=== PATIENT | male | born 1950 | race Caucasian/White ===

== ENCOUNTER → 2017-09-27 | Outpatient (REF) | payer MEDICARE, OTHER ==
[2017-09-27 21:23] LABS: BASO # 0.1 10^3/uL (0.0-0.2); BASO % 0.6 % (0.0-1.0); EOS # 0.2 10^3/uL (0.0-0.50); EOS % 2.8 % (0.0-3.0); HEMATOCRIT 45.6 % (42.0-52.0); IMMATURE GRANULOCYTE % 0.2 % (0-0); LYMPH % 24.4 % (24.0-44.0); MEAN CORPUSCULAR HEMOGLOBIN 29.4 pg (27.0-33.0); MEAN CORPUSCULAR HGB CONC 32.9 g/dl (32.0-36.5); MEAN CORPUSCULAR VOLUME 89.2 fl (80.0-96.0); MONO # 0.7 10^3/uL (0.0-0.8); MONO % 8.8 % (0.0-5.0); NEUTROPHILS # 5.2 10^3/uL (1.8-7.7); NEUTROPHILS % 63.2 % (36.0-66.0); PLATELET COUNT, AUTOMATED 299 10^3/uL (150-450); RED BLOOD COUNT 5.11 10^6/uL (4.30-6.10); RED CELL DISTRIBUTION WIDTH 12.4 % (11.5-14.5); WHITE BLOOD COUNT 8.2 10^3/uL (4.0-10.0)
[2017-09-27 21:36] LABS: ALT/SGPT 26 U/L (12-78); AST/SGOT 19 U/L (7-37); C REACTIVE PROTEIN QUANTITATIV < 0.30 MG/DL (0.00-0.30); CREATININE FOR GFR 1.46 MG/DL (0.70-1.30)
[2017-09-27 21:55] LABS: ERYTHROCYTE SEDIMENTATION RATE 2 mm/hr (0-20)
== END ==
LOC: M LABDRWAD 10:39
DX: Z79.899 Other long term (current) 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 (principal); M45.0 Ankylosing spondylitis of multiple sites in spine
CPT/HCPCS: 84460

== ENCOUNTER → 2017-11-17 | Outpatient (CLI) | payer MEDICARE, BC, OTHER | LOC: M RAD 10:06 | DX: M51.37 Other intervertebral disc degeneration, lumbosacral region (principal) | CPT/HCPCS: 78306 ==

== ENCOUNTER → 2017-12-07 | Outpatient (CLI) | payer MEDICARE, BC, OTHER | LOC: M PAIN 09:45 | DX: M46.96 Unspecified inflammatory spondylopathy, lumbar region (principal); M45.9 Ankylosing spondylitis of unspecified sites in spine; M51.26 Other intervertebral disc displacement, lumbar region; E78.5 Hyperlipidemia, unspecified; I10 Essential (primary) hypertension; E11.9 Type 2 diabetes mellitus without complications; K21.9 Gastro-esophageal reflux disease without esophagitis; Z79.82 Long term (current) use of aspirin; Z79.4 Long term (current) use of insulin; Z79.899 Other long term (current) 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; Z88.8 Allergy status to other drugs, medicaments and biological substances | CPT/HCPCS: G0463 ==

== ENCOUNTER → 2018-01-04 | Outpatient (CLI) | payer MEDICARE, BC, OTHER ==
[~2018-01-04] MED LIST: BUPIVACAINE HCL 0.25% 30 ML VIAL As Ordered; ISOVUE-M 300 61% 15ML VIAL (Q9967) As Ordered; LIDOCAINE 1% SDV INJ 30 ML VIAL As Ordered; TRIAMCINOLONE ACETONIDE SUSP 40 MG/ML VIAL (J3301) As Ordered; diazePAM 5 MG TAB As Ordered; oxyCODONE 5MG TAB As Ordered
== END ==
LOC: M PAIN 08:30
DX: G89.29 Other chronic pain (principal); M47.816 Spondylosis without myelopathy or radiculopathy, lumbar region; M47.817 Spondylosis without myelopathy or radiculopathy, lumbosacral region; E78.5 Hyperlipidemia, unspecified; I10 Essential (primary) hypertension; E11.9 Type 2 diabetes mellitus without complications; K21.9 Gastro-esophageal reflux disease without esophagitis; Z79.82 Long term (current) use of aspirin; Z79.4 Long term (current) use of insulin; Z79.899 Other long term (current) 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
CPT/HCPCS: J3301

== ENCOUNTER → 2018-01-18 | Outpatient (CLI) | payer MEDICARE, BC, OTHER | LOC: M PAIN 10:00 | DX: M47.816 Spondylosis without myelopathy or radiculopathy, lumbar region (principal); M47.817 Spondylosis without myelopathy or radiculopathy, lumbosacral region; M79.1 Myalgia; E78.5 Hyperlipidemia, unspecified; I10 Essential (primary) hypertension; E11.9 Type 2 diabetes mellitus without complications; K21.9 Gastro-esophageal reflux disease without esophagitis; M19.90 Unspecified osteoarthritis, unspecified site; Z79.82 Long term (current) use of aspirin; Z79.4 Long term (current) use of insulin; Z79.899 Other long term (current) 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; Z88.8 Allergy status to other drugs, medicaments and biological substances | CPT/HCPCS: G0463 ==

== ENCOUNTER → 2018-02-03 | Outpatient (CLI) | payer MEDICARE, BC, OTHER ==
[~2018-02-03] MED LIST changes: +BUPIVACAINE HCL 0.25% 10 ML VIAL As Ordered; -ISOVUE-M 300 61% 15ML VIAL (Q9967) As Ordered; -LIDOCAINE 1% SDV INJ 30 ML VIAL As Ordered; -diazePAM 5 MG TAB As Ordered; -oxyCODONE 5MG TAB As Ordered
== END ==
LOC: M PAIN 10:00
DX: G89.29 Other chronic pain (principal); M79.1 Myalgia; E78.5 Hyperlipidemia, unspecified; I10 Essential (primary) hypertension; E11.9 Type 2 diabetes mellitus without complications; K21.9 Gastro-esophageal reflux disease without esophagitis; M45.9 Ankylosing spondylitis of unspecified sites in spine; Z79.82 Long term (current) use of aspirin; Z79.4 Long term (current) use of insulin; Z79.899 Other long term (current) 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; Z88.8 Allergy status to other drugs, medicaments and biological substances
CPT/HCPCS: J3301

== ENCOUNTER → 2018-02-22 | Outpatient (CLI) | payer MEDICARE, BC, OTHER | LOC: M PAIN 09:45 | DX: M47.816 Spondylosis without myelopathy or radiculopathy, lumbar region (principal); M47.817 Spondylosis without myelopathy or radiculopathy, lumbosacral region; M79.1 Myalgia; E78.5 Hyperlipidemia, unspecified; I10 Essential (primary) hypertension; E11.9 Type 2 diabetes mellitus without complications; K21.9 Gastro-esophageal reflux disease without esophagitis; Z79.4 Long term (current) use of insulin; Z79.82 Long term (current) use of aspirin; Z79.899 Other long term (current) 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; Z88.8 Allergy status to other drugs, medicaments and biological substances | CPT/HCPCS: G0463 ==

== ENCOUNTER → 2018-02-23 | Outpatient (CLI) | payer MEDICARE, BC, OTHER ==
[~2018-02-23] MED LIST changes: -BUPIVACAINE HCL 0.25% 10 ML VIAL As Ordered; +ISOVUE-M 300 61% 15ML VIAL (Q9967) As Ordered; +LIDOCAINE 1% SDV INJ 30 ML VIAL As Ordered
[2018-02-23 09:59] LABS: BEDSIDE GLUCOSE 187 MG/DL (80-115)
== END ==
LOC: M PAIN 09:30
DX: G89.29 Other chronic pain (principal); M46.1 Sacroiliitis, not elsewhere classified; E78.5 Hyperlipidemia, unspecified; I10 Essential (primary) hypertension; E11.9 Type 2 diabetes mellitus without complications; K21.9 Gastro-esophageal reflux disease without esophagitis; Z79.4 Long term (current) use of insulin; Z79.82 Long term (current) use of aspirin; Z79.899 Other long term (current) 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
CPT/HCPCS: J3301

== ENCOUNTER → 2018-06-01 | Outpatient (CLI) | payer MEDICARE, BC, OTHER ==
[~2018-06-01] MED LIST changes: +diazePAM 5 MG TAB As Ordered; +oxyCODONE 5MG TAB As Ordered
[2018-06-01 09:26] LABS: BEDSIDE GLUCOSE 188 MG/DL (83-110)
== END ==
LOC: M PAIN 08:30
DX: M47.816 Spondylosis without myelopathy or radiculopathy, lumbar region (principal); M47.817 Spondylosis without myelopathy or radiculopathy, lumbosacral region; E78.5 Hyperlipidemia, unspecified; I10 Essential (primary) hypertension; E11.9 Type 2 diabetes mellitus without complications; K21.9 Gastro-esophageal reflux disease without esophagitis; M45.9 Ankylosing spondylitis of unspecified sites in spine; Z79.82 Long term (current) use of aspirin; Z79.4 Long term (current) use of insulin; Z79.899 Other long term (current) 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; Z88.8 Allergy status to other drugs, medicaments and biological substances
CPT/HCPCS: J3301

== ENCOUNTER → 2018-06-23 | Outpatient (CLI) | payer MEDICARE, BC, OTHER | LOC: M PAIN 10:15 | DX: M47.816 Spondylosis without myelopathy or radiculopathy, lumbar region (principal); M47.817 Spondylosis without myelopathy or radiculopathy, lumbosacral region; E11.9 Type 2 diabetes mellitus without complications; E78.5 Hyperlipidemia, unspecified; I10 Essential (primary) hypertension; K21.9 Gastro-esophageal reflux disease without esophagitis; M19.90 Unspecified osteoarthritis, unspecified site; Z79.82 Long term (current) use of aspirin; Z79.4 Long term (current) use of insulin; Z79.899 Other long term (current) 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; Z88.8 Allergy status to other drugs, medicaments and biological substances | CPT/HCPCS: G0463 ==

== ENCOUNTER → 2018-08-11 | Outpatient (CLI) | payer MEDICARE, BC, OTHER | LOC: M PAIN 09:15 | DX: M47.27 Other spondylosis with radiculopathy, lumbosacral region (principal); G89.29 Other chronic pain; E11.9 Type 2 diabetes mellitus without complications; I10 Essential (primary) hypertension; E78.5 Hyperlipidemia, unspecified; K21.9 Gastro-esophageal reflux disease without esophagitis; M19.90 Unspecified osteoarthritis, unspecified site; Z79.82 Long term (current) use of aspirin; Z79.4 Long term (current) use of insulin; Z79.899 Other long term (current) 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; Z88.8 Allergy status to other drugs, medicaments and biological substances | CPT/HCPCS: G0463 ==

== ENCOUNTER → 2018-09-15 | Outpatient (CLI) | payer MEDICARE, BC, OTHER ==
[~2018-09-15] MED LIST changes: +ASPI81TA85 PO; +ATEN100T PO; -BUPIVACAINE HCL 0.25% 30 ML VIAL As Ordered; +BUPIVACAINE HCL 0.25% 30 ML VIAL As Ordered ONE; +CITA20TA4 PO; +FLON0.054; +HYDR25TAB PO; +INSUH10VL SC; +INSULADS SC; -ISOVUE-M 300 61% 15ML VIAL (Q9967) As Ordered; +ISOVUE-M 300 61% 15ML VIAL (Q9967) As Ordered ONE; -LIDOCAINE 1% SDV INJ 30 ML VIAL As Ordered; +LIDOCAINE 1% SDV INJ 30 ML VIAL As Ordered ONE; +LISI40TAB PO; +PANT40TA3 PO; +SIMV80TA13 PO; -TRIAMCINOLONE ACETONIDE SUSP 40 MG/ML VIAL (J3301) As Ordered; +TRIAMCINOLONE ACETONIDE SUSP 40 MG/ML VIAL (J3301) As Ordered ONE; -diazePAM 5 MG TAB As Ordered; +diazePAM 5 MG TAB As Ordered ONE; -oxyCODONE 5MG TAB As Ordered; +oxyCODONE 5MG TAB As Ordered ONE
--- NOTE | 2018-09-15 10:57 | REP ---
Partial lumbar spine series: Two views . History: Injection procedure for pain. 27 seconds of fluoroscopy time is reported. Findings: A sequence of two fluoroscopically obtained last image hold procedural spot radiographs of the lumbar spine document needle position and contrast injection associated with injection procedure. Electronically Signed by Sánchez Hathaway MD 09/15/2018 10:48 A
--- NOTE | 2018-10-04 02:02 | ECWPNPC ---
PATIENT NAME: TYE CLAUDIO : 1950 GENDER: MALE VISIT DATE: 09/15/2018 DISCHARGE DATE: 09/15/18 1041 VISIT LOCKED DATE TIME: PHYSICIAN: GARRETT MEDLEY MD RESOURCE: GARRETT MEDLEY MD REASON FOR APPOINTMENT 1. BILAT. L4/5-L5/S1 THERAPEUTIC FACET BLOCK HISTORY OF PRESENT ILLNESS HISTORY OF PRESENT ILLNESS: PAIN THE PATIENT DESCRIBES THE PAIN... FALL RISK SCREENING: SCREENING :NO FALLS IN THE PAST YEAR CURRENT MEDICATIONS TAKING ASPIRIN 81 81 MG TABLET CHEWABLE 1 TABLET ORALLY ONCE A DAY, NOTES: 09/14 2099 TAKING ATENOLOL 100 MG TABLET 1 TABLET ORALLY ONCE A DAY, NOTES: 09/14 2099 TAKING CITALOPRAM HYDROBROMIDE 20 MG TABLET 1 TABLET ORALLY ONCE A DAY, NOTES: 09/14 2099 TAKING FLONASE 50 MCG/DOSE INHALER 1 SPRAY IN EACH NOSTRIL NASALLY ONCE A DAY, NOTES: NONE RECENT TAKING HYDROCHLOROTHIAZIDE 25 MG TABLET 1 TABLET IN THE MORNING ORALLY ONCE A DAY, NOTES: 09/14 08 TAKING NOVOLOG FLEXPEN 100 UNIT/ML SOLUTION PEN-INJECTOR SLIDING SCALE SUBCUTANEOUS , NOTES: 18 UNITS 09/14 1799 TAKING LANTUS SOLOSTAR 100 UNIT/ML SOLUTION 60 UNITS SUBCUTANEOUS DAILY, NOTES: 09/14 2099 TAKING LISINOPRIL 40 MG TABLET 1 TABLET ORALLY ONCE A DAY, NOTES: 09/14 2099 TAKING PANTOPRAZOLE SODIUM 40 MG TABLET DELAYED RELEASE 1 TABLET ORALLY ONCE A DAY, NOTES: 09/14 2099 TAKING CRESTOR 20 MG TABLET 1 TABLET ORALLY ONCE A DAY, NOTES: 09/14 2099 TAKING METFORMIN HCL 500 MG TABLET 2 TABLET WITH MEALS ORALLY TWICE A DAY, NOTES: 09/14 2099 TAKING REMICADE 100 MG SOLUTION RECONSTITUTED 900 MG INTRAVENOUS EVERY 4 WEEKS, NOTES: 08/10 TAKING IBUPROFEN 600 MG TABLET 1 TABLET WITH FOOD OR MILK NEEDED ORALLY THREE TIMES A DAY, NOTES: 09/14 2099 TAKING ACETAMINOPHEN 325 MG CAPSULE 1 CAPSULE NEEDED ORALLY EVERY 4 HRS, NOTES: NONE RECENT TAKING GABAPENTIN 300 MG CAPSULE 1-2 DIRECTED ORALLY 2 IN AM,2 IN AFTENOON,1 AT BEDTIME, NOTES: 09/15 0700 NOT-TAKING TIZANIDINE HCL 2 MG TABLET 1 TABLET NEEDED ORALLY THREE TIMES A DAY MEDICATION LIST REVIEWED AND RECONCILED WITH THE PATIENT PAST MEDICAL HISTORY HYPERLIPIDEMIA HYPERTENSION DIABETES MELLITUS TYPE 2 ACID REFLUX ARTHRITIS ANKYLOSIS SPONDYLITIS/ ARTHRITIS HEALTH SPEC - [place] LOW BACK PAIN ALLERGIES LIPITOR: MUSCLE PAIN: SIDE EFFECTS SURGICAL HISTORY LEFT KNEE SURGERY RIGHT FOOT BUNIONECTOMY FAMILY HISTORY FATHER: , DIAGNOSED WITH DIABETES MOTHER: ALIVE, DIAGNOSED WITH STROKE, OTHER 4 SON(S) , 1 DAUGHTER(S) - HEALTHY. MOTHER HAS HISTORY OF ARTHRITIS AND STROKE. SOCIAL HISTORY GENERAL: TOBACCO USE ARE YOU A:NONSMOKER ALCOHOL SCREENING DID YOU HAVE A DRINK CONTAINING ALCOHOL IN THE PAST YEAR?YES HOW OFTEN DID YOU HAVE SIX OR MORE DRINKS ON ONE OCCASION IN THE PAST YEAR?NEVER (0 POINTS) HOW MANY DRINKS DID YOU HAVE ON A TYPICAL DAY WHEN YOU WERE DRINKING IN THE PAST YEAR?1 OR 2 (0 POINTS) HOW OFTEN DID YOU HAVE A DRINK CONTAINING ALCOHOL IN THE PAST YEAR?TWO TO FOUR TIMES A MONTH (2 POINTS) POINTS2 INTERPRETATIONNEGATIVE RECREATIONAL DRUG USE DRUG USE?NO CAFFEINE CAFFEINE USE?YES COFFEE DAILY SYNAGOGUE [id number] SHINTO LANGUAGE LANGUAGES SPOKEN:PARAGUAYAN LEARNING BARRIERS / SPECIAL NEEDS BARRIERS TO LEARNING?NO HEARING IMPAIRED?NO VISION IMPAIRED?YES :CORRECTIVE LENSES COGNITIVELY IMPAIRED?NO READINESS TO LEARN?YES LEARNING PREFERENCES?YES :DEMONSTRATION/VERBAL INSTRUCTION LEARNING CAPABILITIES PRESENT?YES EMOTIONAL BARRIERS?NO SPECIAL DEVICES?NO SR SOLUTIONS CONSULTANT NEEDED?NO DOMESTIC VIOLENCE DO YOU FEEL SAFE IN YOUR ENVIRONMENT?YES NEW PATIENT PAIN DIARY FROM 0-10, WHAT LEVEL IS YOUR PAIN TODAY?7 PAIN CLINIC PFS, CLERGY, PUBLIC HEALTH REFERRALS PFS REFERRAL NEEDED?NO CLERGY REFERRAL NEEDED?NO PUBLIC HEALTH REFERRAL NEEDED?NO HAS THE PATIENT BEEN EDUCATED REGARDING HIS/HER PLAN OF CARE?YES HAS THE PATIENT BEEN EDUCATED REGARDING PAIN, THE RISK FOR PAIN, THE IMPORTANCE OF EFFECTIVE PAIN MANAGEMENT, AND THE PAIN ASSESSMENT PROCESS?YES ADVANCE DIRECTIVE ADVANCE DIRECTIVE DISCUSSED WITH PATIENT:YES REVIEWED 02/23/18 0945 LAS06/01/18 0905 REVIEWED WITH PT. PARMJITWED WITH PT 06/23/18 1032 BV09/15/18 REVIEWED WITH PT. AD. HOSPITALIZATION/MAJOR DIAGNOSTIC PROCEDURE KNEE SURG REVIEW OF SYSTEMS REVIEWED BY: PROVIDER: . CONSTITUTIONAL: ANY CHANGE IN YOUR MEDICAL CONDITION? NO . CHILLS NO . FEVER NO . INFECTION: DO YOU HAVE NEW INFECTIONS? NO . DO YOU HAVE HISTORY OF MRSA? NO . MUSCULOSKELETAL: ANY NEW PATTERNS OF PAIN OR NUMBNESS? NO . GASTROENTEROLOGY: ANY NEW CHANGE IN BOWEL CONTROL? NO . GENITOURINARY: ANY NEW CHANGE IN BLADDER CONTROL? NO . IS THERE A CHANCE YOU COULD BE ? NO . HEMATOLOGY/LYMPH: DO YOU TAKE ANY BLOOD THINNERS? (FOR EXAMPLE- COUMADIN, PLAVIX, AGGRENOX, PLATEL, PRADAXA, OR XARELTO) NO . WHEN WAS YOUR LAST DOSE? DATE: TIME: . NEUROLOGY: HAVE YOU FALLEN IN THE PAST 6 MONTHS? NO . ANY NEW EXTREMITY NUMBNESS OR WEAKNESS? NO . CARDIOLOGY: DO YOU HAVE A PACEMAKER OR DEFIBRILLATOR? NO . RESPIRATORY: HAVE YOU BEEN SICK IN THE PAST WEEK? NO . FEVER NO . FLU LIKE SYMPTOMS? NO . COUGH NO . INTEGUMENTARY: DO YOU HAVE ANY RASHES OR OPEN SORES? NO . ALLERGIC/IMMUNO: ARE YOU ALLERGIC TO SHELLFISH OR IV DYE? NO . ANY NEW ALLERGIES? NO . PSYCHIATRIC: DO YOU HAVE THOUGHTS OF HURTING YOURSELF OR SOMEONE ELSE? NO . ARE YOU ABUSED, NEGLECTED, OR IN AN UNSAFE ENVIRONMENT? NO . ENDOCRINOLOGY: ARE YOU DIABETIC? YES, FSBS 119 @ 0730 THIS MORNING, DR. MEDLEY AWARE . OTHER: DO YOU NEED ANY PRESCRIPTIONS? NO . IF YES, PLEASE LIST: ____ . ANY NEW PROBLEMS WITH YOUR MEDICATIONS? NO . WHEN DID YOU LAST EAT? 09/14 2100 . WHEN DID YOU LAST DRINK? 09/15 0700 . WHAT DID YOU LAST DRINK? ____ . NAME OF PERSON DRIVING YOU HOME? KELECHI CLAUDIO . DO YOU HAVE ANY OTHER QUESTIONS OR CONCERNS NO PT HAS NOT HAD ANY VACCINES IN THE PAST 30 DAYS. HE DID RECEIVE [id number](GETS EVERY 4 W[address]) DR[address] MEDLEY EXPLAINED THE RISKS OF GETTING THE PROCEDURE TODAY AND PT CHOSE TO PROCEED WITH THE PROCEDURE. . VITAL SIGNS WT 258 LBS, HT 70 IN, BMI 37.02 INDEX, BP 134/75 MM HG, HR 77 /MIN, RR 18 /MIN, TEMP 97.8 F, OXYGEN SAT % 96%, SAFE IN ENV? (Y/N) Y, NA INITIALS AK 09:06, REVIEWED BY: AD. ASSESSMENTS SPONDYLOSIS OF LUMBAR REGION WITHOUT MYELOPATHY OR RADICULOPATHY - M47.816 (PRIMARY) SPONDYLOSIS OF LUMBOSACRAL REGION WITHOUT MYELOPATHY OR RADICULOPATHY - M47.817 PROCEDURES PN LUMBAR FACET BLOCK THERAPEUTIC PRE PROCEDURE DIAGNOSIS LUMBAR SPONDYLOSIS, LUMBOSACRAL SPONDYLOSIS POST PROCEDURE DIAGNOSIS LUMBAR SPONDYLOSIS, LUMBOSACRAL SPONDYLOSIS PROCEDURE BILATERAL L4-L5 AND BILATERAL L5-S1 LUMBAR FACET THERAPEUTIC BLOCK SURGEON DR. GARRETT MEDLEY CLASSIFICATION COUNSELOR NONE ANESTHESIA LOCAL PRE PROCEDURE NOTE THE PATIENT HAS A HISTORY OF CHRONIC LOW BACK PAIN. I EVALUATE THE PATIENT AND REVIEWED THE CHART. I WENT OVER THE RISKS, ALTERNATIVES, AND BENEFITS ASSOCIATED WITH THIS PROCEDURE. THE PATIENT WOULD LIKE TO PROCEED AND GIVE CONSENT TO PERFORMED THE PROCEDURE. THE PATIENT DENIES UNEXPLAINABLE WEIGHT LOSS, FEVER, CHILLS, OR NEW CHANGES IN URINARY OR BOWEL CONTROL DESCRIPTION OF PROCEDURE THE PATIENT WAS BROUGHT TO THE PROCEDURE ROOM AND PLACED IN THE PRONE POSITION. THE LUMBOSACRAL AREA WAS CLEANED WITH CHLORAPREP SOLUTION AND DRAPED ASEPTICALLY. THE PROCEDURE WAS DONE UNDER STERILE CONDITIONS. I CHECKED LATERALITY AND THE LEVEL WHERE THE PROCEDURE WAS GOING TO BE PERFORMED WITH THE PATIENT AND THE SUPPORTING STAFF AT THE MOMENT OF THE TIME OUT IN THE PROCEDURE ROOM. UNDER FLUOROSCOPIC GUIDANCE, THE TARGET POINT WAS SELECTED AT THE RIGHT AND LEFT L4-L5 AND RIGHT AND LEFT L5-S1 FACET JOINT. TARGET POINT WAS SELECTED AFTER LATERAL ROTATION AND TILT OF THE MAGNIFIER OF THE C-ARM. LIDOCAINE 0.5% WAS USED TO NUMB THE SKIN AND THE SUBCUTANEOUS TISSUE BELOW IT. SPINAL NEEDLES, 22-GAUGE, WERE ADVANCED UNDER FLUOROSCOPIC GUIDANCE AND FOLLOWING PATIENT FEEDBACK UNTIL THE TARGETS WERE TOUCHED. THE POSITION OF THE NEEDLES WAS VERIFIED WITH AP AND LATERAL VIEWS. AFTER PROPER POSITION OF THE NEEDLES WAS ACHIEVED, ISOVUE-M DYE 30% 0.1 ML WAS INJECTED SHOWING ADEQUATE SPREAD OF THE DYE. THEN A SOLUTION OF 1.9 ML OF BUPIVACAINE 0.125% OF KENALOG 10 MG WAS INJECTED AT EACH SITE. THERE WAS NO EVIDENCE OF BLOOD, PARESTHESIA OR CEREBROSPINAL FLUID DURING THE PROCEDURE. THE PATIENT WAS SENT TO THE RECOVERY ROOM. THE PATIENT WAS MOVING THE EXTREMITIES AND DOING WELL. THERE WAS NO COMPLICATION DURING THE PROCEDURE. FLUOROSCOPY TIME WAS 27 SECONDS POST PROCEDURE NOTE THE PATIENT WILL BE SEEN IN A FOLLOW UP IN THE NEXT FEW WEEKS. INSTRUCTIONS WERE GIVEN, QUESTIONS WERE ANSWERED, AND THE PATIENT EXPRESSED UNDERSTANDING AND AGREES WITH THE PLAN. I, BUCK LANCASTER, DOCUMENTED THE ABOVE INFORMATION ACTING A SCRIBE FOR DR. MEDLEY. I HAVE REVIEWED THE ABOVE DOCUMENT, WRITTEN BY BUCK NARANJO AND I VERIFY THAT IT IS ACCURATE. DIAGNOSTIC IMAGING [facility] FACET BLOCK (PAIN)[id number] PROCEDURE CODES 6045F RADXPS IN END [id number] PXD [id number] INJ PARAVERT F JNT L/S 1 LEV, MODIFIERS: 50 [id number] INJ PARAVERT F JNT L/S 2 LEV, MODIFIERS: 50 DISPOSITION & COMMUNICATION FOLLOW UP 3 WEEKS ELECTRONICALLY SIGNED BY GARRETT MEDLEY MD, MD ON 10/03/2018 AT 11:08 AM EST DISCLAIMER : THIS IS A VISIT SUMMARY EXTRACTED FROM THE [employer] CHART. IT IS NOT A COPY OF THE [employer] PROGRESS NOTE. MTDD
== END ==
LOC: M PAIN 08:30
PROVIDERS: ATTEND Anesthesiology
DX: G89.29 Other chronic pain (principal); M47.816 Spondylosis without myelopathy or radiculopathy, lumbar region; M47.817 Spondylosis without myelopathy or radiculopathy, lumbosacral region; E11.9 Type 2 diabetes mellitus without complications; I10 Essential (primary) hypertension; E78.5 Hyperlipidemia, unspecified; K21.9 Gastro-esophageal reflux disease without esophagitis; M19.90 Unspecified osteoarthritis, unspecified site; M45.9 Ankylosing spondylitis of unspecified sites in spine; E66.01 Morbid (severe) obesity due to excess calories; Z68.37 Body mass index [BMI] 37.0-37.9, adult; Z79.82 Long term (current) use of aspirin; Z79.4 Long term (current) use of insulin; Z79.899 Other long term (current) 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; Z88.8 Allergy status to other drugs, medicaments and biological substances
CPT/HCPCS: 64493; 64494; J3301; Q9967

== ENCOUNTER → 2018-10-11 | Outpatient (CLI) | payer MEDICARE, BC, OTHER ==
[~2018-10-11] MED LIST changes: -BUPIVACAINE HCL 0.25% 30 ML VIAL As Ordered ONE; -ISOVUE-M 300 61% 15ML VIAL (Q9967) As Ordered ONE; -LIDOCAINE 1% SDV INJ 30 ML VIAL As Ordered ONE; -TRIAMCINOLONE ACETONIDE SUSP 40 MG/ML VIAL (J3301) As Ordered ONE; -diazePAM 5 MG TAB As Ordered ONE; -oxyCODONE 5MG TAB As Ordered ONE
--- NOTE | 2018-10-27 00:20 | ECWPNPC ---
PATIENT NAME: TYE CLAUDIO : 1950 GENDER: MALE VISIT DATE: 10/11/2018 DISCHARGE DATE: 10/11/18 1148 VISIT LOCKED DATE TIME: PHYSICIAN: NUHA DE JESUS RESOURCE: NUHA DE JESUS REASON FOR APPOINTMENT 1. POST PROC HISTORY OF PRESENT ILLNESS HISTORY OF PRESENT ILLNESS: HERE FOR POST PROCEDURE F/U.HAD BILAT. L4/5-L5/S1 FACET BLOCK THERAPEUTIC ON 09/15/18.REPORTING >50% IMPROVEMENT THAT CONTINUES TODAY ACROSS LOW BACK.CHIEF AREA OF PAIN IS LOW THORACIC.RATING LOW THORACIC PAIN 5/10.PAIN IS AGGREVATED WITH POSITION CHANGE. PAIN THE PATIENT DESCRIBES THE PAIN... FALL RISK SCREENING: SCREENING :NO FALLS IN THE PAST YEAR CURRENT MEDICATIONS TAKING ASPIRIN 81 81 MG TABLET CHEWABLE 1 TABLET ORALLY ONCE A DAY, NOTES: 09/14 2099 TAKING ATENOLOL 100 MG TABLET 1 TABLET ORALLY ONCE A DAY, NOTES: 09/14 2099 TAKING CITALOPRAM HYDROBROMIDE 20 MG TABLET 1 TABLET ORALLY ONCE A DAY, NOTES: 09/14 2099 TAKING FLONASE 50 MCG/DOSE INHALER 1 SPRAY IN EACH NOSTRIL NASALLY ONCE A DAY, NOTES: NONE RECENT TAKING HYDROCHLOROTHIAZIDE 25 MG TABLET 1 TABLET IN THE MORNING ORALLY ONCE A DAY, NOTES: 09/14 0800 TAKING NOVOLOG FLEXPEN 100 UNIT/ML SOLUTION PEN-INJECTOR SLIDING SCALE SUBCUTANEOUS , NOTES: 18 UNITS 09/14 1799 TAKING LANTUS SOLOSTAR 100 UNIT/ML SOLUTION 60 UNITS SUBCUTANEOUS DAILY, NOTES: 09/14 2099 TAKING LISINOPRIL 40 MG TABLET 1 TABLET ORALLY ONCE A DAY, NOTES: 09/14 2099 TAKING PANTOPRAZOLE SODIUM 40 MG TABLET DELAYED RELEASE 1 TABLET ORALLY ONCE A DAY, NOTES: 09/14 2099 TAKING CRESTOR 20 MG TABLET 1 TABLET ORALLY ONCE A DAY, NOTES: 09/14 2099 TAKING METFORMIN HCL 500 MG TABLET 2 TABLET WITH MEALS ORALLY TWICE A DAY, NOTES: 09/14 2099 TAKING REMICADE 100 MG SOLUTION RECONSTITUTED 900 MG INTRAVENOUS EVERY 4 WEEKS, NOTES: 08/10 TAKING IBUPROFEN 600 MG TABLET 1 TABLET WITH FOOD OR MILK NEEDED ORALLY THREE TIMES A DAY, NOTES: 09/14 2099 TAKING ACETAMINOPHEN 325 MG CAPSULE 1 CAPSULE NEEDED ORALLY EVERY 4 HRS, NOTES: NONE RECENT TAKING GABAPENTIN 300 MG CAPSULE 1-2 DIRECTED ORALLY 2 IN AM,2 IN AFTENOON,1 AT BEDTIME, NOTES: 09/15 0700 NOT-TAKING TIZANIDINE HCL 2 MG TABLET 1 TABLET NEEDED ORALLY THREE TIMES A DAY MEDICATION LIST REVIEWED AND RECONCILED WITH THE PATIENT PAST MEDICAL HISTORY HYPERLIPIDEMIA HYPERTENSION DIABETES MELLITUS TYPE 2 ACID REFLUX ARTHRITIS ANKYLOSIS SPONDYLITIS/ ARTHRITIS HEALTH SPEC - [place] LOW BACK PAIN ALLERGIES LIPITOR: MUSCLE PAIN: SIDE EFFECTS SURGICAL HISTORY LEFT KNEE SURGERY RIGHT FOOT BUNIONECTOMY FAMILY HISTORY FATHER: , DIAGNOSED WITH DIABETES MOTHER: ALIVE, DIAGNOSED WITH STROKE, OTHER 4 SON(S) , 1 DAUGHTER(S) - HEALTHY. MOTHER HAS HISTORY OF ARTHRITIS AND STROKE. SOCIAL HISTORY GENERAL: TOBACCO USE ARE YOU A:NONSMOKER ALCOHOL SCREENING DID YOU HAVE A DRINK CONTAINING ALCOHOL IN THE PAST YEAR?YES HOW OFTEN DID YOU HAVE SIX OR MORE DRINKS ON ONE OCCASION IN THE PAST YEAR?NEVER (0 POINTS) HOW MANY DRINKS DID YOU HAVE ON A TYPICAL DAY WHEN YOU WERE DRINKING IN THE PAST YEAR?1 OR 2 (0 POINTS) HOW OFTEN DID YOU HAVE A DRINK CONTAINING ALCOHOL IN THE PAST YEAR?TWO TO FOUR TIMES A MONTH (2 POINTS) POINTS2 INTERPRETATIONNEGATIVE RECREATIONAL DRUG USE DRUG USE?NO CAFFEINE CAFFEINE USE?YES COFFEE DAILY RESTORATION [id number] AMISH LANGUAGE LANGUAGES SPOKEN:[place] LEARNING BARRIERS / SPECIAL NEEDS BARRIERS TO LEARNING?NO HEARING IMPAIRED?NO VISION IMPAIRED?YES :CORRECTIVE LENSES COGNITIVELY IMPAIRED?NO READINESS TO LEARN?YES LEARNING PREFERENCES?YES :DEMONSTRATION/VERBAL INSTRUCTION LEARNING CAPABILITIES PRESENT?YES EMOTIONAL BARRIERS?NO SPECIAL DEVICES?NO DRAWING HAND NEEDED?NO DOMESTIC VIOLENCE DO YOU FEEL SAFE IN YOUR ENVIRONMENT?YES NEW PATIENT PAIN DIARY FROM 0-10, WHAT LEVEL IS YOUR PAIN TODAY?7 PAIN CLINIC PFS, CLERGY, PUBLIC HEALTH REFERRALS PFS REFERRAL NEEDED?NO CLERGY REFERRAL NEEDED?NO PUBLIC HEALTH REFERRAL NEEDED?NO HAS THE PATIENT BEEN EDUCATED REGARDING HIS/HER PLAN OF CARE?YES HAS THE PATIENT BEEN EDUCATED REGARDING PAIN, THE RISK FOR PAIN, THE IMPORTANCE OF EFFECTIVE PAIN MANAGEMENT, AND THE PAIN ASSESSMENT PROCESS?YES ADVANCE DIRECTIVE ADVANCE DIRECTIVE DISCUSSED WITH PATIENT:YES PT HAS NO ADVANCED DIRECTIVES, INFORMATION GIVEN, DECLINES ASSISTANCE REVIEWED 02/23/18 0945 LAS06/01/18 0905 REVIEWED WITH PT. ADREDUINIEWED WITH PT 06/23/18 1032 BV09/15/18 REVIEWED WITH PT. NAYELID WITH PT 10/11/18 1130 LAS. HOSPITALIZATION/MAJOR DIAGNOSTIC PROCEDURE KNEE SURG REVIEW OF SYSTEMS REVIEWED BY: PROVIDER: NUHA CALVIN . CONSTITUTIONAL: ANY CHANGE IN YOUR MEDICAL CONDITION? NO . CHILLS NO . FEVER NO . INFECTION: DO YOU HAVE NEW INFECTIONS? NO . DO YOU HAVE HISTORY OF MRSA? NO . MUSCULOSKELETAL: ANY NEW PATTERNS OF PAIN OR NUMBNESS? NO . GASTROENTEROLOGY: ANY NEW CHANGE IN BOWEL CONTROL? NO . GENITOURINARY: ANY NEW CHANGE IN BLADDER CONTROL? NO . IS THERE A CHANCE YOU COULD BE ? NO . HEMATOLOGY/LYMPH: DO YOU TAKE ANY BLOOD THINNERS? (FOR EXAMPLE- COUMADIN, PLAVIX, AGGRENOX, PLATEL, PRADAXA, OR XARELTO) NO . WHEN WAS YOUR LAST DOSE? DATE: TIME: . NEUROLOGY: HAVE YOU FALLEN IN THE PAST 12 MONTHS? NO . ANY NEW EXTREMITY NUMBNESS OR WEAKNESS? NO . CARDIOLOGY: DO YOU HAVE A PACEMAKER OR DEFIBRILLATOR? NO . RESPIRATORY: HAVE YOU BEEN SICK IN THE PAST WEEK? NO . FEVER NO . FLU LIKE SYMPTOMS? NO . COUGH NO . INTEGUMENTARY: DO YOU HAVE ANY RASHES OR OPEN SORES? NO . ALLERGIC/IMMUNO: ARE YOU ALLERGIC TO IV DYE? NO . ANY NEW ALLERGIES? NO . PSYCHIATRIC: DO YOU HAVE THOUGHTS OF HURTING YOURSELF OR SOMEONE ELSE? NO . ARE YOU ABUSED, NEGLECTED, OR IN AN UNSAFE ENVIRONMENT? NO . ENDOCRINOLOGY: ARE YOU DIABETIC? YES . OTHER: DO YOU NEED ANY PRESCRIPTIONS? NO . IF YES, PLEASE LIST: ____ . ANY NEW PROBLEMS WITH YOUR MEDICATIONS? NO . WHEN DID YOU LAST EAT? ____ . WHEN DID YOU LAST DRINK? ____ . WHAT DID YOU LAST DRINK? ____ . NAME OF PERSON DRIVING YOU HOME? ____ . DO YOU HAVE ANY OTHER QUESTIONS OR CONCERNS NO . VITAL SIGNS WT 251 LBS, HT 70 IN, BMI 36.01 INDEX, BP 115/72 MM HG, HR 79 /MIN, RR 18 /MIN, TEMP 97.5 F, OXYGEN SAT % 94%, SAFE IN ENV? (Y/N) YES, NA INITIALS SC 11:18, REVIEWED BY: MARCIO. EXAMINATION GENERAL EXAMINATION: GENERAL APPEARANCE:AWAKE,ALERT ,PLEAASANT . PSYCHAFFECT NORMAL . LUNGS:LUNG ANDERSON ARE CLEAR TO AUSCULTATION BILATERALLY. GOOD MOVEMENT OF AIR . HEART:S1, S2 IN A REGULAR RATE AND RHYTHM. NO SIGNIFICANT MURMURS, RUBS OR GALLOPS NOTED . THORACIC SPINETENDER WITH ROJM OF SPINE LOW TO MID THORACIC. ASSESSMENTS THORACIC SPINE PAIN - M54.6 (PRIMARY) TREATMENT THORACIC SPINE PAIN [facility] MRI SPINE,THORACIC WITHOUT [id number] [place] 10/11/2018 11:47:21 AM > MEDICARE NO AUTH NEEDED PROCEDURE CODES FA211 ESTABILISHED PATIENT [facility] FACILITY CHARGE DISPOSITION & COMMUNICATION FOLLOW UP 4 WEEKS (REASON: REVIEW MRI) ELECTRONICALLY SIGNED BY MARIXA FONTANA ON 10/26/2018 AT 02:01 PM EST DISCLAIMER : THIS IS A VISIT SUMMARY EXTRACTED FROM THE [employer] CHART. IT IS NOT A COPY OF THE [employer] PROGRESS NOTE. MYNOR
== END ==
LOC: M PAIN 10:00
PROVIDERS: ATTEND Nurse Practitioner Family
DX: M54.6 Pain in thoracic spine (principal); E78.5 Hyperlipidemia, unspecified; I10 Essential (primary) hypertension; E11.9 Type 2 diabetes mellitus without complications; K21.9 Gastro-esophageal reflux disease without esophagitis; M45.9 Ankylosing spondylitis of unspecified sites in spine; Z79.82 Long term (current) use of aspirin; Z79.4 Long term (current) use of insulin; Z79.899 Other long term (current) 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; Z88.8 Allergy status to other drugs, medicaments and biological substances

== ENCOUNTER → 2018-10-31 | Outpatient (CLI) | payer MEDICARE, BC, OTHER ==
--- NOTE | 2018-10-31 14:07 | REP ---
MR THORACIC SPINE WITHOUT CONTRAST: HISTORY: Thoracic pain. A disc bulge is present at the T8-9 level. There is minimal effacement of the thecal sac without spinal cord compression. The T8 neural foramina are patent. A disc bulge is present at the T12-L1 level. There is minimal effacement of the thecal sac without spinal cord compression. The T12 neural foramina are patent. There is no other disc bulge or herniation. The remaining neural foramen are patent. The spinal cord is normal in signal intensity. There is loss of height of several mid and lower thoracic intervertebral discs. Increased signal intensity on T2-weighted images is present in the endplates of several mid and lower thoracic vertebral bodies. This represents degenerative change. IMPRESSION: Disc bulges at the T8-9 and T12-L1 levels without spinal cord compression. Electronically Signed by Rosalio Atkinson MD 10/31/2018 02:10 P
== END ==
LOC: M RAD 10:35
PROVIDERS: ATTEND Nurse Practitioner Family
DX: M51.24 Other intervertebral disc displacement, thoracic region (principal); M51.25 Other intervertebral disc displacement, thoracolumbar region

== ENCOUNTER → 2018-11-17 | Outpatient (CLI) | payer MEDICARE, BC, OTHER ==
--- NOTE | 2018-12-03 02:29 | ECWPNPC ---
PATIENT NAME: TYE CLAUDIO : 1950 GENDER: MALE VISIT DATE: 11/17/2018 DISCHARGE DATE: 11/17/18 1609 VISIT LOCKED DATE TIME: PHYSICIAN: NUHA DE JESUS RESOURCE: NUHA DE JESUS DISCLAIMER : THIS IS A VISIT SUMMARY [facility]ED FROM [facility]. IT IS NOT A COPY OF THE [facility] PROGRESS NOTE. MYNOR
== END ==
LOC: M PAIN 14:45
PROVIDERS: ATTEND Nurse Practitioner Family
DX: M47.814 Spondylosis without myelopathy or radiculopathy, thoracic region (principal); G89.29 Other chronic pain; E11.9 Type 2 diabetes mellitus without complications; I10 Essential (primary) hypertension; K21.9 Gastro-esophageal reflux disease without esophagitis; M19.90 Unspecified osteoarthritis, unspecified site; E78.5 Hyperlipidemia, unspecified; Z79.82 Long term (current) use of aspirin; Z79.4 Long term (current) use of insulin; Z79.899 Other long term (current) 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; Z88.8 Allergy status to other drugs, medicaments and biological substances

== ENCOUNTER → 2018-12-28 | Outpatient (CLI) | payer MEDICARE, BC, OTHER ==
[~2018-12-28] MED LIST changes: +BUPIVACAINE HCL 0.25% 30 ML VIAL As Ordered ONE; -CITA20TA4 PO; +CITA20TA6 PO; +HYDR-2541 PO; -HYDR25TAB PO; +ISOVUE-M 300 61% 15ML VIAL (Q9967) As Ordered ONE; +LIDOCAINE 1% SDV INJ 30 ML VIAL As Ordered ONE; +LISI40TA52 PO; -LISI40TAB PO; +TRIAMCINOLONE ACETONIDE SUSP 40 MG/ML VIAL (J3301) As Ordered ONE; +diazePAM 5 MG TAB As Ordered ONE; +oxyCODONE 5MG TAB As Ordered ONE
--- NOTE | 2018-12-28 11:25 | REP ---
Partial lumbar spine series: Two views . History: Injection procedure for pain. 25 seconds of fluoroscopy time is reported. Findings: A sequence of two fluoroscopically obtained last image hold procedural spot radiographs of the lumbar spine document needle position and contrast injection associated with injection procedure. Electronically Signed by Sánchez Hathaway MD 12/28/2018 11:15 A
--- NOTE | 2018-12-28 13:31 | REP ---
Chest x-ray: Three views. History: Rule out pneumothorax. Comparison study: July 03, 2010. Findings: Inspiration and expiration AP views are obtained along the lateral film. There is no evidence of pneumothorax or hydrothorax. Lung ham are clear. Pleural angles are sharp. Heart size is normal. There are degenerative changes in the thoracic spine. Impression: No active disease. No pneumothorax seen. Electronically Signed by Sánchez Hathaway MD 12/28/2018 04:01 P
--- NOTE | 2019-01-16 | ECWPNPC ---
PATIENT NAME: TYE CLAUDIO : 1950 GENDER: MALE VISIT DATE: 12/28/2018 DISCHARGE DATE: 12/28/18 1201 VISIT LOCKED DATE TIME: PHYSICIAN: GARRETT MEDLEY MD RESOURCE: GARRETT MEDLEY MD REASON FOR APPOINTMENT 1. BILAT THORACIC FACET BLOCK THERAPEUTIC HISTORY OF PRESENT ILLNESS HISTORY OF PRESENT ILLNESS: PAIN THE PATIENT DESCRIBES THE PAIN... FALL RISK SCREENING: SCREENING :NO FALLS REPORTED IN THE LAST YEAR CURRENT MEDICATIONS TAKING ASPIRIN 81 81 MG TABLET CHEWABLE 1 TABLET ORALLY ONCE A DAY, NOTES: 12/27/182099 TAKING ATENOLOL 100 MG TABLET 1 TABLET ORALLY ONCE A DAY, NOTES: 12/27/182099 TAKING CITALOPRAM HYDROBROMIDE 20 MG TABLET 1 TABLET ORALLY ONCE A DAY, NOTES: 12/27/182099 TAKING FLONASE 50 MCG/DOSE INHALER 1 SPRAY IN EACH NOSTRIL NASALLY ONCE A DAY, NOTES: 12/27/182099 TAKING HYDROCHLOROTHIAZIDE 25 MG TABLET 1 TABLET IN THE MORNING ORALLY ONCE A DAY, NOTES: 12/27/18 09 TAKING NOVOLOG FLEXPEN 100 UNIT/ML SOLUTION PEN-INJECTOR SLIDING SCALE SUBCUTANEOUS , NOTES: 12/27/181799 TAKING LANTUS SOLOSTAR 100 UNIT/ML SOLUTION 70 UNITS SUBCUTANEOUS DAILY, NOTES: 12/27/182099 TAKING LISINOPRIL 40 MG TABLET 1 TABLET ORALLY ONCE A DAY, NOTES: 12/27/182099 TAKING PANTOPRAZOLE SODIUM 40 MG TABLET DELAYED RELEASE 1 TABLET ORALLY ONCE A DAY, NOTES: 12/27/182099 TAKING CRESTOR 20 MG TABLET 1 TABLET ORALLY ONCE A DAY, NOTES: 12/27/182099 TAKING METFORMIN HCL 500 MG TABLET 1 TABLET WITH MEALS ORALLY TWICE A DAY, NOTES: 12/27/182099 TAKING REMICADE 100 MG SOLUTION RECONSTITUTED 900 MG INTRAVENOUS EVERY 4 WEEKS, NOTES: 5 WEEKS AGO TAKING IBUPROFEN 600 MG TABLET 1 TABLET WITH FOOD OR MILK NEEDED ORALLY THREE TIMES A DAY, NOTES: 12/27/182099 TAKING ACETAMINOPHEN 325 MG CAPSULE 1 CAPSULE NEEDED ORALLY EVERY 4 HRS, NOTES: 12/27/182099 TAKING GABAPENTIN 300 MG CAPSULE 1-2 DIRECTED ORALLY 2 IN AM,2 IN AFTENOON,1 AT BEDTIME, NOTES: 12/27/182099 MEDICATION LIST REVIEWED AND RECONCILED WITH THE PATIENT PAST MEDICAL HISTORY HYPERLIPIDEMIA HYPERTENSION DIABETES MELLITUS TYPE 2 ACID REFLUX ARTHRITIS ANKYLOSIS SPONDYLITIS/ ARTHRITIS HEALTH SPEC - S[place]AC[place] BACK PAIN ALLERGIES LIPITOR: MUSCLE PAIN - SIDE EFFECTS SURGICAL HISTORY LEFT KNEE SURGERY RIGHT FOOT BUNIONECTOMY FAMILY HISTORY FATHER: , DIAGNOSED WITH DIABETES MOTHER: ALIVE, STROKE, OTHER 4 SON(S) , 1 DAUGHTER(S) - HEALTHY. MOTHER HAS HISTORY OF ARTHRITIS AND STROKE. SOCIAL HISTORY GENERAL: TOBACCO USE ARE YOU A:NONSMOKER PAIN CLINIC PFS, CLERGY, PUBLIC HEALTH REFERRALS PFS REFERRAL NEEDED?NO CLERGY REFERRAL NEEDED?NO PUBLIC HEALTH REFERRAL NEEDED?NO HAS THE PATIENT BEEN EDUCATED REGARDING HIS/HER PLAN OF CARE?YES HAS THE PATIENT BEEN EDUCATED REGARDING PAIN, THE RISK FOR PAIN, THE IMPORTANCE OF EFFECTIVE PAIN MANAGEMENT, AND THE PAIN ASSESSMENT PROCESS?YES LATEX QUESTIONNAIRE LATEX ALLERGY : HAVE YOU EVER DEVELOPED ANY TYPE OF REACTION AFTER HANDLING LATEX PRODUCTS SUCH RUBBER GLOVES, CONDOMS, DIAPHRAGMS, BALLOONS, SOCKS, OR UNDERWEAR?NO LATEX ALLERGY : HAVE YOU EVER DEVELOPED ANY TYPE OF REACTION DURING OR AFTER DENTAL APPOINTMENT, VAGINAL/RECTAL EXAMINATION, SURGICAL PROCEDURE, OR ANY OTHER EXPOSURE?NO LATEX RISK : HAVE YOU EVER HAD ANY DIFFICULTY BREATHING OR HIVES AFTER EATING OR HANDLING ANY FRUITS, OR VEGETABLES; SUCH KIWI, BANANAS, STONE FRUITS, OR CHESTNUTSNO LATEX RISK : DO YOU HAVE A PREVIOUS PERSONAL HISTORY OF MORE THAN NINE SURGERIES, SPINA BIFIDA, OR REPEATED CATHERTIZATIONS? NO LATEX RISK : ARE YOU FREQUENTLY EXPOSED TO LATEX PRODUCTS IN YOUR OCCUPATION?NO DATE ASKED : 12/28/2018 CAFFEINE CAFFEINE USE?YES COFFEE DAILY ADVANCE DIRECTIVE ADVANCE DIRECTIVE DISCUSSED WITH PATIENT:YES PATIENT DECLINED HCP INFORMATION, STATES THAT HE HAS THE INFORMATION AT HOME. [id number] MUSLIM LANGUAGE LANGUAGES SPOKEN:VIETNAMESE DOMESTIC VIOLENCE DO YOU FEEL SAFE IN YOUR ENVIRONMENT?YES ALCOHOL SCREENING DID YOU HAVE A DRINK CONTAINING ALCOHOL IN THE PAST YEAR?YES HOW OFTEN DID YOU HAVE A DRINK CONTAINING ALCOHOL IN THE PAST YEAR?TWO TO FOUR TIMES A MONTH (2 POINTS) HOW MANY DRINKS DID YOU HAVE ON A TYPICAL DAY WHEN YOU WERE DRINKING IN THE PAST YEAR?1 OR 2 (0 POINTS) HOW OFTEN DID YOU HAVE SIX OR MORE DRINKS ON ONE OCCASION IN THE PAST YEAR?NEVER (0 POINTS) POINTS2 INTERPRETATIONNEGATIVE RECREATIONAL DRUG USE DRUG USE?NO LEARNING BARRIERS / SPECIAL NEEDS BARRIERS TO LEARNING?NO HEARING IMPAIRED?NO VISION IMPAIRED?YES :CORRECTIVE LENSES COGNITIVELY IMPAIRED?NO READINESS TO LEARN?YES LEARNING PREFERENCES?YES :DEMONSTRATION/VERBAL INSTRUCTION LEARNING CAPABILITIES PRESENT?YES EMOTIONAL BARRIERS?NO SPECIAL DEVICES?NO BLOGS MANAGER NEEDED?NO REVIEWED 02/23/18 0945 LAS06/01/18 0905 REVIEWED WITH PT. FLORINDA WITH PT 06/23/18 1032 BV09/15/18 REVIEWED WITH PT. FLORINDA WITH PT 10/11/18 1130 LASREVIEWED WITH PATIENT 12/28/18 0924 JS11/17/18 REVIEWED WITH PT. HOSPITALIZATION/MAJOR DIAGNOSTIC PROCEDURE KNEE SURG REVIEW OF SYSTEMS REVIEWED BY: PROVIDER: . CONSTITUTIONAL: ANY CHANGE IN YOUR MEDICAL CONDITION? NO . CHILLS NO . FEVER NO . INFECTION: DO YOU HAVE NEW INFECTIONS? NO . DO YOU HAVE HISTORY OF MRSA? NO . MUSCULOSKELETAL: ANY NEW PATTERNS OF PAIN OR NUMBNESS? NO . GASTROENTEROLOGY: ANY NEW CHANGE IN BOWEL CONTROL? NO . GENITOURINARY: ANY NEW CHANGE IN BLADDER CONTROL? NO . IS THERE A CHANCE YOU COULD BE ? NO . HEMATOLOGY/LYMPH: DO YOU TAKE ANY BLOOD THINNERS? (FOR EXAMPLE- COUMADIN, PLAVIX, AGGRENOX, PLATEL, PRADAXA, OR XARELTO) NO . WHEN WAS YOUR LAST DOSE? DATE: TIME: . NEUROLOGY: HAVE YOU FALLEN IN THE PAST 12 MONTHS? NO . ANY NEW EXTREMITY NUMBNESS OR WEAKNESS? NO . CARDIOLOGY: DO YOU HAVE A PACEMAKER OR DEFIBRILLATOR? NO . RESPIRATORY: HAVE YOU BEEN SICK IN THE PAST WEEK? NO . FEVER NO . FLU LIKE SYMPTOMS? NO . COUGH NO . INTEGUMENTARY: DO YOU HAVE ANY RASHES OR OPEN SORES? NO . ALLERGIC/IMMUNO: ARE YOU ALLERGIC TO IV DYE? NO . ANY NEW ALLERGIES? NO . PSYCHIATRIC: DO YOU HAVE THOUGHTS OF HURTING YOURSELF OR SOMEONE ELSE? NO . ARE YOU ABUSED, NEGLECTED, OR IN AN UNSAFE ENVIRONMENT? NO . ENDOCRINOLOGY: ARE YOU DIABETIC? YES, FSBS 140 AT 0700 AM . OTHER: DO YOU NEED ANY PRESCRIPTIONS? NO . IF YES, PLEASE LIST: ____ . ANY NEW PROBLEMS WITH YOUR MEDICATIONS? NO . WHEN DID YOU LAST EAT? 12/27/181999 . WHEN DID YOU LAST DRINK? 12/27/180 . WHAT DID YOU LAST DRINK? WATER . NAME OF PERSON DRIVING YOU HOME? KELECHI . DO YOU HAVE ANY OTHER QUESTIONS OR CONCERNS NO . VITAL SIGNS WT 254.6 LBS, HT 70 IN, BMI 36.53 INDEX, BP 143/81 MM HG, HR 67 /MIN, RR 18 /MIN, TEMP 96.7 F, OXYGEN SAT % 98%, BLOOD GLUCOSE LEVEL 140 THIS AM PER PATIENT, SAFE IN ENV? (Y/N) YES, NA INITIALS RI 09:10, REVIEWED BY: JS. 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 I EVALUATED THE PATIENT AND REVIEWED THE CHART. I WENT OVER THE RISKS, ALTERNATIVES, AND BENEFITS ASSOCIATED WITH THIS PROCEDURE. THE PATIENT WOULD LIKE TO PROCEED AND GIVE CONSENT TO PERFORMED THE PROCEDURE. THE PATIENT DENIES UNEXPLAINABLE WEIGHT LOSS, FEVER, CHILLS, OR NEW CHANGES IN URINARY OR BOWEL CONTROL DESCRIPTION OF PROCEDURE THE PATIENT WAS BROUGHT TO THE PROCEDURE ROOM AND PLACED IN THE PRONE POSITION. THE LUMBOSACRAL AREA WAS CLEANED WITH CHLORAPREP SOLUTION AND DRAPED ASEPTICALLY. THE PROCEDURE WAS DONE UNDER STERILE CONDITIONS. I CHECKED LATERALITY AND THE LEVEL WHERE THE PROCEDURE WAS GOING TO BE PERFORMED WITH THE PATIENT AND THE SUPPORTING STAFF AT THE MOMENT OF THE TIME OUT IN THE PROCEDURE ROOM. UNDER FLUOROSCOPIC GUIDANCE, THE TARGET POINT WAS SELECTED AT THE RIGHT AND LEFT T11-T12, RIGHT AND LEFT T12-L1, AND RIGHT AND LEFT L1-L2 FACET JOINT. TARGET POINT WAS SELECTED AFTER LATERAL ROTATION AND TILT OF THE MAGNIFIER OF THE C-ARM. LIDOCAINE 0.5% WAS USED TO NUMB THE SKIN AND THE SUBCUTANEOUS TISSUE BELOW IT. SPINAL NEEDLES, 22-GAUGE, WERE ADVANCED UNDER FLUOROSCOPIC GUIDANCE AND FOLLOWING PATIENT FEEDBACK UNTIL THE TARGETS WERE TOUCHED. THE POSITION OF THE NEEDLES WAS VERIFIED WITH AP AND LATERAL VIEWS. AFTER PROPER POSITION OF THE NEEDLES WAS ACHIEVED, ISOVUE-M DYE 30% 0.1 ML WAS INJECTED SHOWING ADEQUATE SPREAD OF THE DYE. THEN A SOLUTION OF 1.9 ML OF BUPIVACAINE 0.125% OF KENALOG 10 MG WAS INJECTED AT EACH SITE. THERE WAS NO EVIDENCE OF BLOOD, PARESTHESIA OR CEREBROSPINAL FLUID DURING THE PROCEDURE. THE PATIENT WAS SENT TO THE RECOVERY ROOM. THE PATIENT WAS MOVING THE EXTREMITIES AND DOING WELL. THERE WAS NO COMPLICATION DURING THE PROCEDURE. FLUOROSCOPY TIME WAS 25 SECONDS POST PROCEDURE NOTE THE PATIENT WILL BE SEEN IN A FOLLOW UP IN THE NEXT FEW WEEKS. INSTRUCTIONS WERE GIVEN, QUESTIONS WERE ANSWERED, AND THE PATIENT EXPRESSED UNDERSTANDING AND AGREES WITH THE PLAN. I, GABINO BRAVO, DOCUMENTED THE ABOVE INFORMATION ACTING A SCRIBE FOR DR. MEDLEY. I HAVE REVIEWED THE ABOVE DOCUMENT, WRITTEN BY GABINO BRAVO SCRIBKimani AND I VERIFY THAT IT IS ACCURATE. DIAGNOSTIC IMAGING [facility] FACET BLOCK (PAIN)[id number] PROCEDURE CODES 74633 INJ PARAVERT F JNT C/T 1 LEV, MODIFIERS: 50 [id number] INJ PARAVERT F JNT C/T 2 LEV, MODIFIERS: 50 [id number] INJ PARAVERT F JNT L/S 1 LEV, MODIFIERS: 50 [id number] RADXPS IN END [id number] PXD DISPOSITION & COMMUNICATION FOLLOW UP 3 WEEKS ELECTRONICALLY SIGNED BY GARRETT MEDLEY MD, MD ON 01/15/2019 AT 03:19 PM EDT DISCLAIMER : THIS IS A VISIT SUMMARY EXTRACTED FROM THE [employer] CHART. IT IS NOT A COPY OF THE [employer] PROGRESS NOTE. MTDD
== END ==
LOC: M PAIN 08:30
PROVIDERS: ATTEND Anesthesiology
DX: M47.814 Spondylosis without myelopathy or radiculopathy, thoracic region (principal); M47.816 Spondylosis without myelopathy or radiculopathy, lumbar region; M47.815 Spondylosis without myelopathy or radiculopathy, thoracolumbar region
CPT/HCPCS: 64490; 64491; 64493; 71046; J3301; Q9967

== ENCOUNTER → 2019-01-13 | Outpatient (CLI) | payer MEDICARE, BC, OTHER ==
[~2019-01-13] MED LIST changes: -BUPIVACAINE HCL 0.25% 30 ML VIAL As Ordered ONE; -ISOVUE-M 300 61% 15ML VIAL (Q9967) As Ordered ONE; -LIDOCAINE 1% SDV INJ 30 ML VIAL As Ordered ONE; -TRIAMCINOLONE ACETONIDE SUSP 40 MG/ML VIAL (J3301) As Ordered ONE; -diazePAM 5 MG TAB As Ordered ONE; -oxyCODONE 5MG TAB As Ordered ONE
--- NOTE | 2019-02-04 01:46 | ECWPNPC ---
PATIENT NAME: TYE CLAUDIO : 1950 GENDER: MALE VISIT DATE: 01/13/2019 DISCHARGE DATE: 01/13/19 0954 VISIT LOCKED DATE TIME: PHYSICIAN: NUHA DE JESUS RESOURCE: NUHA DE JESUS REASON FOR APPOINTMENT 1. POST FB HISTORY OF PRESENT ILLNESS HISTORY OF PRESENT ILLNESS: HERE FOR POST PROCEDURE F/U.HAD BILAT T11/12,L1/2 THORACIC THERAPEUTIC FACET BLOCK ON 12/28/18.REPORTING >80% REDUCTION IN PAIN THAT CONTINUES TODAY.CHIEF AREA OF PAIN IS NECK AND LOW BACK.REVIEWED MRI'S AND DISCUSSED TREATMENT OPTIONS. PAIN THE PATIENT DESCRIBES THE PAIN... FALL RISK SCREENING: SCREENING :NO FALLS REPORTED IN THE LAST YEAR CURRENT MEDICATIONS TAKING ASPIRIN 81 81 MG TABLET CHEWABLE 1 TABLET ORALLY ONCE A DAY TAKING ATENOLOL 100 MG TABLET 1 TABLET ORALLY ONCE A DAY TAKING CITALOPRAM HYDROBROMIDE 20 MG TABLET 1 TABLET ORALLY ONCE A DAY TAKING FLONASE 50 MCG/DOSE INHALER 1 SPRAY IN EACH NOSTRIL NASALLY ONCE A DAY TAKING HYDROCHLOROTHIAZIDE 25 MG TABLET 1 TABLET IN THE MORNING ORALLY ONCE A DAY TAKING NOVOLOG FLEXPEN 100 UNIT/ML SOLUTION PEN-INJECTOR SLIDING SCALE SUBCUTANEOUS TAKING LANTUS SOLOSTAR 100 UNIT/ML SOLUTION 70 UNITS SUBCUTANEOUS DAILY TAKING LISINOPRIL 40 MG TABLET 1 TABLET ORALLY ONCE A DAY TAKING PANTOPRAZOLE SODIUM 40 MG TABLET DELAYED RELEASE 1 TABLET ORALLY ONCE A DAY TAKING CRESTOR 20 MG TABLET 1 TABLET ORALLY ONCE A DAY TAKING METFORMIN HCL 500 MG TABLET 1 TABLET WITH MEALS ORALLY TWICE A DAY TAKING REMICADE 100 MG SOLUTION RECONSTITUTED 900 MG INTRAVENOUS EVERY 4 WEEKS TAKING IBUPROFEN 600 MG TABLET 1 TABLET WITH FOOD OR MILK NEEDED ORALLY THREE TIMES A DAY TAKING ACETAMINOPHEN 325 MG CAPSULE 1 CAPSULE NEEDED ORALLY EVERY 4 HRS TAKING GABAPENTIN 300 MG CAPSULE 1-2 DIRECTED ORALLY 2 IN AM,2 IN AFTENOON,1 AT BEDTIME MEDICATION LIST REVIEWED AND RECONCILED WITH THE PATIENT PAST MEDICAL HISTORY HYPERLIPIDEMIA HYPERTENSION DIABETES MELLITUS TYPE 2 ACID REFLUX ARTHRITIS ANKYLOSIS SPONDYLITIS/ ARTHRITIS HEALTH SPEC - [place] BACK PAIN ALLERGIES LIPITOR: MUSCLE PAIN - SIDE EFFECTS SURGICAL HISTORY LEFT KNEE SURGERY RIGHT FOOT BUNIONECTOMY FAMILY HISTORY FATHER: , DIAGNOSED WITH DIABETES MOTHER: ALIVE, STROKE, OTHER 4 SON(S) , 1 DAUGHTER(S) - HEALTHY. MOTHER HAS HISTORY OF ARTHRITIS AND STROKE. SOCIAL HISTORY GENERAL: TOBACCO USE ARE YOU A:NONSMOKER PAIN CLINIC PFS, CLERGY, PUBLIC HEALTH REFERRALS PFS REFERRAL NEEDED?NO CLERGY REFERRAL NEEDED?NO PUBLIC HEALTH REFERRAL NEEDED?NO HAS THE PATIENT BEEN EDUCATED REGARDING HIS/HER PLAN OF CARE?YES HAS THE PATIENT BEEN EDUCATED REGARDING PAIN, THE RISK FOR PAIN, THE IMPORTANCE OF EFFECTIVE PAIN MANAGEMENT, AND THE PAIN ASSESSMENT PROCESS?YES LATEX QUESTIONNAIRE LATEX ALLERGY : HAVE YOU EVER DEVELOPED ANY TYPE OF REACTION AFTER HANDLING LATEX PRODUCTS SUCH RUBBER GLOVES, CONDOMS, DIAPHRAGMS, BALLOONS, SOCKS, OR UNDERWEAR?NO LATEX ALLERGY : HAVE YOU EVER DEVELOPED ANY TYPE OF REACTION DURING OR AFTER DENTAL APPOINTMENT, VAGINAL/RECTAL EXAMINATION, SURGICAL PROCEDURE, OR ANY OTHER EXPOSURE?NO LATEX RISK : HAVE YOU EVER HAD ANY DIFFICULTY BREATHING OR HIVES AFTER EATING OR HANDLING ANY FRUITS, OR VEGETABLES; SUCH KIWI, BANANAS, STONE FRUITS, OR CHESTNUTSNO LATEX RISK : DO YOU HAVE A PREVIOUS PERSONAL HISTORY OF MORE THAN NINE SURGERIES, SPINA BIFIDA, OR REPEATED CATHERTIZATIONS? NO LATEX RISK : ARE YOU FREQUENTLY EXPOSED TO LATEX PRODUCTS IN YOUR OCCUPATION?NO DATE ASKED : 12/28/2018 CAFFEINE CAFFEINE USE?YES COFFEE DAILY ADVANCE DIRECTIVE ADVANCE DIRECTIVE DISCUSSED WITH PATIENT:YES PATIENT DECLINED HCP INFORMATION, STATES THAT HE HAS THE INFORMATION AT HOME. [id number] PENTECOSTAL LANGUAGE LANGUAGES SPOKEN:SYRIAC DOMESTIC VIOLENCE DO YOU FEEL SAFE IN YOUR ENVIRONMENT?YES ALCOHOL SCREENING DID YOU HAVE A DRINK CONTAINING ALCOHOL IN THE PAST YEAR?YES HOW OFTEN DID YOU HAVE A DRINK CONTAINING ALCOHOL IN THE PAST YEAR?TWO TO FOUR TIMES A MONTH (2 POINTS) HOW MANY DRINKS DID YOU HAVE ON A TYPICAL DAY WHEN YOU WERE DRINKING IN THE PAST YEAR?1 OR 2 (0 POINTS) HOW OFTEN DID YOU HAVE SIX OR MORE DRINKS ON ONE OCCASION IN THE PAST YEAR?NEVER (0 POINTS) POINTS2 INTERPRETATIONNEGATIVE RECREATIONAL DRUG USE DRUG USE?NO LEARNING BARRIERS / SPECIAL NEEDS BARRIERS TO LEARNING?NO HEARING IMPAIRED?NO VISION IMPAIRED?YES :CORRECTIVE LENSES COGNITIVELY IMPAIRED?NO READINESS TO LEARN?YES LEARNING PREFERENCES?YES :DEMONSTRATION/VERBAL INSTRUCTION LEARNING CAPABILITIES PRESENT?YES EMOTIONAL BARRIERS?NO SPECIAL DEVICES?NO BLAST FURNACE CHECKER NEEDED?NO REVIEWED 02/23/18 0945 LAS06/01/18 0905 REVIEWED WITH PT. NAYELID WITH PT 06/23/18 1032 BV09/15/18 REVIEWED WITH PT. ADREVIEWED WITH PT 10/11/18 1130 LASREVIEWED WITH PATIENT 12/28/18 0924 11/17/18 REVIEWED WITH PT. HOSPITALIZATION/MAJOR DIAGNOSTIC PROCEDURE KNEE SURG REVIEW OF SYSTEMS REVIEWED BY: PROVIDER: NUHA CALVIN . CONSTITUTIONAL: ANY CHANGE IN YOUR MEDICAL CONDITION? NO . CHILLS NO . FEVER NO . INFECTION: DO YOU HAVE NEW INFECTIONS? NO . DO YOU HAVE HISTORY OF MRSA? NO . MUSCULOSKELETAL: ANY NEW PATTERNS OF PAIN OR NUMBNESS? YES, PT FELL OFF BRIDGE 4 FOOT HIGH INTO BLACKFEET INJURING NECK, PT DID NOT SEEK [place] . GASTROENTEROLOGY: ANY NEW CHANGE IN BOWEL CONTROL? NO . GENITOURINARY: ANY NEW CHANGE IN BLADDER CONTROL? NO . IS THERE A CHANCE YOU COULD BE ? NO . HEMATOLOGY/LYMPH: DO YOU TAKE ANY BLOOD THINNERS? (FOR EXAMPLE- COUMADIN, PLAVIX, AGGRENOX, PLATEL, PRADAXA, OR XARELTO) NO . WHEN WAS YOUR LAST DOSE? DATE: TIME: . NEUROLOGY: HAVE YOU FALLEN IN THE PAST 12 MONTHS? YES, FELL OFF BRIGDE 4 FOOT HIGH INJURING NECK, SLIPPED ON ICE . ANY NEW EXTREMITY NUMBNESS OR WEAKNESS? NO . CARDIOLOGY: DO YOU HAVE A PACEMAKER OR DEFIBRILLATOR? NO . RESPIRATORY: HAVE YOU BEEN SICK IN THE PAST WEEK? NO . FEVER NO . FLU LIKE SYMPTOMS? NO . COUGH NO . INTEGUMENTARY: DO YOU HAVE ANY RASHES OR OPEN SORES? NO . ALLERGIC/IMMUNO: ARE YOU ALLERGIC TO IV DYE? NO . ANY NEW ALLERGIES? NO . PSYCHIATRIC: DO YOU HAVE THOUGHTS OF HURTING YOURSELF OR SOMEONE ELSE? NO . ARE YOU ABUSED, NEGLECTED, OR IN AN UNSAFE ENVIRONMENT? NO . ENDOCRINOLOGY: ARE YOU DIABETIC? YES . OTHER: DO YOU NEED ANY PRESCRIPTIONS? NO . IF YES, PLEASE LIST: ____ . ANY NEW PROBLEMS WITH YOUR MEDICATIONS? NO . WHEN DID YOU LAST EAT? ____ . WHEN DID YOU LAST DRINK? ____ . WHAT DID YOU LAST DRINK? ____ . NAME OF PERSON DRIVING YOU HOME? ____ . DO YOU HAVE ANY OTHER QUESTIONS OR CONCERNS NO . VITAL SIGNS WT 250.6 LBS, HT 70 IN, BMI 35.95 INDEX, BP 121/63 MM HG, HR 81 /MIN, RR 18 /MIN, TEMP 97.1 F, OXYGEN SAT % 96%, NA INITIALS SC 09:14, REVIEWED BY: EM. EXAMINATION GENERAL EXAMINATION: GENERAL APPEARANCE:AWAKE,ALERT ,PLEAASANT . PSYCHAFFECT NORMAL . LUNGS:LUNG ANDERSON ARE CLEAR TO AUSCULTATION BILATERALLY. GOOD MOVEMENT OF AIR . HEART:S1, S2 IN A REGULAR RATE AND RHYTHM. NO SIGNIFICANT MURMURS, RUBS OR GALLOPS NOTED . MUSCULOSKELETAL:MUSCLE STRENGTH TESTING 5/5 BILATERAL UPPER/LOWER EXTREMITIES. LUMBAR SACRAL SPINEMILD TENDERNESS OVER BILAT. LUMBAR FACET REGION. NEUROLOGIC EXAM:NORMAL SENSATION TO LIGHT TOUCH LOWER EXTREMITIES. ASSESSMENTS SPONDYLOSIS OF LUMBAR REGION WITHOUT MYELOPATHY OR RADICULOPATHY - M47.816 (PRIMARY) CERVICALGIA - M54.2 TREATMENT SPONDYLOSIS OF LUMBAR REGION WITHOUT MYELOPATHY OR RADICULOPATHY MRI: C [id number] NOTES: BILAT. L4/5-L5/S1 THERAPEUTIC BLOCKHOLD REMICADE 5 WEEKS PRE PROCEDURE. PREVENTIVE MEDICINE PAIN CLINIC TEACHING: PROCEDURE TEACHING REVIEWED INFORMATION ON FACET BLOCK PROCEDURE WITH PATIENT. ALSO REVIEWED PRE-PROCEDURE INSTRUCTIONS. PATIENT VERBALIZED AN UNDERSTANDING. ANA TAPIA 01/13/2019 12:46:19 PM > . PROCEDURE CODES FA211 ESTABILISHED PATIENT [facility] FACILITY CHARGE DISPOSITION & COMMUNICATION FOLLOW UP POST (REASON: BILAT. L4/5-L5/S1 THERAPEUTIC BLOCK) ELECTRONICALLY SIGNED BY MARIXA FONTANA ON 02/01/2019 AT 04:48 PM EDT DISCLAIMER : THIS IS A VISIT SUMMARY EXTRACTED FROM THE [employer] CHART. IT IS NOT A COPY OF THE [employer] PROGRESS NOTE. MYNOR
== END ==
LOC: M PAIN 09:00
PROVIDERS: ATTEND Nurse Practitioner Family
DX: M47.816 Spondylosis without myelopathy or radiculopathy, lumbar region (principal); M54.2 Cervicalgia; E78.5 Hyperlipidemia, unspecified; I10 Essential (primary) hypertension; E11.9 Type 2 diabetes mellitus without complications; K21.9 Gastro-esophageal reflux disease without esophagitis; M19.90 Unspecified osteoarthritis, unspecified site; Z88.8 Allergy status to other drugs, medicaments and biological substances; Z79.82 Long term (current) use of aspirin; Z79.4 Long term (current) use of insulin; Z79.899 Other long term (current) 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

== ENCOUNTER → 2019-01-25 | Outpatient (CLI) | payer MEDICARE, BC, OTHER ==
--- NOTE | 2019-01-25 13:12 | REP ---
MR CERVICAL SPINE WITHOUT CONTRAST: HISTORY: Spondylosis. COMPARISON: 03/05/2014. A disc bulge and small right paracentral disc protrusion with associated osteophyte formation are present at the C3-4 level. There is moderate effacement of the thecal sac without spinal cord compression. Bilateral uncinate process and facet hypertrophy are present. These findings produce moderate narrowing of the C3 neural foramina. A disc bulge is present at the C4-5 level. There is moderate effacement of the thecal sac without spinal cord compression. Bilateral uncinate process hypertrophy is present. This produces moderate narrowing of the C4 neural foramina. A disc bugle with associated osteophyte formation is present at the C5-6 level. There is moderate effacement of the thecal sac without spinal cord compression. Bilateral uncinate process hypertrophy is present. This produces moderate narrowing of the C5 neural foramina. A disc bulge with associated osteophyte formation is present at the C6-7 level. There is minimal effacement of the thecal sac without spinal cord compression. Bilateral uncinate process hypertrophy is present. This produces moderate narrowing of the C6 neural foramina. There is no other disc bulge or herniation. The remaining neural foramina are patent. The spinal cord is normal signal intensity. The C4-5 through C5-6 intervertebral discs are decreased in height consistent with disc degeneration. Normal signal intensity is present in the cervical vertebral bodies. A 2.6 cm isointense mass is present in the right thyroid lobe. IMPRESSION: 1. There is cervical spondylosis at the C3-4 through C6-7 levels without spinal cord compression. The disc protrusion at the C3-4 level is a new finding. There has been progression of the foraminal narrowing at the C3-4 level and foraminal narrowing on the right at the C4-5 level. Electronically Signed by Rosalio Atkinson MD 01/25/2019 01:20 P
== END ==
LOC: M RAD 08:15
PROVIDERS: ATTEND Nurse Practitioner Family
DX: M50.221 Other cervical disc displacement at C4-C5 level (principal); M50.21 Other cervical disc displacement, high cervical region; M50.222 Other cervical disc displacement at C5-C6 level; M50.223 Other cervical disc displacement at C6-C7 level; M25.78 Osteophyte, vertebrae; M50.321 Other cervical disc degeneration at C4-C5 level; M50.322 Other cervical disc degeneration at C5-C6 level

== ENCOUNTER → 2019-02-21 | Outpatient (CLI) | payer MEDICARE, BC, OTHER ==
[~2019-02-21] MED LIST changes: +BUPIVACAINE HCL 0.25% 30 ML VIAL As Ordered ONE; +ISOVUE-M 300 61% 15ML VIAL (Q9967) As Ordered ONE; +LIDOCAINE 1% SDV INJ 30 ML VIAL As Ordered ONE; +TRIAMCINOLONE ACETONIDE SUSP 40 MG/ML VIAL (J3301) As Ordered ONE
--- NOTE | 2019-02-21 12:42 | REP ---
Partial lumbar spine series: Four views . History: Injection procedure for pain. 27 seconds of fluoroscopy time is reported. Findings: A sequence of four fluoroscopically obtained last image hold procedural spot radiographs of the lumbar spine document needle position and contrast injection associated with injection procedure. Electronically Signed by Sánchez Hathaway MD 02/21/2019 12:33 P
--- NOTE | 2019-03-06 00:46 | ECWPNPC ---
PATIENT NAME: TYE CLAUDIO : 1950 GENDER: MALE VISIT DATE: 02/21/2019 DISCHARGE DATE: 02/21/19 1146 VISIT LOCKED DATE TIME: PHYSICIAN: GARRETT MEDLEY MD RESOURCE: GARRETT MEDLEY MD REASON FOR APPOINTMENT 1. BILAT. L4/5-L5/S1 THERAPEUTIC BLOCK HISTORY OF PRESENT ILLNESS HISTORY OF PRESENT ILLNESS: PAIN THE PATIENT DESCRIBES THE PAIN... FALL RISK SCREENING: SCREENING :NO FALLS REPORTED IN THE LAST YEAR CURRENT MEDICATIONS TAKING ASPIRIN 81 81 MG TABLET CHEWABLE 1 TABLET ORALLY ONCE A DAY, NOTES: 02/20 10PM TAKING ATENOLOL 100 MG TABLET 1 TABLET ORALLY ONCE A DAY, NOTES: 02/20 10PM TAKING CITALOPRAM HYDROBROMIDE 20 MG TABLET 1 TABLET ORALLY ONCE A DAY, NOTES: 02/20 10PM TAKING FLONASE 50 MCG/DOSE INHALER 1 SPRAY IN EACH NOSTRIL NASALLY ONCE A DAY, NOTES: 02/20 10PM TAKING HYDROCHLOROTHIAZIDE 25 MG TABLET 1 TABLET IN THE MORNING ORALLY ONCE A DAY, NOTES: 02/20 8AM 1/2 TAB TAKING NOVOLOG FLEXPEN 100 UNIT/ML SOLUTION PEN-INJECTOR SLIDING SCALE SUBCUTANEOUS , NOTES: 02/20 6PM TAKING LANTUS SOLOSTAR 100 UNIT/ML SOLUTION 70 UNITS SUBCUTANEOUS DAILY, NOTES: 02/20 10PM TAKING LISINOPRIL 40 MG TABLET 1 TABLET ORALLY ONCE A DAY, NOTES: 02/20 10PM TAKING PANTOPRAZOLE SODIUM 40 MG TABLET DELAYED RELEASE 1 TABLET ORALLY ONCE A DAY, NOTES: 02/20 10PM TAKING CRESTOR 20 MG TABLET 1 TABLET ORALLY ONCE A DAY, NOTES: 02/20 10PM TAKING METFORMIN HCL 500 MG TABLET 1 TABLET WITH MEALS ORALLY TWICE A DAY, NOTES: 02/20 10PM TAKING REMICADE 100 MG SOLUTION RECONSTITUTED 900 MG INTRAVENOUS EVERY 4 WEEKS, NOTES: 5 WEEKS AGO TAKING IBUPROFEN 600 MG TABLET 1 TABLET WITH FOOD OR MILK NEEDED ORALLY THREE TIMES A DAY, NOTES: 1 WEEK TAKING ACETAMINOPHEN 325 MG CAPSULE 1 CAPSULE NEEDED ORALLY EVERY 4 HRS, NOTES: 02/20 10PM TAKING GABAPENTIN 300 MG CAPSULE 1-2 DIRECTED ORALLY 2 IN AM,2 IN AFTENOON,1 AT BEDTIME, NOTES: 02/21 7AM TAKING EMPAGLIFLOZIN 25 MG TABLET 1 TABLET ORALLY ONCE A DAY, NOTES: 02/20 8AM MEDICATION LIST REVIEWED AND RECONCILED WITH THE PATIENT PAST MEDICAL HISTORY HYPERLIPIDEMIA HYPERTENSION DIABETES MELLITUS TYPE 2 ACID REFLUX ARTHRITIS ANKYLOSIS SPONDYLITIS/ ARTHRITIS HEALTH SPEC - [place]AC[place] BACK PAIN ALLERGIES LIPITOR: MUSCLE PAIN - SIDE EFFECTS SURGICAL HISTORY LEFT KNEE SURGERY RIGHT FOOT BUNIONECTOMY FAMILY HISTORY FATHER: , DIAGNOSED WITH DIABETES MOTHER: ALIVE, STROKE, OTHER 4 SON(S) , 1 DAUGHTER(S) - HEALTHY. MOTHER HAS HISTORY OF ARTHRITIS AND STROKE. SOCIAL HISTORY GENERAL: TOBACCO USE ARE YOU A:NONSMOKER PAIN CLINIC PFS, CLERGY, PUBLIC HEALTH REFERRALS PFS REFERRAL NEEDED?NO CLERGY REFERRAL NEEDED?NO PUBLIC HEALTH REFERRAL NEEDED?NO WAS THE PROVIDER NOTIFIED OF ANY PERTINENT INFO?YES HAS THE PATIENT BEEN EDUCATED REGARDING HIS/HER PLAN OF CARE?YES HAS THE PATIENT BEEN EDUCATED REGARDING PAIN, THE RISK FOR PAIN, THE IMPORTANCE OF EFFECTIVE PAIN MANAGEMENT, AND THE PAIN ASSESSMENT PROCESS?YES LATEX QUESTIONNAIRE LATEX ALLERGY : HAVE YOU EVER DEVELOPED ANY TYPE OF REACTION AFTER HANDLING LATEX PRODUCTS SUCH RUBBER GLOVES, CONDOMS, DIAPHRAGMS, BALLOONS, SOCKS, OR UNDERWEAR?NO LATEX ALLERGY : HAVE YOU EVER DEVELOPED ANY TYPE OF REACTION DURING OR AFTER DENTAL APPOINTMENT, VAGINAL/RECTAL EXAMINATION, SURGICAL PROCEDURE, OR ANY OTHER EXPOSURE?NO LATEX RISK : HAVE YOU EVER HAD ANY DIFFICULTY BREATHING OR HIVES AFTER EATING OR HANDLING ANY FRUITS, OR VEGETABLES; SUCH KIWI, BANANAS, STONE FRUITS, OR CHESTNUTSNO LATEX RISK : DO YOU HAVE A PREVIOUS PERSONAL HISTORY OF MORE THAN NINE SURGERIES, SPINA BIFIDA, OR REPEATED CATHERTIZATIONS? NO LATEX RISK : ARE YOU FREQUENTLY EXPOSED TO LATEX PRODUCTS IN YOUR OCCUPATION?NO DATE ASKED : 02/21/2019 CAFFEINE CAFFEINE USE?YES COFFEE DAILY ADVANCE DIRECTIVE ADVANCE DIRECTIVE DISCUSSED WITH PATIENT:YES PATIENT DECLINED HCP INFORMATION, STATES THAT HE HAS THE INFORMATION AT HOME. ROMAN CATHOLIC [id number] RESTORATIONIST LANGUAGE LANGUAGES SPOKEN:KAZAKH DOMESTIC VIOLENCE DO YOU FEEL SAFE IN YOUR ENVIRONMENT?YES ALCOHOL SCREENING DID YOU HAVE A DRINK CONTAINING ALCOHOL IN THE PAST YEAR?YES HOW OFTEN DID YOU HAVE A DRINK CONTAINING ALCOHOL IN THE PAST YEAR?TWO TO FOUR TIMES A MONTH (2 POINTS) HOW MANY DRINKS DID YOU HAVE ON A TYPICAL DAY WHEN YOU WERE DRINKING IN THE PAST YEAR?1 OR 2 (0 POINTS) HOW OFTEN DID YOU HAVE SIX OR MORE DRINKS ON ONE OCCASION IN THE PAST YEAR?NEVER (0 POINTS) POINTS2 INTERPRETATIONNEGATIVE RECREATIONAL DRUG USE DRUG USE?NO LEARNING BARRIERS / SPECIAL NEEDS BARRIERS TO LEARNING?NO HEARING IMPAIRED?NO VISION IMPAIRED?YES :CORRECTIVE LENSES COGNITIVELY IMPAIRED?NO READINESS TO LEARN?YES LEARNING PREFERENCES?YES :DEMONSTRATION/VERBAL INSTRUCTION LEARNING CAPABILITIES PRESENT?YES EMOTIONAL BARRIERS?NO SPECIAL DEVICES?NO PRESSFITTER NEEDED?NO REVIEWED 02/23/18 0945 LAS06/01/18 0905 REVIEWED WITH PT. TIMIEWED WITH PT 06/23/18 1032 BV09/15/18 REVIEWED WITH PT. FLORINDA WITH PT 10/11/18 1130 LASREVIEWED WITH PATIENT 12/28/18 0924 JS11/17/18 REVIEWED WITH PT. HOSPITALIZATION/MAJOR DIAGNOSTIC PROCEDURE KNEE SURG REVIEW OF SYSTEMS REVIEWED BY: PROVIDER: . CONSTITUTIONAL: ANY CHANGE IN YOUR MEDICAL CONDITION? NO . CHILLS NO . FEVER NO . INFECTION: DO YOU HAVE NEW INFECTIONS? NO . DO YOU HAVE HISTORY OF MRSA? NO . MUSCULOSKELETAL: ANY NEW PATTERNS OF PAIN OR NUMBNESS? NO . GASTROENTEROLOGY: ANY NEW CHANGE IN BOWEL CONTROL? NO . GENITOURINARY: ANY NEW CHANGE IN BLADDER CONTROL? NO . IS THERE A CHANCE YOU COULD BE ? NO . HEMATOLOGY/LYMPH: DO YOU TAKE ANY BLOOD THINNERS? (FOR EXAMPLE- COUMADIN, PLAVIX, AGGRENOX, PLATEL, PRADAXA, OR XARELTO) NO . WHEN WAS YOUR LAST DOSE? DATE: TIME: . NEUROLOGY: HAVE YOU FALLEN IN THE PAST 12 MONTHS? YES, PT STATES THAT HE FELL WHILE AT HOME IN NOVEMBER, BACK IN [place] AND SLIPPED ON ICE, NO INJURY, NO REPORT TO ED. . ANY NEW EXTREMITY NUMBNESS OR WEAKNESS? NO . CARDIOLOGY: DO YOU HAVE A PACEMAKER OR DEFIBRILLATOR? NO . RESPIRATORY: HAVE YOU BEEN SICK IN THE PAST WEEK? NO . FEVER NO . FLU LIKE SYMPTOMS? NO . COUGH NO . INTEGUMENTARY: DO YOU HAVE ANY RASHES OR OPEN SORES? NO . ALLERGIC/IMMUNO: ARE YOU ALLERGIC TO IV DYE? NO . ANY NEW ALLERGIES? NO . PSYCHIATRIC: DO YOU HAVE THOUGHTS OF HURTING YOURSELF OR SOMEONE ELSE? NO . ARE YOU ABUSED, NEGLECTED, OR IN AN UNSAFE ENVIRONMENT? NO . ENDOCRINOLOGY: ARE YOU DIABETIC? YES, FSBS 169 . OTHER: DO YOU NEED ANY PRESCRIPTIONS? NO . IF YES, PLEASE LIST: ____ . ANY NEW PROBLEMS WITH YOUR MEDICATIONS? NO . WHEN DID YOU LAST EAT? ____01-20-19 10 PM . WHEN DID YOU LAST DRINK? ____01-20-19 10 PM . WHAT DID YOU LAST DRINK? ____WATER . NAME OF PERSON DRIVING YOU HOME? ____BEVERLY . DO YOU HAVE ANY OTHER QUESTIONS OR CONCERNS NO . VITAL SIGNS WT 254.8 LBS, HT 70 IN, BMI 36.56 INDEX, BP 95/63 MM HG, HR 70 /MIN, RR 18 /MIN, TEMP 97.7 F, OXYGEN SAT % 96%, SAFE IN ENV? (Y/N) YES, NA INITIALS ME 09:01, REVIEWED BY: KG. ASSESSMENTS SPONDYLOSIS OF LUMBAR REGION WITHOUT MYELOPATHY OR RADICULOPATHY - M47.816 (PRIMARY) SPONDYLOSIS OF LUMBOSACRAL REGION WITHOUT MYELOPATHY OR RADICULOPATHY - M47.817 TREATMENT SPONDYLOSIS OF LUMBAR REGION WITHOUT MYELOPATHY OR RADICULOPATHY SMC FACET BLOCK (PAIN)[id number] PROCEDURES PN LUMBAR FACET BLOCK THERAPEUTIC PRE PROCEDURE DIAGNOSIS LUMBAR SPONDYLOSIS, LUMBOSACRAL SPONDYLOSIS POST PROCEDURE DIAGNOSIS LUMBAR SPONDYLOSIS, LUMBOSACRAL SPONDYLOSIS PROCEDURE BILATERAL L4 - L5 AND BILATERAL L5 - S1 LUMBAR FACET THERAPEUTIC BLOCK SURGEON DR. GARRETT MEDLEY HOSEMAN NONE ANESTHESIA LOCAL PRE PROCEDURE NOTE THE PATIENT HAS A HISTORY OF CHRONIC LOW BACK PAIN. I EVALUATED THE PATIENT AND REVIEWED THE CHART. I WENT OVER THE RISKS, ALTERNATIVES, AND BENEFITS ASSOCIATED WITH THIS PROCEDURE. THE PATIENT WOULD LIKE TO PROCEED AND GIVE CONSENT TO PERFORMED THE PROCEDURE. THE PATIENT DENIES UNEXPLAINABLE WEIGHT LOSS, FEVER, CHILLS, OR NEW CHANGES IN URINARY OR BOWEL CONTROL. DESCRIPTION OF PROCEDURE THE PATIENT WAS BROUGHT TO THE PROCEDURE ROOM AND PLACED IN THE PRONE POSITION. THE LUMBOSACRAL AREA WAS CLEANED WITH CHLORAPREP SOLUTION AND DRAPED ASEPTICALLY. THE PROCEDURE WAS DONE UNDER STERILE CONDITIONS. I CHECKED LATERALITY AND THE LEVEL WHERE THE PROCEDURE WAS GOING TO BE PERFORMED WITH THE PATIENT AND THE SUPPORTING STAFF AT THE MOMENT OF THE TIME OUT IN THE PROCEDURE ROOM. UNDER FLUOROSCOPIC GUIDANCE, THE TARGET POINT WAS SELECTED AT THE RIGHT AND LEFT L4-L5 AND RIGHT AND LEFT L5-S1 FACET JOINTS. TARGET POINT WAS SELECTED AFTER LATERAL ROTATION AND TILT OF THE MAGNIFIER OF THE C-ARM. LIDOCAINE 0.5% WAS USED TO NUMB THE SKIN AND THE SUBCUTANEOUS TISSUE BELOW IT. SPINAL NEEDLES, 22-GAUGE, WERE ADVANCED UNDER FLUOROSCOPIC GUIDANCE AND FOLLOWING PATIENT FEEDBACK UNTIL THE TARGETS WERE TOUCHED. THE POSITION OF THE NEEDLES WAS VERIFIED WITH AP AND LATERAL VIEWS. AFTER PROPER POSITION OF THE NEEDLES WAS ACHIEVED, ISOVUE-M DYE 30% 0.1 ML WAS INJECTED SHOWING ADEQUATE SPREAD OF THE DYE. THEN A SOLUTION OF 1.9 ML OF BUPIVACAINE 0.125% OF KENALOG 10 MG WAS INJECTED AT EACH SITE. THERE WAS NO EVIDENCE OF BLOOD, PARESTHESIA OR CEREBROSPINAL FLUID DURING THE PROCEDURE. THE PATIENT WAS SENT TO THE RECOVERY ROOM. THE PATIENT WAS MOVING THE EXTREMITIES AND DOING WELL. THERE WAS NO COMPLICATION DURING THE PROCEDURE. FLUOROSCOPY TIME WAS 27 SECONDS POST PROCEDURE NOTE THE PATIENT WILL BE SEEN IN A FOLLOW UP IN THE NEXT FEW WEEKS. INSTRUCTIONS WERE GIVEN, QUESTIONS WERE ANSWERED, AND THE PATIENT EXPRESSED UNDERSTANDING AND AGREES WITH THE PLAN. I, GABINO BRAVO, DOCUMENTED THE ABOVE INFORMATION ACTING A SCRIBE FOR DR. MEDLEY. I HAVE REVIEWED THE ABOVE DOCUMENT, WRITTEN BY GABINO BRAVO SCRIBKimani AND I VERIFY THAT IT IS ACCURATE. PROCEDURE CODES 70075 INJ PARAVERT F JNT L/S 1 LEV, MODIFIERS: 50 12018 INJ PARAVERT F JNT L/S 2 LEV, MODIFIERS: 50 6045F RADXPS IN END [id number] PXD DISPOSITION & COMMUNICATION FOLLOW UP 3 WEEKS ELECTRONICALLY SIGNED BY GARRETT MEDLEY MD, MD ON 03/05/2019 AT 07:18 PM EDT DISCLAIMER : THIS IS A VISIT SUMMARY EXTRACTED FROM THE [email or web address] CHART. IT IS NOT A COPY OF THE [employer] PROGRESS NOTE. MTDD
== END ==
LOC: M PAIN 08:45
PROVIDERS: ATTEND Anesthesiology
DX: M47.816 Spondylosis without myelopathy or radiculopathy, lumbar region (principal); M47.817 Spondylosis without myelopathy or radiculopathy, lumbosacral region; E78.5 Hyperlipidemia, unspecified; I10 Essential (primary) hypertension; E11.9 Type 2 diabetes mellitus without complications; K21.9 Gastro-esophageal reflux disease without esophagitis; M45.9 Ankylosing spondylitis of unspecified sites in spine; Z79.82 Long term (current) use of aspirin; Z79.4 Long term (current) use of insulin; Z79.899 Other long term (current) 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; Z88.8 Allergy status to other drugs, medicaments and biological substances
CPT/HCPCS: 64493; 64494; J3301; Q9967

== ENCOUNTER → 2019-05-03 | Outpatient (CLI) | payer MEDICARE, BC, OTHER ==
[~2019-05-03] MED LIST changes: -BUPIVACAINE HCL 0.25% 30 ML VIAL As Ordered ONE; -ISOVUE-M 300 61% 15ML VIAL (Q9967) As Ordered ONE; -LIDOCAINE 1% SDV INJ 30 ML VIAL As Ordered ONE; -TRIAMCINOLONE ACETONIDE SUSP 40 MG/ML VIAL (J3301) As Ordered ONE
--- NOTE | 2019-05-19 00:41 | ECWPNPC ---
PATIENT NAME: TYE CLAUDIO : 1950 GENDER: MALE VISIT DATE: 05/03/2019 DISCHARGE DATE: 05/03/19 1126 VISIT LOCKED DATE TIME: PHYSICIAN: NUHA DE JESUS RESOURCE: NUHA DE JESUS REASON FOR APPOINTMENT 1. POST PROC HISTORY OF PRESENT ILLNESS HISTORY OF PRESENT ILLNESS: HERE FOR POST PROCEDURE F/U.HAD BILAT. L4/5-L5/S1 THERAPEUTIC BLOCK ON 02/21/19.REPORTING SIGNIFICANT REDUCTION IN PAIN UNTIL APPROXIMATLEY 1 WEEK AGO.DISCUSSED RADIFREQUENCY AND DIAGNOSTIC TESTING. PAIN THE PATIENT DESCRIBES THE PAIN... FALL RISK SCREENING: SCREENING :NO FALLS REPORTED IN THE LAST YEAR CURRENT MEDICATIONS TAKING ASPIRIN 81 81 MG TABLET CHEWABLE 1 TABLET ORALLY ONCE A DAY, NOTES: 02/20 10PM TAKING ATENOLOL 100 MG TABLET 1 TABLET ORALLY ONCE A DAY, NOTES: 02/20 10PM TAKING CITALOPRAM HYDROBROMIDE 20 MG TABLET 1 TABLET ORALLY ONCE A DAY, NOTES: 02/20 10PM TAKING FLONASE 50 MCG/DOSE INHALER 1 SPRAY IN EACH NOSTRIL NASALLY ONCE A DAY, NOTES: 02/20 10PM TAKING HYDROCHLOROTHIAZIDE 25 MG TABLET 1 TABLET IN THE MORNING ORALLY ONCE A DAY, NOTES: 02/20 8AM 1/2 TAB TAKING NOVOLOG FLEXPEN 100 UNIT/ML SOLUTION PEN-INJECTOR SLIDING SCALE SUBCUTANEOUS , NOTES: 02/20 6PM TAKING LANTUS SOLOSTAR 100 UNIT/ML SOLUTION 70 UNITS SUBCUTANEOUS DAILY TAKING LISINOPRIL 40 MG TABLET 1 TABLET ORALLY ONCE A DAY TAKING PANTOPRAZOLE SODIUM 40 MG TABLET DELAYED RELEASE 1 TABLET ORALLY ONCE A DAY TAKING CRESTOR 20 MG TABLET 1 TABLET ORALLY ONCE A DAY TAKING METFORMIN HCL 500 MG TABLET 1 TABLET WITH MEALS ORALLY TWICE A DAY TAKING REMICADE 100 MG SOLUTION RECONSTITUTED 900 MG INTRAVENOUS EVERY 4 WEEKS TAKING IBUPROFEN 600 MG TABLET 1 TABLET WITH FOOD OR MILK NEEDED ORALLY THREE TIMES A DAY TAKING ACETAMINOPHEN 325 MG CAPSULE 1 CAPSULE NEEDED ORALLY EVERY 4 HRS TAKING GABAPENTIN 300 MG CAPSULE 1-2 DIRECTED ORALLY 2 IN AM,2 IN AFTENOON,1 AT BEDTIME TAKING EMPAGLIFLOZIN 25 MG TABLET 1 TABLET ORALLY ONCE A DAY MEDICATION LIST REVIEWED AND RECONCILED WITH THE PATIENT PAST MEDICAL HISTORY HYPERLIPIDEMIA HYPERTENSION DIABETES MELLITUS TYPE 2 ACID REFLUX ARTHRITIS ANKYLOSIS SPONDYLITIS/ ARTHRITIS HEALTH SPEC - [place] BACK PAIN ALLERGIES LIPITOR: MUSCLE PAIN - SIDE EFFECTS SURGICAL HISTORY LEFT KNEE SURGERY RIGHT FOOT BUNIONECTOMY FAMILY HISTORY FATHER: , DIAGNOSED WITH DIABETES MOTHER: ALIVE, UNSPECIFIED CEREBRAL ARTERY OCCLUSION WITH CEREBRAL INFARCTION, OTHER SPECIFIED CONDITIONS INFLUENCING HEALTH STATUS 4 SON(S) , 1 DAUGHTER(S) - HEALTHY. MOTHER HAS HISTORY OF ARTHRITIS AND STROKE. SOCIAL HISTORY GENERAL: TOBACCO USE ARE YOU A:NONSMOKER PAIN CLINIC PFS, CLERGY, PUBLIC HEALTH REFERRALS PFS REFERRAL NEEDED?NO CLERGY REFERRAL NEEDED?NO PUBLIC HEALTH REFERRAL NEEDED?NO WAS THE PROVIDER NOTIFIED OF ANY PERTINENT INFO?YES HAS THE PATIENT BEEN EDUCATED REGARDING HIS/HER PLAN OF CARE?YES HAS THE PATIENT BEEN EDUCATED REGARDING PAIN, THE RISK FOR PAIN, THE IMPORTANCE OF EFFECTIVE PAIN MANAGEMENT, AND THE PAIN ASSESSMENT PROCESS?YES LATEX QUESTIONNAIRE LATEX ALLERGY : HAVE YOU EVER DEVELOPED ANY TYPE OF REACTION AFTER HANDLING LATEX PRODUCTS SUCH RUBBER GLOVES, CONDOMS, DIAPHRAGMS, BALLOONS, SOCKS, OR UNDERWEAR?NO LATEX ALLERGY : HAVE YOU EVER DEVELOPED ANY TYPE OF REACTION DURING OR AFTER DENTAL APPOINTMENT, VAGINAL/RECTAL EXAMINATION, SURGICAL PROCEDURE, OR ANY OTHER EXPOSURE?NO DATE ASKED : 02/21/2019 LATEX RISK : HAVE YOU EVER HAD ANY DIFFICULTY BREATHING OR HIVES AFTER EATING OR HANDLING ANY FRUITS, OR VEGETABLES; SUCH KIWI, BANANAS, STONE FRUITS, OR CHESTNUTSNO LATEX RISK : DO YOU HAVE A PREVIOUS PERSONAL HISTORY OF MORE THAN NINE SURGERIES, SPINA BIFIDA, OR REPEATED CATHERIZATIONS? NO LATEX RISK : ARE YOU FREQUENTLY EXPOSED TO LATEX PRODUCTS IN YOUR OCCUPATION?NO CAFFEINE CAFFEINE USE?YES COFFEE DAILY ADVANCE DIRECTIVE ADVANCE DIRECTIVE DISCUSSED WITH PATIENT:YES PATIENT DECLINED HCP INFORMATION, STATES THAT HE HAS THE INFORMATION AT HOME. CAODAISM [id number] GNOSTICIST LANGUAGE LANGUAGES SPOKEN:YI DOMESTIC VIOLENCE DO YOU FEEL SAFE IN YOUR ENVIRONMENT?YES ALCOHOL SCREENING DID YOU HAVE A DRINK CONTAINING ALCOHOL IN THE PAST YEAR?YES HOW OFTEN DID YOU HAVE SIX OR MORE DRINKS ON ONE OCCASION IN THE PAST YEAR?NEVER (0 POINTS) HOW MANY DRINKS DID YOU HAVE ON A TYPICAL DAY WHEN YOU WERE DRINKING IN THE PAST YEAR?1 OR 2 (0 POINTS) HOW OFTEN DID YOU HAVE A DRINK CONTAINING ALCOHOL IN THE PAST YEAR?TWO TO FOUR TIMES A MONTH (2 POINTS) POINTS2 INTERPRETATIONNEGATIVE RECREATIONAL DRUG USE DRUG USE?NO LEARNING BARRIERS / SPECIAL NEEDS BARRIERS TO LEARNING?NO HEARING IMPAIRED?NO VISION IMPAIRED?YES COGNITIVELY IMPAIRED?NO :CORRECTIVE LENSES READINESS TO LEARN?YES LEARNING PREFERENCES?YES :DEMONSTRATION/VERBAL INSTRUCTION LEARNING CAPABILITIES PRESENT?YES EMOTIONAL BARRIERS?NO SPECIAL DEVICES?NO DETECTIVE AND INTELLIGENCE ANALYST NEEDED?NO REVIEWED 02/23/18 0945 LAS06/01/18 0905 REVIEWED WITH PT. FLORINDA WITH PT 06/23/18 1032 BV09/15/18 REVIEWED WITH PT. FLORINDA WITH PT 10/11/18 1130 LASREVIEWED WITH PATIENT 12/28/18 0924 JS11/17/18 REVIEWED WITH PT. HOSPITALIZATION/MAJOR DIAGNOSTIC PROCEDURE KNEE SURG REVIEW OF SYSTEMS REVIEWED BY: PROVIDER: NUHA CALVIN . CONSTITUTIONAL: ANY CHANGE IN YOUR MEDICAL CONDITION? NO . CHILLS NO . FEVER NO . INFECTION: DO YOU HAVE NEW INFECTIONS? NO . DO YOU HAVE HISTORY OF MRSA? NO . MUSCULOSKELETAL: ANY NEW PATTERNS OF PAIN OR NUMBNESS? YES INCREASEDMIDDLE BACK . GASTROENTEROLOGY: ANY NEW CHANGE IN BOWEL CONTROL? NO . GENITOURINARY: ANY NEW CHANGE IN BLADDER CONTROL? NO . IS THERE A CHANCE YOU COULD BE ? NO . HEMATOLOGY/LYMPH: DO YOU TAKE ANY BLOOD THINNERS? (FOR EXAMPLE- COUMADIN, PLAVIX, AGGRENOX, PLATEL, PRADAXA, OR XARELTO) NO . WHEN WAS YOUR LAST DOSE? DATE: TIME: . NEUROLOGY: HAVE YOU FALLEN IN THE PAST 12 MONTHS? NO . ANY NEW EXTREMITY NUMBNESS OR WEAKNESS? NO . CARDIOLOGY: DO YOU HAVE A PACEMAKER OR DEFIBRILLATOR? NO . RESPIRATORY: HAVE YOU BEEN SICK IN THE PAST WEEK? NO . FEVER NO . FLU LIKE SYMPTOMS? NO . COUGH NO . INTEGUMENTARY: DO YOU HAVE ANY RASHES OR OPEN SORES? NO . ALLERGIC/IMMUNO: ARE YOU ALLERGIC TO IV DYE? NO . ANY NEW ALLERGIES? NO . PSYCHIATRIC: DO YOU HAVE THOUGHTS OF HURTING YOURSELF OR SOMEONE ELSE? NO . ARE YOU ABUSED, NEGLECTED, OR IN AN UNSAFE ENVIRONMENT? NO . ENDOCRINOLOGY: ARE YOU DIABETIC? NO . OTHER: DO YOU NEED ANY PRESCRIPTIONS? NO . IF YES, PLEASE LIST: ____ . ANY NEW PROBLEMS WITH YOUR MEDICATIONS? NO . WHEN DID YOU LAST EAT? ____ . WHEN DID YOU LAST DRINK? ____ . WHAT DID YOU LAST DRINK? ____ . NAME OF PERSON DRIVING YOU HOME? ____ . DO YOU HAVE ANY OTHER QUESTIONS OR CONCERNS NO . VITAL SIGNS WT 256.6 LBS, HT 70 IN, BMI 36.81 INDEX, BP 123/67 MM HG, HR 76 /MIN, RR 18 /MIN, TEMP 96.0 F, OXYGEN SAT % 95%, SAFE IN ENV? (Y/N) YES, NA INITIALS AW 1043, REVIEWED BY: KG. EXAMINATION GENERAL EXAMINATION: GENERAL AWAKE,ALERT ,PLEAASANT . PSYCH AFFECT NORMAL . LUNGS: LUNG ANDERSON ARE CLEAR TO AUSCULTATION BILATERALLY. GOOD MOVEMENT OF AIR . HEART: S1, S2 IN A REGULAR RATE AND RHYTHM. NO SIGNIFICANT MURMURS, RUBS OR GALLOPS NOTED . LUMBAR SACRAL SPINE TENDER OVER BILAT.L4/5-L5/S1 FACETS W FACET LOADING. DIAGNOSTIC TESTS REVIEWED MRI L/S SPINE 10/31/18-REVIEWED. ASSESSMENTS SPONDYLOSIS OF LUMBOSACRAL REGION WITHOUT MYELOPATHY OR RADICULOPATHY - M47.817 (PRIMARY) TREATMENT SPONDYLOSIS OF LUMBOSACRAL REGION WITHOUT MYELOPATHY OR RADICULOPATHY INCREASE GABAPENTIN TABLET, 600 MG, 1 TABLET, ORALLY, Q8H TID, 30 DAY(S), 90, REFILLS 2 START TRAMADOL HCL TABLET, 50 MG, 1 TABLET NEEDED, ORALLY, Q8H PRN SEVERE PAIN MDD3, 30 DAYS, 45, REFILLS 1 NOTES: BILAT L4/5-L5/S1 LUMBAR DIAGNOSTIC FACET BLOCK, ISTOP REGISTRY REVIEWED AND DEMONSTRATES COMPLLIANCE. , RISKS AND BENEFITS OF NARCOTIC/OPIOD MEDICATIONS WERE REVIEWED WITH PATIENT - THIS INCLUDES BUT IS NOT LIMITED TO RISK OF DEPENDANCE/DEVELOPMENT OF ADDICTION, MOOD DISTURBANCE AND DEPRESSION, OSTEOPOROSIS, HORMONAL AND LABIDAL CHANGES, RESPIRATORY DEPRESSION AND . PATIENT IS ADVISED NOT TO DRIVE OR DRINK ALCOHOL WHILE ON THESE MEDICATIONS. PROCEDURE CODES FA211 ESTABILISHED PATIENT [facility] CHARGE DISPOSITION & COMMUNICATION FOLLOW UP POST (REASON: BILAT L4/5-L5/S1 LUMBAR DIAGNOSTIC FACET BLOCK) ELECTRONICALLY SIGNED BY MARIXA FONTANA ON 05/18/2019 AT 08:39 AM EDT DISCLAIMER : THIS IS A VISIT SUMMARY EXTRACTED FROM THE [employer] CHART. IT IS NOT A COPY OF THE [employer] PROGRESS NOTE. MYLAD
== END ==
LOC: M PAIN 10:30
PROVIDERS: ATTEND Nurse Practitioner Family
DX: M47.817 Spondylosis without myelopathy or radiculopathy, lumbosacral region (principal); E78.5 Hyperlipidemia, unspecified; I10 Essential (primary) hypertension; E11.9 Type 2 diabetes mellitus without complications; K21.9 Gastro-esophageal reflux disease without esophagitis; M19.90 Unspecified osteoarthritis, unspecified site; Z88.8 Allergy status to other drugs, medicaments and biological substances; Z79.82 Long term (current) use of aspirin; Z79.4 Long term (current) use of insulin; Z79.899 Other long term (current) 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

== ENCOUNTER → 2019-05-23 | Outpatient (CLI) | payer MEDICARE, BC, OTHER ==
[~2019-05-23] MED LIST changes: +BUPIVACAINE HCL 0.25% 30 ML VIAL As Ordered ONE; +ISOVUE-M 300 61% 15ML VIAL (Q9967) As Ordered ONE; +LIDOCAINE 1% SDV INJ 30 ML VIAL As Ordered ONE
--- NOTE | 2019-05-23 18:48 | REP ---
C-ARM VIEWS LUMBAR SPINE: CLINICAL HISTORY: Pain. Two C-ARM views of the lumbar spine were performed during lumbar facet injection by Dr. Medeiros. [place] are seen along the lower lumbar facets bilaterally. 39 seconds of fluoroscopy time was utilized. Electronically Signed by Ashu Nava MD 05/25/2019 04:33 P
--- NOTE | 2019-06-03 01:18 | ECWPNPC ---
PATIENT NAME: TYE CLAUDIO : 1950 GENDER: MALE VISIT DATE: 05/23/2019 DISCHARGE DATE: 05/23/19 1009 VISIT LOCKED DATE TIME: PHYSICIAN: GARRETT MEDLEY MD RESOURCE: GARRETT MEDLEY MD REASON FOR APPOINTMENT 1. BILAT L4/5-L5/S1 LUMBAR DIAGNOSTIC FACET BLOCK #1 HISTORY OF PRESENT ILLNESS HISTORY OF PRESENT ILLNESS: PAIN THE PATIENT DESCRIBES THE PAIN... FALL RISK SCREENING: SCREENING :NO FALLS REPORTED IN THE LAST YEAR CURRENT MEDICATIONS TAKING ASPIRIN 81 81 MG TABLET CHEWABLE 1 TABLET ORALLY ONCE A DAY TAKING ATENOLOL 100 MG TABLET 1 TABLET ORALLY ONCE A DAY TAKING CITALOPRAM HYDROBROMIDE 20 MG TABLET 1 TABLET ORALLY ONCE A DAY TAKING FLONASE 50 MCG/DOSE INHALER 1 SPRAY IN EACH NOSTRIL NASALLY ONCE A DAILY-TAKES NEEDED TAKING HYDROCHLOROTHIAZIDE 25 MG TABLET 1 TABLET IN THE MORNING ORALLY ONCE A DAY TAKING NOVOLOG FLEXPEN 100 UNIT/ML SOLUTION PEN-INJECTOR SLIDING SCALE SUBCUTANEOUS , NOTES: 05/22 1800 20 UNITS TAKING LANTUS SOLOSTAR 100 UNIT/ML SOLUTION 60 UNITS SUBCUTANEOUS DAILY, NOTES: 05/22 2200 TAKING LISINOPRIL 40 MG TABLET 1 TABLET ORALLY ONCE A DAY TAKING PANTOPRAZOLE SODIUM 40 MG TABLET DELAYED RELEASE 1 TABLET ORALLY ONCE A DAY TAKING CRESTOR 20 MG TABLET 1 TABLET ORALLY ONCE A DAY TAKING METFORMIN HCL 500 MG TABLET 1 TABLET WITH MEALS ORALLY TWICE A DAY, NOTES: 05/22 2200 TAKING REMICADE 100 MG SOLUTION RECONSTITUTED 900 MG INTRAVENOUS EVERY 4 WEEKS, NOTES: 04/22 TAKING IBUPROFEN 600 MG TABLET 1 TABLET WITH FOOD OR MILK NEEDED ORALLY THREE TIMES A DAY, NOTES: NONE TAKING ACETAMINOPHEN 325 MG CAPSULE 1 CAPSULE NEEDED ORALLY EVERY 4 HRS, NOTES: 05/22 2200 TAKING EMPAGLIFLOZIN 25 MG TABLET 1 TABLET ORALLY ONCE A DAY, NOTES: 05/22 2200 TAKING GABAPENTIN 600 MG TABLET 1 TABLET ORALLY Q8H TID, NOTES: 05/22 2200 TAKING TRAMADOL HCL 50 MG TABLET 1 TABLET NEEDED ORALLY Q8H PRN SEVERE PAIN MDD3, NOTES: NONE RECENT MEDICATION LIST REVIEWED AND RECONCILED WITH THE PATIENT PAST MEDICAL HISTORY HYPERLIPIDEMIA HYPERTENSION DIABETES MELLITUS TYPE 2 ACID REFLUX ARTHRITIS ANKYLOSIS SPONDYLITIS/ ARTHRITIS HEALTH SPEC - SYRACUSE BACK PAIN ALLERGIES LIPITOR: MUSCLE PAIN - SIDE EFFECTS SURGICAL HISTORY LEFT KNEE SURGERY RIGHT FOOT BUNIONECTOMY FAMILY HISTORY FATHER: , DIAGNOSED WITH DIABETES MOTHER: ALIVE, UNSPECIFIED CEREBRAL ARTERY OCCLUSION WITH CEREBRAL INFARCTION, OTHER SPECIFIED CONDITIONS INFLUENCING HEALTH STATUS 4 SON(S) , 1 DAUGHTER(S) - HEALTHY. MOTHER HAS HISTORY OF ARTHRITIS AND STROKE. SOCIAL HISTORY GENERAL: TOBACCO USE ARE YOU A:NONSMOKER PAIN CLINIC PFS, CLERGY, PUBLIC HEALTH REFERRALS PFS REFERRAL NEEDED?NO CLERGY REFERRAL NEEDED?NO PUBLIC HEALTH REFERRAL NEEDED?NO WAS THE PROVIDER NOTIFIED OF ANY PERTINENT INFO? N/A HAS THE PATIENT BEEN EDUCATED REGARDING HIS/HER PLAN OF CARE?YES HAS THE PATIENT BEEN EDUCATED REGARDING PAIN, THE RISK FOR PAIN, THE IMPORTANCE OF EFFECTIVE PAIN MANAGEMENT, AND THE PAIN ASSESSMENT PROCESS?YES LATEX QUESTIONNAIRE LATEX ALLERGY : HAVE YOU EVER DEVELOPED ANY TYPE OF REACTION AFTER HANDLING LATEX PRODUCTS SUCH RUBBER GLOVES, CONDOMS, DIAPHRAGMS, BALLOONS, SOCKS, OR UNDERWEAR?NO LATEX ALLERGY : HAVE YOU EVER DEVELOPED ANY TYPE OF REACTION DURING OR AFTER DENTAL APPOINTMENT, VAGINAL/RECTAL EXAMINATION, SURGICAL PROCEDURE, OR ANY OTHER EXPOSURE?NO LATEX RISK : HAVE YOU EVER HAD ANY DIFFICULTY BREATHING OR HIVES AFTER EATING OR HANDLING ANY FRUITS, OR VEGETABLES; SUCH KIWI, BANANAS, STONE FRUITS, OR CHESTNUTSNO LATEX RISK : DO YOU HAVE A PREVIOUS PERSONAL HISTORY OF MORE THAN NINE SURGERIES, SPINA BIFIDA, OR REPEATED CATHERIZATIONS? NO LATEX RISK : ARE YOU FREQUENTLY EXPOSED TO LATEX PRODUCTS IN YOUR OCCUPATION?NO DATE ASKED : 05/23/2019 CAFFEINE CAFFEINE USE?YES COFFEE DAILY ADVANCE DIRECTIVE ADVANCE DIRECTIVE DISCUSSED WITH PATIENT:YES 05/23/19 PT DOES NOT HAVE ANY ADVANCED DIRECTIVES AND HE DECLINES INFORMATION ON HCP AT THIS TIME, STATES THAT HE HAS THE INFORMATION AT HOME. ASSISTANCE OFFERED IN COMPLETING HCP IF NEEDED. AD LATTER-DAY [id number] LANGUAGE LANGUAGES SPOKEN:KINYARWANDA DOMESTIC VIOLENCE DO YOU FEEL SAFE IN YOUR ENVIRONMENT?YES ALCOHOL SCREENING DID YOU HAVE A DRINK CONTAINING ALCOHOL IN THE PAST YEAR?YES HOW OFTEN DID YOU HAVE SIX OR MORE DRINKS ON ONE OCCASION IN THE PAST YEAR?NEVER (0 POINTS) HOW MANY DRINKS DID YOU HAVE ON A TYPICAL DAY WHEN YOU WERE DRINKING IN THE PAST YEAR?1 OR 2 (0 POINTS) HOW OFTEN DID YOU HAVE A DRINK CONTAINING ALCOHOL IN THE PAST YEAR?TWO TO FOUR TIMES A MONTH (2 POINTS) POINTS2 INTERPRETATIONNEGATIVE RECREATIONAL DRUG USE DRUG USE?NO LEARNING BARRIERS / SPECIAL NEEDS BARRIERS TO LEARNING?NO HEARING IMPAIRED?NO VISION IMPAIRED?YES :CORRECTIVE LENSES COGNITIVELY IMPAIRED?NO READINESS TO LEARN?YES LEARNING PREFERENCES?YES :DEMONSTRATION/VERBAL INSTRUCTION LEARNING CAPABILITIES PRESENT?YES EMOTIONAL BARRIERS?NO SPECIAL DEVICES?NO INSIGHT LEADER NEEDED?NO REVIEWED 02/23/18 0945 LAS06/01/18 0905 REVIEWED WITH PT. TIMIEWED WITH PT 06/23/18 1032 BV09/15/18 REVIEWED WITH PT. NAYELID WITH PT 10/11/18 1130 LASREVIEWED WITH PATIENT 12/28/18 0924 JS11/17/18 REVIEWED WITH PT. HOSPITALIZATION/MAJOR DIAGNOSTIC PROCEDURE KNEE SURG REVIEW OF SYSTEMS REVIEWED BY: PROVIDER: . CONSTITUTIONAL: ANY CHANGE IN YOUR MEDICAL CONDITION? NO . CHILLS NO . FEVER NO . INFECTION: DO YOU HAVE NEW INFECTIONS? NO . DO YOU HAVE HISTORY OF MRSA? NO . MUSCULOSKELETAL: ANY NEW PATTERNS OF PAIN OR NUMBNESS? NO . GASTROENTEROLOGY: ANY NEW CHANGE IN BOWEL CONTROL? NO . GENITOURINARY: ANY NEW CHANGE IN BLADDER CONTROL? NO . IS THERE A CHANCE YOU COULD BE ? NO . HEMATOLOGY/LYMPH: DO YOU TAKE ANY BLOOD THINNERS? (FOR EXAMPLE- COUMADIN, PLAVIX, AGGRENOX, PLATEL, PRADAXA, OR XARELTO) NO . WHEN WAS YOUR LAST DOSE? DATE: TIME: . NEUROLOGY: HAVE YOU FALLEN IN THE PAST 12 MONTHS? NO . ANY NEW EXTREMITY NUMBNESS OR WEAKNESS? NO . CARDIOLOGY: DO YOU HAVE A PACEMAKER OR DEFIBRILLATOR? NO . RESPIRATORY: HAVE YOU BEEN SICK IN THE PAST WEEK? NO . FEVER NO . FLU LIKE SYMPTOMS? NO . COUGH NO . INTEGUMENTARY: DO YOU HAVE ANY RASHES OR OPEN SORES? NO . ALLERGIC/IMMUNO: ARE YOU ALLERGIC TO IV DYE? NO . ANY NEW ALLERGIES? NO . PSYCHIATRIC: DO YOU HAVE THOUGHTS OF HURTING YOURSELF OR SOMEONE ELSE? NO . ARE YOU ABUSED, NEGLECTED, OR IN AN UNSAFE ENVIRONMENT? NO . ENDOCRINOLOGY: ARE YOU DIABETIC? YES FSBS AT 0700 WAS 124 . OTHER: DO YOU NEED ANY PRESCRIPTIONS? NO . IF YES, PLEASE LIST: ____ . ANY NEW PROBLEMS WITH YOUR MEDICATIONS? NO . WHEN DID YOU LAST EAT? 05/22 2100 . WHEN DID YOU LAST DRINK? 05/22 2300 . WHAT DID YOU LAST DRINK? WATER . NAME OF PERSON DRIVING YOU HOME? KELECHI . DO YOU HAVE ANY OTHER QUESTIONS OR CONCERNS NO . VITAL SIGNS WT 255.4 LBS, HT 70 IN, BMI 36.64 INDEX, BP 125/78 MM HG, HR 68 /MIN, RR 18 /MIN, TEMP 97.1 F, OXYGEN SAT % 96%, SAFE IN ENV? (Y/N) Y, NA INITIALS TN 09:04, REVIEWED BY: AD. ASSESSMENTS SPONDYLOSIS OF LUMBAR REGION WITHOUT MYELOPATHY OR RADICULOPATHY - M47.816 (PRIMARY) SPONDYLOSIS OF LUMBOSACRAL REGION WITHOUT MYELOPATHY OR RADICULOPATHY - M47.817 TREATMENT SPONDYLOSIS OF LUMBOSACRAL REGION WITHOUT MYELOPATHY OR RADICULOPATHY SMC FACET BLOCK (PAIN)[id number] PROCEDURES PN LUMBAR FACET BLOCK DIAGNOSTIC PRE PROCEDURE DIAGNOSIS LUMBAR SPONDYLOSIS, LUMBOSACRAL SPONDYLOSIS POST PROCEDURE DIAGNOSIS LUMBAR SPONDYLOSIS, LUMBOSACRAL SPONDYLOSIS PROCEDURE BILATERAL L4-L5 AND L5-S1 FACET BLOCK DIAGNOSTIC NUMBER [address] GARRETT MEDLEY DREDGE PUMPER NONE ANESTHESIA LOCAL PRE PROCEDURE NOTE THE PATIENT WITH HISTORY OF CHRONIC LOW BACK PAIN. I EVALUATED THE PATIENT AND REVIEWED THE CHART. I WENT OVER THE RISKS, ALTERNATIVES, AND BENEFITS ASSOCIATED WITH THIS PROCEDURE. THE PATIENT WOULD LIKE TO PROCEED AND GAVE CONSENT TO PERFORM THE PROCEDURE. AGREED WITH THE PATIENT WE ARE DOING THIS PROCEDURE TO DETERMINE IF THE PATIENT IS A CANDIDATE FOR A RADIOFREQUENCY ABLATION OF THE FACETS JOINTS. THE PATIENT DENIES UNEXPLAINABLE WEIGHT LOSS, FEVER, CHILLS, OR NEW CHANGES IN URINARY OR BOWEL CONTROL DESCRIPTION OF PROCEDURE THE PATIENT WAS BROUGHT TO THE PROCEDURE ROOM AND PLACED IN THE PRONE POSITION. THE LUMBOSACRAL AREA WAS CLEANED WITH CHLORAPREP SOLUTION AND DRAPED ASEPTICALLY. THE PROCEDURE WAS DONE UNDER STERILE CONDITIONS. I CHECKED LATERALITY AND THE LEVEL WHERE THE PROCEDURE WAS GOING TO BE PERFORMED WITH THE PATIENT AND THE SUPPORTING STAFF AT THE MOMENT OF THE TIME OUT IN THE PROCEDURE ROOM. UNDER FLUOROSCOPIC GUIDANCE, TARGETS WERE SELECTED AT THE INTERSECTION OF THE RIGHT AND LEFT TRANSVERSE PROCESS OF L4, L5 AND ALA OF S1 WITH ITS RESPECTIVE SUPERIOR ARTICULAR PROCESS. LIDOCAINE WAS USED TO NUMB THE SKIN AND THE SUBCUTANEOUS TISSUE BELOW IT. SPINAL NEEDLE, 22-GAUGE WAS ADVANCED UNDER FLUOROSCOPIC GUIDANCE AND FOLLOWING PATIENT FEEDBACK UNTIL THE TARGETS WERE REACHED. POSITION OF THE NEEDLES WAS VERIFIED WITH AP AND LATERAL VIEWS. AFTER PROPER POSITION OF THE NEEDLES WAS ACHIEVED, ISOVUE-M DYE 30% 0.1 ML WAS INJECTED AT EACH SITE SHOWING ADEQUATE SPREAD OF THE DYE. THEN A SOLUTION OF 0.4 ML OF BUPIVACAINE 0.25% WAS INJECTED AT EACH SITE. THERE WAS NO EVIDENCE OF BLOOD, PARESTHESIA OR CEREBROSPINAL FLUID DURING THE PROCEDURE. THE PATIENT WAS SENT TO THE RECOVERY ROOM. THE PATIENT WAS MOVING THE EXTREMITIES AND DOING WELL. THERE WAS NO COMPLICATION DURING THE PROCEDURE. FLUOROSCOPY TIME WAS 39 SECONDS POST PROCEDURE NOTE THE PATIENT WILL DOCUMENT HIS PAIN LEVEL AND RESPONSE TO THIS PROCEDURE EVERY 30 MINUTES. THE PATIENT WILL BE SEEN IN A FOLLOW UP IN THE NEXT FEW WEEKS. FURTHER DETERMINATION FOR HIS CASE WILL BE DONE AT THE NEXT VISIT. INSTRUCTIONS WERE GIVEN, QUESTIONS WERE ANSWERED, AND THE PATIENT EXPRESSED UNDERSTANDING AND AGREED WITH THE PLAN. I, TOMAS GILL, DOCUMENTED THE ABOVE INFORMATION ACTING A SCRIBE FOR DR. MEDLEY. I HAVE REVIEWED THE ABOVE DOCUMENT, WRITTEN BY TOMAS HYATTIBKimani AND I VERIFY THAT IT IS ACCURATE. PROCEDURE CODES 03874 INJ PARAVERT F JNT L/S 1 LEV, MODIFIERS: 50 [id number] INJ PARAVERT F JNT L/S 2 LEV, MODIFIERS: 50 [id number] RADXPS IN END [id number] PXD DISPOSITION & COMMUNICATION FOLLOW UP 3 WEEKS ELECTRONICALLY SIGNED BY GARRETT MEDLEY MD, MD ON 06/02/2019 AT 11:25 AM EDT DISCLAIMER : THIS IS A VISIT SUMMARY EXTRACTED FROM THE [employer]now [employer] CHART. IT IS NOT A COPY OF THE [employer] PROGRESS NOTE. MTDD
== END ==
LOC: M PAIN 08:30
PROVIDERS: ATTEND Anesthesiology
DX: M47.816 Spondylosis without myelopathy or radiculopathy, lumbar region (principal); M47.817 Spondylosis without myelopathy or radiculopathy, lumbosacral region; E78.5 Hyperlipidemia, unspecified; I10 Essential (primary) hypertension; E11.9 Type 2 diabetes mellitus without complications; K21.9 Gastro-esophageal reflux disease without esophagitis; M19.90 Unspecified osteoarthritis, unspecified site; M45.9 Ankylosing spondylitis of unspecified sites in spine; Z79.82 Long term (current) use of aspirin; Z79.4 Long term (current) use of insulin; Z79.891 Long term (current) use of opiate analgesic; Z79.899 Other long term (current) 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; Z88.8 Allergy status to other drugs, medicaments and biological substances
CPT/HCPCS: 64493; 64494; Q9967

== ENCOUNTER → 2019-06-06 | Outpatient (CLI) | payer MEDICARE, BC, OTHER ==
[~2019-06-06] MED LIST changes: -BUPIVACAINE HCL 0.25% 30 ML VIAL As Ordered ONE; -ISOVUE-M 300 61% 15ML VIAL (Q9967) As Ordered ONE; -LIDOCAINE 1% SDV INJ 30 ML VIAL As Ordered ONE
--- NOTE | 2019-06-08 00:13 | ECWPNPC ---
PATIENT NAME: TYE CLAUDIO : 1950 GENDER: MALE VISIT DATE: 06/06/2019 DISCHARGE DATE: 06/06/19 1108 VISIT LOCKED DATE TIME: PHYSICIAN: LULY JOHNSON RESOURCE: LULY JOHNSON REASON FOR APPOINTMENT 1. POST PROCEDURE HISTORY OF PRESENT ILLNESS HISTORY OF PRESENT ILLNESS: PAIN THE PATIENT DESCRIBES THE PAIN... 69-YEAR-OLD MALE IN FOR POST DIAGNOSTIC FACET BLOCK #1 FOLLOW-UP. HE FEELS THE PROCEDURE WORKED WELL AND GAVE HIM RELIEF FOR ABOUT 5 HOURS AND THEN HIS PAIN STARTED TO RETURN GRADUALLY AT 1-2 OUT OF 10 AND THEN RETURNING TO ABOUT 4-6 OUT OF 10 AT DAY 2. HE DOES ADMIT THE PAIN IS LOCATED MOSTLY ON HIS RIGHT SIDE. HE RATES HIS PAIN TODAY AT A 4/10 AND DESCRIBES IT ACHING, AND SHARP. FALL RISK SCREENING: SCREENING :NO FALLS REPORTED IN THE LAST YEAR CURRENT MEDICATIONS TAKING ASPIRIN 81 81 MG TABLET CHEWABLE 1 TABLET ORALLY ONCE A DAY TAKING ATENOLOL 100 MG TABLET 1 TABLET ORALLY ONCE A DAY TAKING CITALOPRAM HYDROBROMIDE 20 MG TABLET 1 TABLET ORALLY ONCE A DAY TAKING FLONASE 50 MCG/DOSE INHALER 1 SPRAY IN EACH NOSTRIL NASALLY ONCE A DAILY-TAKES NEEDED TAKING HYDROCHLOROTHIAZIDE 25 MG TABLET 1 TABLET IN THE MORNING ORALLY ONCE A DAY TAKING NOVOLOG FLEXPEN 100 UNIT/ML SOLUTION PEN-INJECTOR SLIDING SCALE SUBCUTANEOUS , NOTES: 05/22 1800 20 UNITS TAKING LANTUS SOLOSTAR 100 UNIT/ML SOLUTION 60 UNITS SUBCUTANEOUS DAILY, NOTES: 05/22 2200 TAKING LISINOPRIL 40 MG TABLET 1 TABLET ORALLY ONCE A DAY TAKING PANTOPRAZOLE SODIUM 40 MG TABLET DELAYED RELEASE 1 TABLET ORALLY ONCE A DAY TAKING CRESTOR 20 MG TABLET 1 TABLET ORALLY ONCE A DAY TAKING METFORMIN HCL 500 MG TABLET 1 TABLET WITH MEALS ORALLY TWICE A DAY, NOTES: 05/22 2200 TAKING REMICADE 100 MG SOLUTION RECONSTITUTED 900 MG INTRAVENOUS EVERY 4 WEEKS, NOTES: 04/22 TAKING IBUPROFEN 600 MG TABLET 1 TABLET WITH FOOD OR MILK NEEDED ORALLY THREE TIMES A DAY, NOTES: NONE TAKING ACETAMINOPHEN 325 MG CAPSULE 1 CAPSULE NEEDED ORALLY EVERY 4 HRS, NOTES: 05/22 2200 TAKING EMPAGLIFLOZIN 25 MG TABLET 1 TABLET ORALLY ONCE A DAY, NOTES: 05/22 2200 TAKING GABAPENTIN 600 MG TABLET 1 TABLET ORALLY Q8H TID, NOTES: 9/16 2200 TAKING TRAMADOL HCL 50 MG TABLET 1 TABLET NEEDED ORALLY Q8H PRN SEVERE PAIN MDD3, NOTES: NONE RECENT MEDICATION LIST REVIEWED AND RECONCILED WITH THE PATIENT PAST MEDICAL HISTORY HYPERLIPIDEMIA HYPERTENSION DIABETES MELLITUS TYPE 2 ACID REFLUX ARTHRITIS ANKYLOSIS SPONDYLITIS/ ARTHRITIS HEALTH SPEC - [place] BACK PAIN ALLERGIES LIPITOR: MUSCLE PAIN - SIDE EFFECTS SURGICAL HISTORY LEFT KNEE SURGERY RIGHT FOOT BUNIONECTOMY FAMILY HISTORY FATHER: , DIAGNOSED WITH DIABETES MOTHER: ALIVE, UNSPECIFIED CEREBRAL ARTERY OCCLUSION WITH CEREBRAL INFARCTION, OTHER SPECIFIED CONDITIONS INFLUENCING HEALTH STATUS 4 SON(S) , 1 DAUGHTER(S) - HEALTHY. MOTHER HAS HISTORY OF ARTHRITIS AND STROKE. SOCIAL HISTORY GENERAL: TOBACCO USE ARE YOU A:NONSMOKER PAIN CLINIC PFS, CLERGY, PUBLIC HEALTH REFERRALS PFS REFERRAL NEEDED?NO CLERGY REFERRAL NEEDED?NO PUBLIC HEALTH REFERRAL NEEDED?NO WAS THE PROVIDER NOTIFIED OF ANY PERTINENT INFO? N/A HAS THE PATIENT BEEN EDUCATED REGARDING HIS/HER PLAN OF CARE?YES HAS THE PATIENT BEEN EDUCATED REGARDING PAIN, THE RISK FOR PAIN, THE IMPORTANCE OF EFFECTIVE PAIN MANAGEMENT, AND THE PAIN ASSESSMENT PROCESS?YES LATEX QUESTIONNAIRE LATEX ALLERGY : HAVE YOU EVER DEVELOPED ANY TYPE OF REACTION AFTER HANDLING LATEX PRODUCTS SUCH RUBBER GLOVES, CONDOMS, DIAPHRAGMS, BALLOONS, SOCKS, OR UNDERWEAR?NO LATEX ALLERGY : HAVE YOU EVER DEVELOPED ANY TYPE OF REACTION DURING OR AFTER DENTAL APPOINTMENT, VAGINAL/RECTAL EXAMINATION, SURGICAL PROCEDURE, OR ANY OTHER EXPOSURE?NO DATE ASKED : 05/23/2019 LATEX RISK : HAVE YOU EVER HAD ANY DIFFICULTY BREATHING OR HIVES AFTER EATING OR HANDLING ANY FRUITS, OR VEGETABLES; SUCH KIWI, BANANAS, STONE FRUITS, OR CHESTNUTSNO LATEX RISK : DO YOU HAVE A PREVIOUS PERSONAL HISTORY OF MORE THAN NINE SURGERIES, SPINA BIFIDA, OR REPEATED CATHERIZATIONS? NO LATEX RISK : ARE YOU FREQUENTLY EXPOSED TO LATEX PRODUCTS IN YOUR OCCUPATION?NO CAFFEINE CAFFEINE USE?YES COFFEE DAILY ADVANCE DIRECTIVE ADVANCE DIRECTIVE DISCUSSED WITH PATIENT:YES PT DOES NOT HAVE ANY ADVANCED DIRECTIVES AND HE DECLINES INFORMATION ON HCP AT THIS TIME, STATES THAT HE HAS THE INFORMATION AT HOME. ASSISTANCE OFFERED IN COMPLETING HCP IF NEEDED. [employer]-ISM [id number] [employer] LANGUAGE LANGUAGES SPOKEN:[place] DOMESTIC VIOLENCE DO YOU FEEL SAFE IN YOUR ENVIRONMENT?YES ALCOHOL SCREENING DID YOU HAVE A DRINK CONTAINING ALCOHOL IN THE PAST YEAR?YES HOW OFTEN DID YOU HAVE SIX OR MORE DRINKS ON ONE OCCASION IN THE PAST YEAR?NEVER (0 POINTS) HOW MANY DRINKS DID YOU HAVE ON A TYPICAL DAY WHEN YOU WERE DRINKING IN THE PAST YEAR?1 OR 2 (0 POINTS) HOW OFTEN DID YOU HAVE A DRINK CONTAINING ALCOHOL IN THE PAST YEAR?TWO TO FOUR TIMES A MONTH (2 POINTS) POINTS2 INTERPRETATIONNEGATIVE RECREATIONAL DRUG USE DRUG USE?NO LEARNING BARRIERS / SPECIAL NEEDS BARRIERS TO LEARNING?NO HEARING IMPAIRED?NO VISION IMPAIRED?YES COGNITIVELY IMPAIRED?NO :CORRECTIVE LENSES READINESS TO LEARN?YES LEARNING PREFERENCES?YES :DEMONSTRATION/VERBAL INSTRUCTION LEARNING CAPABILITIES PRESENT?YES EMOTIONAL BARRIERS?NO SPECIAL DEVICES?NO RISK MGR NEEDED?NO REVIEWED 02/23/18 0945 LAS06/01/18 0905 REVIEWED WITH PT. ADREVIEWED WITH PT 06/23/18 1032 BV09/15/18 REVIEWED WITH PT. PARMJITWED WITH PT 10/11/18 1130 LASREVIEWED WITH PATIENT 06/06/2019 LASREVIEWED WITH PATIENT 12/28/18 0924 JS11/17/18 REVIEWED WITH PT. HOSPITALIZATION/MAJOR DIAGNOSTIC PROCEDURE KNEE SURG REVIEW OF SYSTEMS REVIEWED BY: PROVIDER: CARLI FUENTES . CONSTITUTIONAL: ANY CHANGE IN YOUR MEDICAL CONDITION? NO . CHILLS NO . FEVER NO . INFECTION: DO YOU HAVE NEW INFECTIONS? NO . DO YOU HAVE HISTORY OF MRSA? NO . MUSCULOSKELETAL: ANY NEW PATTERNS OF PAIN OR NUMBNESS? NO . GASTROENTEROLOGY: ANY NEW CHANGE IN BOWEL CONTROL? NO . GENITOURINARY: ANY NEW CHANGE IN BLADDER CONTROL? NO . IS THERE A CHANCE YOU COULD BE ? NO . HEMATOLOGY/LYMPH: DO YOU TAKE ANY BLOOD THINNERS? (FOR EXAMPLE- COUMADIN, PLAVIX, AGGRENOX, PLATEL, PRADAXA, OR XARELTO) NO . WHEN WAS YOUR LAST DOSE? DATE: TIME: . NEUROLOGY: HAVE YOU FALLEN IN THE PAST 12 MONTHS? NO . ANY NEW EXTREMITY NUMBNESS OR WEAKNESS? NO . CARDIOLOGY: DO YOU HAVE A PACEMAKER OR DEFIBRILLATOR? NO . RESPIRATORY: HAVE YOU BEEN SICK IN THE PAST WEEK? NO . FEVER NO . FLU LIKE SYMPTOMS? NO . COUGH NO . INTEGUMENTARY: DO YOU HAVE ANY RASHES OR OPEN SORES? NO . ALLERGIC/IMMUNO: ARE YOU ALLERGIC TO IV DYE? NO . ANY NEW ALLERGIES? NO . PSYCHIATRIC: DO YOU HAVE THOUGHTS OF HURTING YOURSELF OR SOMEONE ELSE? NO . ARE YOU ABUSED, NEGLECTED, OR IN AN UNSAFE ENVIRONMENT? NO . ENDOCRINOLOGY: ARE YOU DIABETIC? YES . OTHER: DO YOU NEED ANY PRESCRIPTIONS? NO . IF YES, PLEASE LIST: ____ . ANY NEW PROBLEMS WITH YOUR MEDICATIONS? NO . WHEN DID YOU LAST EAT? ____ . WHEN DID YOU LAST DRINK? ____ . WHAT DID YOU LAST DRINK? ____ . NAME OF PERSON DRIVING YOU HOME? ____ . DO YOU HAVE ANY OTHER QUESTIONS OR CONCERNS NO . VITAL SIGNS WT 256 LBS, HT 70 IN, BMI 36.73 INDEX, BP 109/67 MM HG, HR 95 /MIN, RR 18 /MIN, TEMP 95.9 F, OXYGEN SAT % 97%, SAFE IN ENV? (Y/N) YES, NA INITIALS IL 10:29, REVIEWED BY: MARCIO. EXAMINATION GENERAL EXAMINATION: GENERALNO ACUTE DISTRESS, WELL NOURISHED AND HYDRATED. PSYCHAPPROPRIATE MOOD AND AFFECT . LUNGS:CLEAR TO AUSCULTATION BILATERALLY, NO WHEEZES, RHONCHI, RALES. HEART:NO MURMURS, REGULAR RATE AND RHYTHM. BACK:POINT TENDER IN LUMBAR SPINE. SURROUNDING SKIN SHOWS NO ERYTHEMA, ECCHYMOSIS, INCREASED WARMTH, AND/OR SKIN ERUPTIONS NOTED. HE DOES ENDORSE INCREASED PAIN WITH RIGHT SIDED FACET LOADING. . ASSESSMENTS SPONDYLOSIS OF LUMBOSACRAL REGION WITHOUT MYELOPATHY OR RADICULOPATHY - M47.817 (PRIMARY) TREATMENT SPONDYLOSIS OF LUMBOSACRAL REGION WITHOUT MYELOPATHY OR RADICULOPATHY NOTES: RIGHT-SIDED DIAGNOSTIC FACET #2 L4-L5 L5-S1. CLINICAL NOTES: 69-YEAR-OLD MALE IN FOR POST DIAGNOSTIC FACET BLOCK 1 FOLLOW-UP. GIVEN PRESENTING SYMPTOMS AND RESULTS OF PHYSICAL EXAMINATION RECOMMENDED RIGHT-SIDED DIAGNOSTIC FACET BLOCK #2 WITH POSTPROCEDURAL FOLLOW-UP. PATIENT HAS EXPRESSED UNDERSTANDING OF AND WAS IN AGREEMENT WITH TREATMENT PLAN. GIVEN TIME TO ASK QUESTIONS AND EXPRESSED CONCERNS., ISTOP REGISTRY REVIEWED AND DEMONSTRATES COMPLLIANCE. (REF # [id number] ) BRINGS IN MEDICATIONS WHICH IS APPROPRIATE FOR WHAT WAS DISPENSED. RECENT URINE TOXICOLOGY REVIEWED. NO UNAUTHORIZED MEDICATIONS. NO ILLICIT SUBSTANCES AND PRESCRIBED MEDICATIONS WERE PRESENT. PREVENTIVE MEDICINE PAIN CLINIC TEACHING: PROCEDURE TEACHING PROCEDURE REVIEWED, PRE PROCEDURE INSTRUCTIONS REVIEWED. 06/06/2019 PROCEDURE CODES FA211 ESTABILISHED PATIENT [facility] CHARGE DISPOSITION & COMMUNICATION FOLLOW UP POST PROCEDURE (REASON: RIGHT-SIDED DIAGNOSTIC FACET #2 L4-L5 L5-S1) ELECTRONICALLY SIGNED BY MARIXA SANDRA ON 06/07/2019 AT 10:46 AM EDT DISCLAIMER : THIS IS A VISIT SUMMARY EXTRACTED FROM THE [employer] CHART. IT IS NOT A COPY OF THE [employer] PROGRESS NOTE. MYNOR
== END ==
LOC: M PAIN 10:30
PROVIDERS: ATTEND Family Medicine
DX: M47.817 Spondylosis without myelopathy or radiculopathy, lumbosacral region (principal); E78.5 Hyperlipidemia, unspecified; I10 Essential (primary) hypertension; E11.9 Type 2 diabetes mellitus without complications; K21.9 Gastro-esophageal reflux disease without esophagitis; M19.90 Unspecified osteoarthritis, unspecified site; Z88.8 Allergy status to other drugs, medicaments and biological substances; Z79.82 Long term (current) use of aspirin; Z79.4 Long term (current) use of insulin; Z79.899 Other long term (current) 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

== ENCOUNTER → 2019-07-13 | Outpatient (CLI) | payer MEDICARE, BC, OTHER ==
[~2019-07-13] MED LIST changes: +BUPIVACAINE HCL 0.25% 30 ML VIAL As Ordered ONE; +ISOVUE-M 300 61% 15ML VIAL (Q9967) As Ordered ONE; +LIDOCAINE 1% SDV INJ 30 ML VIAL As Ordered ONE
--- NOTE | 2019-07-13 12:30 | REP ---
Partial lumbar spine series: To views . History: Injection procedure for pain. 27 seconds of fluoroscopy time is reported. Findings: A sequence of two fluoroscopically obtained last image hold procedural spot radiographs of the lumbar spine document needle position and contrast injection associated with injection procedure. Electronically Signed by Sánchez Hathaway MD 07/13/2019 12:21 P
--- NOTE | 2019-07-26 02:39 | ECWPNPC ---
PATIENT NAME: TYE CLAUDIO : 1950 GENDER: MALE VISIT DATE: 07/13/2019 DISCHARGE DATE: 07/13/19 1058 VISIT LOCKED DATE TIME: PHYSICIAN: GARRETT MEDLEY MD RESOURCE: GARRETT MEDLEY MD REASON FOR APPOINTMENT 1. RIGHT-SIDED DIAGNOSTIC FACET #2 L4-L5 L5-S1 HISTORY OF PRESENT ILLNESS HISTORY OF PRESENT ILLNESS: PAIN THE PATIENT DESCRIBES THE PAIN... FALL RISK SCREENING: SCREENING :NO FALLS REPORTED IN THE LAST YEAR CURRENT MEDICATIONS TAKING ASPIRIN 81 81 MG TABLET CHEWABLE 1 TABLET ORALLY ONCE A DAY, NOTES: 07/12/192199 TAKING ATENOLOL 100 MG TABLET 1 TABLET ORALLY ONCE A DAY, NOTES: 07/12/192199 TAKING CITALOPRAM HYDROBROMIDE 20 MG TABLET 1 TABLET ORALLY ONCE A DAY, NOTES: 07/12/192199 TAKING FLONASE 50 MCG/DOSE INHALER 1 SPRAY IN EACH NOSTRIL NASALLY ONCE A DAILY-TAKES NEEDED, NOTES: 07/11/19 TAKING HYDROCHLOROTHIAZIDE 25 MG TABLET 1 TABLET IN THE MORNING ORALLY ONCE A DAY, NOTES: 07/12/19 AM TAKING NOVOLOG FLEXPEN 100 UNIT/ML SOLUTION PEN-INJECTOR SLIDING SCALE SUBCUTANEOUS , NOTES: 07/12/19 20 UNITS TAKING LANTUS SOLOSTAR 100 UNIT/ML SOLUTION 60 UNITS SUBCUTANEOUS DAILY, NOTES: 05/22 2200 TAKING LISINOPRIL 40 MG TABLET 1 TABLET ORALLY ONCE A DAY, NOTES: 07/12/192199 TAKING PANTOPRAZOLE SODIUM 40 MG TABLET DELAYED RELEASE 1 TABLET ORALLY ONCE A DAY, NOTES: 07/12/19 200 TAKING CRESTOR 20 MG TABLET 1 TABLET ORALLY ONCE A DAY, NOTES: 07/12/192199 TAKING METFORMIN HCL 500 MG TABLET 1 TABLET WITH MEALS ORALLY TWICE A DAY, NOTES: 07/12/192199 TAKING REMICADE 100 MG SOLUTION RECONSTITUTED 900 MG INTRAVENOUS EVERY 4 WEEKS, NOTES: ABOUT ONE MONTH AGO TAKING IBUPROFEN 600 MG TABLET 1 TABLET WITH FOOD OR MILK NEEDED ORALLY THREE TIMES A DAY, NOTES: 07/12/192199 TAKING ACETAMINOPHEN 325 MG CAPSULE 1 CAPSULE NEEDED ORALLY EVERY 4 HRS, NOTES: 07/12/192199 TAKING EMPAGLIFLOZIN 25 MG TABLET 1 TABLET ORALLY ONCE A DAY, NOTES: 07/12/19 AM TAKING GABAPENTIN 600 MG TABLET 1 TABLET ORALLY Q8H TID, NOTES: 07/12/192199 TAKING TRAMADOL HCL 50 MG TABLET 1 TABLET NEEDED ORALLY Q8H PRN SEVERE PAIN MDD3, NOTES: 07/12/192199 TAKING PREDNISONE (BARBIE) 10 MG TABLET DIRECTED ORALLY , NOTES: 4 TABS FOR 3 DAYS, 3 FOR 3 DAYS, 2 FOR 3 DAYS, 1 FOR 3 DAYS TAKING TIZANIDINE HCL 4 MG TABLET 1 TABLET NEEDED ORALLY THREE TIMES A DAY, NOTES: 07/12/192199 MEDICATION LIST REVIEWED AND RECONCILED WITH THE PATIENT PAST MEDICAL HISTORY HYPERLIPIDEMIA HYPERTENSION DIABETES MELLITUS TYPE 2 ACID REFLUX ARTHRITIS ANKYLOSIS SPONDYLITIS/ ARTHRITIS HEALTH SPEC - SYRACUSE BACK PAIN ALLERGIES LIPITOR: MUSCLE PAIN - SIDE EFFECTS SURGICAL HISTORY LEFT KNEE SURGERY RIGHT FOOT BUNIONECTOMY FAMILY HISTORY FATHER: , DIAGNOSED WITH DIABETES MOTHER: ALIVE, OTHER SPECIFIED CONDITIONS INFLUENCING HEALTH STATUS, UNSPECIFIED CEREBRAL ARTERY OCCLUSION WITH CEREBRAL INFARCTION 4 SON(S) , 1 DAUGHTER(S) - HEALTHY. MOTHER HAS HISTORY OF ARTHRITIS AND STROKE. SOCIAL HISTORY GENERAL: TOBACCO USE ARE YOU A:NONSMOKER PAIN CLINIC PFS, CLERGY, PUBLIC HEALTH REFERRALS PFS REFERRAL NEEDED?NO CLERGY REFERRAL NEEDED?NO PUBLIC HEALTH REFERRAL NEEDED?NO WAS THE PROVIDER NOTIFIED OF ANY PERTINENT INFO? N/A HAS THE PATIENT BEEN EDUCATED REGARDING HIS/HER PLAN OF CARE?YES HAS THE PATIENT BEEN EDUCATED REGARDING PAIN, THE RISK FOR PAIN, THE IMPORTANCE OF EFFECTIVE PAIN MANAGEMENT, AND THE PAIN ASSESSMENT PROCESS?YES LATEX QUESTIONNAIRE LATEX ALLERGY : HAVE YOU EVER DEVELOPED ANY TYPE OF REACTION AFTER HANDLING LATEX PRODUCTS SUCH RUBBER GLOVES, CONDOMS, DIAPHRAGMS, BALLOONS, SOCKS, OR UNDERWEAR?NO LATEX ALLERGY : HAVE YOU EVER DEVELOPED ANY TYPE OF REACTION DURING OR AFTER DENTAL APPOINTMENT, VAGINAL/RECTAL EXAMINATION, SURGICAL PROCEDURE, OR ANY OTHER EXPOSURE?NO DATE ASKED : 05/23/2019 LATEX RISK : HAVE YOU EVER HAD ANY DIFFICULTY BREATHING OR HIVES AFTER EATING OR HANDLING ANY FRUITS, OR VEGETABLES; SUCH KIWI, BANANAS, STONE FRUITS, OR CHESTNUTSNO LATEX RISK : DO YOU HAVE A PREVIOUS PERSONAL HISTORY OF MORE THAN NINE SURGERIES, SPINA BIFIDA, OR REPEATED CATHERIZATIONS? NO LATEX RISK : ARE YOU FREQUENTLY EXPOSED TO LATEX PRODUCTS IN YOUR OCCUPATION?NO CAFFEINE CAFFEINE USE?YES COFFEE DAILY ADVANCE DIRECTIVE ADVANCE DIRECTIVE DISCUSSED WITH PATIENT:YES PT DOES NOT HAVE ANY ADVANCED DIRECTIVES AND HE DECLINES INFORMATION ON HCP AT THIS TIME, STATES THAT HE HAS THE INFORMATION AT HOME. ASSISTANCE OFFERED IN COMPLETING HCP IF NEEDED. [employer] [id number] JAIN LANGUAGE LANGUAGES SPOKEN:QATARI DOMESTIC VIOLENCE DO YOU FEEL SAFE IN YOUR ENVIRONMENT?YES ALCOHOL SCREENING DID YOU HAVE A DRINK CONTAINING ALCOHOL IN THE PAST YEAR?YES HOW OFTEN DID YOU HAVE SIX OR MORE DRINKS ON ONE OCCASION IN THE PAST YEAR?NEVER (0 POINTS) HOW MANY DRINKS DID YOU HAVE ON A TYPICAL DAY WHEN YOU WERE DRINKING IN THE PAST YEAR?1 OR 2 (0 POINTS) HOW OFTEN DID YOU HAVE A DRINK CONTAINING ALCOHOL IN THE PAST YEAR?TWO TO FOUR TIMES A MONTH (2 POINTS) POINTS2 INTERPRETATIONNEGATIVE RECREATIONAL DRUG USE DRUG USE?NO LEARNING BARRIERS / SPECIAL NEEDS BARRIERS TO LEARNING?NO HEARING IMPAIRED?NO VISION IMPAIRED?YES COGNITIVELY IMPAIRED?NO :CORRECTIVE LENSES READINESS TO LEARN?YES LEARNING PREFERENCES?YES :DEMONSTRATION/VERBAL INSTRUCTION LEARNING CAPABILITIES PRESENT?YES EMOTIONAL BARRIERS?NO SPECIAL DEVICES?NO GAS METER READER NEEDED?NO REVIEWED 02/23/18 0945 LAS06/01/18 0905 REVIEWED WITH PT. PARMJITWED WITH PT 06/23/18 1032 BV09/15/18 REVIEWED WITH PT. NAYELID WITH PT 10/11/18 1130REVIEWED WITH PATIENT 06/06/2019 LASREVIEWED WITH PATIENT 12/28/18 0924 JS11/17/18 REVIEWED WITH PT.REVIEWED WITH PATIENT 07/13/19 0916 NLJ. HOSPITALIZATION/MAJOR DIAGNOSTIC PROCEDURE KNEE SURG REVIEW OF SYSTEMS REVIEWED BY: PROVIDER: . CONSTITUTIONAL: ANY CHANGE IN YOUR MEDICAL CONDITION? NO . CHILLS NO . FEVER NO . INFECTION: DO YOU HAVE NEW INFECTIONS? NO . DO YOU HAVE HISTORY OF MRSA? NO . MUSCULOSKELETAL: ANY NEW PATTERNS OF PAIN OR NUMBNESS? NO . GASTROENTEROLOGY: ANY NEW CHANGE IN BOWEL CONTROL? NO . GENITOURINARY: ANY NEW CHANGE IN BLADDER CONTROL? NO . IS THERE A CHANCE YOU COULD BE ? NO . HEMATOLOGY/LYMPH: DO YOU TAKE ANY BLOOD THINNERS? (FOR EXAMPLE- COUMADIN, PLAVIX, AGGRENOX, PLATEL, PRADAXA, OR XARELTO) NO . WHEN WAS YOUR LAST DOSE? DATE: TIME: . NEUROLOGY: HAVE YOU FALLEN IN THE PAST 12 MONTHS? NO . ANY NEW EXTREMITY NUMBNESS OR WEAKNESS? NO . CARDIOLOGY: DO YOU HAVE A PACEMAKER OR DEFIBRILLATOR? NO . RESPIRATORY: HAVE YOU BEEN SICK IN THE PAST WEEK? NO . FEVER NO . FLU LIKE SYMPTOMS? NO . COUGH NO . INTEGUMENTARY: DO YOU HAVE ANY RASHES OR OPEN SORES? NO . ALLERGIC/IMMUNO: ARE YOU ALLERGIC TO IV DYE? NO . ANY NEW ALLERGIES? NO . PSYCHIATRIC: DO YOU HAVE THOUGHTS OF HURTING YOURSELF OR SOMEONE ELSE? NO . ARE YOU ABUSED, NEGLECTED, OR IN AN UNSAFE ENVIRONMENT? NO . ENDOCRINOLOGY: ARE YOU DIABETIC? YES- [id number] . OTHER: DO YOU NEED ANY PRESCRIPTIONS? NO . IF YES, PLEASE LIST: ____ . ANY NEW PROBLEMS WITH YOUR MEDICATIONS? NO . WHEN DID YOU LAST EAT? 07/12/192099 . WHEN DID YOU LAST DRINK? 07/12/192199 . WHAT DID YOU LAST DRINK? WATER . NAME OF PERSON DRIVING YOU HOME? ____BEVERLY- . DO YOU HAVE ANY OTHER QUESTIONS OR CONCERNS NO . VITAL SIGNS WT 257 LBS, HT 70 IN, BMI 36.87 INDEX, BP 154/87 MM HG, HR 70 /MIN, RR 18 /MIN, TEMP 97.6 F, OXYGEN SAT % 96%, NA INITIALS AW 0912. ASSESSMENTS SPONDYLOSIS WITHOUT MYELOPATHY OR RADICULOPATHY, LUMBAR REGION - M47.816 (PRIMARY) SPONDYLOSIS OF LUMBOSACRAL REGION WITHOUT MYELOPATHY OR RADICULOPATHY - M47.817 TREATMENT SPONDYLOSIS OF LUMBOSACRAL REGION WITHOUT MYELOPATHY OR RADICULOPATHY SMC FACET BLOCK (PAIN)[id number] PROCEDURES PN LUMBAR FACET BLOCK DIAGNOSTIC PRE PROCEDURE DIAGNOSIS LUMBAR SPONDYLOSIS, LUMBOSACRAL SPONDYLOSIS POST PROCEDURE DIAGNOSIS LUMBAR SPONDYLOSIS, LUMBOSACRAL SPONDYLOSIS PROCEDURE RIGHT L4-L5 AND RIGHT L5-S1 FACET BLOCK DIAGNOSTIC NUMBER [address] GARRETT MEDLEY MD PSYCHIATRY NONE ANESTHESIA LOCAL PRE PROCEDURE NOTE THE PATIENT WITH HISTORY OF CHRONIC LOW BACK PAIN. I EVALUATED THE PATIENT AND REVIEWED THE CHART. I WENT OVER THE RISKS, ALTERNATIVES, AND BENEFITS ASSOCIATED WITH THIS PROCEDURE. THE PATIENT WOULD LIKE TO PROCEED AND GAVE CONSENT TO PERFORM THE PROCEDURE. AGREED WITH THE PATIENT WE ARE DOING THIS PROCEDURE TO DETERMINE IF THE PATIENT IS A CANDIDATE FOR A RADIOFREQUENCY ABLATION OF THE FACETS JOINTS. THE PATIENT DENIES UNEXPLAINABLE WEIGHT LOSS, FEVER, CHILLS, OR NEW CHANGES IN URINARY OR BOWEL CONTROL DESCRIPTION OF PROCEDURE THE PATIENT WAS BROUGHT TO THE PROCEDURE ROOM AND PLACED IN THE PRONE POSITION. THE LUMBOSACRAL AREA WAS CLEANED WITH CHLORAPREP SOLUTION AND DRAPED ASEPTICALLY. THE PROCEDURE WAS DONE UNDER STERILE CONDITIONS. I CHECKED LATERALITY AND THE LEVEL WHERE THE PROCEDURE WAS GOING TO BE PERFORMED WITH THE PATIENT AND THE SUPPORTING STAFF AT THE MOMENT OF THE TIME OUT IN THE PROCEDURE ROOM. UNDER FLUOROSCOPIC GUIDANCE, TARGETS WERE SELECTED AT THE INTERSECTION OF THE RIGHT TRANSVERSE PROCESS OF L4, L5 AND ALA OF S1 WITH ITS RESPECTIVE SUPERIOR ARTICULAR PROCESS. LIDOCAINE WAS USED TO NUMB THE SKIN AND THE SUBCUTANEOUS TISSUE BELOW IT. SPINAL NEEDLE, 22-GAUGE WAS ADVANCED UNDER FLUOROSCOPIC GUIDANCE AND FOLLOWING PATIENT FEEDBACK UNTIL THE TARGETS WERE REACHED. POSITION OF THE NEEDLES WAS VERIFIED WITH AP AND LATERAL VIEWS. AFTER PROPER POSITION OF THE NEEDLES WAS ACHIEVED, ISOVUE-M DYE 30% 0.1 ML WAS INJECTED AT EACH SITE SHOWING ADEQUATE SPREAD OF THE DYE. THEN A SOLUTION OF 0.4 ML OF BUPIVACAINE 0.25% WAS INJECTED AT EACH SITE. THERE WAS NO EVIDENCE OF BLOOD, PARESTHESIA OR CEREBROSPINAL FLUID DURING THE PROCEDURE. THE PATIENT WAS SENT TO THE RECOVERY ROOM. THE PATIENT WAS MOVING THE EXTREMITIES AND DOING WELL. THERE WAS NO COMPLICATION DURING THE PROCEDURE. FLUOROSCOPY TIME WAS 27 SECONDS POST PROCEDURE NOTE THE PATIENT WILL DOCUMENT HIS PAIN LEVEL AND RESPONSE TO THIS PROCEDURE EVERY 30 MINUTES. THE PATIENT WILL BE SEEN IN A FOLLOW UP IN THE NEXT FEW WEEKS. FURTHER DETERMINATION FOR HIS CASE WILL BE DONE AT THE NEXT VISIT. INSTRUCTIONS WERE GIVEN, QUESTIONS WERE ANSWERED, AND THE PATIENT EXPRESSED UNDERSTANDING AND AGREED WITH THE PLAN. I, GABINO BRAVO, DOCUMENTED THE ABOVE INFORMATION ACTING A SCRIBE FOR DR. MEDLEY. I HAVE REVIEWED THE ABOVE DOCUMENT, WRITTEN BY GABINO BRAVO SCRIBKimani AND I VERIFY THAT IT IS ACCURATE. PROCEDURE CODES 35153 INJ PARAVERT F JNT L/S 1 LEV, MODIFIERS: [place] [id number] INJ PARAVERT F JNT L/S 2 LEV, MODIFIERS: RT 6045F RADXPS IN END [id number] PXD DISPOSITION & COMMUNICATION FOLLOW UP 3 WEEKS ELECTRONICALLY SIGNED BY GARRETT MEDLEY MD, MD ON 07/25/2019 AT 01:29 PM EST DISCLAIMER : THIS IS A VISIT SUMMARY EXTRACTED FROM THE [employer] CHART. IT IS NOT A COPY OF THE [employer] PROGRESS NOTE. MTDD
== END ==
LOC: M PAIN 09:00
PROVIDERS: ATTEND Anesthesiology
DX: M47.816 Spondylosis without myelopathy or radiculopathy, lumbar region (principal); M47.817 Spondylosis without myelopathy or radiculopathy, lumbosacral region; E78.5 Hyperlipidemia, unspecified; I10 Essential (primary) hypertension; E11.9 Type 2 diabetes mellitus without complications; K21.9 Gastro-esophageal reflux disease without esophagitis; Z79.4 Long term (current) use of insulin; Z79.891 Long term (current) use of opiate analgesic; Z79.899 Other long term (current) 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; Z79.82 Long term (current) use of aspirin; Z88.8 Allergy status to other drugs, medicaments and biological substances
CPT/HCPCS: 64493; 64494; Q9967

== ENCOUNTER → 2019-07-19 | Outpatient (CLI) | payer MEDICARE, BC, OTHER ==
[~2019-07-19] MED LIST changes: -BUPIVACAINE HCL 0.25% 30 ML VIAL As Ordered ONE; -ISOVUE-M 300 61% 15ML VIAL (Q9967) As Ordered ONE; -LIDOCAINE 1% SDV INJ 30 ML VIAL As Ordered ONE
--- NOTE | 2019-07-21 00:03 | ECWPNPC ---
PATIENT NAME: TYE CLAUDIO : 1950 GENDER: MALE VISIT DATE: 07/19/2019 DISCHARGE DATE: 07/19/19 1104 VISIT LOCKED DATE TIME: PHYSICIAN: LULY JOHNSON RESOURCE: LULY JOHNSON REASON FOR APPOINTMENT 1. POST DX FACET PER DR Hugo ONE WEEK HISTORY OF PRESENT ILLNESS HISTORY OF PRESENT ILLNESS: PAIN THE PATIENT DESCRIBES THE PAIN... 69-YEAR-OLD MALE IN FOR POST DIAGNOSTIC FACET BLOCK #2. HE STATES THAT HE HAD GREATER THAN 80% PAIN RELIEF FOR 4 HOURS STATUS POST PROCEDURE. HE RATES HIS PAIN CURRENTLY AT A 4-9 OUT OF 10 AND DESCRIBES IT ACHING AND STABBING. FALL RISK SCREENING: SCREENING :NO FALLS REPORTED IN THE LAST YEAR CURRENT MEDICATIONS TAKING ASPIRIN 81 81 MG TABLET CHEWABLE 1 TABLET ORALLY ONCE A DAY TAKING ATENOLOL 100 MG TABLET 1 TABLET ORALLY ONCE A DAY TAKING CITALOPRAM HYDROBROMIDE 20 MG TABLET 1 TABLET ORALLY ONCE A DAY TAKING FLONASE 50 MCG/DOSE INHALER 1 SPRAY IN EACH NOSTRIL NASALLY ONCE A DAILY-TAKES NEEDED TAKING HYDROCHLOROTHIAZIDE 25 MG TABLET 1 TABLET IN THE MORNING ORALLY ONCE A DAY TAKING NOVOLOG FLEXPEN 100 UNIT/ML SOLUTION PEN-INJECTOR SLIDING SCALE SUBCUTANEOUS TAKING LANTUS SOLOSTAR 100 UNIT/ML SOLUTION 60 UNITS SUBCUTANEOUS DAILY TAKING LISINOPRIL 40 MG TABLET 1 TABLET ORALLY ONCE A DAY TAKING PANTOPRAZOLE SODIUM 40 MG TABLET DELAYED RELEASE 1 TABLET ORALLY ONCE A DAY TAKING CRESTOR 20 MG TABLET 1 TABLET ORALLY ONCE A DAY TAKING METFORMIN HCL 500 MG TABLET 1 TABLET WITH MEALS ORALLY TWICE A DAY TAKING REMICADE 100 MG SOLUTION RECONSTITUTED 900 MG INTRAVENOUS EVERY 4 WEEKS TAKING IBUPROFEN 600 MG TABLET 1 TABLET WITH FOOD OR MILK NEEDED ORALLY THREE TIMES A DAY TAKING ACETAMINOPHEN 325 MG CAPSULE 1 CAPSULE NEEDED ORALLY EVERY 4 HRS TAKING EMPAGLIFLOZIN 25 MG TABLET 1 TABLET ORALLY ONCE A DAY TAKING GABAPENTIN 600 MG TABLET 1 TABLET ORALLY Q8H TID TAKING TRAMADOL HCL 50 MG TABLET 1 TABLET NEEDED ORALLY Q8H PRN SEVERE PAIN MDD3 TAKING PREDNISONE (BARBIE) 10 MG TABLET DIRECTED ORALLY , NOTES: 4 TABS FOR 3 DAYS, 3 FOR 3 DAYS, 2 FOR 3 DAYS, 1 FOR 3 DAYS TAKING TIZANIDINE HCL 4 MG TABLET 1 TABLET NEEDED ORALLY THREE TIMES A DAY MEDICATION LIST REVIEWED AND RECONCILED WITH THE PATIENT PAST MEDICAL HISTORY HYPERLIPIDEMIA HYPERTENSION DIABETES MELLITUS TYPE 2 ACID REFLUX ARTHRITIS ANKYLOSIS SPONDYLITIS/ ARTHRITIS HEALTH SPEC - SYRAC[place] BACK PAIN ALLERGIES LIPITOR: MUSCLE PAIN - SIDE EFFECTS SURGICAL HISTORY LEFT KNEE SURGERY RIGHT FOOT BUNIONECTOMY FAMILY HISTORY FATHER: , DIAGNOSED WITH DIABETES MOTHER: ALIVE, UNSPECIFIED CEREBRAL ARTERY OCCLUSION WITH CEREBRAL INFARCTION, OTHER SPECIFIED CONDITIONS INFLUENCING HEALTH STATUS 4 SON(S) , 1 DAUGHTER(S) - HEALTHY. MOTHER HAS HISTORY OF ARTHRITIS AND STROKE. SOCIAL HISTORY GENERAL: TOBACCO USE ARE YOU A:NONSMOKER PAIN CLINIC PFS, CLERGY, PUBLIC HEALTH REFERRALS PFS REFERRAL NEEDED?NO CLERGY REFERRAL NEEDED?NO PUBLIC HEALTH REFERRAL NEEDED?NO WAS THE PROVIDER NOTIFIED OF ANY PERTINENT INFO? N/A HAS THE PATIENT BEEN EDUCATED REGARDING HIS/HER PLAN OF CARE?YES HAS THE PATIENT BEEN EDUCATED REGARDING PAIN, THE RISK FOR PAIN, THE IMPORTANCE OF EFFECTIVE PAIN MANAGEMENT, AND THE PAIN ASSESSMENT PROCESS?YES LATEX QUESTIONNAIRE LATEX ALLERGY : HAVE YOU EVER DEVELOPED ANY TYPE OF REACTION AFTER HANDLING LATEX PRODUCTS SUCH RUBBER GLOVES, CONDOMS, DIAPHRAGMS, BALLOONS, SOCKS, OR UNDERWEAR?NO LATEX ALLERGY : HAVE YOU EVER DEVELOPED ANY TYPE OF REACTION DURING OR AFTER DENTAL APPOINTMENT, VAGINAL/RECTAL EXAMINATION, SURGICAL PROCEDURE, OR ANY OTHER EXPOSURE?NO LATEX RISK : HAVE YOU EVER HAD ANY DIFFICULTY BREATHING OR HIVES AFTER EATING OR HANDLING ANY FRUITS, OR VEGETABLES; SUCH KIWI, BANANAS, STONE FRUITS, OR CHESTNUTSNO LATEX RISK : DO YOU HAVE A PREVIOUS PERSONAL HISTORY OF MORE THAN NINE SURGERIES, SPINA BIFIDA, OR REPEATED CATHERIZATIONS? NO LATEX RISK : ARE YOU FREQUENTLY EXPOSED TO LATEX PRODUCTS IN YOUR OCCUPATION?NO DATE ASKED : 05/23/2019 CAFFEINE CAFFEINE USE?YES COFFEE DAILY ADVANCE DIRECTIVE ADVANCE DIRECTIVE DISCUSSED WITH PATIENT:YES PT DOES NOT HAVE ANY ADVANCED DIRECTIVES AND HE DECLINES INFORMATION ON HCP AT THIS TIME, STATES THAT HE HAS THE INFORMATION AT HOME. ASSISTANCE OFFERED IN COMPLETING HCP IF NEEDED. MORMONISM [id number] CONGREGATION LANGUAGE LANGUAGES SPOKEN:SRI LANKAN DOMESTIC VIOLENCE DO YOU FEEL SAFE IN YOUR ENVIRONMENT?YES ALCOHOL SCREENING DID YOU HAVE A DRINK CONTAINING ALCOHOL IN THE PAST YEAR?YES HOW OFTEN DID YOU HAVE SIX OR MORE DRINKS ON ONE OCCASION IN THE PAST YEAR?NEVER (0 POINTS) HOW MANY DRINKS DID YOU HAVE ON A TYPICAL DAY WHEN YOU WERE DRINKING IN THE PAST YEAR?1 OR 2 (0 POINTS) HOW OFTEN DID YOU HAVE A DRINK CONTAINING ALCOHOL IN THE PAST YEAR?TWO TO FOUR TIMES A MONTH (2 POINTS) POINTS2 INTERPRETATIONNEGATIVE RECREATIONAL DRUG USE DRUG USE?NO LEARNING BARRIERS / SPECIAL NEEDS BARRIERS TO LEARNING?NO HEARING IMPAIRED?NO VISION IMPAIRED?YES COGNITIVELY IMPAIRED?NO :CORRECTIVE LENSES READINESS TO LEARN?YES LEARNING PREFERENCES?YES :DEMONSTRATION/VERBAL INSTRUCTION LEARNING CAPABILITIES PRESENT?YES EMOTIONAL BARRIERS?NO SPECIAL DEVICES?NO CDA TEACHER NEEDED?NO REVIEWED 02/23/18 0945 LAS06/01/18 0905 REVIEWED WITH PT. ADREVIEWED WITH PT 06/23/18 1032 BV09/15/18 REVIEWED WITH PT. ADREVIEWED WITH PT 10/11/18 1130REVIEWED WITH PATIENT 06/06/2019 LASREVIEWED WITH PATIENT 12/28/18 0924 JS11/17/18 REVIEWED WITH PT.REVIEWED WITH PATIENT 07/13/19 0916 NLJREVIEWED WITH PATIENT 07/19/19 1018 JS. HOSPITALIZATION/MAJOR DIAGNOSTIC PROCEDURE KNEE SURG REVIEW OF SYSTEMS REVIEWED BY: PROVIDER: CARLI CALVIN-C . CONSTITUTIONAL: ANY CHANGE IN YOUR MEDICAL CONDITION? NO . CHILLS NO . FEVER NO . INFECTION: DO YOU HAVE NEW INFECTIONS? NO . DO YOU HAVE HISTORY OF MRSA? NO . MUSCULOSKELETAL: ANY NEW PATTERNS OF PAIN OR NUMBNESS? NO . GASTROENTEROLOGY: ANY NEW CHANGE IN BOWEL CONTROL? NO . GENITOURINARY: ANY NEW CHANGE IN BLADDER CONTROL? NO . IS THERE A CHANCE YOU COULD BE ? NO . HEMATOLOGY/LYMPH: DO YOU TAKE ANY BLOOD THINNERS? (FOR EXAMPLE- COUMADIN, PLAVIX, AGGRENOX, PLATEL, PRADAXA, OR XARELTO) NO . WHEN WAS YOUR LAST DOSE? DATE: TIME: . NEUROLOGY: HAVE YOU FALLEN IN THE PAST 12 MONTHS? NO . ANY NEW EXTREMITY NUMBNESS OR WEAKNESS? NO . CARDIOLOGY: DO YOU HAVE A PACEMAKER OR DEFIBRILLATOR? NO . RESPIRATORY: HAVE YOU BEEN SICK IN THE PAST WEEK? NO . FEVER NO . FLU LIKE SYMPTOMS? NO . COUGH NO . INTEGUMENTARY: DO YOU HAVE ANY RASHES OR OPEN SORES? NO . ALLERGIC/IMMUNO: ARE YOU ALLERGIC TO IV DYE? NO . ANY NEW ALLERGIES? NO . PSYCHIATRIC: DO YOU HAVE THOUGHTS OF HURTING YOURSELF OR SOMEONE ELSE? NO . ARE YOU ABUSED, NEGLECTED, OR IN AN UNSAFE ENVIRONMENT? NO . ENDOCRINOLOGY: ARE YOU DIABETIC? YES . OTHER: DO YOU NEED ANY PRESCRIPTIONS? NO . IF YES, PLEASE LIST: ____ . ANY NEW PROBLEMS WITH YOUR MEDICATIONS? NO . WHEN DID YOU LAST EAT? ____ . WHEN DID YOU LAST DRINK? ____ . WHAT DID YOU LAST DRINK? ____ . NAME OF PERSON DRIVING YOU HOME? ____ . DO YOU HAVE ANY OTHER QUESTIONS OR CONCERNS NO . VITAL SIGNS WT 250.0 LBS, HT 70 IN, BMI 35.87 INDEX, BP 133/75 MM HG, HR 79 /MIN, RR 18 /MIN, TEMP 97.5 F, OXYGEN SAT % 97%, SAFE IN ENV? (Y/N) YES, NA INITIALS AW 1024, REVIEWED BY: HUMERA. EXAMINATION GENERAL EXAMINATION: GENERALNO ACUTE DISTRESS, WELL NOURISHED AND HYDRATED. PSYCHAPPROPRIATE MOOD AND AFFECT . LUNGS:CLEAR TO AUSCULTATION BILATERALLY, NO WHEEZES, RHONCHI, RALES. HEART:NO MURMURS, REGULAR RATE AND RHYTHM. ASSESSMENTS SPONDYLOSIS OF LUMBOSACRAL REGION WITHOUT MYELOPATHY OR RADICULOPATHY - M47.817 (PRIMARY) TREATMENT SPONDYLOSIS OF LUMBOSACRAL REGION WITHOUT MYELOPATHY OR RADICULOPATHY NOTES: RF PROCEDURE RIGHT SIDE L4-L5 L5-S1. CLINICAL NOTES: 69-YEAR-OLD MALE IN FOR DIAGNOSTIC FACET BLOCK FOLLOW-UP. GIVEN PRESENTING SYMPTOMS AND RESULTS OF PHYSICAL EXAMINATION RECOMMENDED GOING AHEAD WITH RF PROCEDURE. PATIENT HAS EXPRESSED UNDERSTANDING OF AND WAS IN AGREEMENT WITH TREATMENT PLAN. GIVEN TIME TO ASK QUESTIONS AND EXPRESS CONCERNS. OTHERS NOTES: RADIOFREQUENCY ABLATION MATERIAL WAS PRINTED. PREVENTIVE MEDICINE PAIN CLINIC TEACHING: PROCEDURE TEACHING PRINTED AND REVIEWED INFORMATION ON RADIOFREQUENCY PROCEDURE WITH PATIENT. ALSO REVIEWED PRE-PROCEDURE INSTRUCTIONS. PATIENT VERBALIZED AN UNDERSTANDING. ANA TAPIA 07/19/2019 11:04:27 AM > . PROCEDURE CODES FA211 ESTABILISHED PATIENT [facility] FACILITY CHARGE DISPOSITION & COMMUNICATION FOLLOW UP POSTPROCEDURE (REASON: RF PROCEDURE RIGHT SIDE L4-L5 L5-S1) ELECTRONICALLY SIGNED BY MARIXA SANDRA ON 07/20/2019 AT 09:08 AM EST DISCLAIMER : THIS IS A VISIT SUMMARY EXTRACTED FROM THE [employer] CHART. IT IS NOT A COPY OF THE [employer] PROGRESS NOTE. MYNOR
== END ==
LOC: M PAIN 10:15
PROVIDERS: ATTEND Family Medicine
DX: M47.817 Spondylosis without myelopathy or radiculopathy, lumbosacral region (principal); E78.5 Hyperlipidemia, unspecified; I10 Essential (primary) hypertension; E11.9 Type 2 diabetes mellitus without complications; K21.9 Gastro-esophageal reflux disease without esophagitis; Z88.8 Allergy status to other drugs, medicaments and biological substances; Z79.82 Long term (current) use of aspirin; Z79.4 Long term (current) use of insulin; Z79.899 Other long term (current) 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

== ENCOUNTER → 2019-08-21 | Outpatient (CLI) | payer MEDICARE, BC, OTHER ==
[~2019-08-21] MED LIST changes: +BUPIVACAINE HCL 0.25% 30 ML VIAL As Ordered ONE; +ISOVUE-M 300 61% 15ML VIAL (Q9967) As Ordered ONE; +LIDOCAINE 1% SDV INJ 30 ML VIAL As Ordered ONE; +TRIAMCINOLONE ACETONIDE SUSP 40 MG/ML VIAL (J3301) As Ordered ONE
--- NOTE | 2019-08-21 13:05 | REP ---
Three fluoroscopic images: 08/21/2019. Indication: Intraoperative guidance. Findings: Three fluoroscopic images were provided for intraoperative guidance of the lower lumbar spine. Please see operative report for details. Impression: 24 seconds of fluoroscopy provided for intraoperative guidance. Electronically Signed by Raffy Mckeon DO 08/21/2019 12:56 P
--- NOTE | 2019-08-23 02:38 | ECWPNPC ---
PATIENT NAME: TYE CLAUDIO : 1950 GENDER: MALE VISIT DATE: 08/21/2019 DISCHARGE DATE: 08/21/19 1238 VISIT LOCKED DATE TIME: PHYSICIAN: GARRETT MEDLEY MD RESOURCE: GARRETT MEDLEY MD REASON FOR APPOINTMENT 1. RF RIGHT SIDE L4-L5 L5-S1 HISTORY OF PRESENT ILLNESS HISTORY OF PRESENT ILLNESS: PAIN THE PATIENT DESCRIBES THE PAIN... FALL RISK SCREENING: SCREENING :NO FALLS REPORTED IN THE LAST YEAR CURRENT MEDICATIONS TAKING ASPIRIN 81 81 MG TABLET CHEWABLE 1 TABLET ORALLY ONCE A DAY, NOTES: 2099 TAKING ATENOLOL 100 MG TABLET 1 TABLET ORALLY ONCE A DAY, NOTES: 08-20-192099 TAKING CITALOPRAM HYDROBROMIDE 20 MG TABLET 1 TABLET ORALLY ONCE A DAY, NOTES: 08-20-19899 TAKING FLONASE 50 MCG/DOSE INHALER 1 SPRAY IN EACH NOSTRIL NASALLY ONCE A DAILY-TAKES NEEDED, NOTES: NOT LATELY TAKING HYDROCHLOROTHIAZIDE 25 MG TABLET 1 TABLET IN THE MORNING ORALLY ONCE A DAY, NOTES: 08-20-19799 TAKING NOVOLOG FLEXPEN 100 UNIT/ML SOLUTION PEN-INJECTOR SLIDING SCALE SUBCUTANEOUS , NOTES: 08-20-19 TAKING LANTUS SOLOSTAR 100 UNIT/ML SOLUTION 60 UNITS SUBCUTANEOUS DAILY, NOTES: 08-20-192099 TAKING LISINOPRIL 40 MG TABLET 1 TABLET ORALLY ONCE A DAY, NOTES: 699 TAKING PANTOPRAZOLE SODIUM 40 MG TABLET DELAYED RELEASE 1 TABLET ORALLY ONCE A DAY, NOTES: 08-20-19699 TAKING CRESTOR 20 MG TABLET 1 TABLET ORALLY ONCE A DAY, NOTES: 08-20-19699 TAKING METFORMIN HCL 500 MG TABLET 1 TABLET WITH MEALS ORALLY TWICE A DAY, NOTES: 799 TAKING REMICADE 100 MG SOLUTION RECONSTITUTED 900 MG INTRAVENOUS EVERY 4 WEEKS, NOTES: 07-21-19899 TAKING IBUPROFEN 600 MG TABLET 1 TABLET WITH FOOD OR MILK NEEDED ORALLY THREE TIMES A DAY, NOTES: 08-20-19799 TAKING ACETAMINOPHEN 325 MG CAPSULE 1 CAPSULE NEEDED ORALLY EVERY 4 HRS, NOTES: 08-20-19899 TAKING EMPAGLIFLOZIN 25 MG TABLET 1 TABLET ORALLY ONCE A DAY, NOTES: 08-20-19 TAKING GABAPENTIN 600 MG TABLET 1 TABLET ORALLY Q8H TID, NOTES: 12-15-19 21`00 TAKING TRAMADOL HCL 50 MG TABLET 1 TABLET NEEDED ORALLY Q8H PRN SEVERE PAIN MDD3, NOTES: 08-20-192099 TAKING TIZANIDINE HCL 2 MG TABLET 1 TABLET NEEDED ORALLY THREE TIMES A DAY PRN, NOTES: 08-20-192099 MEDICATION LIST REVIEWED AND RECONCILED WITH THE PATIENT PAST MEDICAL HISTORY HYPERLIPIDEMIA HYPERTENSION DIABETES MELLITUS TYPE 2 ACID REFLUX ARTHRITIS ANKYLOSIS SPONDYLITIS/ ARTHRITIS HEALTH SPEC - SYRACUSE BACK PAIN ALLERGIES LIPITOR: MUSCLE PAIN - SIDE EFFECTS SURGICAL HISTORY LEFT KNEE SURGERY RIGHT FOOT BUNIONECTOMY FAMILY HISTORY FATHER: , DIAGNOSED WITH DIABETES MOTHER: ALIVE, UNSPECIFIED CEREBRAL ARTERY OCCLUSION WITH CEREBRAL INFARCTION, OTHER SPECIFIED CONDITIONS INFLUENCING HEALTH STATUS 4 SON(S) , 1 DAUGHTER(S) - HEALTHY. MOTHER HAS HISTORY OF ARTHRITIS AND STROKE. SOCIAL HISTORY GENERAL: TOBACCO USE ARE YOU A:NONSMOKER PAIN CLINIC PFS, CLERGY, PUBLIC HEALTH REFERRALS PFS REFERRAL NEEDED?NO CLERGY REFERRAL NEEDED?NO PUBLIC HEALTH REFERRAL NEEDED?NO WAS THE PROVIDER NOTIFIED OF ANY PERTINENT INFO? N/A HAS THE PATIENT BEEN EDUCATED REGARDING HIS/HER PLAN OF CARE?YES HAS THE PATIENT BEEN EDUCATED REGARDING PAIN, THE RISK FOR PAIN, THE IMPORTANCE OF EFFECTIVE PAIN MANAGEMENT, AND THE PAIN ASSESSMENT PROCESS?YES LATEX QUESTIONNAIRE LATEX ALLERGY : HAVE YOU EVER DEVELOPED ANY TYPE OF REACTION AFTER HANDLING LATEX PRODUCTS SUCH RUBBER GLOVES, CONDOMS, DIAPHRAGMS, BALLOONS, SOCKS, OR UNDERWEAR?NO LATEX ALLERGY : HAVE YOU EVER DEVELOPED ANY TYPE OF REACTION DURING OR AFTER DENTAL APPOINTMENT, VAGINAL/RECTAL EXAMINATION, SURGICAL PROCEDURE, OR ANY OTHER EXPOSURE?NO LATEX RISK : HAVE YOU EVER HAD ANY DIFFICULTY BREATHING OR HIVES AFTER EATING OR HANDLING ANY FRUITS, OR VEGETABLES; SUCH KIWI, BANANAS, STONE FRUITS, OR CHESTNUTSNO LATEX RISK : DO YOU HAVE A PREVIOUS PERSONAL HISTORY OF MORE THAN NINE SURGERIES, SPINA BIFIDA, OR REPEATED CATHERIZATIONS? NO LATEX RISK : ARE YOU FREQUENTLY EXPOSED TO LATEX PRODUCTS IN YOUR OCCUPATION?NO DATE ASKED : 08/11/2019 CAFFEINE CAFFEINE USE?YES COFFEE DAILY ADVANCE DIRECTIVE ADVANCE DIRECTIVE DISCUSSED WITH PATIENT:YES PT DOES NOT HAVE ANY ADVANCED DIRECTIVES AND HE DECLINES INFORMATION ON HCP AT THIS TIME, STATES THAT HE HAS THE INFORMATION AT HOME. ASSISTANCE OFFERED IN COMPLETING HCP IF NEEDED. HINDUISM [id number] YAZIDISM LANGUAGE LANGUAGES SPOKEN:UKRAINIAN DOMESTIC VIOLENCE DO YOU FEEL SAFE IN YOUR ENVIRONMENT?YES ALCOHOL SCREENING DID YOU HAVE A DRINK CONTAINING ALCOHOL IN THE PAST YEAR?YES HOW OFTEN DID YOU HAVE SIX OR MORE DRINKS ON ONE OCCASION IN THE PAST YEAR?NEVER (0 POINTS) HOW MANY DRINKS DID YOU HAVE ON A TYPICAL DAY WHEN YOU WERE DRINKING IN THE PAST YEAR?1 OR 2 (0 POINTS) HOW OFTEN DID YOU HAVE A DRINK CONTAINING ALCOHOL IN THE PAST YEAR?TWO TO FOUR TIMES A MONTH (2 POINTS) POINTS2 INTERPRETATIONNEGATIVE RECREATIONAL DRUG USE DRUG USE?NO LEARNING BARRIERS / SPECIAL NEEDS BARRIERS TO LEARNING?NO HEARING IMPAIRED?NO VISION IMPAIRED?YES :CORRECTIVE LENSES COGNITIVELY IMPAIRED?NO READINESS TO LEARN?YES LEARNING PREFERENCES?YES :DEMONSTRATION/VERBAL INSTRUCTION LEARNING CAPABILITIES PRESENT?YES EMOTIONAL BARRIERS?NO SPECIAL DEVICES?NO ASSISTANT PROFESSOR OF CHEMISTRY NEEDED?NO REVIEWED 02/23/18 0945 LAS06/01/18 0905 REVIEWED WITH PT. ADREVIEWED WITH PT 06/23/18 1032 BV09/15/18 REVIEWED WITH PT. ADREDUINIEWED WITH PT 10/11/18 1130PRE PROCEDURE SCREENING DONE 08/11/19 EMREVIEWED WITH PATIENT 06/06/2019 LASREVIEWED WITH PATIENT 12/28/18 0924 JS11/17/18 REVIEWED WITH PT.REVIEWED WITH PATIENT 07/13/19 0916 NLJREVIEWED WITH PATIENT 07/19/19 1018 JS. HOSPITALIZATION/MAJOR DIAGNOSTIC PROCEDURE KNEE SURG REVIEW OF SYSTEMS REVIEWED BY: PROVIDER: . CONSTITUTIONAL: ANY CHANGE IN YOUR MEDICAL CONDITION? NO . CHILLS NO . FEVER NO . INFECTION: DO YOU HAVE NEW INFECTIONS? NO . DO YOU HAVE HISTORY OF MRSA? NO . MUSCULOSKELETAL: ANY NEW PATTERNS OF PAIN OR NUMBNESS? NO . GASTROENTEROLOGY: ANY NEW CHANGE IN BOWEL CONTROL? NO . GENITOURINARY: ANY NEW CHANGE IN BLADDER CONTROL? NO . IS THERE A CHANCE YOU COULD BE ? NO . HEMATOLOGY/LYMPH: DO YOU TAKE ANY BLOOD THINNERS? (FOR EXAMPLE- COUMADIN, PLAVIX, AGGRENOX, PLATEL, PRADAXA, OR XARELTO) NO . WHEN WAS YOUR LAST DOSE? DATE: TIME: . NEUROLOGY: HAVE YOU FALLEN IN THE PAST 12 MONTHS? NO . ANY NEW EXTREMITY NUMBNESS OR WEAKNESS? NO . CARDIOLOGY: DO YOU HAVE A PACEMAKER OR DEFIBRILLATOR? NO . RESPIRATORY: HAVE YOU BEEN SICK IN THE PAST WEEK? NO . FEVER NO . FLU LIKE SYMPTOMS? NO . COUGH NO . INTEGUMENTARY: DO YOU HAVE ANY RASHES OR OPEN SORES? NO . ALLERGIC/IMMUNO: ARE YOU ALLERGIC TO IV DYE? NO . ANY NEW ALLERGIES? NO . PSYCHIATRIC: DO YOU HAVE THOUGHTS OF HURTING YOURSELF OR SOMEONE ELSE? NO . ARE YOU ABUSED, NEGLECTED, OR IN AN UNSAFE ENVIRONMENT? NO . ENDOCRINOLOGY: ARE YOU DIABETIC? YES 117 THIS AM . OTHER: DO YOU NEED ANY PRESCRIPTIONS? NO . IF YES, PLEASE LIST: ____ . ANY NEW PROBLEMS WITH YOUR MEDICATIONS? NO . WHEN DID YOU LAST EAT? ____[phone] . WHEN DID YOU LAST DRINK? ____[phone] 8 PM . WHAT DID YOU LAST DRINK? ____WATER . NAME OF PERSON DRIVING YOU HOME? ____ . DO YOU HAVE ANY OTHER QUESTIONS OR CONCERNS NO . VITAL SIGNS WT 248.6 LBS, HT 70 IN, BMI 35.67 INDEX, BP 119/67 MM HG, HR 82 /MIN, RR 18 /MIN, TEMP 96.9 F, OXYGEN SAT % 96%, SAFE IN ENV? (Y/N) YES, NA INITIALS SC 10:09, REVIEWED BY: KG. ASSESSMENTS SPONDYLOSIS WITHOUT MYELOPATHY OR RADICULOPATHY, LUMBAR REGION - M47.816 (PRIMARY) SPONDYLOSIS OF LUMBOSACRAL REGION WITHOUT MYELOPATHY OR RADICULOPATHY - M47.817 TREATMENT SPONDYLOSIS OF LUMBOSACRAL REGION WITHOUT MYELOPATHY OR RADICULOPATHY SMC FACET BLOCK (PAIN)[id number] PROCEDURES PN RADIOFREQUENCY PRE PROCEDURE DIAGNOSES 1. LUMBAR SPONDYLOSIS. 2. LUMBOSACRAL SPONDYLOSIS POST PROCEDURE DIAGNOSES 1. LUMBAR SPONDYLOSIS. 2. LUMBOSACRAL SPONDYLOSIS PROCEDURE RIGHT L4-L5 AND RIGHT L5-S1 LUMBAR FACET RADIOFREQUENCY SURGEON DR. GARRETT MEDLEY STRIP MINE SUPERVISOR NONE ANESTHESIA LOCAL PRE PROCEDURE REPORT THE PATIENT HAS HISTORY OF CHRONIC LOW BACK PAIN. I EVALUATED THE PATIENT AND REVIEWED THE CHART. I WENT OVER THE RISKS, ALTERNATIVES, AND BENEFITS ASSOCIATED WITH THIS PROCEDURE. THE PATIENT WOULD LIKE TO PROCEED AND GIVES CONSENT TO PERFORM THE PROCEDURE. THE PATIENT DENIES UNEXPLAINABLE WEIGHT LOSS, FEVER, CHILLS, OR NEW CHANGES IN URINARY OR BOWEL CONTROL DESCRIPTION OF PROCEDURE THE PATIENT WAS BROUGHT TO THE PROCEDURE ROOM AND PLACED IN THE PRONE POSITION. THE LUMBOSACRAL AREA WAS CLEANED WITH CHLORAPREP SOLUTION AND DRAPED ASEPTICALLY. THE PROCEDURE WAS DONE UNDER STERILE CONDITIONS. I CHECKED LATERALITY AND THE LEVEL WHERE THE PROCEDURE WAS GOING TO BE PERFORMED WITH THE PATIENT AND THE SUPPORTING STAFF AT THE MOMENT OF THE TIME OUT IN THE PROCEDURE ROOM. UNDER FLUOROSCOPIC GUIDANCE, TARGETS WERE SELECTED AT THE INTERSECTION OF THE RIGHT TRANSVERSE PROCESS OF L4, L5 AND ALA OF S1 WITH ITS RESPECTIVE SUPERIOR ARTICULAR PROCESS. LIDOCAINE WAS USED TO NUMB THE SKIN AND THE SUBCUTANEOUS TISSUE BELOW IT. RADIOFREQUENCY NEEDLES 22-GAUGE 15 CM LONG WITH 10 MM ACTIVE CURVE TIP WERE ADVANCED UNDER FLUOROSCOPIC GUIDANCE AND FOLLOWING PATIENT FEEDBACK UNTIL THE TARGET AREA WAS REACHED. POSITION OF THE NEEDLES WAS VERIFIED WITH AP AND LATERAL VIEWS. AFTER PROPER POSITION OF THE NEEDLE WAS ACHIEVED, WE WORKED WITH THE RIGHT SELECTED MEDIAN BRANCHES OF L3, L4 AND THE DORSAL RAMI OF L5. WE MEASURED THE CORRESPONDING IMPEDANCES, SENSORY STIMULATION AND MOTOR RESPONSES INDICATED IN THE RADIOFREQUENCY WORKSHEET. POSITION OF THE NEEDLES WAS VERIFIED AGAIN WITH AP AND LATERAL VIEWS. LIDOCAINE 1%, 2 ML, WAS INJECTED AT EACH LEVEL. RADIOFREQUENCY WAS DONE AT EACH LEVEL AT 80 DEGREES FOR 90 SECONDS. AFTER RADIOFREQUENCY WAS DONE, THE PATIENT RECEIVED BUPIVACAINE 0.125% 1 CC WITH KENALOG 5 MG AT EACH SITE. THERE WAS NO EVIDENCE OF BLOOD, PARESTHESIA OR CEREBROSPINAL FLUID DURING THE PROCEDURE. THE PATIENT WAS SENT TO THE RECOVERY ROOM. THE PATIENT WAS MOVING THE EXTREMITIES AND DOING WELL. THERE WAS NO COMPLICATION DURING THE PROCEDURE. FLUOROSCOPY TIME WAS 24 SECONDS POST PROCEDURE NOTE I AM LOOKING FOR LONG LASTING PAIN RELIEF WITH THIS INTERVENTION. THE PATIENT WILL BE SEEN IN A FOLLOW UP IN THE NEXT FEW WEEKS. INSTRUCTIONS WERE GIVEN, QUESTIONS WERE ANSWERED, AND THE PATIENT EXPRESSED UNDERSTANDING AND AGREES WITH THE PLAN. I, GABINO BRAVO, DOCUMENTED THE ABOVE INFORMATION ACTING A SCRIBE FOR DR. MEDLEY. I HAVE REVIEWED THE ABOVE DOCUMENT, WRITTEN BY GABINO BRAVO SCRIBE AND I VERIFY THAT IT IS ACCURATE. PROCEDURE CODES 90543 DESTROY LUMB/SAC FACET JNT, MODIFIERS: RT [address]12 DESTROY L/S FACET JNT ADDL, MODIFIERS: RT 6045F RADXPS IN END [id number] PXD DISPOSITION & COMMUNICATION FOLLOW UP 3 WEEKS ELECTRONICALLY SIGNED BY GARRETT MEDLEY MD, MD ON 08/22/2019 AT 05:20 PM EST DISCLAIMER : THIS IS A VISIT SUMMARY EXTRACTED FROM THE [employer] CHART. IT IS NOT A COPY OF THE [employer] PROGRESS NOTE. MTDD
== END ==
LOC: M PAIN 10:00
PROVIDERS: ATTEND Anesthesiology
DX: M47.816 Spondylosis without myelopathy or radiculopathy, lumbar region (principal); M47.817 Spondylosis without myelopathy or radiculopathy, lumbosacral region; E78.5 Hyperlipidemia, unspecified; I10 Essential (primary) hypertension; E11.9 Type 2 diabetes mellitus without complications; K21.9 Gastro-esophageal reflux disease without esophagitis; Z88.8 Allergy status to other drugs, medicaments and biological substances; Z79.82 Long term (current) use of aspirin; Z79.4 Long term (current) use of insulin; Z79.899 Other long term (current) 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
CPT/HCPCS: 64635; 64636; J3301; Q9967

== ENCOUNTER → 2019-09-07 | Outpatient (CLI) | payer MEDICARE, BC, OTHER ==
[~2019-09-07] MED LIST changes: -BUPIVACAINE HCL 0.25% 30 ML VIAL As Ordered ONE; -ISOVUE-M 300 61% 15ML VIAL (Q9967) As Ordered ONE; -LIDOCAINE 1% SDV INJ 30 ML VIAL As Ordered ONE; -TRIAMCINOLONE ACETONIDE SUSP 40 MG/ML VIAL (J3301) As Ordered ONE
--- NOTE | 2019-09-09 01:43 | ECWPNPC ---
PATIENT NAME: TYE CLAUDIO : 1950 GENDER: MALE VISIT DATE: 09/07/2019 DISCHARGE DATE: 09/07/19 1120 VISIT LOCKED DATE TIME: PHYSICIAN: LULY JOHNSON RESOURCE: LULY JOHNSON REASON FOR APPOINTMENT 1. POST RF HISTORY OF PRESENT ILLNESS HISTORY OF PRESENT ILLNESS: PAIN THE PATIENT DESCRIBES THE PAIN... 69-YEAR-OLD MALE IN FOR POST RF PROCEDURE. HE RATES HIS PAIN PREPROCEDURE AT AN 8-9 OUT OF 10 AND POSTPROCEDURE AT A 1-2 OUT OF 10. HE FEELS THE PROCEDURE WORKED WELL OVERALL AND CONTINUES TO DO SO TODAY. HE RATES PAIN CURRENTLY AT A 2 OUT OF 10 AND DESCRIBES IT SORE. FALL RISK SCREENING: SCREENING :NO FALLS REPORTED IN THE LAST YEAR CURRENT MEDICATIONS TAKING ASPIRIN 81 81 MG TABLET CHEWABLE 1 TABLET ORALLY ONCE A DAY TAKING ATENOLOL 100 MG TABLET 1 TABLET ORALLY ONCE A DAY TAKING CITALOPRAM HYDROBROMIDE 20 MG TABLET 1 TABLET ORALLY ONCE A DAY TAKING FLONASE 50 MCG/DOSE INHALER 1 SPRAY IN EACH NOSTRIL NASALLY ONCE A DAILY-TAKES NEEDED TAKING HYDROCHLOROTHIAZIDE 25 MG TABLET 1 TABLET IN THE MORNING ORALLY ONCE A DAY TAKING NOVOLOG FLEXPEN 100 UNIT/ML SOLUTION PEN-INJECTOR SLIDING SCALE SUBCUTANEOUS TAKING LANTUS SOLOSTAR 100 UNIT/ML SOLUTION 60 UNITS SUBCUTANEOUS DAILY TAKING LISINOPRIL 40 MG TABLET 1 TABLET ORALLY ONCE A DAY TAKING PANTOPRAZOLE SODIUM 40 MG TABLET DELAYED RELEASE 1 TABLET ORALLY ONCE A DAY TAKING CRESTOR 20 MG TABLET 1 TABLET ORALLY ONCE A DAY TAKING METFORMIN HCL 500 MG TABLET 1 TABLET WITH MEALS ORALLY TWICE A DAY TAKING REMICADE 100 MG SOLUTION RECONSTITUTED 900 MG INTRAVENOUS EVERY 4 WEEKS TAKING IBUPROFEN 600 MG TABLET 1 TABLET WITH FOOD OR MILK NEEDED ORALLY THREE TIMES A DAY TAKING ACETAMINOPHEN 325 MG CAPSULE 1 CAPSULE NEEDED ORALLY EVERY 4 HRS TAKING EMPAGLIFLOZIN 25 MG TABLET 1 TABLET ORALLY ONCE A DAY TAKING GABAPENTIN 600 MG TABLET 1 TABLET ORALLY Q8H TID NOT-TAKING TRAMADOL HCL 50 MG TABLET 1 TABLET NEEDED ORALLY Q8H PRN SEVERE PAIN MDD3 NOT-TAKING TIZANIDINE HCL 2 MG TABLET 1 TABLET NEEDED ORALLY THREE TIMES A DAY PRN MEDICATION LIST REVIEWED AND RECONCILED WITH THE PATIENT PAST MEDICAL HISTORY HYPERLIPIDEMIA HYPERTENSION DIABETES MELLITUS TYPE 2 ACID REFLUX ARTHRITIS ANKYLOSIS SPONDYLITIS/ ARTHRITIS HEALTH SPEC - S[place]AC[place] BACK PAIN ALLERGIES LIPITOR: MUSCLE PAIN - SIDE EFFECTS SURGICAL HISTORY LEFT KNEE SURGERY RIGHT FOOT BUNIONECTOMY FAMILY HISTORY FATHER: , DIAGNOSED WITH DIABETES MOTHER: ALIVE, OTHER SPECIFIED CONDITIONS INFLUENCING HEALTH STATUS, UNSPECIFIED CEREBRAL ARTERY OCCLUSION WITH CEREBRAL INFARCTION 4 SON(S) , 1 DAUGHTER(S) - HEALTHY. MOTHER HAS HISTORY OF ARTHRITIS AND STROKE. SOCIAL HISTORY GENERAL: TOBACCO USE ARE YOU A:NONSMOKER PAIN CLINIC PFS, CLERGY, PUBLIC HEALTH REFERRALS PFS REFERRAL NEEDED?NO CLERGY REFERRAL NEEDED?NO PUBLIC HEALTH REFERRAL NEEDED?NO WAS THE PROVIDER NOTIFIED OF ANY PERTINENT INFO? N/A HAS THE PATIENT BEEN EDUCATED REGARDING HIS/HER PLAN OF CARE?YES HAS THE PATIENT BEEN EDUCATED REGARDING PAIN, THE RISK FOR PAIN, THE IMPORTANCE OF EFFECTIVE PAIN MANAGEMENT, AND THE PAIN ASSESSMENT PROCESS?YES LATEX QUESTIONNAIRE LATEX ALLERGY : HAVE YOU EVER DEVELOPED ANY TYPE OF REACTION AFTER HANDLING LATEX PRODUCTS SUCH RUBBER GLOVES, CONDOMS, DIAPHRAGMS, BALLOONS, SOCKS, OR UNDERWEAR?NO LATEX ALLERGY : HAVE YOU EVER DEVELOPED ANY TYPE OF REACTION DURING OR AFTER DENTAL APPOINTMENT, VAGINAL/RECTAL EXAMINATION, SURGICAL PROCEDURE, OR ANY OTHER EXPOSURE?NO DATE ASKED : 08/11/2019 LATEX RISK : HAVE YOU EVER HAD ANY DIFFICULTY BREATHING OR HIVES AFTER EATING OR HANDLING ANY FRUITS, OR VEGETABLES; SUCH KIWI, BANANAS, STONE FRUITS, OR CHESTNUTSNO LATEX RISK : DO YOU HAVE A PREVIOUS PERSONAL HISTORY OF MORE THAN NINE SURGERIES, SPINA BIFIDA, OR REPEATED CATHERIZATIONS? NO LATEX RISK : ARE YOU FREQUENTLY EXPOSED TO LATEX PRODUCTS IN YOUR OCCUPATION?NO CAFFEINE CAFFEINE USE?YES COFFEE DAILY ADVANCE DIRECTIVE ADVANCE DIRECTIVE DISCUSSED WITH PATIENT:YES PT DOES NOT HAVE ANY ADVANCED DIRECTIVES AND HE DECLINES INFORMATION ON HCP AT THIS TIME, STATES THAT HE HAS THE INFORMATION AT HOME. ASSISTANCE OFFERED IN COMPLETING HCP IF NEEDED. YAZDANISM [id number] CHURCH LANGUAGE LANGUAGES SPOKEN:TURKS AND [place] ISLANDER DOMESTIC VIOLENCE DO YOU FEEL SAFE IN YOUR ENVIRONMENT?YES ALCOHOL SCREENING DID YOU HAVE A DRINK CONTAINING ALCOHOL IN THE PAST YEAR?YES HOW OFTEN DID YOU HAVE SIX OR MORE DRINKS ON ONE OCCASION IN THE PAST YEAR?NEVER (0 POINTS) HOW MANY DRINKS DID YOU HAVE ON A TYPICAL DAY WHEN YOU WERE DRINKING IN THE PAST YEAR?1 OR 2 (0 POINTS) HOW OFTEN DID YOU HAVE A DRINK CONTAINING ALCOHOL IN THE PAST YEAR?TWO TO FOUR TIMES A MONTH (2 POINTS) POINTS2 INTERPRETATIONNEGATIVE RECREATIONAL DRUG USE DRUG USE?NO LEARNING BARRIERS / SPECIAL NEEDS BARRIERS TO LEARNING?NO HEARING IMPAIRED?NO VISION IMPAIRED?YES COGNITIVELY IMPAIRED?NO :CORRECTIVE LENSES READINESS TO LEARN?YES LEARNING PREFERENCES?YES :DEMONSTRATION/VERBAL INSTRUCTION LEARNING CAPABILITIES PRESENT?YES EMOTIONAL BARRIERS?NO SPECIAL DEVICES?NO CUSTOMER SUCCESS REPRESENTATIVE NEEDED?NO REVIEWED 02/23/18 0945 LAS06/01/18 0905 REVIEWED WITH PT. ADREVIEWED WITH PT 06/23/18 1032 BV09/15/18 REVIEWED WITH PT. ADREDUINIEWED WITH PT 10/11/18 1130PRE PROCEDURE SCREENING DONE 08/11/19 EMREVIEWED WITH PATIENT 06/06/2019 LASREVIEWED WITH PATIENT 12/28/18 0924 JS11/17/18 REVIEWED WITH PT.REVIEWED WITH PATIENT 07/13/19 0916 NLJREVIEWED WITH PATIENT 07/19/19 1018 JS. HOSPITALIZATION/MAJOR DIAGNOSTIC PROCEDURE KNEE SURG REVIEW OF SYSTEMS REVIEWED BY: PROVIDER: CARLI FUENTES . CONSTITUTIONAL: ANY CHANGE IN YOUR MEDICAL CONDITION? NO . CHILLS NO . FEVER NO . INFECTION: DO YOU HAVE NEW INFECTIONS? NO . DO YOU HAVE HISTORY OF MRSA? NO . MUSCULOSKELETAL: ANY NEW PATTERNS OF PAIN OR NUMBNESS? NO . GASTROENTEROLOGY: ANY NEW CHANGE IN BOWEL CONTROL? NO . GENITOURINARY: ANY NEW CHANGE IN BLADDER CONTROL? NO . IS THERE A CHANCE YOU COULD BE ? NO . HEMATOLOGY/LYMPH: DO YOU TAKE ANY BLOOD THINNERS? (FOR EXAMPLE- COUMADIN, PLAVIX, AGGRENOX, PLATEL, PRADAXA, OR XARELTO) NO . WHEN WAS YOUR LAST DOSE? DATE: TIME: . NEUROLOGY: HAVE YOU FALLEN IN THE PAST 12 MONTHS? NO . ANY NEW EXTREMITY NUMBNESS OR WEAKNESS? NO . CARDIOLOGY: DO YOU HAVE A PACEMAKER OR DEFIBRILLATOR? NO . RESPIRATORY: HAVE YOU BEEN SICK IN THE PAST WEEK? NO . FEVER NO . FLU LIKE SYMPTOMS? NO . COUGH NO . INTEGUMENTARY: DO YOU HAVE ANY RASHES OR OPEN SORES? NO . ALLERGIC/IMMUNO: ARE YOU ALLERGIC TO IV DYE? NO . ANY NEW ALLERGIES? NO . PSYCHIATRIC: DO YOU HAVE THOUGHTS OF HURTING YOURSELF OR SOMEONE ELSE? NO . ARE YOU ABUSED, NEGLECTED, OR IN AN UNSAFE ENVIRONMENT? NO . ENDOCRINOLOGY: ARE YOU DIABETIC? YES . OTHER: DO YOU NEED ANY PRESCRIPTIONS? NO . IF YES, PLEASE LIST: ____ . ANY NEW PROBLEMS WITH YOUR MEDICATIONS? NO . WHEN DID YOU LAST EAT? ____ . WHEN DID YOU LAST DRINK? ____ . WHAT DID YOU LAST DRINK? ____ . NAME OF PERSON DRIVING YOU HOME? ____ . DO YOU HAVE ANY OTHER QUESTIONS OR CONCERNS NO . VITAL SIGNS WT 242.4 LBS, HT 70 IN, BMI 34.78 INDEX, BP 114/67 MM HG, HR 86 /MIN, RR 18 /MIN, TEMP 96.9 F, OXYGEN SAT % 96%, NA INITIALS SC 10:57, REVIEWED BY: EM. EXAMINATION GENERAL EXAMINATION: GENERALNO ACUTE DISTRESS, WELL NOURISHED AND HYDRATED. PSYCHAPPROPRIATE MOOD AND AFFECT . LUNGS:CLEAR TO AUSCULTATION BILATERALLY, NO WHEEZES, RHONCHI, RALES. HEART:NO MURMURS, REGULAR RATE AND RHYTHM. ASSESSMENTS SPONDYLOSIS OF LUMBAR REGION WITHOUT MYELOPATHY OR RADICULOPATHY - M47.816 (PRIMARY) TREATMENT SPONDYLOSIS OF LUMBAR REGION WITHOUT MYELOPATHY OR RADICULOPATHY CLINICAL NOTES: 69-YEAR-OLD MALE IN FOR POST RF PROCEDURE FOLLOW-UP. GIVEN PRESENTING SYMPTOMS AND RESULTS OF PHYSICAL EXAMINATION RECOMMENDED FOLLOW-UP IN 3 MONTHS. HE WAS ENCOURAGED TO CALL THE OFFICE SHOULD HE EXPERIENCE AN INCREASE IN PAIN. PATIENT HAS EXPRESSED UNDERSTANDING OF AND WAS IN AGREEMENT WITH TREATMENT PLAN. GIVEN TIME TO ASK QUESTIONS AND EXPRESS CONCERNS., [employer] REGISTRY REVIEWED AND DEMONSTRATES COMPLLIANCE. (REF # [id number] ) BRINGS IN MEDICATIONS WHICH IS APPROPRIATE FOR WHAT WAS DISPENSED. RECENT URINE TOXICOLOGY REVIEWED. NO UNAUTHORIZED MEDICATIONS. NO ILLICIT SUBSTANCES AND PRESCRIBED MEDICATIONS WERE PRESENT. PROCEDURE CODES FA211 ESTABILISHED PATIENT [facility] CHARGE DISPOSITION & COMMUNICATION FOLLOW UP 3 MONTHS (REASON: BACK PAIN) ELECTRONICALLY SIGNED BY MARIXA SANDRA ON 09/08/2019 AT 03:02 PM EST DISCLAIMER : THIS IS A VISIT SUMMARY EXTRACTED FROM THE [employer] CHART. IT IS NOT A COPY OF THE [employer] PROGRESS NOTE. MYNOR
== END ==
LOC: M PAIN 10:45
PROVIDERS: ATTEND Family Medicine
DX: M47.816 Spondylosis without myelopathy or radiculopathy, lumbar region (principal)

== ENCOUNTER → 2019-10-26 | Outpatient (REF) | payer MEDICARE, BC | LOC: M LAB REF 11:46 | PROVIDERS: ATTEND Dermatology | DX: D23.5 Other benign neoplasm of skin of trunk (principal) ==

== ENCOUNTER → 2020-01-15 | Outpatient (CLI) | payer MEDICARE, BC, OTHER ==
--- NOTE | 2020-01-17 03:57 | ECWPNPC ---
PATIENT NAME: TYE CLAUDIO : 1950 GENDER: MALE VISIT DATE: 01/15/2020 DISCHARGE DATE: 01/15/20 1157 VISIT LOCKED DATE TIME: PHYSICIAN: LULY JOHNSON RESOURCE: LULY JOHNSON REASON FOR APPOINTMENT 1. BACK PAIN HISTORY OF PRESENT ILLNESS HISTORY OF PRESENT ILLNESS: PAIN THE PATIENT DESCRIBES THE PAINDURING THE LAST MONTH SEVERITY - PAIN SCORE OF5/10, 6/10 LOCATIONSLOWER BACK, WITH RADIATION TO LEFT LEG AND GROIN AREA QUALITYACHING , SHOOTING DURATIONMAINLY DURING THE DAY, ONLY WITH SPECIFIC ACTIVITIES, INTERMITTENT WALKING, WHEN ACTIVE PAIN IS INCREASED BY:ACTIVITIES, PROLONGED STANDING PAIN IS DECREASED BY:SITTING 69-YEAR-OLD MALE IN FOR POST RF PROCEDURE FOLLOW-UP. PATIENT FEELS THE PROCEDURE WORKED WELL OVERALL RATING HIS PAIN PREPROCEDURE AT A 7-9 OUT OF 10 AND POST PROCEDURE AT A 0-1 OUT OF 10. HE FURTHER STATES THE PROCEDURE CONTINUES TO HELP HIM TODAY. HE DOES ADMIT TO A NEW ONSET OF LEFT SIDED PAIN AND WOULD LIKE TO DISCUSS AN RF PROCEDURE FOR THAT SIDE. HE RATES HIS PAIN CURRENTLY AT A 5-6 OUT OF 10 AND DESCRIBES IT ACHING AND SHOOTING. FALL RISK SCREENING: SCREENING :NO FALLS REPORTED IN THE LAST YEAR CURRENT MEDICATIONS TAKING ASPIRIN 81 81 MG TABLET CHEWABLE 1 TABLET ORALLY ONCE A DAY TAKING ATENOLOL 100 MG TABLET 1 TABLET ORALLY ONCE A DAY TAKING CITALOPRAM HYDROBROMIDE 20 MG TABLET 1 TABLET ORALLY ONCE A DAY TAKING FLONASE 50 MCG/DOSE INHALER 1 SPRAY IN EACH NOSTRIL NASALLY ONCE A DAILY-TAKES NEEDED TAKING HYDROCHLOROTHIAZIDE 25 MG TABLET 1 TABLET IN THE MORNING ORALLY ONCE A DAY TAKING NOVOLOG FLEXPEN 100 UNIT/ML SOLUTION PEN-INJECTOR SLIDING SCALE SUBCUTANEOUS TAKING LANTUS SOLOSTAR 100 UNIT/ML SOLUTION 60 UNITS SUBCUTANEOUS DAILY TAKING LISINOPRIL 40 MG TABLET 1 TABLET ORALLY ONCE A DAY TAKING PANTOPRAZOLE SODIUM 40 MG TABLET DELAYED RELEASE 1 TABLET ORALLY ONCE A DAY TAKING CRESTOR 20 MG TABLET 1 TABLET ORALLY ONCE A DAY TAKING METFORMIN HCL 500 MG TABLET 1 TABLET WITH MEALS ORALLY TWICE A DAY TAKING REMICADE 100 MG SOLUTION RECONSTITUTED 900 MG INTRAVENOUS EVERY 4 WEEKS TAKING IBUPROFEN 600 MG TABLET 1 TABLET WITH FOOD OR MILK NEEDED ORALLY THREE TIMES A DAY TAKING ACETAMINOPHEN 325 MG CAPSULE 1 CAPSULE NEEDED ORALLY EVERY 4 HRS TAKING EMPAGLIFLOZIN 25 MG TABLET 1 TABLET ORALLY ONCE A DAY TAKING GABAPENTIN 600 MG TABLET 1 TABLET ORALLY Q8H TID TAKING CICLOPIROX 0.77 % GEL 1 APPLICATION EXTERNALLY TWICE A DAY TO FEET AND BACK RASH NOT-TAKING TRAMADOL HCL 50 MG TABLET 1 TABLET NEEDED ORALLY Q8H PRN SEVERE PAIN MDD3 NOT-TAKING TIZANIDINE HCL 2 MG TABLET 1 TABLET NEEDED ORALLY THREE TIMES A DAY PRN MEDICATION LIST REVIEWED AND RECONCILED WITH THE PATIENT PAST MEDICAL HISTORY HYPERLIPIDEMIA HYPERTENSION DIABETES MELLITUS TYPE 2 ACID REFLUX ARTHRITIS ANKYLOSIS SPONDYLITIS/ ARTHRITIS HEALTH SPEC - [place] BACK PAIN ALLERGIES LIPITOR: MUSCLE PAIN - SIDE EFFECTS SURGICAL HISTORY LEFT KNEE SURGERY RIGHT FOOT BUNIONECTOMY FAMILY HISTORY FATHER: , DIAGNOSED WITH DIABETES MOTHER: ALIVE, UNSPECIFIED CEREBRAL ARTERY OCCLUSION WITH CEREBRAL INFARCTION, OTHER SPECIFIED CONDITIONS INFLUENCING HEALTH STATUS 4 SON(S) , 1 DAUGHTER(S) - HEALTHY. MOTHER HAS HISTORY OF ARTHRITIS AND STROKE. DENIES FAMILY HX OF MELANONA AND PANCREATIC CANCER. SOCIAL HISTORY GENERAL: TOBACCO USE ARE YOU A:NONSMOKER LATEX QUESTIONNAIRE LATEX ALLERGY : HAVE YOU EVER DEVELOPED ANY TYPE OF REACTION AFTER HANDLING LATEX PRODUCTS SUCH RUBBER GLOVES, CONDOMS, DIAPHRAGMS, BALLOONS, SOCKS, OR UNDERWEAR?NO LATEX ALLERGY : HAVE YOU EVER DEVELOPED ANY TYPE OF REACTION DURING OR AFTER DENTAL APPOINTMENT, VAGINAL/RECTAL EXAMINATION, SURGICAL PROCEDURE, OR ANY OTHER EXPOSURE?NO DATE ASKED : 10/26/2019 LATEX RISK : HAVE YOU EVER HAD ANY DIFFICULTY BREATHING OR HIVES AFTER EATING OR HANDLING ANY FRUITS, OR VEGETABLES; SUCH KIWI, BANANAS, STONE FRUITS, OR CHESTNUTSNO LATEX RISK : DO YOU HAVE A PREVIOUS PERSONAL HISTORY OF MORE THAN NINE SURGERIES, SPINA BIFIDA, OR REPEATED CATHERIZATIONS? NO LATEX RISK : ARE YOU FREQUENTLY EXPOSED TO LATEX PRODUCTS IN YOUR OCCUPATION?NO ALCOHOL SCREENING DID YOU HAVE A DRINK CONTAINING ALCOHOL IN THE PAST YEAR?YES HOW OFTEN DID YOU HAVE SIX OR MORE DRINKS ON ONE OCCASION IN THE PAST YEAR?NEVER (0 POINTS) HOW MANY DRINKS DID YOU HAVE ON A TYPICAL DAY WHEN YOU WERE DRINKING IN THE PAST YEAR?1 OR 2 (0 POINTS) HOW OFTEN DID YOU HAVE A DRINK CONTAINING ALCOHOL IN THE PAST YEAR?TWO TO FOUR TIMES A MONTH (2 POINTS) POINTS2 INTERPRETATIONNEGATIVE RECREATIONAL DRUG USE DRUG USE?NO CAFFEINE CAFFEINE USE?YES COFFEE DAILY SHINTO [id number] MUSLIM LANGUAGE LANGUAGES SPOKEN:TUR[place] AND [place] ISLANDER LEARNING BARRIERS / SPECIAL NEEDS CHANGE FROM LAST VISIT? 10/26/19 BARRIERS TO LEARNING?NO HEARING IMPAIRED?NO VISION IMPAIRED?YES COGNITIVELY IMPAIRED?NO :CORRECTIVE LENSES READINESS TO LEARN?YES LEARNING PREFERENCES?YES :DEMONSTRATION/VERBAL INSTRUCTION LEARNING CAPABILITIES PRESENT?YES EMOTIONAL BARRIERS?NO SPECIAL DEVICES?NO HYDROCHLORIC AREA SUPERVISOR NEEDED?NO DOMESTIC VIOLENCE DO YOU FEEL SAFE IN YOUR ENVIRONMENT?YES PAIN CLINIC PFS, CLERGY, PUBLIC HEALTH REFERRALS PFS REFERRAL NEEDED?NO CLERGY REFERRAL NEEDED?NO PUBLIC HEALTH REFERRAL NEEDED?NO WAS THE PROVIDER NOTIFIED OF ANY PERTINENT INFO? N/A HAS THE PATIENT BEEN EDUCATED REGARDING HIS/HER PLAN OF CARE?YES HAS THE PATIENT BEEN EDUCATED REGARDING PAIN, THE RISK FOR PAIN, THE IMPORTANCE OF EFFECTIVE PAIN MANAGEMENT, AND THE PAIN ASSESSMENT PROCESS?YES ADVANCE DIRECTIVE ADVANCE DIRECTIVE DISCUSSED WITH PATIENT:YES PT DOES NOT HAVE ANY ADVANCED DIRECTIVES AND HE DECLINES INFORMATION ON HCP AT THIS TIME, STATES THAT HE HAS THE INFORMATION AT HOME. ASSISTANCE OFFERED IN COMPLETING HCP IF NEEDED. REVIEWED 02/23/18 0945 LAS06/01/18 0905 REVIEWED WITH PT. ADREVIEWED WITH PT 06/23/18 1032 BV09/15/18 REVIEWED WITH PT. ADREVIEWED WITH PT 10/11/18 1130PRE PROCEDURE SCREENING DONE 08/11/19 EMREVIEWED WITH PATIENT 06/06/2019 LASREVIEWED WITH PATIENT 12/28/18 0924 JS11/17/18 REVIEWED WITH PT.REVIEWED WITH PATIENT 07/13/19 0916 NLJREVIEWED WITH PATIENT 07/19/19 1018 JS. HOSPITALIZATION/MAJOR DIAGNOSTIC PROCEDURE KNEE SURG DEHYDRATION AT [facility] 09/2019 REVIEW OF SYSTEMS REVIEWED BY: PROVIDER: CARLI JOHNSON WORK COUNSELOR-C . CONSTITUTIONAL: ANY CHANGE IN YOUR MEDICAL CONDITION? NO . CHILLS NO . FEVER NO . INFECTION: DO YOU HAVE NEW INFECTIONS? NO . DO YOU HAVE HISTORY OF MRSA? NO . MUSCULOSKELETAL: ANY NEW PATTERNS OF PAIN OR NUMBNESS? YES, PAIN STARTED IN LEFT LEG LAST MONTH . GASTROENTEROLOGY: ANY NEW CHANGE IN BOWEL CONTROL? NO . GENITOURINARY: ANY NEW CHANGE IN BLADDER CONTROL? NO . IS THERE A CHANCE YOU COULD BE ? NO . HEMATOLOGY/LYMPH: DO YOU TAKE ANY BLOOD THINNERS? (FOR EXAMPLE- COUMADIN, PLAVIX, AGGRENOX, PLATEL, PRADAXA, OR XARELTO) NO . WHEN WAS YOUR LAST DOSE? DATE: TIME: . NEUROLOGY: HAVE YOU FALLEN IN THE PAST 12 MONTHS? NO . ANY NEW EXTREMITY NUMBNESS OR WEAKNESS? NO . CARDIOLOGY: DO YOU HAVE A PACEMAKER OR DEFIBRILLATOR? NO . RESPIRATORY: HAVE YOU BEEN SICK IN THE PAST WEEK? NO . FEVER NO . FLU LIKE SYMPTOMS? NO . COUGH NO . INTEGUMENTARY: DO YOU HAVE ANY RASHES OR OPEN SORES? NO . ALLERGIC/IMMUNO: ARE YOU ALLERGIC TO IV DYE? NO . ANY NEW ALLERGIES? NO . PSYCHIATRIC: DO YOU HAVE THOUGHTS OF HURTING YOURSELF OR SOMEONE ELSE? NO . ARE YOU ABUSED, NEGLECTED, OR IN AN UNSAFE ENVIRONMENT? NO . ENDOCRINOLOGY: ARE YOU DIABETIC? YES . OTHER: DO YOU NEED ANY PRESCRIPTIONS? NO . IF YES, PLEASE LIST: ____ . ANY NEW PROBLEMS WITH YOUR MEDICATIONS? NO . WHEN DID YOU LAST EAT? ____ . WHEN DID YOU LAST DRINK? ____ . WHAT DID YOU LAST DRINK? ____ . NAME OF PERSON DRIVING YOU HOME? ____ . DO YOU HAVE ANY OTHER QUESTIONS OR CONCERNS NO . VITAL SIGNS WT 246.0 LBS, HT 70 IN, BMI 35.29 INDEX, BP 131/68 MM HG, HR 71 /MIN, RR 18 /MIN, TEMP 96.0 F, OXYGEN SAT % 97%, NA INITIALS AW 1108. EXAMINATION GENERAL EXAMINATION: GENERALNO ACUTE DISTRESS, WELL NOURISHED AND HYDRATED. PSYCHAPPROPRIATE MOOD AND AFFECT . LUNGS:CLEAR TO AUSCULTATION BILATERALLY, NO WHEEZES, RHONCHI, RALES. HEART:NO MURMURS, REGULAR RATE AND RHYTHM. BACK:DENIES POINT TENDERNESS OVER LUMBAR SPINE, SURROUNDING SKIN SHOWS NO ERYTHEMA, ECCHYMOSIS, INCREASED WARMTH, AND/OR SKIN ERUPTIONS NOTED. . MUSCULOSKELETAL:EQUAL STRENGTH OF THE LOWER EXTREMITIES BILATERALLY. . ASSESSMENTS SPONDYLOSIS OF LUMBOSACRAL REGION WITHOUT MYELOPATHY OR RADICULOPATHY - M47.817 (PRIMARY) TREATMENT SPONDYLOSIS OF LUMBOSACRAL REGION WITHOUT MYELOPATHY OR RADICULOPATHY NOTES: DIAGNOSTIC FACET BLOCK #2 LEFT SIDE L4-L5 L5-S1. CLINICAL NOTES: 69-YEAR-OLD MALE IN FOR POST RF PROCEDURE FOLLOW-UP. GIVEN PRESENTING SYMPTOMS AND RESULTS OF PHYSICAL EXAMINATION RECOMMENDED DIAGNOSTIC FACET BLOCK #2 LEFT SIDE WITH POST PROCEDURAL FOLLOW-UP. PATIENT HAS EXPRESSED UNDERSTANDING OF AND WAS IN AGREEMENT WITH TREATMENT PLAN. GIVEN TIME TO ASK QUESTIONS AND EXPRESS CONCERNS. EDUCATION PROVIDED REGARDING PROCEDURE. OTHERS NOTES: FACET JOINT INJECTION MATERIAL WAS PRINTED. PROCEDURE CODES FA211 ESTABILISHED PATIENT [facility] CHARGE DISPOSITION & COMMUNICATION FOLLOW UP POSTPROCEDURE (REASON: DIAGNOSTIC FACET BLOCK #2 L4-L5 L5-S1 LEFT SIDE) ELECTRONICALLY SIGNED BY MARIXA SANDRA ON 01/16/2020 AT 08:37 AM EDT DISCLAIMER : THIS IS A VISIT SUMMARY EXTRACTED FROM THE [facility] CHART. IT IS NOT A COPY OF THE [facility] PROGRESS NOTE. MYLAD
== END ==
LOC: M PAIN 11:15
PROVIDERS: ATTEND Family Medicine
DX: M47.817 Spondylosis without myelopathy or radiculopathy, lumbosacral region (principal); I10 Essential (primary) hypertension; E11.9 Type 2 diabetes mellitus without complications; K21.9 Gastro-esophageal reflux disease without esophagitis; Z88.8 Allergy status to other drugs, medicaments and biological substances; Z79.82 Long term (current) use of aspirin; Z79.4 Long term (current) use of insulin; Z79.899 Other long term (current) 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

== ENCOUNTER → 2020-01-23 | Outpatient (REF) | payer MEDICARE, OTHER | LOC: M LAB REF 17:18 | PROVIDERS: ATTEND Dermatology | DX: L90.5 Scar conditions and fibrosis of skin (principal) ==

== ENCOUNTER → 2020-01-27 | Outpatient (CLI) | payer MEDICARE, BC, OTHER | LOC: M LABSMTC 09:00 | PROVIDERS: ATTEND Anesthesiology | DX: Z03.818 Encounter for observation for suspected exposure to other biological agents ruled out (principal); Z11.59 Encounter for screening for other viral diseases ==

== ENCOUNTER → 2020-01-30 | Outpatient (CLI) | payer MEDICARE, BC, OTHER ==
[~2020-01-30] MED LIST changes: +BUPIVACAINE HCL 0.25% 30ML VIAL As Ordered ONE; +ISOVUE-M 300 61% 15ML VIAL As Ordered ONE; +LIDOCAINE 1% SDV 30ML VIAL As Ordered ONE
--- NOTE | 2020-01-30 09:54 | REP ---
Partial lumbar spine series: Three views . History: Injection procedure for pain. 19 seconds of fluoroscopy time is reported. Findings: A sequence of three fluoroscopically obtained last image hold procedural spot radiographs of the lumbar spine document needle position and contrast injection associated with injection procedure. Electronically Signed by Sánchez Hathaway MD 01/30/2020 09:45 A
--- NOTE | 2020-01-31 01:51 | ECWPNPC ---
PATIENT NAME: TYE CLAUDIO : 1950 GENDER: MALE VISIT DATE: 01/30/2020 DISCHARGE DATE: 01/30/20958 VISIT LOCKED DATE TIME: PHYSICIAN: GARRETT MEDLEY MD RESOURCE: GARRETT MEDLEY MD REASON FOR APPOINTMENT 1. DIAGNOSTIC FACET BLOCK #2 L4-L5 L5-S1 LEFT SIDE HISTORY OF PRESENT ILLNESS HISTORY OF PRESENT ILLNESS: PAIN THE PATIENT DESCRIBES THE PAIN... FALL RISK SCREENING: SCREENING :NO FALLS REPORTED IN THE LAST YEAR CURRENT MEDICATIONS TAKING ASPIRIN 81 81 MG TABLET CHEWABLE 1 TABLET ORALLY ONCE A DAY, NOTES: 01/29/202199 TAKING ATENOLOL 100 MG TABLET 1 TABLET ORALLY ONCE A DAY, NOTES: 01/29/202199 TAKING CITALOPRAM HYDROBROMIDE 20 MG TABLET 1 TABLET ORALLY ONCE A DAY, NOTES: 01/29/20 TAKING FLONASE 50 MCG/DOSE INHALER 1 SPRAY IN EACH NOSTRIL NASALLY ONCE A DAILY-TAKES NEEDED, NOTES: 01/29/202199 TAKING HYDROCHLOROTHIAZIDE 25 MG TABLET 1 TABLET IN THE MORNING ORALLY ONCE A DAY, NOTES: 01/29/20899 TAKING NOVOLOG FLEXPEN 100 UNIT/ML SOLUTION PEN-INJECTOR SLIDING SCALE SUBCUTANEOUS , NOTES: 01/29/20 1800 TAKING LANTUS SOLOSTAR 100 UNIT/ML SOLUTION 60 UNITS SUBCUTANEOUS DAILY, NOTES: 01/29/202199 TAKING LISINOPRIL 40 MG TABLET 1 TABLET ORALLY ONCE A DAY, NOTES: 01/29/202199 TAKING PANTOPRAZOLE SODIUM 40 MG TABLET DELAYED RELEASE 1 TABLET ORALLY ONCE A DAY, NOTES: 01/29/202199 TAKING CRESTOR 20 MG TABLET 1 TABLET ORALLY ONCE A DAY, NOTES: 01/29/202199 TAKING METFORMIN HCL 500 MG TABLET 1 TABLET WITH MEALS ORALLY TWICE A DAY, NOTES: 01/29/202199 TAKING REMICADE 100 MG SOLUTION RECONSTITUTED 900 MG INTRAVENOUS EVERY 4 WEEKS, NOTES: 5 WEEKS TAKING IBUPROFEN 600 MG TABLET 1 TABLET WITH FOOD OR MILK NEEDED ORALLY THREE TIMES A DAY, NOTES: 01/29/202199 TAKING ACETAMINOPHEN 325 MG CAPSULE 1 CAPSULE NEEDED ORALLY EVERY 4 HRS, NOTES: 01/29/202199 TAKING EMPAGLIFLOZIN 25 MG TABLET 1 TABLET ORALLY ONCE A DAY, NOTES: 01/29/20 08 TAKING GABAPENTIN 600 MG TABLET 1 TABLET ORALLY Q8H TID, NOTES: 01/29/202199 TAKING CICLOPIROX 0.77 % GEL 1 APPLICATION EXTERNALLY TWICE A DAY TO FEET AND BACK RASH, NOTES: 01/29/20 0800 TAKING VIT D-VIT E-SAFFLOWER OIL , NOTES: 01/29/202199 TAKING MULTI FOR HIM 50+ , NOTES: 01/29/202199 TAKING MIRALAX - PACKET 1 PACKET MIXED WITH 8 OUNCES OF FLUID ORALLY ONCE A DAY, NOTES: 01/29/202199 MEDICATION LIST REVIEWED AND RECONCILED WITH THE PATIENT PAST MEDICAL HISTORY HYPERLIPIDEMIA HYPERTENSION DIABETES MELLITUS TYPE 2 ACID REFLUX ARTHRITIS ANKYLOSIS SPONDYLITIS/ ARTHRITIS HEALTH SPEC - [place] BACK PAIN ALLERGIES LIPITOR: MUSCLE PAIN - SIDE EFFECTS SURGICAL HISTORY LEFT KNEE SURGERY RIGHT FOOT BUNIONECTOMY FAMILY HISTORY FATHER: , DIAGNOSED WITH DIABETES MOTHER: ALIVE, OTHER SPECIFIED CONDITIONS INFLUENCING HEALTH STATUS, UNSPECIFIED CEREBRAL ARTERY OCCLUSION WITH CEREBRAL INFARCTION 4 SON(S) , 1 DAUGHTER(S) - HEALTHY. MOTHER HAS HISTORY OF ARTHRITIS AND STROKE. DENIES FAMILY HX OF MELANONA AND PANCREATIC CANCER. SOCIAL HISTORY GENERAL: TOBACCO USE ARE YOU A:NONSMOKER LATEX QUESTIONNAIRE LATEX ALLERGY : HAVE YOU EVER DEVELOPED ANY TYPE OF REACTION AFTER HANDLING LATEX PRODUCTS SUCH RUBBER GLOVES, CONDOMS, DIAPHRAGMS, BALLOONS, SOCKS, OR UNDERWEAR?NO LATEX ALLERGY : HAVE YOU EVER DEVELOPED ANY TYPE OF REACTION DURING OR AFTER DENTAL APPOINTMENT, VAGINAL/RECTAL EXAMINATION, SURGICAL PROCEDURE, OR ANY OTHER EXPOSURE?NO LATEX RISK : HAVE YOU EVER HAD ANY DIFFICULTY BREATHING OR HIVES AFTER EATING OR HANDLING ANY FRUITS, OR VEGETABLES; SUCH KIWI, BANANAS, STONE FRUITS, OR CHESTNUTSNO LATEX RISK : DO YOU HAVE A PREVIOUS PERSONAL HISTORY OF MORE THAN NINE SURGERIES, SPINA BIFIDA, OR REPEATED CATHERIZATIONS? NO LATEX RISK : ARE YOU FREQUENTLY EXPOSED TO LATEX PRODUCTS IN YOUR OCCUPATION?NO DATE ASKED : 01/26/2020 ALCOHOL SCREENING DID YOU HAVE A DRINK CONTAINING ALCOHOL IN THE PAST YEAR?YES HOW OFTEN DID YOU HAVE SIX OR MORE DRINKS ON ONE OCCASION IN THE PAST YEAR?NEVER (0 POINTS) HOW MANY DRINKS DID YOU HAVE ON A TYPICAL DAY WHEN YOU WERE DRINKING IN THE PAST YEAR?1 OR 2 (0 POINTS) HOW OFTEN DID YOU HAVE A DRINK CONTAINING ALCOHOL IN THE PAST YEAR?TWO TO FOUR TIMES A MONTH (2 POINTS) POINTS2 INTERPRETATIONNEGATIVE RECREATIONAL DRUG USE DRUG USE?NO CAFFEINE CAFFEINE USE?YES COFFEE DAILY PROTESTANT [id number] PROTESTANT LANGUAGE LANGUAGES SPOKEN:IRANIAN LEARNING BARRIERS / SPECIAL NEEDS CHANGE FROM LAST VISIT? 10/26/19 BARRIERS TO LEARNING?NO HEARING IMPAIRED?NO VISION IMPAIRED?YES COGNITIVELY IMPAIRED?NO :CORRECTIVE LENSES READINESS TO LEARN?YES LEARNING PREFERENCES?YES :DEMONSTRATION/VERBAL INSTRUCTION LEARNING CAPABILITIES PRESENT?YES EMOTIONAL BARRIERS?NO SPECIAL DEVICES?NO UNDERGROUND FOREMAN NEEDED?NO DOMESTIC VIOLENCE DO YOU FEEL SAFE IN YOUR ENVIRONMENT?YES NEW PATIENT PAIN DIARY TODAY'S VISIT 01/30/20 PATIENT DESCRIBES PAIN :ACHING, IT COMES AND GOES, SHARP, THROBBING, SHOOTING FROM 0-10, WHAT LEVEL IS YOUR PAIN TODAY?7 PRECIPITATING FACTORS ACTIVITY, WALKING ALLEVIATING FACTORS REST, MEDICATIONS PAIN CLINIC PFS, CLERGY, PUBLIC HEALTH REFERRALS PFS REFERRAL NEEDED?NO CLERGY REFERRAL NEEDED?NO PUBLIC HEALTH REFERRAL NEEDED?NO WAS THE PROVIDER NOTIFIED OF ANY PERTINENT INFO? N/A HAS THE PATIENT BEEN EDUCATED REGARDING HIS/HER PLAN OF CARE?YES HAS THE PATIENT BEEN EDUCATED REGARDING PAIN, THE RISK FOR PAIN, THE IMPORTANCE OF EFFECTIVE PAIN MANAGEMENT, AND THE PAIN ASSESSMENT PROCESS?YES ADVANCE DIRECTIVE ADVANCE DIRECTIVE DISCUSSED WITH PATIENT:YES PT DOES NOT HAVE ANY ADVANCED DIRECTIVES AND HE DECLINES INFORMATION ON HCP AT THIS TIME, STATES THAT HE HAS THE INFORMATION AT HOME. ASSISTANCE OFFERED IN COMPLETING HCP IF NEEDED. REVIEWED 02/23/18 0945 LAS06/01/18 0905 REVIEWED WITH PT. ADREVIEWED WITH PT 06/23/18 1032 BV09/15/18 REVIEWED WITH PT. ADREVIEWED WITH PT 10/11/18 1130PRE PROCEDURE SCREENING DONE 08/11/19 EMREVIEWED WITH PATIENT 06/06/2019 LASREVIEWED WITH PATIENT 12/28/18 0924 JS11/17/18 REVIEWED WITH PT.REVIEWED WITH PATIENT 07/13/19 0916 NLJREVIEWED WITH PATIENT 07/19/19 1018 JS. HOSPITALIZATION/MAJOR DIAGNOSTIC PROCEDURE KNEE SURG DEHYDRATION AT [facility] 09/2019 REVIEW OF SYSTEMS REVIEWED BY: PROVIDER: GARRETT MEDLEY MD . CONSTITUTIONAL: ANY CHANGE IN YOUR MEDICAL CONDITION? NO . CHILLS NO . FEVER NO . INFECTION: DO YOU HAVE NEW INFECTIONS? NO . DO YOU HAVE HISTORY OF MRSA? NO . MUSCULOSKELETAL: ANY NEW PATTERNS OF PAIN OR NUMBNESS? NO . GASTROENTEROLOGY: ANY NEW CHANGE IN BOWEL CONTROL? NO . GENITOURINARY: ANY NEW CHANGE IN BLADDER CONTROL? NO . IS THERE A CHANCE YOU COULD BE ? NO . HEMATOLOGY/LYMPH: DO YOU TAKE ANY BLOOD THINNERS? (FOR EXAMPLE- COUMADIN, PLAVIX, AGGRENOX, PLATEL, PRADAXA, OR XARELTO) NO . WHEN WAS YOUR LAST DOSE? DATE: TIME: . NEUROLOGY: HAVE YOU FALLEN IN THE PAST 12 MONTHS? NO . ANY NEW EXTREMITY NUMBNESS OR WEAKNESS? NO . CARDIOLOGY: DO YOU HAVE A PACEMAKER OR DEFIBRILLATOR? NO . RESPIRATORY: HAVE YOU BEEN SICK IN THE PAST WEEK? NO . FEVER NO . FLU LIKE SYMPTOMS? NO . COUGH NO . INTEGUMENTARY: DO YOU HAVE ANY RASHES OR OPEN SORES? NO . ALLERGIC/IMMUNO: ARE YOU ALLERGIC TO IV DYE? NO . ANY NEW ALLERGIES? NO . PSYCHIATRIC: DO YOU HAVE THOUGHTS OF HURTING YOURSELF OR SOMEONE ELSE? NO . ARE YOU ABUSED, NEGLECTED, OR IN AN UNSAFE ENVIRONMENT? NO . ENDOCRINOLOGY: ARE YOU DIABETIC? YES . OTHER: DO YOU NEED ANY PRESCRIPTIONS? NO . IF YES, PLEASE LIST: ____ . ANY NEW PROBLEMS WITH YOUR MEDICATIONS? NO . WHEN DID YOU LAST EAT? 01/29/20 . WHEN DID YOU LAST DRINK? 01/29/20 . WHAT DID YOU LAST DRINK? ____ . NAME OF PERSON DRIVING YOU HOME? KELECHI . DO YOU HAVE ANY OTHER QUESTIONS OR CONCERNS NO . VITAL SIGNS WT 248.0 LBS, HT 70 IN, BMI 35.58 INDEX, BP 124/69 MM HG, HR 63 /MIN, RR 18 /MIN, TEMP 96.4 F, OXYGEN SAT % 97%, NA INITIALS MS 0858, REVIEWED BY: LS. EXAMINATION GENERAL EXAMINATION: THE PATIENT IS ALERT, ORIENTED TIMES THREE AND COOPERATIVE. HEART SHOWS REGULAR RHYTHM, NO MURMURS AND NO GALLOPS. LUNGS ARE CLEAR TO AUSCULTATION. ASSESSMENTS SPONDYLOSIS OF LUMBAR REGION WITHOUT MYELOPATHY OR RADICULOPATHY - M47.816 (PRIMARY) SPONDYLOSIS OF LUMBOSACRAL REGION WITHOUT MYELOPATHY OR RADICULOPATHY - M47.817 TREATMENT SPONDYLOSIS OF LUMBOSACRAL REGION WITHOUT MYELOPATHY OR RADICULOPATHY SMC FACET BLOCK (PAIN)[id number] PROCEDURES PN LUMBAR FACET BLOCK DIAGNOSTIC PRE PROCEDURE DIAGNOSIS LUMBAR SPONDYLOSIS, LUMBOSACRAL SPONDYLOSIS POST PROCEDURE DIAGNOSIS LUMBAR SPONDYLOSIS, LUMBOSACRAL SPONDYLOSIS PROCEDURE LEFT L4-L5 AND LEFT L5-S1 FACET BLOCK DIAGNOSTIC NUMBER [address] GARRETT MEDLEY PHARMACY TEACHER NONE ANESTHESIA LOCAL PRE PROCEDURE NOTE THE PATIENT WITH HISTORY OF CHRONIC LOW BACK PAIN. I EVALUATED THE PATIENT AND REVIEWED THE CHART. I WENT OVER THE RISKS, ALTERNATIVES, AND BENEFITS ASSOCIATED WITH THIS PROCEDURE. THE PATIENT WOULD LIKE TO PROCEED AND GAVE CONSENT TO PERFORM THE PROCEDURE. AGREED WITH THE PATIENT WE ARE DOING THIS PROCEDURE TO DETERMINE IF THE PATIENT IS A CANDIDATE FOR A RADIOFREQUENCY ABLATION OF THE FACETS JOINTS. THE PATIENT DENIES UNEXPLAINABLE WEIGHT LOSS, FEVER, CHILLS, OR NEW CHANGES IN URINARY OR BOWEL CONTROL. THE PATIENT IS COVID-19 NEGATIVE DESCRIPTION OF PROCEDURE THE PATIENT WAS BROUGHT TO THE PROCEDURE ROOM AND PLACED IN THE PRONE POSITION. THE LUMBOSACRAL AREA WAS CLEANED WITH CHLORAPREP SOLUTION AND DRAPED ASEPTICALLY. THE PROCEDURE WAS DONE UNDER STERILE CONDITIONS. I CHECKED LATERALITY AND THE LEVEL WHERE THE PROCEDURE WAS GOING TO BE PERFORMED WITH THE PATIENT AND THE SUPPORTING STAFF AT THE MOMENT OF THE TIME OUT IN THE PROCEDURE ROOM. UNDER FLUOROSCOPIC GUIDANCE, TARGETS WERE SELECTED AT THE INTERSECTION OF THE LEFT TRANSVERSE PROCESS OF L4, L5 AND ALA OF S1 WITH ITS RESPECTIVE SUPERIOR ARTICULAR PROCESS. LIDOCAINE WAS USED TO NUMB THE SKIN AND THE SUBCUTANEOUS TISSUE BELOW IT. SPINAL NEEDLE, 22-GAUGE, WAS ADVANCED UNDER FLUOROSCOPIC GUIDANCE AND FOLLOWING PATIENT FEEDBACK UNTIL THE TARGETS WERE REACHED. POSITION OF THE NEEDLES WAS VERIFIED WITH AP AND LATERAL VIEWS. AFTER PROPER POSITION OF THE NEEDLES WAS ACHIEVED, ISOVUE-M DYE 30%, 0.1 ML, WAS INJECTED AT EACH SITE SHOWING ADEQUATE SPREAD OF THE DYE. THEN A SOLUTION OF 0.4 ML OF BUPIVACAINE 0.25% WAS INJECTED AT EACH SITE. THERE WAS NO EVIDENCE OF BLOOD, PARESTHESIA OR CEREBROSPINAL FLUID DURING THE PROCEDURE. THE PATIENT WAS SENT TO THE RECOVERY ROOM. THE PATIENT WAS MOVING THE EXTREMITIES AND DOING WELL. THERE WAS NO COMPLICATION DURING THE PROCEDURE. FLUOROSCOPY TIME WAS 19 SECONDS POST PROCEDURE NOTE THE PATIENT WILL DOCUMENT HIS PAIN LEVEL AND RESPONSE TO THIS PROCEDURE EVERY 30 MINUTES. THE PATIENT WILL BE SEEN IN A FOLLOW UP IN THE NEXT FEW WEEKS. FURTHER DETERMINATION FOR HIS CASE WILL BE DONE AT THE NEXT VISIT. INSTRUCTIONS WERE GIVEN, QUESTIONS WERE ANSWERED, AND THE PATIENT EXPRESSED UNDERSTANDING AND AGREED WITH THE PLAN. I, MELQUIADES GONCALVES, DOCUMENTED THE ABOVE INFORMATION ACTING A SCRIBE FOR DR. MEDLEY. I HAVE REVIEWED THE ABOVE DOCUMENT, WRITTEN BY MELQUIADES GONCALVES, INDUCTION COORDINATION POWER ENGINEER, AND I VERIFY THAT IT IS ACCURATE PROCEDURE CODES 41898 INJ PARAVERT F JNT L/S 1 LEV, [place]IFI[place]: [place] [id number] INJ PARAVERT F JNT L/S 2 LEV, MODIFIERS: LT DISPOSITION & COMMUNICATION FOLLOW UP F/UP WITH SENIOR BUSINESS MANAGER (REASON: POST LFBD #2-LT L4-L5, L5-S1) ELECTRONICALLY SIGNED BY GARRETT MEDLEY MD, MD ON 01/30/2020 AT 05:01 PM EDT DISCLAIMER : THIS IS A VISIT SUMMARY EXTRACTED FROM THE [facility] CHART. IT IS NOT A COPY OF THE [facility] PROGRESS NOTE. MYLAD
== END ==
LOC: M PAIN 08:30
PROVIDERS: ATTEND Anesthesiology
DX: M47.816 Spondylosis without myelopathy or radiculopathy, lumbar region (principal); M47.817 Spondylosis without myelopathy or radiculopathy, lumbosacral region
CPT/HCPCS: 64493; 64494; Q9967

== ENCOUNTER → 2020-02-12 | Outpatient (CLI) | payer MEDICARE, BC, OTHER ==
[~2020-02-12] MED LIST changes: -BUPIVACAINE HCL 0.25% 30ML VIAL As Ordered ONE; -ISOVUE-M 300 61% 15ML VIAL As Ordered ONE; -LIDOCAINE 1% SDV 30ML VIAL As Ordered ONE
--- NOTE | 2020-02-14 02:41 | ECWPNPC ---
PATIENT NAME: TYE CLAUDIO : 1950 GENDER: MALE VISIT DATE: 02/12/2020 DISCHARGE DATE: 02/12/20 1040 VISIT LOCKED DATE TIME: PHYSICIAN: LULY JOHNSON RESOURCE: LULY JOHNSON REASON FOR APPOINTMENT 1. POST DIAGNOSTIC FACET BLOCK #2 L4-L5 L5-S1 LEFT SIDE HISTORY OF PRESENT ILLNESS GENERAL: - 69-YEAR-OLD MALE IN FOR POST DIAGNOSTIC FACET BLOCK #2 FOLLOW-UP. PATIENT RATES HIS PAIN PREPROCEDURE AT A 7 OUT OF 10 AND POSTPROCEDURE AT A 0-3 OUT OF 10X4 HOURS. HE RATES HIS PAIN CURRENTLY AT A 6 OUT OF 10 AND DESCRIBES IT ACHING AND STABBING. PAIN SCREENING: PATIENT HAS A COMPLAINT OF ACUTE OR CHRONIC PAIN :YES PRE-PROCEDURE PAIN-7/10, POST-PROCEDURE PAIN-0-3/10, NOW-6-7/10 LOCATION OF PAIN:LOW BACK, LEG(S) GOES DOWN LEFT LEG INTENSITY OF PAIN (SCALE OF 1 TO 10):6 WHAT DOES YOUR PAIN FEEL LIKE:ACHING, STABBING DURATION:CONTINOUS, CONSTANT, ALL DAY PAIN IS INCREASED BY:ACTIVITIES, PROLONGED STANDING PAIN IS DECREASED BY:USE OF PAIN MEDICATIONS, SITTING IBUPROFEN, TYLENOL TREATMENT/MEDICATIONS USED TO MANAGE PAIN:OTC PAIN RELIEVERS LEVEL OF RELIEF FROM PAIN TREATMENTS IN THE PAST:50% PAIN HAS INTERFERED WITH THE FOLLOWING:MOOD, WALKING ABILITY, HOUSEWORK, RELATIONSHIP WITH OTHERS, ENJOYMENT OF LIFE PLAN/GOALS/TREATMENT/INTERVENTION/FOLLOW UP:SEE PLAN FALL RISK SCREENING: SCREENING :NO FALLS REPORTED IN THE LAST YEAR NURSING NOTE: -. DEPRESSION SCREENING: PHQ-2 (2015 EDITION) LITTLE INTEREST OR PLEASURE IN DOING THINGS?NOT AT ALL FEELING DOWN, DEPRESSED, OR HOPELESS?NOT AT ALL TOTAL SCORE0 PAIN CENTER INTAKE QUESTIONS: DO YOU HAVE A HISTORY OF MRSA? :NO DO YOU TAKE A BLOOD THINNERS? :NO DO YOU HAVE ANY BLEEDING DISORDERS? :NO ANY NEW NUMBNESS OR WEAKNESS IN YOUR LEGS OR ARMS? :NO ANY PACEMAKER,DEFIBRILLATOR, OR DORSAL COLUMN STIMULATOR? :NO DO YOU HAVE ANY RASHES OR OPEN SORES? :NO ARE YOU ALLERGIC TO IV DYE? :NO ARE YOU DIABETIC? :YES ANY NEW PROBLEMS WITH YOUR MEDICATIONS? :NO HAVE YOU RECEIVED A VACCINE IN THE PAST 30 DAYS? :NO DO YOU PLAN TO RECEIVE A VACCINE IN THE NEXT 21 DAYS? :NO DO YOU NEED ANY PRESCRIPTION? :NO DO YOU TAKE ANY IMMUNOSUPPRESSIVE MEDICATIONS? :NO CURRENT MEDICATIONS TAKING ASPIRIN 81 81 MG TABLET CHEWABLE 1 TABLET ORALLY ONCE A DAY, NOTES: 01/29/202199 TAKING ATENOLOL 100 MG TABLET 1 TABLET ORALLY ONCE A DAY, NOTES: 01/29/202199 TAKING CITALOPRAM HYDROBROMIDE 20 MG TABLET 1 TABLET ORALLY ONCE A DAY, NOTES: 01/29/20 TAKING FLONASE 50 MCG/DOSE INHALER 1 SPRAY IN EACH NOSTRIL NASALLY ONCE A DAILY-TAKES NEEDED, NOTES: 01/29/202199 TAKING HYDROCHLOROTHIAZIDE 25 MG TABLET 1 TABLET IN THE MORNING ORALLY ONCE A DAY, NOTES: 01/29/20 09 TAKING NOVOLOG FLEXPEN 100 UNIT/ML SOLUTION PEN-INJECTOR SLIDING SCALE SUBCUTANEOUS , NOTES: 01/29/20 1800 TAKING LANTUS SOLOSTAR 100 UNIT/ML SOLUTION 60 UNITS SUBCUTANEOUS DAILY, NOTES: 01/29/202199 TAKING LISINOPRIL 40 MG TABLET 1 TABLET ORALLY ONCE A DAY, NOTES: 01/29/202199 TAKING PANTOPRAZOLE SODIUM 40 MG TABLET DELAYED RELEASE 1 TABLET ORALLY ONCE A DAY, NOTES: 01/29/202199 TAKING CRESTOR 20 MG TABLET 1 TABLET ORALLY ONCE A DAY, NOTES: 01/29/202199 TAKING METFORMIN HCL 500 MG TABLET 1 TABLET WITH MEALS ORALLY TWICE A DAY, NOTES: 01/29/202199 TAKING REMICADE 100 MG SOLUTION RECONSTITUTED 900 MG INTRAVENOUS EVERY 4 WEEKS, NOTES: 5 WEEKS TAKING IBUPROFEN 600 MG TABLET 1 TABLET WITH FOOD OR MILK NEEDED ORALLY THREE TIMES A DAY, NOTES: 01/29/202199 TAKING ACETAMINOPHEN 325 MG CAPSULE 1 CAPSULE NEEDED ORALLY EVERY 4 HRS, NOTES: 01/29/202199 TAKING EMPAGLIFLOZIN 25 MG TABLET 1 TABLET ORALLY ONCE A DAY, NOTES: 01/29/20799 TAKING GABAPENTIN 600 MG TABLET 1 TABLET ORALLY Q8H TID, NOTES: 01/29/202199 TAKING CICLOPIROX 0.77 % GEL 1 APPLICATION EXTERNALLY TWICE A DAY TO FEET AND BACK RASH, NOTES: 01/29/20799 TAKING VIT D-VIT E-SAFFLOWER OIL , NOTES: 01/29/202199 TAKING MULTI FOR HIM 50+ , NOTES: 5/25/20 2200 TAKING MIRALAX - PACKET 1 PACKET MIXED WITH 8 OUNCES OF FLUID ORALLY ONCE A DAY, NOTES: 01/29/20 2200 MEDICATION LIST REVIEWED AND RECONCILED WITH THE PATIENT PAST MEDICAL HISTORY HYPERLIPIDEMIA HYPERTENSION DIABETES MELLITUS TYPE 2 ACID REFLUX ARTHRITIS ANKYLOSIS SPONDYLITIS/ ARTHRITIS HEALTH SPEC - SYRACUSE BACK PAIN ALLERGIES LIPITOR: MUSCLE PAIN - SIDE EFFECTS SURGICAL HISTORY LEFT KNEE SURGERY RIGHT FOOT BUNIONECTOMY FAMILY HISTORY FATHER: , DIAGNOSED WITH DIABETES MOTHER: ALIVE, UNSPECIFIED CEREBRAL ARTERY OCCLUSION WITH CEREBRAL INFARCTION, OTHER SPECIFIED CONDITIONS INFLUENCING HEALTH STATUS 4 SON(S) , 1 DAUGHTER(S) - HEALTHY. MOTHER HAS HISTORY OF ARTHRITIS AND STROKE. DENIES FAMILY HX OF MELANONA AND PANCREATIC CANCER. SOCIAL HISTORY GENERAL: TOBACCO USE ARE YOU A:NONSMOKER LATEX QUESTIONNAIRE LATEX ALLERGY : HAVE YOU EVER DEVELOPED ANY TYPE OF REACTION AFTER HANDLING LATEX PRODUCTS SUCH RUBBER GLOVES, CONDOMS, DIAPHRAGMS, BALLOONS, SOCKS, OR UNDERWEAR?NO LATEX ALLERGY : HAVE YOU EVER DEVELOPED ANY TYPE OF REACTION DURING OR AFTER DENTAL APPOINTMENT, VAGINAL/RECTAL EXAMINATION, SURGICAL PROCEDURE, OR ANY OTHER EXPOSURE?NO LATEX RISK : HAVE YOU EVER HAD ANY DIFFICULTY BREATHING OR HIVES AFTER EATING OR HANDLING ANY FRUITS, OR VEGETABLES; SUCH KIWI, BANANAS, STONE FRUITS, OR CHESTNUTSNO LATEX RISK : DO YOU HAVE A PREVIOUS PERSONAL HISTORY OF MORE THAN NINE SURGERIES, SPINA BIFIDA, OR REPEATED CATHERIZATIONS? NO LATEX RISK : ARE YOU FREQUENTLY EXPOSED TO LATEX PRODUCTS IN YOUR OCCUPATION?NO DATE ASKED : 02/12/2020 ALCOHOL SCREENING DID YOU HAVE A DRINK CONTAINING ALCOHOL IN THE PAST YEAR?YES HOW OFTEN DID YOU HAVE SIX OR MORE DRINKS ON ONE OCCASION IN THE PAST YEAR?NEVER (0 POINTS) HOW MANY DRINKS DID YOU HAVE ON A TYPICAL DAY WHEN YOU WERE DRINKING IN THE PAST YEAR?1 OR 2 (0 POINTS) HOW OFTEN DID YOU HAVE A DRINK CONTAINING ALCOHOL IN THE PAST YEAR?TWO TO FOUR TIMES A MONTH (2 POINTS) POINTS2 INTERPRETATIONNEGATIVE RECREATIONAL DRUG USE DRUG USE?NO CAFFEINE CAFFEINE USE?YES COFFEE DAILY [employer] [id number] L[employer]UAGES SPOKEN:GUYANESE LEARNING BARRIERS / SPECIAL NEEDS BARRIERS TO LEARNING?NO HEARING IMPAIRED?NO VISION IMPAIRED?YES :CORRECTIVE LENSES COGNITIVELY IMPAIRED?NO READINESS TO LEARN?YES LEARNING PREFERENCES?YES :DEMONSTRATION/VERBAL INSTRUCTION LEARNING CAPABILITIES PRESENT?YES EMOTIONAL BARRIERS?NO SPECIAL DEVICES?NO LEGAL DIRECTOR NEEDED?NO DOMESTIC VIOLENCE DO YOU FEEL SAFE IN YOUR ENVIRONMENT?YES NEW PATIENT PAIN DIARY PATIENT DESCRIBES PAIN :ACHING, IT COMES AND GOES, SHARP, THROBBING, SHOOTING FROM 0-10, WHAT LEVEL IS YOUR PAIN TODAY?7 PRECIPITATING FACTORS ACTIVITY, WALKING ALLEVIATING FACTORS REST, MEDICATIONS PAIN CLINIC PFS, CLERGY, PUBLIC HEALTH REFERRALS PFS REFERRAL NEEDED?NO CLERGY REFERRAL NEEDED?NO PUBLIC HEALTH REFERRAL NEEDED?NO WAS THE PROVIDER NOTIFIED OF ANY PERTINENT INFO? N/A HAS THE PATIENT BEEN EDUCATED REGARDING HIS/HER PLAN OF CARE?YES HAS THE PATIENT BEEN EDUCATED REGARDING PAIN, THE RISK FOR PAIN, THE IMPORTANCE OF EFFECTIVE PAIN MANAGEMENT, AND THE PAIN ASSESSMENT PROCESS?YES ADVANCE DIRECTIVE ADVANCE DIRECTIVE DISCUSSED WITH PATIENT:YES PT DOES NOT HAVE ANY ADVANCED DIRECTIVES AND HE DECLINES INFORMATION ON HCP AT THIS TIME, STATES THAT HE HAS THE INFORMATION AT HOME. ASSISTANCE OFFERED IN COMPLETING HCP IF NEEDED. HOSPITALIZATION/MAJOR DIAGNOSTIC PROCEDURE [place] 09[place]2019 REVIEW OF SYSTEMS CONSTITUTIONAL: ANY RECENT FEVER OR ILLNESS NO . CHILLS NO . GASTROENTEROLOGY: BOWEL INCONTINENCE NO . ANY NEW CHANGE IN BOWEL CONTROL? NO . ABDOMINAL PAIN NO . CONSTIPATION NO . GENITOURINARY: ANY NEW CHANGE IN BLADDER CONTROL? NO . URINARY INCONTINENCE NO . CARDIOLOGY: CHEST PRESSURE NO . CHEST PAIN NO . RESPIRATORY: COUGH NO . SHORTNESS OF BREATH NO . VITAL SIGNS WT 250.6 LBS, HT 70 IN, BMI 35.95 INDEX, BP 152/79 MM HG, HR 61 /MIN, RR 18 /MIN, TEMP 96.5 F, OXYGEN SAT % 96%, SAFE IN ENV? 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 EXAMINATION GENERAL EXAMINATION: GENERALNO ACUTE DISTRESS, WELL NOURISHED AND HYDRATED. PSYCHAPPROPRIATE MOOD AND AFFECT . LUNGS:CLEAR TO AUSCULTATION BILATERALLY, NO WHEEZES, RHONCHI, RALES. HEART:NO MURMURS, REGULAR RATE AND RHYTHM. BACK:DENIES POINT TENDERNESS ALONG LUMBAR SPINE, SURROUNDING SKIN SHOWS NO ERYTHEMA, ECCHYMOSIS, INCREASED WARMTH, AND/OR SKIN ERUPTIONS NOTED. PATIENT ENDORSES INCREASED PAIN WITH FACET LOADING. . ASSESSMENTS SPONDYLOSIS OF LUMBOSACRAL REGION WITHOUT MYELOPATHY OR RADICULOPATHY - M47.817 (PRIMARY) TREATMENT SPONDYLOSIS OF LUMBOSACRAL REGION WITHOUT MYELOPATHY OR RADICULOPATHY NOTES: RF PROCEDURE L4-L5 L5-S1 LEFT SIDE. CLINICAL NOTES: 69-YEAR-OLD MALE IN FOR DIAGNOSTIC FACET BLOCK #2 FOLLOW-UP. GIVEN PRESENTING SYMPTOMS RECOMMEND RF PROCEDURE LEFT SIDE L4-L5 L5-S1 WITH POST PROCEDURAL FOLLOW-UP. PATIENT HAS EXPRESSED UNDERSTANDING OF AND WAS IN AGREEMENT WITH TREATMENT PLAN. GIVEN TIME TO ASK QUESTIONS AND EXPRESS CONCERNS. OTHERS NOTES: RADIOFREQUENCY ABLATION MATERIAL WAS PRINTED. PROCEDURE CODES FA211 ESTABILISHED PATIENT [facility] CHAR[facility] DISPOSITION & COMMUNICATION FOLLOW UP POSTPROCEDURE (REASON: RF PROCEDURE LEFT SIDE L4-L5 L5-S1) ELECTRONICALLY SIGNED BY MARIXA SANDRA ON 02/13/2020 AT 08:03 AM EDT DISCLAIMER : THIS IS A VISIT SUMMARY EXTRACTED FROM THE [employer] CHART. IT IS NOT A COPY OF THE [employer] PROGRESS NOTE. MYNOR
== END ==
LOC: M PAIN 09:45
PROVIDERS: ATTEND Family Medicine
DX: M47.817 Spondylosis without myelopathy or radiculopathy, lumbosacral region (principal)

== ENCOUNTER → 2020-03-11 | Outpatient (CLI) | payer MEDICARE, BC, OTHER ==
[~2020-03-11] MED LIST changes: -ASPI81TA85 PO; +ASPI81TA86 PO; +PANT40TA29 PO; -PANT40TA3 PO
== END ==
LOC: M LABSMTC 09:43
PROVIDERS: ATTEND Anesthesiology
DX: Z01.818 Encounter for other preprocedural examination (principal); Z11.59 Encounter for screening for other viral diseases
CPT/HCPCS: C9803; U0003

== ENCOUNTER → 2020-03-14 | Outpatient (CLI) | payer MEDICARE, BC, OTHER ==
[~2020-03-14] MED LIST changes: +BUPIVACAINE HCL 0.25% 30ML VIAL As Ordered ONE; +ISOVUE-M 300 61% 15ML VIAL As Ordered ONE; +LIDOCAINE 1% SDV 30ML VIAL As Ordered ONE; +dexameTHASONE 10MG/1ML VIAL PRES.FREE (J1100 PER 1MG) As Ordered ONE; +diazePAM 5 MG TAB As Ordered ONE; +oxyCODONE 5MG TAB As Ordered ONE
--- NOTE | 2020-03-14 15:13 | REP ---
C-ARM VIEWS OF THE LOWER LUMBAR SPINE: CLINICAL HISTORY: Pain. Multiple C-arm views of the lower lumbar spine performed during injection by Dr. Medeiros. [place] are seen along the margins of the lower lumbar spine. 71 seconds of fluoroscopy time utilized. Electronically Signed by Ashu Nava MD 03/17/2020 10:24 P
--- NOTE | 2020-03-16 03:27 | ECWPNPC ---
PATIENT NAME: TYE CLAUDIO : 1950 GENDER: MALE VISIT DATE: 03/14/2020 DISCHARGE DATE: 03/14/20 1230 VISIT LOCKED DATE TIME: PHYSICIAN: GARRETT MEDLEY MD RESOURCE: GARRETT MEDLEY MD REASON FOR APPOINTMENT 1. RF PROCEDURE LEFT SIDE L4-L5 L5-S1 HISTORY OF PRESENT ILLNESS GENERAL: -. FALL RISK SCREENING: SCREENING :NO FALLS REPORTED IN THE LAST YEAR PAIN SCREENING: PATIENT HAS A COMPLAINT OF ACUTE OR CHRONIC PAIN :YES LOCATION OF PAIN:LOW BACK, LEG(S) INTENSITY OF PAIN (SCALE OF 1 TO 10):8 AVERAGE 6-8 WHAT DOES YOUR PAIN FEEL LIKE:ACHING, INTERMITTENT, SHARP, STABBING, SORE, SHOOTING DURATION:INTERMITTENT MOSTLY WHEN HE IS ACTIVE PAIN IS INCREASED BY:ACTIVITIES, PROLONGED STANDING BENDING PAIN IS DECREASED BY:SITTING REST NURSING NOTE: -. PAIN CENTER INTAKE QUESTIONS: DO YOU HAVE A HISTORY OF MRSA? :NO DO YOU TAKE A BLOOD THINNERS? :NO DO YOU HAVE ANY BLEEDING DISORDERS? :NO ANY NEW NUMBNESS OR WEAKNESS IN YOUR LEGS OR ARMS? :NO ANY PACEMAKER,DEFIBRILLATOR, OR DORSAL COLUMN STIMULATOR? :NO DO YOU HAVE ANY RASHES OR OPEN SORES? :NO ARE YOU ALLERGIC TO IV DYE? :NO ARE YOU DIABETIC? :YES FSBS 117 AT 0700 PER PT ANY NEW PROBLEMS WITH YOUR MEDICATIONS? :NO HAVE YOU RECEIVED A VACCINE IN THE PAST 30 DAYS? :NO DO YOU PLAN TO RECEIVE A VACCINE IN THE NEXT 21 DAYS? :NO DO YOU TAKE ANY IMMUNOSUPPRESSIVE MEDICATIONS? :YES REMICADE ANY HISTORY OF SEIZURES? :NO ANY HISTORY OF CARDIAC ISSUES OR EVENTS? :NO DO YOU HAVE SLEEP APNEA? :YES DO YOU WEAR A CPAP?YES ANY RECENT HEAD INJURY? :NO DO YOU HAVE ANY NEW INFECTIONS? :NO IS THERE A CHANCE YOU COULD BE ? :NO ARE YOU BREAST FEEDING? :NO WHEN DID YOU LAST EAT? : -03/13/201999 WHEN DID YOU LAST DRINK? : -03/13/201999 WHAT DID YOU LAST DRINK? : - NAME OF PERSON DRIVING YOU HOME? : KELECHI DO YOU HAVE ANY OTHER QUESTIONS OR CONCERNS? : NO CURRENT MEDICATIONS TAKING ASPIRIN 81 81 MG TABLET CHEWABLE 1 TABLET ORALLY ONCE A DAY, NOTES: 03/13/202199 TAKING ATENOLOL 100 MG TABLET 1 TABLET ORALLY ONCE A DAY, NOTES: 03/13/202199 TAKING CITALOPRAM HYDROBROMIDE 20 MG TABLET 1 TABLET ORALLY ONCE A DAY, NOTES: 03/13/202199 TAKING FLONASE 50 MCG/DOSE INHALER 1 SPRAY IN EACH NOSTRIL NASALLY ONCE A DAILY-TAKES NEEDED, NOTES: 03/13/202199 TAKING HYDROCHLOROTHIAZIDE 25 MG TABLET 1 TABLET IN THE MORNING ORALLY ONCE A DAY, NOTES: 03/13/20 0800 TAKING NOVOLOG FLEXPEN 100 UNIT/ML SOLUTION PEN-INJECTOR SLIDING SCALE SUBCUTANEOUS , NOTES: 03/13/20 1800 TAKING LANTUS SOLOSTAR 100 UNIT/ML SOLUTION 60 UNITS SUBCUTANEOUS DAILY, NOTES: 03/13/202199 TAKING LISINOPRIL 40 MG TABLET 1 TABLET ORALLY ONCE A DAY, NOTES: 03/13/202199 TAKING PANTOPRAZOLE SODIUM 40 MG TABLET DELAYED RELEASE 1 TABLET ORALLY ONCE A DAY, NOTES: 03/13/202199 TAKING CRESTOR 20 MG TABLET 1 TABLET ORALLY ONCE A DAY, NOTES: 03/13/202199 TAKING METFORMIN HCL 500 MG TABLET 1 TABLET WITH MEALS ORALLY TWICE A DAY, NOTES: 03/13/202199 TAKING REMICADE 100 MG SOLUTION RECONSTITUTED 900 MG INTRAVENOUS EVERY 4 WEEKS, NOTES: 6 WEEKS TAKING IBUPROFEN 600 MG TABLET 1 TABLET WITH FOOD OR MILK NEEDED ORALLY THREE TIMES A DAY, NOTES: 03/13/202199 TAKING ACETAMINOPHEN 325 MG CAPSULE 1 CAPSULE NEEDED ORALLY EVERY 4 HRS, NOTES: 03/13/202199 TAKING EMPAGLIFLOZIN 25 MG TABLET 1 TABLET ORALLY ONCE A DAY, NOTES: 03/13/20 0800 TAKING GABAPENTIN 600 MG TABLET 1 TABLET ORALLY Q8H TID, NOTES: 03/13/202199 TAKING CICLOPIROX 0.77 % GEL 1 APPLICATION EXTERNALLY TWICE A DAY TO FEET AND BACK RASH, NOTES: 03/13/202199 TAKING VIT D-VIT E-SAFFLOWER OIL 1 CAP DAILY, NOTES: 03/13/202199 TAKING MULTI FOR HIM 50+ 1 CAP DAILY, NOTES: NONE RECENTLY TAKING MIRALAX - PACKET 1 PACKET MIXED WITH 8 OUNCES OF FLUID ORALLY ONCE A DAY, NOTES: 03/13/202199 MEDICATION LIST REVIEWED AND RECONCILED WITH THE PATIENT PAST MEDICAL HISTORY HYPERLIPIDEMIA HYPERTENSION DIABETES MELLITUS TYPE 2 ACID REFLUX ARTHRITIS ANKYLOSIS SPONDYLITIS/ ARTHRITIS HEALTH SPEC - SYRACUSE BACK PAIN ALLERGIES LIPITOR: MUSCLE PAIN - SIDE EFFECTS SURGICAL HISTORY LEFT KNEE SURGERY RIGHT FOOT BUNIONECTOMY FAMILY HISTORY FATHER: , DIAGNOSED WITH DIABETES MOTHER: ALIVE, UNSPECIFIED CEREBRAL ARTERY OCCLUSION WITH CEREBRAL INFARCTION, OTHER SPECIFIED CONDITIONS INFLUENCING HEALTH STATUS 4 SON(S) , 1 DAUGHTER(S) - HEALTHY. MOTHER HAS HISTORY OF ARTHRITIS AND STROKE. DENIES FAMILY HX OF MELANONA AND PANCREATIC CANCER. SOCIAL HISTORY GENERAL: TOBACCO USE ARE YOU A:NONSMOKER LATEX QUESTIONNAIRE LATEX ALLERGY : HAVE YOU EVER DEVELOPED ANY TYPE OF REACTION AFTER HANDLING LATEX PRODUCTS SUCH RUBBER GLOVES, CONDOMS, DIAPHRAGMS, BALLOONS, SOCKS, OR UNDERWEAR?NO LATEX ALLERGY : HAVE YOU EVER DEVELOPED ANY TYPE OF REACTION DURING OR AFTER DENTAL APPOINTMENT, VAGINAL/RECTAL EXAMINATION, SURGICAL PROCEDURE, OR ANY OTHER EXPOSURE?NO LATEX RISK : HAVE YOU EVER HAD ANY DIFFICULTY BREATHING OR HIVES AFTER EATING OR HANDLING ANY FRUITS, OR VEGETABLES; SUCH KIWI, BANANAS, STONE FRUITS, OR CHESTNUTSNO LATEX RISK : DO YOU HAVE A PREVIOUS PERSONAL HISTORY OF MORE THAN NINE SURGERIES, SPINA BIFIDA, OR REPEATED CATHERIZATIONS? NO LATEX RISK : ARE YOU FREQUENTLY EXPOSED TO LATEX PRODUCTS IN YOUR OCCUPATION?NO DATE ASKED : 03/13/2020 ALCOHOL SCREENING DID YOU HAVE A DRINK CONTAINING ALCOHOL IN THE PAST YEAR?YES HOW OFTEN DID YOU HAVE SIX OR MORE DRINKS ON ONE OCCASION IN THE PAST YEAR?NEVER (0 POINTS) HOW MANY DRINKS DID YOU HAVE ON A TYPICAL DAY WHEN YOU WERE DRINKING IN THE PAST YEAR?1 OR 2 (0 POINTS) HOW OFTEN DID YOU HAVE A DRINK CONTAINING ALCOHOL IN THE PAST YEAR?TWO TO FOUR TIMES A MONTH (2 POINTS) POINTS2 INTERPRETATIONNEGATIVE RECREATIONAL DRUG USE DRUG USE?NO CAFFEINE CAFFEINE USE?YES COFFEE DAILY RASTAFARI [id number] DRUZE LANGUAGE LANGUAGES SPOKEN:YAKUT LEARNING BARRIERS / SPECIAL NEEDS BARRIERS TO LEARNING?NO HEARING IMPAIRED?NO VISION IMPAIRED?YES :CORRECTIVE LENSES COGNITIVELY IMPAIRED?NO READINESS TO LEARN?YES LEARNING PREFERENCES?YES :DEMONSTRATION/VERBAL INSTRUCTION LEARNING CAPABILITIES PRESENT?YES EMOTIONAL BARRIERS?NO SPECIAL DEVICES?NO REAL ESTATE ANALYST NEEDED?NO DOMESTIC VIOLENCE DO YOU FEEL SAFE IN YOUR ENVIRONMENT?YES NEW PATIENT PAIN DIARY PATIENT DESCRIBES PAIN : ACHING, IT COMES AND GOES, SHARP, THROBBING, SHOOTING, FROM 0-10, WHAT LEVEL IS YOUR PAIN TODAY? 7, PRECIPITATING FACTORS ACTIVITY, WALKING, ALLEVIATING FACTORS REST, MEDICATIONS. PAIN CLINIC PFS, CLERGY, PUBLIC HEALTH REFERRALS PFS REFERRAL NEEDED?NO CLERGY REFERRAL NEEDED?NO PUBLIC HEALTH REFERRAL NEEDED?NO WAS THE PROVIDER NOTIFIED OF ANY PERTINENT INFO? N/A HAS THE PATIENT BEEN EDUCATED REGARDING HIS/HER PLAN OF CARE?YES HAS THE PATIENT BEEN EDUCATED REGARDING PAIN, THE RISK FOR PAIN, THE IMPORTANCE OF EFFECTIVE PAIN MANAGEMENT, AND THE PAIN ASSESSMENT PROCESS?YES ADVANCE DIRECTIVE ADVANCE DIRECTIVE DISCUSSED WITH PATIENT:YES 03/13/20 PT DOES NOT HAVE ANY ADVANCED DIRECTIVES AND HE DECLINES INFORMATION ON HCP AT THIS TIME, STATES THAT HE HAS THE INFORMATION AT HOME. ASSISTANCE OFFERED IN COMPLETING HCP IF NEEDED. HOSPITALIZATION/MAJOR DIAGNOSTIC PROCEDURE KNEE SURG DEHYDRATION AT [facility] 09/2019 VITAL SIGNS WT 245.8 LBS, HT 70 IN, BMI 35.26 INDEX, BP 119/73 MM HG, HR 68 /MIN, RR 18 /MIN, TEMP 96.4 F, OXYGEN SAT % 95%, SAFE IN ENV? (Y/N) YES, NA INITIALS SC 09:28. EXAMINATION GENERAL EXAMINATION: THE PATIENT IS ALERT, ORIENTED TIMES THREE AND COOPERATIVE. HEART SHOWS REGULAR RHYTHM, NO MURMURS AND NO GALLOPS. LUNGS ARE CLEAR TO AUSCULTATION. ASSESSMENTS SPONDYLOSIS WITHOUT MYELOPATHY OR RADICULOPATHY, LUMBAR REGION - M47.816 (PRIMARY) SPONDYLOSIS OF LUMBOSACRAL REGION WITHOUT MYELOPATHY OR RADICULOPATHY - M47.817 TREATMENT SPONDYLOSIS WITHOUT MYELOPATHY OR RADICULOPATHY, LUMBAR REGION MEDICATION: VALIUM TAB 5MG ORALLY (DIAZEPAM)MARILYN SOSA 03/14/2020 10:14:27 AM > VERIFIED CALI VIDES RN 03/14/2020 10:18:02 AM > LOT [id number]. EXPIRES 10/27. CALI VIDES RN 03/14/2020 10:29:15 AM > GIVEN AT 1022. MEDICATION: OXYCODONE HCL TAB 5MG ORALLY MARILYN SOSA 03/14/2020 10:14:01 AM > VERIFIED CALI VIDES RN 03/14/2020 10:19:36 AM > LOT [id number]. EXPIRES 10/2021. CALI VIDES RN 03/14/2020 10:30:36 AM > GIVEN AT 1022. SPONDYLOSIS OF LUMBOSACRAL REGION WITHOUT MYELOPATHY OR RADICULOPATHY SMC FACET BLOCK (PAIN)[id number] PROCEDURES PAIN NURSING RECORD PRE-PROCEDURE IV SITE N/A , PRE-PROCEDURE ORAL MEDICATIONS INSTRUCTED REGARDING POTENTIAL DIZZINESS AND DROWSINESS AFTER RECEIVING ORAL SEDATION MEDICATIONS. PROCEDURE IN ROOM 1050, PHYSICIAN IN ROOM 1116, START 1122, FINISH 1201, PHYSICIAN OUT OF ROOM 1205, OUT OF ROOM 1212, STEROID DEXAMETHASONE, O2 RA, ECG NORMAL SINUS, PATIENT SHIELDED YES, SAFETY STRAP NO, PREP CHLOROPREP Wili VIDES RN, IV INFUSED N/A, DRESSING TEGADERM DR. MEDLEY LOC: 1025, 1. ALERT, ORIENTED 1040, 1. ALERT, ORIENTED 1055, 1. ALERT, ORIENTED 1110, 1. ALERT, ORIENTED 1125 1. ALERT, ORIENTED, 1140 1. ALERT, ORIENTED, 1155 1. ALERT, ORIENTED, 1210 1. ALERT, ORIENTED, 1225, 1. ALERT, ORIENTED RESP: 1025 1. REGULAR, NO DYSPNEA, 1040 1. REGULAR, NO DYSPNEA, 1055 1. REGULAR, NO DYSPNEA, 1110 1. REGULAR, NO DYSPNEA, 1125 1. REGULAR, NO DYSPNEA, 1140 1. REGULAR, NO DYSPNEA, 1155 1. REGULAR, NO DYSPNEA, 1210 1. REGULAR, NO DYSPNEA, 1225, 1. REGULAR, NO DYSPNEA COLOR: 1025 1. PINK, 1040 1. PINK, 1055 1. PINK, 1110 1. PINK, 1125 1. PINK, 1140 1. PINK, 1155, 1. PINK 1210 1. PINK, 1225, 1. PINK SKIN: 1025 1. WARM, DRY, 1040 1. WARM, DRY, 1055 1. WARM, DRY, 1110 1. WARM, DRY, 1125 1. WARM, DRY, 1140 1. WARM, DRY, 1155 1. WARM, DRY, 1210 1. WARM, DRY, 1225, 1. WARM, DRY POSITION: 1025 2. SUPINE, 1040 2. SUPINE, 1055 1. PRONE, 1110 1. PRONE, 1125 1. PRONE, 1140 1. PRONE, 1155 1. PRONE, 1210 1. PRONE, 1225, 4. OTHER VITALS: 1025 135/71 64-16 95% 1040 132/78 93% 1055 131/67 64-18 95% 1110 130/77 61-16 95% 1125 140/83 65-16 95% 1140 148/88 66-16 96%. PULSE OXIMETER FELL OFF. DIRECTED BY DR. MEDLEY DUE TO TIMING DURING PROCEDURE TO LEAVE OFF TEMPORARILY. RESPIRATIONS REMAIN UNLABORED. COLOR REMAINS PINK. 1145 REPORTS NAUSEA. PULSE OXIMETER REAPPLIED. NO CHANGE IN VS NOTED. CM REMAINS NSR. 156/90 67-18 96% 1150 STATES NAUSEA RESOLVED. HR 64 PULSE OX 94%. 1200 136/75 64-16 94% 1210 137/82 68-16 94% 1225 139/80 67-16 95% DISCHARGE: POST PAIN 10/16, DRESSING SITE DRY AND INTACT, IV N/A, GAIT STEADY, TEACHING COMPLETED, PATIENT ACKNOWLEDGES UNDERSTANDING YES, PATIENT DISCHARGED AT 1229 PN RADIOFREQUENCY DATE OF PROCEDURE 03/14/2020 . THERMO LESION RADIOFREQUENCY > 80 DEGREES : [employer] SYSTEM SET AT 60* WITH TISSUE TARGET TEMP > 80* OR MORE. STRAIGHT NEEDLE . SIDE: : LEFT . LEVELS: : L4-L5, L5-S1. NEEDLE/CATHETER/GAUGE: : 17 . CANULA LENGTH: : 150 MM . ACTIVE TIP: : 4 MM . GROUNDING PAD PLACED ON AFFECTED SIDE (MUSCULAR AREA): : LUMBAR (POSTERIOR UPPER THIGH) LEFT. 1 ST LEVEL: : L3,INITAL POSTIVE SENSORY RESPONE (50 HZ) 0.4,MOTOR RESPONSE (2 HZ-UP TO 3 VOLTS) 3.0 ,PRE-LOCAL IMPEDENCE READING OHMS 360 ,POST-LOCAL IMPEDENCE READING OHMS 300 ,DURING RF IMPEDENCE READING OHMS 269 , 2 ND LEVEL: : L4,INITIAL POSITIVE SENSORY RESPONSE (50 HZ) 0.8,MOTOR RESPONSE (2 HZ- UP TO 3 VOLTS) 3.0 ,PRE-LOCAL IMPEDENCE READING OHMS 480 ,POST-LOCAL IMEPEDENCE READING OHMS 366 ,DURING RF IMPEDENCE READING OHMS 290 , 3 RD LEVEL: : L5,INITIAL POSITIVE SENSORY RESPONSE (50 HZ) 0.9,MOTOR RESPONSE (2HZ- UP TO 3 VOLTS) 3.0 ,PRE- LOCAL IMPEDENCE READING OHMS 333 ,POST-LOCAL IMPEDENCE READING OHMS 261 ,DURING RF IMPEDENCE READING OHMS 260 , PRE PROCEDURE DIAGNOSES 1. LUMBAR SPONDYLOSIS. 2. LUMBOSACRAL SPONDYLOSIS POST PROCEDURE DIAGNOSES 1. LUMBAR SPONDYLOSIS. 2. LUMBOSACRAL SPONDYLOSIS PROCEDURE LEFT L4-L5 AND LEFT L5-S1 LUMBAR FACET RADIOFREQUENCY SURGEON DR. GARRETT MEDLEY DISTRIBUTION ACCOUNTING CLERK NONE ANESTHESIA LOCAL PRE PROCEDURE REPORT THE PATIENT HAS HISTORY OF CHRONIC LOW BACK PAIN. I EVALUATED THE PATIENT AND REVIEWED THE CHART. I WENT OVER THE RISKS, ALTERNATIVES, AND BENEFITS ASSOCIATED WITH THIS PROCEDURE. I DISCUSSED THAT THE USE OF STEROIDS MAY CONTRIBUTE TO IMMUNOSUPPRESSION OF THE PATIENT'S BODY AGAINST INFECTIONS SUCH COVID-19. THE PATIENT IS AWARE OF THE POTENTIAL COMPLICATIONS ASSOCIATED WITH THIS VIRUS, INCLUDING, BUT NOT LIMITED TO, . THE PATIENT WOULD LIKE TO PROCEED AND GAVE CONSENT TO PERFORM THE PROCEDURE. THE PATIENT DENIES UNEXPLAINABLE WEIGHT LOSS, FEVER, CHILLS OR NEW CHANGES IN URINARY OR BOWEL CONTROL. THE PATIENT IS COVID-19 NEGATIVE DESCRIPTION OF PROCEDURE THE PATIENT WAS BROUGHT TO THE PROCEDURE ROOM AND PLACED IN THE PRONE POSITION. A TIMEOUT WAS PERFORMED WHERE LATERALITY AND THE SITE OF THE PROCEDURE WERE CHECKED AND CONFIRMED WITH EVERYONE IN THE ROOM. THE LUMBOSACRAL AREA WAS CLEANED WITH CHLORAPREP SOLUTION AND DRAPED ASEPTICALLY. THE PROCEDURE WAS DONE UNDER STERILE CONDITIONS. UNDER FLUOROSCOPIC GUIDANCE, TARGETS WERE SELECTED AT THE INTERSECTION OF THE LEFT TRANSVERSE PROCESS OF L4, L5 AND ALA OF S1 WITH ITS RESPECTIVE SUPERIOR ARTICULAR PROCESS. LIDOCAINE WAS USED TO NUMB THE SKIN AND THE SUBCUTANEOUS TISSUE BELOW IT. RADIOFREQUENCY CANNULAS, 17-GAUGE, 150 MM LONG WITH 4 MM ACTIVE TIP, WERE ADVANCED UNDER FLUOROSCOPIC GUIDANCE AND FOLLOWING PATIENT FEEDBACK UNTIL THE TARGET AREA WAS REACHED. POSITION OF THE CANNULA WAS VERIFIED WITH AP AND LATERAL VIEWS. AFTER PROPER POSITION OF THE CANNULA WAS ACHIEVED, WE WORKED WITH THE LEFT SELECTED MEDIAN BRANCHES OF L3, L4 AND THE DORSAL RAMI OF L5 WE MEASURED THE CORRESPONDING IMPEDANCES AND MOTOR RESPONSES INDICATED IN THE RADIOFREQUENCY WORK SHEET. POSITION OF THE CANNULA WAS VERIFIED AGAIN WITH AP AND LATERAL VIEWS. LIDOCAINE 1%, 2 ML, WAS INJECTED AT EACH LEVEL. RADIOFREQUENCY WAS DONE AT EACH LEVEL USING THE [employer] SYSTEM-- COOLED RF-- WITH A SETTING AT THE MACHINE OF 60 DEGREES WITH A TARGET TISSUE TEMPERATURE OF 80 TO 90 DEGREES FOR A MINIMUM OF 150 SECONDS. AFTER RADIOFREQUENCY WAS DONE, THE DEXAMETHASONE 2 MG WAS INJECTED AT EACH SITE. BUPIVACAINE 0.125%, 7 ML, WAS THEN USED TO FLUSH EACH SITE. THERE WAS NO EVIDENCE OF BLOOD, PARESTHESIA OR CEREBROSPINAL FLUID DURING THE PROCEDURE. THE PATIENT WAS SENT TO THE RECOVERY ROOM. THE PATIENT WAS MOVING THE EXTREMITIES AND DOING WELL. EBL LESS THAN 5 ML. THERE WERE NO COMPLICATIONS DURING THE PROCEDURE. FLUOROSCOPY TIME WAS 1 MINUTE 10 SECONDS POST PROCEDURE NOTE THE PATIENT WILL BE SEEN IN A FOLLOW UP IN THE NEXT FEW WEEKS. INSTRUCTIONS WERE GIVEN, QUESTIONS WERE ANSWERED, AND THE PATIENT EXPRESSED UNDERSTANDING AND AGREES WITH THE PLAN. THE PATIENT IS AWARE TO STAY HOME FOR THE NEXT WEEK, IF POSSIBLE, DUE TO COVID-19. I, MELQUIADES GONCALVES, DOCUMENTED THE ABOVE INFORMATION ACTING A SCRIBE FOR DR. MEDLEY. I HAVE REVIEWED THE ABOVE DOCUMENT, WRITTEN BY MELQUIADES GONCALVES, EDMARIBE, AND I VERIFY THAT IT IS ACCURATE PROCEDURE CODES 98452 DESTROY LUMB/SAC FACET JNT, [place]IF[place]: [place] [address] DESTROY L/S FACET JNT ADDL, MODIFIERS: LT DISPOSITION & COMMUNICATION FOLLOW UP F/UP WITH HIGH [employer] SCIENCE TEACHER (REASON: POST LT L4-L5, L5-S1 COOL RF) ELECTRONICALLY SIGNED BY GARRETT MEDLEY MD, MD ON 03/15/2020 AT 10:49 AM EDT DISCLAIMER : THIS IS A VISIT SUMMARY EXTRACTED FROM THE [employer] CHART. IT IS NOT A COPY OF THE [employer] PROGRESS NOTE. MTDD
== END ==
LOC: M PAIN 09:30
PROVIDERS: ATTEND Anesthesiology
DX: M47.816 Spondylosis without myelopathy or radiculopathy, lumbar region (principal); M47.817 Spondylosis without myelopathy or radiculopathy, lumbosacral region
CPT/HCPCS: 64635; 64636; J1100; Q9967

== ENCOUNTER → 2020-04-15 | Outpatient (CLI) | payer MEDICARE, BC, OTHER ==
[~2020-04-15] MED LIST changes: -BUPIVACAINE HCL 0.25% 30ML VIAL As Ordered ONE; -ISOVUE-M 300 61% 15ML VIAL As Ordered ONE; -LIDOCAINE 1% SDV 30ML VIAL As Ordered ONE; -dexameTHASONE 10MG/1ML VIAL PRES.FREE (J1100 PER 1MG) As Ordered ONE; -diazePAM 5 MG TAB As Ordered ONE; -oxyCODONE 5MG TAB As Ordered ONE
== END ==
LOC: M PAIN 08:45
PROVIDERS: ATTEND Family Medicine
DX: M47.816 Spondylosis without myelopathy or radiculopathy, lumbar region (principal); M47.817 Spondylosis without myelopathy or radiculopathy, lumbosacral region

== ENCOUNTER → 2020-06-14 | Outpatient (CLI) | payer MEDICARE, BC, OTHER ==
--- NOTE | 2020-06-17 10:05 | ECWPNPC ---
PATIENT NAME: TYE CLAUDIO : 1950 GENDER: MALE VISIT DATE: 06/14/2020 DISCHARGE DATE: 06/14/20 1052 VISIT LOCKED DATE TIME: PHYSICIAN: LULY JOHNSON RESOURCE: LULY JOHNSON REASON FOR APPOINTMENT 1. BACK HISTORY OF PRESENT ILLNESS DEPRESSION SCREENING: PHQ-2 (2015 EDITION) LITTLE INTEREST OR PLEASURE IN DOING THINGS?NOT AT ALL FEELING DOWN, DEPRESSED, OR HOPELESS?NOT AT ALL TOTAL SCORE0 70-YEAR-OLD MALE IN FOR CHRONIC PAIN FOLLOW-UP. HE RATES HIS PAIN CURRENTLY AT A 6 OUT OF 10 AND DESCRIBES IT ACHING AND STABBING. HE FEELS THE MEDICATIONS ARE HELPFUL AND DENIES MED SIDE EFFECTS AT THIS TIME. HE DOES ADMIT TO NEW-ONSET OF NECK PAIN. GENERAL: -. FALL RISK SCREENING: SCREENING :NO FALLS REPORTED IN THE LAST YEAR PAIN SCREENING: PATIENT HAS A COMPLAINT OF ACUTE OR CHRONIC PAIN :YES LOCATION OF PAIN:LOW BACK INTENSITY OF PAIN (SCALE OF 1 TO 10):6 WHAT DOES YOUR PAIN FEEL LIKE:ACHING, STABBING DURATION:MAINLY DURING THE DAY, INTERMITTENT PAIN IS INCREASED BY:ACTIVITIES PAIN IS DECREASED BY:USE OF PAIN MEDICATIONS NURSING NOTE: -. PAIN CENTER INTAKE QUESTIONS: DO YOU HAVE A HISTORY OF MRSA? :NO DO YOU TAKE A BLOOD THINNERS? :NO DO YOU HAVE ANY BLEEDING DISORDERS? :NO ANY NEW NUMBNESS OR WEAKNESS IN YOUR LEGS OR ARMS? :NO ANY PACEMAKER,DEFIBRILLATOR, OR DORSAL COLUMN STIMULATOR? :NO DO YOU HAVE ANY RASHES OR OPEN SORES? :NO ARE YOU ALLERGIC TO IV DYE? :NO ARE YOU DIABETIC? :YES ANY NEW PROBLEMS WITH YOUR MEDICATIONS? :NO HAVE YOU RECEIVED A VACCINE IN THE PAST 30 DAYS? :NO DO YOU PLAN TO RECEIVE A VACCINE IN THE NEXT 21 DAYS? :YES PATIENT INTENDS TO GET HIS FLU SHOT SOON DO YOU NEED ANY PRESCRIPTION? :NO DO YOU TAKE ANY IMMUNOSUPPRESSIVE MEDICATIONS? :YES REMICADE IS THERE A CHANCE YOU COULD BE ? :NO ARE YOU BREAST FEEDING? :NO CURRENT MEDICATIONS TAKING ASPIRIN 81 81 MG TABLET CHEWABLE 1 TABLET ORALLY ONCE A DAY, NOTES: 03/13/202199 TAKING ATENOLOL 100 MG TABLET 1 TABLET ORALLY ONCE A DAY, NOTES: 03/13/202199 TAKING CITALOPRAM HYDROBROMIDE 20 MG TABLET 1 TABLET ORALLY ONCE A DAY, NOTES: 03/13/202199 TAKING FLONASE 50 MCG/DOSE INHALER 1 SPRAY IN EACH NOSTRIL NASALLY ONCE A DAILY-TAKES NEEDED, NOTES: 03/13/202199 TAKING HYDROCHLOROTHIAZIDE 25 MG TABLET 1 TABLET IN THE MORNING ORALLY ONCE A DAY, NOTES: 03/13/20 08 TAKING NOVOLOG FLEXPEN 100 UNIT/ML SOLUTION PEN-INJECTOR SLIDING SCALE SUBCUTANEOUS , NOTES: 03/13/201799 TAKING LANTUS SOLOSTAR 100 UNIT/ML SOLUTION 60 UNITS SUBCUTANEOUS DAILY, NOTES: 03/13/202199 TAKING LISINOPRIL 40 MG TABLET 1 TABLET ORALLY ONCE A DAY, NOTES: 03/13/202199 TAKING PANTOPRAZOLE SODIUM 40 MG TABLET DELAYED RELEASE 1 TABLET ORALLY ONCE A DAY, NOTES: 03/13/202199 TAKING CRESTOR 20 MG TABLET 1 TABLET ORALLY ONCE A DAY, NOTES: 03/13/202199 TAKING METFORMIN HCL 500 MG TABLET 1 TABLET WITH MEALS ORALLY TWICE A DAY, NOTES: 03/13/202199 TAKING REMICADE 100 MG SOLUTION RECONSTITUTED 900 MG INTRAVENOUS EVERY 4 WEEKS, NOTES: 6 WEEKS TAKING IBUPROFEN 600 MG TABLET 1 TABLET WITH FOOD OR MILK NEEDED ORALLY THREE TIMES A DAY, NOTES: 03/13/202199 TAKING ACETAMINOPHEN 325 MG CAPSULE 1 CAPSULE NEEDED ORALLY EVERY 4 HRS, NOTES: 03/13/202199 TAKING EMPAGLIFLOZIN 25 MG TABLET 1 TABLET ORALLY ONCE A DAY, NOTES: 03/13/20 0800 TAKING GABAPENTIN 600 MG TABLET 1 TABLET ORALLY Q8H TID, NOTES: 03/13/202199 TAKING CICLOPIROX 0.77 % GEL 1 APPLICATION EXTERNALLY TWICE A DAY TO FEET AND BACK RASH, NOTES: 03/13/202199 TAKING VIT D-VIT E-SAFFLOWER OIL 1 CAP DAILY, NOTES: 03/13/202199 TAKING MULTI FOR HIM 50+ 1 CAP DAILY, NOTES: NONE RECENTLY TAKING MIRALAX - PACKET 1 PACKET MIXED WITH 8 OUNCES OF FLUID ORALLY ONCE A DAY, NOTES: 03/13/202199 MEDICATION LIST REVIEWED AND RECONCILED WITH THE PATIENT PAST MEDICAL HISTORY HYPERLIPIDEMIA HYPERTENSION DIABETES MELLITUS TYPE 2 ACID REFLUX ARTHRITIS ANKYLOSIS SPONDYLITIS/ ARTHRITIS HEALTH SPEC - [place] BACK PAIN ALLERGIES LIPITOR: MUSCLE PAIN - SIDE EFFECTS SURGICAL HISTORY LEFT KNEE SURGERY RIGHT FOOT BUNIONECTOMY FAMILY HISTORY FATHER: , DIAGNOSED WITH DIABETES MOTHER: ALIVE, UNSPECIFIED CEREBRAL ARTERY OCCLUSION WITH CEREBRAL INFARCTION, OTHER SPECIFIED CONDITIONS INFLUENCING HEALTH STATUS 4 SON(S) , 1 DAUGHTER(S) - HEALTHY. MOTHER HAS HISTORY OF ARTHRITIS AND STROKE. DENIES FAMILY HX OF MELANONA AND PANCREATIC CANCER. SOCIAL HISTORY GENERAL: TOBACCO USE ARE YOU A:NONSMOKER LATEX QUESTIONNAIRE LATEX ALLERGY : HAVE YOU EVER DEVELOPED ANY TYPE OF REACTION AFTER HANDLING LATEX PRODUCTS SUCH RUBBER GLOVES, CONDOMS, DIAPHRAGMS, BALLOONS, SOCKS, OR UNDERWEAR?NO LATEX ALLERGY : HAVE YOU EVER DEVELOPED ANY TYPE OF REACTION DURING OR AFTER DENTAL APPOINTMENT, VAGINAL/RECTAL EXAMINATION, SURGICAL PROCEDURE, OR ANY OTHER EXPOSURE?NO LATEX RISK : HAVE YOU EVER HAD ANY DIFFICULTY BREATHING OR HIVES AFTER EATING OR HANDLING ANY FRUITS, OR VEGETABLES; SUCH KIWI, BANANAS, STONE FRUITS, OR CHESTNUTSNO LATEX RISK : DO YOU HAVE A PREVIOUS PERSONAL HISTORY OF MORE THAN NINE SURGERIES, SPINA BIFIDA, OR REPEATED CATHERIZATIONS? NO LATEX RISK : ARE YOU FREQUENTLY EXPOSED TO LATEX PRODUCTS IN YOUR OCCUPATION?NO DATE ASKED : 06/14/2020 ALCOHOL SCREENING DID YOU HAVE A DRINK CONTAINING ALCOHOL IN THE PAST YEAR?YES HOW OFTEN DID YOU HAVE SIX OR MORE DRINKS ON ONE OCCASION IN THE PAST YEAR?NEVER (0 POINTS) HOW MANY DRINKS DID YOU HAVE ON A TYPICAL DAY WHEN YOU WERE DRINKING IN THE PAST YEAR?1 OR 2 (0 POINTS) HOW OFTEN DID YOU HAVE A DRINK CONTAINING ALCOHOL IN THE PAST YEAR?TWO TO FOUR TIMES A MONTH (2 POINTS) POINTS2 INTERPRETATIONNEGATIVE RECREATIONAL DRUG USE DRUG USE?NO CAFFEINE CAFFEINE USE?YES COFFEE DAILY BUDDHIST [id number] CONFUCIANISM LANGUAGE LANGUAGES SPOKEN:FAROESE LEARNING BARRIERS / SPECIAL NEEDS BARRIERS TO LEARNING?NO HEARING IMPAIRED?NO VISION IMPAIRED?YES COGNITIVELY IMPAIRED?NO :CORRECTIVE LENSES READINESS TO LEARN?YES LEARNING PREFERENCES?YES :DEMONSTRATION/VERBAL INSTRUCTION LEARNING CAPABILITIES PRESENT?YES EMOTIONAL BARRIERS?NO SPECIAL DEVICES?NO BULK FILLER NEEDED?NO DOMESTIC VIOLENCE DO YOU FEEL SAFE IN YOUR ENVIRONMENT?YES NEW PATIENT PAIN DIARY PATIENT DESCRIBES PAIN : ACHING, IT COMES AND GOES, SHARP, THROBBING, SHOOTING, FROM 0-10, WHAT LEVEL IS YOUR PAIN TODAY? 7, PRECIPITATING FACTORS ACTIVITY, WALKING, ALLEVIATING FACTORS REST, MEDICATIONS. PAIN CLINIC PFS, CLERGY, PUBLIC HEALTH REFERRALS PFS REFERRAL NEEDED?NO CLERGY REFERRAL NEEDED?NO PUBLIC HEALTH REFERRAL NEEDED?NO WAS THE PROVIDER NOTIFIED OF ANY PERTINENT INFO? N/A HAS THE PATIENT BEEN EDUCATED REGARDING HIS/HER PLAN OF CARE?YES HAS THE PATIENT BEEN EDUCATED REGARDING PAIN, THE RISK FOR PAIN, THE IMPORTANCE OF EFFECTIVE PAIN MANAGEMENT, AND THE PAIN ASSESSMENT PROCESS?YES ADVANCE DIRECTIVE ADVANCE DIRECTIVE DISCUSSED WITH PATIENT:YES PT DOES NOT HAVE ANY ADVANCED DIRECTIVES AND HE DECLINES INFORMATION ON HCP AT THIS TIME, STATES THAT HE HAS THE INFORMATION AT HOME. ASSISTANCE OFFERED IN COMPLETING HCP IF NEEDED. HOSPITALIZATION/MAJOR DIAGNOSTIC PROCEDURE KNEE SURG DEHYDRATION AT [facility] 09/2019 REVIEW OF SYSTEMS CONSTITUTIONAL: ANY RECENT FEVER NO . CHILLS NO . WEIGHT CHANGE OF UNKNOWN REASONS NO . GASTROENTEROLOGY: NEW UNEXPLAINABLE CHANGES IN BOWEL CONTROL NO . CONSTIPATION NO . GENITOURINARY: ANY NEW CHANGE IN BLADDER CONTROL? NO . NEUROLOGY: NEW ONSET DIZZINESS OR NEUROLOGICAL CHANGES NOT MENTIONED NO . NEW NUMBNESS OR PAIN PATTERNS NOT MENTIONED AND PERTINENT TO TODAY'S VISIT NO . CARDIOLOGY: NEW CHEST PRESSURE NO . NEW CHEST PAIN NO . RESPIRATORY: UNEXPLAINABLE COUGH NO . NEW SHORTNESS OF BREATH NO . VITAL SIGNS WT 247.2 LBS, HT 70 IN, BMI 35.47 INDEX, BP 106/59 MM HG, HR 69 /MIN, RR 18 /MIN, TEMP 96.2 F, OXYGEN SAT % 97%, NA INITIALS AW 1025, REVIEWED BY: [employer]. EXAMINATION GENERAL EXAMINATION: GENERALNO ACUTE DISTRESS, WELL NOURISHED AND HYDRATED. PSYCHAPPROPRIATE MOOD AND AFFECT . LUNGS:CLEAR TO AUSCULTATION BILATERALLY, NO WHEEZES, RHONCHI, RALES. HEART:NO MURMURS, REGULAR RATE AND RHYTHM. ASSESSMENTS SPONDYLOSIS OF LUMBOSACRAL REGION WITHOUT MYELOPATHY OR RADICULOPATHY - M47.817 (PRIMARY) TREATMENT SPONDYLOSIS OF LUMBOSACRAL REGION WITHOUT MYELOPATHY OR RADICULOPATHY CLINICAL NOTES: 70-YEAR-OLD MALE IN FOR CHRONIC PAIN FOLLOW-UP. GIVEN PRESENTING SYMPTOMS RECOMMEND CONTINUATION OF CURRENT MEDICATION REGIMEN WITH FOLLOW-UP IN 2 MONTHS. DISCUSSED NECK PAIN WITH PATIENT AND AT THIS TIME HE DOES NOT WANT TO SEEK TREATMENT BUT HE STATES THAT SHOULD HIS PAIN PERSIST OR GET WORSE HE WILL CALL THIS ENGINEERING DESIGN MANAGER AND SCHEDULE AN APPOINTMENT. PATIENT HAS EXPRESSED UNDERSTANDING OF AND WAS IN AGREEMENT WITH TREATMENT PLAN. GIVEN TIME TO ASK QUESTIONS AND EXPRESS CONCERNS. . PREVENTIVE MEDICINE PAIN CLINIC TEACHING: THE PATIENT HAS BEEN EDUCATED REGARDING PAIN, THE RISK FOR PAIN, THE IMPORTANCE OF EFFECTIVE PAIN MANAGEMENT, AND THE PAIN ASSESSMENT PROCESS. : DISCUSSED CARE PLAN WITH PATIENT, PATIENT VERBALIZES UNDERSTANDING PROCEDURE CODES FA211 ESTABILISHED PATIENT [facility] FAC[facility] CHARGE DISPOSITION & COMMUNICATION FOLLOW UP 2 MONTHS (REASON: BACK PAIN) ELECTRONICALLY SIGNED BY MARIXA SANDRA ON 06/17/2020 AT 09:24 AM EDT DISCLAIMER : THIS IS A VISIT SUMMARY EXTRACTED FROM THE [employer] CHART. IT IS NOT A COPY OF THE [employer] PROGRESS NOTE. MYNOR
== END ==
LOC: M PAIN 10:15
PROVIDERS: ATTEND Family Medicine
DX: M47.817 Spondylosis without myelopathy or radiculopathy, lumbosacral region (principal); G89.29 Other chronic pain; E78.5 Hyperlipidemia, unspecified; I10 Essential (primary) hypertension; E11.9 Type 2 diabetes mellitus without complications; K21.9 Gastro-esophageal reflux disease without esophagitis; Z88.8 Allergy status to other drugs, medicaments and biological substances; Z79.1 Long term (current) use of non-steroidal anti-inflammatories (NSAID); Z79.82 Long term (current) use of aspirin; Z79.899 Other long term (current) 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

== ENCOUNTER → 2020-08-10 | Outpatient (CLI) | payer MEDICARE, BC, OTHER ==
[~2020-08-10] MED LIST changes: +ECOT81TA5 PO; +FLUTISP; +HYDR25TAB PO; +INSULANT SC; +JARD1TAB PO; +LISI40TA PO; +METF750T36 PO; +ZOCO80TA PO
== END ==
LOC: M LABSMTC 13:11
PROVIDERS: ATTEND Nurse Practitioner Family
DX: Z01.812 Encounter for preprocedural laboratory examination (principal); Z20.828 Contact with and (suspected) exposure to other viral communicable diseases

== ENCOUNTER → 2020-08-14 | Outpatient (CLI) | payer MEDICARE, BC, OTHER ==
--- NOTE | 2020-08-16 06:42 | ECWPNPC ---
PATIENT NAME: TEY CLAUDIO : 1950 GENDER: MALE VISIT DATE: 08/14/2020 DISCHARGE DATE: 08/14/20 1047 VISIT LOCKED DATE TIME: PHYSICIAN: LULY JOHNSON RESOURCE: LULY JOHNSON REASON FOR APPOINTMENT 1. BACK HISTORY OF PRESENT ILLNESS GENERAL: -70-YEAR-OLD MALE IN FOR CHRONIC PAIN FOLLOW-UP. HE RATES HIS PAIN CURRENTLY AT A 7-8 OUT OF 10 AND DESCRIBES IT AN ACHING AND STABBING PAIN. PATIENT HAS HAD RADIOFREQUENCIES PERFORMED IN THE PAST WITH GOOD RESULTS AND WE WILL DISCUSS REPEAT PROCEDURES TODAY. FALL RISK SCREENING: SCREENING :NO FALLS REPORTED IN THE LAST YEAR PAIN SCREENING: PATIENT HAS A COMPLAINT OF ACUTE OR CHRONIC PAIN :YES LOCATION OF PAIN:LOW BACK INTENSITY OF PAIN (SCALE OF 1 TO 10):7 WHAT DOES YOUR PAIN FEEL LIKE:ACHING, BURNING, SHARP, STABBING DURATION:CONTINOUS PAIN IS INCREASED BY:ACTIVITIES PAIN IS DECREASED BY:USE OF PAIN MEDICATIONS TREATMENT/MEDICATIONS USED TO MANAGE PAIN:OPIOIDS LEVEL OF RELIEF FROM PAIN TREATMENTS IN THE PAST:50% PAIN HAS INTERFERED WITH THE FOLLOWING:BATHING/DRESSING, WALKING ABILITY, HOUSEWORK, SLEEP, TRANSPORTATION, TOILETING NURSING NOTE: -. PAIN CENTER INTAKE QUESTIONS: DO YOU HAVE A HISTORY OF MRSA? :NO DO YOU TAKE A BLOOD THINNERS? :NO DO YOU HAVE ANY BLEEDING DISORDERS? :NO ANY NEW NUMBNESS OR WEAKNESS IN YOUR LEGS OR ARMS? :NO ANY PACEMAKER,DEFIBRILLATOR, OR DORSAL COLUMN STIMULATOR? :NO DO YOU HAVE ANY RASHES OR OPEN SORES? :NO ARE YOU ALLERGIC TO IV DYE? :NO ARE YOU DIABETIC? :YES ANY NEW PROBLEMS WITH YOUR MEDICATIONS? :NO HAVE YOU RECEIVED A VACCINE IN THE PAST 30 DAYS? :NO DO YOU PLAN TO RECEIVE A VACCINE IN THE NEXT 21 DAYS? :NO DO YOU NEED ANY PRESCRIPTION? :NO DO YOU TAKE ANY IMMUNOSUPPRESSIVE MEDICATIONS? :NO IS THERE A CHANCE YOU COULD BE ? :NO ARE YOU BREAST FEEDING? :NO CURRENT MEDICATIONS TAKING ASPIRIN 81 81 MG TABLET CHEWABLE 1 TABLET ORALLY ONCE A DAY TAKING ATENOLOL 100 MG TABLET 1 TABLET ORALLY ONCE A DAY TAKING CITALOPRAM HYDROBROMIDE 20 MG TABLET 1 TABLET ORALLY ONCE A DAY TAKING FLONASE 50 MCG/DOSE INHALER 1 SPRAY IN EACH NOSTRIL NASALLY ONCE A DAILY-TAKES NEEDED TAKING HYDROCHLOROTHIAZIDE 25 MG TABLET 1 TABLET IN THE MORNING ORALLY ONCE A DAY TAKING NOVOLOG FLEXPEN 100 UNIT/ML SOLUTION PEN-INJECTOR SLIDING SCALE SUBCUTANEOUS TAKING LANTUS SOLOSTAR 100 UNIT/ML SOLUTION 60 UNITS SUBCUTANEOUS DAILY TAKING LISINOPRIL 40 MG TABLET 1 TABLET ORALLY ONCE A DAY TAKING PANTOPRAZOLE SODIUM 40 MG TABLET DELAYED RELEASE 1 TABLET ORALLY ONCE A DAY TAKING CRESTOR 20 MG TABLET 1 TABLET ORALLY ONCE A DAY TAKING METFORMIN HCL 500 MG TABLET 1 TABLET WITH MEALS ORALLY TWICE A DAY TAKING REMICADE 100 MG SOLUTION RECONSTITUTED 900 MG INTRAVENOUS EVERY 4 WEEKS TAKING IBUPROFEN 600 MG TABLET 1 TABLET WITH FOOD OR MILK NEEDED ORALLY THREE TIMES A DAY TAKING ACETAMINOPHEN 325 MG CAPSULE 1 CAPSULE NEEDED ORALLY EVERY 4 HRS TAKING EMPAGLIFLOZIN 25 MG TABLET 1 TABLET ORALLY ONCE A DAY TAKING GABAPENTIN 600 MG TABLET 1 TABLET ORALLY Q8H TID TAKING CICLOPIROX 0.77 % GEL 1 APPLICATION EXTERNALLY TWICE A DAY TO FEET AND BACK RASH TAKING VIT D-VIT E-SAFFLOWER OIL 1 CAP DAILY TAKING MULTI FOR HIM 50+ 1 CAP DAILY TAKING MIRALAX - PACKET 1 PACKET MIXED WITH 8 OUNCES OF FLUID ORALLY ONCE A DAY MEDICATION LIST REVIEWED AND RECONCILED WITH THE PATIENT PAST MEDICAL HISTORY HYPERLIPIDEMIA HYPERTENSION DIABETES MELLITUS TYPE 2 ACID REFLUX ARTHRITIS ANKYLOSIS SPONDYLITIS/ ARTHRITIS HEALTH SPEC - [place] BACK PAIN ALLERGIES LIPITOR: MUSCLE PAIN - SIDE EFFECTS SURGICAL HISTORY LEFT KNEE SURGERY RIGHT FOOT BUNIONECTOMY FAMILY HISTORY FATHER: , DIAGNOSED WITH DIABETES MOTHER: ALIVE, UNSPECIFIED CEREBRAL ARTERY OCCLUSION WITH CEREBRAL INFARCTION, OTHER SPECIFIED CONDITIONS INFLUENCING HEALTH STATUS 4 SON(S) , 1 DAUGHTER(S) - HEALTHY. MOTHER HAS HISTORY OF ARTHRITIS AND STROKE. DENIES FAMILY HX OF MELANONA AND PANCREATIC CANCER. SOCIAL HISTORY GENERAL: TOBACCO USE ARE YOU A:NONSMOKER LATEX QUESTIONNAIRE LATEX ALLERGY : HAVE YOU EVER DEVELOPED ANY TYPE OF REACTION AFTER HANDLING LATEX PRODUCTS SUCH RUBBER GLOVES, CONDOMS, DIAPHRAGMS, BALLOONS, SOCKS, OR UNDERWEAR?NO LATEX ALLERGY : HAVE YOU EVER DEVELOPED ANY TYPE OF REACTION DURING OR AFTER DENTAL APPOINTMENT, VAGINAL/RECTAL EXAMINATION, SURGICAL PROCEDURE, OR ANY OTHER EXPOSURE?NO DATE ASKED : 06/14/2020 LATEX RISK : HAVE YOU EVER HAD ANY DIFFICULTY BREATHING OR HIVES AFTER EATING OR HANDLING ANY FRUITS, OR VEGETABLES; SUCH KIWI, BANANAS, STONE FRUITS, OR CHESTNUTSNO LATEX RISK : DO YOU HAVE A PREVIOUS PERSONAL HISTORY OF MORE THAN NINE SURGERIES, SPINA BIFIDA, OR REPEATED CATHERIZATIONS? NO LATEX RISK : ARE YOU FREQUENTLY EXPOSED TO LATEX PRODUCTS IN YOUR OCCUPATION?NO ALCOHOL SCREENING DID YOU HAVE A DRINK CONTAINING ALCOHOL IN THE PAST YEAR?YES HOW OFTEN DID YOU HAVE SIX OR MORE DRINKS ON ONE OCCASION IN THE PAST YEAR?NEVER (0 POINTS) HOW MANY DRINKS DID YOU HAVE ON A TYPICAL DAY WHEN YOU WERE DRINKING IN THE PAST YEAR?1 OR 2 (0 POINTS) HOW OFTEN DID YOU HAVE A DRINK CONTAINING ALCOHOL IN THE PAST YEAR?TWO TO FOUR TIMES A MONTH (2 POINTS) POINTS2 INTERPRETATIONNEGATIVE RECREATIONAL DRUG USE DRUG USE?NO CAFFEINE CAFFEINE USE?YES COFFEE DAILY CONGREGATIONAL [id number] [employer]IST LANGUAGE LANGUAGES SPOKEN:HAITIAN LEARNING BARRIERS / SPECIAL NEEDS BARRIERS TO LEARNING?NO HEARING IMPAIRED?NO VISION IMPAIRED?YES COGNITIVELY IMPAIRED?NO :CORRECTIVE LENSES READINESS TO LEARN?YES LEARNING PREFERENCES?YES :DEMONSTRATION/VERBAL INSTRUCTION LEARNING CAPABILITIES PRESENT?YES EMOTIONAL BARRIERS?NO SPECIAL DEVICES?NO CHEMISTS NEEDED?NO DOMESTIC VIOLENCE DO YOU FEEL SAFE IN YOUR ENVIRONMENT?YES PATIENT DESCRIBES PAIN : ACHING, IT COMES AND GOES, SHARP, THROBBING, SHOOTING, FROM 0-10, WHAT LEVEL IS YOUR PAIN TODAY? 7, PRECIPITATING FACTORS ACTIVITY, WALKING, ALLEVIATING FACTORS REST, MEDICATIONS. PAIN CLINIC PFS, CLERGY, PUBLIC HEALTH REFERRALS PFS REFERRAL NEEDED?NO CLERGY REFERRAL NEEDED?NO PUBLIC HEALTH REFERRAL NEEDED?NO WAS THE PROVIDER NOTIFIED OF ANY PERTINENT INFO? N/A HAS THE PATIENT BEEN EDUCATED REGARDING HIS/HER PLAN OF CARE?YES HAS THE PATIENT BEEN EDUCATED REGARDING PAIN, THE RISK FOR PAIN, THE IMPORTANCE OF EFFECTIVE PAIN MANAGEMENT, AND THE PAIN ASSESSMENT PROCESS?YES ADVANCE DIRECTIVE ADVANCE DIRECTIVE DISCUSSED WITH PATIENT:YES PT DOES NOT HAVE ANY ADVANCED DIRECTIVES AND HE DECLINES INFORMATION ON HCP AT THIS TIME, STATES THAT HE HAS THE INFORMATION AT HOME. ASSISTANCE OFFERED IN COMPLETING HCP IF NEEDED. HOSPITALIZATION/MAJOR DIAGNOSTIC PROCEDURE KNEE SURG DEHYDRATION AT [facility] 09/2019 REVIEW OF SYSTEMS CONSTITUTIONAL: ANY RECENT FEVER NO . CHILLS NO . WEIGHT CHANGE OF UNKNOWN REASONS NO . GASTROENTEROLOGY: NEW UNEXPLAINABLE CHANGES IN BOWEL CONTROL NO . CONSTIPATION NO . GENITOURINARY: ANY NEW CHANGE IN BLADDER CONTROL? NO . NEUROLOGY: NEW ONSET DIZZINESS OR NEUROLOGICAL CHANGES NOT MENTIONED NO . NEW NUMBNESS OR PAIN PATTERNS NOT MENTIONED AND PERTINENT TO TODAY'S VISIT NO . CARDIOLOGY: NEW CHEST PRESSURE NO . NEW CHEST PAIN NO . RESPIRATORY: UNEXPLAINABLE COUGH NO . NEW SHORTNESS OF BREATH NO . VITAL SIGNS WT 251 LBS, HT 70 IN, BMI 36.01 INDEX, BP 115/62 MM HG, HR 56 /MIN, RR 18 /MIN, TEMP 97.1 F, OXYGEN SAT % 96%, NA INITIALS SC 10:27. EXAMINATION GENERAL EXAMINATION: GENERALNO ACUTE DISTRESS, WELL NOURISHED AND HYDRATED. PSYCHAPPROPRIATE MOOD AND AFFECT . LUNGS:CLEAR TO AUSCULTATION BILATERALLY, NO WHEEZES, RHONCHI, RALES. HEART:NO MURMURS, REGULAR RATE AND RHYTHM. ASSESSMENTS SPONDYLOSIS OF LUMBOSACRAL REGION WITHOUT MYELOPATHY OR RADICULOPATHY - M47.817 (PRIMARY) TREATMENT SPONDYLOSIS OF LUMBOSACRAL REGION WITHOUT MYELOPATHY OR RADICULOPATHY [facility] MRI LUMBAR W/O CONTRAST (CPT 08405)[id number] NOTES: 70-YEAR-OLD MALE IN FOR CHRONIC PAIN FOLLOW-UP. GIVEN PRESENTING SYMPTOMS RECOMMEND DIAGNOSTIC FACET BLOCK #2 LEFT SIDE WITH POST PROCEDURAL FOLLOW-UP. PATIENT WILL HAVE TO HAVE MRI PRIOR TO PROCEDURE HIS LAST LUMBAR MRI WAS PERFORMED IN 2017. PATIENT HAS EXPRESSED UNDERSTANDING OF AND WAS IN AGREEMENT WITH TREATMENT PLAN. GIVEN TIME TO ASK QUESTIONS AND EXPRESS CONCERNS. PROCEDURE CODES FA211 ESTABILISHED PATIENT [facility] FACILITY CHARGE DISPOSITION & COMMUNICATION FOLLOW UP POSTPROCEDURE (REASON: MRI LUMBAR SPINE, DIAGNOSTIC LUMBAR FACET BLOCK #2 LEFT SIDE NEED HOLD OLDER FOR REMICADE 7 DAYS PRIOR TO PROCEDURE ) ELECTRONICALLY SIGNED BY MARIXA SANDRA ON 08/15/2020 AT 09:01 AM EST DISCLAIMER : THIS IS A VISIT SUMMARY EXTRACTED FROM THE [employer] CHART. IT IS NOT A COPY OF THE [employer] PROGRESS NOTE. MYNOR
== END ==
LOC: M PAIN 10:30
PROVIDERS: ATTEND Family Medicine
DX: M47.817 Spondylosis without myelopathy or radiculopathy, lumbosacral region (principal); G89.29 Other chronic pain; E11.9 Type 2 diabetes mellitus without complications; K21.9 Gastro-esophageal reflux disease without esophagitis; Z88.8 Allergy status to other drugs, medicaments and biological substances; Z79.4 Long term (current) use of insulin; Z79.82 Long term (current) use of aspirin; Z79.899 Other long term (current) 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

== ENCOUNTER 2020-08-15 06:26 | Day surgery (SDC) | payer MEDICARE, BC, OTHER ==
[~2020-08-15] VITALS: Ht 177.8 cm; Wt 112.9 kg
[2020-08-15] MEDS ORDERED: LIDOCAINE W/EPINEPHRINE 1% 20ML VIAL As Ordered ONE (07:07)
[2020-08-15] MEDS ORDERED: dexameTHASONE 4 MG/ML 1ML VIAL (J1100 PER 1MG) IV ONE (07:15)
[2020-08-15] MEDS ORDERED: LR 1,000 ML IV ONE (07:15)
[2020-08-15] MEDS ORDERED: LIDOCAINE 2% 100MG/5ML SDV (FOR ANES.) As Ordered ONE (07:26)
[2020-08-15] MEDS ORDERED: propofoL 200 MG/20 ML VIAL As Ordered ONE (07:26)
[2020-08-15] MEDS ORDERED: ONDANSETRON 4MG/2ML VIAL As Ordered ONE (07:26)
[2020-08-15] MEDS ORDERED: ROCURONIUM BROMIDE 50 MG/5 ML VIAL As Ordered ONE (07:26)
[2020-08-15] MEDS ORDERED: SUGAMMADEX SODIUM 500 MG/5 ML VIAL (BRIDION) As Ordered ONE (07:26)
[2020-08-15] MEDS ORDERED: fentaNYL 100 MCG/2 ML INJECTION (J3010) As Ordered ONE (07:27)
[2020-08-15] MEDS ORDERED: MIDAZOLAM INJ 2MG/2ML VIAL (J2250 PER 1MG) As Ordered ONE (07:28)
[2020-08-15] MEDS ORDERED: GLYCOPYRROLATE INJ 0.2 MG/ML 2 ML VIAL As Ordered ONE (08:03)
[2020-08-15] MEDS ORDERED: OXYMETAZOLINE 0.05% NASAL SPRAY (AFRIN) As Ordered ONE (08:22)
[2020-08-15] MEDS ORDERED: METHYLENE BLUE 0.5% (5MG/ML) 10 ML AMP (PROVAYBLUE) As Ordered ONE ×2 (08:25→08:26)
[2020-08-15] MEDS ORDERED: EPINEPHrine 1MG/ML INJ 30ML MD-VIAL As Ordered ONE (08:26)
[2020-08-15] MEDS ORDERED: SILVER NITRATE APPLICATOR As Ordered ONE ×2 (08:33→08:34)
[2020-08-15] MEDS ORDERED: fentaNYL 100 MCG/2 ML INJECTION (J3010) IV PRN (09:45)
[2020-08-15] MEDS ORDERED: LR 1,000 ML IV SCH ×2 (09:45)
[2020-08-15] MEDS ORDERED: oxyCODONE 5MG TAB PO PRN (09:45)
[2020-08-15] MEDS ORDERED: ONDANSETRON 4MG/2ML VIAL IV PRN (09:45)
[2020-08-15] MEDS ORDERED: AUGMENTIN 875 MG TAB PO ONE (10:00)
[2020-08-15 10:30] VITALS: BP 138/64
--- NOTE | 2020-08-15 22:47 | ECGEPIP ---
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 No prior ECG available for comparison at the time of interpretation. Electronically Signed on 08-15-2020 22:46:47 EST by Aubrey Vines
--- NOTE | 2020-08-22 10:16 | RO ---
OPERATIVE NOTE DATE OF OPERATION: 08/15/2020 PREOPERATIVE DIAGNOSIS: Leukoplakia left lateral oral tongue. POSTOPERATIVE DIAGNOSIS: Leukoplakia left lateral oral tongue. PROCEDURES PERFORMED: 1. Biopsy of left lateral oral tongue, superior, inferior aspect using 5 mm punch biopsy. 2. Examination under anesthesia of the nasal cavity, nasopharynx and oropharynx. ANESTHESIA: General. SURGEON: Nba Fields MD CLINICAL PREAMBLE: This 70-year-old man presented to the office with a lesion on the left lateral oral tongue. The lesion appeared to be somewhat leukoplakic as well as progressing in size. Management options including biopsy of the left oral tongue lesion have been discussed, the patient understood and consented to the procedure. OR NARRATION: The patient was identified in preop holding and brought to the operating room in stable condition. He was positioned on the operating table. The patient received general anesthesia followed by initial attempt of nasotracheal intubation with difficulty. Per anesthesia the endotracheal tube may have inadvertently entered into submucosal plane at the level of the uvula. As such, the decision was made to convert to orotracheal intubation which was performed without issues. At this time the patient was prepped and draped in the usual fashion for the procedure. The oral cavity was retracted open. The tongue was retracted laterally to the right side to expose the left tongue. Leukoplakia over the left lateral oral tongue was visualized. Leukoplakia was noted over the left lateral oral tongue. Biopsies were obtained from the superior margin and inferior margin of the leukoplakia. Needle punch biopsy was used to obtain the tissue. Hemostasis was achieved and the wound was then closed using 3-0 Vicryl. At this time the anesthesia team requested my assistance in evaluating possible mucosal laceration that may have occurred at the initial nasotracheal intubation attempt. Both sides of the nasal cavity were inspected using 30-degree rigid nasal endoscope, no gross mucosal laceration or injury of the soft tissue was noted in the nasal cavity and in the nasopharynx. In addition, inspection was carried down to the level of the uvula where the submucosal laceration may have occurred. No gross mucosal breach was noted on the superior aspect of the soft palate, the posterior pharyngeal wall or the lateral pharyngeal wall. At this time procedure was concluded. At end of procedure sponge and instrument counts were correct. Estimated blood loss less than 5 mL. General anesthesia was reversed and the patient was extubated and brought to the recovery room in stable condition.
== END 2020-08-15 11:00 | disposition home or self-care (01) ==
LOC: M SDC 06:26
PROVIDERS: ATTEND Otolaryngology
DX: C02.9 Malignant neoplasm of tongue, unspecified (principal); 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, including tongue; I10 Essential (primary) hypertension; G47.30 Sleep apnea, unspecified; E11.9 Type 2 diabetes mellitus without complications; K21.9 Gastro-esophageal reflux disease without esophagitis; Z79.82 Long term (current) use of aspirin; Z79.84 Long term (current) use of oral hypoglycemic drugs; Z79.4 Long term (current) use of insulin; Z79.899 Other long term (current) 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; Z88.8 Allergy status to other drugs, medicaments and biological substances; F32.9 Major depressive disorder, single episode, unspecified
CPT/HCPCS: 41100; 88305; 93005; J1100; J2250; J2405; J3010; Q9968

== ENCOUNTER → 2020-08-27 | Outpatient (CLI) | payer MEDICARE, BC, OTHER ==
[2020-08-27 15:52] LABS: CREATININE FOR GFR 1.57 MG/DL (0.70-1.30); GLOMERULAR FILTRATION RATE 46.5 (>42)
== END ==
LOC: M LAB 14:52
PROVIDERS: ATTEND Physician Assistant Medical
DX: C02.9 Malignant neoplasm of tongue, unspecified (principal)

== ENCOUNTER → 2020-09-02 | Outpatient (CLI) | payer MEDICARE, BC, OTHER ==
[~2020-09-02] MED LIST changes: +ISOVUE-370 76% 100ML VIAL As Ordered ONE
--- NOTE | 2020-09-02 16:35 | REPVR ---
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 Radiation optimization: All CT scans at this facility use at least one of these dose optimization techniques: automated exposure control; mA and/or kV adjustment per patient size (includes targeted exams where dose is matched to clinical indication); or iterative reconstruction. Contrast material: ISOVUE 370; Contrast volume: 75 ml; Contrast route: INTRAVENOUS (IV); COMPARISON: MRI-Spine,Cervical without con 01/25/2019 8:50 AM FINDINGS: Paranasal sinuses: There is an air-fluid level noted in the right sphenoid sinus. Nasopharynx: Unremarkable. Oropharynx: There is an area of increased soft tissue density and hypoenhancement in the left posterior tongue as seen on series 201 images 35 and 36. Superior extent cannot be assessed as this area is completely obscured by metal artifact on the it immediately superior images. Approximate dimensions are 16 x 18 mm. Hypopharynx: Unremarkable. Larynx: Unremarkable. Normal epiglottis. Retropharyngeal space: Unremarkable. Submandibular/Parotid glands: Normal. Glands are normal in size. Thyroid: There is a 3 cm right lobe thyroid nodule. Lymph nodes: There are a few small cervical lymph nodes. No abnormally enlarged lymph nodes. No abnormally enhancing lymph nodes. Trachea: Visualized trachea is unremarkable. Lungs: Unremarkable as visualized. Bones/joints: There is multilevel cervical spondylosis and disc space narrowing. No fracture or focal osseous lesion. Soft tissues: Unremarkable. No significant soft tissue swelling. IMPRESSION: 1. Increased soft tissue density with heterogeneous enhancement . It is partially obscured by metal artifact. Correlate with known tongue carcinoma. 2. No evidence of adenopathy. 3. 3 cm right lobe thyroid nodule. Recommend thyroid ultrasound. COMMENTS: Consistent with the [employer]'s Incidental Findings Committee white paper (J Am Arjun Radiol 2015): In patients aged 35 years and older with an incidental thyroid nodule equal to or greater than 1.[address], MRI or extrathyroidal US, further evaluation with dedicated thyroid US is recommended for patients with normal life expectancy and without comorbidities. For smaller nodules without suspicious features, no further evaluation or follow up is recommended. Electronically signed by: Arnaud Ford On 09/02/2020 16:35:18 PM
== END ==
LOC: M RAD 15:40
PROVIDERS: ATTEND Physician Assistant Medical
DX: C02.9 Malignant neoplasm of tongue, unspecified (principal); E04.1 Nontoxic single thyroid nodule
CPT/HCPCS: 70491; Q9967

== ENCOUNTER → 2020-09-11 | Outpatient (CLI) | payer MEDICARE, BC, OTHER ==
[~2020-09-11] MED LIST changes: -ISOVUE-370 76% 100ML VIAL As Ordered ONE
--- NOTE | 2020-09-11 12:37 | REP ---
INDICATION: SPONDYLOSIS. Spondylolysis of the lumbosacral region without myelopathy or radiculopathy. COMPARISON: None. TECHNIQUE: Sagittal and axial T1 and T2-weighted scans are acquired in the usual fashion with and without fat saturation. Sequences include spin echo, turbo spin-echo, and STIR imaging sequences. FINDINGS: Lumbar vertebral body heights are preserved. Alignment is normal. There is no evidence of spondylolysis or spondylolisthesis. Normal caliber aorta is seen. No extra-spinal abnormality is observed. There is diffuse degenerative spondylosis change. Axial and sagittal images taken at the L1-L2 level demonstrate degenerative disc narrowing, diffuse posterior disc bulging, and osteophytic ridging. This indents the ventral margin of the thecal sac. In combination with some ligamentum flavum and facet hypertrophy and developmentally short pedicles, there is mild central canal stenosis at L1-2. No focal disc protrusion is seen. The midline AP dimension of the thecal sac at L1-2 is 9.5 mm. At L2-3, there is a broad-based central disc protrusion indenting the ventral margin of the thecal sac. Ligamentum flavum and facet hypertrophy are noted and there is moderate central canal stenosis at L2-3. The midline AP dimension of the thecal sac at L2-3 is 7 mm. There is a right lateral focal disc protrusion at L2-3. No nerve root compression is appreciated. At L3-L4, there is degenerative disc disease with diffuse disc bulging. There is moderate central canal stenosis at L3-4. The midline AP dimension of the thecal sac at L3-4 is is 7.4 mm. There is left-sided neural foraminal narrowing due to facet hypertrophy and some disc bulging. There are bilateral lateral disc bulges at L3-4. On the right this appears to contact the extra dural adjacent nerve root. At L4-5, there is degenerative disc narrowing and posterior osteophytic ridging subtly indenting the ventral margin of the thecal sac. The canal has a triangular configuration and there is mild central canal stenosis. Moderate facet hypertrophy and ligamentum flavum hypertrophy are present. There is mild right-sided neural foraminal narrowing due to facet hypertrophy and disc bulging. At L5-S1, there is a right posterior and right foraminal focal disc protrusion. Right-sided neural foraminal narrowing is present. Canal size is borderline. There is mild facet hypertrophy bilaterally at L5-S1. IMPRESSION: Fairly advanced degenerative spondylosis. Multilevel central canal stenosis. Multilevel neural foraminal narrowing as above. Right foraminal disc protrusion at L5-S1. <Electronically signed by Ted Hathaway > 09/11/20 [id number]
== END ==
LOC: M RAD 10:47
PROVIDERS: ATTEND Family Medicine
DX: M47.817 Spondylosis without myelopathy or radiculopathy, lumbosacral region (principal); M51.36 Other intervertebral disc degeneration, lumbar region; M51.26 Other intervertebral disc displacement, lumbar region

== ENCOUNTER → 2020-09-13 | Outpatient (CLI) | payer MEDICARE, BC, OTHER ==
[~2020-09-13] MED LIST changes: +CETACAINE SPRAY 5GM As Ordered ONE
--- NOTE | 2020-09-13 14:52 | RADONC.CN ---
Radiation Oncology Hx/Consult Radiation Oncology Consult Date of Service: Sep 13, 2020 Pt Identifier Medardo Simeon is a 70 year old male never smoker with a history of tongue pre-malignancy who has a recently diagnosed left lateral tongue SCC [id number]. He is seen at the request of Dr. Fields as the patient wishes to consider non- operative management. Diagnosis/Treatment History Oncologic History Patient reports he is a never smoker, has remote asbestos exposure, has ankylosing spondylitis, on remicade for this. No family history of cancer. Has a uninodular goiter. Reports that several years ago he underwent biopsy for a premalignancy of the tongue. In Fall 2019, a lesion on the left lateral oral tongue was noted to be growing. He reports that the lesion is tender, and that he has pain in the left ear and discomfort in the left buccal mucosa. He presented to ENT and biopsy was performed by Dr. Fields on 08/15/20, pathology showed a SCC. Subsequent CT neck on 09/02/20 showed a ~2.5 cm lesion without obvious extension into the extrinsic tongue muscle, no enlarged LN. MRI was done on 09/13/20 and was unrevealing with respect to the primary lesion and also showed no involved nodes. Interval History Here with his . Has some occasional pain corresponding to the tongue lesion, such as when he eats spicy foods. He has no dysphagia. He has no weight loss. He does have chronic left ear pain, history of wax impaction, feels this has been worse since the tongue lesion appeared. He wears nasal CPAP QHS. He notes no voice changes, no nausea or vomiting, no fevers or chills. No visual changes. He sees a dentist annually. Past Medical History: Goiter Ankylosing spondylitis DMII GERD HPL HTN BINDU Past Surgical History: Left knee surgery Typanomstomy tube placement Family History: No family history of cancer Social History: Never smoker 1 standard drink per week Allergies / Meds Allergies: Coded Allergies: atorvastatin (Verified Adverse Reaction, Unknown, sore muscles, 08/15/20) Home Meds Reported Medications Metformin HCl (Metformin HCl ER) 750 Mg Tab.er.24h, 750 MG PO BID, TAB 08/08/20 Empagliflozin (Jardiance) 10 Mg Tablet, PO DAILY, TAB 08/08/20 Simvastatin (Zocor) 80 Mg Tablet, 80 MG PO DAILY, TAB 08/08/20 Lisinopril (Lisinopril) 40 Mg Tablet, 40 MG PO DAILY, TAB 08/08/20 Insulin Glargine (Lantus) 100 Unit/1 Ml Vial, 60 UNITS SC QHS, INJ 08/08/20 Hydrochlorothiazide (Hydrochlorothiazide) 25 Mg Tablet, 25 MG PO DAILY, TAB 08/08/20 Fluticasone Propionate (Fluticasone Propionate) 16 Gm [place].susp, 1 SPRAY NA DAILY, #1 BOTTLE 08/08/20 Aspirin (Ecotrin) 81 Mg Tablet.dr, 81 MG PO DAILY, TAB 08/08/20 Insulin Human Lispro (Novolog) 100 U/Ml Inj, 20 UNITS SC AC, INJ 02/26/14 Pantoprazole Sodium (Pantoprazole Sodium) 40 Mg Tab, 40 MG PO DAILY, TAB 02/26/14 Citalopram Hydrobromide (Citalopram HBr) 20 Mg Tab, 20 MG PO DAILY, TAB 02/26/14 Atenolol (Atenolol) 100 Mg Tab, 100 MG PO DAILY, TAB 02/26/14 Review of Systems Constitutional: Denies: Chills, Fever, Night Sweats Eyes: Denies: Pain, Vision change HEENT: Reports: Ear Pain; Denies: Head Aches, Dysphagia, Post Nasal Drip, Sore Throat, Epistaxis Skin: Denies: Rash, Lesions, Bruising Pulmonary: Denies: Dyspnea, Cough Cardiovascular: Denies: Chest Pain, Palpitations, Edema Gastrointestinal: Denies: Nausea, Vomiting, Abdominal Pain, Diarrhea Genitourinary: Denies: Dysuria, Frequency, Incontinence Hematologic: Denies: Bruising, Petecchia, Enlarged Lymph Nodes Musculoskeletal: Reports: Joint pain; Denies: Neck pain, Back pain Neurological: Denies: Weakness, Numbness, Incoordination Psych: Reports: Mood Normal; Denies: Memory Issues, Thoughts of Self Harm Vital Signs Ht 70" Wt 251 BMI 36 T 98 P 57 RR 16 BP 140/76 O2 97 Pain 4 Fatigue 2 General Exam: Positive: Alert, Cooperative, No Acute Distress Eye Exam: Positive: PERRLA, Conjunctiva & lids normal, EOMI; Negative: Ptosis ENT EXAM: Positive: Mucous membr. moist/pink, Pharynx Normal, Tongue Midline, Nares Patent, Other ENT (Careful examination of the oral cavity was made. Lower dentition with multiple missing teeth and broken teeth. THe buccal and gingival mucosa are pink and normal appearing without lesions all around. On the left posterolateral oral tongue there is a ~2cm shallow white ulcerated lesion without bleeding or drainage. The lesion is palpable and does not involve the extrisic or deep musculature of the tongue or FOM. There are no FOM lesions on bimanual exam. There are no palpable BOT or tonsil lesions. ); Negative: Tympanic Membranes Normal (Right TM normal, Left TM partially obscured by wax impaction. What is visible of TM appears normal) Neck Exam: Negative: Thyromegaly, Lymphadenopathy Chest Exam: Positive: Normal air movement; Negative: Rales, Rhonchi, Wheezing Heart Exam: Positive: Rate Normal, Regular Rhythm Abdomen Exam: Positive: Soft; Negative: Tenderness, Mass Skin Exam: Positive: Nl turgor and temperature; Negative: Rash Neuro Exam: Positive: Normal Gait, Normal Speech, Cranial Nerves 3-12 NL Psych Exam: Positive: Mental status NL, Mood NL, Memory Intact Diagnostic and Laboratory Diagnostic Review Radiologic images, relevant labs and pathology reports were personally reviewed and discussed with Mr. Simeon. Assessment and Plan Impression Mr. Simeon is a 70 year old male with a history of never smoker with a history of tongue pre-malignancy who has a recently diagnosed left lateral tongue SCC [id number]. He is seen at the request of Dr. Fields as the patient wishes to consider non-operative management. Stage Stage II [id number] left oral tongue SCC Performance Status ECOG 0 Plan We had an extensive discussion with Mr. Simeon regarding the diagnosis at hand and available therapeutic options. He has an early stage lesion ~2.[address], on exam it is a superficial ~2cm ulcer. There is no impairment in tongue mobility, and no sense on my exam that it is extending very deeply. He has no evidence of nodes on his CT and MRI. He has an unclear history of pre-malignancy, and in a never smoker, his cancer may be related to remicade use for his ankylosing spondylitis (or be completely sporadic in nature). He has noted recent worsening of his left ear pain, this may be referred from his tumor, or chronic OM related. I explained that operative management of an early stage tongue cancer is much preferred to RT as the side effect profile of surgery is much better for oral tongue lesions than for RT. Indeed I think he has a good chance to be cured and have a good functional outcome with surgery, I discussed this in depth with him. He agreed to pursue surgery with Dr. Fields. I did briefly review the indications for post-operative RT, but am confident based on workup to date and exam that he will not need it. After discussing the risks, benefits and alternatives to radiation therapy, Mr. Simeon was amenable to pursuing surgery for his early stage tongue cancer. All questions were answered to the patient's satisfaction. We instructed the patient that if there were any questions,concerns or changes in clinical status in the interim to contact us. Recommendations Surgical resection of patient's tongue cancer Can be re-referred if he needs post-op RT Follow up as needed for now JENNIFER LOTT MD Sep 13, 2020 14:52
== END ==
LOC: M ONCR 12:40
PROVIDERS: ATTEND General Practice
DX: C02.9 Malignant neoplasm of tongue, unspecified (principal)

== ENCOUNTER → 2020-09-13 | Outpatient (CLI) | payer MEDICARE, BC, OTHER ==
[~2020-09-13] MED LIST changes: +ACET1TAB55 PO; -CETACAINE SPRAY 5GM As Ordered ONE; +GABA-282 PO; +PERCOCET PO; +PERI12LIQ SSP; +PROHANCE 279.3MG/ML 15ML VIAL As Ordered ONE
--- NOTE | 2020-09-13 09:20 | REP ---
INDICATION: MAL NEOPLASM OF TOUNGE. Preoperative planning. Left oral tongue carcinoma. COMPARISON: Comparison CT study of the neck September 02, 2020. TECHNIQUE: Sagittal, axial, and coronal imaging planes utilized. T1 and T2 weighted sequences include spin echo, fast spin echo, inversion recovery sequences. Gadolinium enhancement dose is 11 mL of intravenous ProHance. Postcontrast T1 weighted axial and coronal scans are included. FINDINGS: The larger 3 cm area of soft tissue fullness seen along the left lateral margin of the tongue on the CT study from September 02, 2020 is not visible by MRI imaging. Indeed no mass lesion can be discerned in the tongue on today's MR imaging. No bony destructive lesion is observed. Visualized paranasal sinuses are clear. No intraorbital abnormality is apparent. Nasopharynx, oropharyngeal and peritonsillar soft tissues are unremarkable. Epiglottis appears normal. No visible adenopathy is seen. Parotid glands are normal and symmetric. Submandibular glands are symmetric. Soft palate is unremarkable. Several sequences including the postcontrast study show magnetic field susceptibility artifact emanating from dental amalgam. Postcontrast study shows no abnormal contrast enhancement in the tongue or floor of mouth region. IMPRESSION: Unremarkable orbital facial MRI study. The 3 cm mass effect observed on recent CT study is not visible. No tongue lesion can be seen on MRI. No mass or adenopathy noted. <Electronically signed by Ted Hathaway > 09/13/20 0916
== END ==
LOC: M RAD 07:13
PROVIDERS: ATTEND Otolaryngology
DX: C02.9 Malignant neoplasm of tongue, unspecified (principal)
CPT/HCPCS: 70543; A9576; G0463

== ENCOUNTER → 2020-09-21 | Outpatient (CLI) | payer MEDICARE, BC, OTHER ==
[~2020-09-21] MED LIST changes: -ACET1TAB55 PO; -GABA-282 PO; -PERCOCET PO; -PERI12LIQ SSP; -PROHANCE 279.3MG/ML 15ML VIAL As Ordered ONE
== END ==
LOC: M LABSMTC 10:46
PROVIDERS: ATTEND Anesthesiology
DX: Z01.812 Encounter for preprocedural laboratory examination (principal); Z20.822 Contact with and (suspected) exposure to COVID-19

== ENCOUNTER 2020-09-26 06:17 | Observation (INO) | payer MEDICARE, BC, OTHER ==
[~2020-09-26] VITALS: Ht 177.8 cm; Wt 111.3 kg
[2020-09-26] VITALS (11 sets, daily range): BP systolic 135–161; BP diastolic 72–90; O2SAT 88–96
[~2020-09-26 06:17] MED LIST changes: +GABA-282 PO; +HYDR-3490 PO; -HYDR25TAB PO; -LISI40TA PO; +LISI40TA4 PO
[2020-09-26] MEDS ORDERED: LR 1,000 ML IV ONE (06:30)
[2020-09-26] MEDS ORDERED: dexameTHASONE 4 MG/ML 1ML VIAL (J1100 PER 1MG) IV ONE (06:30)
--- OUTSIDE RECORDS SUMMARY | 2020-09-26 06:35 | CCD | Continuity of Care Document ---
Author Author Medardo FIELDS MD Organization Unknown Address [address] [address] Phone [phone] Care Team Providers Care Feller Operator Name Role Phone Alejandro Del Rio D.O. AUTM [phone] Dalton Arita AUTM [phone] AUTM Unavailable Juan aMnuel Segal M.D. AUTM [phone] [facility] AUTM [phone] Problems Active Problems Provider Date Type 2 diabetes mellitus Ramsey Joseph M.D. Onset: 012 Pure hypercholesterolemia Ramsey Joseph M.D. Onset: 2011 Essential hypertension Ramsey Joseph M.D. Onset: 2 Sleep dysfunction with arousal disturbance Bethel Bender Onset: 05/26/2012 Non-toxic uninodular goiter Ramsey Joseph M.D. Onset: 06/07 Central perforation of tympanic membrane Nba Fields MD Onset: 01/04/2015 Middle ear conductive hearing loss Nba Fields MD Onset : 01/04/2015 Chronic otitis media Nba Fields MD Onset: 01/04/2015 Dysfunction of eustachian tube Nba Fields MD Onset: Chronic serous otitis media Nba Fields MD Onset: 01/04 Other specified disorders of Eustachian tube, left ear Inna Nicole II, PA-C Onset: 10/30/2015 Otalgia Nba Fields MD Onset: 02/19/2016 Acute suppurative otitis media without spontaneous rup ture of ear drum Raji Nicole II, PA-C Onset: 06/01/2017 Allergic rhinitis Audie Carpenter MD Onset: 09/22/2011 Body mass index 30+ - obesity Audie Carpenter MD Onset: Obesity Audie Carpenter MD Onset: 09/22/2011 Ex-smoker Audie Carpenter MD Onset: 09/22/2011 Obstructive sleep apnea syndrome Audie Carpenter MD Onset: 09/15/2011 Mabel Escobarcarlos BERNAL PA-C Onset: 05/25/2018 Social History Type Date Description Comments Sex Unknown Tobacco Use Start: Unknown Never Smoked Cigarettes ETOH Use 1 A Month Tobacco Use Start: Unknown Non Smoker Smoking Status Reviewed: 08/20/20 Non Smoker Allergies, Adverse Reactions, Alerts Active Allergies Reaction Severity Comments Date Lipitor 01/04/2015 Inactive Allergies NKDA 07/18/2009 Medications Active Medications SIG Qnty Indications Ordering Provide r Date Ofloxacin (Otic) 0.3% Solution 5 drops to left ear twice a day x 7 days 1units H60.8x2 Nba Fields MD CPAP [facility] Audie Carpenter MD 08/06 Tizanidine HCL 4mg Tablets Jack, Alberta, R.P.A.-C Metformin HCL 500mg Tablets 750 mg bid Unknown Gabapentin 300mg Capsules tid Unknown Victoza 18mg/3ML Solution Pen-Inje ct 1 injection every week Unknown Aspir-[address] 1 po qd Unknown Remicade 100mg Solution Rec 10 mg/kg iv every 8 weeks Unknown Fluticasone Propionate 50mcg/Act Suspension 1 sprays to each nostril prn Unknown Duloxetine HCL 30mg Caps DR Part 1 by mouth every day Unknown Crestor 20mg Tablets 1 by mouth every day Unknown Novolog 100Unit/ML Solution per sliding scale Unknown Citalopram Hydrobromide 20mg Table ts every day Unknown Hydrochlorothiazide 25mg Tablets 1 po qd 90tabs Unknown Lantus 100Unit/ML Solution per sliding scale Unknown Protonix 40mg Tablets DR 1 by mouth twice a day Unknown Lisinopril 40mg Tablets qd Unknown Atenolol 100mg Tablets 1 po q d Unknown History Medications Amoxicillin/Clavulanate Potassium 875-125mg Tablets 1 tab by mouth twice a day for 10 days 20tabs To tee Fields MD 08/15/2020 - 09/16/2020 Chlorhexidine Gluconate 0.12% Solu tion 15 milliliters by mouth swish and spit three times a day for 10 days 473ml Nba Fields MD 08/15/2020 - 09/16/2020 Immunizations CPT Code Status Date Vaccine Lot # [id number] Given 06/19/2016 Influenza Virus Split 3 Yrs And Above For Intramuscular Use 50112 Given 07/03/2015 Influenza Virus Split 3 Yrs And Above For Intramuscular Use Q2036 Given 06/15/2012 Influenza Vaccine 3 Years Of Age Or Older (Flulaval) Q2036 Given 07/15/2011 Influenza Vaccine 3 Years Of Age Or Older (Flulaval) 07102 Given 06/14/2008 Influenza Vaccine Vital Signs Date Vital Result Comment 09/20/2020 10:46am Height 70 inches 5'10" Weight 249.00 lb BMI (Body Mass Index) 35.7 kg/m2 Cosmos Body Weight 166 lb Weight 112.946 kg BSA (Body Surface Area) 2.29 m2 09/17/2020 8:29am Weight 249.00 lb Weight 112.946 kg Results Test Acquired Date Facility Test Result H/L Range Note BUN & Creatinine ([facility]) 08/27/2020 [facility] Main Lab [address] [place], [place] [id number] [phone] Blood Urea Nitrogen 23 mg/dL High 7-18 Creatinine With GFR 08/27/2020 [facility] nter Main Lab [address] [place], [place] [id number] [phone] Creatinine For GFR 1.57 mg/dL High 0.70-1.30 Glomerular Filtration Rate 46.5 Normal >42 1 Laboratory test finding 08/15/2020 [facility] Main Lab [address] [place], [place] [id number] [phone] Pathology Request For Service (SEE NOTE) 2 Laboratory test finding 08/15/2020 [facility] Main Lab [address] [place] [address] [phone] Bedside Glucose 152 mg/dL High 83-110 1 Units are mL/min/1.73 m2 Chronic Kidney Disease Staging per NKF: Stage I & II GFR >=60 Normal to Mildly Decreased Stage III GFR 30-59 Moderately Decreased Stage IV GFR 15-29 Severely Decreased Stage V GFR <15 Very Little GFR Left ESRD GFR <15 on [employer] 2 FINAL DIAGNOSIS A-Left lateral oral tongue, superior, 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 B-Left lateral oral tongue, inferior, biopsy: Invasive squamous carcinoma, well to moderately differentiated. 08/16/2020 - 1310 CLINICAL DIAGNOSIS Left oral tongue leukoplakia 08/15/2020 - 1355 GROSS DIAGNOSIS A - Received in formalin labeled "biopsy left lateral oral tongue superior" and consists of a fragment of tissue 0.6 x 0.6 x 0.2 cm. All in one. B - Received in formalin labeled "biopsy left lateral oral tongue inferior" and consists of a fragments of tissue 0.5 x 0.5 x 0.3 cm. All in one. -OA 08/15/2020 - 1355 Signed ARTURO PACHECO MD 08/16/2020 1310 Procedures Date Code Description Status 09/17/2020 55606 Remove Impacted Cerumen Complete d 08/15/2020 13556 Biopsy Tongue Anterior Two-Third s Completed 07/17/2020 76843 Remove Impacted Cerumen Complete d Medical Devices Description No Information Available Encounters Type Date Location Provider Dx Diagnosis Office Visit 09/17/2020 8:30a [facility] Raji almaraz II, PA-C C02.9 Malignant neoplasm of tongue, unspecifie d H61.22 Impacted cerumen, left ear H60.8x2 Other otitis externa, left e ar H72.02 Central perforation of tympa cuong membrane, left ear Office Visit 08/22/2020 9:30a [facility] E[facility]GI [facility] Raji almaraz II, PA-C C02.9 Malignant neoplasm of tongue, unspecifie d Office Visit 08/20/2020 9:45a [facility] Pulmonary/Thoracic Lawrenc essie Carpenter MD G47.33 Obstructive sleep apnea (adult) (pediatr ic) Office Visit 07/17/2020 10:15a [facility] ENT[facility]GI Practice Nba Fields MD 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, including tongue H72.02 Central perforation of tympa cuong membrane, left ear H61.22 Impacted cerumen, left ear Assessments Date Code Description Provider 09/17/2020 C02.9 Malignant neoplasm of tongue, un specified Raji Nicole II, PA-C 09/17/2020 H61.22 Impacted cerumen, left ear Inna s [facility] II, PA-C 09/17/2020 H60.8x2 Other otitis externa, left ear T homas [facility] II, PA-C 09/17/2020 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, left ear Raji Murrayc GABE, PA-C 09/04/2020 C02.9 Malignant neoplasm of tongue, un specified Nba Fields MD 08/22/2020 C02.9 Malignant neoplasm of tongue, un specified Raji [facility] II, PA-C 08/20/2020 G47.33 Obstructive sleep apnea (adult) (pediatric) Audie Carpenter MD 08/15/2020 C02.9 Malignant neoplasm of tongue, un specified Nba Fields MD 07/17/2020 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
--- OUTSIDE RECORDS SUMMARY | 2020-09-26 06:35 | CCD ---
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 Active 70658273 Problem Spondylosis of lumbosacral region without myelop athy or radiculopathy M47.817 Active 66849029 Problem Spondylosis of lumbar region without myelopathy or radiculopathy M47.816 Active 68775165 Problem 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 y or radiculopathy M47.814 Active 513351957 Problem Lumbar facet arthropathy M46.96 Active 0731813 08 Problem Spondylosis without myelopathy or radiculopathy, lumbar region M47.816 Active 739355819 Problem Ankylosing spondylitis, unspecified site of spine M45.9 Active 5495752 Problem Myalgia M79.1 Active 98351169 Problem Sacroiliitis, not elsewhere classified M46.1 A ctive 66592897 Problem Lumbosacral spondylosis with radiculopathy M47.27 Active 695162380 Problem Spondylosis 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.815 Active 43700974 ALLERGIES Allergen (clinical drug ingredient) Drug/Non Drug Allergy do cumented on EMR Reaction Allergy Type Onset Date Status atorvastatin Lipitor([facility] Code:[address]-90) muscle pain Drug Allergy Active ENCOUNTERS from 1950 to 2020-09-19 Encounter Location Date Provider Diagnosis [facility] [address] [place] [id number] Sep, Huy Bao IMMUNIZATIONS No Information SOCIAL HISTORY Tobacco Use: Social History Observation Description Date Details (start date - stop date) Never Smoker Sex Assigned At : Social History Observation Description Sex Assigned At Unknown Language: Question Answer Notes Languages spoken: Maur[place] [employer]: Question Answer Notes [employer] Alcohol Screening: Question Answer Notes Did you have a drink containing alcohol in the past year? Ye s Points 2 Interpretation Negative How often did you have six or more drinks on one occas ion in the past year? Never (0 points) How many drinks did you have on a typica l day when you were drinking in the past year? 1 or 2 (0 points) How often did you have a drink containing alcohol in t he past year? Two to four times a month (2 points) Tobacco Use: Question Answer Notes Are you a: never smoker REASON FOR REFERRAL No Information VITAL SIGNS No information MEDICATIONS Medication SIG (Take, Route, Frequency, Duration) Notes Start Da te End Date Status Lisinopril 40 MG 1 tablet Orally Once a day Active Vit D-Vit E-Safflower Oil 1 cap Daily Active Pantoprazole Sodium 40 MG 1 tablet Orally Once a day Active Empagliflozin 25 MG 1 tablet Orally Once a day for 30 day(s) Active Multi For Him 50+ 1 cap Daily Active Ibuprofen 600 MG 1 tablet with food or milk as needed Ora lly Three times a day Active MiraLax - 1 packet mixed with 8 ounces of fluid Orally Once a day Active Remicade 100 MG 900 mg Intravenous every 4 weeks Active Atenolol 100 MG 1 tablet Orally Once a day Active Aspirin 81 81 MG 1 tablet Orally Once a day Active Gabapentin 600 MG 1 tablet Orally Q8H TID for 30 day(s) Active Hydrochlorothiazide 25 MG 1 tablet in the morning Orally Once a day Active Citalopram Hydrobromide 20 MG 1 tablet Orally Once a day Active Ciclopirox 0.77 % 1 application Externally Twi ce a day to feet and back rash for 30 days Active Flonase 50 MCG/DOSE 1 spray in each nostril Nasa lly Once a daily-takes as needed Active NovoLog Flexpen 100 UNIT/ML Sliding scale Subcutaneous Active Crestor 20 MG 1 tablet Orally Once a day Active Metformin HCl 500 MG 1 tablet with meals Orally Twice a day Active Acetaminophen 325 MG 1 capsule as needed Orally every 4 hrs Active Lantus SoloStar 100 UNIT/ML 60 units Subcutaneous Daily Active PROCEDURES No Information RESULTS No Results REASON FOR VISIT hold med request MEDICAL (GENERAL) HISTORY Type Description Date Medical History hyperlipidemia Medical History hypertension Medical History diabetes mellitus type 2 Medical History acid reflux Medical History arthritis Medical History Ankylosis Spondylitis/ Arthritis [facility] [place] Medical History Back Pain Surgical History left knee surgery Surgical History right foot bunionectomy Hospitalization History Knee Surg Hospitalization History Dehydration at [facility] 09/2019 [place] No Information Health Concerns No Information MEDICAL EQUIPMENT No Information MENTAL STATUS No Information FUNCTIONAL STATUS No Information ASSESSMENTS No Information PLAN OF TREATMENT Next Appt Details Provider Name:Barrera Benson, 2020-10 11:15:00 AM, [address] [facility], [address] [facility], [place], [place], [id number], Insurance Providers Payer Name Payer Address Payer Phone Insured Name Patient Relati onship to Insured Coverage Start Date Coverage End Date MEDICARE Part A and B [address] [facility] [id number] [phone] [facility] [address] [facility] [id number] TYE BULLARD
--- OUTSIDE RECORDS SUMMARY | 2020-09-26 06:35 | CCD | Continuity of Care Document ---
Author Author [facility] Organization 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 Name Role Phone Wall Dimitri SOLORZANO Unavailable Unavailable Allergies, Adverse Reactions, Alerts Substance Reaction Status Criticality ATORVASTATIN CALCIUM Muscular Pain Active No Informat ion Medications Medication Instructions Dosage Effective Dates (start - stop) Sta tus Comments tizanidine 2 mg tablet take 2 tablet by oral route every bedtim e - Active Jardiance 25 mg tablet take 0.5 tablet by oral route every day in the morning 12.5 MG - Active Remicade 100 mg intravenous solution infuse 900 millig preston by intravenous route every 4 weeks 900 milligram - Active metformin ER 750 mg tablet,extended release 24 hr take 1 tablet by oral route 2 times every day with the evening meal 750 MG - Active gabapentin 300 mg capsule take 2 capsule by oral route in AM, 2 capsules at lunch and 1 capsule at bedtime every day - Active aspirin 81 mg tablet,delayed release take 1 tablet by oral r oute every day 81 MG - Active atenolol 100 mg tablet take 1 tablet by oral route every day 100 MG - Active citalopram 20 mg tablet take 1 tablet by oral route every day 20 MG - Active Flonase 50 mcg/actuation nasal spray,suspension spray 1 spray by intranasal route every day in each nostril - Active hydrochlorothiazide 25 mg tablet take 1 tablet by oral route ev jaci day 25 MG - Active Novolog Flexpen 100 unit/mL subcutaneous inject by sub cutaneous route as per insulin sliding scale protocol - Active Lantus Solostar 100 unit/mL (3 mL) subcutaneous insuli n pen inject by subcutaneous route as per insulin protocol 0.00 - Activ e lisinopril 40 mg tablet take 1 tablet by oral route every day 40 MG - Active pantoprazole 40 mg tablet,delayed release take 1 table t by oral route every day 40 MG - Active CRESTOR (unknown strength) take 1 Tablet by oral route every da y Not Available - Active tizanidine 2 mg tablet take 2 tablet by oral route every bedtim e - No Longer Active Problems Condition Type Effective Dates (start - stop) Clinical S tatus Comments Ankylosing spondylitis of multiple sites in spine Diag nosis interpretation (observable entity) 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 Diagnosis 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 pretation (observable entity) Low back pain Diagnosis interpretation (observable entity) Ankylosing spondylitis of multiple sites in spine Diag nosis interpretation (observable entity) Ankylosing spondylitis of multiple sites in spine Diag nosis interpretation (observable entity) Ankylosing spondylitis of multiple sites in spine Diag nosis interpretation (observable entity) Ankylosing spondylitis of multiple sites in spine Diag nosis interpretation (observable entity) Other detention (current) 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 Diagnosis inter pretation (observable entity) Ankylosing spondylitis of multiple sites in spine Diag nosis interpretation (observable entity) Ankylosing spondylitis of multiple sites in spine Diag nosis interpretation (observable entity) Ankylosing spondylitis of multiple sites in spine Diag nosis interpretation (observable entity) - Ankylosing spondylitis of multiple sites in spine Diag nosis interpretation (observable entity) Other detention (current) 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 Diagnosis inter pretation (observable entity) Ankylosing spondylitis of multiple sites in spine Diag nosis interpretation (observable entity) Ankylosing spondylitis of multiple sites in spine Diag nosis interpretation (observable entity) Ankylosing spondylitis of multiple sites in spine Diag nosis interpretation (observable entity) Ankylosing spondylitis of multiple sites in spine Diag nosis interpretation (observable entity) 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 Diagnosis 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 pretation (observable entity) Ankylosing spondylitis of multiple sites in spine Diag nosis interpretation (observable entity) Ankylosing spondylitis of multiple sites in spine Diag nosis interpretation (observable entity) Ankylosing spondylitis of multiple sites in spine Diag nosis interpretation (observable entity) Ankylosing spondylitis of multiple sites in spine Diag nosis interpretation (observable entity) Ankylosing spondylitis of multiple sites in spine Diag nosis interpretation (observable entity) Other detention (current) 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 Diagnosis inter pretation (observable entity) Low back pain Diagnosis interpretation (observable entity) Ankylosing spondylitis of multiple sites in spine Diag nosis interpretation (observable entity) Ankylosing spondylitis of multiple sites in spine Diag nosis interpretation (observable entity) Ankylosing spondylitis of multiple sites in spine Diag nosis interpretation (observable entity) Ankylosing spondylitis of multiple sites in spine Diag nosis interpretation (observable entity) 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 Diagnosis 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 pretation (observable entity) Ankylosing spondylitis of multiple sites in spine Diag nosis interpretation (observable entity) Ankylosing spondylitis of multiple sites in spine Diag nosis interpretation (observable entity) Ankylosing spondylitis of multiple sites in spine Diag nosis interpretation (observable entity) Ankylosing spondylitis of multiple sites in spine Diag nosis interpretation (observable entity) Other detention (current) 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 Diagnosis inter pretation (observable entity) Ankylosing spondylitis of multiple sites in spine Diag nosis interpretation (observable entity) Ankylosing spondylitis of multiple sites in spine Diag nosis interpretation (observable entity) Ankylosing spondylitis of multiple sites in spine Diag nosis interpretation (observable entity) Ankylosing spondylitis of multiple sites in spine Diag nosis interpretation (observable entity) 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 Diagnosis inter pretation (observable entity) Ankylosing spondylitis of multiple sites in spine Diag nosis interpretation (observable entity) Ankylosing spondylitis of multiple sites in spine Diag nosis interpretation (observable entity) Ankylosing spondylitis of multiple sites in spine Diag nosis interpretation (observable entity) Ankylosing spondylitis of multiple sites in spine Diag nosis interpretation (observable entity) 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 Diagnosis inter pretation (observable entity) Ankylosing spondylitis of multiple sites in spine Diag nosis interpretation (observable entity) Ankylosing spondylitis of multiple sites in spine Diag nosis interpretation (observable entity) Ankylosing spondylitis of multiple sites in spine Diag nosis interpretation (observable entity) Ankylosing spondylitis of multiple sites in spine Diag nosis interpretation (observable entity) Other detention (current) 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 Diagnosis inter pretation (observable entity) Ankylosing spondylitis of multiple sites in spine Diag nosis interpretation (observable entity) Ankylosing spondylitis of multiple sites in spine Diag nosis interpretation (observable entity) Ankylosing spondylitis of multiple sites in spine Diag nosis interpretation (observable entity) Ankylosing spondylitis of multiple sites in spine Diag nosis interpretation (observable entity) Other detention (current) 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 Diagnosis inter pretation (observable entity) Ankylosing spondylitis of multiple sites in spine Diag nosis interpretation (observable entity) 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 Diagnosis inter pretation (observable entity) Ankylosing spondylitis of multiple sites in spine Diag nosis interpretation (observable entity) Other detention (current) 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 Diagnosis inter pretation (observable entity) Ankylosing spondylitis of multiple sites in spine Diag nosis interpretation (observable entity) Ankylosing spondylitis of multiple sites in spine Diag nosis interpretation (observable entity) Ankylosing spondylitis of multiple sites in spine Diag nosis interpretation (observable entity) Ankylosing spondylitis of multiple sites in spine Diag nosis interpretation (observable entity) Other detention (current) 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 Diagnosis inter pretation (observable entity) Ankylosing spondylitis of multiple sites in spine Diag nosis interpretation (observable entity) Ankylosing spondylitis of multiple sites in spine Diag nosis interpretation (observable entity) Ankylosing spondylitis of multiple sites in spine Diag nosis interpretation (observable entity) Other detention (current) 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 Diagnosis inter pretation (observable entity) Lumbago Diagnosis interpretation (observable entity) Ankylosing spondylitis of multiple sites in spine Diag nosis interpretation (observable entity) Encounter for screening for respiratory tuberculosis D iagnosis interpretation (observable entity) Ankylosing spondylitis of multiple sites in spine Diag nosis interpretation (observable entity) Other detention (current) 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 Diagnosis inter pretation (observable entity) Ankylosing spondylitis of multiple sites in spine Diag nosis interpretation (observable entity) Ankylosing spondylitis of multiple sites in spine Diag nosis interpretation (observable entity) 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 Diagnosis 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 pretation (observable entity) Ankylosing spondylitis of multiple sites in spine Diag nosis interpretation (observable entity) Other detention (current) 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 Diagnosis inter pretation (observable entity) Ankylosing spondylitis of multiple sites in spine Diag nosis interpretation (observable entity) Ankylosing spondylitis of multiple sites in spine Diag nosis interpretation (observable entity) Other detention (current) 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 Diagnosis inter pretation (observable entity) Ankylosing spondylitis of multiple sites in spine Diag nosis interpretation (observable entity) Other detention (current) 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 Diagnosis inter pretation (observable entity) Ankylosing spondylitis of multiple sites in spine Diag nosis interpretation (observable entity) Ankylosing spondylitis of multiple sites in spine Diag nosis interpretation (observable entity) Ankylosing spondylitis of multiple sites in spine Diag nosis interpretation (observable entity) 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 Diagnosis 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 pretation (observable entity) Ankylosing spondylitis of multiple sites in spine Diag nosis interpretation (observable entity) Ankylosing spondylitis of multiple sites in spine Diag nosis interpretation (observable entity) Other detention (current) 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 Diagnosis inter pretation (observable entity) Ankylosing spondylitis of multiple sites in spine Diag nosis interpretation (observable entity) Ankylosing spondylitis of multiple sites in spine Diag nosis interpretation (observable entity) Other detention (current) 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 Diagnosis inter pretation (observable entity) Ankylosing spondylitis of multiple sites in spine Diag nosis interpretation (observable entity) 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 Diagnosis inter pretation (observable entity) Ankylosing spondylitis of multiple sites in spine Diag nosis interpretation (observable entity) 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 Diagnosis inter pretation (observable entity) Pain in right shoulder Diagnosis interpretation (observable entity) Ankylosing spondylitis of multiple sites in spine Diag nosis interpretation (observable entity) Other detention (current) 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 Diagnosis inter pretation (observable entity) Ankylosing spondylitis of multiple sites in spine Diag nosis interpretation (observable entity) 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 The mapped diagnosis code was Ankylosing spondylitis, 720.0, added by Reyna Montiel MD, with responsible provider Reyna Montiel MD. Onset date 06/21/2014; last addressed on 07/27/2014. Rheumatoid factor negative Problem (finding) - Active Type 2 diabetes mellitus Problem (finding) - Active Essential hypertension Problem (finding) - Active Pure hypercholesterolemia Problem (finding) - Active Procedures Procedure Date No Information Results Test Name Date and Time Measure Units Reference Range Abnormal Flag St atus Comments No Information Advance Directives Directive Yes / No Effective Date File Name No Information Encounters Encounter Description Practice Location Reason(s) For Visit Diagnose s Date Provider Providers Copied on Encounter [facility], [address] [place] [address], [id number], [place] tel:[phone] [facility] No Information Sabrina Mosley. [address] [place] [address], [id number], [place]. tel:[phone] [facility], [address] [place] [address], [id number], [place] tel:[phone] [facility] Ankylosing spondylitis of multiple sites in spineOther detention (current) 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Low back pain Sabrina Mosley. [address] [place] [address], [id number], [place]. tel:[phone] Referring Provider: Alejandro Del Rio DO [address], [address]. tel:[phone] [facility], [address] [place] [address], [id number], [place] tel:[phone] [facility] Ankylosing spondylitis of multiple sites in spine Afshincoralestuardo Beck brooks. [address] [place] [address], [id number], [place]. tel:[phone] Referring Provider: Alejandro Del Rio DO[address], [address]. tel:[phone] [facility], [address] [place] [address], [id number], [place] tel:[phone] [facility] Ankylosing spondylitis of multiple sites in spine Leonie Holcomb. [address] [place], [place], [id number], [place]. tel:[phone] Referring Provider: Alejandro Del Rio DO[address], [address]. tel:[phone] [facility], [address] [place] [address], [id number], [place] tel:[phone] [facility] Ankylosing spondylitis of multiple sites in spine [facility] Beck i. [address] [place] [address], [id number], [place]. tel:[phone] Referring Provider: Alejandro Del Rio DO[address], [address]. tel:[phone] [facility], [address] [place] [address], [id number], [place] tel:[phone] [facility] Ankylosing spondylitis of multiple sites in spine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 Veena Noe. [address] [place] [address], [id number], [place]. tel:[phone] Referring Provider: Alejandro Del Rio [address], [address]. tel:[phone] [facility], [address] [place] [address], [id number], [place] tel:[phone] [facility] Ankylosing spondylitis of multiple sites in spine [facility] Beck i. [address] [place] [address], [id number], [place]. tel:[phone] Referring Provider: Alejandro Del Rio DO[address], [address]. tel:[phone] [facility], [address] [place] [address], [id number], [place] tel:[phone] [facility] Ankylosing spondylitis of multiple sites in spine Dinesh Solares i. [address] [place] [address], [id number], [place]. tel:[phone] Referring Provider: Alejandro Del Rio DO[address], [address]. tel:[phone] [facility], [address] [place] [address], [id number], [place] tel:[phone] [facility] Ankylosing spondylitis of multiple sites in spine [place] Beltran Diana. [address] [facility], [address], [place], [address], [place]. tel:[phone] Referring Provider: Alejandro Del Rio DO [address], [address]. tel:[phone] [facility], [address] [place] [address], [id number], [place] tel:[phone] [facility] Ankylosing spondylitis of multiple sites in spineOther detention (current) 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 Dinesh Orellana. [address] [place] [address], [id number], [place]. tel:[phone] Referring Provider: Alejandro Del Rio DO [address], [address]. tel:[phone] [facility], [address] [place] [address], [id number], [place] tel:[phone] [facility] Ankylosing spondylitis of multiple sites in spine Dinesh Solares i. [address] [place] [address], [id number], [place]. tel:[phone] Referring Provider: Alejandro Del Rio DO [address], [address]. tel:[phone] [facility], [address] [place] [address], [id number], [place] tel:[phone] [facility] Ankylosing spondylitis of multiple sites in spine [facility] i. [address] [place] [address], [id number], [place]. tel:[phone] Referring Provider: Alejandro Del Rio DO[address], [address]. tel:[phone] [facility], [address] [place] [address], [id number], [place] tel:[phone] [facility] Ankylosing spondylitis of multiple sites in spine [facility] i. [address] [place] [address], [id number], [place]. tel:[phone] Referring Provider: Alejandro Del Rio DO[address], [address]. tel:[phone] [facility], [address] [place] [address], [id number], [place] tel:[phone] [facility] Ankylosing spondylitis of multiple sites in spine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 Melany BROWN Diana. [address] [facility], [address], [place], [address], [place]. tel:[phone] Referring Provider: Alejandro Del Rio DO[address], [address]. tel:[phone] [facility], [address] [place] [address], [id number], [place] tel:[phone] [facility] Ankylosing spondylitis of multiple sites in spine [facility] i. [address] [place] [address] [place], [id number], [place]. tel:[phone] Referring Provider: Alejandro Del Rio DO[address], [address]. tel:[phone] [facility], [address] [place] [address], [id number], [place] tel:[phone] [facility] Ankylosing spondylitis of multiple sites in spine No Information R eferring Provider: Alejandro Del Rio DO[address], [address]. tel:[phone] [facility], [address] [place] [address], [id number], [place] tel:[phone] [facility] Ankylosing spondylitis of multiple sites in spine Dinesh constantino [address] [place] [address], [id number], [place]. tel:[phone] Referring Provider: Alejandro Del Rio DO[address], [address]. tel:[phone] [facility], [address] [place] [address], [id number], [place] tel:[phone] [facility] Ankylosing spondylitis of multiple sites in spine Dinesh constantino [address] [place] [address], [id number], [place]. tel:[phone] Referring Provider: Alejandro Del Rio DO[address], [address]. tel:[phone] [facility], [address] [place] [address], [id number], [place] tel:[phone] [facility] Ankylosing spondylitis of multiple sites in spine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Low back pain Melany BROWN Diana. [address] [facility] [address], [place], [address], [place]. tel:[phone] Referring Provider: Alejandro Del Rio DO, [address], [address]. tel:[phone] [facility], [address] [place] [address], [id number], [place] tel:[phone] [facility] Ankylosing spondylitis of multiple sites in spine Dinesh Solares i. [address] [place] [address], [id number], [place]. tel:[phone] Referring Provider: Alejandro Del Rio DO, [address], [address]. tel:[phone] [facility], [address] [place] [address], [id number], [place] tel:[phone] [facility] Ankylosing spondylitis of multiple sites in spine Rukhsana Brown. [address] [place] [address], [id number], [place]. tel:[phone] Referring Provider: Alejandro Del Rio DO, [address], [address]. tel:[phone] [facility], [address] [place] [address], [id number], [place] tel:[phone] [facility] Ankylosing spondylitis of multiple sites in spine Leonie Holcomb. [address] [place], [place], [id number], [place]. tel:[phone] Referring Provider: Alejandro Del Rio DO[address], [address]. tel:[phone] [facility], [address] [place] [address], [id number], [place] tel:[phone] [facility] Ankylosing spondylitis of multiple sites in spine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 Melany BROWN Diana. [address], [address], [place], [address], [place]. tel:[phone] Referring Provider: Alejandro Del Rio [address], [address]. tel:[phone] [facility], [address] [place] [address], [id number], [place] tel:[phone] [facility] Ankylosing spondylitis of multiple sites in spine [facility] [address], [id number], [place]. tel:[phone] Referring Provider: Alejandro Del Rio [address], [address]. tel:[phone] [facility], [address] [place] [address], [id number], [place] tel:[phone] [facility] Ankylosing spondylitis of multiple sites in spine [address], [id number], [place]. tel:[phone] Referring Provider: Alejandro Del Rio [address], [address]. tel:[phone] [facility], [address] [place] [address], [id number], [place] tel:[phone] [facility] Ankylosing spondylitis of multiple sites in spine [facility]. [address] [place] [address], [id number], [place]. tel:[phone] Referring Provider: Alejandro Del Rio [address], [address]. tel:[phone] [facility], [address] [place] [address], [id number], [place] tel:[phone] [facility] Ankylosing spondylitis of multiple sites in spineOther detention (current) 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 Melany BROWN Diana. [address], [address], [place], [address], [place]. tel:[phone] Referring Provider: Alejandro Del Rio DO[address], [address]. tel:[phone] [facility], [address] [place] [address], [id number], [place] tel:[phone] [facility]yl[facility] [address] [place] [address], [id number], [place]. tel:[phone] Referring Provider: Alejandro Del Rio DO[address], [address]. tel:[phone] [facility], [address] [place] [address], [id number], [place] tel:[phone] [facility] Ankylosing spondylitis of multiple sites in spine [facility] i. [address] [place] [address], [id number], [place]. tel:[phone] Referring Provider: Alejandro Del Rio DO[address], [address]. tel:[phone] [facility], [address] [place] [address], [id number], [place] tel:[phone] [facility] Ankylosing spondylitis of multiple sites in spine [facility] Beck i. [address] [place] [address], [id number], [place]. tel:[phone] Referring Provider: Alejandro Del Rio DO[address], [address]. tel:[phone] [facility], [address] [place] [address], [id number], [place] tel:[phone] [facility] Ankylosing spondylitis of multiple sites in spineOther detention (current) 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 Melany BROWN Diana. [address] [facility], [address], [place], [address], [place]. tel:[phone] Referring Provider: Alejandro Del Rio [address], [address]. tel:[phone] [facility], [address] [place] [address], [id number], [place] tel:[phone] [facility] Ankylosing spondylitis of multiple sites in spine coral Beck i. [address] [place] [address], [id number], [place]. tel:[phone] Referring Provider: Alejandro Del Rio DO[address], [address]. tel:[phone] [facility], [address] [place] [address], [id number], [place] tel:[phone] [facility] Ankylosing spondylitis of multiple sites in spine [facility] i. [address] [place] [address], [id number], [place]. tel:[phone] Referring Provider: Alejandro Del Rio DO[address], [address]. tel:[phone] [facility], [address] [place] [address], [id number], [place] tel:[phone] [facility] Ankylosing spondylitis of multiple sites in spine No Information R eferring Provider: Alejandro Del Rio DO[address], [address]. tel:[phone] [facility], [address] [place] [address], [id number], [place] tel:[phone] [facility] Ankylosing spondylitis of multiple sites in spine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 Melany BROWN Diana. [address] [facility], [address], [place], [address], [place]. tel:[phone] Referring Provider: Alejandro Del Rio [address], [address]. tel:[phone] [facility], [address] [place] [address], [id number], [place] tel:[phone] [facility] Ankylosing spondylitis of multiple sites in spine No Information R eferring Provider: Alejandro Del Rio [address], [address]. tel:[phone] [facility], [address] [place] [address], [id number], [place] tel:[phone] [facility] Ankylosing spondylitis of multiple sites in spine Dinesh constantino [address] [place] [address], [id number], [place]. tel:[phone] Referring Provider: Alejandro Del Rio [address], [address]. tel:[phone] [facility], [address] [place] [address], [id number], [place] tel:[phone] [facility] Ankylosing spondylitis of multiple sites in spine Dinesh constantino [address] [place] [address], [id number], [place]. tel:[phone] Referring Provider: Alejandro Del Rio DO[address], [address]. tel:[phone] [facility], [address] [place] [address], [id number], [place] tel:[phone] [facility] Ankylosing spondylitis of multiple sites in spineOther detention (current) 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 Melany BROWN Diana. [address], [address], [place], [address], [place]. tel:[phone] Referring Provider: Alejandro Del Rio DO[address], [address]. tel:[phone] [facility], [address] [place] [address], [id number], [place] tel:[phone] [facility] Ankylosing spondylitis of multiple sites in spine Rukhsana Brown. [address] [place] [address], [id number], [place]. tel:[phone] Referring Provider: Alejandro Del Rio DO[address], [address]. tel:[phone] [facility], [address] [place] [address], [id number], [place] tel:[phone] [facility] Ankylosing spondylitis of multiple sites in spine Dinesh Solares i. [address] [place] [address], [id number], [place]. tel:[phone] Referring Provider: Alejandro Del Rio DO[address], [address]. tel:[phone] [facility], [address] [place] [address], [id number], [place] tel:[phone] [facility] Ankylosing spondylitis of multiple sites in spine Dinesh Beck i. [address] [place] [address], [id number], [place]. tel:[phone] Referring Provider: Alejandro Del Rio DO, [address], [address]. tel:[phone] [facility], [address] [place] [address], [id number], [place] tel:[phone] [facility] Ankylosing spondylitis of multiple sites in spineOther detention (current) 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 Khcoralestuardo Ramcarla. [address] [place] [address], [id number], [place]. tel:[phone] Referring Provider: Alejandro Del Rio DO , [address], [address]. tel:[phone] [facility], [address] [place] [address], [id number], [place] tel:[phone] [facility] Ankylosing spondylitis of multiple sites in spine Khcoralestuardo Beck i. [address] [place] [address], [id number], [place]. tel:[phone] Referring Provider: Alejandro Del Roi DO, [address], [address]. tel:[phone] [facility], [address] [place] [address], [id number], [place] tel:[phone] 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 [address] [place] [address], [id number], [place]. tel:[phone] [facility], [address] [place] [address], [id number], [place] tel:[phone] [facility] Ankylosing spondylitis of multiple sites in spineOther detention (current) 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 Melany BROWN Diana. [address], [address], [place], [address], [place]. tel:[phone] Referring Provider: Alejandro Del Rio DO[address], [address]. tel:[phone] [facility], [address] [place] [address], [id number], [place] tel:[phone] [facility] Ankylosing spondylitis of multiple sites in spine No Information R eferring Provider: Alejandro Del Rio [address], [address]. tel:[phone] [facility], [address] [place] [address], [id number], [place] tel:[phone] [facility] Ankylosing spondylitis of multiple sites in spine [facility] i. [address] [place] [address], [id number], [place]. tel:[phone] Referring Provider: Alejandro Del Rio DO[address], [address]. tel:[phone] [facility], [address] [place] [address], [id number], [place] tel:[phone] [facility] Ankylosing spondylitis of multiple sites in spine [facility] i. [address] [place] [address], [id number], [place]. tel:[phone] Referring Provider: Alejandro Del Rio DO[address], [address]. tel:[phone] [facility], [address] [place] [address], [id number], [place] tel:[phone] [facility] Ankylosing spondylitis of multiple sites in spineOther detention (current) 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 Alisonestuardo Reyna. [address] [place] [address], [id number], [place]. tel:[phone] Referring Provider: Alejandro Del Rio [address], [address]. tel:[phone] [facility], [address] [place] [address], [id number], [place] tel:[phone] [facility] Ankylosing spondylitis of multiple sites in spine Dinesh Solares i. [address] [place] [address], [id number], [place]. tel:[phone] Referring Provider: Alejandro Del Rio [address], [address]. tel:[phone] [facility], [address] [place] [address], [id number], [place] tel:[phone] [facility] Ankylosing spondylitis of multiple sites in spine Alisonestuardo Beck i. [address] [place] [address], [id number], [place]. tel:[phone] Referring Provider: Alejandro Del Rio [address], [address]. tel:[phone] [facility], [address] [place] [address], [id number], [place] tel:[phone] [facility] Ankylosing spondylitis of multiple sites in spineOther detention (current) 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Lumbago Harry Pozo. [address] [place] [address], [id number], [place]. tel:[phone] Referring Provider: Alejandro Del Rio [address], [address]. tel:[phone] [facility], [address] [place] [address], [id number], [place] tel:[phone] [facility] Ankylosing spondylitis of multiple sites in spine Dinesh Solares i. [address] [place] [address], [id number], [place]. tel:[phone] Referring Provider: Alejandro Del Rio DO, [address], [address]. tel:[phone] [facility], [address] [place] [address], [id number], [place] tel:[phone] [facility] Encounter for screening for respiratory tuberculosis No Information [facility], [address] [place] [address], [id number], [place] tel:[phone] [facility] Ankylosing spondylitis of multiple sites in spineOther detention (current) 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 Rome Simon. [address] [place] [address], [id number], [place]. tel:[phone] Referring Provider: Alejandro Del Rio DO [address], [address]. tel:[phone] [facility], [address] [place] [address], [id number], [place] tel:[phone] [facility] Ankylosing spondylitis of multiple sites in spine Dinesh Solares i. [address] [place] [address], [id number], [place]. tel:[phone] Referring Provider: Alejandro Del Rio DO, [address], [address]. tel:[phone] [facility], [address] [place] [address], [id number], [place] tel:[phone] [facility] Ankylosing spondylitis of multiple sites in spine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 No Information Referring Provider: Alejandro Del Rio DO[address], [address]. tel:[phone] [facility], [address] [place] [address], [id number], [place] tel:[phone] [facility] Ankylosing spondylitis of multiple sites in spine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 Kiya Burkett. [address] [place] [address], [id number], [place]. tel:[phone] Referring Provider: Alejandro Del Rio DO , [address], [address]. tel:[phone] [facility], [address] [place] [address], [id number], [place] tel:[phone] [facility] Ankylosing spondylitis of multiple sites in spine Dinesh Solares i. [address] [place] [address], [id number], [place]. tel:[phone] Referring Provider: Alejandro Del Rio DO, [address], [address]. tel:[phone] [facility], [address] [place] [address], [id number], [place] tel:[phone] [facility] Ankylosing spondylitis of multiple sites in spine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 Veena Noe. [address] [place] [address], [id number], [place]. tel:[phone] Referring Provider: Alejandro Del Rio DO , [address], [address]. tel:[phone] [facility], [address] [place] [address], [id number], [place] tel:[phone] [facility] Ankylosing spondylitis of multiple sites in spine Dinesh Solares i. [address] [place] [address], [id number], [place]. tel:[phone] Referring Provider: Alejandro Del Rio DO[address], [address]. tel:[phone] [facility], [address] [place] [address], [id number], [place] tel:[phone] [facility] 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Ankylosing spondylitis of multiple sites in spine Afshincoralestuardo Padillacarla. [address] [place] [address], [id number], [place]. tel:[phone] Referring Provider: Alejandro Del Rio DO [address], [address]. tel:[phone] [facility], [address] [place] [address], [id number], [place] tel:[phone] [facility] Ankylosing spondylitis of multiple sites in spine Dinesh Padillaz i. [address] [place] [address], [id number], [place]. tel:[phone] Referring Provider: Alejandro Del Rio DO[address], [address]. tel:[phone] [facility], [address] [place] [address], [id number], [place] tel:[phone] [facility] Ankylosing spondylitis of multiple sites in spineOther detention (current) 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 Veena Noe. [address] [place] [address], [id number], [place]. tel:[phone] Referring Provider: Alejandro Del Rio DO [address], [address]. tel:[phone] [facility], [address] [place] [address], [id number], [place] tel:[phone] [facility] Ankylosing spondylitis of multiple sites in spine Dinesh Solares i. [address] [place] [address], [id number], [place]. tel:[phone] Referring Provider: Alejandro Del Rio DO[address], [address]. tel:[phone] [facility], [address] [place] [address], [id number], [place] tel:[phone] [facility] Ankylosing spondylitis of multiple sites in spineOther detention (current) 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 Harry Pozo. [address] [place] [address], [id number], [place]. tel:[phone] Referring Provider: Alejandro Del Rio DO [address], [address]. tel:[phone] [facility], [address] [place] [address], [id number], [place] tel:[phone] [facility] Ankylosing spondylitis of multiple sites in spine alyssa Solares i. [address] [place] [address], [id number], [place]. tel:[phone] Referring Provider: Alejandro Del Rio DO[address], [address]. tel:[phone] [facility], [address] [place] [address], [id number], [place] tel:[phone] [facility] Ankylosing spondylitis of multiple sites in spine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 Harry Pozo. [address] [place] [address], [id number], [place]. tel:[phone] Referring Provider: Alejandro Del Roi [address], [address]. tel:[phone] [facility], [address] [place] [address], [id number], [place] tel:[phone] [facility] Ankylosing spondylitis of multiple sites in spine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 Harry Pozo. [address] [place] [address], [id number], [place]. tel:[phone] Referring Provider: Alejandro Del Rio [address], [address]. tel:[phone] [facility], [address] [place] [address], [id number], [place] tel:[phone] [facility] Ankylosing spondylitis of multiple sites in spine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Pain in right shoulder Kiya Burkett. [address] [place] [address], [id number], [place]. tel:[phone] Referring Provider: Alejandro Del Rio [address], [address]. tel:[phone] [facility], [address] [place] [address], [id number], [place] tel:[phone] [facility] Ankylosing spondylitis of multiple sites in spine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 Renea Darby. [address] [place] [address], [id number], [place]. tel:[phone] Referring Provider: Alejandro Del Rio [address], [address]. tel:[phone] [facility], [address] [place] [address], [id number], [place] tel:[phone] [facility] Ankylosing spondylitis of multiple sites in spine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 MarionJaimeAshwin Mehnaz. [address] [place] [address], [id number], [place]. tel:[phone] Referring Provider: Alejandro Del Rio [address], [address]. tel:[phone] [facility], [address] [place] [address], [id number], [place] tel:[phone] [facility] Ankylosing spondylitis of multiple sites in spine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 Harry Pozo. [address] [place] [address], [id number], [place]. tel:[phone] Referring Provider: Alejandro Del Rio [address], [address]. tel:[phone] [facility], [address] [place] [address], [id number], [place] tel:[phone] [facility] Ankylosing spondylitis of multiple sites in spineOther detention 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 No Information Referring Provider: Alejandro Del Rio [address], [address]. tel:[phone] [facility], [address] [place] [address], [id number], [place] tel:[phone] [facility] No Information Dinesh Orellana. [address] [place] [address], [id number], [place]. tel:[phone] Referring Provider: Alejandro Del Rio [address], [address]. tel:[phone] [facility], [address], [place], [id number], [place] tel:[phone] [facility] No Information Dinesh Orellana. [address], [place], [id number], [place]. tel:[phone] Referring Provider: Alejandro Del Rio DO [address], [address]. tel:[phone] Family History Family Member Type Diagnosis Age At Onset Problem (finding) Family history of High Blood P reasure Problem (finding) Family history of Arthritis Immunizations Vaccine Date Status Comments Historical Influenza Vaccine administered Not e: APPROX ; Source: Other Provider Influenza, injectable, MDCK, preservativ e free, 0.5 mL dosage, Flucelvax Quad administered Source: New Immuniza tion Record Influenza, injectable, MDCK, Flucelvax Quad 18 administered Note: per patient ; Source: Certificate Influenza, injectable, quadrivalent, spl it virus, 18 years or older Afluria Quad administered Note: Invalid docume nted admin date was . ; Source: Other Provider Influenza, injectable, trivalent, split virus, 4 years and older, Fluvirin administered Note: approx ; Sour e: Other Provider Influenza, split virus, injectable, 3 years and older Fluvirin administered Note: approx ; Source: Other Provider Never had Zoster administered Source: New Imm unization Record Influenza virus vaccine, Injection administered Source: Other Provider Pneumococcal polysaccharide PPV23 administered Note: Approx.Invalid documented admin date was . ; Source: Other Provider pneumo (2 yrs or older) (PPV23) administered Source: Other Provider Payers Payer name Insurance type Covered constitution party ID Authorization(s ) Medicare [id number] [place] [id number] Medicare [id number] [place] [id number] Social History Type Description Quantity Date Captured Comments Alcohol Use Details Unknown Caffeine Use Details Unknown Tobacco Use Status No Information Smoking Status No Information Sex Male Vital Signs Date / Time: Height Weight BMI Pulse Rate Blood Pressure Temperatu re Respiratory Rate Body Surface Area Head Circumference BMI percentile Pulse Ox In haled Ox No Information Chief Complaint And Reason For Visit No Information Reason For Referral Reason For Referral No Information Plan Of Treatment Date Type Action Status Referral Referred To: LINDA POSADA [address], [address] [place], [phone] Ordered: Referrals: Orthopedic Surgery. LINDA POSADA. Consult Appointment date/timeframe: 01/13/2016 ordered Referral Ordered: *SHOULDER X-RAY, COMPLETE, 2 VIEW ordered Referral Ordered: *SPINE X-RAY, ANTEROPOSTERIOR/LATERAL ordered Referral Ordered: *SACROILIAC JOINTS X-RAY, MORE THAN 3 VIEWS ordered Referral Ordered: *HAND X-RAY, 2 VIEWS Right ordered Referral Ordered: *HAND X-RAY, 2 VIEWS Left ordered History Of Present Illness Encounter Date Complaint History Of Present I llness No Information Functional Status Date Functional Assessment No Information Medications Administered Medication Instructions Dosage Effective Dates (start - stop) Sta tus Comments No Information Instructions Date Instruction Additional Informati on Discussed / Reviewed Labs Risks/benefits of medications reviewed Discussed importance of hold ing DMARDs/ biologics if patient develops an infection and to notify the treating physician Labs ordered to check disease activity. Labs ordered to check blood counts, liver and kidney functions to monitor safety of medication. Reviewed importance of compl iance/adherence to medications prescribed Risks/benefits of medications reviewed Discussed importance of hold ing DMARDs/ biologics if patient develops an infection and to notify the treating physician Reviewed importance of compl iance/adherence to medications prescribed Risks/benefits of medications reviewed Discussed importance of hold ing DMARDs/ biologics if patient develops an infection and to notify the treating physician follow with pain management Reviewed importance of compl iance/adherence to medications prescribed Risks/benefits of medications reviewed Discussed importance of hold ing DMARDs/ biologics if patient develops an infection and to notify the treating physician Reviewed importance of compl iance/adherence to medications prescribed Risks/benefits of medications reviewed Discussed importance of hold ing DMARDs/ biologics if patient develops an infection and to notify the treating physician Reviewed importance of compl iance/adherence to medications prescribed Risks/benefits of medications reviewed Discussed importance of hold ing DMARDs/ biologics if patient develops an infection and to notify the treating physician Discussed importance of hold ing DMARDs/ biologics if patient develops an infection and to notify the treating physician Reviewed importance of compl iance/adherence to medications prescribed Risks/benefits of medications reviewed Reviewed importance of compl iance/adherence to medications prescribed Risks/benefits of medications reviewed Discussed importance of hold ing DMARDs/ biologics if patient develops an infection and to notify the treating physician Reviewed importance of compl iance/adherence to medications prescribed Risks/benefits of medications reviewed Discussed importance of hold ing DMARDs/ biologics if patient develops an infection and to notify the treating physician Discussed / Reviewed Labs Patient plan printed and given along wit h recommendations call if symptoms worsen maintain adequate water intake every day Reviewed importance of compl iance/adherence to medications prescribed Avoid live vaccines Weight reduction urged. Risks/benefits of medications reviewed Discussed importance of hold ing DMARDs/ biologics if patient develops an infection and to notify the treating physician Labs ordered to check disease activity. Labs ordered to check blood counts, liver and kidney functions to monitor safety of medication. Reviewed importance of compl iance/adherence to medications prescribed Avoid live vaccines Exercise more Discussed importance of hold ing DMARDs/ biologics if patient develops an infection and to notify the treating physician Stretching Labs ordered to check blood counts, liver and kidney functions to monitor safety of medication. Discussed / Reviewed Labs hold medication and call if any side eff ect develops call if symptoms worsen Risks/benefits of medications reviewed Labs ordered to check disease activity. Risks/benefits of medications reviewed Diagnostic studies discussed/reviewed: L abs Labs ordered to check disease activity. Labs ordered to check blood counts, liver and kidney functions to monitor safety of medication. Discussed / Reviewed Labs continue same medication plan call if symptoms worsen Risks/benefits of medications reviewed Labs ordered to check disease activity. Labs ordered to check blood counts, liver and kidney functions to monitor safety of medication. Discussed / Reviewed Labs continue same medication plan call if symptoms worsen call if symptoms worsen Avoid live vaccines Discussed importance of hold ing DMARDs/ biologics if patient develops an infection and to notify the treating physician Labs ordered to check disease activity. Labs ordered to check blood counts, liver and kidney functions to monitor safety of medication. Daily range of motion exercises for symp tomatic joints recommended. continue same medication plan Avoid live vaccines Discussed importance of hold ing DMARDs/ biologics if patient develops an infection and to notify the treating physician Labs ordered to check disease activity. Labs ordered to check blood counts, liver and kidney functions to monitor safety of medication. Daily range of motion exercises for symp tomatic joints recommended. call if symptoms worsen Risks/benefits of medications reviewed Labs ordered to check disease activity. Labs ordered to check blood counts, liver and kidney functions to monitor safety of medication. Discussed / Reviewed Labs hold medication and call if any side eff ect develops continue same medication plan call if symptoms worsen Discussed importance of hold ing DMARDs/ biologics if patient develops an infection and to notify the treating physician Stretching Reviewed importance of compl iance/adherence to medications prescribed Avoid live vaccines Physical Examination Exam Findings Details No Information
--- OUTSIDE RECORDS SUMMARY | 2020-09-26 06:36 | CCD | Continuity of Care Document ---
Author Author Medardo NICOLE Organization Unknown Address [address] [facility], [address] [place] [address] Phone [phone] Care Team Providers Care Tower Observer Name Role Phone Alejandro Del Rio D.O. AUTM [phone] Dalton Arita AUTM [phone] AUTM Unavailable Juan Manuel Segal M.D. AUTM [phone] Problems Active Problems Provider Date Type 2 [...] syndrome Audie Carpenter MD Onset: 09/15/2011 Mabel Alegria Corey BERNAL PA-C Onset: 05/25/2018 Social History Type Date Description Comments Sex Unknown Tobacco Use Start: Unknown Never Smoked Cigarettes ETOH Use 1 A Month Tobacco Use Start: Unknown Non Smoker Smoking Status Reviewed: 08/20/20 Non Smoker Allergies, Adverse Reactions, Alerts Active Allergies Reaction Severity Comments Date Lipitor 01/04/2015 Inactive Allergies NKDA 07/18/2009 Medications Active Medications SIG Qnty Indications Ordering Provide r Date Amoxicillin/Clavulanate Potassium 875-125mg Tablets 1 tab by mouth twice a day for 10 days 20tabs To tee Fields MD 08/15/2020 Chlorhexidine Gluconate 0.12% Solu tion 15 milliliters by mouth swish and spit three times a day for 10 days 473ml Nba Fields MD 08/15/2020 CPAP [facility] Audie Carpenter MD 08/06 [...] 100mg Tablets 1 po q d Unknown Immunizations CPT Code Status Date Vaccine Lot # [id number] Given 06/19/2016 Influenza Virus Split 3 Yrs And Above For Intramuscular Use 50899 Given 07/03/2015 Influenza Virus Split 3 Yrs And Above For Intramuscular Use Q2036 Given 06/15/2012 Influenza Vaccine 3 Years Of Age Or Older (Flulaval) Q2036 Given 07/15/2011 Influenza Vaccine 3 Years Of Age Or Older (Flulaval) 17694 Given 06/14/2008 Influenza Vaccine Vital Signs Date Vital Result Comment 08/22/2020 9:43am Height 70 inches 5'10" Weight 245.00 lb BMI (Body Mass Index) 35.1 kg/m2 [place] Body Weight 166 lb Weight 111.132 kg BSA (Body Surface Area) 2.28 m2 08/20/2020 9:40am BP Systolic 124 mmHg BP Diastolic 78 mmHg Heart Rate 78 /min O2 % BldC Oximetry 97 % Room Air Height 70 inches 5'10" Weight 247.00 lb BMI (Body Mass Index) 35.4 kg/m2 [place] Body Weight 166 lb Weight 112.039 kg BSA (Body Surface Area) 2.28 m2 Results Test Acquired Date Facility Test Result H/L Range Note BUN & Creatinine ([facility]) 08/27/2020 [facility] [address] [place] [address] [phone] Blood Urea Nitrogen 23 mg/dL High 7-18 Creatinine With GFR 08/27/2020 [facility] nter Main Lab [address], [place] [id number] [phone] Creatinine For GFR 1.57 mg/dL High 0.70-1.30 Glomerular Filtration Rate 46.5 Normal >42 1 Laboratory test finding 08/15/2020 [facility] Main Lab [address] [place] [address] [phone] Pathology Request For Service (SEE NOTE) 2 Laboratory test finding 08/15/2020 [facility] Main Lab [address] [place] [address] [phone] Bedside Glucose 152 mg/dL High 83-110 1 Units are mL/min/1.73 m2 Chronic Kidney Disease Staging per NKF: Stage I & II GFR >=60 Normal to Mildly Decreased Stage III GFR 30-59 Moderately Decreased Stage IV GFR 15-29 Severely Decreased Stage V GFR <15 Very Little GFR Left ESRD GFR <15 on FLAME DEGREASER 2 FINAL DIAGNOSIS A-Left lateral oral tongue, superior, 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 B-Left lateral oral tongue, inferior, biopsy: Invasive squamous carcinoma, well to moderately differentiated. 08/16/2020 - 1309 CLINICAL DIAGNOSIS Left oral tongue leukoplakia 08/15/2020 [...] 08/16/2020 1310 Procedures Date Code Description Status 08/15/2020 66205 Biopsy Tongue Anterior Two-Third s Completed 07/17/2020 08626 Remove Impacted Cerumen Complete d Medical Devices Description No Information Available Encounters Type Date Location Provider Dx Diagnosis Office Visit 08/22/2020 9:30a [facility] Raji almaraz II PAJaimeC C02.9 Malignant neoplasm of tongue, unspecifie d Office Visit 08/20/2020 9:45a [facility] Lawrenc essie Carpenter MD G47.33 Obstructive sleep apnea (adult) (pediatr ic) Office Visit 07/17/2020 10:15a [facility] Nba Fields MD 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, including tongue H72.02 Central perforation of tympa cuong membrane, left ear H61.22 Impacted cerumen, left ear Assessments Date Code Description Provider 09/04/2020 C02.9 Malignant neoplasm of tongue, un specified Nba Fields MD 08/22/2020 C02.9 Malignant neoplasm of tongue, un specified Raji Nicole II, PA-C 08/20/2020 G47.33 Obstructive sleep apnea (adult) (pediatric) Audie Carpenter MD 08/15/2020 C02.9 Malignant neoplasm of tongue, un specified Nba Fielsd MD 07/17/2020 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, incl uding tongue Nba Fields MD 07/17/2020 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, left ear Nba Fields MD 07/17/2020 H61.22 Impacted cerumen, left ear Nba Fields MD Plan of Treatment Future Appointment(s):* 09/11/2020 11:00 am - Raji Nicole II, PA-C at [facility] * 08/13/2021 9:45 am - Audie Carpenter MD at [facility] 09/04/2020 - Nba Fields MD* C02.9 Malignant neoplasm of tongue, unspecified* New Xrays:* MRI Neck W/ & W/O Contrast 70357, Scheduled: 09/13/20 Functional Status Functional Condition Comment Date Status C-Pap Active Mental Status Description No Information Available Referrals Description No Information Available
--- OUTSIDE RECORDS SUMMARY | 2020-09-26 06:36 | CCD | Continuity of Care Document ---
Author Author Medardo FIELDS MD Organization Unknown Address [address] [address] Phone [phone] Care Team Providers Care Manager Steel Name Role Phone Alejandro Del Rio D.O. AUTM [phone] Dalton Arita AUTM [phone] AUTM Unavailable Juan Manuel Segal M.D. AUTM [phone] Problems Active Problems Provider Date Type 2 [...] CPT Code Status Date Vaccine Lot # [id number] Given 06/19/2016 Influenza Virus Split 3 Yrs And Above For Intramuscular Use 75216 Given 07/03/2015 Influenza Virus Split 3 Yrs And Above For Intramuscular Use Q2036 Given 06/15/2012 Influenza Vaccine 3 Years Of Age Or Older (Flulaval) Q2036 Given 07/15/2011 Influenza Vaccine 3 Years Of Age Or Older (Flulaval) 63190 Given 06/14/2008 Influenza Vaccine Vital Signs Date Vital Result Comment 08/22/2020 9:43am Height 70 inches 5'10" Weight 245.00 lb BMI (Body Mass Index) 35.1 kg/m2 [place] Body Weight 166 lb Weight 111.132 kg BSA (Body Surface Area) 2.28 m2 08/20/2020 9:40am BP Systolic 124 mmHg BP Diastolic 78 mmHg Heart Rate 78 /min O2 % BldC Oximetry 97 % Room Air Height 70 inches 5'10" Weight 247.00 lb BMI (Body Mass Index) 35.4 kg/m2 [place] Body Weight 166 lb Weight 112.039 kg BSA (Body Surface Area) 2.28 m2 Results Test Acquired Date Facility Test Result H/L Range Note BUN & Creatinine ([facility]) 08/27/2020 [facility] Main Lab [address] [place] [address] [phone] Blood Urea Nitrogen 23 mg/dL High 7-18 Creatinine With GFR 08/27/2020 [facility] nter Main Lab [address] [place], [place] [id number] [phone] Creatinine For GFR 1.57 mg/dL High 0.70-1.30 Glomerular Filtration Rate 46.5 Normal >42 1 Laboratory test finding 08/15/2020 [facility] Main Lab [address] [place] [address] [phone] Pathology Request For Service (SEE NOTE) 2 Laboratory test finding 08/15/2020 [facility] Main Lab [address] [place] [address] [phone] Bedside Glucose 152 mg/dL High 83-110 1 Units are mL/min/1.73 m2 Chronic Kidney Disease Staging per NKF: Stage I & II GFR >=60 Normal to Mildly Decreased Stage III GFR 30-59 Moderately Decreased Stage IV GFR 15-29 Severely Decreased Stage V GFR <15 Very Little GFR Left ESRD GFR <15 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 FINAL DIAGNOSIS A-Left lateral oral tongue, [...] 1310 Procedures Date Code Description Status 08/15/2020 39814 Biopsy Tongue Anterior Two-Third s Completed 07/17/2020 64330 Remove Impacted Cerumen Complete d Medical Devices Description No Information Available Encounters Type Date Location Provider Dx Diagnosis Office Visit 08/22/2020 9:30a [facility] Raji almaraz II, PA-C C02.9 Malignant neoplasm of tongue, unspecifie d Office Visit 08/20/2020 9:45a [facility] Lawrenc essie Carpenter MD G47.33 Obstructive sleep apnea (adult) (pediatr ic) Office Visit 07/17/2020 10:15a [facility] Nba Fields MD K13.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 [...] 9:45 am - Audie Carpenter MD at [facility] 09/04/2020 - Nba Fields MD* C02.9 Malignant neoplasm of tongue, unspecified* New Xrays:* MRI Neck W/ & W/O Contrast 72300, Ordered: 09/04/20 Functional Status Functional Condition Comment Date Status C-Pap Active Mental Status Description No Information Available Referrals Description No Information Available
--- OUTSIDE RECORDS SUMMARY | 2020-09-26 06:36 | CCD | Continuity of Care Document ---
Author Author [facility] Organization [facility] Address Unknown Phone Unavailable Care Team Providers Care Java Web Services Developer Name Role Phone Wall Dimitri SOLORZANO Unavailable [...] every da y Not Available - Active ondansetron HCl 8 mg tablet take 1 tablet by oral route 3 times every day 8 MG - No Longer Active metformin 500 mg tablet take 1 tablet by oral route 2 times every day with morning and evening meals 500 MG - No Longer Active Problems Condition Type Effective Dates (start - stop) Clinical S tatus Comments Ankylosing spondylitis of multiple sites in spine Diag nosis interpretation (observable entity) Other residential (current) 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 Diagnosis inter pretation (observable [...] spine Diag nosis interpretation (observable entity) Other residential (current) 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 Diagnosis inter pretation (observable entity) Ankylosing spondylitis of multiple sites in spine Diag nosis interpretation (observable entity) Ankylosing spondylitis of multiple sites in spine Diag nosis interpretation (observable entity) Ankylosing spondylitis of multiple sites in spine Diag nosis interpretation (observable entity) - Ankylosing spondylitis of multiple sites in spine Diag nosis interpretation (observable entity) Other tank 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 gauger (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) 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 Diagnosis inter pretation (observable entity) Ankylosing spondylitis of multiple sites in spine Diag nosis interpretation (observable entity) Ankylosing spondylitis of multiple sites in spine Diag nosis interpretation (observable entity) Ankylosing spondylitis of multiple sites in spine Diag nosis interpretation (observable entity) Ankylosing spondylitis of multiple sites in spine Diag nosis interpretation (observable entity) Other residential (current) 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 Diagnosis inter pretation (observable [...] spine Diag nosis interpretation (observable entity) Other residential (current) 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 Diagnosis inter pretation (observable [...] spine Diag nosis interpretation (observable entity) Other residential (current) 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 Diagnosis inter pretation (observable entity) Ankylosing spondylitis of multiple sites in spine Diag nosis interpretation (observable entity) Ankylosing spondylitis of multiple sites in spine Diag nosis interpretation (observable entity) Ankylosing spondylitis of multiple sites in spine Diag nosis interpretation (observable entity) Ankylosing spondylitis of multiple sites in spine Diag nosis interpretation (observable entity) Other residential (current) 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 Diagnosis inter pretation (observable entity) Ankylosing spondylitis of multiple sites in spine Diag nosis interpretation (observable entity) Ankylosing spondylitis of multiple sites in spine Diag nosis interpretation (observable entity) Ankylosing spondylitis of multiple sites in spine Diag nosis interpretation (observable entity) Ankylosing spondylitis of multiple sites in spine Diag nosis interpretation (observable entity) Other residential (current) 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 Diagnosis inter pretation (observable entity) Ankylosing spondylitis of multiple sites in spine Diag nosis interpretation (observable entity) Ankylosing spondylitis of multiple sites in spine Diag nosis interpretation (observable entity) Ankylosing spondylitis of multiple sites in spine Diag nosis interpretation (observable entity) Ankylosing spondylitis of multiple sites in spine Diag nosis interpretation (observable entity) Other tank terminal gauger (current) 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 Diagnosis inter pretation (observable entity) Ankylosing spondylitis of multiple sites in spine Diag nosis interpretation (observable entity) Ankylosing spondylitis of multiple sites in spine Diag nosis interpretation (observable entity) Ankylosing spondylitis of multiple sites in spine Diag nosis interpretation (observable entity) Ankylosing spondylitis of multiple sites in spine Diag nosis interpretation (observable entity) Other residential (current) 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 Diagnosis inter pretation (observable entity) Ankylosing spondylitis of multiple sites in spine Diag nosis interpretation (observable entity) Ankylosing spondylitis of multiple sites in spine Diag nosis interpretation (observable entity) Ankylosing spondylitis of multiple sites in spine Diag nosis interpretation (observable entity) Ankylosing spondylitis of multiple sites in spine Diag nosis interpretation (observable entity) Other residential (current) 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 Diagnosis inter pretation (observable entity) Ankylosing spondylitis of multiple sites in spine Diag nosis interpretation (observable entity) Other residential (current) 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 Diagnosis inter pretation (observable entity) Ankylosing spondylitis of multiple sites in spine Diag nosis interpretation (observable entity) Other residential (current) 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 Diagnosis inter pretation (observable entity) Ankylosing spondylitis of multiple sites in spine Diag nosis interpretation (observable entity) Ankylosing spondylitis of multiple sites in spine Diag nosis interpretation (observable entity) Ankylosing spondylitis of multiple sites in spine Diag nosis interpretation (observable entity) Ankylosing spondylitis of multiple sites in spine Diag nosis interpretation (observable entity) Other tank terminal gauger (current) 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 Diagnosis inter pretation (observable entity) Ankylosing spondylitis of multiple sites in spine Diag nosis interpretation (observable entity) Ankylosing spondylitis of multiple sites in spine Diag nosis interpretation (observable entity) Ankylosing spondylitis of multiple sites in spine Diag nosis interpretation (observable entity) Other residential (current) 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 Diagnosis inter pretation (observable entity) Lumbago Diagnosis interpretation (observable entity) Ankylosing spondylitis of multiple sites in spine Diag nosis interpretation (observable entity) Encounter for screening for respiratory tuberculosis D iagnosis interpretation (observable entity) Ankylosing spondylitis of multiple sites in spine Diag nosis interpretation (observable entity) Other residential (current) 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 Diagnosis inter pretation (observable entity) Ankylosing spondylitis of multiple sites in spine Diag nosis interpretation (observable entity) Ankylosing spondylitis of multiple sites in spine Diag nosis interpretation (observable entity) Other residential (current) 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 Diagnosis inter pretation (observable entity) Ankylosing spondylitis of multiple sites in spine Diag nosis interpretation (observable entity) Other residential (current) 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 Diagnosis inter pretation (observable entity) Ankylosing spondylitis of multiple sites in spine Diag nosis interpretation (observable entity) Ankylosing spondylitis of multiple sites in spine Diag nosis interpretation (observable entity) Other tank terminal gauger (current) 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 Diagnosis inter pretation (observable entity) Ankylosing spondylitis of multiple sites in spine Diag nosis interpretation (observable entity) Other residential (current) 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 Diagnosis inter pretation (observable entity) Ankylosing spondylitis of multiple sites in spine Diag nosis interpretation (observable entity) Ankylosing spondylitis of multiple sites in spine Diag nosis interpretation (observable entity) Ankylosing spondylitis of multiple sites in spine Diag nosis interpretation (observable entity) Other residential (current) 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 Diagnosis inter pretation (observable entity) Ankylosing spondylitis of multiple sites in spine Diag nosis interpretation (observable entity) Ankylosing spondylitis of multiple sites in spine Diag nosis interpretation (observable entity) Other residential (current) 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 Diagnosis inter pretation (observable entity) Ankylosing spondylitis of multiple sites in spine Diag nosis interpretation (observable entity) Ankylosing spondylitis of multiple sites in spine Diag nosis interpretation (observable entity) Other residential (current) 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 Diagnosis inter pretation (observable entity) Ankylosing spondylitis of multiple sites in spine Diag nosis interpretation (observable entity) Other residential (current) 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 Diagnosis inter pretation (observable entity) Ankylosing spondylitis of multiple sites in spine Diag nosis interpretation (observable entity) Other tank terminal gauger (current) 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 Diagnosis inter pretation (observable entity) Pain in right shoulder Diagnosis interpretation (observable entity) Ankylosing spondylitis of multiple sites in spine Diag nosis interpretation (observable entity) Other residential (current) 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 Diagnosis inter pretation (observable entity) Ankylosing spondylitis of multiple sites in spine Diag nosis interpretation (observable entity) Other residential (current) 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 Diagnosis inter pretation (observable entity) Ankylosing spondylitis of multiple sites in spine Diag nosis interpretation (observable entity) Other tank terminal gauger (current) 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 Diagnosis inter pretation (observable entity) Ankylosing spondylitis of multiple sites in spine Diag nosis interpretation (observable entity) Other tank terminal gauger 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 Diagnosis interpretation (observable e ntity) Ankylosing spondylitis Problem (finding) - Active Mapped from [facility] Chronic Conditions table on 11/13/2014 by the [...] Problem (finding) - Active Procedures Procedure Date ROUTINE VENIPUNCTURE COMPLETE CBC W/AUTO DIFF WBC RBC SED RATE, AUTOMATED C-REACTIVE PROTEIN ASSAY OF CREATININE TRANSFERASE (AST) (SGOT) ALANINE AMINO (ALT) (SGPT) OFFICE/OUTPATIENT VISIT, EST Results Test Name Date and Time Measure Units Reference Range Abnormal Flag St atus Comments Panel Description: CBC Final WBC 11:43:00 7.0 10*3/uL 3.7-10.1 Final RBC 11:43:00 5.81 10*6/uL 4.00-5.90 Final HGB 11:43:00 17.1 g/dL 13.5-18.0 Final HCT 11:43:00 52.7 % 39.0-55.0 Final MCV 11:43:00 90.8 fL 70.0-100.0 Final MCH 11:43:00 29.4 pg 26.0-34.0 Final MCHC 11:43:00 32.4 g/dL 31.0-37.0 Final RDW 11:43:00 12.4 % 10.0-15.0 Final PLATELETS 11:43:00 260 10*3/uL 150-500 Final MPV 11:43:00 6.1 fL 6.0-10.0 Final MARGIE# 11:43:00 4.09 10*3/uL 2.10-8.00 Final LYM# 11:43:00 1.90 10*3/uL 1.00-5.00 Final MONO# 11:43:00 0.58 10*3/uL 0.10-1.00 Final EOS# 11:43:00 0.3 10*3/uL 0.0-0.5 Final BASO# 11:43:00 0.1 10*3/uL 0.0-0.2 Final MARGIE% 11:43:00 58.9 % 50.0-80.0 Final LYM% 11:43:00 27.4 % 25.0-50.0 Final MONO% 11:43:00 8.4 % 2.0-10.0 Final EOS% 11:43:00 4.2 % 0.0-5.0 Final BASO% 11:43:00 1.2 % 0.0-4.0 Final Panel Description: ESR Final ESR 11:43:00 11 mm/Hr 0-20 Final Panel Description: ALT Final ALT 11:43:00 34 U/L 30-65 Final Panel Description: AST Final AST 11:43:00 19 U/L 15-37 Final Panel Description: CREATININE Final CREATININE 11:43:00 1.5 mg/dL 0.9-1.2 H Final eGFR Non- 11:43:00 45.9 mL/min/1.73m Final eGFR 11:43:00 53.1 mL/min/1.73 Final Panel Description: CRP Final CRP 11:43:00 <0.2 mg/dL 0.0-0.5 Final Advance Directives Directive Yes / No Effective Date File Name No Information Encounters Encounter Description Practice Location Reason(s) For Visit Diagnose s Date Provider Providers Copied on Encounter OFFICE/OUTPATIENT VISIT, EST [facility], [address] [place] [address], [id number], [place] tel:[phone] [facility] Ankylosing Spondylitis (chief complaint) Ankylosing sp ondylitis of multiple sites in spineOther residential (current) 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Low back pain Sabrina Mosley. [address] [place], [place], [id number], [place]. tel:[phone] Referring Provider: Alejandro Del Rio DO , [address], [address]. tel:[phone] [facility], [address] [place] [address], [id number], [place] tel:[phone] [facility] Ankylosing spondylitis of multiple sites in spine [facility] i. [address] [place] [address], [id number], [place]. tel:[phone] Referring Provider: Alejandro Del Rio DO, [address], [address]. tel:[phone] [facility], [address] [place] [address], [id number], [place] tel:[phone] [facility] Ankylosing spondylitis of multiple sites in spine Leonie Holcomb. [address] [place], [place], [id number], [place]. tel:[phone] Referring Provider: Alejandro Del Rio DO, [address], [address]. tel:[phone] [facility], [address] [place] [address], [id number], [place] tel:[phone] [facility] Ankylosing spondylitis of multiple sites in spine [facility] i. [address] [place] [address], [id number], [place]. tel:[phone] Referring Provider: Alejandro Del Rio DO, [address], [address]. tel:[phone] [facility], [address] [place] [address], [id number], [place] tel:[phone] [facility] Ankylosing spondylitis of multiple sites in spineOther tank terminal gauger (current) 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 [facility]. [address] [place] [address], [id number], [place]. tel:[phone] Referring Provider: Alejandro Del Rio DO [address], [address]. tel:[phone] [facility], [address] [place] [address], [id number], [place] tel:[phone] [facility] Ankylosing spondylitis of multiple sites in spine [facility] i. [address] [place] [address], [id number], [place]. tel:[phone] Referring Provider: Alejandro Del Rio [address], [address]. tel:[phone] [facility], [address] [place] [address], [id number], [place] tel:[phone] [facility] Ankylosing spondylitis of multiple sites in spine [facility]. [address] [place] [address], [id number], [place]. tel:[phone] Referring Provider: Alejandro Del Rio [address], [address]. tel:[phone] [facility], [address] [place] [address], [id number], [place] tel:[phone] [facility] Ankylosing spondylitis of multiple sites in spine Melany Beltran December. [address] [facility], [address], [place], [address], [place]. tel:[phone] Referring Provider: Alejandro Del Rio [address], [address]. tel:[phone] [facility], [address] [place] [address], [id number], [place] tel:[phone] [facility] Ankylosing spondylitis of multiple sites in spineOther residential (current) 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 Dinesh Orellana. [address] [place] [address], [id number], [place]. tel:[phone] Referring Provider: Alejandro Del Rio DO [address], [address]. tel:[phone] [facility], [address] [place] [address], [id number], [place] tel:[phone] [facility] Ankylosing spondylitis of multiple sites in spine Dinesh Beck i. [address] [place] [address], [id number], [place]. tel:[phone] Referring Provider: Alejandro Del Rio DO[address], [address]. tel:[phone] [facility], [address] [place] [address], [id number], [place] tel:[phone] [facility] Ankylosing spondylitis of multiple sites in spine Dinesh Padillaz i. [address] [place] [address], [id number], [place]. tel:[phone] Referring Provider: Alejandro Del Rio DO[address], [address]. tel:[phone] [facility], [address] [place] [address], [id number], [place] tel:[phone] [facility] Ankylosing spondylitis of multiple sites in spine Dinesh Padillaz i. [address] [place] [address], [id number], [place]. tel:[phone] Referring Provider: Alejandro Carguello [address], [address]. tel:[phone] [facility], [address] [place] [address], [id number], [place] tel:[phone] [facility] Ankylosing spondylitis of multiple sites in spineOther tank terminal gauger (current) 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 Melany BROWN Diana. [address] [facility] [place], [address], [place], [address], [place]. tel:[phone] Referring Provider: Alejandro Del Rio DO[address], [address]. tel:[phone] [facility], [address] [place] [address], [id number], [place] tel:[phone] [facility] Ankylosing spondylitis of multiple sites in spine [facility] [address], [id number], [place]. tel:[phone] Referring Provider: Alejandro Del Rio DO[address], [address]. tel:[phone] [facility], [address] [place] [address], [id number], [place] tel:[phone] [facility] Ankylosing spondylitis of multiple sites in spine No Information R eferring Provider: Alejandro Del Rio DO[address], [address]. tel:[phone] [facility], [address] [place] [address], [id number], [place] tel:[phone] [facility] Ankylosing spondylitis of multiple sites in spine [facility]. [address] [place] [address], [id number], [place]. tel:[phone] Referring Provider: Alejandro Del Rio DO[address], [address]. tel:[phone] [facility], [address] [place] [address], [id number], [place] tel:[phone] [facility] Ankylosing spondylitis of multiple sites in spine [facility] Beck i. [address] [place] [address], [id number], [place]. tel:[phone] Referring Provider: Alejandro Del Rio DO[address], [address]. tel:[phone] [facility], [address] [place] [address], [id number], [place] tel:[phone] [facility] Ankylosing spondylitis of multiple sites in spineOther residential (current) 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Low back pain Melany BROWN Diana. [address] [facility], [address], [place], [address], [place]. tel:[phone] Referring Provider: Alejandro Del Rio DO[address], [address]. tel:[phone] [facility], [address] [place] [address], [id number], [place] tel:[phone] [facility] Ankylosing spondylitis of multiple sites in spine [facility] Beck i. [address] [place] [address], [id number], [place]. tel:[phone] Referring Provider: Alejandro Del Rio DO[address], [address]. tel:[phone] [facility], [address] [place] [address], [id number], [place] tel:[phone] [facility] Ankylosing spondylitis of multiple sites in spine Rukhsana Brown. [address] [place] [address], [id number], [place]. tel:[phone] Referring Provider: Alejandro Del Rio DO[address], [address]. tel:[phone] [facility], [address] [place] [address], [id number], [place] tel:[phone] [facility] Ankylosing spondylitis of multiple sites in spine Leonie Holcomb. [address] [place], [place], [id number], [place]. tel:[phone] Referring Provider: Alejandro Del Rio DO[address], [address]. tel:[phone] [facility], [address] [place] [address], [id number], [place] tel:[phone] [facility] Ankylosing spondylitis of multiple sites in spineOther tank terminal gauger (current) 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 Melany BROWN Diana. [address] [facility], [address], [place], [address], [place]. tel:[phone] Referring Provider: Alejandro Del Rio DO[address], [address]. tel:[phone] [facility], [address] [place] [address], [id number], [place] tel:[phone] [facility] Ankylosing spondylitis of multiple sites in spine Dinesh Solares i. [address] [place] [address], [id number], [place]. tel:[phone] Referring Provider: Alejandro Del Rio DO, [address], [address]. tel:[phone] [facility], [address] [place] [address], [id number], [place] tel:[phone] [facility] Ankylosing spondylitis of multiple sites in spine [facility] Beck i. [address] [place] [address], [id number], [place]. tel:[phone] Referring Provider: Alejandro Del Rio DO[address], [address]. tel:[phone] [facility], [address] [place] [address], [id number], [place] tel:[phone] [facility] Ankylosing spondylitis of multiple sites in spine [facility] i. [address] [place] [address], [id number], [place]. tel:[phone] Referring Provider: Alejandro Del Rio [address], [address]. tel:[phone] [facility], [address] [place] [address], [id number], [place] tel:[phone] [facility] Ankylosing spondylitis of multiple sites in spineOther tank terminal gauger (current) 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 Melany BROWN Diana. [address] [facility], [address], [place], [address], [place]. tel:[phone] Referring Provider: Alejandro Del Rio [address], [address]. tel:[phone] [facility], [address] [place] [address], [id number], [place] tel:[phone] [facility] Ankylosing spondylitis of multiple sites in spine [facility]. [address] [place] [address], [id number], [place]. tel:[phone] Referring Provider: Alejandro Del Rio [address], [address]. tel:[phone] [facility], [address] [place] [address], [id number], [place] tel:[phone] [facility] Ankylosing spondylitis of multiple sites in spine Dinesh Solares i. [address] [place] [address], [id number], [place]. tel:[phone] Referring Provider: Alejandro Del Rio DO[address], [address]. tel:[phone] [facility], [address] [place] [address], [id number], [place] tel:[phone] [facility] Ankylosing spondylitis of multiple sites in spine [facility] i. [address] [place] [address], [id number], [place]. tel:[phone] Referring Provider: Alejandro Del Rio DO[address], [address]. tel:[phone] [facility], [address] [place] [address], [id number], [place] tel:[phone] [facility] Ankylosing spondylitis of multiple sites in spineOther tank terminal gauger (current) 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 Melany BROWN Diana. [address] [facility], [address], [place], [address], [place]. tel:[phone] Referring Provider: Alejandro Del Rio [address], [address]. tel:[phone] [facility], [address] [place] [address], [id number], [place] tel:[phone] [facility] Ankylosing spondylitis of multiple sites in spine [facility] i. [address] [place] [address], [id number], [place]. tel:[phone] Referring Provider: Alejandro Del Rio [address], [address]. tel:[phone] [facility], [address] [place] [address], [id number], [place] tel:[phone] [facility] Ankylosing spondylitis of multiple sites in spine Dinesh Solares iKamila [address] [place] [address], [id number], [place]. tel:[phone] Referring Provider: Alejandro Del Rio [address], [address]. tel:[phone] [facility], [address] [place] [address], [id number], [place] tel:[phone] [facility] Ankylosing spondylitis of multiple sites in spine No Information R eferring Provider: Alejandro Del Rio [address], [address]. tel:[phone] [facility], [address] [place] [address], [id number], [place] tel:[phone] [facility] Ankylosing spondylitis of multiple sites in spineOther tank terminal gauger (current) 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 Melany BROWN Diana. [address] [facility], [address], [place], [address], [place]. tel:[phone] Referring Provider: Alejandro Del Rio [address], [address]. tel:[phone] [facility], [address] [place] [address], [id number], [place] tel:[phone] [facility] Ankylosing spondylitis of multiple sites in spine No Information R eferring Provider: Alejandro Del Rio [address], [address]. tel:[phone] [facility], [address] [place] [address], [id number], [place] tel:[phone] [facility] Ankylosing spondylitis of multiple sites in spine Dinesh Solares i. [address] [place] [address], [id number], [place]. tel:[phone] Referring Provider: Alejandro Del Rio DO[address], [address]. tel:[phone] [facility], [address] [place] [address], [id number], [place] tel:[phone] [facility] Ankylosing spondylitis of multiple sites in spine [facility] Padillaz i. [address] [place] [address], [id number], [place]. tel:[phone] Referring Provider: Alejandro Del Rio DO[address], [address]. tel:[phone] [facility], [address] [place] [address], [id number], [place] tel:[phone] [facility] Ankylosing spondylitis of multiple sites in spineOther tank terminal gauger (current) 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 Melany BROWN Diana. [address] [facility], [address], [place], [address], [place]. tel:[phone] Referring Provider: Alejandro Del Rio [address], [address]. tel:[phone] [facility], [address] [place] [address], [id number], [place] tel:[phone] [facility] Ankylosing spondylitis of multiple sites in spine Rukhsana Brown. [address] [place] [address], [id number], [place]. tel:[phone] Referring Provider: Alejandro Del Rio DO[address], [address]. tel:[phone] [facility], [address] [place] [address], [id number], [place] tel:[phone] [facility] Ankylosing spondylitis of multiple sites in spine Khcoralestuardo Beck i. [address] [place] [address], [id number], [place]. tel:[phone] Referring Provider: Alejandro Del Rio DO, [address], [address]. tel:[phone] [facility], [address] [place] [address], [id number], [place] tel:[phone] [facility] Ankylosing spondylitis of multiple sites in spine Khairsuah Beck i. [address] [place] [address], [id number], [place]. tel:[phone] Referring Provider: Alejandro Del Rio DO, [address], [address]. tel:[phone] [facility], [address] [place] [address], [id number], [place] tel:[phone] [facility] Ankylosing spondylitis of multiple sites in spineOther residential (current) 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 Khcoralestuardo Ramzi. [address] [place] [address], [id number], [place]. tel:[phone] Referring Provider: Alejandro Del Rio DO , [address], [address]. tel:[phone] [facility], [address] [place] [address], [id number], [place] tel:[phone] [facility] Ankylosing spondylitis of multiple sites in spine Alisonestuadro Beck i. [address] [place] [address], [id number], [place]. tel:[phone] Referring Provider: Alejandro Del Rio DO[address], [address]. tel:[phone] [facility], [address] [place] [address], [id number], [place] tel:[phone] [facility] Other residential (current) 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 Alisonestuardo Reyna. [address] [place], [place], [id number], [place]. tel:[phone] [facility], [address] [place] [address], [id number], [place] tel:[phone] [facility] Ankylosing spondylitis of multiple sites in spineOther tank terminal gauger (current) 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 Melany BROWN Diana. [address] [facility], [address], [place], [address], [place]. tel:[phone] Referring Provider: Alejandro Del Rio DO[address], [address]. tel:[phone] [facility], [address] [place] [address], [id number], [place] tel:[phone] [facility] Ankylosing spondylitis of multiple sites in spine No Information R eferring Provider: Alejandro Del Rio [address], [address]. tel:[phone] [facility], [address] [place] [address], [id number], [place] tel:[phone] [facility] Ankylosing spondylitis of multiple sites in spine Alisonestuardo Beck i. [address] [place] [address], [id number], [place]. tel:[phone] Referring Provider: Alejandro Del Rio DO, [address], [address]. tel:[phone] [facility], [address] [place] [address], [id number], [place] tel:[phone] [facility] Ankylosing spondylitis of multiple sites in spine Khalyssa Padillaz i. [address] [place] [address], [id number], [place]. tel:[phone] Referring Provider: Alejandro Del Rio DO, [address], [address]. tel:[phone] [facility], [address] [place] [address], [id number], [place] tel:[phone] [facility] Ankylosing spondylitis of multiple sites in spineOther tank terminal gauger (current) 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 Dinesh Ramzi. [address] [place] [address], [id number], [place]. tel:[phone] Referring Provider: Alejandro Del Rio DO , [address], [address]. tel:[phone] [facility], [address] [place] [address], [id number], [place] tel:[phone] [facility] Ankylosing spondylitis of multiple sites in spine Khalyssa Padillaz i. [address] [place] [address], [id number], [place]. tel:[phone] Referring Provider: Alejandro Del Rio DO, [address], [address]. tel:[phone] [facility], [address] [place] [address], [id number], [place] tel:[phone] [facility] Ankylosing spondylitis of multiple sites in spine Dinesh Solares i. [address] [place] [address], [id number], [place]. tel:[phone] Referring Provider: Alejandro Del Rio [address], [address]. tel:[phone] [facility], [address] [place] [address], [id number], [place] tel:[phone] [facility] Ankylosing spondylitis of multiple sites in spineOther residential (current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 Harry Pozo. [address] [place] [address], [id number], [place]. tel:[phone] Referring Provider: Alejandro Del Rio [address], [address]. tel:[phone] [facility], [address] [place] [address], [id number], [place] tel:[phone] [facility] Ankylosing spondylitis of multiple sites in spine Jakesuestuardo Padillaz i. [address] [place] [address], [id number], [place]. tel:[phone] Referring Provider: Alejandro Del Rio [address], [address]. tel:[phone] [facility], [address] [place] [address], [id number], [place] tel:[phone] [facility] Encounter for screening for respiratory tuberculosis No Information [facility], [address] [place] [address], [id number], [place] tel:[phone] [facility] Ankylosing spondylitis of multiple sites in spineOther tank terminal gauger (current) 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 Rome Simon. [address] [place] [address], [id number], [place]. tel:[phone] Referring Provider: Alejandro Del Rio DO [address], [address]. tel:[phone] [facility], [address] [place] [address], [id number], [place] tel:[phone] [facility] Ankylosing spondylitis of multiple sites in spine alyssa Solares i. [address] [place] [address], [id number], [place]. tel:[phone] Referring Provider: Alejandro Del Rio DO, [address], [address]. tel:[phone] [facility], [address] [place] [address], [id number], [place] tel:[phone] [facility] Ankylosing spondylitis of multiple sites in spineOther tank terminal gauger (current) 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 No Information Referring Provider: Alejandro Del Rio [address], [address]. tel:[phone] [facility], [address] [place] [address], [id number], [place] tel:[phone] [facility] Ankylosing spondylitis of multiple sites in spineOther tank terminal gauger (current) 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 Kiya Burkett. [address] [place] [address], [id number], [place]. tel:[phone] Referring Provider: Alejandro Del Rio [address], [address]. tel:[phone] [facility], [address] [place] [address], [id number], [place] tel:[phone] [facility] Ankylosing spondylitis of multiple sites in spine Dinesh Solares i. [address] [place] [address], [id number], [place]. tel:[phone] Referring Provider: Alejandro Del Rio DO[address], [address]. tel:[phone] [facility], [address] [place] [address], [id number], [place] tel:[phone] [facility] Ankylosing spondylitis of multiple sites in spineOther tank terminal gauger (current) 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 [facility] Kusum. [address] [place] [address], [id number], [place]. tel:[phone] Referring Provider: Alejandro Del Rio DO [address], [address]. tel:[phone] [facility], [address] [place] [address], [id number], [place] tel:[phone] [facility] Ankylosing spondylitis of multiple sites in spine Khairallah Beck i. [address] [place] [address], [id number], [place]. tel:[phone] Referring Provider: Alejandro Del Rio DO[address], [address]. tel:[phone] [facility], [address] [place] [address], [id number], [place] tel:[phone] [facility] Other tank terminal gauger (current) 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Ankylosing spondylitis of multiple sites in spine Khairsuah Ramzi. [address] [place] [address], [id number], [place]. tel:[phone] Referring Provider: Alejandro Del Rio DO , [address], [address]. tel:[phone] [facility], [address] [place] [address], [id number], [place] tel:[phone] [facility] Ankylosing spondylitis of multiple sites in spine [facility] Beck i. [address] [place] [address], [id number], [place]. tel:[phone] Referring Provider: Alejandro Del Rio DO, [address], [address]. tel:[phone] [facility], [address] [place] [address], [id number], [place] tel:[phone] [facility] Ankylosing spondylitis of multiple sites in spineOther residential (current) 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 Veena Noe. [address] [place] [address], [id number], [place]. tel:[phone] Referring Provider: Alejandro Del Rio [address], [address]. tel:[phone] [facility], [address] [place] [address], [id number], [place] tel:[phone] [facility] Ankylosing spondylitis of multiple sites in spine [facility] Padillaz i. [address] [place] [address], [id number], [place]. tel:[phone] Referring Provider: Alejandro Del Rio [address], [address]. tel:[phone] [facility], [address] [place] [address], [id number], [place] tel:[phone] [facility] Ankylosing spondylitis of multiple sites in spineOther residential (current) 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 Harry Pozo. [address] [place] [address], [id number], [place]. tel:[phone] Referring Provider: Alejandro Del Rio DO , [address], [address]. tel:[phone] [facility], [address] [place] [address], [id number], [place] tel:[phone] [facility] Ankylosing spondylitis of multiple sites in spine Dinesh Solares i. [address] [place] [address], [id number], [place]. tel:[phone] Referring Provider: Alejandro Del Rio DO[address], [address]. tel:[phone] [facility], [address] [place] [address], [id number], [place] tel:[phone] [facility] Ankylosing spondylitis of multiple sites in spineOther residential (current) 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 Harry Pozo. [address] [place] [address], [id number], [place]. tel:[phone] Referring Provider: Alejandro Del Rio DO [address], [address]. tel:[phone] [facility], [address] [place] [address], [id number], [place] tel:[phone] [facility] Ankylosing spondylitis of multiple sites in spineOther tank terminal gauger (current) 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 Harry Pozo. [address] [place] [address], [id number], [place]. tel:[phone] Referring Provider: Alejandro Del Rio [address], [address]. tel:[phone] [facility], [address] [place] [address], [id number], [place] tel:[phone] [facility] Ankylosing spondylitis of multiple sites in spineOther tank terminal gauger (current) 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Pain in right shoulder Kiya Burkett. [address] [place], [place], [id number], [place]. tel:[phone] Referring Provider: Alejandro Del Rio [address], [address]. tel:[phone] [facility], [address] [place] [address], [id number], [place] tel:[phone] [facility] Ankylosing spondylitis of multiple sites in spineOther residential (current) 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 Renea Darby. [address], [place], [id number], [place]. tel:[phone] Referring Provider: Alejandro Del Rio [address], [address]. tel:[phone] [facility], [address] [place] [address], [id number], [place] tel:[phone] [facility] Ankylosing spondylitis of multiple sites in spineOther tank terminal gauger (current) 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 Renea Darby. [address], [place], [id number], [place]. tel:[phone] Referring Provider: Alejandro Del Rio [address], [address]. tel:[phone] [facility], [address] [place] [address], [id number], [place] tel:[phone] [facility] Ankylosing spondylitis of multiple sites in spineOther tank terminal gauger (current) 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 Harry Pozo. [address], [place], [id number], [place]. tel:[phone] Referring Provider: Alejandro Del Rio [address], [address]. tel:[phone] [facility], [address] [place] [address], [id number], tel:[phone] [facility] Ankylosing spondylitis of multiple sites in spineOther tank terminal gauger 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 No Information Referring Provider: Alejandro Del Rio DO [address], [address]. [phone] [facility], [address] [place] [address], [id number], [place] tel:[phone] [facility] No Information Dinesh Orellana. [address] [place] [address], [id number], [place]. tel:[phone] Referring Provider: Alejandro Del Rio DO [address], [address]. tel:[phone] [facility], [address] [place] [address], [id number], [place] tel:[phone] [facility] No Information Dinesh Orellana. [address] [place] [address], [id number], [place]. tel:[phone] Referring Provider: Alejandro Del Rio DO [address], [address]. tel:[phone] Family History Family Member Type Diagnosis Age At Onset Problem (finding) Family history of High Blood P reasure Problem (finding) Family history of Arthritis Immunizations Vaccine Date Status Comments Historical Influenza Vaccine administered Not e: APPROX ; Source: Other Provider Influenza, injectable, MDCK, preservativ e free, 0.5 mL dosage, Flucelvax Quad administered Source: New Immuniza tion Record Influenza, injectable, MDCK, Flucelvax Quad [id number] 18 administered Note: per patient ; Source: Certificate Influenza, injectable, quadrivalent, spl it virus, 18 years or older Afluria Quad administered Note: Invalid docume nted admin date was . ; Source: Other Provider Influenza, injectable, trivalent, split virus, 4 years and older, Fluvirin administered Note: approx ; Sourc e: Other Provider Influenza, split virus, injectable, 3 years and older Fluvirin [id number] administered Note: approx ; Source: Other Provider Never had Zoster administered Source: New Imm unization Record Influenza virus vaccine, Injection administered Source: Other Provider Pneumococcal polysaccharide PPV23 administered Note: Approx.Invalid documented admin date was . ; Source: Other Provider pneumo (2 yrs or older) (PPV23) administered Source: Other Provider Payers Payer name Insurance type Covered green party ID Authorization(s ) Medicare MB [id number] [place] [id number] Medicare MB [id number] [place] [id number] Social History Type Description Quantity Date Captured Comments Alcohol Use Details all types 3 drinks occasion Caffeine Use Details coffee and soda 5 cups per day Tobacco Use Status Ex-cigarette smoker Smoking Status Former smoker Smoking Tobacco Use Details Cigarette: Age Stopped: 20 Cigarette: No Details Available Sex Male Vital Signs Date / Time: Height Weight BMI Pulse Rate Blood Pressure Temperatu re Respiratory Rate Body Surface Area Head Circumference BMI percentile Pulse Ox In haled Ox 10:52 AM 71.00 in 296.00 lbs 41.28 kg/meter(2) 130/6 8 mm[Hg] Chief Complaint And Reason For Visit From encounter dated '09/03/2020 11:00'. Ankylosing Spondylitis (chief complaint). Description: At this visit, patient de nies having any significant pain or swelling in the joints. The pain severity is 4/10. Patient is experiencing generalized morning stiffness for 1 Hour and ora l ulcers (mouth sores). Patient denies having abdominal pain, hair loss, diarrh ea, infection, fever, headache and rash and shortness of breath. Reason For Referral Reason For Referral No Information Plan Of Treatment Date Type Action Status Referral Referred To: LINDA POSADA [address] [facility], [address] [place], [phone] Ordered: Referrals: Orthopedic Surgery. LINDA POSADA. Consult Appointment date/timeframe: 01/13/2016 ordered Referral Ordered: *SHOULDER X-RAY, COMPLETE, 2 VIEW ordered Referral Ordered: *SPINE X-RAY, ANTEROPOSTERIOR/LATERAL ordered Referral Ordered: *SACROILIAC JOINTS X-RAY, MORE THAN 3 VIEWS ordered Referral Ordered: *HAND X-RAY, 2 VIEWS Right ordered Referral Ordered: *HAND X-RAY, 2 VIEWS Left ordered History Of Present Illness Encounter Date Complaint History Of Present I llness Ankylosing Spondylitis At this visit, rasheed serra denies having any significant pain or swelling in the joints. The pain severity is 4/10. Patient is experiencing generalized morning stiffness for 1 Hour and oral ulcers (mouth sores). Patient denies having abdominal pain, hair loss, diarrhea, infection, fever, headache and rash and shortness of breath. Functional Status Date Functional Assessment No Information Medications Administered Medication Instructions Dosage Effective Dates (start - stop) Sta tus Comments No Information Instructions Date Instruction Additional Informati on Risks/benefits of medications reviewed Discussed importance of hold ing DMARDs/ biologics if patient develops an infection and to notify the treating physician Labs ordered to check disease activity. Labs ordered to check blood counts, liver and kidney functions to monitor safety of medication. Discussed / Reviewed Labs Reviewed importance of compl iance/adherence to medications [...] safety of medication. Discussed / Reviewed Labs Patient plan printed and given along wit h recommendations call if symptoms worsen maintain adequate water intake every day Reviewed importance of compl iance/adherence to medications prescribed Avoid live vaccines Exercise more Discussed importance of hold ing DMARDs/ biologics if patient develops an infection and to notify the treating physician Stretching Risks/benefits of medications reviewed Labs ordered to check disease activity. Labs ordered to check blood counts, liver and kidney functions to monitor safety of medication. Discussed / Reviewed Labs hold medication and call if any side eff ect develops call if symptoms worsen Risks/benefits of medications reviewed Diagnostic studies discussed/reviewed: [...] live vaccines Physical Examination Exam Findings Details Head/Face Normal Skull - Normal. Hair and scalp - Normal. Eyes Normal Conjunctiva - Right: Normal, Left: Normal. Nose/Mouth/Throat Normal External nose - Norm al. Neck Exam Normal Inspection - Normal. Lymph Detail Normal No cervical or supra clavicular adenopathy Respiratory Normal Inspection - Normal. Auscultation - Normal. Extremity Normal No edema. Abdomen Normal Inspection - Normal. No abdominal tenderness. No hepatic enlargement. No palpable mass. Cardiovascular Normal Heart rate - Regular rate. Rhythm - Regular. Murmurs - None.
--- OUTSIDE RECORDS SUMMARY | 2020-09-26 06:36 | CCD | Continuity of Care Document ---
Author Author Medardo NICOLE Organization Unknown Address [address], [address] [place] [address] Phone [phone] Care Team Providers Care Manager Health Name Role Phone Alejandro Del Rio D.O. AUTM [phone] Dalton Arita AUTM [phone] AUTM Unavailable Juan Manuel Segal M.D. AUTM [phone] [facility] AUTM [phone] Problems Active Problems Provider Date Type 2 [...] CPT Code Status Date Vaccine Lot # 46232 Given 06/19/2016 Influenza Virus Split 3 Yrs And Above For Intramuscular Use 78795 Given 07/03/2015 Influenza Virus Split 3 Yrs And Above For Intramuscular Use Q2036 Given 06/15/2012 Influenza Vaccine 3 Years Of Age Or Older (Flulaval) Q2036 Given 07/15/2011 Influenza Vaccine 3 Years Of Age Or Older (Flulaval) 62255 Given 06/14/2008 Influenza Vaccine Vital Signs Date Vital Result Comment 09/17/2020 8:29am Weight 249.00 lb Weight 112.946 kg 08/22/2020 9:43am Height 70 inches 5'10" Weight 245.00 lb BMI (Body Mass Index) 35.1 kg/m2 [place] Body Weight 166 lb Weight 111.132 kg BSA (Body Surface Area) 2.28 m2 Results Test Acquired Date Facility Test Result H/L Range Note BUN & Creatinine ([facility]) 08/27/2020 [facility] Main Lab [address] [place], [place] [id number] [phone] Blood Urea Nitrogen 23 mg/dL High 7-18 Creatinine With GFR 08/27/2020 [facility] Main Lab [address] [place], [place] [id number] [phone] Creatinine For GFR 1.57 mg/dL High 0.70-1.30 Glomerular Filtration Rate 46.5 Normal >42 1 Laboratory test finding 08/15/2020 [facility] Main Lab [address] [place], [place] [id number] [phone] Pathology Request For Service (SEE NOTE) 2 Laboratory test finding 08/15/2020 [facility] Main Lab [address] [place] [address] [phone] Bedside Glucose 152 mg/dL High 83-110 1 Units are mL/min/1.73 m2 Chronic Kidney Disease Staging per NKF: Stage I & II GFR >=60 Normal to Mildly Decreased Stage III GFR 30-59 Moderately Decreased Stage IV GFR 15-29 Severely Decreased Stage V GFR <15 Very Little GFR Left ESRD GFR <15 on SLEEPING BAG FILLER 2 FINAL DIAGNOSIS A-Left lateral oral tongue, [...] 1310 Procedures Date Code Description Status 08/15/2020 18454 Biopsy Tongue Anterior Two-Third s Completed 07/17/2020 65829 Remove Impacted Cerumen Complete d Medical Devices Description No Information Available Encounters Type Date Location Provider Dx Diagnosis Office Visit 08/22/2020 9:30a 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 Pulmonary/Thoracic Lawrenc essie Carpenter MD G47.33 Obstructive sleep apnea (adult) (pediatr ic) Office Visit 07/17/2020 10:15a 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 E[facility] * 08/13/2021 9:45 am - Audie Carpenter MD at [facility] Pulmonary/Thoracic 09/17/2020 - Raji Nicole II, JULIOCESAR-Ruby* C02.9 Malignant neoplasm of tongue, unspecified* Comments:* MRI reviewed.[facility]On recommend surgwill reutrn fo rreview w dr fields to dischss * Follow up:* w Dr Fields * H61.22 Impacted cerumen, left ear * H60.8x2 Other otitis externa, left ear* New Medication:* Ofloxacin (Otic) 0.3 % - 5 drops to left ear twice a day x 7 days Functional Status Functional Condition Comment Date Status C-Pap Active Mental Status Description No Information Available Referrals Description No Information Available
--- OUTSIDE RECORDS SUMMARY | 2020-09-26 06:37 | CCD ---
Full Chart - [facility] Created on: 08/05/2020 Medardo Simeon External Reference #: [id number] : 1950 Sex: Male Author Author [employer] Organization [facility] Address [address] [place] [address] Phone Care Team Providers Care Human Projectile Name Role Phone [facility] Unavailable [phone] Alejandro Del Rio DO PP [phone] Alejandro Del Rio DO Unavailable [phone] Nba Fields MD Unavailable [phone] [facility] Unavailable [phone] Wilfredo Monzon MD Unavailable [phone] Reason for Referral No Reason for Referral Recorded Problems Includes: Active, inactive, and resolved Problems All Visits Effective Date(s) Provider Condition Stat us Fatty Liver 09/26/2019 Magy Mcknight RN Active Lung Neoplasm Uncertain Behavior 09/18/2019 Alejandro lr DO Active Note: [address] 2019 consider repeat in 1 year Ankylosing Spondylitis 08/09/2014 Alejandro Del Rio DO Ac tive Gerd 01/16/2014 Alejandro Del Rio DO Active Nontoxic Solitary Thyroid Nodule 07/14/2011 Alejandro lr DO Active Note: 3.9 cm on thyroid sono gram. Has seen surgeon in the past. Has had biopsy in the past. Renal Insufficiency Chronic 01/06/2011 Alejandro Del Rio DO Active Note: GFR back in 01/10 was 5 5 current GFR in 2010. Is also 55. Vitamin D Deficiency 01/06/2011 Alejandro Del Rio DO Acti ve Colonic Diverticulosis 10/07/2010 Alejandro Del Rio DO Ac tive Note: seen on 03/25/09 ruben Monzon- repeat due 2019 Hemorrhoids 10/07/2010 Alejandro Del Rio DO Active Note: seen on 03/25/[address] 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 5 PACK YEARS AND AND FATHER HAD SMOKED IN HOUSE - WORK TOO AT [employer].pt followed by [facility]- will be seen again in one year, no changes. Diverticulitis of Colon 02/21/2008 - 02/21/2008 Resolved Note: Unchanged Lung Neoplasm 02/21/2008 Alejandro Del Rio DO Inactive Note: Unchanged - LUNG NODUL E SEEN ON CT ABD- NEED CT CHEST WITH CONTRAST TO EDWAR. TERRA. 2 SMALL LUNG NODULES ON 07/14 CT CHEST - NEEDS RECHECK IN 6 MONTHS.- seen by angelika Carpenter repeat CT07/29/10 " stable over 2 years =BENIGN" Routine General Medical Examination At [facility] [place] 02/21/2008 Alejandro Del Rio DO Inactive Note: SEE 06/12 EMR PE.- SE ES VA PROVIDER TOO- MEDS AND LABS FREE Allergic Rhinitis 07/01/2007 Alejandro Del Rio DO Active Note: Unchanged - Nasal ster oid added by pulmonary and has been helping Cervical Radiculopathy 07/01/2007 Alejandro Del Rio DO Ac tive Note: Unchanged - c6-7 on ne rve conduction study 9.15.08- 08/12/05 MRI. 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 He feels considerable joint pain in his low back. His knees his elbows. He is using naproxen or Tylenol for pain relief. Today he was given written information telling him to avoid naproxen and ibuprofen, and all nonsteroidals for that matter with his mild chronic renal insufficiency Diabetes Mellitus Type 2 07/01/1990 Alejandro Del Rio DO Active Note: Stable Plan of Treatment Referrals To Diagnosis GI Routine General Medi jose Examination At a Health Care Facilit Note: Please call Dr. Monzon's office in [place] and see when the nextdate for planned colonoscopy is. Pain Management Osteoarthrosis Gener alized Involving Unspecified Site Note: Please set up patient with pain maria elena quarles per [facility] for ongoing joint pain and muscle aches (osteoarthritis) see office note from 01/16/14 and labs from 01/17/14. Patient would like to go to [place]. thank you. EMERITA Yip Rheumatology Note: Please schedule patient with provi shaw- can you please schedule pt with provider in [place] ENT EARACHE REFERRED Note: Please schedule patient with [facility]. Phone number [phone]. Thank you! GI Wilfredo Monzon MD Nausea Note: Nausea with weight loss- eval with EGD +- colonoscopy 12# weight loss in 6 mo - ? gastroparesis with long HX DM Cardiology Abnormal electrocard iogram [ECG] [EKG] Note: DX as listed preop - surgery plann ed 08/15 Future Tests Order Diagnosis Results Due Ordering Provid er Records ENT Leukoplakia of oral mucosa, including ton fan 08/05/20 Pema Enamorado [employer] WORK[employer] Records Other Type 2 diabetes mellitus w diabe tic chronic kidney disease 08/05/20 Alejandro Del Rio DO Follow-up Appt - Follow-up AHR in 3 months Essential (primary) hypertension 08/05/20 Pema Enamorado [employer] WORK[employer] Visit Summary - Standard Visit Visit Summary Standard Visi t Leukoplakia of oral mucosa, including tongue 08/05/20 Pema Enamorado NP Lab (CBC)COMPLETE BLOOD CNT 08/09/20 Gertruder derickk Crystal Del Rio DO Lab COMPREHENSIVE METABOLIC PANEL 08/09/20 Alejandro Del Rio DO Lab LIPID PANEL 08/09/20 Alejandro lr DO Lab MICROALBUMIN RANDOM 08/09/20 Alejandro Del Rio DO Lab TSH 08/09/20 Alejandro lr DO Findings Encounter Date Instructions for patient Pre Op with Alejandro Del Rio DO 08/05/2020 Ordered follow-up visit Pre Op with Alejandro Del Rio DO 1 10/05/2019 Ordered return to the clinic if condition worsens or n ew symptoms arise Pre Op with Alejandro Del Rio DO 08/05/2020 Instructions for patient Hospital Follow-up with Alejandro maddox DO 09/18/2019 Ordered Clinical summary transmitted to referring provider electronically with reasonable certainty of receipt or receiving provider electronically through [facility] Follow-up with Alejandro Del Rio DO 09/18/2019 Ordered follow-up visit Hospital Follow-up with Alejandro pan DO 09/18/2019 Ordered return to the clinic if condition worsens or n ew symptoms arise Hospital Follow-up with Alejandro Del Rio DO 09/18/2019 Ordered Clinical summary transmitted to referring provider electronically or receiving provider electronically through [employer] [facility] AHR with Alejandro Del Rio DO 02/28/2019 Ordered follow-up visit AHR with Alejandro Del Rio DO 02/05 Ordered return to the clinic if condition worsens or n ew symptoms arise AHR with Alejandro Del Rio DO 02/28/2019 Instructions for patient Medication Follow-up with Alejandro Del Rio DO 09/20/2018 Ordered Clinical summary transmitted to referring provider electronically or receiving provider [facility] Medication Follow-up with Alejandro Del Rio DO 09/20/2018 Ordered follow-up visit Medication Follow-up with Alejandro Del Rio DO 09/20/2018 Ordered return to the clinic if condition worsens or n ew symptoms arise Medication Follow-up with Alejandro Del Rio DO 09/20/2018 Instructions for patient Diabetes Follow-up with Alejandro maddox DO 02/17/2016 Ordered return to the clinic if condition worsens or n ew symptoms arise Diabetes Follow-up with Alejandro Del Rio DO 02/17/2016 Ordered follow-up visit Diabetes Follow-up with Alejandro pan DO 06/03/2015 Ordered return to the clinic if condition worsens or n ew symptoms arise Diabetes Follow-up with Alejandro Del Rio DO 06/03/2015 Ordered follow-up visit Diabetes Follow-up with Alejandro pan DO 01/24/2015 Ordered return to the clinic if condition worsens or n ew symptoms arise Diabetes Follow-up with Alejandro Del Rio DO 01/24/2015 Ordered follow-up visit AHR with Alejandro Del Rio DO 09/06 Ordered return to the clinic if condition worsens or n ew symptoms arise AHR with Alejandro Del Rio DO 09/20/2014 Ordered follow-up visit Same Day Acute with Alejandro ramos DO 08/28/2014 Ordered return to the clinic if condition worsens or n ew symptoms arise Same Day Acute with Alejandro Del Rio DO 08/28/2014 Return to the clinic if condition worsens or new sympt oms arise Patient Education with Heather Patricia NP 08/09/2014 Ordered follow-up visit Diabetes Follow-up with Alejandro pan DO 01/16/2014 Ordered return to the clinic if condition worsens or n ew symptoms arise Diabetes Follow-up with Alejandro Del Rio DO 01/16/2014 Ordered follow-up visit Diabetes Follow-up with Alejandro pan DO 09/18/2013 Ordered return to the clinic if condition worsens or n ew symptoms arise Diabetes Follow-up with Alejandro Del Rio DO 09/18/2013 Ordered follow-up visit AHR with Alejandro Del Rio DO 01/2013 Ordered return to the clinic if condition worsens or n ew symptoms arise AHR with Alejandro Del Rio DO 05/11/2013 Ordered follow-up visit Diabetes Follow-up with Alejandro pan DO 01/03/2013 Ordered return to the clinic if condition worsens or n ew symptoms arise Diabetes Follow-up with Alejandro Del Rio DO 01/03/2013 Ordered follow-up visit M 20 Minutes with Alejandro villegas DO 08/04/2012 Ordered return to the clinic if condition worsens or n ew symptoms arise M 20 Minutes with Alejandro Del Rio DO 08/04/2012 Ordered follow-up visit AHR with Alejandro Del Rio DO 01/04 Ordered return to the clinic if condition worsens or n ew symptoms arise AHR with Alejandro Del Rio DO 01/18/2012 Ordered follow-up visit M 20 Minutes with Alejandro villegas DO 07/14/2011 Ordered return to the clinic if condition worsens or n ew symptoms arise M 20 Minutes with Alejandro Del Rio DO 07/14/2011 Ordered follow-up visit M 20 Minutes with Alejandro villegas DO 01/06/2011 Ordered return to the clinic if condition worsens or n ew symptoms arise M 20 Minutes with Alejandro Del Rio DO 01/06/2011 Ordered follow-up visit 30 minutes with Alejandro Del Rio DO 10/07/2010 Ordered return to the clinic if condition worsens or n ew symptoms arise 30 minutes with Alejandro Del Rio DO 10/07/2010 Ordered follow-up visit as scheduled with PCP 30 boris brittany with Magy Barrera NP 08/21/2009 Assessments Includes: Assessments for all patient encounters Findings Encounter Date Abnormal electrocardiogram Pre Op with Alejandro Villegas 08/05/2020 Essential hypertension Pre Op with Alejandro Del Rio DO GERD Pre Op with Alejandro Del Rio DO 08/05 Hyperlipidemia Pre Op with Alejandro Del Rio DO 08/05 Nonorganic sleep apnea Pre Op with Alejandro Del Rio DO Oral leukoplakia Pending cardiology steve bernstein, his chronic conditions are optimized, and is of acceptable risk for this procedure Pre Op with Alejandro Del Rio DO 08/05/2020 Type 2 diabetes mellitus holding all DM meds on AM of procedure and 1/2 baseal dose PM prior Pre Op with Alejandro Del Rio DO 08/05/2020 Actinic keratosis Hospital Follow-up with Alejandro ramos DO 09/18/2019 Bulging lumbar disc Hospital Follow-up with Alejandro ramos DO 09/18/2019 Essential hypertension Hospital Follow-up with Alejandro tay DO 09/18/2019 Hyperlipidemia Hospital Follow-up with Alejandro ramos DO 09/18/2019 Long-term use of insulin Hospital Follow-up with Alejandro maddox DO 09/18/2019 Nausea Hospital Follow-up with Alejandro ramos DO 09/18/2019 Nonorganic sleep apnea Hospital Follow-up with Alejandro tay DO 09/18/2019 Type 2 diabetes mellitus Hospital Follow-up with Alejandro maddox DO 09/18/2019 Routine history and physical AHR with Alejandro Del Rio DO 02/28/2019 Actinic keratosis Medication Follow-up with Alejandro sigala DO 09/20/2018 Bulging lumbar disc Medication Follow-up with Alejandro sigala DO 09/20/2018 Essential hypertension Medication Follow-up with Alejandro maddox DO 09/20/2018 Hyperlipidemia Medication Follow-up with Alejandro sigala DO 09/20/2018 Long-term use of insulin Medication Follow-up with Alejandro Del Rio DO 09/20/2018 Nonorganic sleep apnea Medication Follow-up with Alejandro maddox DO 09/20/2018 Type 2 diabetes mellitus Medication Follow-up with Alejandro Del Rio DO 09/20/2018 Essential hypertension well controlled Diabetes Follo w-up with Alejandro Del Rio DO 02/17/2016 Hyperlipidemia Labs from [place] , February 10 016 reviewed Currently, his control is acceptable on high-intensity statin. He is clearly a candidate for high- intensity statin as he is a diabetic who has greater than 10% 10 year risk. Was previously on simvastatin and intolerant to Lipitor Diabetes Follow-up with Alejandro Del Rio DO 02/17/2016 Long-term use of insulin Diabetes Follow-up with Alejandro maddox DO 02/17/2016 Nonorganic sleep apnea Diabetes Follow-up with Alejandro tay DO 02/17/2016 Type 2 diabetes mellitus can check pre meal glucose for biggest meal and 2 hours after - if > 40 point rise , may need more mealtime insulin - try for 3 days in a row and go up as needed Diabetes Follow-up with Alejandro ramos DO 02/17/2016 Essential hypertension well controlled Chronic Diseas e Follow-up with Alejandro Del Rio DO 10/04/2015 Hyperlipidemia Chronic Disease Follow-up with Alejandro Del Rio DO 10/04/2015 Nonorganic sleep apnea Pulmonary consultation dated 1 10/16/14 reviewed Chronic Disease Follow-up with Alejandro Del Rio DO 10/04/2015 Type 2 diabetes mellitus can check pre meal glucose for biggest meal and 2 hours after - if > 40 point rise , may need more mealtime insulin - try for 3 days in a row and go up as needed Chronic Disease Follow-up with Alejandro Del Rio DO 10/04/2015 Cervical radiculopathy per pain clinic Diabetes Follo w-up with Alejandro Del Rio DO 06/03/2015 Essential hypertension well controlled Diabetes Follo w-up with Alejandro Del Rio DO 06/03/2015 Hyperlipidemia LDL cholesterol of 78 on 08/2014 Diabe brittany Follow-up with Alejandro Del Rio DO 06/03/2015 Type 2 diabetes mellitus can check pre meal glucose for biggest meal and 2 hours after - if > 40 point rise , may need more mealtime insulin - try for 3 days in a row and go up as needed Diabetes Follow-up with Alejandro ramos DO 06/03/2015 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 Diabetes Follow-up with Alejandro Del Rio DO 01/24/2015 Cervical radiculopathy per pain clinic Diabetes Follo w-up with Alejandro Del Rio DO 01/24/2015 Essential hypertension well controlled Diabetes Follo w-up with Alejandro Del Rio DO 01/24/2015 Hyperlipidemia LDL cholesterol of 78 on 08/2014 Diabe brittany Follow-up with Alejandro Del Rio DO 01/24/2015 Type 2 diabetes mellitus with 80 units of labtus- plan to try to get AM BS around 130 - if 3 day average is above 130 can increase lantus that night by 2 units - repeat process every 3-4 days Diabetes Follow-up with Alejandro Del Rio DO 01/24/2015 Headache syndromes May be related to re micaid therapy - could stop it but sounds like it is helping pain- call if progressing or not responding to tylenol AHR with Alejandro Del Rio DO 09/20/2014 Normal routine history and physical see updated problem list above for impression and plan of any problems addressed today. Vaccine records reviewed. Shingles vaccine is not recommended if you are on Remicade or medications that we can your immune system. Otherwise up-to-date. Cancer screening discussed. Colonoscopy 03/25/[address] Monzon repeat is recommended for 2019. There are no routine prostate cancer screening recommendations from the [place] preventative task for service. Labs from 08/17/14 reviewed. 3 month average glucose of 9.7 on that panel. LDL cholesterol 78. Kidney function and liver function normal. Urine protein test negative. can check BS 3 hours after meal and novolog and if seeing glucose rise of more than 40 points from before to after meal - may need more mealtime dose - ie add 1 unit AHR with Alejandro Del Rio DO 09/20/2014 Ankylosing spondylitis Same Day Acute with Alejandro jim DO 08/28/2014 Constipation FIBER will help - add fibe r tabs daily and fruit and veggies with each meal - can add RX for miralax also Blood work discussed. 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 Last A1c was 7.9 and current is 8.1 9 page lab report from 08/17/13 reviewed plan to INCREASE lantus form 60 to 62 units per day can check BS BEFORE meal and if rather high could give an additional unit or 2 along with the standard 5 units Diabetes Follow-up with Alejandro Del Rio DO 05/21/2014 Cervical radiculopathy Diabetes Follow-up with Alejandro tay DO 01/16/2014 Essential hypertension well controlled Diabetes Follo w-up with Alejandro Del Rio DO 01/16/2014 Generalized osteoarthritis can get refe rral to rheum if labs abnormal and pain management if labs normal We are limited for treatment medications/options for his osteoarthritis. His diabetes and renal impairment prevents us from using nonsteroidal anti-inflammatories that would be beneficial for his arthritic symptoms Diabetes Follow-up with Alejandro Del Rio DO 014 Organic impotence Erectile dysfunction is likely a result of and/or exacerbated by his diabetes and complications thereof Diabetes Follow-up with Alejandro Del Rio DO 01/16/2014 Type 2 diabetes mellitus acceptble control Diabetes F ollow-up with Alejandro Del Rio DO 01/16/2014 Arthritis of hand can do blood work if not responding Diabetes Follow-up with Alejandro Del Rio DO 09/18/2013 Cervical radiculopathy Home exercise discussed can re cheli for therapy if needed Diabetes Follow-up with Alejandro Del Rio DO 09/18/2013 Essential hypertension well controlled Diabetes Follo w-up with Alejandro Del Rio DO 09/18/2013 Type 2 diabetes mellitus acceptble control Diabetes F ollow-up with Alejandro Del Rio DO 09/18/2013 Chronic renal insufficiency AHR with Alejandro Del Rio DO 05/11/2013 Essential hypertension AHR with Alejandro Del Rio DO 05/11 Normal routine history and physical s ee updated problem list above for impression and plan of any problems addressed today. AHR with Alejandro Del Roi DO 05/11/2013 Type 2 diabetes mellitus -can cut lantu s from 60 to 58 due to morning values <70 AHR with Alejandro Del Rio DO 05/11/2013 Essential hypertension well controlled Diabetes Follo w-up with Alejandro Del Rio DO 01/03/2013 Type 2 diabetes mellitus well controlle d- can check glucose 2 hours after meal to assess meal time dose - normal rise after meal is 40 units- also if reccuent AM low can cut back on lantus 3 month sugar down from 9.1 to 6.8 goal is under 7.0 Diabetes Follow-up with Alejandro Del Rio DO 013 Cellulitis in already responding -finish ABX- call if not clear when gone M 20 Minutes with Alejandro Del Rio DO 08/04/2012 Chronic renal insufficiency Recent glom erular filtration rate is 38. continue with non aspirin pain relievers as needed M 20 Minutes with Alejandro Del Rio DO 08/04/2012 Depression doing well on current med M 20 Minutes with Gadiel Del Rio DO 08/04/2012 Essential hypertension Blood pressure is well control led today M 20 Minutes with Alejandro Del Rio DO 08/04/2012 Hyperlipidemia LDL cholesterol goal is less than 130 and current values 80 M 20 Minutes with Alejandro Del Rio DO 08/04/2012 Type 2 diabetes mellitus see below M 20 Minutes with James Del Rio DO 08/04/2012 Vitamin D deficiency advise 1000 iu daily M 20 Minute s with Alejandro Del Rio DO 08/04/2012 Allergic rhinitis AHR with Alejandro Del Rio DO 01/18/20 12 Cervical radiculopathy AHR with Alejandro Del Rio DO 01/17 Chronic renal insufficiency [facility] AHR with Alejandro Del Rio DO 01/18/2012 Depression Doing well on present meds AHR with Alejandro pan DO 01/18/2012 Emphysema AHR with Alejandro Del Rio DO 01/18/20 12 Essential hypertension Well-controlled today AHR with Mac Del Rio DO 01/18/2012 Generalized osteoarthritis AHR with Alejandro Del Rio DO 0 01/18/2012 Hyperlipidemia AHR with Alejandro Del Rio DO 01/18/20 12 Normal routine history and physical s ee updated problem list above for impression and plan of any problems addressed today. AHR with Alejandro Del Rio DO 01/18/2012 Olecranon bursitis Resolving. If his sk in turned red or it swells more he will call AHR with Alejandro Del Rio DO 01/18/2012 Organic impotence AHR with Alejandro Del Rio DO 01/18/20 12 Sleep apnea AHR with Alejandro Del Rio DO 01/18/20 12 Solitary thyroid nodule AHR with Alejandro Del Rio DO 01/04 Type 2 diabetes mellitus AHR with Alejandro Del Rio DO Vitamin D deficiency AHR with Alejandro Del Rio DO 012 Depression well controlled-he is doing very well on the citalopram prescription. 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 He feels considerable joint pain in his low back. His knees his elbows. He is using naproxen or Tylenol for pain relief. Today he was given written information telling him to avoid naproxen and ibuprofen, and all nonsteroidals for that matter with his mild chronic renal insufficiency M 20 Minutes with Alejandro Crystal Del Rio DO 07/14/2011 Hyperlipidemia labs after next ov-he h as had considerable muscle pain when on Lipitor as tolerated. The 40 mg dose of simvastatin if he tries to discontinue this med and has considerably less pain. We could consider another statin like Crestor M 20 Minutes with Alejandro Del Rio DO 07/14/2011 Lung neoplasm benign -please refer to CT scan on rec ord. Benign report M 20 Minutes with Alejandro Rojas Arnaudshannanbe DO 07/14/2011 Sebaceous gland disorder Very small, b enign-appearing follicular or cystic structure right forearm. Some secondary lichenification. We discussed that he should leave this alone and call if it is changing M 20 Minutes with Alejandro Crystal Del Rio DO 07/14/2011 Solitary thyroid nodule No difficulty swallowing. No throat pain. Sonogram advised M 20 Minutes with Alejandro Crystal Del Rio DO 07/14/2011 Type 2 diabetes mellitus novolog next- weight loss encouraged- and compliance with diet M 20 Minutes with Alejandro Crystal Del Rio DO 07/14/2011 Vitamin D deficiency Has been taking o nly one tablet daily. We will repeat a vitamin D level after his next visit M 20 Minutes with Alejandro Del Rio DO 07/14/2011 Essential hypertension well controlled M 20 Minutes with Alejandro Crystal Del Rio DO 01/06/2011 Hyperlipidemia LDL cholesterol, mildly elevated at 104. Titrate up on simvastatin. He did not tolerate Lipitor in the past. If not at goal. Consider Crestor M 20 Minutes with Alejandro Del Rio DO 01/06/2011 Type 2 diabetes mellitus Fasting readi ngs are in the 150+ range. Titrate up per protocol. We'll add Prandin to help with postprandial hyperglycemia and if it is not working consider NovoLog M 20 Minutes with Alejandro Del Rio DO 01/06/2011 Vitamin D deficiency Supplements added M 20 Minutes with Alejandro Del Rio DO 01/06/2011 Normal routine history and physical 30 minutes with Alejandro Del Rio DO 10/07/2010 Type II diabetes mellitus 30 minutes with Alejandro villegas DO 10/07/2010 Other specified pre-operative examination 30 minutes with Ritesh Barrera NP 08/21/2009 Instructions Instructions not supported for this document typeNo Instructions Recorded Medical Equipment - Implanted Devices Includes: Current and historical DevicesNo Medical Equipment Recorded Medications Includes: Current and historical Medications Current Medications (continue as prescribed) Jardiance 10 MG Oral Tablet 08/05/2020 Provider: Diagnosis: patient unsure of dosage metFORMIN HCl ER 750 MG Oral Tablet Extended Release 24 Hour 08/05/2020 Provider: Diagnosis: tiZANidine HCl 2 MG Oral Tablet 05/16/2020 Provider : Diagnosis: 1 at bedtime Polyethylene Glycol 3350 Oral Powder 09/18/2019 Pro vider: Alejandro Del Rio DO Diagnosis: Nausea once a day up to 1 SCOOP DAILY with 8 oz H2O HydroCHLOROthiazide 25MG Oral Tablet 09/20/2018 Pro vider: Diagnosis: Pantoprazole Sodium 40MG Oral Tablet Delayed Release 019 Provider: Diagnosis: Crestor 20MG Oral Tablet 09/20/2018 Provider: Diagnosis: Remicade 100MG Intravenous Solution Reconstituted 09/20/2018 Provider: Diagnosis: Ibuprofen 600MG Oral Tablet 09/20/2018 Provider: Diagnosis: PRN Tylenol 325MG Oral Capsule 09/20/2018 Provider: Diagnosis: Gabapentin 300MG Oral Capsule 09/20/2018 Provider: Diagnosis: 1-52 tid PRN Lisinopril 40MG Oral Tablet 09/20/2018 Provider: Diagnosis: Lantus SoloStar 100UNIT/ML Subcutaneous Solution Pen-injecto r 09/20/2018 Provider: Diagnosis: 60 units daily NovoLOG FlexPen 100UNIT/ML Subcutaneous Solution Pen-injecto r 09/20/2018 Provider: Diagnosis: sliding scale Adult Aspirin EC Low Strength 81MG Oral Tablet Delayed Relea se 09/20/2018 Provider: Diagnosis: Atenolol 100MG Oral Tablet 09/20/2018 Provider: Diagnosis: Citalopram Hydrobromide 20MG Oral Tablet 09/20/2018 Provider: Diagnosis: Flonase 50MCG/ACT Nasal Suspension 09/20/2018 Provi shaw: Diagnosis: Past Medications on file Doxycycline Hyclate 100 MG Oral Tablet 09/15/2019 - 08/05/20 20 Provider: Diagnosis: ER discharge Ondansetron HCl 4 MG Oral Tablet 09/15/2019 - 08/05/2020 Pro vider: Diagnosis: ER discharge metFORMIN HCl 500MG Oral Tablet 02/28/2019 - 08/05/2020 Prov ider: Diagnosis: MetFORMIN HCl 500MG Oral Tablet 09/20/2018 - 02/28/2019 Prov ider: Diagnosis: DULoxetine HCl 30 MG Capsule Delayed Release Particles 07/20 - 09/20/2018 Provider: Alejandro Del Rio DO Diagnosis: Radiculopathy, cervi jose region TAKE ONE CAPSULE BY MOUTH EVERY DAY Tylenol Extra Strength 500 MG Tablet 02/17/2016 - 09/20/2018 Provider: Diagnosis: as needed pain GNP Vitamin D 1000 UNIT Tablet 02/17/2016 - 09/20/2018 Provi shaw: Diagnosis: as directed 2 daily- added February 2016 Remicade 100 MG Solution Reconstituted 02/17/2016 - 09/20/19 19 Provider: Diagnosis: per rheumatology Lantus 100 UNIT/ML Solution 02/17/2016 - 09/20/2018 Provider : Diagnosis: injects 100 units subcutaneously every evening, [facility] Aspirin EC 81 MG Tablet Delayed Release 02/17/2016 - 019 Provider: Diagnosis: Lantus 100 UNIT/ML Solution 10/04/2015 - 02/17/2016 Provider : Diagnosis: injects 100 units subcutaneously every evening, [facility] NovoLOG FlexPen 100 UNIT/ML Solution Pen-injector 10/04/2015 - 09/20/2018 Provider: Alejandro Del Rio DO Diagnosis: 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 averaging 15 uinits per day Crestor 20 MG Tablet 06/03/2015 - 09/20/2018 Provider: Alejandro Del Rio DO Diagnosis: Hyperlipidemia, unsp ecified once a day Crestor 20 MG Tablet 06/03/2015 - 06/03/2015 Provider: Alejandro Del Rio DO Diagnosis: Hyperlipidemia, unsp ecified once a day DULoxetine HCl 30 MG Capsule Delayed Release Particles 06/03 - 07/20/2016 Provider: Alejandro Del Rio DO Diagnosis: Radiculopathy, cervi jose region once a day Protonix 40 MG Tablet, enteric coated 01/24/2015 - 9 Provider: Alejandro Del Rio DO Diagnosis: Esophageal Reflux twice a day RF only when he calls Citalopram Hydrobromide 20 MG Tablet 01/24/2015 - 09/20/2018 Provider: Alejandro Del Rio DO Diagnosis: Depressive Disorder Not Elsewhere Classified once a day RF only when he calls Lantus 100 UNIT/ML Solution 01/24/2015 - 10/04/2015 Provider : Diagnosis: inject 74 units subcutaneously every evening, [place] prescribes Remicade 100 MG Solution, when reconstituted 01/24/2015 - Provider: Diagnosis: per rheumatology Aspirin EC 81 MG Tablet, enteric coated 01/24/2015 - 016 Provider: Diagnosis: DULoxetine HCl 30 MG Capsule, delayed-release particles 01/05 - 06/03/2015 Provider: Alejandro Del Rio DO Diagnosis: Brachial Neuritis or Radiculitis Nos once a day Lisinopril 40 MG Tablet 01/24/2015 - 09/20/2018 Provider: Alejandro Del Rio DO Diagnosis: Hypertension Unspeci fied Essential once a day RF PRN Atenolol 100 MG Tablet 01/24/2015 - 09/20/2018 Provider: Alejandro Del Rio DO Diagnosis: Hypertension Unspeci fied Essential 1 every bedtime RF only when he calls Hydrochlorothiazide 25 MG Tablet 01/24/2015 - 09/20/2018 Pro vider: Alejandro Del Rio DO Diagnosis: Hypertension Unspeci fied Essential once a day Crestor 20 MG Tablet 01/24/2015 - 06/03/2015 Provider: Alejandro Del Rio DO Diagnosis: Unspecified Hyperlip idemia Nec once a day DULoxetine HCl 30 MG Capsule, delayed-release particles 09/07 - 01/24/2015 Provider: Alejandro Del Rio DO Diagnosis: once a day Lantus 100 UNIT/ML SC SOLN 09/20/2014 - 01/24/2015 Provider: Diagnosis: inject 74 units subcutaneously every evening, [facility] prescribes Polyethylene Glycol 3350 17 GM/SCOOP OR POWD 08/28/2014 - Provider: Alejandro Del Rio DO Diagnosis: CONSTIPATION 1 SCOOP DAILY- with 6-8 oz water RA Saline Enema 19-7 GM/118ML RE ENEM 08/28/2014 - 5 Provider: Diagnosis: prn constipation Lantus 100 UNIT/ML SC SOLN 08/28/2014 - 09/20/2014 Provider: Diagnosis: inject 70 units subcutaneously every evening Remicade 100 MG IV SOLR 08/28/2014 - 01/24/2015 Provider: Diagnosis: per rheumatology Crestor 20 MG OR TABS 05/21/2014 - 01/24/2015 Provider: Alejandro Del Rio DO Diagnosis: Unspecified Hyperlip idemia Nec replaces simvastatin- Lantus 100 UNIT/ML SC SOLN 05/21/2014 - 08/28/2014 Provider: Diagnosis: inject 62 units subcutaneously every evening Lisinopril 40 MG OR TABS 05/21/2014 - 01/24/2015 Provider: Alejandro Del Rio DO Diagnosis: Hypertension Unspeci fied Essential RF PRN Aspirin EC 81 MG OR TBEC 05/21/2014 - 01/24/2015 Provider: Diagnosis: DULoxetine HCl 30 MG OR CPEP 05/10/2014 - 10/04/2014 Provide r: Management [facility] Diagnosis: NovoLOG FlexPen 100 UNIT/ML SC SOLN 01/16/2014 - 09/20/2018 Provider: Alejandro Del Rio DO Diagnosis: Dm Without Complicat ion Type II or Unspecified Type Not Stat per sliding scale- meals tid- averages less than 15 units pe r day Fluticasone Propionate 50 MCG/ACT NA SUSP 01/16/2014 - 01/24 Provider: Aleajndro Del Rio DO Diagnosis: Allergic Rhinitis Ca use Unspecified 1 spray each nostril daily , RF only when he calls Citalopram Hydrobromide 20 MG OR TABS 01/16/2014 - 5 Provider: Alejandro Del Rio DO Diagnosis: Depressive Disorder Not Elsewhere Classified RF only when he calls Protonix 40 MG OR TBEC 01/16/2014 - 01/24/2015 Provider: Alejanrdo Del Rio DO Diagnosis: Esophageal Reflux RF only when he calls hydroCHLOROthiazide 25 MG TABS 01/16/2014 - 01/24/2015 Provi shaw: Alejandro Del Rio DO Diagnosis: Hypertension Unspeci fied Essential RF only when he calls Atenolol 100 MG OR TABS 01/16/2014 - 01/24/2015 Provider: Alejandro Del Rio DO Diagnosis: Hypertension Unspeci fied Essential RF only when he calls Lantus 100 UNIT/ML SC SOLN 01/16/2014 - 05/21/2014 Provider: Diagnosis: inject 60 units subcutaneously every evening Fluticasone Propionate 50 MCG/ACT NA SUSP 01/16/2014 - 01/16 Provider: Diagnosis: 1 spray each nostril daily , [facility] Aspirin [facility] 81 MG OR TBEC 01/16/2014 - 05/21/2014 Provider: Diagnosis: Simvastatin 80 MG OR TABS 11/03/2013 - 05/21/2014 Provider: Alejandro Del Rio DO Diagnosis: Unspecified Hyperlip idemia Nec Voltaren 1% TD GEL 09/18/2013 - 01/16/2014 Provider: Alejandro Del Rio DO Diagnosis: Unspecified Arthropa thy Involving Hand AAA 2 gram dose up to QID Lantus 100 UNIT/ML SC SOLN 09/18/2013 - 01/16/2014 Provider: Diagnosis: inject 60 units subcutaneously every evening Fluticasone Propionate 50 MCG/ACT NA SUSP 09/18/2013 - 01/16 Provider: Diagnosis: 1 spray each nostril daily , [facility] Aspirin EC 81 MG OR TBEC 09/18/2013 - 01/16/2014 Provider: Diagnosis: Lantus 100 UNIT/ML SC SOLN 05/11/2013 - 09/18/2013 Provider: Diagnosis: inject 60 units subcutaneously every evening Fluticasone Propionate 50 MCG/ACT NA SUSP 05/11/2013 - 09/18 Provider: Diagnosis: 1 spray each nostril daily , [facility] Aspirin EC 81 MG OR TBEC 05/11/2013 - 09/18/2013 Provider: Diagnosis: BD Insulin Syringe Ultrafine 31G X 5/16" 0.5 ML MISC 013 - 09/20/2018 Provider: Alejandro Del Rio DO Diagnosis: Dm Without Complicat ion Type II or Unspecified Type Not Stat Use at meal time - tid Lantus 100 UNIT/ML SC SOLN 01/03/2013 - 05/11/2013 Provider: Diagnosis: inject 60 units subcutaneously every evening Fluticasone Propionate 50 MCG/ACT NA SUSP 01/03/2013 - 05/11 Provider: Diagnosis: 1 spray each nostril daily , [facility] Aspirin EC 81 MG OR TBEC 01/03/2013 - 05/11/2013 Provider: Diagnosis: Vitamin D 400 UNIT OR CAPS 10/06/2012 - 01/03/2013 Provider: Diagnosis: daily Simvastatin 80 MG OR TABS 08/04/2012 - 11/03/2013 Provider: Alejandro Del Rio DO Diagnosis: has been on one daily HYDROcodone-Acetaminophen 5-325 MG OR TABS 08/04/2012 - 12/07 Provider: Diagnosis: [facility] Fluticasone Propionate 50 MCG/ACT NA SUSP 08/04/2012 - 01/03 Provider: Diagnosis: 1 spray each nostril daily , [facility] Aspirin EC 81 MG OR TBEC 08/04/2012 - 01/03/2013 Provider: Diagnosis: Lantus 100 UNIT/ML DC SOLN 08/04/2012 - 01/03/2013 Provider: Diagnosis: inject 60 units subcutaneously every evening Cephalexin 500 MG OR TABS 08/02/2012 - 01/03/2013 Provider: Diagnosis: 2 bid x 10 days[facility] Fluticasone Propionate 50 MCG/ACT NA SUSP 04/27/2012 - 08/04 Provider: Diagnosis: BD Insulin Syringe Ultrafine 31G X 5/16" 0.5 [place] [facility] [place] - 01/03/2013 Provider: Alejandro Del Rio DO Diagnosis: Dm Without Complicat ion Type II or Unspecified Type Not Stat Use at meal time - tid Fax to [facility] NovoLOG 100 UNIT/ML SC SOLN 03/02/2012 - 05/21/2014 Provider : Alejandro Del Rio DO Diagnosis: Dm Without Complicat ion Type II or Unspecified Type Not Stat use per sliding scale at meals tid FAX TO [facility] NovoLOG 100 UNIT/ML [facility] 03/02/2012 - 2012 Provider : Alejandro Del Rio DO Diagnosis: Dm Without Complicat ion Type II or Unspecified Type Not Stat use per sliding scale at meals tid Lisinopril 40 MG OR TABS 01/18/2012 - 05/21/2014 Provider: Alejandro Del Rio DO Diagnosis: [facility] TO [facility] hydroCHLOROthiazide 25 MG TABS 01/18/2012 - 01/16/2014 Provi shaw: Alejandro Del Rio DO Diagnosis: [facility]X TO [facility] Citalopram Hydrobromide 40 MG OR TABS 01/18/2012 - 4 Provider: Alejandro Del Rio DO Diagnosis: take 1/2 once a day , [facility]X TO [facility] BD Pen Needle Mini U/F 31G X 5 MM MISC 01/18/2012 - 09/20/19 19 Provider: Alejandro Del Rio DO Diagnosis: for use with lantus, [facility]X TO [facility] Alcohol Preps PADS 01/18/2012 - 09/20/2018 Provider: Alejandro Del Rio DO Diagnosis: [facility]X TO [facility] Protonix 40 MG OR TBEC 01/18/2012 - 01/16/2014 Provider: Alejandro Del Rio DO Diagnosis: [facility]X TO [facility] Atenolol 100 MG OR TABS 01/18/2012 - 01/16/2014 Provider: Alejandro Del Rio DO Diagnosis: FAX TO [facility] Levitra 20 MG OR TABS 01/18/2012 - 09/20/2018 Provider: Alejandro Del Rio DO Diagnosis: one tab prior to intercourse- [facility]X TO [facility] Simvastatin 80 MG OR TABS 01/18/2012 - 08/04/2012 Provider: Alejandro Del Rio DO Diagnosis: half daily tolerated better- [facility]X TO [facility] Zostavax 55979 UNT/0.65ML SC SOLR 01/18/2012 - 01/18/2012 Pr ovider: Alejandro Del Rio DO Diagnosis: Routine General Medi jose Examination At a [facility] 1 ADULT DOSE FOR OFFICE USE-check with [facility] or [facility] Prandin 0.5 MG OR TABS 10/09/2011 - 01/18/2012 Provider: Alejandro Del Rio DO Diagnosis: 1 tid and increase dinner dose based on post meal glu cose- max 4 with dinner Levitra 20 MG OR TABS 07/14/2011 - 01/18/2012 Provider: Alejandro Del Rio DO Diagnosis: one tab prior to intercourse- PER [facility] Prandin 0.5 MG OR TABS 07/14/2011 - 10/09/2011 Provider: Alejandro Del Rio DO Diagnosis: 1 tid and increase dinner dose based on post meal glu cose- max 4 with dinner Lantus 100 UNIT/ML SC SOLN 07/14/2011 - 08/04/2012 Provider: Diagnosis: inject 60 units subcutaneously every evening Simvastatin 80 MG OR TABS 07/14/2011 - 01/18/2012 Provider: Alejandro Del Rio DO Diagnosis: half daily tolerated better- through [facility] GNP Vitamin D 25 MCG (1000 UT) OR TABS 07/14/2011 - 08/04/20 12 Provider: Alejandro Del Rio DO Diagnosis: 1 daily Prandin 0.5 MG OR TABS 01/06/2011 - 07/14/2011 Provider: Alejandro Del Rio DO Diagnosis: 1 tid AC Lantus for OptiClik 100 UNIT/ML SC SOLN 01/06/2011 - 011 Provider: Alejandro Del Rio DO Diagnosis: 44 units daily and increase per protocol Simvastatin 80 MG OR TABS 01/06/2011 - 07/14/2011 Provider: Alejandro Del Rio DO Diagnosis: dose increased 01/06/2011 GNP Vitamin D 25 MCG (1000 UT) OR TABS 01/06/2011 - 07/14/20 11 Provider: Alejandro Del Rio DO Diagnosis: 2 daily Aspirin EC 81 MG OR TBEC 10/07/2010 - 08/04/2012 Provider: Diagnosis: Citalopram Hydrobromide 40 MG OR TABS 10/07/2010 - 2 Provider: Diagnosis: take 1/2 once a day PER [facility] hydroCHLOROthiazide 25 MG TABS 10/07/2010 - 01/18/2012 Provi shaw: Alejandro Del Rio DO Diagnosis: PER [facility] Levitra 20 MG OR TABS 10/07/2010 - 07/14/2011 Provider: Alejandro Del Rio DO Diagnosis: one tab prior to intercourse- PER [facility] Lisinopril 40 MG OR TABS 10/07/2010 - 01/18/2012 Provider: Alejandro Del Rio DO Diagnosis: PER [facility] Simvastatin 40 MG OR TABS 10/07/2010 - 01/06/2011 Provider: Alejandro Del Rio DO Diagnosis: [facility] MED - TAKES A HALF OF AN 80 MG TAB Protonix 40 MG OR TBEC 10/07/2010 - 01/18/2012 Provider: Diagnosis: [facility] Atenolol 100 MG OR TABS 10/07/2010 - 01/18/2012 Provider: Alejandro Del Rio DO Diagnosis: PER [facility] Alcohol Preps PADS 10/07/2010 - 01/18/2012 Provider: Alejandro Del Rio DO Diagnosis: BD Pen Needle Mini U/F 31G X 5 MM MISC 10/07/2010 - 01/18/20 12 Provider: Alejandro Del Rio DO Diagnosis: for use with lantus Lantus for OptiClik 100 UNIT/ML SC SOLN 10/07/2010 - 011 Provider: Alejandro Del Rio DO Diagnosis: use per dosing guide- start at 10 units per day and stop metformin and glucotrol Atenolol 100 MG OR TABS 11/20/2008 - 10/07/2010 Provider: Alejandro Del Rio DO Diagnosis: Protonix 40 MG OR TBEC 11/20/2008 - 10/07/2010 Provider: Diagnosis: [facility] Foradil Aerolizer 12 MCG IN CAPS 11/20/2008 - 10/07/2010 Pro vider: Diagnosis: PER [facility] Asmanex (120 Metered Doses) 220 MCG/INH AEPB 11/20/2008 - Provider: Diagnosis: Proventil HFA 108 (90 Base) MCG/ACT IN AERS 11/20/2008 - 09/2010 Provider: Diagnosis: Atrovent HFA 17 MCG/ACT IN AERS 11/20/2008 - 10/07/2010 Prov ider: Diagnosis: Citalopram Hydrobromide 40 MG OR TABS 11/20/2008 - 1 Provider: Diagnosis: take 1/2 once a day Fish Oil 1000 MG OR CAPS 06/05/2008 - 10/07/2010 Provider: Diagnosis: Simvastatin 40 MG OR TABS 06/05/2008 - 10/07/2010 Provider: Alejandro Del Rio DO Diagnosis: Lisinopril 40 MG OR TABS 02/21/2008 - 10/07/2010 Provider: Alejandro Del Rio DO Diagnosis: Simvastatin 40 MG OR TABS 01/05/2008 - 06/05/2008 Provider: Alejandro Del Rio DO Diagnosis: Celecoxib 200 MG OR CAPS 10/07/2007 - 10/07/2010 Provider: Alejandro Del Rio DO Diagnosis: CeleXA 20 MG OR TABS 10/07/2007 - 10/07/2010 Provider: Alejandro Del Rio DO Diagnosis: Levitra 20 MG OR TABS 10/07/2007 - 10/07/2010 Provider: Alejandro Del Rio DO Diagnosis: one tab prior to intercourse Omeprazole 40 MG OR CPDR 10/07/2007 - 11/20/2008 Provider: Alejandro Del Rio DO Diagnosis: Zocor 40 MG OR TABS 10/07/2007 - 06/05/2008 Provider: Alejandro Del Rio DO Diagnosis: GENERIC SIMVASTATIN FINE Glucophage 1000 MG OR TABS 10/07/2007 - 10/07/2010 Provider: Alejandro Del Rio DO Diagnosis: Lisinopril 40 MG OR TABS 10/07/2007 - 02/21/2008 Provider: Alejandro Del Rio DO Diagnosis: hydroCHLOROthiazide 25 MG TABS 10/07/2007 - 10/07/2010 Provi shaw: Alejandro Del Rio DO Diagnosis: glipiZIDE 10 MG OR TABS 10/07/2007 - 10/07/2010 Provider: Alejandro Del Rio DO Diagnosis: Atenolol 50 MG OR TABS 10/07/2007 - 11/20/2008 Provider: Alejandro Del Rio DO Diagnosis: Atenolol 50 MG OR TABS 07/04/2007 - 10/07/2007 Provider: Alejandro Del Rio DO Diagnosis: hydroCHLOROthiazide 25 MG TABS 07/04/2007 - 10/07/2007 Provi shaw: Alejandro Del Rio DO Diagnosis: glipiZIDE XL 5 MG OR TB24 07/04/2007 - 10/07/2007 Provider: Alejandro Del Rio DO Diagnosis: Lisinopril 40 MG OR TABS 07/04/2007 - 10/07/2007 Provider: Alejandro Del Rio DO Diagnosis: Viagra 100 MG OR TABS 07/01/2007 - 07/01/2007 Provider: Diagnosis: 1 po daily prn Atenolol 50 MG OR TABS 07/01/2007 - 07/04/2007 Provider: Alejandro Del Rio DO Diagnosis: Levitra 20 MG OR TABS 07/01/2007 - 10/07/2007 Provider: Diagnosis: one tab prior to intercourse hydroCHLOROthiazide 25 MG TABS 07/01/2007 - 07/04/2007 Provi shaw: Alejandro Del Rio DO Diagnosis: Lisinopril 40 MG OR TABS 07/01/2007 - 07/04/2007 Provider: Alejandro Del Rio DO Diagnosis: glipiZIDE XL 5 MG OR TB24 07/01/2007 - 07/04/2007 Provider: Alejandro Del Rio DO Diagnosis: Fish Oil 1000 MG OR CAPS 07/01/2007 - 06/05/2008 Provider: Diagnosis: Omeprazole 20 MG OR CPDR 07/01/2007 - 10/07/2007 Provider: Diagnosis: Zocor 40 MG OR TABS 07/01/2007 - 10/07/2007 Provider: Diagnosis: hydroCHLOROthiazide 25 MG TABS 07/01/2007 - 07/01/2007 Provi shaw: Diagnosis: Lisinopril 40 MG OR TABS 07/01/2007 - 07/01/2007 Provider: Diagnosis: Aspirin EC 81 MG OR TBEC 07/01/2007 - 10/07/2010 Provider: Diagnosis: Glucophage 1000 MG OR TABS 07/01/2007 - 10/07/2007 Provider: Diagnosis: glipiZIDE XL 5 MG OR TB24 03/28/2007 - 07/01/2007 Provider: Alejandro Del Rio DO Diagnosis: Celecoxib 200 MG OR CAPS 03/28/2007 - 10/07/2007 Provider: Alejandro Del Rio DO Diagnosis: Simvastatin 40 MG OR TABS 03/28/2007 - 10/07/2007 Provider: Alejandro Del Rio DO Diagnosis: Pure Hypercholestero lemia Soma Compound 200-325 MG OR TABS 03/28/2007 - 10/07/2010 Pro vider: Alejandro Del Rio DO Diagnosis: PRN CeleXA 20 MG OR TABS 03/28/2007 - 10/07/2007 Provider: Alejandro Del Rio DO Diagnosis: Medications Administered Includes: Administered Medications in patient's chartNo Administered Medications Recorded Vital Signs Includes: Vital Signs from 08/05/2019 through 08/05/2020 Vital Name 08/05/2020 09:29A 09/18/2019 10:00A Blood Pressure Sitting L 118/60 112/64 BP Cuff Size Large Large Pulse Rate-Sitting (bpm) 65 77 Pulse Rhythm Regular Regular Respiration Rate (breaths/min) 18 20 Temp-Tympanic (F) 96.9 96.5 Weight (lb) 195 242 Pain Level 0 0 Oxygen Saturation (%) 98 95 Flow Rate (l/min) (None (Room Air)) (None (Room Air)) FiO2 (%) 21 21 Results Includes: Results from 08/05/2019 through 08/05/2020 Hgb A1c In-House Labs Ordered by Alejandro Del Rio DO on 08/05/2020 Specimen Source: Whole blood Collected: 08/05/2020 R eported: 08/05/2020 Hgb A1c 7.0 A (Abnormal) Reviewed on 08/05/2020; All test result s are final unless otherwise noted. 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, including tongue Pema Enamorado NP 08/05/2020 [facility] established patient [id number] Nausea, Type 2 diabetes mellitus w diabetic chronic kidney disease, Essential (primary) hypertension, Mixed hyperlipidemia Alejandro Del Rio DO [facility] 09/18/2019 Medical History Last Updated Patient screening 06/22/2014 Negative 07/02/2014 History of diabetes mellitus 09/18/2013 History of renal failure 09/18/2013 History of thyroid disorder thyroid nodule 09/18/2013 History of hyperlipidemia 05/11/2013 R FOOT BUNION ~L KNEE ARTHROSCOPY 10/07/2010 History of essential hypertension 10/07/2007 Family History Includes: Family History in patient's chart Description Last Updated Maternal history of not using drugs 06/03/2015 No maternal history of depression 06/03/2015 No paternal history of depression 06/03/2015 Paternal history of not using drugs 06/03/2015 Family history of not using drugs 09/18/2013 No family history of depression 09/18/2013 Family history of hypertension Mother 05/11/2013 No family history of cancer 05/11/2013 No Family history of colon cancer in first degree rel ative before age 60 05/11/2013 No family history of depression 05/11/2013 No family history of diabetes mellitus 05/11/2013 No family history of early deaths 05/11/2013 No family history of heart disease 05/11/2013 Family history unchanged 07/24/2007 Review of Systems Review of Systems not supported for this document typeNo Review of Systems Recorded Mental Status Mental Status not supported for this document type Description Oriented to time, place, and person Functional Status Functional Status not supported for this document typeNo Functional Status Recorded Physical Exam Physical Exam not supported for this document typeNo Physical Exam Recorded Immunizations Includes: Immunizations in patient's chart Vaccine Dose # Date Site Reaction(s) Status Source Boostrix 1 10/07/2010 Left Arm Complete (Administered) [facility] H1N1 -Inactive 1 08/21/2009 Left Arm Complete (Administere d) [facility] Influenza 1 07/01/2007 Complete (Reported) Patient Influenza 2 06/05/2008 Right Arm Complete (Administered) [facility] Influenza 3 06/06/2010 Complete (Reported) Patient Influenza 4 07/14/2011 Right Arm Complete (Administered) [facility] Influenza 5 08/04/2012 Left Arm Complete (Administered) [facility] Influenza 6 09/18/2013 Right Arm Complete (Administered) [facility] Influenza 7 05/21/2014 Right Arm Complete (Administered) [facility] Influenza 8 06/03/2015 Upper Left Arm Complete (Administer ed) [facility] Influenza 9 07/07/2018 Complete (Reported) Patient Influenza, seasonal, injectable 1 06/15/2019 Compl ete (Reported) Patient PCV (Pneumovax 23) 1 06/21/2006 Complete (Reported ) Patient PCV (Pneumovax 23) 2 05/11/2013 Left Arm Complete (Adminis tered) [facility] PCV (Pneumovax 23) 3 04/13/2018 Complete (Reported ) Patient Prevnar 13 1 01/24/2015 Right Arm Complete (Administered) [facility] Prevnar 13 2 02/12/2017 Complete (Reported) Patien t Td 1 02/04/2003 Complete (Reported) Patient Tdap 1 01/25/2018 Complete (Reported) Patient Zostavax (Shingles) 1 04/13/2018 Complete (Reporte d) Patient Allergies Includes: Active, inactive, and resolved Allergies Substance Type Reaction Effective Status Lipitor 10 MG Oral Tablet Intolerance muscle pain 05/21/2014 Ac tive Encounters Includes: Encounters from 08/05/2019 through 08/05/2020 Encounter Provider Location Date Diagnosis Pre Op Alejandro Del Rio [facility] 08/05/2020 Di abetes Mellitus Type 2, Essential Hypertension, Gerd, Hyperlipidemia, Oral Leukoplakia, Nonorganic Sleep Apnea, Abnormal Electrocardiogram Chart Prep Alejandro Del Rio DO 03/08/2020 Referral Order Alejandro Del Rio DO 10/04/2019 Problem List Update Magy Mcknight RN 09/26/2019 Referral Order Alejandro Del Rio DO 09/19/2019 Hospital Follow-up Alejandro Del Rio [facility] 0 Nausea, Diabetes Mellitus Type 2, Nonorganic Sleep Apnea, Actinic Keratosis, Essential Hypertension, Taking Medication For Diabetes Long-term Use of Insulin, Hyperlipidemia, Bulging Intervertebral Disc Lumbar Insurance Includes: Active Insurance Policies Plan Name Member ID Group # Subscriber Relationship Effective Da brittany 1 - [employer] [id number] Medardo Simeon Self 2 - [facility] [place] 3,3000 [phone] Medardo Simeon Self 004 - Unknown Advance Directives Includes: Current Advance Directives Directive Pat Aware Third Green Party Effective Date Reviewed Status RHIO Yes 08/05/2012 Current and Ve rified Note: 08/04/12 packet given Pt Bill of Rights, Priv Prac, Ad Dir Yes 09/18/2019 Current and Verified Note: Pt declined AD packet Ebola Screening Performed Yes 09/18/2019 Current and Verified Note: Within the last month, have you traveled outside of the [place]? - NO Health Concerns Includes: Active Health Concerns Diabetes Mellitus Type 2 Onset 07/01/1990 Essential Hypertension Onset 07/01/2007 Patient Self-management Goal Added 02/28/2019 Goals Includes: Active Goals Your Hemoglobin A1c goal is less than 7 Added 07/01/2007 by Provider Health Concern: Diabetes Mellitus Type 2 Goal is to keep BP less than 140/90 Added 07/01/2007 by Provider Health Concern: Essential Hypertension SELF-MGMT: Weight Loss with Goal Weight of 250 Added 02/28/2019 by Patient Health Concern: Patient Self-management Goal Interventions Includes: Interventions for active Goals Continue current medications. New Lantu s Rules as follows: If you have three days in a row of a first-morning blood sugar greater than 130mg/dl, increase Lantus dose by 2u. Continue this every three days until morning blood sugars upon waking are less than 130mg/dl. If you have three days in a row of a first-morning blood sugar less than 95 mg/dl, decrease Lantus dose by 2u. Continue this every three day until first-morning blood sugar is greater than 95mg/dl.Lantus on Left side of belly. Novolog on Right side of belly..or in arms is acceptable.50-60 grams Carbohydrates per meal, three times a day, always with a source of protein.15-20 grams of Carbohydrates per snack, up to three a day.Test before and two hours one meal a day. Record readings and bring to next appointment- GOAL for after meal is to keep glucose rise of 40 points or less. IF MORE THAN 40 = eat less carbs or more mealtime insulinRegular exercise is encouraged. 15-30 minutes 4-5 times a week of exercise is great for helping control blood sugars and decrease complicationsStay well-hydrated. 8-8oz glasses of water a day is your goal. Added 07/01/2007 Goal: Your Hemoglobin A1c goal is less than 7 follow self management form Added 07/01/2007 Goal: Goal is to keep BP less than 140/90 Exercise: Aim for 30 minutes of exercise daily Added 02/28/2019 Goal: SELF-MGMT: Weight Loss with Goal Weight of 250 Evaluations & Outcomes Includes: Evaluations & Outcomes for active Goals Goal converted from Patient Problem data . Goal is currently In Progress. Added 07/01/2007 - In Progress Goal: Your Hemoglobin A1c goal is less than 7 Goal converted from Patient Problem data . Goal is currently In Progress. Added 07/01/2007 - In Progress Goal: Goal is to keep BP less than 140/90 Weight is 254 Added 02/28/2019 - In Progress Goal: SELF-MGMT: Weight Loss with Goal Weight of 250
--- OUTSIDE RECORDS SUMMARY | 2020-09-26 06:37 | CCD | Continuity of Care Document ---
Author Author Medardo NICOLE Organization Unknown Address [address], [address] [place] [address] Phone [phone] Care Team Providers Care Box Repairer Name Role Phone Dalton Arita AUTM [phone] AUTM Unavailable Aliza Sis AUTM [phone] Problems Active Problems Provider Date Type 2 [...] Carpenter MD 08/06 Tizanidine HCL 4mg Tablets Alberta Santiago, R.P.A.-C Metformin HCL 500mg Tablets 750 mg [...] CPT Code Status Date Vaccine Lot # 41094 Given 06/19/2016 Influenza Virus Split 3 Yrs And Above For Intramuscular Use 57057 Given 07/03/2015 Influenza Virus Split 3 Yrs And Above For Intramuscular Use Q2036 Given 06/15/2012 Influenza Vaccine 3 Years Of Age Or Older (Flulaval) Q2036 Given 07/15/2011 Influenza Vaccine 3 Years Of Age Or Older (Flulaval) 21434 Given 06/14/2008 Influenza Vaccine Vital Signs Date Vital Result Comment 08/22/2020 9:43am Height 70 inches 5'10" Weight 245.00 lb BMI (Body Mass Index) 35.1 kg/m2 [place] Body Weight 166 lb Weight 111.132 kg BSA (Body Surface Area) 2.28 m2 08/20/2020 9:40am BP Systolic 124 mmHg BP Diastolic 78 mmHg Heart Rate 78 /min O2 % BldC Oximetry 97 % Room Air Height 70 inches 5'10" Weight 247.00 lb BMI (Body Mass Index) 35.4 kg/m2 [place] Body Weight 166 lb Weight 112.039 kg BSA (Body Surface Area) 2.28 m2 Results Test Acquired Date Facility Test Result H/L Range Note Laboratory test finding 08/15/2020 [facility] [address] [place] [address] [phone] Pathology Request For Service (SEE NOTE) 1 Laboratory test finding 08/15/2020 [facility] [address], [place] [id number] [phone] Bedside Glucose 152 mg/dL High 83-110 1 FINAL DIAGNOSIS A-Left lateral oral tongue, superior, 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 B-Left lateral oral tongue, inferior, biopsy: Invasive squamous carcinoma, well to moderately differentiated. 08/16/2020 - 1310 CLINICAL DIAGNOSIS Left oral tongue leukoplakia 08/15/2020 - 1356 GROSS DIAGNOSIS A - Received in formalin labeled "biopsy left lateral oral tongue superior" and consists of a fragment of tissue 0.6 x 0.6 x 0.2 cm. All in one. B - Received in formalin labeled "biopsy left lateral oral tongue inferior" and consists of a fragments of tissue 0.5 x 0.5 x 0.3 cm. All in one. 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, incl uding tongue Nba Fields MD 07/17/2020 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, left ear Nba Fields MD 07/17/2020 H61.22 Impacted cerumen, left ear Nba Fields MD Plan of Treatment Future Appointment(s):* 08/13/2021 9:45 am - Audie Carpenter MD at [facility] Pulmonary/Thoracic 08/22/2020 - Raji Nicole II [place]* C02.9 Malignant neoplasm of tongue, unspecified* New Labs:* BUN & Creatinine ([facility]), Ordered: 08/22/20 * New Xrays:* CT Neck With Contrast, Ordered: 08/22/20 * Follow up:* with Dr Fields, 2w Functional Status Functional Condition Comment Date Status C-Pap Active Mental Status Description No Information Available Referrals Description No Information Available
--- OUTSIDE RECORDS SUMMARY | 2020-09-26 06:37 | CCD | Continuity of Care Document ---
Author Author [facility] Organization [facility] Address Unknown Phone Unavailable Care Team Providers Care Speed Runner Name Role Phone Kusum Love Unavailable Unavailable Allergies, Adverse Reactions, Alerts Substance [...] every 4 weeks 900 milligram - Active gabapentin 300 mg capsule take 2 capsule by oral route in AM, 2 capsules at lunch and 1 capsule at bedtime every day - Active ondansetron HCl 8 mg tablet take 1 tablet by oral route 3 times every day 8 MG - Active metformin 500 mg tablet take 1 tablet by oral route 2 times every day with morning and evening meals 500 MG - Active aspirin 81 mg tablet,delayed release [...] every da y Not Available - Active Problems Condition Type Effective Dates (start - stop) Clinical S tatus Comments Ankylosing spondylitis of multiple sites in spine Diag nosis interpretation (observable entity) Ankylosing spondylitis of multiple sites in spine Diag nosis interpretation (observable entity) Ankylosing spondylitis of multiple sites in spine Diag nosis interpretation (observable entity) Ankylosing spondylitis of multiple sites in spine Diag nosis interpretation (observable entity) Other manager terminal (current) 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 Diagnosis inter pretation (observable entity) Ankylosing spondylitis of multiple sites in spine Diag nosis interpretation (observable entity) Ankylosing spondylitis of multiple sites in spine Diag nosis interpretation (observable entity) Ankylosing spondylitis of multiple sites in spine Diag nosis interpretation (observable entity) - Ankylosing spondylitis of multiple sites in spine Diag nosis interpretation (observable entity) Other manager terminal (current) 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 Diagnosis inter pretation (observable entity) Ankylosing spondylitis of multiple sites in spine Diag nosis interpretation (observable entity) Ankylosing spondylitis of multiple sites in spine Diag nosis interpretation (observable entity) Ankylosing spondylitis of multiple sites in spine Diag nosis interpretation (observable entity) Ankylosing spondylitis of multiple sites in spine Diag nosis interpretation (observable entity) Other snf (current) 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 Diagnosis inter pretation (observable [...] spine Diag nosis interpretation (observable entity) Other snf (current) 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 Diagnosis inter pretation (observable [...] spine Diag nosis interpretation (observable entity) Other manager terminal (current) 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 Diagnosis inter pretation (observable entity) Ankylosing spondylitis of multiple sites in spine Diag nosis interpretation (observable entity) Ankylosing spondylitis of multiple sites in spine Diag nosis interpretation (observable entity) Ankylosing spondylitis of multiple sites in spine Diag nosis interpretation (observable entity) Ankylosing spondylitis of multiple sites in spine Diag nosis interpretation (observable entity) Other snf (current) 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 Diagnosis inter pretation (observable entity) Ankylosing spondylitis of multiple sites in spine Diag nosis interpretation (observable entity) Ankylosing spondylitis of multiple sites in spine Diag nosis interpretation (observable entity) Ankylosing spondylitis of multiple sites in spine Diag nosis interpretation (observable entity) Ankylosing spondylitis of multiple sites in spine Diag nosis interpretation (observable entity) Other snf (current) 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 Diagnosis inter pretation (observable entity) Ankylosing spondylitis of multiple sites in spine Diag nosis interpretation (observable entity) Ankylosing spondylitis of multiple sites in spine Diag nosis interpretation (observable entity) Ankylosing spondylitis of multiple sites in spine Diag nosis interpretation (observable entity) Ankylosing spondylitis of multiple sites in spine Diag nosis interpretation (observable entity) Other snf (current) 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 Diagnosis inter pretation (observable entity) Ankylosing spondylitis of multiple sites in spine Diag nosis interpretation (observable entity) Ankylosing spondylitis of multiple sites in spine Diag nosis interpretation (observable entity) Ankylosing spondylitis of multiple sites in spine Diag nosis interpretation (observable entity) Ankylosing spondylitis of multiple sites in spine Diag nosis interpretation (observable entity) Other manager terminal (current) 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 Diagnosis inter pretation (observable entity) Ankylosing spondylitis of multiple sites in spine Diag nosis interpretation (observable entity) Ankylosing spondylitis of multiple sites in spine Diag nosis interpretation (observable entity) Ankylosing spondylitis of multiple sites in spine Diag nosis interpretation (observable entity) Ankylosing spondylitis of multiple sites in spine Diag nosis interpretation (observable entity) Other snf (current) 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 Diagnosis inter pretation (observable entity) Ankylosing spondylitis of multiple sites in spine Diag nosis interpretation (observable entity) Other snf (current) 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 Diagnosis inter pretation (observable entity) Ankylosing spondylitis of multiple sites in spine Diag nosis interpretation (observable entity) Other manager terminal (current) 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 Diagnosis inter pretation (observable entity) Ankylosing spondylitis of multiple sites in spine Diag nosis interpretation (observable entity) Ankylosing spondylitis of multiple sites in spine Diag nosis interpretation (observable entity) Ankylosing spondylitis of multiple sites in spine Diag nosis interpretation (observable entity) Ankylosing spondylitis of multiple sites in spine Diag nosis interpretation (observable entity) Other snf (current) 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 Diagnosis inter pretation (observable entity) Ankylosing spondylitis of multiple sites in spine Diag nosis interpretation (observable entity) Ankylosing spondylitis of multiple sites in spine Diag nosis interpretation (observable entity) Ankylosing spondylitis of multiple sites in spine Diag nosis interpretation (observable entity) Other snf (current) 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 Diagnosis inter pretation (observable entity) Lumbago Diagnosis interpretation (observable entity) Ankylosing spondylitis of multiple sites in spine Diag nosis interpretation (observable entity) Encounter for screening for respiratory tuberculosis D iagnosis interpretation (observable entity) Ankylosing spondylitis of multiple sites in spine Diag nosis interpretation (observable entity) Other manager terminal (current) 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 Diagnosis inter pretation (observable entity) Ankylosing spondylitis of multiple sites in spine Diag nosis interpretation (observable entity) Ankylosing spondylitis of multiple sites in spine Diag nosis interpretation (observable entity) Other snf (current) 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 Diagnosis inter pretation (observable entity) Ankylosing spondylitis of multiple sites in spine Diag nosis interpretation (observable entity) Other snf (current) 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 Diagnosis inter pretation (observable entity) Ankylosing spondylitis of multiple sites in spine Diag nosis interpretation (observable entity) Ankylosing spondylitis of multiple sites in spine Diag nosis interpretation (observable entity) Other manager terminal (current) 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 Diagnosis inter pretation (observable entity) Ankylosing spondylitis of multiple sites in spine Diag nosis interpretation (observable entity) Other snf (current) 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 Diagnosis inter pretation (observable entity) Ankylosing spondylitis of multiple sites in spine Diag nosis interpretation (observable entity) Ankylosing spondylitis of multiple sites in spine Diag nosis interpretation (observable entity) Ankylosing spondylitis of multiple sites in spine Diag nosis interpretation (observable entity) Other manager terminal (current) 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 Diagnosis inter pretation (observable entity) Ankylosing spondylitis of multiple sites in spine Diag nosis interpretation (observable entity) Ankylosing spondylitis of multiple sites in spine Diag nosis interpretation (observable entity) Other snf (current) 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 Diagnosis inter pretation (observable entity) Ankylosing spondylitis of multiple sites in spine Diag nosis interpretation (observable entity) Ankylosing spondylitis of multiple sites in spine Diag nosis interpretation (observable entity) Other manager terminal (current) 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 Diagnosis inter pretation (observable entity) Ankylosing spondylitis of multiple sites in spine Diag nosis interpretation (observable entity) Other manager terminal (current) 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 Diagnosis inter pretation (observable entity) Ankylosing spondylitis of multiple sites in spine Diag nosis interpretation (observable entity) Other manager terminal (current) 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 Diagnosis inter pretation (observable entity) Pain in right shoulder Diagnosis interpretation (observable entity) Ankylosing spondylitis of multiple sites in spine Diag nosis interpretation (observable entity) Other manager terminal (current) 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 Diagnosis inter pretation (observable entity) Ankylosing spondylitis of multiple sites in spine Diag nosis interpretation (observable entity) Other manager terminal (current) 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 Diagnosis inter pretation (observable entity) Ankylosing spondylitis of multiple sites in spine Diag nosis interpretation (observable entity) Other snf (current) 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 Diagnosis inter pretation (observable entity) Ankylosing spondylitis of multiple sites in spine Diag nosis interpretation (observable entity) Other snf 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 Diagnosis interpretation (observable e ntity) Ankylosing spondylitis Problem (finding) - Active Mapped from [facility] Chronic Conditions table on 11/13/2014 by the [...] s Date Provider Providers Copied on Encounter [facility], [address] [place] [address], [id number], [place] tel:[phone] [facility] No Information eVena Noe. [address] [place] [address], [id number], [place]. tel:[phone] [facility], [address] [place] [address], [id number], [place] tel:[phone] [facility] Ankylosing spondylitis of multiple sites in spine [facility]. [address] [place] [address], [id number], [place]. tel:[phone] Referring Provider: Alejandro Del Rio [address], [address]. tel:[phone] [facility], [address] [place] [address], [id number], [place] tel:[phone] [facility] Ankylosing spondylitis of multiple sites in spine Leonie Holcomb. [address] [place], [place], [id number], [place]. tel:[phone] Referring Provider: Alejandro Del Rio [address], [address]. tel:[phone] [facility], [address] [place] [address], [id number], [place] tel:[phone] [facility] Ankylosing spondylitis of multiple sites in spine [facility] i. [address] [place] [address], [id number], [place]. tel:[phone] Referring Provider: Alejandro Del Rio [address] [place], [address]. tel:[phone] [facility], [address] [place] [address], [id number], [place] tel:[phone] [facility] Ankylosing spondylitis of multiple sites in spineOther snf (current) 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 [facility] Kusum. [address] [place] [address], [id number], [place]. tel:[phone] Referring Provider: Alejandro Del Rio DO , [address], [address]. tel:[phone] [facility], [address] [place] [address], [id number], [place] tel:[phone] [facility] Ankylosing spondylitis of multiple sites in spine Dinesh Solares i. [address] [place] [address], [id number], [place]. tel:[phone] Referring Provider: Alejandro Del Rio DO[address], [address]. tel:[phone] [facility], [address] [place] [address], [id number], [place] tel:[phone] [facility] Ankylosing spondylitis of multiple sites in spine [facility] Beck i. [address] [place] [address], [id number], [place]. tel:[phone] Referring Provider: Alejandro Del Rio DO[address], [address]. tel:[phone] [facility], [address] [place] [address], [id number], [place] tel:[phone] [facility] Ankylosing spondylitis of multiple sites in spine Melany Beltran Diana. [address] [facility], [address], [place], [address], [place]. tel:[phone] Referring Provider: Alejandro Del Rio DO , [address], [address]. tel:[phone] [facility], [address] [place] [address], [id number], [place] tel:[phone] [facility] Ankylosing spondylitis of multiple sites in spineOther snf (current) 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 Khairallah Ramzi. [address] [place] [address], [id number], [place]. tel:[phone] Referring Provider: Alejandro Del Rio DO , [address], [address]. tel:[phone] [facility], [address] [place] [address], [id number], [place] tel:[phone] [facility] Ankylosing spondylitis of multiple sites in spine Khairallah Beck i. [address] [place] [address], [id number], [place]. tel:[phone] Referring Provider: Alejandro Del Rio DO, [address], [address]. tel:[phone] [facility], [address] [place] [address], [id number], [place] tel:[phone] [facility] Ankylosing spondylitis of multiple sites in spine Khairallah Beck i. [address] [place] [address], [id number], [place]. tel:[phone] Referring Provider: Alejandro Del Rio DO, [address], [address]. tel:[phone] [facility], [address] [place] [address], [id number], [place] tel:[phone] [facility] Ankylosing spondylitis of multiple sites in spine [facility] Sol[facility] i. [address] [place] [address], [id number], [place]. tel:[phone] Referring Provider: Alejandro Del Rio DO[address], [address]. tel:[phone] [facility], [address] [place] [address], [id number], [place] tel:[phone] [facility] Ankylosing spondylitis of multiple sites in spineOther manager terminal (current) 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 Melany BROWN Diana. [address] [facility], [address], [place], [address], [place]. tel:[phone] Referring Provider: Alejandro Del Rio [address], [address]. tel:[phone] [facility], [address] [place] [address], [id number], [place] tel:[phone] [facility] Ankylosing spondylitis of multiple sites in spine Dinesh Solares i. [address] [place] [address], [id number], [place]. tel:[phone] Referring Provider: Alejandro Del Rio DO[address], [address]. tel:[phone] [facility], [address] [place] [address], [id number], [place] tel:[phone] [facility] Ankylosing spondylitis of multiple sites in spine No Information R eferring Provider: Alejandro Del Rio [address], [address]. tel:[phone] [facility], [address] [place] [address], [id number], [place] tel:[phone] [facility] Ankylosing spondylitis of multiple sites in spine [facility] i. [address] [place] [address], [id number], [place]. tel:[phone] Referring Provider: Alejandro Del Rio DO[address], [address]. tel:[phone] [facility], [address] [place] [address], [id number], [place] tel:[phone] [facility] Ankylosing spondylitis of multiple sites in spine [address], [id number], [place]. tel:[phone] Referring Provider: Alejandro Del Rio [address], [address]. tel:[phone] [facility], [address] [place] [address], [id number], [place] tel:[phone] [facility] Ankylosing spondylitis of multiple sites in spineOther snf (current) 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Low back pain Melany BROWN Diana. [address] [facility], [address], [place], [address], [place]. tel:[phone] Referring Provider: Alejandro Del Rio DO[address], [address]. tel:[phone] [facility], [address] [place] [address], [id number], [place] tel:[phone] [facility] Ankylosing spondylitis of multiple sites in spine [address], [id number], [place]. tel:[phone] Referring Provider: Alejandro Del Rio [address], [address]. tel:[phone] [facility], [address] [place] [address], [id number], [place] tel:[phone] [facility] Ankylosing spondylitis of multiple sites in spine Rukhsana Brown. [address] [place] [address], [id number], [place]. tel:[phone] Referring Provider: Alejandro Del Rio DO[address], [address]. tel:[phone] [facility], [address] [place] [address], [id number], [place] tel:[phone] [facility] Ankylosing spondylitis of multiple sites in spine Leonie Holcomb. [address] [place], [place], [id number], [place]. tel:[phone] Referring Provider: Alejandro Del Rio DO[address], [address]. tel:[phone] [facility], [address] [place] [address], [id number], [place] tel:[phone] [facility] Ankylosing spondylitis of multiple sites in spineOther manager terminal (current) 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 Melany BROWN Diana. [address] [facility], [address], [place], [address], [place]. tel:[phone] Referring Provider: Alejandro Del Rio DO[address], [address]. tel:[phone] [facility], [address] [place] [address], [id number], [place] tel:[phone] [facility] Ankylosing spondylitis of multiple sites in spine Dinesh Solares i. [address] [place] [address], [id number], [place]. tel:[phone] Referring Provider: Alejandro Del Rio DO[address], [address]. tel:[phone] [facility], [address] [place] [address], [id number], [place] tel:[phone] [facility] Ankylosing spondylitis of multiple sites in spine Dinesh constantino [address] [place] [address], [id number], [place]. tel:[phone] Referring Provider: Alejandro Del Rio DO[address], [address]. tel:[phone] [facility], [address] [place] [address], [id number], [place] tel:[phone] [facility] Ankylosing spondylitis of multiple sites in spine Dinesh constantino [address] [place] [address], [id number], [place]. tel:[phone] Referring Provider: Alejandro Del Rio DO[address], [address]. tel:[phone] [facility], [address] [place] [address], [id number], [place] tel:[phone] [facility] Ankylosing spondylitis of multiple sites in spineOther manager terminal (current) 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 Melany BROWN Diana. [address] [facility], [address], [place], [address], [place]. tel:[phone] Referring Provider: Alejandro Del Rio DO[address], [address]. tel:[phone] [facility], [address] [place] [address], [id number], [place] tel:[phone] [facility] Ankylosing spondylitis of multiple sites in spine Dinesh constantino [address] [place] [address], [id number], [place]. tel:[phone] Referring Provider: Alejandro Del Rio DO[address], [address]. tel:[phone] [facility], [address] [place] [address], [id number], [place] tel:[phone] [facility] Ankylosing spondylitis of multiple sites in spine Dinesh Beck i. [address] [place] [address], [id number], [place]. tel:[phone] Referring Provider: Alejandro Del Rio [address], [address]. tel:[phone] [facility], [address] [place] [address], [id number], [place] tel:[phone] [facility] Ankylosing spondylitis of multiple sites in spine [facility] i. [address] [place] [address], [id number], [place]. tel:[phone] Referring Provider: Alejandro Del Rio DO[address], [address]. tel:[phone] [facility], [address] [place] [address], [id number], [place] tel:[phone] [facility] Ankylosing spondylitis of multiple sites in spineOther snf (current) 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 Melany BROWN December. [address], [address], [place], [address], [place]. tel:[phone] Referring Provider: Alejandro Del Rio [address], [address]. tel:[phone] [facility], [address] [place] [address], [id number], [place] tel:[phone] [facility] Ankylosing spondylitis of multiple sites in spine Dinesh Solares i. [address] [place] [address], [id number], [place]. tel:[phone] Referring Provider: Alejandro Del Rio [address], [address]. tel:[phone] [facility], [address] [place] [address], [id number], [place] tel:[phone] [facility] Ankylosing spondylitis of multiple sites in spine Dinesh Solares i. [address] [place] [address], [id number], [place]. tel:[phone] Referring Provider: Alejandro Del Rio [address], [address]. tel:[phone] [facility], [address] [place] [address], [id number], [place] tel:[phone] [facility] Ankylosing spondylitis of multiple sites in spine 2018 No Information R eferring Provider: Alejandro Del Rio [address], [address]. tel:[phone] [facility], [address] [place] [address], [id number], [place] tel:[phone] [facility] Ankylosing spondylitis of multiple sites in spineOther snf (current) 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 Melany BROWN Diana. [address], [address], [place], [address], [place]. tel:[phone] Referring Provider: Alejandro Del Rio [address], [address]. tel:[phone] [facility], [address] [place] [address], [id number], [place] tel:[phone] [facility] Ankylosing spondylitis of multiple sites in spine No Information R eferring Provider: Alejandro Del Rio DO[address], [address]. tel:[phone] [facility], [address] [place] [address], [id number], [place] tel:[phone] [facility] Ankylosing spondylitis of multiple sites in spine [facility] Beck i. [address] [place] [address], [id number], [place]. tel:[phone] Referring Provider: Alejandro Del Rio [address], [address]. tel:[phone] [facility], [address] [place] [address], [id number], [place] tel:[phone] [facility] Ankylosing spondylitis of multiple sites in spine alyssa Beck i. [address] [place] [address], [id number], [place]. tel:[phone] Referring Provider: Alejandro Del Rio [address], [address]. tel:[phone] [facility], [address] [place] [address], [id number], [place] tel:[phone] [facility] Ankylosing spondylitis of multiple sites in spineOther snf (current) 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 Melany BROWN December. [address] [facility], [address], [place], [address], [place]. tel:[phone] Referring Provider: Alejandro Del Rio [address], [address]. tel:[phone] [facility], [address] [place] [address], [id number], [place] tel:[phone] [facility] Ankylosing spondylitis of multiple sites in spine Rukhsana Brown. [address] [place] [address], [id number], [place]. tel:[phone] Referring Provider: Alejandro Del Rio DO[address], [address]. tel:[phone] [facility], [address] [place] [address], [id number], [place] tel:[phone] [facility] Ankylosing spondylitis of multiple sites in spine Dinesh Solares i. [address] [place] [address], [id number], [place]. tel:[phone] Referring Provider: Alejandro Del Rio DO[address], [address]. tel:[phone] [facility], [address] [place] [address], [id number], [place] tel:[phone] [facility] Ankylosing spondylitis of multiple sites in spine Dinesh Solares i. [address] [place] [address], [id number], [place]. tel:[phone] Referring Provider: Alejandro Del Rio DO[address], [address]. tel:[phone] [facility], [address] [place] [address], [id number], [place] tel:[phone] [facility] Ankylosing spondylitis of multiple sites in spineOther snf (current) 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 Dinesh Orellana. [address] [place] [address], [id number], [place]. tel:[phone] Referring Provider: Alejandro Del Rio DO , [place], [address]. tel:[phone] [facility], [address] [place] [address], [id number], [place] tel:[phone] [facility] Ankylosing spondylitis of multiple sites in spine Dinesh Padillaz i. [address] [place] [address], [id number], [place]. tel:[phone] Referring Provider: Alejandro Del Rio DO[address], [address]. tel:[phone] [facility], [address] [place] [address], [id number], [place] tel:[phone] [facility] Other snf (current) 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 Jakemango Padillacarla. [address] [place] [place] [address], [id number], [place]. tel:[phone] [facility], [address] [place] [address], [id number], [place] tel:[phone] [facility] Ankylosing spondylitis of multiple sites in spineOther manager terminal (current) 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 Melany BROWN Diana. [address] [facility], [address], [place], [address], [place]. tel:[phone] Referring Provider: Alejandro Del Rio DO[address], [address]. tel:[phone] [facility], [address] [place] [address], [id number], [place] tel:[phone] [facility] Ankylosing spondylitis of multiple sites in spine No Information R eferring Provider: Alejandro Del Rio DO[address], [address]. tel:[phone] [facility], [address] [place] [address] [place], [id number], [place] tel:[phone] [facility] Ankylosing spondylitis of multiple sites in spine Khalyssa Beck i. [address] [place] [address], [id number], [place]. tel:[phone] Referring Provider: Alejandro Del Rio DO[address], [address]. tel:[phone] [facility], [address] [place] [address], [id number], [place] tel:[phone] [facility] Ankylosing spondylitis of multiple sites in spine Khalyssa Beck i. [address] [place] [address], [id number], [place]. tel:[phone] Referring Provider: Alejandro Del Rio DO[address], [address]. tel:[phone] [facility], [address] [place] [address], [id number], [place] tel:[phone] [facility] Ankylosing spondylitis of multiple sites in spineOther manager terminal (current) 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 Dinesh Orellana. [address] [place] [address], [id number], [place]. tel:[phone] Referring Provider: Alejandro Del Rio DO [address], [address]. tel:[phone] [facility], [address] [place] [address], [id number], [place] tel:[phone] [facility] Ankylosing spondylitis of multiple sites in spine Dinesh Padillaz i. [address] [place] [address], [id number], [place]. tel:[phone] Referring Provider: Alejandro Del Rio DO, [address], [address]. tel:[phone] [facility], [address] [place] [address], [id number], [place] tel:[phone] [facility] Ankylosing spondylitis of multiple sites in spine Dinesh Solares i. [address] [place] [address], [id number], [place]. tel:[phone] Referring Provider: Alejandro Del Rio DO, [address], [address]. tel:[phone] [facility], [address] [place] [address], [id number], [place] tel:[phone] [facility] Ankylosing spondylitis of multiple sites in spineOther snf (current) 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Lumbago Harry Pozo. [address] [place] [address], [id number], [place]. tel:[phone] Referring Provider: Alejandro Del Rio DO, [address], [address]. tel:[phone] [facility], [address] [place] [address], [id number], [place] tel:[phone] [facility] Ankylosing spondylitis of multiple sites in spine alyssa Solares i. [address] [place] [address], [id number], [place]. tel:[phone] Referring Provider: Alejandro Del Rio DO, [address], [address]. tel:[phone] [facility], [address] [place] [address], [id number], [place] tel:[phone] [facility] Encounter for screening for respiratory tuberculosis No Information [facility], [address] [place] [address], [id number], [place] tel:[phone] [facility] Ankylosing spondylitis of multiple sites in spineOther snf (current) 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 Rome Alfred. [address] [place] [address], [id number], [place]. tel:[phone] Referring Provider: Alejandro Del Rio [address], [address]. tel:[phone] [facility], [address] [place] [address], [id number], [place] tel:[phone] [facility] Ankylosing spondylitis of multiple sites in spine Alisonestuardo Padillakenya brooks. [address] [place] [address], [id number], [place]. tel:[phone] Referring Provider: Alejandro Del Rio [address], [address]. tel:[phone] [facility], [address] [place] [address], [id number], [place] tel:[phone] [facility] Ankylosing spondylitis of multiple sites in spineOther snf (current) 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 No Information Referring Provider: Alejandro Del Rio [address], [address]. tel:[phone] [facility], [address] [place] [address], [id number], [place] tel:[phone] [facility] Ankylosing spondylitis of multiple sites in spineOther snf (current) 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 Kiya Burkett. [address] [place] [address], [id number], [place]. tel:[phone] Referring Provider: Alejandro Del Rio [address], [address]. tel:[phone] [facility], [address] [place] [address], [id number], [place] tel:[phone] [facility] Ankylosing spondylitis of multiple sites in spine Dinesh Solares i. [address] [place] [address], [id number], [place]. tel:[phone] Referring Provider: Alejandro Del Rio DO[address], [address]. tel:[phone] [facility], [address] [place] [address], [id number], [place] tel:[phone] [facility] Ankylosing spondylitis of multiple sites in spineOther snf (current) 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 Veena Noe. [address] [place] [address], [id number], [place]. tel:[phone] Referring Provider: Alejandro Del Rio DO [address], [address]. tel:[phone] [facility], [address] [place] [address], [id number], [place] tel:[phone] [facility] Ankylosing spondylitis of multiple sites in spine Dinesh Padillaz i. [address] [place] [address], [id number], [place]. tel:[phone] Referring Provider: Alejandro Del Rio DO[address], [address]. tel:[phone] [facility], [address] [place] [address], [id number], [place] tel:[phone] [facility] Other snf (current) 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Ankylosing spondylitis of multiple sites in spine Alisonestuardo Reyna. [address] [place] [address], [id number], [place]. tel:[phone] Referring Provider: Alejandro Del Rio DO [address], [address]. tel:[phone] [facility], [address] [place] [address], [id number], [place] tel:[phone] [facility] Ankylosing spondylitis of multiple sites in spine [facility] Beck i. [address] [place] [address], [id number], [place]. tel:[phone] Referring Provider: Alejandro Del Rio DO, [address], [address]. tel:[phone] [facility], [address] [place] [address], [id number], [place] tel:[phone] [facility] Ankylosing spondylitis of multiple sites in spineOther snf (current) 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 Antony Kusum. [address] [place] [address], [id number], [place]. tel:[phone] Referring Provider: Alejandro Del Rio DO [address], [address]. tel:[phone] [facility], [address] [place] [address], [id number], [place] tel:[phone] [facility] Ankylosing spondylitis of multiple sites in spine [facility] Beck i. [address] [place] [address], [id number], [place]. tel:[phone] Referring Provider: Alejandro Del Rio DO, [address], [address]. tel:[phone] [facility], [address] [place] [address], [id number], [place] tel:[phone] [facility] Ankylosing spondylitis of multiple sites in spineOther manager terminal (current) 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 Harry Pozo. [address] [place] [address], [id number], [place]. tel:[phone] Referring Provider: Alejandro Del Rio [address], [address]. tel:[phone] [facility], [address] [place] [address], [id number], [place] tel:[phone] [facility] Ankylosing spondylitis of multiple sites in spine Dinesh Solares todd. [address] [place] [address], [id number], [place]. tel:[phone] Referring Provider: Alejandro Del Rio DO[address], [address]. tel:[phone] [facility], [address] [place] [address], [id number], [place] tel:[phone] [facility] Ankylosing spondylitis of multiple sites in spineOther manager terminal (current) 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 Harry Pozo. [address] [place] [address], [id number], [place]. tel:[phone] Referring Provider: Alejandro Del Rio [address], [address]. tel:[phone] [facility], [address] [place] [address], [id number], [place] tel:[phone] [facility] Ankylosing spondylitis of multiple sites in spineOther manager terminal (current) 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 Harry Pozo. [address] [place] [address], [id number], [place]. tel:[phone] Referring Provider: Alejandro Del Rio [address], [address]. tel:[phone] [facility], [address] [place] [address], [id number], [place] tel:[phone] [facility] Ankylosing spondylitis of multiple sites in spineOther snf (current) 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Pain in right shoulder Kiya Burkett. [address] [place], [place], [id number], [place]. tel:[phone] Referring Provider: Alejandro Del Rio [address], [address]. tel:[phone] [facility], [address] [place] [address], [id number], [place] tel:[phone] [facility] Ankylosing spondylitis of multiple sites in spineOther manager terminal (current) 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 Renea Darby. [address] [place], [place], [id number], [place]. tel:[phone] Referring Provider: Alejandro Del Rio DO [address], [address]. tel:[phone] [facility], [address] [place] [address], [id number], [place] tel:[phone] [facility] Ankylosing spondylitis of multiple sites in spineOther manager terminal (current) 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 Renea Darby. [address] [place], [place], [id number], [place]. tel:[phone] Referring Provider: Alejandro Del Rio [address], [address]. tel:[phone] [facility], [address] [place] [address], [id number], [place] tel:[phone] [facility] Ankylosing spondylitis of multiple sites in spineOther snf (current) 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 Harry Pozo. [address] [place] [address], [id number], [place]. tel:[phone] Referring Provider: Alejandro Laresbe , [address], [address]. tel:[phone] [facility], [address] [place] [address], [id number], [place] tel:[phone] [facility] Ankylosing spondylitis of multiple sites in spineOther snf 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 No Information Referring Provider: Alejandro Del Rio [address], [address]. tel:[phone] [facility], [address] [place] [address], [id number], [place] tel:[phone] [facility] No Information Dinesh Orellana. [address] [place] [address], [id number], [place]. tel:[phone] Referring Provider: Alejandro Del Rio [address], [address]. tel:[phone] [facility], [address] [place] [address], [id number], [place] tel:[phone] [facility] No Information Dinesh Orellana. [address] [place] [address], [id number], [place]. tel:[phone] Referring Provider: Alejandro Laresbe [address], [address]. tel:[phone] Family History Family Member Type Diagnosis Age At Onset Problem (finding) Family history of High Blood P reasure Problem (finding) Family history of Arthritis Immunizations Vaccine Date Status Comments Influenza, injectable, MDCK, preservativ e free, 0.5 mL dosage, Flucelvax Quad administered Source: New Immuniza tion Record Influenza, injectable, MDCK, Flucelvax Quad Y 18 administered Note: per patient ; Source: Certificate Influenza, injectable, quadrivalent, spl it virus, 18 years or older Afluria Quad administered Note: Invalid docume nted admin date was . ; Source: Other Provider Influenza, injectable, trivalent, split virus, 4 years and older, Fluvirin administered Note: approx ; Sourc e: Other Provider Influenza, split virus, injectable, 3 years and older Fluvirin [id number] administered Note: approx ; Source: Other Provider Never had Zoster administered Source: New Imm unization Record Influenza virus vaccine, Injection administered Source: Other Provider Pneumococcal polysaccharide PPV23 administered Note: Approx.Invalid documented admin date was . ; Source: Other Provider pneumo (2 yrs or older) (PPV23) administered Source: Other Provider Payers Payer name Insurance type Covered libertarian ID Authorization(s ) Medicare MB [id number] [employer] [id number] Medicare MB [id number] [employer] [id number] Social History Type Description Quantity Date Captured Comments Sex Male Smoking Status No Information Vital Signs Date / Time: Height Weight BMI Pulse Rate Blood Pressure Temperatu re Respiratory Rate Body Surface Area Head Circumference BMI percentile Pulse Ox In haled Ox No Information Chief Complaint And Reason For Visit No Information Reason For Referral Reason For Referral No Information Plan Of Treatment Date Type Action Status Referral Referred To: LINDA POSADA [facility], [address] [place], [phone] Ordered: Referrals: Orthopedic Surgery. LINDA POSADA. Consult Appointment date/timeframe: 01/13/2016 ordered Referral Ordered: *SHOULDER X-RAY, COMPLETE, 2 VIEW ordered Referral Ordered: *SPINE X-RAY, ANTEROPOSTERIOR/LATERAL ordered Referral Ordered: *SACROILIAC JOINTS X-RAY, MORE THAN 3 VIEWS ordered Referral Ordered: *HAND X-RAY, 2 VIEWS Right ordered Referral Ordered: *HAND X-RAY, 2 VIEWS Left ordered Appointment Medardo Simeon BOOKED History Of Present Illness Encounter Date Complaint [...]
--- OUTSIDE RECORDS SUMMARY | 2020-09-26 06:37 | CCD ---
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 Active 50415825 Problem Spondylosis of lumbosacral region without myelop athy or radiculopathy M47.817 Active 07655717 Problem Spondylosis of lumbar region without myelopathy or radiculopathy M47.816 Active 13828719 Problem 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 y or radiculopathy M47.814 Active 858604622 Problem Lumbar facet arthropathy M46.96 Active 6775856 08 Problem Spondylosis without myelopathy or radiculopathy, lumbar region M47.816 Active 054176999 Problem Ankylosing spondylitis, unspecified site of spine M45.9 Active 1983088 Problem Myalgia M79.1 Active 49458794 Problem Sacroiliitis, not elsewhere classified M46.1 A ctive 22476464 Problem Lumbosacral spondylosis with radiculopathy M47.27 Active 265971509 Problem Spondylosis 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.815 Active 37624293 ALLERGIES Allergen (clinical drug ingredient) Drug/Non Drug Allergy do cumented on EMR Reaction Allergy Type Onset Date Status atorvastatin Lipitor([facility] Code:[address]-39) muscle pain Drug Allergy Active ENCOUNTERS from 1950 to 2020-08-15 Encounter Location Date Provider Diagnosis [facility] [address] [place] [id number] Aug, Huy Gore Spondylosis of lumbosacral region withou t myelopathy or radiculopathy M47.817 IMMUNIZATIONS No Information SOCIAL HISTORY Tobacco Use: Social History Observation Description Date Details (start date - stop date) Never Smoker Sex Assigned At : Social History Observation Description Sex Assigned At Unknown Language: Question Answer Notes Languages spoken: Albanian Baptist: Question Answer Notes Baptist 08 Anabaptist Alcohol Screening: Question Answer Notes Did you [...] REASON FOR REFERRAL No Information VITAL SIGNS Weight 251 lbs Aug, Height 70 in Aug, BMI 36.01 kg/m2 Aug, Heart Rate 56 /min Aug, Respiratory Rate 18 /min Aug, Temperature 97.1 degrees Fahrenheit Aug, Oximetry 96% Aug, Blood pressure systolic 115 mm Hg Aug, Blood pressure diastolic 62 mm Hg Aug, MEDICATIONS Medication SIG (Take, Route, Frequency, Duration) [...] Information RESULTS No Results REASON FOR VISIT BACK MEDICAL (GENERAL) HISTORY Type Description Date Medical History hyperlipidemia Medical History hypertension Medical History diabetes mellitus type 2 Medical History acid reflux Medical History arthritis Medical History Ankylosis Spondylitis/ [facility] [place] Medical History Back Pain Surgical History left knee surgery Surgical History right foot bunionectomy Hospitalization History Knee Surg Hospitalization History Dehydration at [facility] 09/2019 Goals Section No Information Health Concerns No Information MEDICAL EQUIPMENT No Information MENTAL STATUS No Information FUNCTIONAL STATUS No Information ASSESSMENTS Encounter Date Diagnosis Assessment Notes Treatment Notes Treatm ent Clinical Notes Aug, Spondylosis of lumbosacral r egion without myelopathy or radiculopathy (ICD-10 - M47.817) 70-year-old male in for chronic pain follow-up. Given presenting symptoms recommend diagnostic facet block #2 left side with post procedural follow-up. Patient will have to have MRI prior to procedure as his last lumbar MRI was performed in 2016. Patient has expressed understanding of and was in agreement with treatment plan. Given time to ask questions and express concerns. PLAN OF TREATMENT Treatment Notes Assessment Notes Clinical Notes Spondylosis of lumbosacral region without myelopathy o r radiculopathy 70-year-old male in for chronic pain follow-up. Given presenting symptoms recommend diagnostic facet block #2 left side with post procedural follow-up. Patient will have to have MRI prior to procedure as his last lumbar MRI was performed in 2016. Patient has expressed understanding of and was in agreement with treatment plan. Given time to ask questions and express concerns. Treatment Notes Test Name Order Date [facility] MRI Lumbar w/o contrast (cpt 23512) 2020-08-15 Next Appt Details postprocedure Reason:MRI lumbar spine, d iagnostic lumbar facet block #2 left side need hold older for remicade 7 days prior to procedure Provider Name:Huy Gore, 2020-09-16 10:00:00 AM, [address] [place] [address], [phone], Provider Name:Barrera Benson, 2020-10 11:15:00 AM, [address] [place] [address], [address] [place] [address], [place], [address], Follow Up:postprocedureMRI lumbar spine, diagnostic lumbar facet block #2 left side need hold older for remicade 7 days prior to procedure Insurance Providers Payer Name Payer Address Payer Phone Insured Name Patient Relati onship to Insured Coverage Start Date Coverage End Date MEDICARE Part A and B [address] [facility] [id number] TYE CLAUDIO [facility] [address] [facility] [id number] TYE BULLARD
--- OUTSIDE RECORDS SUMMARY | 2020-09-26 06:38 | CCD | Continuity of Care Document ---
Author Author Medardo PARRA Organization Unknown Address [address] [place] [address] [place] [address] Phone [phone] Care Team Providers Care Fish Filleter Name Role Phone Annika ([facility]) AUTM [employer] AUTM [phone] Problems Description No Information Available Social History Type Date Description Comments Sex Unknown Tobacco Use Start: Unknown Never Smoked Cigarettes ETOH Use Occasionally consumes alcohol Tobacco Use Start: Unknown Patient has never smoked Smoking Status Reviewed: 07/10/19 Patient has never smoked Allergies, Adverse Reactions, Alerts Active Allergies Reaction Severity Comments Date Simvastatin 02/21/2018 Inactive Allergies NKDA 11/06/2015 Medications Active Medications SIG Qnty Indications Ordering Provide r Date Azelastine HCL (Ophthalmic) 0.05% Solution 1 drop both eyes twice daily as needed 6ml H10.13 Co jourdan Stark JR., M.D. 05/12/2018 Aspir-[address] Unknown Atenolol 100mg Tablets 1 by mouth every day Unknown Citalopram Hydrobromide 20mg Table ts take one (1) tab daily Unknown Hydrochlorothiazide 25mg Tablets 1 by mouth every day Unknown Novolog 100Unit/ML Solution sliding scale Unknown Lantus 100Unit/ML Solution use as directed Unknown Lisinopril 40mg Tablets 1 by mouth every day Unknown Pantoprazole Sodium 40mg Tablets D R 1 tab by mouth every morning Unknown 0 Crestor Tablets Unknown Remicade 100mg Solution Rec q 5 weeks Unknown Gabapentin 300mg Capsules Unknown Flonase Allergy Relief Childrens Unk nown Jardiance 25mg Tablets Unknown Metformin HCL Unknown Immunizations Description No Information Available Vital Signs Date Vital Result Comment 07/16/2020 9:36am BP Systolic 139 mmHg BP Diastolic 80 mmHg Heart Rate 67 /min Respiratory Rate 20 /min O2 % BldC Oximetry 99 % Body Temperature 98.6 F Weight 239.00 lb Height 70 inches 5'10" BMI (Body Mass Index) 34.3 kg/m2 Pain Level 1 09/11/2019 11:48am BP Systolic 92 mmHg BP Diastolic 58 mmHg Heart Rate 93 /min Respiratory Rate 18 /min O2 % BldC Oximetry 95 % Body Temperature 99.3 F Weight 239.00 lb Height 70 inches 5'10" BMI (Body Mass Index) 34.3 kg/m2 Pain Level 5 Results Description No Information Available Procedures Description No Information Available Medical Devices Description No Information Available Encounters Type Date Location Provider Dx Diagnosis Office Visit 07/16/2020 9:00a [facility] Pepe Parra PKamilaAKamila S70.361A Insect bite (nonvenomous), right thigh, initial encounter W57.xxxA Bit/stung by nonvenom insect & oth nonvenom arthropods, init Assessments Date Code Description Provider 07/16/2020 S70.361A Insect bite (nonvenomous), right thigh, initial encounter Noelle Porter. 07/16/2020 W57.xxxA Bitten or stung by n onvenomous insect and other nonvenomous arthropods, initial encounter Noelle Porter. 06/26/2020 Z20.828 Contact with and (curtis spected) exposure to other viral communicable diseases JULIOCESAR Jack Plan of Treatment 07/16/2020 - Noelle Porter.* S70.361A Insect bite (nonvenomous), right thigh, initial encounter* Comments:* Medial thigh cleaned with alcohol prep pad, Head of tick easily removed with tip of 23 gauge needle Bacitracin and band-aid applied. Discussed signs/symptoms of Lyme Disease and when they occur after tick bite. Will not treat prophylactically given that the tick was likely attached for only a few hours. Return or follow with PCP for any rash, fever, fatigue or joint pains. Tick bite on lateral thigh has no tick parts * W57.xxxA Bitten or stung by nonvenomous insect and other nonvenomous arthropods, initial encounter Functional Status Description No Information Available Mental Status Description No Information Available Referrals Description No Information Available
--- OUTSIDE RECORDS SUMMARY | 2020-09-26 06:38 | CCD ---
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 Active 28311565 Problem Spondylosis of lumbosacral region without myelop athy or radiculopathy M47.817 Active 34992308 Problem Spondylosis of lumbar region without myelopathy or radiculopathy M47.816 Active 97435365 Problem 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 y or radiculopathy M47.814 Active 424498415 Problem Lumbar facet arthropathy M46.96 Active 7234447 08 Problem Spondylosis without myelopathy or radiculopathy, lumbar region M47.816 Active 368502159 Problem Ankylosing spondylitis, unspecified site of spine M45.9 Active 2786897 Problem Myalgia M79.1 Active 17864576 Problem Sacroiliitis, not elsewhere classified M46.1 A ctive 88147406 Problem Lumbosacral spondylosis with radiculopathy M47.27 Active 479675678 Problem Spondylosis 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.815 Active 91732411 ALLERGIES Allergen (clinical drug ingredient) Drug/Non Drug Allergy do cumented on EMR Reaction Allergy Type Onset Date Status atorvastatin Lipitor([facility] Code:[address]-99) muscle pain Drug Allergy Active ENCOUNTERS from 1950 to 2020-07-21 Encounter Location Date Provider Diagnosis [facility] [address] [address] Mar, Barrera Benson Common wart B07.8 and Inflam ed acrochordon L91.8 IMMUNIZATIONS No Information SOCIAL HISTORY Tobacco Use: Social History Observation Description Date Details (start date - stop date) Never Smoker Sex Assigned At : Social History Observation Description Sex Assigned At Unknown Language: Question Answer Notes Languages spoken: Swazi Jainism: Question Answer Notes Jainism 08 Hindu Alcohol Screening: Question Answer Notes Did you [...] FOR REFERRAL No Information VITAL SIGNS Weight 254 lbs Mar, Height 70 in Mar, BMI 36.44 kg/m2 Mar, Blood pressure systolic 132 mm Hg Mar, Blood pressure diastolic 78 mm Hg Mar, MEDICATIONS Medication SIG (Take, Route, Frequency, Duration) Start Date En d Date Status Lantus SoloStar 100 UNIT/ML 60 units Subcutaneous Daily Active Empagliflozin 25 MG 1 tablet Orally Once a day for 30 day(s) Active NovoLog Flexpen 100 UNIT/ML Sliding scale Subcutaneous Active Multi For Him 50+ 1 cap Daily Active Vit D-Vit E-Safflower Oil 1 cap Daily Ac tive Ibuprofen 600 MG 1 tablet with food or milk as needed Ora lly Three times a day Active Ciclopirox 0.77 % 1 application Externally Twi ce a day to feet and back rash for 30 days Active Acetaminophen 325 MG 1 capsule as needed Orally every 4 hrs Active Atenolol 100 MG 1 tablet Orally Once a day Active Citalopram Hydrobromide 20 MG 1 tablet Orally Once a day Active Crestor 20 MG 1 tablet Orally Once a day Active Metformin HCl 500 MG 1 tablet with meals Orally Twice a day Active Pantoprazole Sodium 40 MG 1 tablet Orally Once a day Active Gabapentin 600 MG 1 tablet Orally Q8H TID for 30 day(s) Active Lisinopril 40 MG 1 tablet Orally Once a day Active Hydrochlorothiazide 25 MG 1 tablet in the morning Orally Once a day Active Remicade 100 MG 900 mg Intravenous every 4 weeks Active Aspirin 81 81 MG 1 tablet Orally Once a day Active MiraLax - 1 packet mixed with 8 ounces of fluid Orally Once a da y Active Flonase 50 MCG/DOSE 1 spray in each nostril Nasa lly Once a daily-takes as needed Active PROCEDURES No Information RESULTS No Results REASON FOR VISIT WART REMOVAL MEDICAL (GENERAL) HISTORY Type Description Date Medical History hyperlipidemia Medical History hypertension Medical History diabetes mellitus type 2 Medical History acid reflux Medical History arthritis Medical History Ankylosis Spondylitis/ Arthritis Health Spec - [place] Medical History Back Pain Surgical History left knee surgery Surgical History right foot bunionectomy Hospitalization History Knee Surg Hospitalization History Dehydration at [facility] 09/2019 Goals Section No Information Health Concerns No Information MEDICAL EQUIPMENT No Information MENTAL STATUS No Information FUNCTIONAL STATUS No Information ASSESSMENTS Encounter Date Diagnosis Notes Mar, Inflamed acrochordon (ICD-10 - L91.8) Mar, Common wart (ICD-10 - B07.8) PLAN OF TREATMENT Treatment Notes Assessment Notes Clinical Notes Common wart 1 wart remains on right fift h finger. CPS as below. 50% response.[place] protocol was followed in compliance with [facility] standards. Patient was counseled regarding the indication for treatment as well as the method and expected results to include compromise of the skin barrier, bleeding, scarring/white area, redness at site, painful blisters, lesion recurrence, and pain. Patient was consented to the risks and benefits of the procedure and gave informed consent. Lesion(s) with locations as indicated in the physical examination were treated. Lesion(s) were treated with cantharidi n, podophyllin, salicylic acid combination product using a CTA to apply. Patient was instructed to use Vaseline ointment to the area(s) until healed. Patient tolerated the procedure well and left in stable condition. Pain before and after the procedure were assessed to not be significantly different than baseline. Patient was instructed to wash off the CPS in 1-1.5 hours for non palm and sole sites and 2-3 hours for palm and sole sites using soap, water, and a washcloth.Lot: 12-2019-26 @ 11Exp: 02/27/2020 Inflamed acrochordon The area was cleaned with ch lorhexidine. Small skin tag was removed by scissor excision without anesthesia. The tag was removed with gradle scissors and hemostasis was accomplished with pressure for the small lesions. The patient tolerated the procedure well. Vaseline was placed on the wounds and instructions for wound care were provided. Next Appt Details As scheduled Reason:FBSE Provider Name:Huy Jocelyn Gore, 2020-08-14 10:30:00 AM, [address] [place] [address], [id number], Provider Name:Barrera Benson, 2020-10 11:15:00 AM, [address] [place] [address], [address] [place] [address], [place], [address], Follow Up:As scheduledFBSE Insurance Providers Payer Name Payer Address Payer Phone Insured Name Patient Relati onship to Insured Coverage Start Date Coverage End Date [facility] [address] [facility] [id number] TYE CLAUDIO [facility] [address] [facility] [id number] C TYE HERNANDEZ MEDICARE Part A and B [address] [facility] [phone] TYE CLAUDIO
--- OUTSIDE RECORDS SUMMARY | 2020-09-26 06:38 | CCD | Continuity of Care Document ---
Author Author Medardo FIELDS MD Organization Unknown Address [address] [address] Phone [phone] Care Team Providers Care Nuclear Cardiology Technologist Name Role Phone Dalton Arita AUTM [phone] AUTM Unavailable Problems Active Problems Provider Date Type 2 [...] Start: Unknown Non Smoker Smoking Status Reviewed: 10/17/19 Non Smoker Allergies, Adverse Reactions, Alerts Active Allergies Reaction Severity Comments Date Lipitor 01/04/2015 Inactive Allergies NKDA 07/18/2009 Medications Active Medications SIG Qnty Indications Ordering Provide r Date Ofloxacin (Otic) 0.3% Solution 5 drops to left ear twice a day x 7 days 1units H72.02 Nba Fields MD CPAP [facility] Audie [...] CPT Code Status Date Vaccine Lot # 60741 Given 06/19/2016 Influenza Virus Split 3 Yrs And Above For Intramuscular Use 99694 Given 07/03/2015 Influenza Virus Split 3 Yrs And Above For Intramuscular Use Q2036 Given 06/15/2012 Influenza Vaccine 3 Years Of Age Or Older (Flulaval) Q2036 Given 07/15/2011 Influenza Vaccine 3 Years Of Age Or Older (Flulaval) 40122 Given 06/14/2008 Influenza Vaccine Vital Signs Date Vital Result Comment 07/17/2020 10:27am Height 70 inches 5'10" Weight 243.00 lb BMI (Body Mass Index) 34.9 kg/m2 [place] Body Weight 166 lb Weight 110.225 kg 12/13/2019 9:02am Height 70 inches 5'10" Weight 245.00 lb BMI (Body Mass Index) 35.1 kg/m2 [place] Body Weight 166 lb Weight 111.132 kg Results Description No Information Available Procedures Description No Information Available Medical Devices Description No Information Available Encounters Description No Information Available Assessments Date Code Description Provider 07/17/2020 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 L TM perforiton dry. Functional Status Functional Condition Comment Date Status C-Pap Active Mental Status Description No Information Available Referrals Description No Information Available
--- OUTSIDE RECORDS SUMMARY | 2020-09-26 06:38 | CCD | Continuity of Care Document ---
Author Author Medardo PARRA Organization Unknown Address [address] [place] [address] [place] [address] Phone [phone] Care Team Providers Care Abstract Maker Name Role Phone Annika ([facility]) AUTM [employer] AUTM [phone] Problems Description No Information Available Social History [...]
--- OUTSIDE RECORDS SUMMARY | 2020-09-26 06:39 | CCD ---
Author Author [facility] Organization [facility] Address Unknown Phone Unavailable Care Team Providers Care Research Recruiter Name Role Phone JUSTIN FERMIN MD Unavailable Unavailable JUSTIN FERMIN MD Unavailable Unavailable JUSTIN FERMIN MD Unavailable Unavailable JUSTIN FERMIN MD Unavailable Unavailable JUSTIN FERMIN MD Unavailable Unavailable JUSTIN FERMIN MD Unavailable Unavailable JUSTIN FERMIN MD Unavailable Unavailable [facility], [id number], [phone] Unavailable Jyoti vailable Ruby FIELDS MD Unavailable Unavailable Ruby FIELDS MD Unavailable Unavailable Ruby FIELDS MD Unavailable Unavailable Ruby FIELDS MD Unavailable Unavailable Ruby FIELDS MD Unavailable Unavailable Ruby FIELDS MD Unavailable Unavailable Ruby FIELDS MD Unavailable Unavailable Ruby FIELDS MD Unavailable Unavailable Ruby FIELDS MD Unavailable Unavailable Ruby FIELDS MD Unavailable Unavailable Ruby FIELDS MD Unavailable Unavailable Ruby FIELDS MD Unavailable Unavailable Ruby FIELDS MD Unavailable Unavailable Ruby FIELDS MD Unavailable Unavailable Ruby FIELDS MD Unavailable Unavailable Ruby FIELDS MD Unavailable Unavailable Ruby FIELDS MD Unavailable Unavailable Ruby FIELDS MD Unavailable Unavailable Ruby FIELDS MD Unavailable Unavailable Ruby FIELDS MD Unavailable Unavailable Ruby FIELDS MD Unavailable Unavailable Ruby FIELDS MD Unavailable Unavailable Ruby FIELDS MD Unavailable Unavailable Ruby FIELDS MD Unavailable Unavailable Ruby FIELDS MD Unavailable Unavailable Ruby FIELDS MD Unavailable Unavailable Ruby FIELDS MD Unavailable Unavailable Ruby FIELDS MD Unavailable Unavailable Ruby FIELDS MD Unavailable Unavailable Ruby FIELDS MD Unavailable Unavailable Ruby FIELDS MD Unavailable Unavailable Ruby FIELDS MD Unavailable Unavailable Ruby FIELDS MD Unavailable Unavailable Ruby FIELDS MD Unavailable Unavailable Ruby FIELDS MD Unavailable Unavailable Carguello, J Carmen DO Unavailable Unavailable Carguello, J Carmen DO Unavailable Unavailable Carguello, J Carmen DO Unavailable Unavailable Carguello, J Carmen DO Unavailable Unavailable Carguello, J Carmen DO Unavailable Unavailable Carguello J Carmen DO Unavailable Unavailable Carguello J Carmen DO Unavailable Unavailable Carguello J Carmen DO Unavailable Unavailable Carguello, J Carmen DO Unavailable Unavailable Carguello, J Carmen DO Unavailable Unavailable Carguello, J Carmen DO Unavailable Unavailable Carguello J Carmen DO Unavailable Unavailable Carguello J Carmen DO Unavailable Unavailable Carguello J Carmen DO Unavailable Unavailable Carguello J Carmen DO Unavailable Unavailable Carguello J Carmen DO Unavailable Unavailable Carguello, J Carmen DO Unavailable Unavailable Carguello, J Carmen DO Unavailable Unavailable Carguello, J Carmen DO Unavailable Unavailable Carguello, J Carmen DO Unavailable Unavailable Carguello J Carmen DO Unavailable Unavailable Carguello, J Carmen DO Unavailable Unavailable Carguello, J Carmen DO Unavailable Unavailable Carguello, J Carmen DO Unavailable Unavailable Carguello J Carmen DO Unavailable Unavailable Carguello J Carmen DO Unavailable Unavailable Carguello J Carmen DO Unavailable Unavailable Carguello J Carmen DO Unavailable Unavailable Carguello, J Carmen DO Unavailable Unavailable Carguello, J Carmen DO Unavailable Unavailable Carguello, J Carmen DO Unavailable Unavailable Carguello J Carmen DO Unavailable Unavailable Carguello J Carmen DO Unavailable Unavailable Carguello J Carmen DO Unavailable Unavailable Carguello, J Carmen DO Unavailable Unavailable Carguello, J Carmen DO Unavailable Unavailable Carguello J Carmen DO Unavailable Unavailable Carguello J Carmen DO Unavailable Unavailable Carguello J Carmen DO Unavailable Unavailable Carguello J Carmen DO Unavailable Unavailable Carguello J Carmen DO Unavailable Unavailable Carguello J Carmen DO Unavailable Unavailable Carguello J Carmen DO Unavailable Unavailable Carguello J Carmen DO Unavailable Unavailable Carguello J Carmen DO Unavailable Unavailable Carguello J Carmen DO Unavailable Unavailable Carguello, J Carmen DO Unavailable Unavailable Carguello, J Carmen DO Unavailable Unavailable Carguello, J Carmen DO Unavailable Unavailable Carguello, J Carmen DO Unavailable Unavailable Carguello J Carmen DO Unavailable Unavailable Carguello J Carmen DO Unavailable Unavailable Carguello, J Carmen DO Unavailable Unavailable Carguello, J Carmen DO Unavailable Unavailable Carguello J Carmen DO Unavailable Unavailable Carguello J Carmen DO Unavailable Unavailable Carguello, J Carmen DO Unavailable Unavailable Carguello, J Carmen DO Unavailable Unavailable Carguello J Carmen DO Unavailable Unavailable Carguello, J Carmen DO Unavailable Unavailable Carguello, J Carmen DO Unavailable Unavailable Carguello J Carmen DO Unavailable Unavailable Carguello J Carmen DO Unavailable Unavailable Carguello J Carmen DO Unavailable Unavailable Carguello J Carmen DO Unavailable Unavailable Carguello J Carmen DO Unavailable Unavailable Carguello J Carmen DO Unavailable Unavailable Carguello J Carmen DO Unavailable Unavailable Carguello J Carmen DO Unavailable Unavailable Carguello J Carmen DO Unavailable Unavailable Carguello J Carmen DO Unavailable Unavailable Carguello J Carmen DO Unavailable Unavailable Carguello, J Carmen DO Unavailable Unavailable Carguello J Carmen DO Unavailable Unavailable Carguello J Carmen DO Unavailable Unavailable Carguello J Carmen DO Unavailable Unavailable Carguello J Carmen DO Unavailable Unavailable Carguello J Carmen DO Unavailable Unavailable Carguello J Carmen DO Unavailable Unavailable Carguello J Carmen DO Unavailable Unavailable Carguello J Carmen DO Unavailable Unavailable Carguello J Carmen DO Unavailable Unavailable Carguello J Carmen DO Unavailable Unavailable PHYSICIAN, PHYSICIAN ER Unavailable Unavailable Carguello J Carmen DO Unavailable Unavailable Carguello J Carmen DO Unavailable Unavailable Carguello J Carmen DO Unavailable Unavailable Carguello J Carmen DO Unavailable Unavailable Carguello J Carmen DO Unavailable Unavailable Carguello, J Carmen DO Unavailable Unavailable Carguello J Carmen DO Unavailable Unavailable Carguello J Carmen DO Unavailable Unavailable Carguello J Carmen DO Unavailable Unavailable Carguello, J Carmen DO Unavailable Unavailable Carguello, J Carmen DO Unavailable Unavailable Carguello J Carmen DO Unavailable Unavailable Carguello, J Carmen DO Unavailable Unavailable Carguello, J Carmen DO Unavailable Unavailable Carguello, J Carmen DO Unavailable Unavailable Carguello, J Carmen DO Unavailable Unavailable Carguello, J Carmen DO Unavailable Unavailable Carguello, J Carmen DO Unavailable Unavailable Carguello, J Carmen DO Unavailable Unavailable Carguello, J Carmen DO Unavailable Unavailable Carguello, J Carmen DO Unavailable Unavailable Carguello, J Carmen DO Unavailable Unavailable Carguello, J Carmen DO Unavailable Unavailable Carguello, J Carmen DO Unavailable Unavailable Carguello, J Carmen DO Unavailable Unavailable Carguello, J Carmen DO Unavailable Unavailable Carguello, J Carmen DO Unavailable Unavailable Carguello, J Carmen DO Unavailable Unavailable Carguello J Carmen DO Unavailable Unavailable Carguello J Carmen DO Unavailable Unavailable Carguello J Carmen DO Unavailable Unavailable Carguello J Carmen DO Unavailable Unavailable Carguello J Carmen DO Unavailable Unavailable Carguello J Carmen DO Unavailable Unavailable Carguello, J Carmen DO Unavailable Unavailable Carguello J Carmen DO Unavailable Unavailable Carguello, J Carmen DO Unavailable Unavailable Carguello, J Carmen DO Unavailable Unavailable Carguello, J Carmen DO Unavailable Unavailable Carguello J Carmen DO Unavailable Unavailable Carguello, J Carmen DO Unavailable Unavailable Carguello J Carmen DO Unavailable Unavailable Carguello J Carmen DO Unavailable Unavailable Carguello J Carmen DO Unavailable Unavailable Carguello J Carmen DO Unavailable Unavailable Carguello J Carmen DO Unavailable Unavailable Carguello J Carmen DO Unavailable Unavailable Carguello J Carmen DO Unavailable Unavailable Carguello, J Carmen DO Unavailable Unavailable Carguello, J Carmen DO Unavailable Unavailable Carguello J Carmen DO Unavailable Unavailable Carguello J Carmen DO Unavailable Unavailable Carguello J Carmen DO Unavailable Unavailable Carguello J Carmen DO Unavailable Unavailable Carguello J Carmen DO Unavailable Unavailable Carguello, J Carmen DO Unavailable Unavailable Carguello, J Carmen DO Unavailable Unavailable Carguello, J Carmen DO Unavailable Unavailable Carguello, J Carmen DO Unavailable Unavailable Carguello, J Carmen DO Unavailable Unavailable Carguello, J Cramen DO Unavailable Unavailable Carguello, J Carmen DO Unavailable Unavailable Carguello, J Carmen DO Unavailable Unavailable Carguello, J Carmen DO Unavailable Unavailable Carguello, J Carmen DO Unavailable Unavailable Carguello, J Carmen DO Unavailable Unavailable Carguello, J Carmen DO Unavailable Unavailable Carguello, J Carmen DO Unavailable Unavailable Carguello, J Carmen DO Unavailable Unavailable Carguello, J Carmen DO Unavailable Unavailable Carguello, J Carmen DO Unavailable Unavailable Carguello, J Carmen DO Unavailable Unavailable Carguello, J Carmen DO Unavailable Unavailable Carguello, J Carmen DO Unavailable Unavailable Carguello, J Carmen DO Unavailable Unavailable Carguello, J Carmen DO Unavailable Unavailable Carguello, J Carmen DO Unavailable Unavailable Carguello, J Carmen DO Unavailable Unavailable Carguello, J Carmen DO Unavailable Unavailable Carguello, J Carmen DO Unavailable Unavailable Carguello, J Carmen DO Unavailable Unavailable Carguello, J Carmen DO Unavailable Unavailable Carguello, J Carmen DO Unavailable Unavailable Goodwin, Lupillo Karlo DO Unavailable Unavailable Goodwin, Lupillo Karlo DO Unavailable Unavailable Goodwin, Lupillo Karlo DO Unavailable Unavailable Goodwin, Lupillo Karlo DO Unavailable Unavailable Goodwin, Lupillo Karlo DO Unavailable Unavailable Goodwin, Lupillo Karlo DO Unavailable Unavailable Goodwin, Lupillo Karlo DO Unavailable Unavailable Goodwin, Lupillo Karlo DO Unavailable Unavailable Goodwin, Lupillo Karlo DO Unavailable Unavailable Goodwin, Lupillo Karlo DO Unavailable Unavailable Goodwin, Lupillo Karlo DO Unavailable Unavailable Goodwin, Lupillo Karlo DO Unavailable Unavailable Goodwin, Lupillo Karlo DO Unavailable Unavailable Goodwin, Lupillo Karlo DO Unavailable Unavailable Goodwin, Lupillo Karlo DO Unavailable Unavailable Goodwin, Lupillo Karlo DO Unavailable Unavailable Goodwin, Lupillo Karlo DO Unavailable Unavailable KEZIA PRINCE MD Unavailable Unavailable KEZIA PRINCE MD Unavailable Unavailable KEZIA PRINCE MD Unavailable Unavailable KEZIA PRINCE MD Unavailable Unavailable KEZIA PRINCE MD Unavailable Unavailable KEZIA PRINCE MD Unavailable Unavailable KEZIA PRINCE MD Unavailable Unavailable KHAIRALLAH, RAMZI MD Unavailable Unavailable KHAIRALLAH, RAMZI MD Unavailable Unavailable KHAIRALLAH, RAMZI MD Unavailable Unavailable KHAIRALLAH, RAMZI MD Unavailable Unavailable KHAIRALLAH, RAMZI MD Unavailable Unavailable KHAIRALLAH, RAMZI MD Unavailable Unavailable KHAIRALLAH, RAMZI MD Unavailable Unavailable KHAIRALLAH, RAMZI MD Unavailable Unavailable KHAIRALLAH, RAMZI MD Unavailable Unavailable KHAIRALLAH, RAMZI MD Unavailable Unavailable KHAIRALLAH, RAMZI MD Unavailable Unavailable KHAIRALLAH, RAMZI MD Unavailable Unavailable KHAIRALLAH, RAMZI MD Unavailable Unavailable KHAIRALLAH, RAMZI MD Unavailable Unavailable KHAIRALLAH, RAMZI MD Unavailable Unavailable KHAIRALLAH, RAMZI MD Unavailable Unavailable KHAIRALLAH, RAMZI MD Unavailable Unavailable KHAIRALLAH, RAMZI MD Unavailable Unavailable KHAIRALLAH, RAMZI MD Unavailable Unavailable KHAIRALLAH, RAMZI MD Unavailable Unavailable KHAIRALLAH, RAMZI MD Unavailable Unavailable KHAIRALLAH, RAMZI MD Unavailable Unavailable KHAIRALLAH, RAMZI MD Unavailable Unavailable KHAIRALLAH, RAMZI MD Unavailable Unavailable KHAIRALLAH, RAMZI MD Unavailable Unavailable KHAIRALLAH, RAMZI MD Unavailable Unavailable KHAIRALLAH, RAMZI MD Unavailable Unavailable KHAIRALLAH, RAMZI MD Unavailable Unavailable KHAIRALLAH, RAMZI MD Unavailable Unavailable KHAIRALLAH, RAMZI MD Unavailable Unavailable KHAIRALLAH, RAMZI MD Unavailable Unavailable KHAIRALLAH, RAMZI MD Unavailable Unavailable KHAIRALLAH, RAMZI MD Unavailable Unavailable KHAIRALLAH, RAMZI MD Unavailable Unavailable KHAIRALLAH, RAMZI MD Unavailable Unavailable KHAIRALLAH, RAMZI MD Unavailable Unavailable KHAIRALLAH, RAMZI MD Unavailable Unavailable KHAIRALLAH, RAMZI MD Unavailable Unavailable KHAIRALLAH, RAMZI MD Unavailable Unavailable KHAIRALLAH, RAMZI MD Unavailable Unavailable KHAIRALLAH, RAMZI MD Unavailable Unavailable KHAIRALLAH, RAMZI MD Unavailable Unavailable KHAIRALLAH, RAMZI MD Unavailable Unavailable KHAIRALLAH, RAMZI MD Unavailable Unavailable KHAIRALLAH, RAMZI MD Unavailable Unavailable KHAIRALLAH, RAMZI MD Unavailable Unavailable KHAIRALLAH, RAMZI MD Unavailable Unavailable KHAIRALLAH, RAMZI MD Unavailable Unavailable KHAIRALLAH, RAMZI MD Unavailable Unavailable KHAIRALLAH, RAMZI MD Unavailable Unavailable KHAIRALLAH, RAMZI MD Unavailable Unavailable KHAIRALLAH, RAMZI MD Unavailable Unavailable KHAIRALLAH, RAMZI MD Unavailable Unavailable KHAIRALLAH, RAMZI MD Unavailable Unavailable KHAIRALLAH, RAMZI MD Unavailable Unavailable KHAIRALLAH, RAMZI MD Unavailable Unavailable KHAIRALLAH, RAMZI MD Unavailable Unavailable KHAIRALLAH, RAMZI MD Unavailable Unavailable KHAIRALLAH, RAMZI MD Unavailable Unavailable KHAIRALLAH, RAMZI MD Unavailable Unavailable KHAIRALLAH, RAMZI MD Unavailable Unavailable KHAIRALLAH, RAMZI MD Unavailable Unavailable KHAIRALLAH, RAMZI MD Unavailable Unavailable KHAIRALLAH, RAMZI MD Unavailable Unavailable KHAIRALLAH, RAMZI MD Unavailable Unavailable KHAIRALLAH, RAMZI MD Unavailable Unavailable KHAIRALLAH, RAMZI MD Unavailable Unavailable KHAIRALLAH, RAMZI MD Unavailable Unavailable KHAIRALLAH, RAMZI MD Unavailable Unavailable KHAIRALLAH, RAMZI MD Unavailable Unavailable KHAIRALLAH, RAMZI MD Unavailable Unavailable KHAIRALLAH, RAMZI MD Unavailable Unavailable KHAIRALLAH, RAMZI MD Unavailable Unavailable KHAIRALLAH, RAMZI MD Unavailable Unavailable KHAIRALLAH, RAMWATSON MD Unavailable Unavailable KHAIRALLAH, RAMZI MD Unavailable Unavailable KHAIRALLAH, RAMZI MD Unavailable Unavailable KHAIRALLAH, RAMZI MD Unavailable Unavailable KHAIRALLAH, RAMWATSON MD Unavailable Unavailable Carguello, J Carmen DO Unavailable Unavailable Carguello, J Carmen DO Unavailable Unavailable Carguello, J Carmen DO Unavailable Unavailable Carguello, J Carmen DO Unavailable Unavailable Carguello, J Carmen DO Unavailable Unavailable Carguello, J Carmen DO Unavailable Unavailable Carguello, J Carmen DO Unavailable Unavailable Carguello, J Carmen DO Unavailable Unavailable Carguello, J Carmen DO Unavailable Unavailable Carguello, J Carmen DO Unavailable Unavailable Carguello, J Carmen DO Unavailable Unavailable Carguello, J Carmen DO Unavailable Unavailable Carguello, J Carmen DO Unavailable Unavailable Carguello, J Carmen DO Unavailable Unavailable Carguello, J Carmen DO Unavailable Unavailable Carguello, J Carmen DO Unavailable Unavailable Carguello, J Carmen DO Unavailable Unavailable Carguello, J Carmen DO Unavailable Unavailable Carguello, J Carmen DO Unavailable Unavailable Carguello, J Carmen DO Unavailable Unavailable Carguello, J Carmen DO Unavailable Unavailable Carguello, J Carmen DO Unavailable Unavailable Carguello J Carmen DO Unavailable Unavailable Carguello J Carmen DO Unavailable Unavailable Carguello J Carmen DO Unavailable Unavailable Carguello J Carmen DO Unavailable Unavailable Carguello J Carmen DO Unavailable Unavailable Carguello J Carmen DO Unavailable Unavailable Carguello, J Carmen DO Unavailable Unavailable Carguello, J Carmen DO Unavailable Unavailable Carguello, J Carmen DO Unavailable Unavailable Carguello, J Carmen DO Unavailable Unavailable Carguello J Carmen DO Unavailable Unavailable Carguello J Carmen DO Unavailable Unavailable Carguello, J Carmen DO Unavailable Unavailable Carguello, J Carmen DO Unavailable Unavailable Carguello, J Carmen DO Unavailable Unavailable Carguello J Carmen DO Unavailable Unavailable Carguello, J Carmen DO Unavailable Unavailable Carguello, J Carmen DO Unavailable Unavailable Carguello J Carmen DO Unavailable Unavailable Carguello, J Carmen DO Unavailable Unavailable Carguello, J Carmen DO Unavailable Unavailable Carguello J Carmen DO Unavailable Unavailable Carguello J Carmen DO Unavailable Unavailable Carguello J Carmen DO Unavailable Unavailable Carguello J Carmen DO Unavailable Unavailable Carguello J Carmen DO Unavailable Unavailable Carguello J Carmen DO Unavailable Unavailable Carguello J Carmen DO Unavailable Unavailable Carguello J Carmen DO Unavailable Unavailable Carguello J Carmen DO Unavailable Unavailable Carguello J Carmen DO Unavailable Unavailable Carguello J Carmen DO Unavailable Unavailable Carguello J Carmen DO Unavailable Unavailable Carguello J Carmen DO Unavailable Unavailable Carguello J Carmen DO Unavailable Unavailable Carguello J Carmen DO Unavailable Unavailable Carguello J Carmen DO Unavailable Unavailable Carguello J Carmen DO Unavailable Unavailable Carguello J Carmen DO Unavailable Unavailable Carguello J Carmen DO Unavailable Unavailable Carguello J Carmen DO Unavailable Unavailable Carguello J Carmen DO Unavailable Unavailable Carguello J Carmen DO Unavailable Unavailable Carguello J Carmen DO Unavailable Unavailable Carguello J Carmen DO Unavailable Unavailable Carguello J Carmen DO Unavailable Unavailable Carguello J Carmen DO Unavailable Unavailable Carguello J Carmen DO Unavailable Unavailable Carguello J Carmen DO Unavailable Unavailable Carguello J Carmen DO Unavailable Unavailable Carguello J Carmen DO Unavailable Unavailable Carguello J Carmen DO Unavailable Unavailable Carguello J Carmen DO Unavailable Unavailable Carguello J Carmen DO Unavailable Unavailable Carguello J Carmen DO Unavailable Unavailable Carguello J Carmen DO Unavailable Unavailable Carguello, J Carmen DO Unavailable Unavailable Carguello, J Carmen DO Unavailable Unavailable Carguello, J Carmen DO Unavailable Unavailable Carguello, J Carmen DO Unavailable Unavailable Carguello J Carmen DO Unavailable Unavailable Carguello J Carmen DO Unavailable Unavailable Carguello, J Carmen DO Unavailable Unavailable Carguello, J Carmen DO Unavailable Unavailable Carguello, J Carmen DO Unavailable Unavailable Carguello J Carmen DO Unavailable Unavailable Carguello, J Carmen DO Unavailable Unavailable Carguello, J Carmen DO Unavailable Unavailable Carguello J Carmen DO Unavailable Unavailable Carguello, J Carmen DO Unavailable Unavailable Carguello, J Carmen DO Unavailable Unavailable Carguello J Carmen DO Unavailable Unavailable Carguello J Carmen DO Unavailable Unavailable Carguello J Carmen DO Unavailable Unavailable Carguello J Carmen DO Unavailable Unavailable Carguello J Carmen DO Unavailable Unavailable Carguello J Carmen DO Unavailable Unavailable Carguello J Carmen DO Unavailable Unavailable Carguello J Carmen DO Unavailable Unavailable Carguello J Carmen DO Unavailable Unavailable Carguello J Carmen DO Unavailable Unavailable Carguello J Carmen DO Unavailable Unavailable Carguello J Carmen DO Unavailable Unavailable Carguello J Carmen DO Unavailable Unavailable Carguello J Carmen DO Unavailable Unavailable Carguello J Carmen DO Unavailable Unavailable Carguello J Carmen DO Unavailable Unavailable Carguello J Carmen DO Unavailable Unavailable Carguello J Carmen DO Unavailable Unavailable Carguello J Carmen DO Unavailable Unavailable Carguello J Carmen DO Unavailable Unavailable Carguello J Carmen DO Unavailable Unavailable Carguello J Carmen DO Unavailable Unavailable Carguello J Carmen DO Unavailable Unavailable Carguello J Carmen DO Unavailable Unavailable Carguello J Carmen DO Unavailable Unavailable Carguello J Carmen DO Unavailable Unavailable Carguello J Carmen DO Unavailable Unavailable Carguello J Carmen DO Unavailable Unavailable Carguello J Carmen DO Unavailable Unavailable Carguello J Carmen DO Unavailable Unavailable Carguello, J Carmen DO Unavailable Unavailable Carguello J Carmen DO Unavailable Unavailable Carguello J Carmen DO Unavailable Unavailable Carguello J Carmen DO Unavailable Unavailable Carguello, J Carmen DO Unavailable Unavailable Carguello, J Carmen DO Unavailable Unavailable Carguello, J Carmen DO Unavailable Unavailable Carguello, J Carmen DO Unavailable Unavailable Carguello, J Carmen DO Unavailable Unavailable Carguello J Carmen DO Unavailable Unavailable Carguello, J Carmen DO Unavailable Unavailable Carguello, J Carmen DO Unavailable Unavailable Carguello, J Carmen DO Unavailable Unavailable Carguello, J Carmen DO Unavailable Unavailable Carguello, J Carmen DO Unavailable Unavailable Carguello, J Carmen DO Unavailable Unavailable Carguello, J Carmen DO Unavailable Unavailable Carguello J Carmen DO Unavailable Unavailable Carguello, J Carmen DO Unavailable Unavailable Carguello, J Carmen DO Unavailable Unavailable Carguello J Carmen DO Unavailable Unavailable Carguello J Carmen DO Unavailable Unavailable Carguello J Carmen DO Unavailable Unavailable Carguello J Carmen DO Unavailable Unavailable Carguello J Carmen DO Unavailable Unavailable Carguello J Carmen DO Unavailable Unavailable Carguello J Carmen DO Unavailable Unavailable Carguello, J Carmen DO Unavailable Unavailable Carguello J Carmen DO Unavailable Unavailable Carguello J Carmen DO Unavailable Unavailable Carguello J Carmen DO Unavailable Unavailable Carguello, J Carmen DO Unavailable Unavailable Carguello J Carmen DO Unavailable Unavailable Carguello J Carmen DO Unavailable Unavailable Carguello J Carmen DO Unavailable Unavailable Carguello J Carmen DO Unavailable Unavailable Carguello J Carmen DO Unavailable Unavailable Carguello J Carmen DO Unavailable Unavailable Carguello, J Carmen DO Unavailable Unavailable Carguello J Carmen DO Unavailable Unavailable Carguello, J Carmen DO Unavailable Unavailable Carguello J Carmen DO Unavailable Unavailable Carguello, J Carmen DO Unavailable Unavailable Aicha Hadley MD Unavailable Unavailable Aicha Hadley MD Unavailable Unavailable Aicha Hadley MD Unavailable Unavailable Aicha Hadley MD Unavailable Unavailable Aicha Hadley MD Unavailable Unavailable Aicha Hadley MD Unavailable Unavailable Abdulky, Aicha MD Unavailable Unavailable Abdulky, Aicha MD Unavailable Unavailable Abdulky, Aicha MD Unavailable Unavailable Abdulky, Aicha MD Unavailable Unavailable Abdulky, Aicha MD Unavailable Unavailable Abdulky, Aicha MD Unavailable Unavailable Abdulky, Aicha MD Unavailable Unavailable Abdulky, Aicha MD Unavailable Unavailable Abdulky, Aicha MD Unavailable Unavailable Abdulky, Aicha MD Unavailable Unavailable Abdulky, Aicha MD Unavailable Unavailable Abdulky, Aicha MD Unavailable Unavailable Abdulky, Aicha MD Unavailable Unavailable Abdulky, Aicha MD Unavailable Unavailable Abdulky, Aicha MD Unavailable Unavailable Abdulky, Aicha MD Unavailable Unavailable Abdulky, Aicha MD Unavailable Unavailable Abdulky, Aicha MD Unavailable Unavailable Abdulky, Aicha MD Unavailable Unavailable Abdulky, Aicha MD Unavailable Unavailable Abdulky, Aicha MD Unavailable Unavailable Abdulky, Aicha MD Unavailable Unavailable Abdulky, Aicha MD Unavailable Unavailable Abdulky, Aicha MD Unavailable Unavailable Abdulky, Aicha MD Unavailable Unavailable Abdulky, Aicha MD Unavailable Unavailable Abdulky, Aicha MD Unavailable Unavailable Abdulky, Aicha MD Unavailable Unavailable Abdulky, Aicha MD Unavailable Unavailable Abdulky, Aicha MD Unavailable Unavailable Abdulky, Aicha MD Unavailable Unavailable Abdulky, Aicha MD Unavailable Unavailable Abdulky, Aicha MD Unavailable Unavailable Abdulky, Aicha MD Unavailable Unavailable Abdulky, Aicha MD Unavailable Unavailable Abdulky, Aicha MD Unavailable Unavailable Abdulky, Aicha MD Unavailable Unavailable Abdulky, Aicha MD Unavailable Unavailable Abdulky, Aicha MD Unavailable Unavailable Abdulky, Aicha MD Unavailable Unavailable Abdulky, Aicha MD Unavailable Unavailable Abdulky, Aicha MD Unavailable Unavailable Abdulky, Aicha MD Unavailable Unavailable Abdulky, Aicha MD Unavailable Unavailable Abdulky, Aicha MD Unavailable Unavailable Abdulky, Aicha MD Unavailable Unavailable Abdulky, Aicha MD Unavailable Unavailable Abdulky, Aicha MD Unavailable Unavailable Abdulky, Aicha MD Unavailable Unavailable Abdulky, Aicha MD Unavailable Unavailable Abdulky, Aicha MD Unavailable Unavailable Abdulky, Aicha MD Unavailable Unavailable Abdulky, Aicha MD Unavailable Unavailable Abdulky, Aicha MD Unavailable Unavailable Abdulky, Aicha MD Unavailable Unavailable Abdulky, Aicha MD Unavailable Unavailable Abdulky, Aicha MD Unavailable Unavailable Abdulky, Aicha MD Unavailable Unavailable Abdulky, Aicha MD Unavailable Unavailable Abdulky, Aicha MD Unavailable Unavailable Abdulky, Aicha MD Unavailable Unavailable Abdulky, Aicha MD Unavailable Unavailable Abdulky, Aicha MD Unavailable Unavailable Abdulky, Aicha MD Unavailable Unavailable Abdulky, Aicha MD Unavailable Unavailable Abdulky, Aicha MD Unavailable Unavailable Abdulky, Aicha MD Unavailable Unavailable Abdulky, Aicha CHIN Unavailable Unavailable Abdulky, Aicha MD Unavailable Unavailable Abdulky, Aicha MD Unavailable Unavailable Abdulky, Aicha MD Unavailable Unavailable Abdulky, Aicha MD Unavailable Unavailable Abdulky, Aicha CHIN Unavailable Unavailable Abdulky, Aicha MD Unavailable Unavailable Abdulky, Aicha MD Unavailable Unavailable Abdulky, Aicha MD Unavailable Unavailable Abdulky, Aicha MD Unavailable Unavailable Abdulky, Aicha MD Unavailable Unavailable Abdulky, Aicha MD Unavailable Unavailable Abdulky, Aicha MD Unavailable Unavailable Abdulky, Aicha MD Unavailable Unavailable Abdulky, Aicha MD Unavailable Unavailable Abdulky, Aicha MD Unavailable Unavailable Abdulky, Aicha MD Unavailable Unavailable Abdulky, Aicha MD Unavailable Unavailable Abdulky, Aicha MD Unavailable Unavailable Abdulky, Aicha MD Unavailable Unavailable Abdulky, Aicha CHIN Unavailable Unavailable Abdulky, Aicha MD Unavailable Unavailable Abdulky, Aicha MD Unavailable Unavailable Abdulky, Aicha CHIN Unavailable Unavailable Abdulky, Aicha MD Unavailable Unavailable Abdulky, Aicha MD Unavailable Unavailable Kevin Carpenter MD Unavailable Unavailable Kevin Carpenter MD Unavailable Unavailable Kevin Carpenter MD Unavailable Unavailable Kevin Carpenter MD Unavailable Unavailable Kevin Carpenter MD Unavailable Unavailable Kevin Carpenter MD Unavailable Unavailable Kevin Carpenter MD Unavailable Unavailable Kevin Carpenter MD Unavailable Unavailable Kevin Carpenter MD Unavailable Unavailable Kevin Carpenter MD Unavailable Unavailable Kevin Carpenter MD Unavailable Unavailable Kevin Carpenter MD Unavailable Unavailable Kevin Carpenter MD Unavailable Unavailable Kevin Carpenter MD Unavailable Unavailable Kevin Carpenter MD Unavailable Unavailable Kevin Carpenter MD Unavailable Unavailable Kevin Carpenter MD Unavailable Unavailable Kevin Carpenter MD Unavailable Unavailable Kevin Carpenter MD Unavailable Unavailable Kevin Carpenter MD Unavailable Unavailable Kevin Carpenter MD Unavailable Unavailable Kevin Carpenter MD Unavailable Unavailable Kevin Carpenter MD Unavailable Unavailable Kevin Carpenter MD Unavailable Unavailable Kevin Carpenter MD Unavailable Unavailable Kevin Carpenter MD Unavailable Unavailable Kevin Carpenter MD Unavailable Unavailable Kevin Carpenter MD Unavailable Unavailable Kevin Carpenter MD Unavailable Unavailable Kevin Carpenter MD Unavailable Unavailable Kevin Carpentre MD Unavailable Unavailable Kevin Carpenter MD Unavailable Unavailable Kevin Carpenter MD Unavailable Unavailable Kevin Carpenter MD Unavailable Unavailable Kevin Carpenter MD Unavailable Unavailable Kevin Carpenter MD Unavailable Unavailable Kevin Carpenter MD Unavailable Unavailable Kevin Carpenter MD Unavailable Unavailable Carpenter Kevin Audie MD Unavailable Unavailable Kevin Carpenter MD Unavailable Unavailable Kevin Carpenter MD Unavailable Unavailable Kevin Carpenter MD Unavailable Unavailable Kevin Carpenter MD Unavailable Unavailable Kevin Carpenter MD Unavailable Unavailable Kevin Carpenter MD Unavailable Unavailable Kevin Carpenter MD Unavailable Unavailable Kevin Carpenter MD Unavailable Unavailable Kevin Carpenter MD Unavailable Unavailable Kevin Carpenter MD Unavailable Unavailable Kevin Carpenter MD Unavailable Unavailable CarpenterKevin MD Unavailable Unavailable Machovec, B Kusum PA-C Unavailable Unavailable Machovec, B Kusum PA-C Unavailable Unavailable Machovec, B Kusum PA-C Unavailable Unavailable Machovec, B Kusum PA-C Unavailable Unavailable Machovec, B Kusum PA-C Unavailable Unavailable Machovec, B Kusum PA-C Unavailable Unavailable Machovec, B Kusum PA-C Unavailable Unavailable Machovec, B Kusum PA-C Unavailable Unavailable Machovec, B Kusum PA-C Unavailable Unavailable Machovec, B Kusum PA-C Unavailable Unavailable Machovec, B Kusum PA-C Unavailable Unavailable Machovec, B Kusum PA-C Unavailable Unavailable Machovec, B Kusum PA-C Unavailable Unavailable Machovec, B Kusum PA-C Unavailable Unavailable Machovec, B Kusum PA-C Unavailable Unavailable Machovec, B Kusum PA-C Unavailable Unavailable Machovec, B Kusum PA-C Unavailable Unavailable Machovec, B Kusum PA-C Unavailable Unavailable Machovec, B Kusum PA-C Unavailable Unavailable Machovec, B Kusum PA-C Unavailable Unavailable Machovec, B Kusum PA-C Unavailable Unavailable Machovec, B Kusum PA-C Unavailable Unavailable Machovec, B Kusum PA-C Unavailable Unavailable Machovec, B Kusum PA-C Unavailable Unavailable Machovec, B Kusum PA-C Unavailable Unavailable Machovec, B Kusum PA-C Unavailable Unavailable Machovec, B Kusum PA-C Unavailable Unavailable Machovec, B Kusum PA-C Unavailable Unavailable Machovec, B Kusum PA-C Unavailable Unavailable Machovec, B Kusum PA-C Unavailable Unavailable Machovec, B Kusum PA-C Unavailable Unavailable Machovec, B Kusum PA-C Unavailable Unavailable Machovec, B Kusum PA-C Unavailable Unavailable Machovec, B Kusum PA-C Unavailable Unavailable Machovec, B Kusum PA-C Unavailable Unavailable Machovec, B Kusum PA-C Unavailable Unavailable Machovec, B Kusum PA-C Unavailable Unavailable Machovec, B Kusum PA-C Unavailable Unavailable Machovec, B Kusum PA-C Unavailable Unavailable Machovec, B Kusum PA-C Unavailable Unavailable Machovec, B Kusum PA-C Unavailable Unavailable Machovec, B Kusum PA-C Unavailable Unavailable Machovec, B Kusum PA-C Unavailable Unavailable Machovec, B Kusum PA-C Unavailable Unavailable Machovec, B Kusum PA-C Unavailable Unavailable Machovec, B Kusum PA-C Unavailable Unavailable Machovec, B Kusum PA-C Unavailable Unavailable Machovec, B Kusum PA-C Unavailable Unavailable Machovec, B Kusum PA-C Unavailable Unavailable Machovec, B Kusum PA-C Unavailable Unavailable Machovec, B Kusum PA-C Unavailable Unavailable LESLIE Mcknight, Magy Unavailable ROSETTE, 0000{ Unavailable Unavailable JALIL GALINDO MD Unavailable Unavailable JALIL GALINDO MD Unavailable Unavailable JALIL GALINDO MD Unavailable Unavailable JALIL GALINDO MD Unavailable Unavailable JALIL GALINDO MD Unavailable Unavailable JALIL GALINDO MD Unavailable Unavailable Wall TUMBLING AND ROLLING SUPERVISOR, A Dimitri Unavailable [phone] Wall TUMBLING AND ROLLING SUPERVISOR, A Dimitri Unavailable [phone] Wall TUMBLING AND ROLLING SUPERVISOR, A Dimitri Unavailable [phone] Wall TUMBLING AND ROLLING SUPERVISOR, A Dimitri Unavailable [phone] Wall TUMBLING AND ROLLING SUPERVISOR, A Dimitri Unavailable [phone] FIDEL, MARGO PA Unavailable Unavailable FIDEL, MARGO PA Unavailable Unavailable FIDEL, MARGO PA Unavailable Unavailable FIDEL, MARGO PA Unavailable Unavailable FIDEL, MARGO PA Unavailable Unavailable FIDEL, MARGO PA Unavailable Unavailable FIDEL, MARGO PA Unavailable Unavailable FIDEL, MARGO PA Unavailable Unavailable FIDEL, MARGO PA Unavailable Unavailable FIDEL, MARGO PA Unavailable Unavailable FIDEL, MARGO PA Unavailable Unavailable FIDEL, MARGO PA Unavailable Unavailable FIDEL, MARGO PA Unavailable Unavailable FIDEL, MARGO PA Unavailable Unavailable FIDEL, MARGO PA Unavailable Unavailable FIDEL, MARGO PA Unavailable Unavailable FIDEL, MARGO PA Unavailable Unavailable FIDEL, MARGO PA Unavailable Unavailable FIDEL, MARGO PA Unavailable Unavailable FIDEL, MARGO PA Unavailable Unavailable FIDEL, MARGO PA Unavailable Unavailable FIDEL, MARGO PA Unavailable Unavailable FIDEL, MARGO PA Unavailable Unavailable FIDEL, MARGO PA Unavailable Unavailable FIDEL, MARGO PA Unavailable Unavailable FIDEL, MARGO PA Unavailable Unavailable FIDEL, MARGO PA Unavailable Unavailable FIDEL, MARGO PA Unavailable Unavailable FIDEL, MARGO PA Unavailable Unavailable FIDEL, MARGO PA Unavailable Unavailable FIDEL, MARGO PA Unavailable Unavailable FIDEL, MARGO PA Unavailable Unavailable FIDEL, MARGO PA Unavailable Unavailable FIDEL, MARGO PA Unavailable Unavailable FIDEL, MARGO PA Unavailable Unavailable FIDEL, MARGO PA Unavailable Unavailable FIDEL, MARGO PA Unavailable Unavailable FIDEL, MARGO PA Unavailable Unavailable Newton, Diana RPA-C Unavailable Unavailable Melany, Diana RPA-C Unavailable Unavailable Melany, Diana RPA-C Unavailable Unavailable Melany, Diana RPA-C Unavailable Unavailable Melany, Diana RPA-C Unavailable Unavailable Melany, Diana RPA-C Unavailable Unavailable Newton, Diana RPA-C Unavailable Unavailable Newton, Diana RPA-C Unavailable Unavailable Melany, Diana RPA-C Unavailable Unavailable Melany, Diana RPA-C Unavailable Unavailable Newton, Diana RPA-C Unavailable Unavailable Melany, Diana RPA-C Unavailable Unavailable Melany, Diana RPA-C Unavailable Unavailable Melany, Diana RPA-C Unavailable Unavailable Melany, Diana RPA-C Unavailable Unavailable Melany, Diana RPA-C Unavailable Unavailable Newton, Diana RPA-C Unavailable Unavailable Newton, Diana RPA-C Unavailable Unavailable Melany, Diana RPA-C Unavailable Unavailable Melany, Diana RPA-C Unavailable Unavailable Melany, Diana RPA-C Unavailable Unavailable Melany, Diana RPA-C Unavailable Unavailable Newton, Diana RPA-C Unavailable Unavailable Newton, Diana RPA-C Unavailable Unavailable Melany, Diana RPA-C Unavailable Unavailable Newton, Diana RPA-C Unavailable Unavailable Melany, Diana RPA-C Unavailable Unavailable Melany, Diana RPA-C Unavailable Unavailable Newton, Diana RPA-C Unavailable Unavailable Melany, Diana RPA-C Unavailable Unavailable Newton, Diana RPA-C Unavailable Unavailable Melany, Diana RPA-C Unavailable Unavailable Melany, Diana RPA-C Unavailable Unavailable Newton, December RPA-C Unavailable Unavailable Newton, December RPA-C Unavailable Unavailable Newton, December RPA-C Unavailable Unavailable Melany, December RPA-C Unavailable Unavailable Melany, December RPA-C Unavailable Unavailable Melany, December RPA-C Unavailable Unavailable Newton, December RPA-C Unavailable Unavailable Melany, December RPA-C Unavailable Unavailable Melany, December RPA-C Unavailable Unavailable Melany, December RPA-C Unavailable Unavailable Melany, December RPA-C Unavailable Unavailable Newton, December RPA-C Unavailable Unavailable Melany, December RPA-C Unavailable Unavailable Newton, December RPA-C Unavailable Unavailable Newton, December RPA-C Unavailable Unavailable Melany, December RPA-C Unavailable Unavailable Melany, December RPA-C Unavailable Unavailable Melany, December RPA-C Unavailable Unavailable Newton, December RPA-C Unavailable Unavailable Newton, December RPA-C Unavailable Unavailable Melany, December RPA-C Unavailable Unavailable Melany, December RPA-C Unavailable Unavailable Newton, December RPA-C Unavailable Unavailable Newton, December RPA-C Unavailable Unavailable Newton, December RPA-C Unavailable Unavailable Melany, December RPA-C Unavailable Unavailable Newton, December RPA-C Unavailable Unavailable Melany, December RPA-C Unavailable Unavailable Newton, December RPA-C Unavailable Unavailable Newton, December RPA-C Unavailable Unavailable Melany, December RPA-C Unavailable Unavailable Gabris, Karl Mart MD, FACC Unavailable Unavailable Gabris, Karl Mart MD, FACC Unavailable Unavailable Gabris, Karl Mart MD, FACC Unavailable Unavailable Gabsusan, Karl Mart MD, FACC Unavailable Unavailable Gabris, Karl Mart MD, FACC Unavailable Unavailable Gabris, Karl Mart MD, FACC Unavailable Unavailable Gabris, Karl Mart MD, FACC Unavailable Unavailable Gabris, Karl Mart MD, FACC Unavailable Unavailable Gabris, Karl Mart MD, FACC Unavailable Unavailable Gabris, Karl Mart MD, FACC Unavailable Unavailable Gabris, Karl Mart MD, FACC Unavailable Unavailable Gabsusan, Karl Mart MD, FACC Unavailable Unavailable Gabris, Karl Mart MD, FACC Unavailable Unavailable Gabris, Karl Mart MD, FACC Unavailable Unavailable Gabris, Karl Mart MD, FACC Unavailable Unavailable Gabsusan, Karl Mart MD, FACC Unavailable Unavailable Gabris, Karl Mart MD, FACC Unavailable Unavailable Gabris, Karl Mart MD, FACC Unavailable Unavailable Gabris, Karl Mart MD, FACC Unavailable Unavailable Gabris, Karl Mart MD, FACC Unavailable Unavailable Gabsusan, Karl Mart MD, CAPITAL MEDICAL CENTER Unavailable Unavailable Gabris, Karl Mart MD, [facility]ITAL MEDICAL CENTER Unavailable Unavailable Gabris, Karl Mart MD, [facility]ITAL MEDICAL CENTER Unavailable Unavailable Gabris, Karl Mart MD, CAPITAL MEDICAL CENTER Unavailable Unavailable Gabris, Karl Mart MD, CAPITAL MEDICAL CENTER Unavailable Unavailable Gabris, Karl Mart MD, CAPITAL MEDICAL CENTER Unavailable Unavailable Gabris, Karl Mart MD, CAPITAL MEDICAL CENTER Unavailable Unavailable Gabris, Karl Mart MD, CAPITAL MEDICAL CENTER Unavailable Unavailable Gabris, Karl Mart MD, CAPITAL MEDICAL CENTER Unavailable Unavailable Gabris, Karl Mart MD, CAPITAL MEDICAL CENTER Unavailable Unavailable Gabris, Karl Mart MD, CAPITAL MEDICAL CENTER Unavailable Unavailable Gabris, Karl Mart MD, CAPITAL MEDICAL CENTER Unavailable Unavailable Gabris, Karl Mart MD, CAPITAL MEDICAL CENTER Unavailable Unavailable Gabris, Karl Mart MD, CAPITAL MEDICAL CENTER Unavailable Unavailable Gabris, Karl Mart MD, CAPITAL MEDICAL CENTER Unavailable Unavailable Gabris, Karl Mart MD, CAPITAL MEDICAL CENTER Unavailable Unavailable Gabris, Karl Mart MD, CAPITAL MEDICAL CENTER Unavailable Unavailable Gabris, Karl Mart MD, CAPITAL MEDICAL CENTER Unavailable Unavailable Gabris, Karl Mart MD, CAPITAL MEDICAL CENTER Unavailable Unavailable Gabris, Karl Mart MD, CAPITAL MEDICAL CENTER Unavailable Unavailable Gabris, Karl Mart MD, CAPITAL MEDICAL CENTER Unavailable Unavailable Gabris, Karl Mart MD, CAPITAL MEDICAL CENTER Unavailable Unavailable Gabris, Karl Mart MD, CAPITAL MEDICAL CENTER Unavailable Unavailable Gabris, Karl Mart MD, CAPITAL MEDICAL CENTER Unavailable Unavailable Gabris, Karl Mart MD, CAPITAL MEDICAL CENTER Unavailable Unavailable Gabris, Karl Mart MD, CAPITAL MEDICAL CENTER Unavailable Unavailable Gabris, Karl Mart MD, CAPITAL MEDICAL CENTER Unavailable Unavailable Gabris, Karl Mart MD, CAPITAL MEDICAL CENTER Unavailable Unavailable Gabris, Karl Mart MD, CAPITAL MEDICAL CENTER Unavailable Unavailable Gabris, Karl Mart MD, CAPITAL MEDICAL CENTER Unavailable Unavailable Gabris, Karl Mart MD, CAPITAL MEDICAL CENTER Unavailable Unavailable Gabris, Karl Mart MD, CAPITAL MEDICAL CENTER Unavailable Unavailable Gabris, Karl Mart MD, CAPITAL MEDICAL CENTER Unavailable Unavailable Gabris, Karl Mart MD, CAPITAL MEDICAL CENTER Unavailable Unavailable Gabris, Karl Mart MD, CAPITAL MEDICAL CENTER Unavailable Unavailable Gabris, Karl Mart MD, CAPITAL MEDICAL CENTER Unavailable Unavailable Gabris, Karl Mart MD, CAPITAL MEDICAL CENTER Unavailable Unavailable Gabris, Karl Mart MD, CAPITAL MEDICAL CENTER Unavailable Unavailable Gabris, Karl Mart MD, CAPITAL MEDICAL CENTER Unavailable Unavailable Gabris, Karl Mart MD, CAPITAL MEDICAL CENTER Unavailable Unavailable Gabris, Karl Mart MD, CAPITAL MEDICAL CENTER Unavailable Unavailable Gabris, Karl Mart MD, CAPITAL MEDICAL CENTER Unavailable Unavailable Gabris, Karl Mart MD, CAPITAL MEDICAL CENTER Unavailable Unavailable Gabris, Karl Mart MD, CAPITAL MEDICAL CENTER Unavailable Unavailable Gabris, Karl Mart MD, CAPITAL MEDICAL CENTER Unavailable Unavailable Gabris, Karl Mart MD, FACC Unavailable Unavailable GabKarl davis MD, FACC Unavailable Unavailable GabKarl davis MD, FACC Unavailable Unavailable Goodwin, Lupillo Karlo DO Unavailable Unavailable Goodwin, Lupillo Karlo DO Unavailable Unavailable Goodwin, Lupillo Karlo DO Unavailable Unavailable Goodwin, Lupillo Karlo DO Unavailable Unavailable Goodwin, Lupillo Karlo DO Unavailable Unavailable Goodwin, Lupillo Karlo DO Unavailable Unavailable Goodwin, Lupillo Karlo DO Unavailable Unavailable Goodwin, Lupillo Karlo DO Unavailable Unavailable Goodwin, Lupillo Karlo DO Unavailable Unavailable Goodwin, Lupillo Karlo DO Unavailable Unavailable Goodwin, Lupillo Karlo DO Unavailable Unavailable Goodwin, Lupillo Karlo DO Unavailable Unavailable Goodwin, Lupillo Karlo DO Unavailable Unavailable Goodwin, Lupillo Karlo DO Unavailable Unavailable Goodwin, Lupillo Karlo DO Unavailable Unavailable Goodwin, Lupillo Karlo DO Unavailable Unavailable Goodwin, Lupillo Karlo DO Unavailable Unavailable PHYSICIAN, ER Unavailable Unavailable JUSTIN FERMIN MD Unavailable Unavailable JUSTIN FERMIN MD Unavailable Unavailable JUSTIN FERMIN MD Unavailable Unavailable JUSTIN FERMIN MD Unavailable Unavailable JUSTIN FERMIN MD Unavailable Unavailable JUSTIN FERMIN MD Unavailable Unavailable JUSTIN FERMIN MD Unavailable Unavailable RING, K FLOR PA Unavailable Unavailable RING, K FLOR PA Unavailable Unavailable RING, K FLOR PA Unavailable Unavailable RING, K FLOR PA Unavailable Unavailable RING, K FLOR PA Unavailable Unavailable RING, K FLOR PA Unavailable Unavailable RING, K FLOR PA Unavailable Unavailable RING, K FLOR PA Unavailable Unavailable RING, K FLOR PA Unavailable Unavailable RING, K FLOR PA Unavailable Unavailable RING, K FLOR PA Unavailable Unavailable RING, K FLOR PA Unavailable Unavailable RING, K FLOR PA Unavailable Unavailable RING, K FLOR PA Unavailable Unavailable RING, K FLOR PA Unavailable Unavailable RING, K FLOR PA Unavailable Unavailable RING, K FLOR PA Unavailable Unavailable RING, K FLOR PA Unavailable Unavailable RING, K FLOR PA Unavailable Unavailable RING, K FLOR PA Unavailable Unavailable JALIL GALINDO MD Unavailable Unavailable JALIL GALINDO MD Unavailable Unavailable JALIL GALINDO MD Unavailable Unavailable JALIL GALINDO MD Unavailable Unavailable JALIL GALINDO MD Unavailable Unavailable JALIL GALINDO MD Unavailable Unavailable Crystal HERNANDEZ MD Unavailable Unavailable Crystal HERNANDEZ MD Unavailable Unavailable Crystal HERNANDEZ MD Unavailable Unavailable Crystal HERNANDEZ MD Unavailable Unavailable Crystal HERNANDEZ MD Unavailable Unavailable Crystal HERNANDEZ MD Unavailable Unavailable Crystal HERNANDEZ MD Unavailable Unavailable Crystal HERNANDEZ MD Unavailable Unavailable Crystal HERNANDEZ MD Unavailable Unavailable Crystal HERNANDEZ MD Unavailable Unavailable Crystal HERNANDEZ MD Unavailable Unavailable Crystal HERNANDEZ MD Unavailable Unavailable Crystal HERNANDEZ MD Unavailable Unavailable Crystal HERNANDEZ MD Unavailable Unavailable Crystal HERNANDEZ MD Unavailable Unavailable Crystal HERNANDEZ MD Unavailable Unavailable Crystal HERNANDEZ MD Unavailable Unavailable Crystal HERNANDEZ MD Unavailable Unavailable Crystal HERNANDEZ MD Unavailable Unavailable Crystal HERNANDEZ MD Unavailable Unavailable Crystal HERNANDEZ MD Unavailable Unavailable Crystal HERNANDEZ MD Unavailable Unavailable Crystal HERNANDEZ MD Unavailable Unavailable Crystal HERNANDEZ MD Unavailable Unavailable Crystal HERNANDEZ MD Unavailable Unavailable Crystal HERNANDEZ MD Unavailable Unavailable Crystal HERNANDEZ MD Unavailable Unavailable Crystal HERNANDEZ MD Unavailable Unavailable Crystal HERNANDEZ MD Unavailable Unavailable Crystal HERNANDEZ MD Unavailable Unavailable Crystal HERNANDEZ MD Unavailable Unavailable Crystal HERNANDEZ MD Unavailable Unavailable Crystal HERNANDEZ MD Unavailable Unavailable Crystal HERNANDEZ MD Unavailable Unavailable Crystal HERNANDEZ MD Unavailable Unavailable Crystal HERNANDEZ MD Unavailable Unavailable Crystal HERNANDEZ MD Unavailable Unavailable Crystal HERNANDEZ MD Unavailable Unavailable Crystal HERNANDEZ MD Unavailable Unavailable Crystal HERNANDEZ MD Unavailable Unavailable Crystal HERNANDEZ MD Unavailable Unavailable Crytsal HERNANDEZ MD Unavailable Unavailable Crystal HERNANDEZ MD Unavailable Unavailable Crystal HERNANDEZ MD Unavailable Unavailable Crystal HERNANDEZ MD Unavailable Unavailable Crystal HERNANDEZ MD Unavailable Unavailable Crystal HERNANDEZ MD Unavailable Unavailable Crystal HERNANDEZ MD Unavailable Unavailable Crystal HERNANDEZ MD Unavailable Unavailable Crystal HERNANDEZ MD Unavailable Unavailable Crystal HERNANDEZ MD Unavailable Unavailable Crystal HERNANDEZ MD Unavailable Unavailable Crystal HERNANDEZ MD Unavailable Unavailable Crystal HERNANDEZ MD Unavailable Unavailable Crystal HERNANDEZ MD Unavailable Unavailable Crystal HERNANDEZ MD Unavailable Unavailable Crystal HERNANDEZ MD Unavailable Unavailable Crystal HERNANDEZ MD Unavailable Unavailable Crystal HERNANDEZ MD Unavailable Unavailable Crystal HERNANDEZ MD Unavailable Unavailable Crystal HERNANDEZ MD Unavailable Unavailable Crystal HERNANDEZ MD Unavailable Unavailable Crystal HERNANDEZ MD Unavailable Unavailable Crystal HERNANDEZ MD Unavailable Unavailable Crystal HERNANDEZ MD Unavailable Unavailable Crystal HERNANDEZ MD Unavailable Unavailable Crystal HERNANDEZ MD Unavailable Unavailable Crystal HERNANDEZ MD Unavailable Unavailable Crystal HERNANDEZ MD Unavailable Unavailable Crystal HERNANDEZ MD Unavailable Unavailable Crystal HERNANDEZ MD Unavailable Unavailable Crystal HERNANDEZ MD Unavailable Unavailable Crystal HERNANDEZ MD Unavailable Unavailable Crystal HERNANDEZ MD Unavailable Unavailable Crystal HERNANDEZ MD Unavailable Unavailable Crystal HERNANDEZ MD Unavailable Unavailable Crystal HERNANDEZ MD Unavailable Unavailable Crystal HERNANDEZ MD Unavailable Unavailable Crystal HERNANDEZ MD Unavailable Unavailable Crystal HERNANDEZ MD Unavailable Unavailable Crystal HERNANDEZ MD Unavailable Unavailable Crystal HERNANDEZ MD Unavailable Unavailable Crystal HERNANDEZ MD Unavailable Unavailable Crystal HERNANDEZ MD Unavailable Unavailable Crystal HERNANDEZ MD Unavailable Unavailable Crystal HERNANDEZ MD Unavailable Unavailable Corey II, Raji PA Unavailable Unavailable Corey II, Raji PA Unavailable Unavailable Corey II, Raji PA Unavailable Unavailable Corey II, Raji PA Unavailable Unavailable Corey II, Raji PA Unavailable Unavailable Corey II, Raji PA Unavailable Unavailable Corey II, Raji PA Unavailable Unavailable Corey II, Raji PA Unavailable Unavailable Corey II, Raji PA Unavailable Unavailable Corey II, Raji PA Unavailable Unavailable Corey II, Raji PA Unavailable Unavailable Corey II, Raji PA Unavailable Unavailable Corey II, Raji PA Unavailable Unavailable Corey II, Raji PA Unavailable Unavailable Corey II, Raji PA Unavailable Unavailable Corey II, Raji PA Unavailable Unavailable Corey II, Raji PA Unavailable Unavailable Re-disclosure Warning The records that you are about to access may contain information from federally-assisted alcohol or drug abuse programs. If such information is present, then the following federally mandated warning applies: This information has been disclosed to you from records protected by federal confidentiality rules (42 CFR part 2). The federal rules prohibit you from making any further disclosure of this information unless further disclosure is expressly permitted by the written consent of the person to whom it pertains or as otherwise permitted by 42 CFR part 2. A general authorization for the release of medical or other information is NOT sufficient for this purpose. The Federal rules restrict any use of the information to criminally investigate or prosecute any alcohol or drug abuse patient.The records that you are about to access may contain highly sensitive health information, the redisclosure of which is protected by Article 27-F of the [facility] Public Health law. If you continue you may have access to information: Regarding HIV / AIDS; Provided by facilities licensed or operated by the [facility] Office of Mental Health; or Provided by the [facility] Office for People With Developmental Disabilities. If such information is present, then the following [facility] mandated warning applies: This information has been disclosed to you from confidential records which are protected by state law. State law prohibits you from making any further disclosure of this information without the specific written consent of the person to whom it pertains, or as otherwise permitted by law. Any unauthorized further disclosure in violation of state law may result in a fine or [place] health [place] facility sentence or both. A general authorization for the release of medical or other information is NOT sufficient authorization for further disc losure. 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 -NO packet given Pt Bill of Rights, Priv Prac, Ad Dir completed packet given Pt Bill of Rights, Priv Prac, Ad Dir [place] ([facility]) Note: Pt declined AD packet Allergies and Adverse Reactions Type Description Substance Reaction Status Data Source(s ) Propensity to adverse reactions ATORVASTATIN CALCIUM Atorvastatin C alcium Active [facility] Drug allergy Lipitor atorvastatin muscle pain Active eCW1 ([facility]) Family History Family Member Name Family Member Gender Family Member Status Date o f Status Description Data Source(s) Unknown Unknown Problem [facility] ([facility]) Unknown Male Problem MEDENT ([facility] () Unknown Female Problem [facility] ([facility]) Unknown Female Problem MEDENT ([facility]) Unknown Male Problem MEDENT ([facility]) Encounters Encounter Providers Location Date Indications Data Source(s ) Outpatient Attender: Raji Fields/Karen/Дмитрий/Rein dl 09/17/2020 07:30:00 AM EST [facility] ([facility] Unknown [address] [facility] [place] [address] 09/13/2020 12:00:00 AM EST eCW1 ([facility]) Att[facility] 09/10/2020 01:08:00 PM EST - 09/10/2020 01:08:00 PM EST [facility] ([facility]) OutpatientOFFICE/OUTPATIENT VISIT, EST Attender: Dimitri CALVIN [facility] 09/03/2020 11:00:00 AM EST - 09/03/2020 11:00:00 AM ES T Low back painOther [facility]p (current) 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Ankylosing spondylitis of multiple sites in spine [facility] ([facility]) Low back pain Other m[facility]p (current) 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 Ankylosing spondylitis of multiple sites in spine Outpatient Attender: ADALI FIELDS MD 08/27/2020 11:46:00 AM EST Lab [facility] Lab Office Visit Attender: Raji Fields/Karen/Дмитрий/Rein dl 08/22/2020 08:30:00 AM EST [facility] ([facility]) Attender: Kusum Curiel PA-C [facility] 08/21/2020 09:15:00 AM EST - 08/21/2020 09:15:00 AM EST [facility] ( [facility]) Outpatient Attender: Audie Fields/Karen/Дмитрий/R eindl 08/20/2020 08:45:00 AM EST MEDENT ([facility]) Outpatient [address] [facility] [place] [address] 08/14/2020 12:00:00 AM EST eCW1 ([facility]) Outpatient Attender: Barron Thomas MD, GALINACRedean r: Carmen Del Rio DO [email or web address] 08/07/2020 12:00:00 AM EST - 08/07/2020 02:35:28 PM EST [facility] Outpatient<td ID="encounterTypeDescripti onID0">Pre Op</td><td>Carmen Del Rio DO</td><td>[facility]</td><td>08/05/2020</td><td><content ID="encounterDiagnosisID0-0">Diabetes Mellitus Type 2</content>, <content ID="encounterDiagnosisID0-1">Essential Hypertension</content>, <content ID="encounterDiagnosisID0-2">Gerd</content>, <content ID="encounterDiagnosisID0- 3">Hyperlipidemia</content>, <content ID="encounterDiagnosisID0-4">Oral Leukoplakia</content>, <content ID="encounterDiagnosisID0-5">Nonorganic Sleep Apnea</content>, <content ID="encounterDiagnosisID0-6">Abnormal Electrocardiogram</content></td> Attender: Carmen Del Rio DO [facility] 08/05/2020 09:01:00 AM EST - 08/05/2020 10:06:29 AM EST Abnormal ElectrocardiogramOral LeukoplakiaGerdNonorganic Sleep ApneaHyperlipidemiaEssential HypertensionDiabetes Mellitus Type 2 [place] ([facility]) Abnormal Electrocardiogram Oral Leukoplakia Gerd Nonorganic Sleep Apnea Hyperlipidemia Essential Hypertension Diabetes Mellitus Type 2 Attender: KEZIA PRINCE MD [facility] 07/23/2020 11:20:00 AM EST - 07/23/2020 11:20:00 AM EST Ankylosing spondylitis of multiple sites in spine [facility] ([facility]) Ankylosing spondylitis of multiple sites in spine Outpatient Attender: ADALI iFelds/Karen/Дмитрий/Denis hanley 07/17/2020 09:15:00 AM EST MED[facility] ([facility]) Outpatient Attender: MARGO meade 07/16/2020 08:00:00 AM EST MEDENT ([facility]) Attender: Aicha Hadley MD [facility] 06/24/2020 10:40:00 AM EDT - 06/24/2020 10:40:00 AM EDT Ankylosing spondylitis of multiple sites in [facility] ([facility]) Ankylosing spondylitis of multiple sites in spine Outpatient [address] [facility] [place] [address] 06/14/2020 12:00:00 AM EDT [facility]CW1 [facility]) Attender: KEZIA PRINCE [facility] 05/27/2020 10:40:00 AM EDT - 05/27/2020 10:40:00 AM EDT Ankylosing spondylitis of multiple sites in spine [facility] ([facility]) Ankylosing spondylitis of multiple sites in spine Attender: Kusum Curiel PA-C [facility] 05/24/2020 10:19:00 AM EDT - 05/24/2020 10:19:00 AM EDT [facility] ( [facility]) OutpatientOFFICE/OUTPATIENT VISIT, EST Attender: Kusum Miller PA-C [facility] 05/16/2020 10:00:00 AM EDT - 05/16/2020 10:00:00 AM ED T Other [facility] (current) 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Ankylosing spondylitis of multiple sites in spine [facility] ([facility]) 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 Ankylosing spondylitis of multiple sites in spine Attender: KEZIA PRINCE [facility] 04/29/2020 11:00:00 AM EDT - 04/29/2020 11:00:00 AM EDT Ankylosing spondylitis of multiple sites in spine [facility] ([facility]) Ankylosing spondylitis of multiple sites in spine Attender: KEZIA PRINCE [facility] 04/24/2020 04:35:00 PM EDT - 04/24/2020 04:35:00 PM EDT [facility] ( [facility]) Attender: KEZIA PRINCE [facility] 04/01/2020 11:00:00 AM EDT - 04/01/2020 11:00:00 AM EDT Ankylosing spondylitis of multiple sites in spine [facility] ([facility]) Ankylosing spondylitis of multiple sites in spine Attender: Diana STRICKLAND [facility] 03/27/2020 11:36:00 AM EDT - 03/27/2020 11:36:00 AM EDT [facility] ( [facility]) Outpatient [address] [facility] [address] 03/11/2020 12:00:00 AM EDT eCW1 ([facility]) Unknown<td ID="encounterTypeDescriptionI D1">Chart Prep</td><td>Carmen Del Rio DO</td><td></td><td>03/08/2020</td><td></td> Attender: Carmen Del Rio DO 03/08/2020 11:33:00 AM EDT - 03/08/2020 11:59:00 PM EDT [place] ([facility]) Outpatient [address] [facility] [address] 02/15/2020 12:00:00 AM EDT eCW1 ([facility]) PHONE E/M BY PHYS 5-10 MIN Attender: Diana STRICKLAND [facility] 02/14/2020 10:01:00 AM EDT - 02/14/2020 10:01:00 AM ED T Ankylosing spondylitis of multiple sites in spine [facility] ([facility]) Ankylosing spondylitis of multiple sites in spine Outpatient [address] [facility] [address] 02/12/2020 12:00:00 AM EDT eCW1 ([facility]) Outpatient Referrer: Carmen Del Rio DO 02/09/2020 06:01 :00 AM EDT [facility] Attender: Diana STRICKLAND [facility] 02/08/2020 12:00:00 PM EDT - 02/08/2020 12:00:00 PM EDT [facility] ( [facility]) Attender: Diana Melany RPA-C [facility] 02/07/2020 01:56:00 PM EDT - 02/07/2020 01:56:00 PM EDT [facility] ( [facility]) Attender: KEZIA PRINCE [facility] 02/05/2020 09:00:00 AM EDT - 02/05/2020 09:00:00 AM EDT Other [facility] (current) drug therapyAnkylosing spondylitis of multiple sites in spine [facility] ([facility]) Other mcfp (current) drug therapy Ankylosing spondylitis of multiple sites in spine Attender: Diana Melany RPA-C [facility] 02/01/2020 10:36:00 AM EDT - 02/01/2020 10:36:00 AM EDT [facility] ( [facility]) Outpatient [address] [facility] [address] 01/30/2020 12:00:00 AM EDT eCW1 ([facility]) [facility] Dermatology [address] [place] [phone] 01/23/2020 12:00:00 AM EDT eCW1 ([facility]) [facility] Pain Center [address] [place] [phone] 01/15/2020 12:00:00 AM EDT eCW1 ([facility]) Attender: KEZIA PRINCE MD [facility] 12/25/2019 01:20:00 PM EDT - 12/25/2019 01:20:00 PM EDT Ankylosing spondylitis of multiple sites in spine [facility] ([facility]) Ankylosing spondylitis of multiple sites in spine Attender: KEZIA PRINCE [facility] 12/21/2019 01:31:00 PM EDT - 12/21/2019 01:31:00 PM EDT [facility] ( [facility]) [facility] Dermatology Center [address] [place] [address] 12/19/2019 12:00:00 AM EDT eCW1 ([facility]) [facility] Pain Center [address] [place] [address] 12/07/2019 12:00:00 AM EDT eCW1 ([facility]) Attender: KEZIA PRINCE [facility] 11/27/2019 10:00:00 AM EDT - 11/27/2019 10:00:00 AM EDT Ankylosing spondylitis of multiple sites in spine [facility] ([facility]) Ankylosing spondylitis of multiple sites in spine Attender: December Melany RPA-C [facility] 11/23/2019 11:15:00 AM EDT - 11/23/2019 11:15:00 AM EDT [facility] ( [facility]) Attender: KEZIA PRINCE [facility] 10/30/2019 11:00:00 AM EST - 10/30/2019 11:00:00 AM EST Ankylosing spondylitis of multiple sites in spine [facility] ([facility]) Ankylosing spondylitis of multiple sites in spine [facility] Dermatology [address] [place] [phone] 10/26/2019 12:00:00 AM EST eCW1 ([facility]) Attender: [facility]IA PRINCE [facility] 10/25/2019 10:10:00 AM EST - 10/25/2019 10:10:00 AM EST [facility] ( [facility]) Outpatient Attender: Audie Fields/Karen/Дмитрий/Fernando rico 10/17/2019 09:30:00 AM EST MEDENT ([facility]) OutpatientOFFICE/OUTPATIENT VISIT, EST Attender: December Tricia bertram [facility] 10/11/2019 10:20:00 AM EST - 10/11/2019 10:20:00 AM EST Other mcfp (current) drug therapyAn kylosing spondylitis of multiple sites in spine [facility] ([facility]) Other mcfp (current) drug therapy Ankylosing spondylitis of multiple sites in spine Unknown<td ID="encounterTypeDescriptionI D2">Referral Order</td><td>Carmen Del Rio DO</td><td></td><td>10/04/2019</td><td></td> Attender: Carmen Del Rio DO 10/04/2019 11:29:00 AM EST - 10/04/2019 11:59:00 PM EST [place] ([facility]) Attender: KEZIA PRINCE [facility] 10/02/2019 11:00:00 AM EST - 10/02/2019 11:00:00 AM EST Ankylosing spondylitis of multiple sites in spine [facility] ([facility]) Ankylosing spondylitis of multiple sites in spine Attender: Diana Mosley RPA-C [facility] 09/28/2019 10:39:00 AM EST - 09/28/2019 10:39:00 AM EST [facility] ( [facility]) Unknown<td ID="encounterTypeDescriptionI D3">Problem List Update</td><td>Magy Mcknight RN</td><td></td><td>09/26/2019</td><td></td> Attender: Magy Mcknight RN 09/26/2019 09:53:00 AM EST - 09/26/2019 11:59:00 PM EST [place] ([facility]) Outpatient Referrer: Carmen Del Rio DO 09/22/2019 08:30 :00 AM EST [facility] Outpatient Referrer: Carmen Del Rio DO 09/22/2019 08:24 :00 AM EST [facility] Outpatient Referrer: Carmen Del Rio DO 09/22/2019 08:24 :00 AM EST [facility] Unknown<td ID="encounterTypeDescriptionI D4">Referral Order</td><td>Carmen Del Rio DO</td><td></td><td>09/19/2019</td><td></td> Attender: Carmen Del Rio DO 09/19/2019 03:11:00 PM EST - 09/19/2019 11:59:00 PM EST [place] ([facility]) Outpatient Referrer: Carmen Del Rio DO 09/19/2019 03:10 :00 PM EST [facility] Outpatient 09/19/2019 03:08:00 PM EST [facility] Outpatient<td ID="encounterTypeDescripti onID5">Hospital Follow- up</td><td>Carmen Del Rio DO</td><td>[facility]</td><td>09/18/2019</td><td><content ID="encounterDiagnosisID5-0"> Nausea</content>, <content ID="encounterDiagnosisID5-1">Diabetes Mellitus Type 2</content>, <content ID="encounterDiagnosisID5-2">Nonorganic Sleep Apnea</content>, <content ID="encounterDiagnosisID5-3">Actinic Keratosis</content>, <content ID="encounterDiagnosisID5-4">Essential Hypertension</content>, <content ID="encounterDiagnosisID5-5">Taking Medication For Diabetes Long-term Use of Insulin</content>, <content ID="encounterDiagnosisID5-6">Hyperlipidemia</content>, <content ID="encounterDiagnosisID5-7">Bulging Intervertebral Disc Lumbar</content></td> Attender: Carmen Del Rio DO [facility] 09/18/2019 09:39:00 AM EST - 09/18/2019 11:02:12 AM EST Bulging Intervertebral Disc LumbarTaking Medication For Diabetes Long-term Use of InsulinActinic KeratosisNauseaBulging Intervertebral Disc LumbarTaking Medication For Diabetes Long-term Use of Insul inActinic KeratosisNauseaNonorganic Sleep ApneaNonorganic Sleep ApneaHyperlipidemiaEssential HypertensionHyperlipidemiaEssential HypertensionDiabetes Mellitus Type 2Diabetes Mellitus Type 2 [facility] ([facility]) Bulging Intervertebral Disc Lumbar Taking Medication For Diabetes Long-term Use of Insulin Actinic Keratosis Nausea Bulging Intervertebral Disc Lumbar Taking Medication For Diabetes Long-term Use of Insulin Actinic Keratosis Nausea Nonorganic Sleep Apnea Nonorganic Sleep Apnea Hyperlipidemia Essential Hypertension Hyperlipidemia Essential Hypertension Diabetes Mellitus Type 2 Diabetes Mellitus Type 2 ( in Healthcare facility) Attender: Altagracia Goodwin DOAttender: JALIL GALINDO MDAdmitter: JALIL GALINDO MDConsultant: Carmen Del Rio DO 09/11/2019 10:17:00 PM EST - 09/15/2019 04:38:00 PM EST [facility] Inpatient Attender: 0000{ ROSETTE 09/11/2019 10:17:00 PM E [facility] Inpatient Attender: Karlo Mcnair fabiana: JUSTIN FERMIN MDAttender: JALIL GALINDO MDAttender: ER PHYSICIANAdmitter: JALIL GALINDO MD 09/11/2019 05:54:58 PM EST [facility] Inpatient Attender: Karlo Mcnair fabiana: JUSTIN FERMIN MDAttender: JALIL GALINDO MDAttender: ER PHYSICIANAdmitter: JALIL GALINDO MD 09/11/2019 02:38:00 PM EST - 09/15/2019 04:38:00 PM EST [facility] Patient discharged. Outpatient 09/11/2019 09:54:00 AM EST [facility] Outpatient Attender: FLOR Mckeon 09/11/2019 09:45:00 AM EST MEDENT ([facility], [facility]) [facility] Pain Center [address] [place] [address] 09/07/2019 12:00:00 AM EST eCW1 ([facility]) Attender: [id number] [id number] CARMEN HERNANDEZ MD [facility] 09/04/2019 10:40:00 AM EST - 09/04/2019 10:40:00 AM EST Ankylosing spondylitis of multiple sites in spine [facility] ([facility]) Ankylosing spondylitis of multiple sites in spine [facility] Pain Center [address] [place] [phone] 08/21/2019 12:00:00 AM EST eCW1 ([facility]) Outpatient Attender: Audie Fields/Karen/Дмитрий/Fernando rico 08/18/2019 09:30:00 AM EST MEDENT ([facility] Pain Center [address] [place] [phone] 08/11/2019 12:00:00 AM EST eCW1 ([facility]) [facility] Pain Center [address] [place] [phone] 08/11/2019 12:00:00 AM EST eCW1 ([facility]) [facility] Pain Center [address] [place] [address] 07/31/2019 12:00:00 AM EST eCW1 ([facility]) Immunizations Vaccine Date Status Description Data Source(s) IIV3. This is one of two codes replacing CVX 15, which is being retired. 07/24/2020 12:00:00 AM EST completed Historical Influenza Vaccine [facility] ([facility]) Note: APPROX ; Source: Other Provider Medications Medication Brand Name Start Date Product Form Dose Route Admi nistrative Instructions Pharmacy Instructions Status Indications Reaction Description Data Source(s) Ofloxacin 3 MG/ML Otic Solution Ofloxacin (Otic) 09/17/2020 12:00:00 AM EST AURICULAR active MEDENT ([facility], ) 0.3 % 09/17/2020 12:00:00 AM EST drops 5 INSTILL 5 DROP IN THE LEFT EAR TWO TIMES A DAY FOR 7 DAYS INSTILL 5 DROP IN THE LEFT EAR TWO TIMES A DAY FOR 7 DAYS SOLD: 09/17/2020 [facility] tizanidine 2 MG Oral Tablet TIZANIDINE HCL 09/11/2020 12:00:[address] tablet 180 TAKE TWO TABLETS BY MOUTH AT BEDTIME TAKE TWO TA BLETS BY MOUTH AT BEDTIME SOLD: 09/17/2020 [facility] tizanidine 2 MG Oral Tablet tizanidine 2 mg tablet tizanidin e 2 mg tablet 09/10/2020 12:00:00 AM EST active take 2 tablet by oral route every bedtime [facility] ([facility]) 0.12 % 08/15/2020 12:00:00 AM EST mouthwash 473 SWISH AND SPIT 3 TEASPOONFULS (15 ML) BY MOUTH THREE TIMES A DAY FOR 10 DAYS SWISH AND SPIT 3 TEASPOONFULS (15 ML) BY MOUTH THREE TIMES A DAY FOR 10 DAYS SOLD: 08/15/2020 [facility] Amoxicillin 875 MG / Clavulanate 125 MG Oral Tablet Am oxicillin/Clavulanate Potassium 08/15/2020 12:00:00 AM EST ORAL completed MEDENT ([facility], ) 875-125 mg 08/15/2020 12:00:00 AM EST tablet 20 TAKE ONE TABLET BY MOUTH TWICE A DAY FOR 10 DAYS TAKE ONE TABLET BY MOUTH TWICE A DAY FOR 10 DAYS SOLD: 08/15/2020 [facility] chlorhexidine gluconate 1.2 MG/ML Mouthwash Chlorhexidine Gl uconate 08/15/2020 12:00:00 AM EST ORAL completed MEDENT ([facility], ) 0.12 % 08/15/2020 12:00:00 AM EST mouthwash 473 SWISH AND SPIT 3 TEASPOONFULS (15 ML) BY MOUTH THREE TIMES A DAY FOR 10 DAYS SWISH AND SPIT 3 TEASPOONFULS (15 ML) BY MOUTH THREE TIMES A DAY FOR 10 DAYS SOLD: 08/28/2020 [facility] 875-125 mg 08/15/2020 12:00:00 AM EST tablet 20 TAKE ONE TABLET BY MOUTH TWICE A DAY FOR 10 DAYS TAKE ONE TABLET BY MOUTH TWICE A DAY FOR 10 DAYS SOLD: 08/28/2020 [facility] 24 HR Metformin hydrochloride 750 MG Ext ended Release Oral Tablet metFORMIN HCl ER 750 MG Oral Tablet Extended Release 24 Hour metFORMIN HCl ER 750 MG Oral Tablet Extended Release 24 Hour 08/05/2020 12:00:00 AM EST 1 active 24 HR metformin hydrochloride 750 MG Extended Release Oral Tablet [facility] ([facility]) empagliflozin 10 MG Oral Tablet [Jardiance] Jardiance 10 MG Oral Tablet Jardiance 10 MG Oral Tablet 08/05/2020 12:00:00 AM EST 1 active empagliflozin 10 MG Oral Tablet [Jardiance] [place] ([facility]) 0.12 % 07/19/2020 12:00:00 AM EST mouthwash [address] MLS IN THE MOUTH BY MUCOUS MEMBRANE ROUTE ONCE A DAY AFTER BRUSHING TEETH, SWISH IN MOUTH FOR 30 SECONDS THEN SPIT OUT PLACE 15 MLS IN THE MOUTH BY MUCOUS MEMB NEMESIO ROUTE ONCE A DAY AFTER BRUSHING TEETH, SWISH IN MOUTH FOR 30 SECONDS THEN SPIT OUT SOLD: 07/24/2020 [facility] tizanidine 2 MG Oral Tablet tiZANidine (ZANAFLEX) 2 MG tablet tiZANidine (ZANAFLEX) 2 MG tablet 05/17/2020 12:00:00 AM EDT 4 mg Oral active Take 4 mg by mouth [facility] 2 mg 05/17/2020 12:00:00 AM EDT tablet 166 TAKE TWO TABLETS BY MOUTH AT BEDTIME TAKE TWO TABLETS BY MOUTH AT BEDTIME SOLD: 05/24/2020 [facility] tizanidine 2 MG Oral Tablet tiZANidine HCl 2 MG Oral T ablet tiZANidine HCl 2 MG Oral Tablet 05/16/2020 12:00:00 AM EDT active tizanidine 2 MG Oral Tablet [place] ([facility]) tizanidine 2 MG Oral Tablet tizanidine 2 mg tablet tizanidin e 2 mg tablet 05/16/2020 12:00:00 AM EDT completed take 2 tablet by oral route every bedtime [facility] ([facility]) tizanidine 2 MG Oral Tablet tizanidine 2 mg tablet tizanidin e 2 mg tablet 02/14/2020 12:00:00 AM EDT completed take 2 tablet by oral route every bedtime [facility] ([facility]) 2 mg 02/14/2020 12:00:00 AM EDT tablet 90 TAKE TWO TABLETS BY MOUTH AT BEDTIME TAKE TWO TABLETS BY MOUTH AT BEDTIME SOLD: 02/15/2020 [facility] 0.77 % 01/23/2020 12:00:00 AM EDT gel 45 APPLY TO FEET AND BACK RASH TWO TIMES A DAY APPLY TO FEET AND BACK RASH TWO TIMES A DAY SOLD: 04/08/2020 [facility] 0.77 % 01/23/2020 12:00:00 AM EDT gel 45 APPLY TO FEET AND BACK RASH TWO TIMES A DAY APPLY TO FEET AND BACK RASH TWO TIMES A DAY SOLD: 01/27/2020 [facility] 0.3 % 12/13/2019 12:00:00 AM EDT drops 5 INSTILL 5 DROPS INTO LEFT EAR TWO TIMES A DAY FOR 7 DAYS INSTILL 5 DROPS INTO LEFT EAR TWO TIMES A DAY FOR 7 DA YS SOLD: 12/15/2019 [facility] Ofloxacin 3 MG/ML Otic Solution Ofloxacin (Otic) 12/13/2019 12:00:00 AM EDT AURICULAR active [facility]ENT ([facility]) 0.77 % 10/27/2019 12:00:00 AM EST gel 30 APPLY 1 APPLICATION TWO TIMES A DAY TO RASH ON FEET AND BACK APPLY 1 APPLICATION TWO TIMES A DAY TO R YE ON FEET AND BACK SOLD: 10/28/2019 [facility] ciclopirox 0.0077 MG/MG Topical Gel Ciclopirox 0.77 % Ciclop irox 0.77 % 10/26/2019 12:00:00 AM EST active 1 application eCW1 ([facility]) ciclopirox 0.0077 MG/MG Topical Gel Ciclopirox 0.77 % Ciclop irox 0.77 % 10/26/2019 12:00:00 AM EST active 1 application eCW1 ([facility]) 17 gram/dose 09/18/2019 12:00:00 AM EST powder 238 MIX UP TO 1 SCOOP WITH 8 OUNCES OF WATER AND TAKE BY MOUTH ONCE DAILY MIX UP TO 1 SCOOP WITH 8 OUNCES OF WATER AND TAKE BY MOUTH ONCE DAILY SOLD: 09/21/2019 [facility] POLYETHYLENE GLYCOL 3350 142 MG/ML Oral Solution Polyethylene Glycol 3350 Oral Powder Polyethylene Glycol 3350 Oral Powder 09/18/2019 12:00:00 AM EST 1 active polyethylene glycol 3350 170 00 MG Powder for Oral Solution [facility] ([facility]) 17 gram/dose 09/18/2019 12:00:00 AM EST powder 238 MIX UP TO 1 SCOOP WITH 8 OUNCES OF WATER AND TAKE BY MOUTH ONCE DAILY MIX UP TO 1 SCOOP WITH 8 OUNCES OF WATER AND TAKE BY MOUTH ONCE DAILY SOLD: 04/08/2020 [facility] 17 gram/dose 09/18/2019 12:00:00 AM EST powder 238 MIX UP TO 1 SCOOP WITH 8 OUNCES OF WATER AND TAKE BY MOUTH ONCE DAILY MIX UP TO 1 SCOOP WITH 8 OUNCES OF WATER AND TAKE BY MOUTH ONCE DAILY SOLD: 01/05/2020 [facility] 4 mg 09/15/2019 12:00:00 AM EST tablet 30 TAKE 1 TABLET BY MOUTH EVERY 6 HOURS NEEDED FOR NAUSEA AND VOMITING TAKE 1 TABLET BY MOUTH EVERY 6 HOURS NEEDED FOR NAUSEA AND VOMITING SOLD: 09/15/2019 [facility] 100 mg 09/15/2019 12:00:00 AM EST capsule 24 TAKE ONE CAPSULE BY MOUTH TWICE A DAY TAKE ONE CAPSULE BY MOUTH TWICE A DAY SOLD: 09/15/2019 [facility] Ondansetron 4 MG Oral Tablet Ondansetron HCl 4 MG Oral Tablet Ondansetron HCl 4 MG Oral Tablet 09/15/2019 12:00:00 AM EST abo rted ondansetron 4 MG Oral Tablet [facility] ([facility]) doxycycline hyclate 100 MG Oral Tablet Doxycycline Hyc late 100 MG Oral Tablet Doxycycline Hyclate 100 MG Oral Tablet 09/15/2019 12:00:00 AM EST 1 aborted doxycycline hyclate 100 MG Oral Tablet [facility] ([facility]) tizanidine 2 MG Oral Tablet Tizanidine HCl 2 MG Tizanidine H Cl 2 MG 08/11/2019 12:00:00 AM EST suspended 1 tab let as needed eCW1 ([facility]ly [facility]) tizanidine 2 MG Oral Tablet Tizanidine HCl 2 MG Tizanidine H Cl 2 MG 08/11/2019 12:00:00 AM EST suspended 1 tab let as needed eCW1 ([facility]) tizanidine 2 MG Oral Tablet Tizanidine HCl 2 MG Tizanidine H Cl 2 MG 08/11/2019 12:00:00 AM EST active 1 tablet as needed eCW1 ([facility]) tizanidine 2 MG Oral Tablet Tizanidine HCl 2 MG Tizanidine H Cl 2 MG 08/11/2019 12:00:00 AM EST suspended 1 tab let as needed eCW1 ([facility]) 2 mg 08/11/2019 12:00:00 AM EST tablet 90 TAKE ONE TABLET BY MOUTH THREE TIMES A DAY NEEDED TAKE ONE TABLET BY MOUTH THREE TIMES A DAY NEEDED S OLD: 08/11/2019 Diane Lackey tizanidine 2 MG Oral Tablet Tizanidine HCl 2 MG Tizanidine H Cl 2 MG 08/11/2019 12:00:00 AM EST active 1 tablet as needed eCW1 ([facility]) doxycycline hyclate 100 MG Oral Capsule Doxycycline Hyclate 06/08/2019 12:00:00 AM EDT ORAL completed [facility] ([facility]) 50 mg 05/03/2019 12:00:00 AM EDT tablet 21 TAKE ONE TABLET BY MOUTH EVERY 8 HOURS NEEDED FOR SEVERE PAIN, MAXIMUM DAILY DOSE = THREE TABLETS TAKE ONE TABLET BY MOUTH EVERY 8 HOURS NEEDED FOR SEVERE PAIN, MAXIMUM DAILY DOSE = THREE TABLETS SOLD: 08/11/2019 Diane Rogersu gs 50 mg 05/03/2019 12:00:00 AM EDT tablet 21 TAKE ONE TABLET BY MOUTH EVERY 8 HOURS NEEDED FOR SEVERE PAIN, MAXIMUM DAILY DOSE = THREE TABLETS TAKE ONE TABLET BY MOUTH EVERY 8 HOURS NEEDED FOR SEVERE PAIN, MAXIMUM DAILY DOSE = THREE TABLETS SOLD: 07/31/2019 Diane Cruz gs Metformin hydrochloride 500 MG Oral Tablet metFORMIN H Cl 500MG Oral Tablet metFORMIN HCl 500MG Oral Tablet 02/28/2019 12:00:00 AM EDT 1 aborted metformin hydrochloride 500 MG [facility]t [facility] tizanidine 2 MG Oral Tablet tizanidine 2 mg tablet tizanidine 2 mg ta blet completed take 2 tablet by oral route every 8 hours as needed not to exceed 3 doses in 24 [facility] Ondansetron 8 MG Oral Tablet ondansetron HCl 8 mg tabl et ondansetron HCl 8 mg tablet 1 {tbl} ORAL completed take 1 tablet by oral route 3 times every day [facility] Metformin hydrochloride 500 MG Oral Tablet metformin 5 00 mg tablet metformin 500 mg tablet 1 {tbl} ORAL completed ta ke 1 tablet by oral route 2 times every day with morning and evening meals [facility]) Insurance Providers Payer name Policy type / Coverage type Policy ID Covered alliance party ID Covered alliance party's relationship to nelson Policy Nelson Plan Information MEDICARE [id number] SP [id number] BCBS EMPIRE YADI DIV [id number] SP [id number] [facility] [id number] SP [id number] BCBS EMPIRE YADI DIV [id number] SP [id number] [facility] [id number] SP [id number] BCBS EMPIRE YADI DIV [id number] SP [id number] BCBS EMPIRE YADI DIV [id number] SP [id number] SELF PAY BLUE CROSS [id number] SP [id number] MEDICARE [id number] SP [id number] EXCELLUS BCBS [id number] Gloria YLS [id number] MEDICARE [id number] Gloria [id number] [id number] EXCELLUS BCBS [id number] MEDICARE [id number] BCBS EMPIRE YADI DIV [id number] SP [id number] [employer] Other 0 Self 0 Medicare Part A of [place] Other 0 Self 0 MEDICARE [id number] SP [id number] MEDICARE C [id number] S [id number] [facility] O [id number] S [id number] BCBS EMPIRE YADI DIV [id number] SP [id number] EMPIRE ([facility]) O [id number] S [id number] MEDICARE C [id number] S [id number] [id number] [employer] Other 0 Self 0 Medicare Part A of [place] Other 0 Self 0 EXCELLUS BLUE CROSS BLUE SHIELD HEA [id number] S [id number] MEDICARE MCA [id number] S [id number] MEDICARE MCA [id number] S [id number] [id number] ANSI-Commercial [id number] ANSI-Medicare Part [id number] ANSI-Commercial [id number] ANSI-Commercial [id number] ANSI-Commercial [id number] ANSI-Medicare Part B [id number] [employer] Other 0 Self 0 Medicare Part A of [place] Other 0 Self 0 BCBS EMPIRE YADI DIV [id number] SP [id number] BCBS [facility] DIV [id number] SP [id number] ANSI-Medicare Part B [id number] ANSI-Commercial [id number] ANSI-Commercial [id number] ANSI-Medicare Part B [id number] ANSI-Commercial [id number] ANSI-Commercial [id number] [facility] Part B [id number] Self [id number] Medicare [place] Medicare Primary [id number] Self [id number] MEDICARE [id number] SP [id number] A [facility] [id number] SP [id number] BS [place] DIV [id number] SP [id number] ANSI-Commercial [id number] ANSI-Medicare Part B [id number] ANSI-Commercial [id number] ANSI-Commercial [id number] ANSI-Commercial [id number] ANSI-Medicare Part B [id number] [facility] Other 0 Self 0 Medicare Part A [facility] Other 0 Self 0 [facility] Part B [id number] Self [id number] [place]/[facility] Medicare Primary [id number] Self [id number] ANSI-Medicare Part B [id number] ANSI-Commercial [id number] ANSI-Commercial [id number] ANSI-Commercial [id number] ANSI-Commercial [id number] ANSI-Medicare Part B [id number] ANSI-Commercial [id number] ANSI-Commercial [id number] ANSI-Medicare Part B [id number] [facility] Part B [id number] Self [id number] Medicare [place]/[facility] Medicare Primary [id number] Self [id number] ANSI-Commercial [id number] ANSI-Commercial [id number] ANSI-Medicare Part B [id number] ANSI-Commercial [id number] ANSI-Commercial [id number] ANSI-Medicare Part B [id number] ANSI-Commercial [id number] ANSI-Commercial [id number] ANSI-Medicare Part B [id number] [facility] Medigap Part B [id number] Self [id number] Medicare Natl Gov't Servi Medicare Primary [id number] Self [id number] MEDICARE C [id number] S [id number] A [facility] [place] Medigap Part B [id number] Self [id number] Medicare Natl Gov't Servi Medicare Primary [id number] Self [id number] [facility] [place] Medigap Part B [id number] Self [id number] Medicare Natl Gov't Servi Medicare Primary [id number] Self [id number] [facility] [place] Medigap Part B [id number] Self [id number] Medicare Natl Gov't Servi Medicare Primary [id number] Self [id number] MEDICARE [id number] SP [id number] A [facility] [place] Medigap Part B [id number] Self [id number] Medicare [place] Medicare Primary [id number] Self [id number] BCBS EMPIRE YADI DIV [id number] SP [id number] [place] Plan Medigap Part B [id number] Self [id number] Medicare - NGS Medicare Primary [id number] Self [id number] [facility] [place] Medigap Part B [id number] 01 Self [id number] 01 [place] Medicare Primary [id number] Self [id number] [facility] [place] Medigap Part B [id number] 01 Self [id number] 01 [place] Medicare Primary [id number] Self [id number] [facility] [place] Medigap Part B [id number] 01 Self [id number] 01 [place] Medicare Primary [id number] Self [id number] [facility] [place] Medigap Part B [id number] Self [id number] Medicare Natl Gov't Servi Medicare Primary [id number] Self [id number] [facility] [place] Medigap Part B [id number] Self [id number] Medicare Natl Gov't Servi Medicare Primary [id number] Self [id number] [facility] [place] Medigap Part B Self [place] Medicare Primary Self [place] [employer] Medigap Part B [place] Primary Self BCBS EMPIRE YADI DIV [id number] SP [id number] [facility] [place] Medigap Part B Self Medicare Natl Gov't Servi Medicare Primary Self EMPIRE BLUE CROSS BLUE SHIELD -O/P [id number] 18 [id number] MEDICARE -O/P [id number] 18 [id number] MEDICARE -O/P UNAVAILABLE UNAVAILABLE BLUE CROSS [id number] SP [id number] MEDICARE [id number] SP [id number] A EMPIRE PLAN [facility] U [id number] Self [id number] MEDICARE A [id number] Self [id number] A BLUE CROSS [id number] SP [id number] Problems, Conditions, and Diagnoses Code Display Name Description Problem Type Effective Dates Data Source(s) G47.33 Obstructive sleep apnea Obstructive sleep apnea 011809 01 08/06/2020 12:00:00 AM [facility] E78.5 Hyperlipidemia Hyperlipidemia [id number] 08/06/2020 12:00: 00 AM [facility] I10 Essential hypertension Essential hypertension [id number] 08/06/2020 12:00:00 AM [facility] R94.31 Abnormal electrocardiogram Abnormal electrocardiogram [id number] 08/06/2020 12:00:00 AM [facility] Z01.818 Pre-op evaluation Pre-op evaluation [id number] 08/06/2020 12:00:00 AM [facility] 571.8 Fatty Liver Fatty Liver Problem 09/26/2019 12:00:00 AM EST [facility] ([facility]) 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 09/18/2019 12:00:00 AM EST [facility] ([facility]) 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 09/18/2019 12:00:00 AM EST [facility] ([facility]) G47.33 Obstructive sleep apnea (adult) (pediatr ic) Obstructive sleep apnea (adult) (pediatr Diagnosis 08/07/2020 01:58:53 PM [facility] E78.2 Mixed hyperlipidemia Mixed hyperlipidemia Diagnosis 08/07/2020 01:58:53 PM [facility] I10 Essential (primary) hypertension Essential (primary) h ypertension Diagnosis 08/07/2020 01:58:53 PM [facility] R94.31 Abnormal electrocardiogram [ECG] [EKG] A bnormal electrocardiogram (ECG) (EKG) Diagnosis 08/07/2020 01:58:53 PM [facility] Z01.818 Encounter for other preprocedural examin ation Encounter for other preprocedural examin Diagnosis 08/07/2020 01:58:53 PM [facility] Surgeries/Procedures Procedure Description Date Indications Data Source(s) Remove Impacted Cerumen 09/17/2020 12:00:00 AM EST [facility] ([facility] ) OFFICE/OUTPATIENT VISIT, EST 09/03/2020 12:00:00 AM EST - 09/03/2020 12:00:00 AM EST [facility] ([facility]) ALANINE AMINO (ALT) (SGPT) 09/03/2020 12 :00:00 AM EST - 09/03/2020 12:00:00 AM EST [facility] ([facility]) TRANSFERASE (AST) (SGOT) 09/03/2020 12:0 0:00 AM EST - 09/03/2020 12:00:00 AM EST [facility] ([facility]) ASSAY OF CREATININE 09/03/2020 12:00:00 AM EST - 09/03 12:00:00 AM EST [facility] ([facility]) C-REACTIVE PROTEIN 09/03/2020 12:00:00 AM EST - 2019 12:00:00 AM EST [facility] ([facility]) RBC SED RATE, AUTOMATED 09/03/2020 12:00 :00 AM EST - 09/03/2020 12:00:00 AM EST [facility] ([facility]) COMPLETE CBC W/AUTO DIFF WBC 09/03/2020 12:00:00 AM EST - 09/03/2020 12:00:00 AM EST [facility] ([facility]) ROUTINE VENIPUNCTURE 09/03/2020 12:00:00 AM EST - 09/03/2020 12:00:00 AM EST [facility] ([facility]) BIOPSY TONGUE ANTERIOR TWO-THIRDS 08/15/2020 12:00:00 AM [facility] Ekg With Interpretation and Report Ekg With Interpretation a nd Report 08/05/2020 12:00:00 AM EST [facility] ([facility]) Remove Impacted Cerumen 07/17/2020 12:00:00 AM EST [facility] Normal saline solution infus 05/27/2020 12:00:00 AM EDT - 05/27/2020 12:00:00 AM EDT [facility] ([facility]) Infliximab injection Remicade 05/27/2020 12:00:00 AM EDT - 05/27/2020 12:00:00 AM EDT [facility] ([facility]) CHEMO, IV INFUSION, ADDL HR 05/27/2020 1 2:00:00 AM EDT - 05/27/2020 12:00:00 AM EDT [facility] ([facility]) CHEMO, IV INFUSION, 1 HR 05/27/2020 12:0 0:00 AM EDT - 05/27/2020 12:00:00 AM EDT [facility] ([facility]) OFFICE/OUTPATIENT VISIT, EST 05/16/2020 12:00:00 AM EDT - 05/16/2020 12:00:00 AM EDT [facility] ([facility]) ALANINE AMINO (ALT) (SGPT) 05/16/2020 12 :00:00 AM EDT - 05/16/2020 12:00:00 AM EDT [facility] ([facility]) TRANSFERASE (AST) (SGOT) 05/16/2020 12:0 0:00 AM EDT - 05/16/2020 12:00:00 AM EDT [facility] ([facility]) ASSAY OF CREATININE 05/16/2020 12:00:00 AM EDT - 05/16 12:00:00 AM EDT [facility] ([facility]) C-REACTIVE PROTEIN 05/16/2020 12:00:00 AM EDT - 2019 12:00:00 AM EDT [facility] ([facility]) RBC SED RATE, AUTOMATED 05/16/2020 12:00 :00 AM EDT - 05/16/2020 12:00:00 AM EDT [facility] ([facility]) COMPLETE CBC W/AUTO DIFF WBC 05/16/2020 12:00:00 AM EDT - 05/16/2020 12:00:00 AM EDT [facility] ([facility]) ROUTINE VENIPUNCTURE 05/16/2020 12:00:00 AM EDT - 05/16/2020 12:00:00 AM EDT [facility] ([facility]) Normal saline solution infus 04/29/2020 12:00:00 AM EDT - 04/29/2020 12:00:00 AM EDT [facility] ([facility]) Infliximab injection Remicade 04/29/2020 12:00:00 AM EDT - 04/29/2020 12:00:00 AM EDT [facility] ([facility]) CHEMO, IV INFUSION, ADDL HR 04/29/2020 1 2:00:00 AM EDT - 04/29/2020 12:00:00 AM EDT [facility] ([facility]) CHEMO, IV INFUSION, 1 HR 04/29/2020 12:0 0:00 AM EDT - 04/29/2020 12:00:00 AM EDT [facility] ([facility]) Normal saline solution infus 04/01/2020 12:00:00 AM EDT - 04/01/2020 12:00:00 AM EDT [facility] ([facility]) Infliximab injection Remicade 04/01/2020 12:00:00 AM EDT - 04/01/2020 12:00:00 AM EDT [facility] ([facility]) CHEMO, IV INFUSION, ADDL HR 04/01/2020 1 2:00:00 AM EDT - 04/01/2020 12:00:00 AM EDT [facility] ([facility]) CHEMO, IV INFUSION, 1 HR 04/01/2020 12:0 0:00 AM EDT - 04/01/2020 12:00:00 AM EDT [facility] ([facility]) Suture Removal 02/15/2020 12:00:00 AM EDT [facility]CW1 ([facility]) PHONE E/M BY LEBRON 5-10 MIN 02/14/2020 12 :00:00 AM EDT - 02/14/2020 12:00:00 AM EDT [facility] ([facility]) Normal saline solution infus 02/05/2020 12:00:00 AM EDT - 02/05/2020 12:00:00 AM EDT [facility] ([facility]) Infliximab injection Remicade 02/05/2020 12:00:00 AM EDT - 02/05/2020 12:00:00 AM EDT [facility] ([facility]) CHEMO, IV INFUSION, ADDL HR 02/05/2020 1 2:00:00 AM EDT - 02/05/2020 12:00:00 AM EDT [facility] ([facility]) CHEMO, IV INFUSION, 1 HR 02/05/2020 12:0 0:00 AM EDT - 02/05/2020 12:00:00 AM EDT [facility] ([facility]) ALANINE AMINO (ALT) (SGPT) 02/05/2020 12 :00:00 AM EDT - 02/05/2020 12:00:00 AM EDT [facility] ([facility]) TRANSFERASE (AST) (SGOT) 02/05/2020 12:0 0:00 AM EDT - 02/05/2020 12:00:00 AM EDT [facility] ([facility]) ASSAY OF CREATININE 02/05/2020 12:00:00 AM EDT - 02/04 12:00:00 AM EDT [facility] ([facility]) C-REACTIVE PROTEIN 02/05/2020 12:00:00 AM EDT - 2019 12:00:00 AM EDT [facility] ([facility]) RBC SED RATE, AUTOMATED 02/05/2020 12:00 :00 AM EDT - 02/05/2020 12:00:00 AM EDT [facility] ([facility]) COMPLETE CBC W/AUTO DIFF WBC 02/05/2020 12:00:00 AM EDT - 02/05/2020 12:00:00 AM EDT [facility] ([facility]) ROUTINE VENIPUNCTURE 02/05/2020 12:00:00 AM EDT - 02/05/2020 12:00:00 AM EDT [facility] ([facility]) DESTRUCT LESION, 1-14 01/23/2020 12:00:00 AM EDT [facility]CW1 ([facility]) EXC TR-EXT B9 CHANA 1.1-2 CM 01/23/2020 12:00:00 AM EDT [facility] ([facility]) INTMD RPR S/A/T/EXT 2.6-7.5 01/23/2020 12:00:00 AM EDT [facility]CW1 ([facility]) ESTABILISHED PATIENT [facility] FACILITY CHARGE 020 12:00:00 AM EDT [facility]CW1 ([facility]) Normal saline solution infus 12/25/2019 12:00:00 AM EDT - 12/25/2019 12:00:00 AM EDT [facility] ([facility]) Infliximab injection Remicade 12/25/2019 12:00:00 AM EDT - 12/25/2019 12:00:00 AM EDT [facility] ([facility]) CHEMO, IV INFUSION, ADDL HR 12/25/2019 1 2:00:00 AM EDT - 12/25/2019 12:00:00 AM EDT [facility] ([facility]) CHEMO, IV INFUSION, 1 HR 12/25/2019 12:0 0:00 AM EDT - 12/25/2019 12:00:00 AM EDT [facility] ([facility]) Normal saline solution infus 11/27/2019 12:00:00 AM EDT - 11/27/2019 12:00:00 AM EDT [facility] ([facility]) Infliximab injection Remicade 11/27/2019 12:00:00 AM EDT - 11/27/2019 12:00:00 AM EDT [facility] ([facility]) CHEMO, IV INFUSION, ADDL HR 11/27/2019 1 2:00:00 AM EDT - 11/27/2019 12:00:00 AM EDT [facility] ([facility]) CHEMO, IV INFUSION, 1 HR 11/27/2019 12:0 0:00 AM EDT - 11/27/2019 12:00:00 AM EDT [facility] ([facility]) Normal saline solution infus 10/30/2019 12:00:00 AM EST - 10/30/2019 12:00:00 AM EST [facility] ([facility]) Infliximab injection Remicade 10/30/2019 12:00:00 AM EST - 10/30/2019 12:00:00 AM EST [facility] ([facility]) CHEMO, IV INFUSION, ADDL HR 10/30/2019 1 2:00:00 AM EST - 10/30/2019 12:00:00 AM EST [facility] ([facility]) CHEMO, IV INFUSION, 1 HR 10/30/2019 12:0 0:00 AM EST - 10/30/2019 12:00:00 AM EST [facility] ([facility]) Office Visit, New Pt., Level 4 PC 10/26/2019 12:00:00 AM EST [email or web address] (Formerly [facility], [facility]) TANGNTL BX SKIN SINGLE LES 10/26/2019 12:00:00 AM EST [email or web address] ([facility], [facility]) OFFICE/OUTPATIENT VISIT, EST 10/11/2019 12:00:00 AM EST - 10/11/2019 12:00:00 AM EST [facility] ([facility]) ALANINE AMINO (ALT) (SGPT) 10/11/2019 12 :00:00 AM EST - 10/11/2019 12:00:00 AM EST [facility] ([facility]) TRANSFERASE (AST) (SGOT) 10/11/2019 12:0 0:00 AM EST - 10/11/2019 12:00:00 AM EST [facility] ([facility]) ASSAY OF CREATININE 10/11/2019 12:00:00 AM EST - 10/11 12:00:00 AM EST [facility] ([facility]) C-REACTIVE PROTEIN 10/11/2019 12:00:00 AM EST - 2019 12:00:00 AM EST [facility] ([facility]) RBC SED RATE, AUTOMATED 10/11/2019 12:00 :00 AM EST - 10/11/2019 12:00:00 AM EST [facility] ([facility]) COMPLETE CBC W/AUTO DIFF WBC 10/11/2019 12:00:00 AM EST - 10/11/2019 12:00:00 AM EST [facility] ([facility]) ROUTINE VENIPUNCTURE 10/11/2019 12:00:00 AM EST - 10/11/2019 12:00:00 AM EST [facility] ([facility]) Normal saline solution infus 10/02/2019 12:00:00 AM EST - 10/02/2019 12:00:00 AM EST [facility] ([facility]) Infliximab injection Remicade 10/02/2019 12:00:00 AM EST - 10/02/2019 12:00:00 AM EST [facility] ([facility]) CHEMO, IV INFUSION, ADDL HR 10/02/2019 1 2:00:00 AM EST - 10/02/2019 12:00:00 AM EST [facility] ([facility]) CHEMO, IV INFUSION, 1 HR 10/02/2019 12:0 0:00 AM EST - 10/02/2019 12:00:00 AM EST [facility] ([facility]) [facility] ([facility]) visit, established patient; a medically-necessary, [id number] encounter (one-on-one) between an established patient and a formerly [facility] practitioner during which time one or more formerly [facility] services are rendered and includes a typical bundle of medicare-covered services that would be furnished bending press operator to a patient receiving a fq visit HC Visit, established patient 09/18/2019 12:00:00 AM EST [facility] ([facility]) Normal saline solution infus 09/04/2019 12:00:00 AM EST - 09/04/2019 12:00:00 AM EST [facility] ([facility]) Infliximab injection Remicade 09/04/2019 12:00:00 AM EST - 09/04/2019 12:00:00 AM EST [facility] ([facility]) CHEMO, IV INFUSION, ADDL HR 09/04/2019 1 2:00:00 AM EST - 09/04/2019 12:00:00 AM EST [facility] ([facility]) CHEMO, IV INFUSION, 1 HR 09/04/2019 12:0 0:00 AM EST - 09/04/2019 12:00:00 AM EST [facility] ([facility]) DESTROY LUMB/SAC FACET JNT 08/21/2019 12:00:00 AM EST [email or web address] ([facility]ly [facility]) DESTROY L/S FACET JNT ADDL 08/21/2019 12:00:00 AM EST [email or web address] ([facility]) RADXPS IN END [id number] PXD 08/21/2019 12:00:00 AM ES T eCW1 ([facility], [facility]) Results ID Date Data Source [id number] 09/21/2020 10:00:00 AM EST [facility] Name Value Range Interpretation Code Description Data Lucille rce(s) Supporting Document(s) SARS coronavirus 2 RNA Not Detected [facility] [place] This lab was ordered by [facility] and reported by [facility]. ID Date Data Source [id number] 09/03/2020 11:43:00 AM EST [facility] ([facility]) Name Value Range Interpretation Code Description Data Lucille rce(s) Supporting Document(s) <0.2 0.0-0.5 CRP [facility] ([facility]) ID Date Data Source [id number] 09/03/2020 11:43:00 AM EST [facility] ([facility]) Name Value Range Interpretation Code Description Data Lucille rce(s) Supporting Document(s) 53.1 mL/min/1.73 eGFR [place] [facility] ([facility]) 1.5 mg/dL 0.9-1.2 Above high normal CREATININE [facility] ([facility]) 45.9 mL/min/1.73m eGFR Non- A merican [facility] ([facility]) ID Date Data Source [id number] 09/03/2020 11:43:00 AM EST [facility] ([facility]) Name Value Range Interpretation Code Description Data Lucille rce(s) Supporting Document(s) 19 U/L 15-37 AST [facility]) ID Date Data Source [id number] 09/03/2020 11:43:00 AM EST [facility] ([facility]) Name Value Range Interpretation Code Description Data Lucille rce(s) Supporting Document(s) 34 U/L 30-65 ALT [facility] ([facility]) ID Date Data Source [id number] 09/03/2020 11:43:00 AM EST [facility] ([facility]) Name Value Range Interpretation Code Description Data Lucille rce(s) Supporting Document(s) 11 mm/Hr 0-20 ESR [facility]) ID Date Data Source [id number] 09/03/2020 11:43:00 AM EST [facility] ([facility]) Name Value Range Interpretation Code Description Data Lucille rce(s) Supporting Document(s) 5.81 10*6/uL 4.00-5.90 RBC [facility] ([facility]) 7.0 10*3/uL 3.7-10.1 WBC [facility] ([facility]) 52.7 % 39.0-55.0 HCT [facility] ([facility]) 17.1 g/dL 13.5-18.0 HGB [facility] ([facility]) 90.8 fL 70.0-100.0 MCV [facility] ([facility]) 12.4 % 10.0-15.0 RDW [facility] ([facility]) 29.4 pg 26.0-34.0 MCH [facility] ([facility]) 32.4 g/dL 31.0-37.0 MCHC [facility] ([facility]) 6.1 fL 6.0-10.0 MPV [facility] ([facility]) 260 10*3/uL 150-500 PLATELETS [facility] ([facility]) 4.09 10*3/uL 2.10-8.00 MARGIE# [facility] ([facility]) 0.3 10*3/uL 0.0-0.5 EOS# [facility] ([facility]) 1.90 10*3/uL 1.00-5.00 LYM# [facility] ([facility]) 0.58 10*3/uL 0.10-1.00 MONO# [facility] ([facility]) 58.9 % 50.0-80.0 MARGIE% [facility] 0.1 10*3/uL 0.0-0.2 BASO# [facility] ([facility]) 27.4 % 25.0-50.0 LYM% [facility] 8.4 % 2.0-10.0 MONO% [facility] 4.2 % 0.0-5.0 EOS% [facility]) 1.2 % 0.0-4.0 BASO% [facility]) ID Date Data Source [id number] 08/27/2020 03:04:00 PM EST [facility] ([facility]) Name Value Range Interpretation Code Description Data Lucille rce(s) Supporting Document(s) Creatinine For GFR 1.57 mg/dL 0.70-1.30 Above high normal [facility] ([facility]) Glomerular Filtration Rate 46.5 Normal (applies to n on-numeric results) [facility] <content>Units are mL/min/1.73 m2</content>
<content></content>
<content>Chronic Kidney Disease Staging per NKF:</content>
<content></content>
<content>Stage I & II GFR >=60 Normal to Mildly Decreased</content>
<content>Stage III GFR 30- 59 Moderately Decreased</content>
<content>Stage IV GFR 15-29 Severely Decreased</content>
<content>Stage V GFR <15 Very Little GFR Left</content>
<content>ESRD GFR <15 on [employer]</content>
<content></content> ID Date Data Source [id number] 08/27/2020 03:04:00 PM EST [facility] ([facility]) Name Value Range Interpretation Code Description Data Lucille rce(s) Supporting Document(s) Urea nitrogen [Mass/volume] in Serum or Plasma 23 mg/dL 7-18 Above high normal [facility] ([facility]) ID Date Data Source [id number] 08/15/2020 09:36:00 AM EST [facility] ([facility]) Name Value Range Interpretation Code Description Data Lucille rce(s) Supporting Document(s) Surgical pathology study Laboratory test result [facility] ([facility]) FINAL DIAGNOSIS A-Left lateral oral tongue, superior, 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 B-Left lateral oral tongue, inferior, biopsy: Invasive squamous carcinoma, well to moderately differentiated. 08/16/2020 - 1310 CLINICAL DIAGNOSIS Left oral tongue leukoplakia 08/15/2020 - 135 GROSS DIAGNOSIS A - Received in formalin [...] 1356 Signed ARTURO PACHECO MD 08/16/2020 1310 ID Date Data Source [id number] 08/15/2020 07:12:00 AM EST [facility] ([facility]) Name Value Range Interpretation Code Description Data Lucille rce(s) Supporting Document(s) Glucose [Mass/volume] in Capillary blood by Glucometer 152 mg/dL 83-110 Above high normal [facility] ([facility]) ID Date Data Source [id number] 08/10/2020 11:45:00 AM EST [facility] Name Value Range Interpretation Code Description Data Lucille rce(s) Supporting Document(s) SARS coronavirus 2 RNA [facility] This lab was ordered by [facility] and reported by [facility]. ID Date Data Source [id number] 08/05/2020 09:50:00 AM EST [facility] ([facility]) Name Value Range Interpretation Code Description Data Lucille rce(s) Supporting Document(s) Hemoglobin A1c/Hemoglobin.total in Blood 7.0 Abnormal (applies to non-numeric results) Hgb A1c [place] [facility] ID Date Data Source [id number] 06/26/2020 12:00:00 AM EDT [facility] Name Value Range Interpretation Code Description Data Lucille rce(s) Supporting Document(s) SARS coronavirus 2 Ag [facility] This lab was ordered by [facility] and reported by [facility]. ID Date Data Source [id number] 05/16/2020 10:18:00 AM EDT [facility] ([facility]) Name Value Range Interpretation Code Description Data Lucille rce(s) Supporting Document(s) <0.2 0.0-0.5 [facility]) ID Date Data Source [id number] 05/16/2020 10:18:00 AM EDT [facility]) Name Value Range Interpretation Code Description Data Lucille rce(s) Supporting Document(s) 1.4 mg/dL 0.9-1.2 Above high normal [facility]INE [facility] ([facility]) 49.8 mL/min/1.73m eGFR [facility]) ID Date Data Source [id number] 05/16/2020 10:18:00 AM EDT [facility] ([facility]) Name Value Range Interpretation Code Description Data Lucille rce(s) Supporting Document(s) 24 U/L 15-37 AST [facility] ([facility]) ID Date Data Source [id number] 05/16/2020 10:18:00 AM EDT [facility] ([facility]) Name Value Range Interpretation Code Description Data Lucille rce(s) Supporting Document(s) 26 U/L 30-65 Below low normal ALT [facility] ([facility]) ID Date Data Source [id number] 05/16/2020 10:18:00 AM EDT [facility] ([facility]) Name Value Range Interpretation Code Description Data Lucille rce(s) Supporting Document(s) 22 mm/Hr 0-20 Above high normal ESR [facility] ([facility] ID Date Data Source [id number] 05/16/2020 10:18:00 AM EDT [facility] ([facility]) Name Value Range Interpretation Code Description Data Lucille rce(s) Supporting Document(s) 7.7 10*3/uL 3.7-10.1 WBC [facility] ([facility]) 5.94 10*6/uL 4.00-5.90 Above high normal RBC [facility] ([facility]) 53.6 % 39.0-55.0 HCT [facility] 17.0 g/dL 13.9-18.0 HGB [facility] ([facility]) 90.2 fL 70.0-100.0 MCV [facility] ([facility]) 28.7 pg 26.0-34.0 MCH [facility] 31.8 g/dL 31.0-37.0 MCHC [facility] 269 10*3/uL 150-500 PLATELETS [facility] ([facility]) 12.6 % 10.0-15.0 RDW [facility] 6.3 fL 6.0-10.0 MPV [facility] ([facility]) 4.24 10*3/uL 2.10-8.00 MARGIE# [facility] ([facility]) 2.26 10*3/uL 1.00-5.00 LYM# [facility] ([facility]) 0.60 10*3/uL 0.10-1.00 MONO# [facility] ([facility]) 0.5 10*3/uL 0.0-0.5 EOS# [facility] ([facility]) 0.1 10*3/uL 0.0-0.2 BASO# [facility] ([facility]) 55.4 % 50.0-80.0 MARGIE% [facility] 29.5 % 25.0-50.0 LYM% [facility] 7.9 % 2.0-10.0 MONO% [facility] 1.1 % 0.0-4.0 BASO% [facility]) 6.1 % 0.0-5.0 Above high normal EOS% [facility] ([facility]) ID Date Data Source [id number] 03/11/2020 09:45:00 AM EDT [facility] Name Value Range Interpretation Code Description Data Lucille rce(s) Supporting Document(s) SARS coronavirus 2 RNA [facility] This lab was ordered by [facility] and reported by [facility]. ID Date Data Source [id number] 02/05/2020 09:03:00 AM EDT [facility] ([facility]) Name Value Range Interpretation Code Description Data Lucille rce(s) Supporting Document(s) <0.2 0.0-1.0 CRP [facility]) ID Date Data Source [id number] 02/05/2020 09:03:00 AM EDT [facility] ([facility]) Name Value Range Interpretation Code Description Data Lucille rce(s) Supporting Document(s) 46.1 mL/min/1.73m eGFR [facility] ([facility]) 1.5 mg/dL 0.9-1.2 Above high normal CREATININE [facility] ([facility]) ID Date Data Source [id number] 02/05/2020 09:03:00 AM EDT [facility] ([facility]) Name Value Range Interpretation Code Description Data Lucille rce(s) Supporting Document(s) 26 U/L 15-37 AST [facility]) ID Date Data Source [id number] 02/05/2020 09:03:00 AM EDT [facility] ([facility]) Name Value Range Interpretation Code Description Data Lucille rce(s) Supporting Document(s) 22 U/L 30-65 Below low normal ALT [facility] ([facility]) ID Date Data Source [id number] 02/05/2020 09:03:00 AM EDT [facility] ([facility]) Name Value Range Interpretation Code Description Data Lucille rce(s) Supporting Document(s) 16 mm/Hr 0-20 ESR [facility]) ID Date Data Source [id number] 02/05/2020 09:03:00 AM EDT [facility] ([facility]) Name Value Range Interpretation Code Description Data Lucille rce(s) Supporting Document(s) 7.9 10*3/uL 3.7-10.1 WBC [facility] ([facility]) 5.57 10*6/uL 4.00-5.90 RBC [facility] ([facility]) 16.0 g/dL 13.9-18.0 HGB [facility]) 90.8 fL 70.0-100.0 MCV [facility] ([facility]) 50.6 % 39.0-55.0 HCT [facility] ([facility]) 28.7 pg 26.0-34.0 MCH [facility] ([facility]) 31.6 g/dL 31.0-37.0 MCHC [facility] ([facility]) 12.2 % 10.0-15.0 RDW [facility] ([facility]) 4.63 10*3/uL 2.10-8.00 MARGIE# [facility] ([facility]) 6.3 fL 6.0-10.0 MPV [facility]) 254 10*3/uL 150-500 PLATELETS [facility] ([facility]) 0.67 10*3/uL 0.10-1.00 MONO# [facility] ([facility]) 2.02 10*3/uL 1.00-5.00 LYM# [facility] ([facility]) 0.4 10*3/uL 0.0-0.5 EOS# [facility] ([facility]) 59.0 % 50.0-80.0 MARGIE% [facility] 0.1 10*3/uL 0.0-0.2 BASO# [facility] ([facility]) 8.6 % 2.0-10.0 MONO% [facility]) 25.8 % 25.0-50.0 LYM% [facility]) 5.4 % 0.0-5.0 Above high normal EOS% [facility] ([facility]) 1.2 % 0.0-4.0 BASO% [facility] ID Date Data Source [id number] 01/27/2020 09:15:00 AM EDT [facility] Name Value Range Interpretation Code Description Data Lucille rce(s) Supporting Document(s) SARS CORONAVIRUS 2 RNA [facility] This lab was ordered by [facility] and reported by [facility]. ID Date Data Source [id number] 10/11/2019 10:58:00 AM EST [facility] ([facility]) Name Value Range Interpretation Code Description Data Lucille rce(s) Supporting Document(s) <0.2 0.0-1.0 CRP [facility]) ID Date Data Source [id number] 10/11/2019 10:58:00 AM EST [facility] ([facility]) Name Value Range Interpretation Code Description Data Lucille rce(s) Supporting Document(s) 54.4 mL/min/1.73m eGFR [facility] ([facility]) 1.3 mg/dL 0.9-1.2 Above high normal CREATININE [facility] ([facility]) ID Date Data Source [id number] 10/11/2019 10:58:00 AM EST [facility] ([facility]) Name Value Range Interpretation Code Description Data Lucille rce(s) Supporting Document(s) 23 U/L 15-37 AST [facility] ID Date Data Source [id number] 10/11/2019 10:58:00 AM EST [facility] ([facility]) Name Value Range Interpretation Code Description Data Lucille rce(s) Supporting Document(s) 22 U/L 30-65 Below low normal ALT [facility] ([facility]) ID Date Data Source [id number] 10/11/2019 10:58:00 AM EST [facility] ([facility]) Name Value Range Interpretation Code Description Data Lucille rce(s) Supporting Document(s) 16 mm/Hr 0-20 ESR [facility]) ID Date Data Source [id number] 10/11/2019 10:58:00 AM EST [facility] ([facility]) Name Value Range Interpretation Code Description Data Lucille rce(s) Supporting Document(s) 7.1 10*3/uL 3.7-10.1 WBC [facility] ([facility]) 47.3 % 39.0-55.0 HCT [facility] 5.33 10*6/uL 4.00-5.90 RBC [facility] ([facility]) 15.5 g/dL 13.9-18.0 HGB [facility] ([facility]) 29.1 pg 26.0-34.0 MCH [facility] ([facility]) 32.8 g/dL 31.0-37.0 MCHC [facility] 88.8 fL 70.0-100.0 MCV [facility] ([facility]) 267 10*3/uL 150-500 PLATELETS [facility] ([facility]) 6.2 fL 6.0-10.0 MPV [facility]) 13.1 % 10.0-15.0 RDW [facility] ([facility]) 0.59 10*3/uL 0.10-1.00 MONO# [facility] ([facility]) 2.53 10*3/uL 1.00-5.00 LYM# [facility] ([facility]) 3.51 10*3/uL 2.10-8.00 MARGIE# [facility] ([facility]) 0.4 10*3/uL 0.0-0.5 EOS# [facility] ([facility]) 0.1 10*3/uL 0.0-0.2 BASO# [facility] ([facility]) 49.6 % 50.0-80.0 Below low normal MARGIE% [facility]) 8.4 % 2.0-10.0 MONO% [facility] 1.0 % 0.0-4.0 BASO% [facility]) 5.4 % 0.0-5.0 Above high normal EOS% [facility] ([facility]) 35.7 % 25.0-50.0 LYM% [facility] ID Date Data Source [id number] 09/22/2019 12:00:00 AM EST [facility] Carmen Del Rio DO Patient Name: DEANNA CLAUDIO Date of : 1950[place][birth year] [id number] Date of Exam: 09/22/2019#: Fax: [phone] EXAM: US ABDOMEN, LIMITED SINGLE ORGAN,QUADRANTCLINICAL INFORMATION: Nausea.Realtime sonographic evaluation of the right upper quadrant is performed.The gallbladder demonstrates no evidence of intraluminal sludge or calculi,wall thickening or pericholecystic fluid. There is no intrahepatic orextrahepatic biliary dilatation, common bile duct measuring 5 mm. Theliver demonstrates increased echo texture diffusely suggesting diffusefibrofatty infiltration. No gross liver or pancreatic mass is seen. Rightkidney demonstrates no hydronephrosis with normal size at 14.1 cm inlength, RI 0.57 with duplex Doppler evaluation. Cyst in the upper pole ofthe right kidney measures 1.3 x 1.7 x 1.5 cm. Abdominal aorta is not wellvisualized. Inferior vena cava appears patent.IMPRESSION:Diffuse fibrofatty infiltration of the liver. Right renal cyst. Nogallstones, biliary dilatation or free fluid.Accredited by the [employer] in General Ultrasound.AQUILINO Licona/Andrea you for referring TYE CLAUDOI to our office. Electronically Signed - ANDRES CHAN MD 09/22/19 17:19 Name Value Range Interpretation Code Description Data Lucille rce(s) Supporting Document(s) ID Date Data Source [id number] 09/18/2019 01:18:00 PM EST [facility] [id number] [place], [place] [address]TEABEHN NAME: NNAMDI CLAUDIO OF : 1950REPORT: DISCHARGE SUMMARYPATIENT NUMBER: [id number] STATUS: IPMEDICAL RECORD NUMBER: [id number] OF ADMISSION: 09/11/2019DATE OF DISCHARGE: 09/15/2019ROOM: 02DATE OF ADMISSION: 09/11/2019DATE OF DISCHARGE: 09/15/2019ADMITTING DIAGNOSIS: Fever.DISCHARGE DIAGNOSIS: Fever.SECONDARY DISCHARGE DIAGNOSES:1. Pulmonary nodule with one year followup recommended.2. Right thyroid nodule, followup recommended.3. Diabetes mellitus type 2, insulin dependent.4. Constipation.5. Dehydration.6. Obstructive sleep apnea.7. Generalized weakness, now improved.8. Hypertension.9. Chronic back pain.10. Depression.PERTINENT IMAGING: CT of the abdomen and pelvis on admission 09/11/2019,mildly increased stool throughout the colon without obstruction. Smallfat-containing umbilical hernia. Subcentimeter hypodensity in the rightkidney, too small to characterize. Small hiatal hernia.Two views, chest x-ray, 09/11/2019 - minimal left basilar atelectasisversus scar. No pneumonia or acute consolidation.CT chest - right- sided pulmonary nodules measuring up to [address] recommended. A 3.8 x 2.9 cm hypodense right thyroid nodule,appropriate followup recommended.Thyroid nodule, 3.9 cm complex nodule in the right lobe of the thyroidgland.HOSPITAL COURSE: Mr. Claudio is a very pleasant 69-year-old male presentswith fever, rigors of couple of days. No obvious source of infection wasfound on admission. He was started on gentle antibiotics, ceftriaxone,azithromycin for possible pulmonary source. Further imaging is as above. The patient does have a thyroid nodule, which will require further workupin the outpatient setting. I did discuss briefly about potentiallypursuing this workup in the hospital. However, given that Wednesday afternoonnothing would be able to be done for several days. He was stable fo rdischarge. Therefore, we made the decision not to keep him over theweekend just to get this done in-house. I defer that to you for furthermanagement.Further history after admission did indicate that the patient had a tickexposure sometime last summer. He remembers taking a round reddish lesionaround the tick site. Given this information, he was transitioned fromceftriaxone and azithromycin to doxycycline. Within a couple hours,starting to doxycycline he has now become afebrile and his symptoms aresignificantly improved. He has now gone 60 hours without fever and thoughhe still nauseous. The GI symptoms do seem to have improved significantly.He is tolerating his diet and his appetite is better. Given the rapidimprovement with initiation of doxycycline, at which time he wastransitioned over to oral doxy today with plan to complete 14 days oftherapy. He is also going to be [facility] symptomaticmanagement. No other changes to his medications were made.DISCHARGE PHYSICAL EXAMINATION: Lungs are clear. Heart sounds normal. Abdomen is soft. Good peripheral pulses. No edema.Followup will be with Dr. Carmen Kelley. Activities as tolerated. Dietlow carbohydrate. Patient has been instructed return to the ER withworsening of symptoms or persistent fevers or GI symptoms.ADDENDUM: The patient's blood pressure medications will be held at thetime of discharge. He has been off of these now for a couple of days anddoes seem to be improved without them.Total time of discharge 35 minutes.DICTATED BY: BECKY Berumenictated: 09/15/2019 15:45DT: 09/15/2019 15:55Job #: [id number]:NOTE: [facility] computer generated reports are notconfirmed or authenticated unless they are signed by the providerElectronically Authenticated by:KARLO GOODWIN DO On 09/18/2019 01:18 PM EST Name Value Range Interpretation Code Description Data Lucille rce(s) Supporting Document(s) ID Date Data Source [id number] 09/15/2019 01:01:16 PM EST [facility] Name Value Range Interpretation Code Description Data Lucille rce(s) Supporting Document(s) POC GLUCOSE 163 mg/dL (70-99) H [facility] NOTIFIED NURSEPERFORMED BY CH CLINICAL S TAFF ID Date Data Source [id number] 09/15/2019 09:23:05 AM EST [facility] Name Value Range Interpretation Code Description Data Lucille rce(s) Supporting Document(s) POC GLUCOSE 138 mg/dL (70-99) H [facility] PERFORMED BY CLINICAL STAFF ID Date Data Source [id number] 09/15/2019 08:24:00 AM EST [facility] DATE OF EXAM: 09/15/2019EXAM: Thyroid U ltrasound INDICATION: FOLLOW UP ON CT CHEST FINDING COMPARISON: None. The thyroid has a mildly inhomogeneous pattern of echogenicity. The right lobe measures 5.3 x 4.1 x 3.9 cm. In the mid region there is a 3.9 x 3.6 x 3.2 cm complex nodule. The left lobe measures 4.0 x 1.6 x 1.7 cm. No discrete nodule is seen. The isthmus measures 3.3 mm in width. Doppler evaluation demonstrates normal vascular flow pattern which is bilaterally symmetric. No abnormal lymph nodes are seen. IMPRESSION: 3.9 cm complex nodule in the mid right lobe of the thyroid gland. Further evaluation with biopsy is recommended.. Professional interpretation performed at [facility] .End of diagnostic report for accession: [id number] Interpreted: Aubrey Martinez MDTranscribed: 09/15/2019 08:21 AMSigned: 09/15/2019 08:24 AM Aubrey Martinez MD N: [id number] [facility] # [id number] [facility] # [id number] Name Value Range Interpretation Code Description Data Lucille rce(s) Supporting Document(s) ID Date Data Source [id number] 09/15/2019 08:08:48 AM EST [facility] Name Value Range Interpretation Code Description Data Lucille rce(s) Supporting Document(s) SODIUM 138 mmol/L (136-145) [facility] POTASSIUM 4.4 mmol/L (3.6-5.2) [facility] CHLORIDE 106 mmol/L (100-108) [facility] CO2 24 mmol/L (22-31) [facility] ANION GAP 8 mmol/L (7-16) [facility] UREA NITROGEN 16 mg/dL (7-24) [facility] CREATININE 1.13 mg/dL (0.80-1.30) [facility] BUN/CREAT RATIO 14.2 RATIO (10.0-20.0) [facility] GLUCOSE 141 mg/dL (70-99) [facility] CALCIUM 8.6 mg/dL (8.4-10.2) [facility] GFR >60 ml/min/1.73m2 (>59) [facility] GFR ( AMER) >60 ml/min/1.73m2 (>59) [facility] GFR INTERPRETATION [facility] --NORMAL KIDNEY FUNCTION OR MILD DISEASE - GFR >OR= 60CHRONIC KIDNEY DISEASE - GFR 15 - 59RENAL FAILURE - GFR <15 Est. GFR calculation based on the MDRDstudy equation, which assumes a steadystate for creatinine. Est. GFR should notbe used for medication dosing. ID Date Data Source [id number] 09/15/2019 07:49:04 AM EST [facility] Name Value Range Interpretation Code Description Data Lucille rce(s) Supporting Document(s) WBC 5.4 10*3/uL (4.1-11.0) [facility] RBC 4.27 10*6/uL (4.60-6.10) L [facility] HGB 12.3 g/dL (13.5-18.0) L [facility] HCT 37.0 % (41.0-53.0) L [facility] MCV 86.5 fL (80.0-95.0) [facility] MCH 28.8 pg (27.0-32.0) [facility] MCHC 33.3 g/dL (32.0-36.0) [facility] RDW 14.2 % (10.5-14.5) [facility] PLT 187 10*3/uL (150-450) [facility] MPV 7.7 fL (7.1-10.7) [facility] NEUT % 51.4 % (35.0-75.0) [facility] LYMPH % 34.0 % (16.0-52.0) [facility] MONO % 12.3 % (0.0-8.0) H [facility] EOS % 1.7 % (0.0-5.0) [facility] BASO % 0.6 % (0.0-4.0) [facility] NEUT # 2.8 10*3/uL (1.8-7.7) [facility] LYMPH # 1.8 10*3/uL (1.2-4.8) [facility] MONO # 0.7 10*3/uL (0.0-0.8) [facility] Eosinophils [#/volume] in Blood by Automated count 0.1 10*3/uL (0.0-0 .5) [facility] BASO # 0.0 10*3/uL (0.0-0.2) [facility] ID Date Data Source [id number] 09/14/2019 10:15:27 PM EST [facility] Name Value Range Interpretation Code Description Data Lucille rce(s) Supporting Document(s) POC GLUCOSE 130 mg/dL (70-99) H [facility] PERFORMED BY CLINICAL STAFF ID Date Data Source [id number] 09/14/2019 04:56:19 PM EST [facility] Name Value Range Interpretation Code Description Data Lucille rce(s) Supporting Document(s) POC GLUCOSE 155 mg/dL (70-99) H [facility] NOTIFIED NURSEPERFORMED BY CLINICAL S TAFF ID Date Data Source [id number] 09/14/2019 12:28:39 PM EST [facility] Name Value Range Interpretation Code Description Data Lucille rce(s) Supporting Document(s) POC GLUCOSE 192 mg/dL (70-99) H [facility] NOTIFIED NURSEPERFORMED BY CLINICAL S TAFF ID Date Data Source [id number] 09/14/2019 08:14:03 AM EST [facility] Name Value Range Interpretation Code Description Data Lucille rce(s) Supporting Document(s) POC GLUCOSE 145 mg/dL (70-99) H [facility] PERFORMED BY CLINICAL STAFF ID Date Data Source [id number] 09/14/2019 08:43:45 AM EST [facility] Name Value Range Interpretation Code Description Data Lucille rce(s) Supporting Document(s) SODIUM 138 mmol/L (136-145) [facility] POTASSIUM 4.4 mmol/L (3.6-5.2) [facility] CHLORIDE 107 mmol/L (100-108) [facility] CO2 23 mmol/L (22-31) [facility] ANION GAP 8 mmol/L (7-16) [facility] UREA NITROGEN 16 mg/dL (7-24) [facility] CREATININE 1.21 mg/dL (0.80-1.30) [facility] BUN/CREAT RATIO 13.2 RATIO (10.0-20.0) [facility] GLUCOSE 132 mg/dL (70-99) H [facility] CALCIUM 8.3 mg/dL (8.4-10.2) L [facility] GFR 59 ml/min/1.73m2 (>59) L [facility] GFR ( AMER) >60 ml/min/1.73m2 (>59) [facility] GFR INTERPRETATION [facility] --NORMAL KIDNEY FUNCTION OR MILD DISEASE - GFR >OR= 60CHRONIC KIDNEY DISEASE - GFR 15 - 59RENAL FAILURE - GFR <15 Est. GFR calculation based on the MDRDstudy equation, which assumes a steadystate for creatinine. Est. GFR should notbe used for medication dosing. ID Date Data Source [id number] 09/14/2019 07:47:29 AM EST [facility] Name Value Range Interpretation Code Description Data Lucille rce(s) Supporting Document(s) WBC 5.6 10*3/uL (4.1-11.0) [facility] RBC 4.24 10*6/uL (4.60-6.10) L [facility] HGB 12.2 g/dL (13.5-18.0) L [facility] HCT 36.8 % (41.0-53.0) L [facility] MCV 86.7 fL (80.0-95.0) [facility] MCH 28.7 pg (27.0-32.0) [facility] MCHC 33.1 g/dL (32.0-36.0) [facility] RDW 14.3 % (10.5-14.5) [facility] PLT 175 10*3/uL (150-450) [facility] MPV 7.5 fL (7.1-10.7) [facility] NEUT % 45.9 % (35.0-75.0) [facility] LYMPH % 38.2 % (16.0-52.0) [facility] MONO % 14.3 % (0.0-8.0) H [facility] EOS % 1.0 % (0.0-5.0) [facility] BASO % 0.6 % (0.0-4.0) [facility] NEUT # 2.6 10*3/uL (1.8-7.7) [facility] LYMPH # 2.1 10*3/uL (1.2-4.8) [facility] MONO # 0.8 10*3/uL (0.0-0.8) [facility] Eosinophils [#/volume] in Blood by Automated count 0.1 10*3/uL (0.0-0 .5) [facility] BASO # 0.0 10*3/uL (0.0-0.2) [facility] ID Date Data Source [id number] 09/13/2019 11:14:10 PM EST [facility] Name Value Range Interpretation Code Description Data Lucille rce(s) Supporting Document(s) SPECIMEN DESCRIPTION [facility] INFLUENZA A (NEG) [facility] INFLUENZA B (NEG) [facility] RSV (NEG) [facility] COMMENT [facility] ID Date Data Source [id number] 09/13/2019 09:32:57 PM EST [facility] Name Value Range Interpretation Code Description Data Lucille rce(s) Supporting Document(s) POC GLUCOSE 195 mg/dL (70-99) H [facility] NOTIFIED NURSEPERFORMED BY CLINICAL S TAFF ID Date Data Source [id number] 09/13/2019 04:56:03 PM EST [facility] Name Value Range Interpretation Code Description Data Lucille rce(s) Supporting Document(s) POC GLUCOSE 138 mg/dL (70-99) H [facility] NOTIFIED NURSEPERFORMED BY CLINICAL S TAFF ID Date Data Source [id number] 09/19/2019 04:27:19 PM EST [facility] Name Value Range Interpretation Code Description Data Lucille rce(s) Supporting Document(s) HGA AB IGG [facility] <1:80Reference range: <1:80 INTERPRETIVE INFORMATION: A. phagocytophilum (HGA) Antibody, IgG Less than 1:80 - No significant level of IgG antibodies to A. phagocytophilum detected. Greater than or equal to 1:80 - Suggestive of a recent or past infection with A. phagocytophilum. Test developed and characteristics determined by [employer]. See Compliance Statement B: [employer]/CS HGA AB IGM [facility] < 1:16Reference range: < 1:16 INTERPRETI VE INFORMATION: A. phagocytophilum (HGA) Antibody, IgM Less than 1:16 - No significant level of IgM antibodies to A. phagocytophilum detected. Greater than or equal to 1:16 - Suggestive of a current or recent infection with A. phagocytophilum. Test developed and characteristics determined by [employer]. See Compliance Statement B: [employer]CS Performed by [employer], [address] [place] [phone] www.[email or web address], Christ Kim MD, Lab. Director ID Date Data Source [id number] 09/16/2019 12:29:36 AM EST [facility] Name Value Range Interpretation Code Description Data [facility](s) Supporting Document(s) R RICKETTSII AB IGG Lab [facility] <1:64Reference range: <1:64 INTERPRETIVE INFORMATION: Rickettsia [facility]ickettsii [facility] Fever) Ab, IgG Less than 1:64 ....... Negative - No significant level of IgG antibody detected. 1:64 - 1:128 ......... Low Positive - Presence of IgG Antibody detected, suggestive of current or past infection. 1:256 or greater ..... Positive - Presence of IgG antibody detected, suggestive of current or past infection. Antibody reactivity to Rickettsia rickettsii antigen should be considered Spotted Fever group reactive. Other organisms within the group include R. akari, R. conorrii, R. australis and R. sibirica. Seroconversion, a fourfold or greater rise in antibody titer, between acute and convalescent sera is considered strong evidence of recent infection. Acute- phase specimens are collected during the first week of illness and convalescent-phase samples are generally obtained 2-4 weeks after resolution of illness. Ideally these samples should be tested simultaneously at the same facility. If the sample submitted was collected during the acute-phase of illness, submit a marked convalescent sample within 25 days for paired testing. R RICKETTSII AB IGM [facility] <1:64Reference range: <1:64 INTERPRETIVE INFORMATION: Rickettsia rickettsii ([facility] Spotted Fever) Ab, IgM Less than 1:64 ....... Negative - No significant level of IgM antibody detected. 1:64 or greater ...... Positive - Presence of IgM antibody detected, which may indicate a current or recent infection; however, low levels of IgM antibodies may occasionally persist for more than 12 months post-infection. Antibody reactivity to Rickettsia rickettsii antigen should be considered Spotted Fever group reactive. Other organisms within the group include R. akari, R. conorrii, R. australis and R. sibirica. Seroconversion, a fourfold or greater rise in antibody titer, between acute and convalescent sera is considered strong evidence of recent infection. Acute-phase specimens are co llected during the first week of illness and convalescent-phase samples are generally obtained 2-4 weeks after resolution of illness. Ideally these samples should be tested simultaneously at the same facility. If the sample submitted was collected during the acute-phase of illness, submit a marked convalescent sample within 25 days for paired testing. The CDC does not use IgM results for routine diagnostic testing of [place] Spotted Fever, as the response may not be specific for the agent (resulting in false positives) and the IgM response may be persistent from past infection. Performed by [employer], [address] [place] [id number] www.[email or web address], Christ Kim MD, Lab. Director ID Date Data Source [id number] 09/13/2019 05:30:25 PM EST [facility] SPECIMEN DESCRIPTION BLOODSPECIAL REQUESTS NONERESULT NO BLOOD-BORNE PARASITES SEEN. NOTE: A SINGLE SPECIMEN WILL NOT DEFINITIVELY RU LE OUT BLOODBORNE PARASITES. ADDITIONAL SPECIMENS SHOULD BE SUBMITTED IF CLIN ICALLY INDICATED.REPORT STATUS FINAL 09/13/2019 Name Value Range Interpretation Code Description Data Lucille rce(s) Supporting Document(s) ID Date Data Source [id number] 09/13/2019 01:47:31 PM EST [facility] Name Value Range Interpretation Code Description Data Lucille rce(s) Supporting Document(s) BLOOD PARASITE SCRN [facility] ID Date Data Source [id number] 09/13/2019 12:39:45 PM EST [facility] Name Value Range Interpretation Code Description Data Lucille rce(s) Supporting Document(s) POC GLUCOSE 145 mg/dL (70-99) H [facility] PERFORMED BY CLINICAL STAFF ID Date Data Source [id number] 09/13/2019 10:30:00 AM EST [facility] DATE OF EXAM: 09/13/2019CT CHEST WITHOUT CONTRAST CLINICAL HISTORY: FEVER COMPARISON: Chest x-ray dated 09/11/2019 TECHNIQUE: Axial CT images were obtained of the chest without. Additional coronal and sagittal reformatted images were obtained. One or more of the following dose reduction techniques were utilized in effectively lowering the radiation dose for this examination: Automated Exposure Control, Adjustment of the mA and/or kV according to patient size, or Iterative reconstruction. FINDINGS: Lines and devices: None. Thyroid: There is a 3.8 x 2.9 cm hypodense right thyroid nodule. Lungs: A 4 mm nodule is visualized in the right middle lobe on image 65 of series 2. There is a 4 mm nodule in the right lower lobe on image 78. No focal areas of consolidation are seen. Large airways: Unremarkable. Mediastinum and kahlil: No lymphadenopathy. Pleura: Unremarkable. Vessels: Evaluation of the vessels is limited without contrast. There are a few scattered atherosclerotic calcificat ions. Heart: Coronary artery calcifications are seen. Chest wall/tissues: Unremarkable. Bones: Mild multilevel degenerative changes. Upper abdomen: Limited evaluation without contrast. Hepatic steatosis. IMPRESSION: 1. Right-sided pulmonary nodules measuring up to 4 mm. One-year follow-up chest CT is recommended.2. There is a 3.8 x 2.9 cm hypodense right thyroid nodule. Correlation with thyroid ultrasound is recommended. Professional interpretation performed at [facility] .End of diagnostic report for accession: [id number] Interpreted: Crystal Beltranscribed: 09/13/2019 10:19 AMSigned: 09/13/2019 10:30 AM Crystal Beltran DO [facility] # [id number] [facility] # [id number] Name Value Range Interpretation Code Description Data Lucille rce(s) Supporting Document(s) ID Date Data Source [id number] 09/13/2019 09:19:37 AM EST [facility] Name Value Range Interpretation Code Description Data Lucille rce(s) Supporting Document(s) POC GLUCOSE 129 mg/dL (70-99) H [facility] PERFORMED BY CLINICAL STAFF ID Date Data Source [id number] 09/13/2019 08:13:59 AM EST [facility] Name Value Range Interpretation Code Description Data Lucille rce(s) Supporting Document(s) POC GLUCOSE 131 mg/dL (70-99) H [facility] NOTIFIED NURSEPERFORMED BY CLINICAL S TAFF ID Date Data Source [id number] 09/19/2019 04:38:12 PM EST [facility] Name Value Range Interpretation Code Description Data Lucille rce(s) Supporting Document(s) LYME IGM/IGG AB @ (NEG) A [facility] SPECIMENS TESTING POSITIVE OR EQUIVOCAL FORLYME IGG/IGM MAY BE DUE TO LYME DISEASEOR A VARIETY OF OTHER CLINICAL CONDITIONS.THEREFORE, THESE SPECIMENS ARE REFERRED TOA REFERENCE LABORATORY FOR WESTERNIMMUNOBLOT TESTING. PLEASE REFER TO THE REFERENCE LABORATORY SECTION OF THE REPORTFOR THESE RESULTS.FAXED RESULTS TO [facility] ON 09/19/2019 AT [id number] [place] [id number] ID Date Data Source [id number] 09/17/2019 12:29:21 AM EST [facility] Name Value Range Interpretation Code Description Data Lucille rce(s) Supporting Document(s) SOURCE [facility] LYME PCR [facility] Not Detected NOT DETECTED - A negative r esult does not rule out the presence of PCR inhibitors in the patient specimen or assay specific nucleic acid in concentrations below the level of detection by the assay. The [facility] [place] considers blood and urine samples to be suboptimal for the detection for Borrelia by PCR. Positive results do not necessarily represent active disease. INTERPRETIVE INFORMATION: Borrelia Species DNA Detection by PCR Test developed and characteristics determined by [employer]. See Compliance Statement B: [employer]/ Performed by [employer], [address] [facility], [place] [address] www.[email or web address], Christ Kim MD, Lab. Director ID Date Data Source [id number] 09/15/2019 04:45:00 PM EST [facility] Name Value Range Interpretation Code Description Data Lucille rce(s) Supporting Document(s) LYME IGG B [facility] NegativeReference range: Negative Band(s ) present: NONE (Insufficient number of bands for positive result) INTERPRETIVE INFORMATION: B. burgdorferi IgG Immunoblot For this assay, a positive result is reported when any 5 or more of the following 10 bands are present: 18, 23, 28, 30, 39, 41, 45, 58, 66, or 93 kDa. All other banding patterns are reported as negative. LYME IGM B [facility] NegativeReference range: Negative Band(s ) present: 41 kDa (Insufficient number of bands for positive result) INTERPRETIVE INFORMATION: B. burgdorferi Antibody IgM Immunoblot For this assay, a positive result is reported when any 2 or more of the following bands are present: 23, 39, or 41 kDa. All other banding patterns are reported as negative. Performed by [employer], [address] [address] [facility], [place] [address] www.[email or web address], Christ Kim MD, Lab. Director ID Date Data Source [id number] 09/13/2019 07:26:42 AM EST [facility] Name Value Range Interpretation Code Description Data Lucille rce(s) Supporting Document(s) MUSE EKG PDF encoded [facility] GHYOSi1jUpZZDoUph3DkPlOkWNYxBQ1iika7A7F7pARxM6FmzRSyt1lgH4TuJ0OzMXXtPHUIEN3LwQZt jb2 [file] c/ayRP0B//P//uf/+H/kP//nf/7n//jd edwards//0//3WIo+f/93+dPS6n/L/+62xxueWL/mZmfgwqsGX4yuAa DFyBK/DCeYR86Xbta5unv/xTjX/lxuNBGXgCT+PQoUOl8Zdgobi22/HUhf9yf0Y/0yqnuE60h/O/Hnt7 A89zp7ykK++UDbgBd+AO/Tm38ki9jf1H302gCgjIp+ R34sh1GBKwwRW644hx0t6h15skltdTBe/crj/KuThGGkkt83ventk7sMluMc2RB/H5xSjecBIZ/T0mtz 3YMcjXY8FGkXKpmTCcoI7HiIQ4AzBx0ANKf2DLWI/DCep12tm+TadAOoWa57Kxt15SuM21Qqa0G7z/df RfR/919F9H//A275ORXR45CggrQV9RXvDfstYyN0Nn zS7WxFV6K/YF7E0AM3R4ZE/S5zG8JJfF67SjfFmCB8LzNr9QBhL7oov5W/Cl3U9Ts4D0TR/R9tV1FXlA 5goqSfqbrYkkx7CtnQ1Usdq3Grsp4Cuqb2Sb2O6/qo8iG1o2PGvnKt13ZRwBQ/+fcDQl5T4tE+Nz1R3n 69i7p+z/+eu3Z8z/CbS/nvY0b7yq8tRezpdmz/aQ/v E23V4dUT6/3Ce8e55ZufYeGxywhd+yH7yP/EArzkEd1l/SufNM02lB7k/hnK6hIFt7/VX6Vio69kH6qP R/0k5ww79qGyuN/527TjM7n2Jz4pw0askuZQqA3oyhqWKx+163loL10FORT9fTTc++5vN4sh2Aa7vTiD j/2VXU75T9nOsdHuaJ5z42xihWGd74E+PA54QQU820 1T7l2ebpr8a898wzIibdzUrl5Ef83+z4G471yVom/VItrsw558pO6BImhKrwzPH2IQ/gCbyAF/Bjr8yu oR/+vBuA/mPVz/ypt2fE8qZYxyqK/PB+RkdfZT+Xo6+y/X/1EjaVo4m66qlpX3vh8/2/Z8tcVk5pwKPx LhpkrT3fN24UmlQemh/+146xs6CUD4ae/p2/9rzmvr /6pTNEF5k2hz/6yv+++rrst/jtb13B8wz/4dbt+aevfHXb++mrE5/7vmb9n2l117mtrfC3Pir9U+grbX 9VV92DR3NZ9h60GJ89+zlBhZC3gDcM86K369L1+erv4gDX4I8v4zUHVR+3fba+br8Z1pDbfjaqsNU+gC /xLrcTM5ICUrZVoBVM3BT2wI/g9/tIW1+8VtZj43Ff f85NA939Es+6YoDH4QI1wCoF1cd5ursTESCV8LS+ge+LB+gNjNflg27xu4s95jatytMqgGdaR45VVsvW D+EWQJQm5EGr+P0bv//kQA89RN5+43YKcAF+3Wta1UnaU01gEyS54rhij/n80ffn2r+ze7xqa607nqOv 3As4cUi8qhZJ30Ov93O0atigyMEZz3Bjw9rrv08so6 tfvWXgC/xGhmdmEuvITa5sqqSAwac0IOcVoK6G3/q8bk7phgpW+EoaHtQ3h1fztgjdf41epvqs1kQTX4 h6bdmv2oh3Tf/vogLUQjn9ppaL2gbYc5+nh4Dmc3Ogi9fykF78ebxLchr4xX/9z9t8FciMhc6qsALi/N FXElP+6i30mu7Nnz3fv/oSap8iB0k3hCmyqpTE/JWr y3+4Po3/7NWn8Z+9Ko3/7FVp/Fvroyntyzg3gvNQwwi0lU/V4wg5K48yBe5I+T5ujdixSMm8Ak/Zq97/ e96/bxl/v/F88392/fTV+xvk2Nu/TeT+tvXyz7Ui9toWRcD+U77+QTy1hVTA/E2Otftk+yyNa5Rt3m1+ Zw/FtIGzhWLaxtlBcWZhf+UtcWCPf72+2ydGJ5/dE9 M+z+wXth9o86Q016U6CksJ8JznmvkghMx+lxHCRX727rghK03wY7CDj7aG3Dexy2D73zQFH5+OX7V/Jn 7V+NVXC/GrNfErO+V6UAa+gd/gyo70Ca31t4mU7bn4UAdQ6/0mEw91r2UZmNH4ia6/66t+1h2/Ov10IX 68XD5fdU+tiV/139/r29Nq21Rx9/t32f3+XfYAF+AC FKLf38QfbqR/gG43anS+6t/f+ovewa6C/iv6WqyMuHX2ClqgJVgzo/M1PN/VS25uggIGyKnjHv7BJwiG btVqaIAAaw49Gtu8O57lplurLgfYG/HTPB48rqx1UtyU8ZgyK1LokG2LtME8Q/IPer9gepIA4kd56WkA tiKQlTFa8Ui7syelr2oCWXLFgR9vv/XVlBfwBRztGf genm7qOaM857KWO46yBayQe27AhAg4L/qQvK0Nnu/cJuBGS8aqNAhfOSbnsQ5B66r0fwEgF9g+heeL+N UqPN+CvQV7C/Fp9XwCsbgk18D50alRO/Xi4Cpz21m1X/Bv5Oys00i7E/Nf7NpctEas258v9cY20QH//G bVxTLxPjceev7ND+AKfAG/2l7MZikA4RK88Syl8TDC K+z45IllKlgldgH88knX4ylp+I6Mca2R346/LqWYH5w2CWRYodjS0PNsV7Mw19PGBBC64QIo0tnaKJQ7 g7dHFWb5qNPHKL80M6hCOheSWtpo4HicHTIPB6m1Hb3kPEjEI+Ab19n3+k4v7rNiK9//Nc7wGZd1YJX2 z/tIE1xLJukfctjhM+w9bfK96wrc9chP/mTEW406Fx 3jlbW+4p7sxSr8lwLO47pRwr5092Q74ahbbIljiHGrL7AspAVoL96x6Xc3Qn1ywx5EhE/wzfEFGr36aQ gfQQ0HNc7W0b/2Po2f+SC9htv9USlSaZAYMELLi6p/k3OqJcI8urXKAGYqCBgNB6jS/sYhzzaCW/7h/S xIdpjyN8ur8gaaNPzH/s7FnUcAn7qXqYzmi8/gbW92 vhey/+Z8H3W7/ekrt/y2T1n07fIMJ6jUqblnvP1iwmYVQqUe/pzr/HMF60Whb831QVsFC04BpA5+vnfO loG37/j9XjC/8ynW+qr9f/RVxyHPbgGr+fbv109w0yJh2Thwy0GoszpE7StslC47wn0U+saj5zDb3lEe T3Ydv527YptnyGFEzNB22qErHQvfegibN+7AHXgAD+ CJ+4E9d289HjOrZZtboUKGIwSpuCGvvf1JZ5FjjVts4M/IP9G04L72wYXdjYRVgkQpqGz0Wm8ff4H0xc GgLvnbSs69s6116BbA3/uw1X1ZNfrdR+7AHXgAD+IUQSAwyr6b/H1/Z6vX95n7y9gU0oK7au/avt+D1v qq+2Zwtd86CfNXyozWoiB98F2bxQackY/2/R60fb+P rPVV9/j962Cg3OW535YQc+sxd66rfVv6cht47MK6os2L0/kEIb1lNOKdA4HYw75Xc+yvhjlL+At1xVmm f+KCLhKecBGp3q/9yqngCqnerHFhZKGF0D3L8QWQOm8022plf1jvnCl9alcH7TnDlxFBeQPS4CAppOt8 NHFI7/oT8Oul2Kyn9ihG3P3j+LM6nB18k68ita/47x 2/Os/XH267zqR7/KqfUcev+tkjtfUaiBKsg4ZNU2U+wUiDHd7NsO6g+gKvBit9A7C3EvliZpA1aFWPZe 9aaG897ChY/8y5RbtW6E9q3LfDm5hrEJ//F729kVxdYrLQCl5/d+M6+17/zA/Ofc/84FuW+zvP/OD8/q XXD+eBD49xH5pGP08feQqsU5aiV28yazmeOj+c1fjv 811xn/iQ8c7JoL+sqxwkc8z3zrKcvladt0p8xcg68vRB8ysX/qnI0fIibeN5oj/Y/V44C/DffmR6+5et B+NrTs727+78wll6//Z98zs+dPyq/wWwonzu8YitXByu5ykis+o23/Boc6akl/FJ97u+zv2ur/OOX83f KP5egS/gC7gBN+AO3HHf+46icldn6/t1298ES7zV98 Ka773A/w59zUZAxAVeeUX1Ae4uF612rJeCy/FYj/f30CPvc520dgbHAZQ0289ocozlxA0Q82v2jg3mnd jF7BwSkvdodOEIC/C0I8880TuQiqxhxqFJ2YhjM4GyKeD50pggMevuoyniN+rg1Rwgd1Ljgh2BeKZId6 bx6jBrRgdIx21IPAnAX2nrVIzojt+3abhSKf1eeX0b 8SvfN/7sG/13o/8ifuWIX/iW2Hh00iOHu81zj5fJE3N79g0FWjd8Y+FK1yjtutl3/mBtvlSQdUqv20/j xe28OaX+gC/tUucGB48/93wLi2aLUmmwvtsWQ46/11/FD7Q30QsbH1brdvGR+D1LLSR3n4ksPjdJ6Cc/ f/VzyH2+Buy2fndyF65HmoZAhPEcwRH8RD/gG/htz6 S8cL559nnRO33Ovfu4O9//oSej4yyaCzy17/sL10nf4ppnDz9t7yp8ubO15D9sH41cIwWo/iqOvmqdEE jfwTdQf52iE4lwxWG439Gb0MhbNV1WIGy0+ih3x7psx+Lbk22WfTGzeB653lF/9/Ln/nt2tzMVylowo/ GZZ47HA9DD25cdci9bz9M+7xx5z95r6r2+PaexK4E6 /Vhnul3Aep1xhsUtrVcn4/h0Ol4Xh/IeksJ43fcu67y/0Vkomc81TxmuPj0Ij+um/MOf/pjYgl4a1Q74 itfJ2nxNc7eANo2Ca2ZbioEqhc09t5G43HabcKewi17aQ2cst0xiF+BS3eSvhjSJC3QhBpt+5u0q49u2 LI6+8vTUqiZT4wZ/fEq80VfZS2hVT79xSX1+6jhkHH 3V6/Hg0VH7AJ85CnRjVwwsmkl1vtG1Oynrvql1AEr//7Vns8Z/6vflXu61ElGW+OmrD/+8G9yo5AyEkC WncikykWje9nk6OAE/ByPqW+cQsW9/v56QwChR7dasuo4WmdA/1VvsI34dutz5DZjotZU0+pcvgmQ04W zTo6+qfxOMM0jrlnVvZk5RvbD1yHR63zs4nbOA+Psb b4+08GzUI8+LjwPwtAh82S3WkX8T6icO+FVM/TdPuE27JDp7Q2/ugaAZiv1b1jls9iuRr24xaxQm6Ai8 Q+i5blL8D3hI5/I21vshHDJtoR+7Cowm1Cu4tSkmp58786Fw50iVzW01/6ngvnEP9i9fj/D3G/hdT5jP Xe+jvrOvqUshWl2AZ/D1+NGjg07mU161t6++yufG6/ KH4GI1pPoai/IARn0l2TYTXqD2RRFkdQxzX79cFQ6wml1AWh88OnyAnoWy64I8jxmM8/MH6nnnDDS/3/ vI68VF0/Imfck4uXuqR43OOF452Me9/KPRp4KvZ9+3bE0aOE5T66JWN+A3ppS1ncBSE29E/18WJ6b27J s+7X1bXkRreSn5mL4js1wk4EK4+q7AqSKnbb9OZa6T G9QpayAlaKj3rnMUvbMKg0pl3Izx78VGY4TVWW++9kqOVu2Gu+Kq0MvNL1hrp6/K5ZrlFgLC6eXnnxFO X3W8K4++3adOmKF21jUigJwXNl4DaRsQ2bjc+c+XUuUqLuv69gFA8a0fGOyAR1I4/4g0x71MlyQ054FD n2geXARUqT3BqTs3PqBV8/j+J30OHCgRLzA8uXl9TO OUD3iDSe87i7/41buGfkI/oTfoDfdf/f/P/mB83p8atkU/MNt+7hpIBjBeuYc8gff++4Nl/7M/JS299j czj3Eb+vfsD1a/n/3BGg+2I3ef6ZuFMiajm/3BjBlua/95W+/uqnzsqvs8d2twKr3u3wq3yreh4eo6Jn m/36tr0F7gbu/XrV+Yv6vPW+0lz9/eq/Of9+s26696 n3Cvfj/aa0A/oZ/FB18pYE0U7iyBn/bq/A98nc4my58808kwA+o654eczb/Y+4NeoBfoFXqFfkA/oJ/Q T+gNeoN+Qb+c03I7IKxijulg7wIU1P3SfR0bIow/2IRwJ0en7OV216FaD9pSsQ9r2T5vzv3DI7yn3/H8 hspJeojnbetaqioGVkndT292uQ+144NeoBfoFXqFfk A/oJ/QT+eJJgpTxbqB5wQ8X+1F/tVG/SukjuJOx9xYEcltM021tPI+5ci/axNlTjWiFWvNlgpPQ43qgQ 85/CtH/Mq/Pt/t34K+41f+tf/aI1164q/fF/wL6Nt/dmn/5kSPXdLV9HL7bK5D6/5pi298t0P26I36jh b3hW3f051m2x514yryI52EE35QS98KD8KN8Z8VxvHt [file] wnFh/LFYSIEFEiSmQQGUQmkUnEiBgRjgNbRDYRjgPj ODCOA+K8IHdenEpgjlXSziZ8LlfWzbJ6GHdYc+QkrZlkzkIPikB2EzwGvwKuLSIAoc1I4oA9yYhQwh6S 6aG9uMtKTYVKMQtoKLIQBUKZbHXktqikOzrJTHDPPIdVBhGOiJ7vdbNGL7wqriQhpmPl26uTcNHkfind r74UJlpowRAh9bAIk0RKWtCocekwOKAeL527wYqgUN 0MyqtAkGNhdotCZmjgpRv0RaJXSIfyVz7m7bWbcGIT/LMUUOp12WJIX33wooY8ET0KxB0UNlwuEWwDtV kSaMUv96Ve+uK+8/qEiBJRIoMIbLC+yd+MDWeCXIfDQm85ywWKu/P/+tf/+Pc/eZZl/D27//2///lv// Vf//z3f/79f/75n//+1wF+Xuo///xr49gIlf2Nv24N l75u/c+5+yvGnn6NW8JKtccS80Um8Gd6uM6VZ1Bg4Pg2Es1WywO/od/QO/NWaKVrnceiouP27T8Q586g U3/ae6+cN7CS6Facu/Ev6xdkr567e49oR79iyxR71GU/iv5V9O/0NzkAL7BB1Mg1Vd/4eh3088P/DrR3 eC1T9J5i30A+Dypgin1g8E+B/h3o34H+nRjPE+2daO 0PjmfaL6IlIxYn6J/cH+7cnP3HnnklP0YuhKTm9N9U/35194N/HsIlyU3F0ME560ObW9mZ3OE181Fgk9 XB0U44vo8f7wEpQ/8a+tfQv4b+VvItsB1S9b/C/Y5AtajVf0I8qyV2SizxMglxHa9apBvurProJQu6zP +F+lnLslg5x8G/C/440K9x44mahQej0ZbtZsk23dlz ipf7h2K/F4j08k4E9t07w5I6D+3fqG9Sfbjsj5HwscR4qjGvONeUr0M9J9eqQrf9jsDuuL99VphxtP+j aC45qun01FBaaz7z4l4Dx/d+Biwch7g+gTvogOw61aaoKHlZZjN/5L8qsdPfX3B/5dxGf8a1q9D86P24 Eh4WidS/oT/lxcau6881Pqfv8e6dwj51Nr9/9CuP+5 /76geoDGoFeop4t4pcJg5on6SJgBc+pnyCG6bCOiSO85CJ9c85Z7M0qB2S/OKNeW2/69T7h+ij0wGlz/ a+69Yf/+pdH/731qWm8aT4h/bODHMd/2xN7xvk8OuOT6cjK+gcBi8tgzRx1X/oN/QbeofeoQ/87mnvyv cx557z497+3BMy//u24CV0Gh+yH49/NbJfjn+ladvj I0ywtH9y+3Og/tEDQZmvNs1s89IJ1473YM30/Ep2i122r89z8z//oVPm0cEt+QtLK3Q52326H5p6F/+b 6Q17Eqw//PlS+Zm/9a7KDdncu1w3h80/NUbp/8c6qpty//ALRFQ76QL029eoW5ulUnofw76jff/n51/9 /VZ+7h3eBqYgb69j1Y1/rxg4u51e6Tr+1a7/8Gvvyo hn+ldp8/Owbj8m2+ivfsJD9CM8Ov9/VX19/Kvq6+FbDp21oOVuzGrwGK1w0QW8R//k9u4nWcs/6l1Dv6 Bf0G/oN/SO++c4dpg4t2zvx882Q4y/vqJ7pS2hx/n0UC0aaaJ4bA/D/XGUF7A2Upjrr/w1zF/D/DW019 GoG7dH9+XbyaHwiMl9eFM4Gf5VNc67DjGKuTP/oF/Q b+i73Uhd3v7oW+hukbg4iS6iX4pPXwVN1LF9Dw1i46Lod+o5pdxof52Ed4+d3W49i9+hu/6TFm4cs0v/ 4qFy5niV/kFC6zDr2myC/pR8lo1fY+br49J1e+p6QD+rJ7LlU95m8Y68B7u+CQ27q7XjU+AzNd3j9TIW v8q1K/2jshjN6vmh05/aqT/tzbU3/atcb9O/itSf9u OA6QHeEo2qsy+1cp0//tWS1P/lucX74hjjPv5qhx40bi+18nl3/Ktae49/wIT9Tx9MfbS5+Fcrn1/Hv/ hG9wW31+/vpmedr6b1AEf+Cy8RlnG//vi4yyd2H/F1HXv/0kde/9u4vP/Nr7/5S/2vvltT/2rvP+D nHK/4G+Maky98PL8/z5TyK/q5Tb++5eU5W/F2n/jyP 7jX0G/oN/Xn+Rr9j7968uqV0EsMFlC/+VX3++Fd1n+Nf1X87/lX9/+IcLauF3S4+Vdnh+Fdlq+Nfrahr e7Y9/lXa/5azcE36drxlF13XzjIk/a736/dzgqLGwzlAUWPmnJ+xNMbOY4YRVNc/XbV8WHrR18ibfU2H v9qpb/78MZwekGPdk0WAbh/SVtr+23SajjEpH8aXAw +053Hx8HuuStj4n4Ufq5Ej8xuZAVr+oI/Go07fS5Qrw2gL2AL7ckxboHwJJof00WbyUQcpPYOT80Wq2R z1xe9Wm6Us0Py7Gi2VO91K/yrHW/xYjY6XZ/QKvUI/oB/QT+ls2Hz3Wr+fC3Rs7Oo7Nn1TL1MX2l0yCl BN2N7Kx7H/XpkylbKAadiPKi0Wm0aqun40d+hfQ/8a +tfQv4b+BaLH7n6m0n2AsVE7soz/M6gQqzGmgIbpHvmN/YB+Qj+hN+gN+tI4kd0Lo6G16RQu+FcD/tWA unBqJi85DeD+1YB/NeBfDfhXI/0chG3di4XqpSlrQioBIzl88h2Q2y88z2T1N+3daK+nfI61XgyhyL+j px34Y73909Y5bQj8t0rqz1R53D27Ob9XntN/oXfoHf qAPlof/P60kam1e2XbaXqwAzhTPdpuzV+gfPT1KghvtK+loJU0TeyxuS+rmKB9Yii7RM7hb+gFeoFeoV foB/QD+bh2oH7mQ+aT9Xz4yj+aX7//wyqp1av2BrbU8/P8+lk4ayMuT/yAn3Y158uI/hJz678rd9x/qK lamination spinner/rR6do7GZ4O76U15PA87M/lbG7+4nNk32y/fMnN/ 8X77IajbG/BLZvBL6CSug/0Koa7R1gG2r6Oi4l+syrlPchie0mtodEgL7v0Dooj+4bdwQXVRv8mcNPA+ 16d/8nZ7QS87bmmkds/50e4qocb71sDgE464sedPC+jO8RL6263A3kxxuzvGI+yL4Nm2Tm2Ul0i313zA r82jPxJ/Nf8c7pCRRkhlxLJ0vwY657/6auel540n1r /7ChtcUOsKOhFfi15mc9s5FPONwb942JrTojGE4ipAp/+JT+82WeS37vyO773WN9Z6wjb89NrAi//519 9T2yBpo/6bmaL2d/LSesavEy0V//npQ9KG7mbe+CEvq12sgNdr4W4/3gXOoYG/fqj6frgkZLbJ/l5o8j 6/+OSX4/D4V1H3+bXXcywd/ieps96orbsS3E+sz69e S3rmm8NtZ/l573GY/lX9n9O/ycb1p2Ox/lX+NojQrG0OJh1itR/0r+kn2fc0m2yI+ma086O/wtuK8nJe 0C/oMX/Bq9qqo15wu/xN/bsfpepxFbxk65j8Nj3jl0x+2c3XdcLA8qK/da+hN+gN+cE1ah7Lj/VqY73a LO236hgtBnhYk/Ie1kuaF6tp2MH8H/7oeU69lyvJbq XhX03v+OR0rM++oF/Q4/mcQ0sK4fGPcp12+5Mz2p+x7TJp1Mf0Fi6/C79a02POU/oJ/YTeoO/9ufz1mp RjQd/1mlO8Glta93Wp+n1/RscnZ+4PnmvL/cF7/G708qU14p2DhiDJ9aY08v8RhmejQydJF+pzPzSvDf tbS8NjY5IDu2jjgZMSPGAj5Hx7lt1GH1oG6Pb1Pu2o P8iuOSx+fkOsUYSWO68j/EcEqEG6oz+x1K6GB65k5jupaYN7zm+rgNdPvWIKDy1uyDtclcmt94im3aQM y/cLdhx9uLdA+DTRd3unhbLMDhDQrxgIrfrm1AEnU2bo0RjFwO8x6vw97uxmIjRnpOtO15063KrUhprc ydKv+N5J0q/45MnRrxjgSdHva+qC3Ky0Fo7E3fS09J P6E5/M/3D8q/pvx7+q/7d1v9nEXMaLv9Y9Oo0P7rL4K8Pf93+V/Y9/Vf1y/Kvqr+NfVZ8e/6r6+vhXNR 5yfzDHyfGvaizl/wQXwkfmjJJ5IQ7m/xoHwiKt5IZzI+VcyPyrnC+On0MpHxKs9iFV17qn/s5+X7DZ+X U2O7/OkH9ls/T1oSO2BUoo9rd0wvH+oGF/0KZD7/h8 5D8ybtZJziyvQ3X0bdL/MlPoFfoBfcdzzDqeYzahN+gN+oJ69lxst/XzyLA/aLU/eOa+9f6+Wb//2ur3 E7jl6VT4NL/QK/QD+lR6kF2I807wOv9PAiSlHKJpI/xCQU5hvN8U6StB/QxVtgVZterwU7P1acfbo6ar /OZmeJ8am7R/oJ/QT+bG5f5UC+jV1Kd95O017U99mD 57p136/5v9o99yV+dJTvv8Fh3qY3rf2XF5H/6Vwb8y+FcG/7hwPqm1L7J/QlJyiWZjP2dA3C93K6UeRJ fK9X40P9HnQLdQ7N11D9GjGKwTk2Rz346u+FVdQ+/QY/4G5m90/sZC/Qv31d83kNnSP3Ve0Fz1gB2a3/ o6H2l9/X60vn4/Zv1Kz7Wz1V/oN/VQnDPv3GP6bG40 f7FK3TU3pE4rA8WertVq3EU+1UL+1UL+1UL+1UL+1UL+1UL+1UL+1UL+6OWTidneiDjd6i+lTTL/6l5D j2Nh1Laisq6D0ciK06Raa8/az6Ol/atktI1r7giVYowtc0FssDk8G+x1jQ51uqA9x9FBecxz6nZ0IZC0 oO6mC9ZV7Tj0S6tW9vRb8U/oN/XnzoF5aB9iXa49Ak /q+Kwa2wqg+vkPa/bzaM1+Hq2J+Javkuft3rfKA+hLk3Lpr3iN/xoOowF4hRm/s9/31+z3/TUxfyfm7+ u7lgRNa0o0z9t/hvlrmL+G+WsYz+bd2r59fpZHu9TRP0zz5qx3764nNa8h3/vM6j5zgruHg0Aek0U0X8 70AU4Z775/2pZ3sC6/6l3/9Pkfjn+l2Y/Dm1h7ykG7 t1gNljsf7qu0/ryOf5V+/jr+1V75+R32LrnAb94o64zTJA//akj+/59/VbG+9iFrurqgZEcpS52b2v3e 6+v902t+Zv/qlD9b2n/mLq6ff/U39/XfM61z6H/1c2x2MN/Ksy+Zy7T3Yqs6Y/kuszK/faW+9/fXbn9y 7C4LufFs8a+ko4Zlz6e2K2T4+qu9SL8r+jmGm4vR8e Dean/2ayb80C1/xyZX+Vf3/jl8t7/uG2UqvWmgjS052yF+O9Rnxq+KBdn0cs/IJ0io0XE9ye4/H/PWO1y 3H/ISCZ6euP4h8Lplzb+NJFbPLhunwJ40kj64o5Y9U1X/oJ/SG+xh+d+F3F/Wol1W3waXI7tlsj2W162 hc2a7MxEFy2Yh0Ud8Nqbo5d5/atT+I7an9Gb+gX9Bv 1Dp7Li0A5/7G/tp/3tL+80Z++0Z++4hOL51d+YLNpk0mf0c5nMOF5+ze9g1bHz9+v3N/8Et95/Nv6f2F vv2CAzcPuoa9OT3JE4vMR4cPY6lZY6pJC6yIM1ci5U3s+8Gh1yicgTbWz4p0Q8xjF/2GSem51p/tvD7t PfHDnflXnvrTXk/9aW+k/fM4sJG89un/zO5tsYxJ7Q d7Few3IdpB3vn/vcjaAg4ACpE82c5ty44GID/j2d4E60984a4ac4XqyiBoCJ1Jt1m+yxkV2okrvxMCpI 9/kCVzpdojl88aD/E6yc+kkA82ug1lA/G6HA/Eq0vC5F3+Wfaw0hLnEgf0p8+VMb19/MoVv9dUt8v6k9 38q3cN/YB+QD+zo5Wo2r/43dPe+m+r///bs9bEi48u Gx7/QkCLn8p+wI9J71oda/LZuo9/iRMAtwdw0stcT4KkdO//vtdPwtr1C/9m05K0768f7VY+GR5Yc8pF 60Z1iw5i4eejs04G/pK3pbhkiL8xby6TyiuuV2v4s52nd+l51w750L/QlY43WXyeU/ntG/Vxrefl3Xj5 hm4Y5JprK5Aw3C5h6W6f2F5s2F/u1c+qkmHc1S/V+6 O449k1IlH8/uDG/uDG/uDG/qKcBe8Fm2WC9He3/fzdu5+/O/1wfw39lj6Qa3Ye6Jv0Fc0XF6750l/d/k Ez2Ey4Wk4VP4Jh5OM7bsH10am+Vdon/ag2Qp9BQl8n9U3E/xx512E/gf4N9G+gfwP+DuEkRQmmDG1uWn QT+gm9QW/QL+cL5KfB9C65/KsN/0uBn3tfcdr+lcO/ cvhXDv/K4V85/CuHf+AgyM4PW4T10V70Cr9SxuC/bAivJniQLl8IgMdYDhH1Qd3WrPmIEgQ4Kf0Jcw1j 3krNC1IwsQ/QL+s37Nz2d64sJ+j7fd+5215i1XsW/KgIk7WNimfwO5gJ/DNa8BS0Z5AdRSaQ6OD0Y/lX usbxsb8X0rqtr4gn6EuKt17m+Oj9FB/9PPLMv/LUd7 9rx08X2wE+syO/3Uefd/iJR97s53gSFzHEXA+egia3O9eZ6gJq/X0fvb/vs/m0QnoL24x22330vH4zK+ jYH/Q5oB/QT+tf6Gu5Sh+gX/g/HZ/02fnePnv/yHF+0Ge/H/ns+HQifoPdKHnFf2F1E+hf3tHJiA5Qbf 148qlomfbS81o9RbFX/RnPM7/g9V79Wc3E5tG72SI0 aH36V/fcvrPdsWfmL3sN/+diL192TA//6viffvyrEan/tXeceJGvzK/zvLabv+dYt9vcc035p6xK7+Nf 1XoF6ctiFfdnWjS9+u6J1+IsOn4Thl43/uv1a8zuZOmZu4bl9om+/DtIJkyvy1dLv8SRiy96Gpd8Gh/5 V2OM1P/rcAn48B//6m9u1/U7X+h3lUyGon7wT4+r/7 NfXM5//lWdX/affzW+zdokbaIy7ZVidE1/eT/K+xz/Kv1/z/OD+y4Ur2ChD+xLS7ttTIO/cvhXDv/K4V +4Qvrxd7Gvvypi9+dh3RJTp2j+qLvj/o7/0/6Ve/cBle1Rqgv1y3tB0KT19xvh0LmH/QwWw8XHmqhjSp +R8bPi3S/oN/GkuuY8NWnOagevK/oB9K9DB/T9vhDw rwL+VcC/FdpRGz3i5W1W/KuAfxXwrwL+VcC/GsfQZm3fmH4V1V7G1B4V4orC+4OB/Ramirez/mBIvw+G9H5K SO+nhAzoJ/QTeoO+9itFKb3lnDEBTrb7CBk/l7K9pBpCK6/2LDX4gasb78AS4Qh+yPjVvX7+BRbLp1hX W937QhOgOtc/FRm/utfQdz5/2Unl1Axp6QW+98vy89 v62qE//sbMz5/60vd5irNN/xJWt1htJseCwlkxnyYJ2d3V3s/u1J/11wHf6hieO7v99az9tocH7sGbe5 y/Os+UyPyrL/XrPRcC+Zaida+Zunilda+hPPGak/7MhgmoTiynOAT0f/omssuK2hzNVmQh8hpl+VMZ84/lXG4u Y1KdrZl6t1XfObU45EZz/KMZPxqxwbGb+S1J/4VY6B uB6hE0z0Kaa952hJe8Ap2aJfH3wts4//ocm6E4EZyCT/dqy5Mrg0ema9640NlaBdeGcaW/Ncdvrxc68C bTn+MrRz57sc7lj/KpvYarsd/6pse/yrsrl1/mRYn++G767nZMJJ/Ku9lziJU+Mlexj5lsi2X8Lt4o08 N7Zvz9hl/atd1z3+Q2afAyew0FwT+ldp/9Jh8aEjC3 OxOhwy3i0cLJ2hw8o/lTZc/b4Qq/d9P5O6s0x5/jdQ/tj82npm9oLr6/nQyPhVXQ/o+/0oduc/x57QG/ QG/YJ+QY/1eW/oHXqHPqDvfMLwzicM/9GD6RI3vR0cG2FckS64HvtmkM+vtE83AwjdeK+dhH99FlcypM +abEL5AknocK+lvNE9Ek77jF3ukY+T3YcUsG4ouDGc FVi3Z1JrOBbF5N76S5LqVGyd1/xqngLGdkVIGQLBhNcKGPJTqKsyRzKbGzJRXGB1tN5LkUyALLZlDB8f bBUKXsVeZC3kqOKYAxBfWE2wdFWPNtNgpIV1VXjiI7q/hzHxYq6tmRWzzs2JzQpYQVWLSMpFUyITJTSP DUVpOrhuvyEuiHbHyhIoI0lrxAfIe+NgcBwMjoPBcT Gtc4JwYXlo5PyQ81UjIDtIs7CvDBrNFbhK4VpGkVrEPwo8xwRBPsdL/PQK8spfH6EERQYBGg7tCTaz07 p6L7A63FsvwSyUSxQ+hPeM/FQ6PRuLmsb/J+znzv+E99z/E3pD/ScQCSKogfgZiiB+3zZBJmXYsWoP9M Anam/B8lT+hD//8GJJPtLziOgfMes0LKoUBtd/QBtZh 0H7OKt1E+vwWKl9+MEasmitmE5axYKgSYPus/YQfsgvpDcqfYBCMiBFZRBaRDoP/BIPQL+I/wSAEkQCy n66ZZKNwBCCYEehPOxGEQSSdAy67+CR16IKBoxjxqC+Ek/z50SgzVY+cvRwHx/nT6p+s1dE8fIjwrir0 qs84gnknrfhG3AMZ9YoOX+FnA60+RR9yfKx9tALqip kdT8o8cupwNPutpR1fy6RC+D1HWdPLs/jPEu8vCj4maKmDo/qHQ4BSrf/e2wlA3vhw8DpK/4QXj/wT/B VC/QoinDTt2WlWoCdnz2d1STkgLvrIJWXPOu0/pkgEcIsy15881M6duI1O7A4w/oSTenJvnbkJ+XeC60 S6xNGWFP2fOmLTfY2qGpL6RD4F/qB5TSUc9SftXmNh XLVtNY4UpKT51W/vn13bL59Saki4AFPv+LqVPCJNBXmTEhRNLUUABRNSCDciNAFEANWHBBP4ndlDKNRL FKL9TXXuICZlW4XKIEfV9drTnUJikWgzhzMxRrZHRQOXtYafRR1yzgef0rt7GUEQKO+PAkaIchyoEFEi HnAVBSVeN2pMM2tF9gD9dbr9B0aSIoKPBCVlSk7wmI TZ5F0JdYDt3J8cJxrYXnWPPaUO2S+KrNIjyGgDF5GAFKAyTQ3fTTUMm3KC+2CAyXUkk11DaaixX5QJ7M rm3wDnB1GU51qtCb6zl3JiqZX3IkXfOnGZKneTzAQa4EiSK+zuIJru01+qK3EYHwQdcbU9OmwP1wpiwu f0P4e4bfwWKHOuthuTy1eJt2+Al2S1+6xXSsb3e1WQ QR99pAGBPRpgBCNDxavQMFKgkJ3mR9nm18fCo+NyLlBYvuv2ORUm0D3xRJR1YTdXKU5t2WIavZ6tfgtM dSb4QjWKZ1iTZpZqPySKgWY0qc64zTNGdbdRqpEXuxWbJgApECPPENUPDKDCxYSBZW/9nYV/vRbaszZa yuhZ8miwVo7/9PhsKBw1/AYzK6lQlK3u/GDtzfx3CX kX/8q31AUqfRr+4h07x0+8o+u6qSc4RZ/yNhq1HDbsSU3D8amdUdAnG0rT/OdCreWhtqOdNqE6hsRH98 o2a0a5jVda48jlAR6p70fWTs4AFrTG7FYWrHf50XIVXcK0NahNGFac1ZkHmQhzb842felHHjK9IMyTLh ga7Kpdw4ciQ5tzNO3CMPQXqEZZDsWPPUIOGXL0Potf jcFnY/DAPHc2Qf+LnCza7PqPxSWEru60rSt9vZNQrQWHRU3WN3BVL9WxXSF6KQnROXNGnfQLQN4gUdQL 13/YAhILSNTpCmXDV1SWrWJGQ5sVyyQfrGEMZoqnXSdZUcTVcCfZpQAgCmiSMwYh6aFJVBoDgpdsb3UR ZadaNH3epVMDJewlHI8tvMK7GFMPU6SByoBWGBiVIS /DSuycSKG4QX0BiCksFlcTCzLLOEMQZXdBOVDGlvERPDAXGBNVmNbhYLlLWNmR3iMEAtQ4TLFS72pAXn Kmv7OHWYGKBHCBkOR9iZsXz+ER3eTs4T6ADriBg6NRdMnUYT2JHRIdabFZ8qYZNwB0kTUQdF3xp1fM8A swlZND1m0wdZgP55IcHqkXfMDRVsFywWAhCYXLXjLM LxxykKzi/hTRgfypbnzMaCRIX0Qr/5o6Vy6oGiWlU3Pkl9Lt/MuNyHr+9MHqMv2H7wdKzQkRvr2hXGpR zpKkj1fs4xNVYSFa/ZhUklcqQnJ0t95nNPb/csyyvn+5bFngvwUigwjembLI/8w054vSnmg/x7y72Rf4 455wPuApQ5/QPhKL/UtV+12cNF2Hed2GzU0Q01yfUP 0Oy2vIyCJ319EhMWDIB3RirywEzVeYKPRoxuV2lvnCWFk9XcALGCSxAPJzVhZEbsXCmUIYpDD9cGngGW pMUrDJE5CxfEPan6AGFTTLEGsbUElnXknCTWNVf2+tNYeSRlQDJDkOzRx3YzPDaKcNL+CRnhf9EdiPff KfLKr6lRoInRbmX9G/WCOo7s9gD2PnlH/M89HzcYQd p/JxF4rE6INiAOaoabMIM84AcTRLps84Fxz7uW9LOIViyyj+2IYA236vqQSqvIE0tHkCnkSILPc2pvVX KREopIJFQYkQYKH7G82IUFHznSmqFGyBd/SR0ZkG5YupM36fqREbPMvreB+LjBiM8oELJuLw0CiyctXC NXaSN+HSq8hcDmeS7NyRFYaaR0naCMC3jBwdj5YU3z RenTIJEz4EAUXPZCnn1rTZIICGYXTpbFowBoQmTZRSQyvEfFgmi1biomwXdTQcKEF9EIqDti9odG+/M/ fVoQkhl4YjPpxIwUYngBthg6aMGUMRxWHbuPbeCzFCNizHaQYPN9xHXnbGrAOyD+47D+47D+45Z90ZS6 qBYtYY8ohX/pUTOhXL4o7WjA00uIv2MIj5eXs0LB96 JcvBlJQHnf27CSJqCgIVEAMURrWEMQ69j3RSJ9erApJHEN36E60RihQCYRzjbeHCYy97ZaOaHnrYvfcZ BjKcUUuAvXoG5shHMjkZVqhZo6OwWBkz8LGKURmnPr3VmmB+BizJS/CETJRdJdgL/dL9OTyBQeq5HitW A4ejjEVABCaa+EzqZl30IUiLokGamRsLYBhGn+KJKV M1RWlzO2SGlpHH5HFINUTbr0gs7srEEVMHseOcqMikygCKEXWCHha+tjsBTBoCzxIA6FMAh3PwAr87F7 OMEcm9KNuoLlD4GGyg7C6FN6ek2OIE7qy1TKEYRRB5/D5KwH/t8SXujaUttduKArwNprCCC+zmnVQryW Uvh4E6wFyZx7HEqxrbbUxfG2PcqqabFtoF/kKSGdzB E0XfUAqTKgmc19TfUF0xAZrq7SCUdXOqksCgBRrA6ccZykf513rUEpCxUDTBRdWVeChBmHPyLGHMLsDE WcLUMKZdDZXZTGiTRsG5V9faqNFnxwDt1fvOn1FM6ZJVVYzFJMtLObU+JwPMp2ND2FIIIfjBLfGKJDYc D8YPEUMrCeMITXEDgVKdwTpNG0RNFOFolJNDSzijGJ [file] ZXC4Qra3AwNGFnGXJQQy3+[id number]== ID Date Data Source [id number] 09/16/2019 10:31:01 AM EST [facility] Name Value Range Interpretation Code Description Data Lucille rce(s) Supporting Document(s) E CHAFFEENSIS IGG [facility] <1:64Reference range: <1:64 INTERPRETIVE INFORMATION: Ehrlichia Chaffeensis IgG Ab Less than 1:64 ....... Negative: No significant level of Ehrlichia chaffeensis IgG antibody detected. 1:64-1:128 ........... Equivocal: Questionable presence of Ehrlichia chaffeensis IgG antibody detected. Repeat testing in 10-14 days may be helpful. 1:256 or greater ..... Positive: Presence of IgG antibody to Ehrlichia chaffeensis detected, suggestive of current or past infection. Seroconversion between acute and convalescent sera is considered strong evidence of recent infection. The best evidence for infection is a significant change (fourfold difference in titer) on two appropriately timed specimens, where both tests are done in the same laboratory at the same time. Test developed and characteristics determined by [employer]. See Compliance Statement B: [email or web address] E CHAFFEENSIS IGM [facility] < 1:16Reference range: < 1:16 INTERPRETI VE INFORMATION: Ehrlichia Chaffeensis IgM Ab Less than 1:16 ....... Negative - No significant level of Ehrlichia chaffeensis IgM antibody detected. 1:16 or greater ...... Positive - Presence of IgM antibody to Ehrlichia chaffeensis detected, suggestive of current or recent infection. While the presence of IgM antibodies suggest current or recent infection, low levels of IgM antibodies may occasionally persist for more than 12 months post-infection. A single IgM result should be interpreted with caution. Test developed and characteristics determined by [employer]. See Compliance Statement B: [employer] Performed by [employer], [address] [place] [address] [email or web address] Christ Kim MD, Lab. Director ID Date Data Source [id number] 09/13/2019 07:26:09 AM EST [facility] Name Value Range Interpretation Code Description Data Lucille rce(s) Supporting Document(s) SODIUM 137 mmol/L (136-145) [facility] POTASSIUM 4.6 mmol/L (3.6-5.2) [facility] CHLORIDE 105 mmol/L (100-108) [facility] CO2 24 mmol/L (22-31) [facility] ANION GAP 8 mmol/L (7-16) [facility] UREA NITROGEN 16 mg/dL (7-24) [facility] CREATININE 1.36 mg/dL (0.80-1.30) H [facility] BUN/CREAT RATIO 11.8 RATIO (10.0-20.0) [facility] GLUCOSE 135 mg/dL (70-99) [facility] CALCIUM 8.4 mg/dL (8.4-10.2) [facility] GFR 52 ml/min/1.73m2 (>59) L [facility] GFR ( AMER) >60 ml/min/1.73m2 (>59) [facility] GFR INTERPRETATION [facility] --NORMAL KIDNEY FUNCTION OR MILD DISEASE - GFR >OR= 60CHRONIC KIDNEY DISEASE - GFR 15 - 59RENAL FAILURE - GFR <15 Est. GFR calculation based on the MDRDstudy equation, which assumes a steadystate for creatinine. Est. GFR should notbe used for medication dosing. ID Date Data Source [id number] 09/13/2019 07:04:55 AM EST [facility] Name Value Range Interpretation Code Description Data Lucille rce(s) Supporting Document(s) WBC 8.3 10*3/uL (4.1-11.0) [facility] RBC 4.26 10*6/uL (4.60-6.10) L [facility] HGB 12.3 g/dL (13.5-18.0) L [facility] HCT 37.2 % (41.0-53.0) L [facility] MCV 87.4 fL (80.0-95.0) [facility] MCH 28.8 pg (27.0-32.0) [facility] MCHC 32.9 g/dL (32.0-36.0) [facility] RDW 14.5 % (10.5-14.5) [facility] PLT 165 10*3/uL (150-450) [facility] MPV 7.4 fL (7.1-10.7) [facility] NEUT % 48.2 % (35.0-75.0) [facility] LYMPH % 34.3 % (16.0-52.0) [facility] MONO % 17.1 % (0.0-8.0) H [facility] EOS % 0.1 % (0.0-5.0) [facility] BASO % 0.3 % (0.0-4.0) [facility] NEUT # 4.0 10*3/uL (1.8-7.7) [facility] LYMPH # 2.9 10*3/uL (1.2-4.8) [facility] MONO # 1.4 10*3/uL (0.0-0.8) H [facility] Eosinophils [#/volume] in Blood by Automated count 0.0 10*3/uL (0.0-0 .5) [facility] BASO # 0.0 10*3/uL (0.0-0.2) [facility] ID Date Data Source [id number] 09/14/2019 10:30:33 AM EST [facility] SPECIMEN DESCRIPTION MIDSTREAM UR INE,CLEAN CATCHCULTURE RESULTS NO GROWTHREPORT STATUS FINAL 09/14/2019 Name Value Range Interpretation Code Description Data Lucille rce(s) Supporting Document(s) ID Date Data Source [id number] 09/12/2019 09:17:39 PM EST [facility] Name Value Range Interpretation Code Description Data Lucille rce(s) Supporting Document(s) POC GLUCOSE 144 mg/dL (70-99) H [facility] NOTIFIED NURSEPERFORMED BY CLINICAL S TAFF ID Date Data Source [id number] 09/12/2019 04:50:21 PM EST [facility] Name Value Range Interpretation Code Description Data Lucille rce(s) Supporting Document(s) POC GLUCOSE 185 mg/dL (70-99) H [facility] NOTIFIED NURSEPERFORMED BY CLINICAL S TAFF ID Date Data Source [id number] 09/18/2019 10:21:20 AM EST [facility] SPECIMEN DESCRIPTION PERIPHERALSP ECIAL REQUESTS NONECULTURE RESULTS NO GROWTH 6 DAYSREPORT STATUS FINAL 09/18/2019 Name Value Range Interpretation Code Description Data Lucille rce(s) Supporting Document(s) ID Date Data Source [id number] 09/12/2019 11:46:03 AM EST [facility] Name Value Range Interpretation Code Description Data Lucille rce(s) Supporting Document(s) POC GLUCOSE 132 mg/dL (70-99) H [facility] PERFORMED BY CLINICAL STAFF ID Date Data Source [id number] 09/12/2019 10:26:03 AM EST [facility] Name Value Range Interpretation Code Description Data Lucille rce(s) Supporting Document(s) POC GLUCOSE 157 mg/dL (70-99) H [facility] NOTIFIED NURSEPERFORMED BY CLINICAL S TAFF ID Date Data Source [id number] 09/12/2019 08:26:28 AM EST [facility] Name Value Range Interpretation Code Description Data Lucille rce(s) Supporting Document(s) POC GLUCOSE 150 mg/dL (70-99) H [facility] NOTIFIED NURSEPERFORMED BY CLINICAL S TAFF ID Date Data Source [id number] 09/12/2019 05:29:39 AM EST [facility] Name Value Range Interpretation Code Description Data Lucille rce(s) Supporting Document(s) SODIUM 133 mmol/L (136-145) L [facility] POTASSIUM 4.7 mmol/L (3.6-5.2) [facility] CHLORIDE 101 mmol/L (100-108) [facility] CO2 25 mmol/L (22-31) [facility] ANION GAP 7 mmol/L (7-16) [facility] UREA NITROGEN 21 mg/dL (7-24) [facility] CREATININE 1.74 mg/dL (0.80-1.30) H [facility] BUN/CREAT RATIO 12.1 RATIO (10.0-20.0) [facility] GLUCOSE 161 mg/dL (70-99) H [facility] CALCIUM 8.3 mg/dL (8.4-10.2) L [facility] GFR 39 ml/min/1.73m2 (>59) L [facility] GFR ([facility] AMER) 47 ml/min/1.73m2 (>59) L [facility] GFR INTERPRETATION [facility] --NORMAL KIDNEY FUNCTION OR MILD DISEASE - GFR >OR= 60CHRONIC KIDNEY DISEASE - GFR 15 - 59RENAL FAILURE - GFR <15 Est. GFR calculation based on the MDRDstudy equation, which assumes a steadystate for creatinine. Est. GFR should notbe used for medication dosing. ID Date Data Source [id number] 09/12/2019 05:14:13 AM EST [facility] Name Value Range Interpretation Code Description Data Lucille rce(s) Supporting Document(s) WBC 9.6 10*3/uL (4.1-11.0) [facility] RBC 4.80 10*6/uL (4.60-6.10) [facility] HGB 13.8 g/dL (13.5-18.0) [facility] HCT 41.4 % (41.0-53.0) [facility] MCV 86.3 fL (80.0-95.0) [facility] MCH 28.8 pg (27.0-32.0) [facility] MCHC 33.4 g/dL (32.0-36.0) [facility] RDW 14.4 % (10.5-14.5) [facility] PLT 178 10*3/uL (150-450) [facility] MPV 7.1 fL (7.1-10.7) [facility] ID Date Data Source [id number] 09/12/2019 12:54:00 AM EST [facility] [id number] [place], [place] [address]PATIENT NAME: NNAMDI CLAUDIO OF : 1950REPORT: ADMISSION NOTEPATIENT NUMBER: [id number] STATUS: IPMEDICAL RECORD NUMBER: [id number] OF ADMISSION: 09/11/2019ROOM: [id number] AND PHYSICALThe patient to be admitted, as I believe hospitalization will exceed twomidnights.PRIMARY MEDICAL DOCTOR: YOUSUF AcevedoODE STATUS: Full.CHIEF COMPLAINT: FUO, diabetes mellitus, constipation, dehydration [id number] renal failure and hyponatremia, right kidney hy podensity,sleep apnea, weakness with nausea and weight loss.HISTORY OF PRESENT ILLNESS: A pleasant 69-year-old gentleman who hasactually been ill for the past two months now, experiencing nausea and [id number] weight loss. Appetite has been poor and when he sees food, hefinds it not to be appealing. He has been experiencing chills, sweats, andfevers to 101. Urine output has been diminished, but he denies anydysuria, pyuria, or hematuria. He is not experiencing abdominal pain,though he does experience chronic constipation. He was seen at urgent careand sent here. He did have a flu swab there which was negative.PAST MEDICAL HISTORY: Depression; anxiety disorder; diabetes mellitus type2; hypercholesterolemia; hypertension; sleep apnea; chronic back pain;ankylosing spondylitis; lumbar radiofrequency therapy; renal failure, priorcreatinine 1.5; hiatal hernia; abdominal hernia.ALLERGIES: Lipitor.MEDICATIONS:Home Medicationsaspirin (Aspir-81) 81 mg tablet,delayed release (DR/EC) 1 tablet oral dailyMedication Status: activeatenolol 100 mg Tablet 1 tablet oral daily every eveningMedication Status: activeLast Taken Date/Time: italopram 20 mg Tablet 1 tablet oral daily every eveningMedicati on Status: activeLast Taken Date/Time: mpagliflozin (Jardiance) 25 mg Tablet 0.5 tablet oral daily every morningMedication Status: activeLast Taken Date/Time: unknownfluticasone propionate (Flonase Allergy Relief) 50 mcg/actuationspray,suspension 2 spray nasal dailyMedication Status: activegabapentin 300 mg Capsule 1 capsule oral three times a dayMedication Status: activehydrochlorothiazide 25 mg Tablet 0.5 tablet oral daily every morningMedication Status: activeLast Taken Date/Time: 09/11inFLIXimab (RemiCADE) 100 mg Recon Soln 900mg intravenous every 4 weeksMedication Status: activeLast Taken Date/Time: 09/02insulin aspart U-100 (NovoLOG U-100 Insulin aspart) 100 unit/mL Solutionsubcutaneous three times a day before mealsMedication Status: activeLast Taken Date/Time: 60units 09/11 1000insulin glargine (Lantus U-100 Insulin) 100 unit/mL Solution 60 unitsubcutaneous daily at bedtimeMedication Status: activeLast Taken Date/Time: 09/10lisinopril 40 mg Tablet 1 tablet oral dailyMedication Status: activeLast Taken Date/Time: 09/10metFORMIN 500 mg Tablet 1 tablet oral twice a dayMedication Status: activeLast Taken Date/Time: 09/11pantoprazole 40 mg tablet,delayed release (DR/EC) 1 tablet oral dailyMedicat ion Status: activeLast Taken Date/Time: osuvastatin (Crestor) 40 mg Tablet 1 tablet oral dailyMedication Status: activetiZANidine 2 mg Tablet 1 tablet oral three times a day PRNPRN Reason: muscle spasmMedication Status: activeLast Taken Date/Time: month agotraMADol 50 mg Tablet 1 tablet oral every eight hours PRNPRN Reason: painMedication Status: activeLast Taken Date/Time: month agoSOCIAL HISTORY: No tobacco, alcohol, or drug abuse.FAMILY HISTORY: Diabetes.REVIEW OF SYSTEMS: Constitutional: The patient has been experiencingweakness. He has had significant weight loss of 20 pounds over the pasttwo months. Eyes: No acute visual changes. ENT: No difficulty withspeech, swallowing, or hearing. Endocrine: Diabetes. Pulmonary: Noshortness of breath, hemoptysis, or productive cough. Cardiac: No anginalchest pains, palpitations, irregular heartbeat, orthopnea, PND, or syncope.GI: Constipation. No blood or melena. : Decreased urine quantity,though no dysuria, pyuria, or hematuria. Musculoskeletal: No acuteissues. ID: See HPI. Psychiatric: Depression, anxiety disorder. MEDICAL STAFFING COORDINATOR: Negative. Skin: Negative.PHYSICAL EXAMINATION: Vital Signs: Temperature 38.1, pulse 84,respirations 18, blood pressure 105/62. Head: NCAT. Eyes: Scleraeanicteric. Conjunctivae pink. Nasal mucosa intact. Throat: Mucousmembranes are well hydrated. There is no erythema. Neck is thick andbulk y. I could not evaluate for neck vein distention or JVD. No stridoris heard over the trachea. Thyroid is normal to palpation. Lymph System: No cervical or supraclavicular adenopathy. Lungs are clear without wheeze,rales, rhonchi, or consolidation. Cardiac: Regular rate and rhythm. Nomurmurs, gallops, or rubs. Abdomen: Midline abdominal hernia, easilyreducible. Bowel sounds are positive. The abdomen is soft and nontender. I could not evaluate for liver or splenic enlargement given the girth ofthe abdomen. Extremities: No clubbing, cyanosis, or edema. Skin is warm,dry, and well hydrated. MEDICAL STAFFING COORDINATOR: Nonfocal.LABORATORY TESTING: TSH is normal at 1.052. Sodium 132, BUN 22,creatinine 2.18 which is above our last baseline of 1.5. Nonfastingglucose 124. GFR is 30. LFTs are unremarkable.CT scan of abdomen and pelvis - mildly increased stool throughout the colonwithout obstruction. Small fat-containing umbilical hernia. Subcentimeterhypodensity in the right kidney, too small to characterize. Small hiatalhernia.Chest x-ray - minimal left base atelectasis/scar. No pneumonia or otheracute abnormality.CBC showing a modest elevation in white count at 11.8 with essentiallybenign differential beyond 10 percent monocytes, H and H 14.9/46.8,platelet count 243,000.Urinalysis showing a specific gravity which is elevated at 1.032, proteins1+, ketones 1+, bilirubin 1+, 1+ bacteria, 3 to 5 hyaline casts. Urinemicroscopic - 0 to 2 rbc's, 0 to 2 wbc's, 1+ epithelial cells.IMPRESSION AND PLAN:1. Fever of unknown origin. The patient to be pancultured and started on azithromycin and Rocephin. I will be making arrangements for an echocardiogram as well.2. Diabetes mellitus. To be addressed with diet and sliding-scale insulin.3. Constipation. The patient to be started on Colace and MiraLax.4. Dehydration with [id number] renal failure and hyponatremia. The patient to be started on IV fluid with followup lab testing. He is normally on a diuretic, which we are going to hold.5. Right kidney hypodensity. I suspect this can be addressed as an outpatient, though I will leave that decision to the day hospitalist.6. Obstructive sleep apnea. The patient is to use hospital unit.7. Weakness with nausea and weight loss. PT has been consulted. I will leave it to the day hospitalist to decide if GI consultation is warranted. He will be started on Protonix and Zofran.8. Please see admitting orders.DICTATED BY: KLAUDIA Dowdictated: 09/11/2019 22:32DT: 09/11/2019 22:35Job #: [id number]: Joseph Segundo MDNOTE: [facility] computer generated reports are notconfirmed or authenticated unless they are signed by the providerElectronically Authenticated by:VALERI GALEAS MD On 09/12/2019 12:54 AM EST Name Value Range Interpretation Code Description Data Lucille rce(s) Supporting Document(s) ID Date Data Source [id number] 09/11/2019 09:20:36 PM EST [facility] Name Value Range Interpretation Code Description Data Lucille rce(s) Supporting Document(s) URINE WBC (0-5) [facility] URINE RBC (0-2) [facility] EPITHELIAL CELLS 1+ [HPF] [facility] BACTERIA 1+ [HPF] [facility] HYALINE CASTS [facility] COARSE GRAN CAST [facility] ID Date Data Source [id number] 09/11/2019 09:01:22 PM EST [facility] Name Value Range Interpretation Code Description Data Lucille rce(s) Supporting Document(s) COLOR [facility] PERFORMED AT [address] [place] [address] APPEARANCE [facility] SPEC GRAV URINE 1.032 (1.003-1.030) H [facility] PH URINE 5.0 (5.0-7.5) [facility] LEUK ESTERASE (NEG) [facility] CRITERIA FOR CULTURE NOT MET.CULTURE CAN BE ADDED WITHIN 36 HOURS OFCOLLECTION. NITRITE URINE (NEG) [facility] PROTEIN URINE 1+ (NEG) A [facility] GLUCOSE URINE (NEG) [facility] KETONE URINE (NEG) [facility] UROBILINOGEN 1.0 mg/dL (0-1.0) [facility] BILIRUBIN URINE 1+ (NEG) A [facility] INTERFERING SUBSTANCES MAY CAUSE FALSEPO SITIVE BILIRUBIN, WHICH HAS BEENSHOWN TO BE CLINICALLY INSIGNIFICANT.CORRELATE WITH OTHER TESTING. BLOOD/HGB URINE (NEG) [facility] ID Date Data Source [id number] 09/11/2019 06:22:00 PM EST [facility] DATE OF EXAM: 09/11/2019FRONTAL AND LATE RAL CHEST TWO VIEWS INDICATION: FEVERCOMPARISON: None FINDINGS: Mediastinal and hilar structures are normal. Cardiac silhouette is unremarkable. Minimal left base atelectasis/scar. No pneumonia or edema. No pleural effusions or pneumothorax. IMPRESSION: Minimal left base atelectasis/scar. No pneumonia or other acute abnormality. Professional interpretation performed at [facility] .End of diagnostic report for accession: [id number] Interpreted: Efrain Chinchilla MDTranscribed: 09/11/2019 06:22 PMSigned: 09/11/2019 06:22 PM Efrain Chir[address] [facility] # [id number] BILL # [id number] Name Value Range Interpretation Code Description Data Lucille rce(s) Supporting Document(s) ID Date Data Source [id number] 09/11/2019 06:30:00 PM EST [facility] DATE OF EXAM: 09/11/2019CT ABDOMEN AND P JOSH WITHOUT IV CONTRAST INDICATION: Nausea and vomitingCOMPARISON: NoneIV CONTRAST: none One or more of the following dose reduction techniques were utilized in effectively lowering the radiation dose for this examination: Automated Exposure Control, Adjustment of the mA and/or kV according to patient size, or Iterative reconstruction. FINDINGS: LUNG BASES: Minimal basilar atelectasis. No pleural effusions. No lung base pneumonia. Small hiatal hernia. LIVER: Unremarkable liver and gallbladder SPLEEN: Normal. PANCREAS: Normal. ADRENALS: Normal bilaterally. KIDNEYS/: Subcentimeter hypodensities right mid kidney too small to characterize. No hydronephrosis or nephrolithiasis. Grossly normal bladder. BOWEL/GI: No bowel obstruction. No appendicitis or diverticulitis. Mildly increased stool throughout colon most pronounced in the rectum. No colitis. No free air or free fluid. Small fat-containing umbilical hernia. No abnormal gastric distention. NODES/RETROPERITONEUM: No adenopathy, AAA, or retroperitoneal hematoma. SKELETAL: Multilevel moderate degenerative disc change. IMPRESSION: Mildly increased stool throughout the colon without obstru ction. Small fat-containing umbilical hernia. Subcentimeter hypodensities in the right kidney too small to characterize. Small hiatal hernia. Professional interpretation performed at [facility] .End of diagnostic report for accession: [id number] Interpreted: Efrain Chinchilla MDTranscribed: 09/11/2019 06:23 PMSigned: 09/11/2019 06:30 PM Efrain Chinchilla MD -------- [facility] ACC # [id number] BILL # [id number] Name Value Range Interpretation Code Description Data Lucille rce(s) Supporting Document(s) ID Date Data Source [id number] 09/17/2019 11:06:19 AM EST [facility] SPECIMEN DESCRIPTION PERIPHERALSP ECIAL REQUESTS NONECULTURE RESULTS NO GROWTH 6 DAYSREPORT STATUS FINAL 09/17/2019 Name Value Range Interpretation Code Description Data Lucille rce(s) Supporting Document(s) ID Date Data Source [id number] 09/11/2019 06:39:41 PM EST [facility] Name Value Range Interpretation Code Description Data Lucille rce(s) Supporting Document(s) WBC 11.8 10*3/uL (4.1-11.0) H [facility] RBC 5.29 10*6/uL (4.60-6.10) [facility] HGB 14.9 g/dL (13.5-18.0) [facility] HCT 46.8 % (41.0-53.0) [facility] MCV 88.4 fL (80.0-95.0) [facility] MCH 28.1 pg (27.0-32.0) [facility] MCHC 31.8 g/dL (32.0-36.0) L [facility] RDW 14.6 % (10.5-14.5) H [facility] PLT 243 10*3/uL (150-450) [facility] MPV 7.3 fL (7.1-10.7) [facility] NEUT % 44.0 % (35.0-75.0) [facility] BAND % 4.0 % (0.0-11.0) [facility] LYMPH % 34.0 % (16.0-52.0) [facility] ATYP LYMPH % 7.0 % (0.0-5.0) [facility] [place] MONO % 10.0 % (0.0-8.0) H [facility] BASO % 1.0 % (0.0-4.0) [facility] NEUT # 5.2 10*3/uL (1.8-7.7) [facility] BAND # 0.5 10*3/uL [facility] LYMPH # 4.0 10*3/uL (1.2-4.8) [facility] ATYP LYMPH # 0.8 10*3/uL [facility] MONO # 1.2 10*3/uL (0.0-0.8) H [facility] BASO # 0.1 10*3/uL (0.0-0.2) [facility] ANISO 1+ [facility] ID Date Data Source [id number] 09/11/2019 06:10:56 PM EST [facility] Name Value Range Interpretation Code Description Data Lucille rce(s) Supporting Document(s) TSH,ULTRASENSITIVE @ 1.052 mIU/L (0.360-4.170) [facility] PERFORMED AT [address] [facility] [address] ID Date Data Source [id number] 09/11/2019 06:10:56 PM EST [facility] Name Value Range Interpretation Code Description Data Lucille rce(s) Supporting Document(s) MAGNESIUM 2.2 mg/dL (1.7-2.4) [facility] ID Date Data Source [id number] 09/11/2019 06:10:56 PM EST [facility] Name Value Range Interpretation Code Description Data Lucille rce(s) Supporting Document(s) LIPASE 105 U/L (65-230) [facility] ID Date Data Source [id number] 09/11/2019 06:10:56 PM EST [facility] Name Value Range Interpretation Code Description Data Lucille rce(s) Supporting Document(s) TOTAL PROTEIN 8.3 g/dL (6.4-8.2) H [facility] ALBUMIN 3.5 g/dL (3.2-4.5) [facility] GLOBULIN 4.8 g/dL (2.7-4.3) H [facility] ALB/GLOB RATIO 0.7 RATIO [facility] BILIRUBIN,TOTAL 0.7 mg/dL (0.0-1.0) [facility] BILIRUBIN,CONJUGATED 0.2 mg/dL (0.0-0.3) [facility] BILIRUBIN,UNCONJ. 0.5 mg/dL (0.0-0.7) [facility] ALKALINE PHOSPHATASE 102 U/L (45-117) [facility] AST (SGOT) 24 U/L (11-39) [facility] ALT (SGPT) 38 U/L (12-78) [facility] ID Date Data Source [id number] 09/11/2019 06:10:52 PM EST [facility] Name Value Range Interpretation Code Description Data Lucille rce(s) Supporting Document(s) SODIUM 132 mmol/L (136-145) L [facility] POTASSIUM 4.5 mmol/L (3.6-5.2) [facility] CHLORIDE 97 mmol/L (100-108) L [facility] CO2 30 mmol/L (22-31) [facility] ANION GAP 5 mmol/L (7-16) L [facility] UREA NITROGEN 22 mg/dL (7-24) [facility] CREATININE 2.18 mg/dL (0.80-1.30) H [facility] BUN/CREAT RATIO 10.1 RATIO (10.0-20.0) [facility] GLUCOSE 124 mg/dL (70-99) H [facility] CALCIUM 9.1 mg/dL (8.4-10.2) [facility] GFR 30 ml/min/1.73m2 (>59) L [facility] GFR ( AMER) 36 ml/min/1.73m2 (>59) L [facility] GFR INTERPRETATION [facility] --NORMAL KIDNEY FUNCTION OR MILD DISEASE - GFR >OR= 60CHRONIC KIDNEY DISEASE - GFR 15 - 59RENAL FAILURE - GFR <15 Est. GFR calculation based on the MDRDstudy equation, which assumes a steadystate for creatinine. Est. GFR should notbe used for medication dosing. Procedure Social History Code Duration Value Status Description Data Source(s ) Caffeine Use Details 09/10/2020 12:00:00 AM EST comple claude coffee and soda, 5 cups [facility] ([facility]) Smoking 09/10/2020 12:00:00 AM EST Unknown if ever smoked comp leted Unknown if ever smoked [facility] ([facility]) Alcohol Use Details 09/03/2020 12:00:00 AM EST complet ed all types 3 drinks occasion [facility] ([facility]) 09/03/2020 12:00:00 AM EST Ex-cigarette smoker completed Ex-cigarette smoker [facility] ([facility]) Smoking 08/20/2020 12:00:00 AM EST Non Smoker completed Non Smoke r [facility] ([facility]) Smoking 08/14/2020 12:00:00 AM EST Never Smoker completed Never S moker eCW1 ([facility]) Smoking 08/14/2020 12:00:00 AM EST Never Smoker completed Never S moker eCW1 ([facility]) Alcohol intake 08/07/2020 12:00:00 AM EST Yes completed [facility] Smoking 08/07/2020 12:00:00 AM EST Never smoker completed Never s moker [facility] Smoking 08/05/2020 12:00:00 AM EST Ex-smoker (finding) complet ed Ex-smoker (finding) MAHNAZ ([facility]) Smoking 06/14/2020 12:00:00 AM EDT Never Smoker completed Never S moker eCW1 ([facility]) Smoking 06/14/2020 12:00:00 AM EDT Never Smoker completed Never S moker eCW1 ([facility]) Smoking 02/12/2020 12:00:00 AM EDT Never Smoker completed Never S moker eCW1 ([facility]) Smoking 02/12/2020 12:00:00 AM EDT Never Smoker completed Never S jose eCW1 ([facility]) Caffeine Use Details 11/27/2019 12:00:00 AM EDT comple claude coffee and soda, 5 cups [facility] ([facility]) Smoking 09/12/2019 05:47:00 PM EST Denies Ever Smoked complete d Denies Ever Smoked [facility] Vital Signs ID Date Data Source UNK Name Value Range Interpretation Code Description Data Source(s) Body mass index (BMI) [Ratio] 35.7 kg/m2 35.7 k g/m2 [facility] ([facility]) Body weight 249.00 [lb_av] 249.00 [lb_av] MED[facility] T ([facility]) Body height 70 [in_i] 70 [in_i] [facility] ([facility]) 5'10" Body surface area Derived from formula 2.29 m2 2.29 m2 [facility] ([facility]) Body weight 112.946 kg 112.946 kg [facility] ([facility]) Maceo body weight 166 [lb_av] 166 [lb_av] MEDEN T ([facility]) Body weight 112.946 kg 112.946 kg [facility] ([facility]) Body weight 249.00 [lb_av] 249.00 [lb_av] MEDEN T ([facility]) Body mass index (BMI) [Ratio] 41.28 kg/m2 Overweight 41.28 kg/m2 [facility] ([facility]) Diastolic blood pressure 68 mm[Hg] 68 mm[Hg] [facility] ([facility]) Systolic blood pressure 130 mm[Hg] 130 mm[Hg] N [facility] ([facility]) Body weight 134.263 kg 134.263 kg [facility] ([facility] Body height 180.34 cm 180.34 cm [facility] ([facility] Body surface area Derived from formula 2.28 m2 2.28 m2 [facility] ([facility]) Body weight 111.132 kg 111.132 kg [facility] ([facility]) Maceo body weight 166 [lb_av] 166 [lb_av] MEDEN T ([facility]) Body mass index (BMI) [Ratio] 35.1 kg/m2 35.1 k g/m2 [facility] ([facility]) Body weight 245.00 [lb_av] 245.00 [lb_av] [facility] Body height 70 [in_i] 70 [in_i] [facility] ([facility]) 5'10" Body surface area Derived from formula 2.28 m2 2.28 m2 [facility] ([facility]) Body weight 112.039 kg 112.039 kg [facility] ([facility]) Maceo body weight 166 [lb_av] 166 [lb_av] [facility] Body mass index (BMI) [Ratio] 35.4 kg/m2 35.4 k g/m2 [facility] ([facility]) Body weight 247.00 [lb_av] 247.00 [lb_av] [facility] ([facility]) Body height 70 [in_i] 70 [in_i] [facility] ([facility]) 5'10" Oxygen saturation in Arterial blood by Pulse oximetry 97 % 97 % [facility] ([facility]) Room Air Heart rate 78 /min 78 /min [facility] ([facility]) Diastolic blood pressure 78 mm[Hg] 78 mm[Hg] [facility] ([facility]) Systolic blood pressure 124 mm[Hg] 124 mm[Hg] [facility] Diastolic blood pressure 62 mm[Hg] 62 mm[Hg] eCW1 ([facility]) Systolic blood pressure 115 mm[Hg] 115 mm[Hg] e CW1 ([facility]) Body temperature 97.1 [degF] 97.1 [degF] eCW1 ( [facility]) Respiratory rate 18 /min 18 /min eCW1 ([facility]) Heart rate 56 /min 56 /min eCW1 ([facility]) Body mass index (BMI) [Ratio] 36.01 kg/m2 36.01 kg/m2 eC1 ([facility]) Body height 70 [in_i] 70 [in_i] eCW1 ([facility]) Body weight 251 [lb_av] 251 [lb_av] eCW1 ([facility]) Oxygen saturation in Arterial blood by Pulse oximetry 98 % 98 % [facility] Body mass index (BMI) [Ratio] 35.73 kg/m2 35.73 kg/m2 [facility] Body weight 112.946 kg 112.946 kg [facility] Body height 177.8 cm 177.8 cm [facility] Body temperature 36.[address] [facility] Heart rate 61 /min 61 /min [facility] Diastolic blood pressure 70 mm[Hg] 70 mm[Hg] [facility] Systolic blood pressure 122 mm[Hg] 122 mm[Hg] [facility] Inhaled oxygen concentration 21 % 21 % [facility] Inhaled oxygen flow rate 0 L/min 0 L/min [facility] ([facility]) Oxygen saturation in Arterial blood by Pulse oximetry 98 % 98 % [facility] ([facility]) PhenX - pain, abdominal - type and intensity protocol 0 0 [facility] ([facility]) Body weight 195 [lb_av] 195 [lb_av] [facility]) Body temperature 96.9 [degF] 96.9 [degF] GREENW AY ([facility]) Respiratory rate 18 /min 18 /min MAHNAZ ([facility]) Heart rate rhythm 1 1 GREENWA Y ([facility]) Heart rate 65 /min 65 /min [facility] ([facility]) Diastolic blood pressure 60 mm[Hg] 60 mm[Hg] MAHNAZ ([facility]) Systolic blood pressure 118 mm[Hg] 118 mm[Hg] G REENWAY ([facility]) Body weight 110.225 kg 110.225 kg MEDENT ([facility], ) Maceo body weight 166 [lb_av] 166 [lb_av] MEDEN T ([facility], ) Body mass index (BMI) [Ratio] 34.9 kg/m2 34.9 k g/m2 [facility] ([facility], ) Body weight 243.00 [lb_av] 243.00 [lb_av] MEDEN T ([facility]) Body height 70 [in_i] 70 [in_i] MEDENT ([facility], ) 5'10" Body mass index (BMI) [Ratio] 34.3 kg/m2 34.3 k g/m2 [facility] ([facility]) Body height 70 [in_i] 70 [in_i] MEDENT ([facility], [facility]) 5'10" Body weight 239.00 [lb_av] 239.00 [lb_av] MEDEN T ([facility], [facility]) Body temperature 98.6 [degF] 98.6 [degF] MEDENT ([facility], [facility]) Oxygen saturation in Arterial blood by Pulse oximetry 99 % 99 % [facility] ([facility], [facility]) Respiratory rate 20 /min 20 /min [facility] ( [facility], [facility]) Heart rate 67 /min 67 /min [facility] ([facility]) Diastolic blood pressure 80 mm[Hg] 80 mm[Hg] [facility] ([facility], [facility]) Systolic blood pressure 139 mm[Hg] 139 mm[Hg] M EDENT ([facility], [facility]) Diastolic blood pressure 59 mm[Hg] 59 mm[Hg] eCW1 ([facility]) Systolic blood pressure 106 mm[Hg] 106 mm[Hg] e CW1 ([facility]) Body temperature 96.2 [degF] 96.2 [degF] eCW1 ( [facility]) Respiratory rate 18 /min 18 /min eCW1 ([facility]) Heart rate 69 /min 69 /min eCW1 ([facility]) Body mass index (BMI) [Ratio] 35.47 kg/m2 35.47 kg/m2 eCW1 ([facility]) Body height 70 [in_i] 70 [in_i] eCW1 ([facility]) Body weight 247.2 [lb_av] 247.2 [lb_av] eCW1 ([facility]) Diastolic blood pressure 78 mm[Hg] 78 mm[Hg] [facility] ([facility]) Systolic blood pressure 142 mm[Hg] 142 mm[Hg] N extGen ([facility]) Respiratory rate 16 /min 16 /min [facility] ([facility]) Body temperature 36.11 Cherrie 36.11 Cherrie [facility] ([facility]) Heart rate 78 /min 78 /min [facility] ([facility]) Diastolic blood pressure 82 mm[Hg] 82 mm[Hg] [facility] ([facility]) Systolic blood pressure 140 mm[Hg] 140 mm[Hg] N [facility] ([facility]) Body weight 112.491 kg 112.491 kg [facility] ([facility]) Body mass index (BMI) [Ratio] 33.61 kg/m2 Overweight 33.61 kg/m2 [facility] ([facility]) Diastolic blood pressure 78 mm[Hg] 78 mm[Hg] [facility] ([facility]) Systolic blood pressure 120 mm[Hg] 120 mm[Hg] N [facility] ([facility]) Body weight 109.316 kg 109.316 kg [facility] Body height 180.34 cm 180.34 cm [facility] Diastolic blood pressure 76 mm[Hg] 76 mm[Hg] [facility] ([facility]) Systolic blood pressure 122 mm[Hg] 122 mm[Hg] N [facility] ([facility]) Respiratory rate 17 /min 17 /min [facility] ([facility]) Body temperature 36.44 Cherrie 36.44 Cherrie [facility] ([facility]) Heart rate 74 /min 74 /min [facility] ([facility]) Diastolic blood pressure 76 mm[Hg] 76 mm[Hg] [facility] ([facility]) Systolic blood pressure 124 mm[Hg] 124 mm[Hg] N [facility] ([facility]) Body weight 112.491 kg 112.491 kg [facility] ([facility] Diastolic blood pressure 78 mm[Hg] 78 mm[Hg] [facility] ([facility]) Systolic blood pressure 122 mm[Hg] 122 mm[Hg] N [facility] ([facility]) Body mass index (BMI) [Ratio] 34.17 kg/m2 Overweight 34.17 kg/m2 [facility] ([facility]) Respiratory rate 16 /min 16 /min [facility] ([facility]) Body temperature 36.39 Cherrie 36.39 Cherrie [facility] ([facility]) Heart rate 84 /min 84 /min [facility] ([facility] Diastolic blood pressure 88 mm[Hg] 88 mm[Hg] [facility] ([facility]) Systolic blood pressure 142 mm[Hg] 142 mm[Hg] N [facility] ([facility]) Body weight 111.130 kg 111.130 kg [facility] ([facility]) Body height 180.34 cm 180.34 cm [facility] ([facility]) Diastolic blood pressure 78 mm[Hg] 78 mm[Hg] eCW1 ([facility]) Systolic blood pressure 132 mm[Hg] 132 mm[Hg] e CW1 ([facility]) Body mass index (BMI) [Ratio] 36.44 kg/m2 36.44 kg/m2 eCW1 ([facility]) Body height 70 [in_i] 70 [in_i] eCW1 ([facility]) Body weight 254 [lb_av] 254 [lb_av] eCW1 ([facility]) Diastolic blood pressure 79 mm[Hg] 79 mm[Hg] eCW1 ([facility]) Systolic blood pressure 152 mm[Hg] 152 mm[Hg] e CW1 ([facility]) Body temperature 96.5 [degF] 96.5 [degF] eCW1 ( [facility]) Respiratory rate 18 /min 18 /min eCW1 ([facility]) Heart rate 61 /min 61 /min eCW1 ([facility]) Body mass index (BMI) [Ratio] 35.95 kg/m2 35.95 kg/m2 W1 ([facility]) Body height 70 [in_i] 70 [in_i] eCW1 ([facility]) Body weight 250.6 [lb_av] 250.6 [lb_av] eCW1 ([facility]) Diastolic blood pressure 80 mm[Hg] 80 mm[Hg] [facility] ([facility]) Systolic blood pressure 120 mm[Hg] 120 mm[Hg] N [facility] ([facility]) Respiratory rate 17 /min 17 /min [facility] ([facility]) Body temperature 36.56 Cherrie 36.56 Cherrie [facility] ([facility]) Heart rate 80 /min 80 /min [facility] ([facility]) Diastolic blood pressure 82 mm[Hg] 82 mm[Hg] [facility] ([facility]) Systolic blood pressure 128 mm[Hg] 128 mm[Hg] N [facility] ([facility]) Body weight 112.491 kg 112.491 kg [facility] ([facility] Diastolic blood pressure 69 mm[Hg] 69 mm[Hg] eCW1 ([facility]) Systolic blood pressure 124 mm[Hg] 124 mm[Hg] e CW1 ([facility]) Body temperature 96.4 [degF] 96.4 [degF] eCW1 ( [facility]) Respiratory rate 18 /min 18 /min eCW1 ([facility]) Heart rate 63 /min 63 /min eCW1 ([facility]) Body mass index (BMI) [Ratio] 35.58 kg/m2 35.58 kg/m2 W1 ([facility]) Body height 70 [in_i] 70 [in_i] W1 ([facility]) Body weight 248.0 [lb_av] 248.0 [lb_av] eCW1 ([facility]) Diastolic blood pressure 76 mm[Hg] 76 mm[Hg] eCW1 ([facility]) Systolic blood pressure 124 mm[Hg] 124 mm[Hg] e CW1 ([facility]) Body mass index (BMI) [Ratio] 35.29 kg/m2 35.29 kg/m2 W1 ([facility]) Body height 70 [in_us] 70 [in_us] eCW1 ([facility]) Body weight Measured 246.0 [lb_av] 246.0 [lb_av ] eCW1 ([facility]) Diastolic blood pressure 68 mm[Hg] 68 mm[Hg] eCW1 ([facility]) Systolic blood pressure 131 mm[Hg] 131 mm[Hg] e CW1 ([facility]) Body temperature 96.0 [degF] 96.0 [degF] eCW1 ( [facility]) Respiratory rate 18 /min 18 /min eCW1 ([facility]) Heart rate 71 /min 71 /min eCW1 ([facility]) Body mass index (BMI) [Ratio] 35.29 kg/m2 35.29 kg/m2 eCW1 ([facility]) Body height 70 [in_us] 70 [in_us] eCW1 ([facility]) Body weight Measured 246.0 [lb_av] 246.0 [lb_av ] eCW1 ([facility]) Diastolic blood pressure 78 mm[Hg] 78 mm[Hg] [facility] ([facility]) Systolic blood pressure 120 mm[Hg] 120 mm[Hg] N [facility] ([facility]) Body mass index (BMI) [Ratio] 34.31 kg/m2 Overweight 34.31 kg/m2 [facility] ([facility]) Respiratory rate 16 /min 16 /min [facility] ([facility] [facility] Body temperature 36.11 Cherrie 36.11 Cherrie Next[facility] ([facility]) Heart rate 78 /min 78 /min [facility] ([facility]) Diastolic blood pressure 80 mm[Hg] 80 mm[Hg] Next[facility] ([facility]) Systolic blood pressure 136 mm[Hg] 136 mm[Hg] N extGen ([facility]) Body weight 111.584 kg 111.584 kg [facility] ([facility] Body height 180.34 cm 180.34 cm NextGen ([facility]) Body weight 111.132 kg 111.132 kg MEDENT ([facility], ) Maceo body weight 166 [lb_av] 166 [lb_av] MEDEN T ([facility], ) Body mass index (BMI) [Ratio] 35.1 kg/m2 35.1 k g/m2 MEDENT ([facility], ) Body weight 245.00 [lb_av] 245.00 [lb_av] MEDEN T ([facility], ) Body height 70 [in_i] 70 [in_i] MEDENT ([facility], ) 5'10" Diastolic blood pressure 74 mm[Hg] 74 mm[Hg] NextGen ([facility]) Systolic blood pressure 120 mm[Hg] 120 mm[Hg] N extGen ([facility]) Body mass index (BMI) [Ratio] 34.31 kg/m2 Overweight 34.31 kg/m2 NextGen ([facility]) Respiratory rate 16 /min 16 /min Next[facility] ([facility]) Body temperature 36.22 Cherrie 36.22 Cherrie [facility] ([facility]) Heart rate 80 /min 80 /min [facility] ([facility]) Diastolic blood pressure 76 mm[Hg] 76 mm[Hg] Next[facility] ([facility]) Systolic blood pressure 132 mm[Hg] 132 mm[Hg] N extGen ([facility]) Body weight 111.584 kg 111.584 kg [facility] ([facility] Body height 180.34 cm 180.34 cm [facility] ([facility] Diastolic blood pressure 80 mm[Hg] 80 mm[Hg] Next[facility] ([facility]) Systolic blood pressure 110 mm[Hg] 110 mm[Hg] N extGen ([facility]) Body mass index (BMI) [Ratio] 34.03 kg/m2 Overweight 34.03 kg/m2 NextGen ([facility]) Respiratory rate 16 /min 16 /min Next[facility] ([facility]) Body temperature 36.11 Cherrie 36.11 Cherrie [facility] ([facility]) Heart rate 76 /min 76 /min [facility] ([facility]) Diastolic blood pressure 82 mm[Hg] 82 mm[Hg] Next[facility] ([facility]) Systolic blood pressure 140 mm[Hg] 140 mm[Hg] N extGen ([facility]) Body weight 110.677 kg 110.677 kg NextGen ([facility]) Body height 180.34 cm 180.34 cm Next[facility] ([facility]) Diastolic blood pressure 78 mm[Hg] 78 mm[Hg] eCW1 ([facility]) Systolic blood pressure 112 mm[Hg] 112 mm[Hg] e CW1 ([facility]) Body mass index (BMI) [Ratio] 35.41 kg/m2 35.41 kg/m2 eCW1 ([facility]) Body height 70 [in_us] 70 [in_us] eCW1 ([facility]) Body weight Measured 246.8 [lb_av] 246.8 [lb_av ] eCW1 ([facility]) Body weight 112.039 kg 112.039 kg MEDENT ([facility], ) Body weight 247.00 [lb_av] 247.00 [lb_av] MEDEN T ([facility], ) Oxygen saturation in Arterial blood by Pulse oximetry 96 % 96 % [facility] ([facility]) Room Air Heart rate 75 /min 75 /min [facility] Diastolic blood pressure 80 mm[Hg] 80 mm[Hg] [facility] Systolic blood pressure 130 mm[Hg] 130 mm[Hg] M EDENT ([facility]) Body height 180.34 cm 180.34 cm NextGen ([facility]) Body mass index (BMI) [Ratio] 34.59 kg/m2 Overweight 34.59 kg/m2 Next[facility] ([facility]) Diastolic blood pressure 70 mm[Hg] 70 mm[Hg] Next[facility] ([facility]) Systolic blood pressure 114 mm[Hg] 114 mm[Hg] N extGen ([facility]) Body weight 112.491 kg 112.491 kg [facility] ([facility] Respiratory rate 16 /min 16 /min NextGen ([facility]) Heart rate 68 /min 68 /min [facility] ([facility]) Diastolic blood pressure 70 mm[Hg] 70 mm[Hg] NextGen ([facility]) Systolic blood pressure 120 mm[Hg] 120 mm[Hg] N extGen ([facility]) Body mass index (BMI) [Ratio] 33.75 kg/m2 Overweight 33.75 kg/m2 Next[facility] ([facility]) Respiratory rate 16 /min 16 /min Next[facility] ([facility]) Body temperature 35.56 Cherrie 35.56 Cherrie [facility] ([facility]) Heart rate 80 /min 80 /min [facility] ([facility]) Diastolic blood pressure 78 mm[Hg] 78 mm[Hg] Next[facility] ([facility]) Systolic blood pressure 122 mm[Hg] 122 mm[Hg] N extGen ([facility]) Body weight 109.769 kg 109.769 kg [facility] ([facility]) Body height 180.34 cm 180.34 cm [facility] Inhaled oxygen concentration 21 % 21 % [facility] Inhaled oxygen flow rate 0 L/min 0 L/min MAHNAZ ([facility]) Oxygen saturation in Arterial blood by Pulse oximetry 95 % 95 % RICHMOND ([facility]) PhenX - pain, abdominal - type and intensity protocol 0 0 MAHNAZ [facility] Body weight 242 [lb_av] 242 [lb_av] [facility] Body temperature 96.5 [degF] 96.5 [degF] GREENW AY ([facility]) Respiratory rate 20 /min 20 /min MAHNAZ [facility] Heart rate rhythm 1 1 GREENWA Y ([facility]) Heart rate 77 /min 77 /min MAHNAZ ([facility]) Diastolic blood pressure 64 mm[Hg] 64 mm[Hg] MAHNAZ [facility] Systolic blood pressure 112 mm[Hg] 112 mm[Hg] G REENWAY ([facility]) Body temperature 36.6 cherrie Normal (applies to non-numeric results) 36.6 cherrie [facility] Respiratory rate 18 min Normal (applies to non-numeric results) 18 min [facility] Body height 176.784 cm Normal (applies to non-numeric resu lts) 176.784 cm [facility] Heart rate 71 min Normal (applies to non-numeric resul ts) 71 min [facility] Diastolic blood pressure 75 mm[Hg] Normal (applies to non-numeric results) 75 mm[Hg] [facility] Systolic blood pressure 116 mm[Hg] Normal (applies t o non-numeric results) 116 mm[Hg] [facility] Deprecated Oxygen saturation in Capillary blood by Oximetry 98 % Normal (applies to non-numeric results) 98 % [facility] Inhaled oxygen concentration 21 % Normal (appl ies to non-numeric results) 21 % [facility] Body weight Measured 108 kg Normal (applies to non-num darvin results) 108 kg [facility] Body mass index (BMI) [Ratio] 34.16 kg/m2 No rmal (applies to non-numeric results) 34.16 kg/m2 [facility] Body mass index (BMI) [Ratio] 34.3 kg/m2 34.3 k g/m2 MEDENT ([facility]) Body height 70 [in_i] 70 [in_i] MEDENT ([facility], [facility]) 5'10" Body weight 239.00 [lb_av] 239.00 [lb_av] MEDEN T ([place] [facility], [facility]) Body temperature 99.3 [degF] 99.3 [degF] MEDENT ([place] [facility], [facility]) Oxygen saturation in Arterial blood by Pulse oximetry 95 % 95 % MEDENT ([facility], [facility]) Respiratory rate 18 /min 18 /min MEDENT ( [facility], [facility]) Heart rate 93 /min 93 /min MEDENT ([facility], [facility]) Diastolic blood pressure 58 mm[Hg] 58 mm[Hg] MEDENT ([facility], [facility]) Systolic blood pressure 92 mm[Hg] 92 mm[Hg] M EDENT ([facility], [facility]) Diastolic blood pressure 67 mm[Hg] 67 mm[Hg] eCW1 ([facility]) Systolic blood pressure 114 mm[Hg] 114 mm[Hg] e CW1 ([facility]) Body temperature 96.9 [degF] 96.9 [degF] eCW1 ( [facility]) Respiratory rate 18 /min 18 /min eCW1 ([facility]) Heart rate 86 /min 86 /min eCW1 ([facility]) Body mass index (BMI) [Ratio] 34.78 kg/m2 34.78 kg/m2 eCW1 ([facility]) Body height 70 [in_us] 70 [in_us] eCW1 ([facility]) Body weight Measured 242.4 [lb_av] 242.4 [lb_av ] eCW1 ([facility]) Diastolic blood pressure 84 mm[Hg] 84 mm[Hg] NextGen ([facility]) Systolic blood pressure 120 mm[Hg] 120 mm[Hg] N extGen ([facility]) Body mass index (BMI) [Ratio] 33.61 kg/m2 Overweight 33.61 kg/m2 NextGen ([facility]) Respiratory rate 16 /min 16 /min NextGen ([facility]) Body temperature 36.33 Cherrie 36.33 Cherrie [facility] ([facility]) Heart rate 72 /min 72 /min [facility] ([facility]) Diastolic blood pressure 80 mm[Hg] 80 mm[Hg] NextGen ([facility]) Systolic blood pressure 128 mm[Hg] 128 mm[Hg] N extGen ([facility]) Body weight 109.316 kg 109.316 kg NextGen ([facility]) Body height 180.34 cm 180.34 cm NextGen ([facility]) Diastolic blood pressure 67 mm[Hg] 67 mm[Hg] eCW1 ([facility]) Systolic blood pressure 119 mm[Hg] 119 mm[Hg] e CW1 ([facility]) Body temperature 96.9 [degF] 96.9 [degF] eCW1 ( [facility]) Respiratory rate 18 /min 18 /min eCW1 ([facility]) Heart rate 82 /min 82 /min eCW1 ([facility]) Body mass index (BMI) [Ratio] 35.67 kg/m2 35.67 kg/m2 eCW1 ([facility]) Body height 70 [in_us] 70 [in_us] eCW1 ([facility]) Body weight Measured 248.6 [lb_av] 248.6 [lb_av ] eCW1 ([facility]) Body weight 114.761 kg 114.761 kg MEDENT ([facility], ) Body weight 253.00 [lb_av] 253.00 [lb_av] MEDEN T ([facility], ) Oxygen saturation in Arterial blood by Pulse oximetry 98 % 98 % LUIZ ([facility], ) Heart rate 79 /min 79 /min LUIZ ([facility], ) Diastolic blood pressure 88 mm[Hg] 88 mm[Hg] LUIZ ([facility], ) Systolic blood pressure 132 mm[Hg] 132 mm[Hg] Bethel AMADOR ([facility], ) Patient Treatment Plan of Care Planned Activity Planned Date Details Description Data Source (s) tizanidine 2 MG Oral Tablet 09/10/2020 12:00:00 AM EST NextGen ([facility]) tizanidine 2 MG Oral Tablet 05/17/2020 12:00:00 AM EDT [facility] tizanidine 2 MG Oral Tablet 05/16/2020 12:00:00 AM EDT Next[facility] ([facility]) tizanidine 2 MG Oral Tablet 02/14/2020 12:00:00 AM EDT NextGen ([facility]) ciclopirox 0.0077 MG/MG Topical Gel 10/26/2019 12:00:00 AM EST eCW1 ([facility]) POLYETHYLENE GLYCOL 3350 142 MG/ML Oral Solution 09/18/2019 12:00:0 0 AM EST MAHNAZ ([facility]) tizanidine 2 MG Oral Tablet 08/11/2019 12:00:00 AM EST eCW1 ([facility]) Metformin hydrochloride 500 MG Oral Tablet Next[facility] ([facility]) Ondansetron 8 MG Oral Tablet Next[facility] ([facility]) tizanidine 2 MG Oral Tablet NextGen ([facility])
[2020-09-26] MEDS ORDERED: propofoL 200 MG/20 ML VIAL As Ordered ONE (07:14)
[2020-09-26] MEDS ORDERED: dexameTHASONE 4 MG/ML 1ML VIAL (J1100 PER 1MG) As Ordered ONE (07:14)
[2020-09-26] MEDS ORDERED: LIDOCAINE W/EPINEPHRINE 1% 20ML VIAL As Ordered ONE ×2 (07:14→08:46)
[2020-09-26] MEDS ORDERED: ROCURONIUM BROMIDE 50 MG/5 ML VIAL As Ordered ONE (07:14)
[2020-09-26] MEDS ORDERED: SUCCINYLCHOLINE 100 MG/5 ML SYRINGE (J0330) As Ordered ONE (07:14)
[2020-09-26] MEDS ORDERED: LIDOCAINE 2% 100MG/5ML SDV (FOR ANES.) As Ordered ONE (07:14)
[2020-09-26] MEDS ORDERED: ONDANSETRON 4MG/2ML VIAL As Ordered ONE (07:14)
[2020-09-26] MEDS ORDERED: MIDAZOLAM INJ 2MG/2ML VIAL (J2250 PER 1MG) As Ordered ONE (07:15)
[2020-09-26] MEDS ORDERED: fentaNYL 100 MCG/2 ML INJECTION (J3010) As Ordered ONE ×4 (07:15→12:02)
[2020-09-26] MEDS ORDERED: OXYMETAZOLINE 0.05% NASAL SPRAY (AFRIN) As Ordered ONE (07:16)
[2020-09-26] MEDS ORDERED: SUGAMMADEX SODIUM 500 MG/5 ML VIAL (BRIDION) As Ordered ONE (08:44)
[2020-09-26] MEDS ORDERED: ePHEDrine SULFATE 25 MG/5 ML(5MG/ML) SYRINGE As Ordered ONE (08:44)
[2020-09-26] MEDS ORDERED: BACITRACIN OINTMENT 30GM TUBE As Ordered ONE (10:33)
[2020-09-26] MEDS ORDERED: oxyCODONE 5MG TAB As Ordered ONE (12:02)
[2020-09-26] MEDS: fentaNYL 100 MCG/2 ML INJECTION (J3010) IV PRN ×4 (12:07→12:25)
[2020-09-26] MEDS: oxyCODONE 5MG TAB PO PRN ×2 (12:10→12:46)
[2020-09-26] MEDS ORDERED: LR 1,000 ML IV SCH (12:30)
[2020-09-26] MEDS ORDERED: ONDANSETRON 4MG/2ML VIAL IV PRN (12:30)
[2020-09-26] MEDS ORDERED: ACETAMINOPHEN TAB 650MG DOSE (2X325MG) PO PRN (12:30)
--- NOTE | 2020-09-26 12:47 | HPEPDOC ---
General Date of Admission 09/26/20 Date of Service: Sep 26, 2020 Chief Complaint The patient is a 70-year-old male admitted with a reason for visit of Left Oral Tongue Carcinoma. Exam Limitations: No limitations Severity: Moderate History of Present Illness Patient is 70 years old male with past history of hyperlipidemia, hypertension, diabetes type 2, acid reflux, rheumatoid arthritis, ankylosing spondylitis, chronic back pain presented to the hospital for elective tongue resection due to squamous cell carcinoma. Patient tolerates procedure well. He denied fever, chills, nausea, vomiting, diarrhea or dysuria. Home Medications Scheduled Aspirin (Ecotrin) 81 Mg Tablet.dr, 81 MG PO DAILY, (Reported) Atenolol (Atenolol) 100 Mg Tab, 100 MG PO DAILY, (Reported) Citalopram Hydrobromide (Citalopram HBr) 20 Mg Tab, 20 MG PO DAILY, (Reported) Empagliflozin (Jardiance) 10 Mg Tablet, Unknown Dose PO DAILY, (Reported) Fluticasone Propionate (Fluticasone Propionate) 16 Gm [place].susp, 1 SPRAY NA DAILY, (Reported) Gabapentin (Gabapentin) 300 Mg Capsule, 300 MG PO TID, (Reported) Hydrochlorothiazide (Hydrochlorothiazide) 25 Mg Tablet, 25 MG PO DAILY, (Reported) Insulin Glargine (Lantus) 100 Unit/1 Ml Vial, 64 UNITS SC QHS, (Reported) Insulin Human Lispro (Novolog) 100 U/Ml Inj, 20 UNITS SC AC, (Reported) Lisinopril (Lisinopril) 40 Mg Tablet, 40 MG PO DAILY, (Reported) Metformin HCl (Metformin HCl ER) 750 Mg Tab.er.24h, 750 MG PO BID, (Reported) Pantoprazole Sodium (Pantoprazole Sodium) 40 Mg Tab, 40 MG PO DAILY, (Reported) Simvastatin (Zocor) 80 Mg Tablet, 80 MG PO DAILY, (Reported) Allergies Coded Allergies: atorvastatin (Verified Adverse Reaction, Unknown, sore muscles, 09/24/20) Past Medical History Medical History HYPERLIPIDEMIA HYPERTENSION DIABETES MELLITUS TYPE 2 ACID REFLUX ARTHRITIS ANKYLOSIS SPONDYLITIS/ ARTHRITIS HEALTH SPEC - [place] BACK PAIN Surgical History LEFT KNEE SURGERY RIGHT FOOT BUNIONECTOMY Family History FATHER: , DIAGNOSED WITH DIABETES MOTHER: ALIVE, UNSPECIFIED CEREBRAL ARTERY OCCLUSION WITH CEREBRAL INFARCTION, OTHER SPECIFIED CONDITIONS INFLUENCING HEALTH STATUS 4 SON(S) , 1 DAUGHTER(S) - HEALTHY. MOTHER HAS HISTORY OF ARTHRITIS AND STROKE. DENIES FAMILY HX OF MELANONA AND PANCREATIC CANCER. Social History * Smoker: Denies Alcohol: occationally Drugs: denies A-FIB/CHADSVASC A-FIB History Current/History of A-Fib/PAF?: No Current PO Anticoag Therapy: No Review of Systems Constitutional: Denies: Chills, Fever Eyes: Denies: Pain ENT: Reports: Other Symptoms (pain after surgery) Skin: Denies: Rash Pulmonary: Denies: Dyspnea, Cough Cardiovascular: Denies: Chest Pain Gastrointestinal: Denies: Nausea, Vomiting Genitourinary: Denies: Dysuria Hematologic: Denies: Bruising Endocrine: Denies: Polydipsia Musculoskeletal: Denies: Neck Pain Neurological: Denies: Weakness Psych: Reports: Mood Normal Physical Examination General Exam: Positive: Alert, Cooperative Eye Exam: Positive: PERRLA ENT Exam: Positive: Pharynx Normal, Other ENT (drainage in place , 30 cc serosanguineous discharge) Neck Exam: Positive: Supple; Negative: JVD Chest Exam: Positive: Clear to auscultation Heart Exam: Positive: Rate Normal Telemetry: Positive: No significant arrhythmia Abdomen Exam: Positive: Normal bowel sounds Extremity Exam: Negative: Clubbing, Cyanosis Skin Exam: Positive: Nl turgor and temperature Neuro Exam: Positive: Strength at 5/5 X4 ext Psych Exam: Positive: Mental status NL Vital Signs Vital Signs Date Time Temp Pulse Resp B/P (MAP) Pulse Ox O2 Delivery O2 Flow Rate FiO2 09/26/20 12:20 73 20 135/64 (87) 94 Nasal Cannula 3 09/26/20 06:34 96.4 Laboratory Data Labs 24H Laboratory Tests 2 09/26/20 07:13: Bedside Glucose (Misc Panel) 153H 09/26/20 11:57: Bedside Glucose (Misc Panel) 193H Assessment/Plan Patient is 70 years old male with past history of hyperlipidemia, hypertension, diabetes type 2, acid reflux, rheumatoid arthritis, ankylosing spondylitis, chronic back pain presented to the hospital for 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 Patient tolerates procedure well. He denied fever, chills, nausea, vomiting, diarrhea or dysuria. Problems (1) Tongue carcinoma Status: Acute Problem Text: Status post surgery Pain management Decadron IV ENT follows him (2) Hyperlipidemia Status: Chronic Problem Text: Continue statin (3) Hypertension Problem Text: Continue home cardioprotective medication Blood pressure under control (4) Diabetes mellitus Status: Chronic Problem Text: Detemir twice a day Insulin sliding scale Plan / VTE VTE Prophylaxis Ordered?: Yes ISIDORO LEE DO Sep 26, 2020 12:47
[2020-09-26] MEDS: HYDROMORPHONE HCL 0.5 MG/ 0.5 ML SYRINGE (J1170 PER 1) IV PRN ×2 (12:57→14:01)
[2020-09-26 13:12] LABS: HEMATOCRIT 48.8 % (42.0-52.0); HEMOGLOBIN 15.6 g/dl (13.5-17.5); MEAN CORPUSCULAR HEMOGLOBIN 28.6 pg (27.0-33.0); MEAN CORPUSCULAR VOLUME 89.4 fl (80.0-96.0); PLATELET COUNT, AUTOMATED 208 10^3/uL (150-450); RED BLOOD COUNT 5.46 10^6/uL (4.30-6.10); WHITE BLOOD COUNT 11.2 10^3/uL (4.0-10.0)
[2020-09-26 13:27] LABS: BILIRUBIN,TOTAL 0.4 MG/DL (0.2-1.0); CALCIUM LEVEL 9.5 MG/DL (8.8-10.2); CREATININE FOR GFR 1.64 MG/DL (0.70-1.30); GLOMERULAR FILTRATION RATE 44.2 (>42); POTASSIUM SERUM 5.1 MEQ/L (3.5-5.1); TOTAL PROTEIN 7.6 GM/DL (6.4-8.2)
[2020-09-26] MEDS ORDERED: dexameTHASONE 4 MG/ML 1ML VIAL (J1100 PER 1MG) IV SCH (16:00)
[2020-09-26] MEDS: CHLORHEXIDINE GLUCONATE 0.12 % 15ML UDC (PERIDEX ORAL RINSE) SSP SCH ×2 (16:39→20:08)
[2020-09-26] MEDS: PANTOPRAZOLE 40MG TAB (PROTONIX) PO SCH (16:40)
[2020-09-26] MEDS: ASPIRIN 81MG ENTERIC TABLET PO SCH (16:40)
[2020-09-26] MEDS: SIMVASTATIN 40 MG TAB PO SCH (16:40)
[2020-09-26] MEDS: CitaloPRAM (CeleXA) 20 MG TAB PO SCH (16:41)
[2020-09-26] MEDS: lisinopriL 40 MG TAB PO SCH (16:41)
[2020-09-26] MEDS: atenoloL 50 MG TAB PO SCH (16:41)
[2020-09-26] MEDS: FLUTICASONE PROP 0.05% NASAL SPRAY 16 GM (FLONASE) SCH (16:42)
[2020-09-26] MEDS: LR 1,000 ML IV SCH (16:43)
[2020-09-26] MEDS ORDERED: MORPHINE 2 MG/ML 1ML VIAL (J2270) IV PRN (16:45)
[2020-09-26] MEDS: dexameTHASONE 20MG/5ML VIAL (J1100 PER 1MG) IV SCH ×2 (16:50→23:31)
[2020-09-26] MEDS: PERCOCET 5MG/325MG TAB PO PRN ×2 (17:04→23:45)
[2020-09-26] MEDS: HumaLOG INSULIN (NovoLOG) PER UNIT SC SCH (17:05)
[2020-09-26] MEDS: HEPARIN SOD (PORCINE) 5000UNITS/ML 1ML VIAL/SYRINGE SC SCH (20:03)
[2020-09-26] MEDS: LEVEMIR (INSULIN DETEMIR) 1 UNITS/0.01ML SC SCH (20:03)
[2020-09-26] MEDS ORDERED: HumaLOG INSULIN (NovoLOG) PER UNIT SC SCH (21:00)
[2020-09-27] VITALS (11 sets, daily range): BP systolic 106–143; BP diastolic 53–86; O2SAT 90–94
[2020-09-27] MEDS: LR 1,000 ML IV SCH ×2 (04:45→11:40)
[2020-09-27] MEDS: PERCOCET 5MG/325MG TAB PO PRN ×2 (04:46→09:02)
[2020-09-27 04:53] LABS: HEMATOCRIT 46.7 % (42.0-52.0); HEMOGLOBIN 15.3 g/dl (13.5-17.5); MEAN CORPUSCULAR HEMOGLOBIN 29.1 pg (27.0-33.0); MEAN CORPUSCULAR HGB CONC 32.8 g/dl (32.0-36.5); PLATELET COUNT, AUTOMATED 201 10^3/uL (150-450); RED BLOOD COUNT 5.25 10^6/uL (4.30-6.10); WHITE BLOOD COUNT 10.2 10^3/uL (4.0-10.0)
[2020-09-27 05:27] LABS: ALBUMIN 3.6 GM/DL (3.2-5.2); BILIRUBIN,TOTAL 0.7 MG/DL (0.2-1.0); CALCIUM LEVEL 8.9 MG/DL (8.8-10.2); CREATININE FOR GFR 1.39 MG/DL (0.70-1.30); GLOMERULAR FILTRATION RATE 53.5 (>42); POTASSIUM SERUM 5.1 MEQ/L (3.5-5.1); TOTAL PROTEIN 7.2 GM/DL (6.4-8.2)
[2020-09-27] MEDS: dexameTHASONE 20MG/5ML VIAL (J1100 PER 1MG) IV SCH (08:00)
[2020-09-27] MEDS: HEPARIN SOD (PORCINE) 5000UNITS/ML 1ML VIAL/SYRINGE SC SCH (09:01)
[2020-09-27] MEDS: HumaLOG INSULIN (NovoLOG) PER UNIT SC SCH ×2 (09:01→11:52)
[2020-09-27] MEDS: CHLORHEXIDINE GLUCONATE 0.12 % 15ML UDC (PERIDEX ORAL RINSE) SSP SCH (09:01)
[2020-09-27] MEDS: CitaloPRAM (CeleXA) 20 MG TAB PO SCH (09:02)
[2020-09-27] MEDS: lisinopriL 40 MG TAB PO SCH (09:03)
[2020-09-27] MEDS: PANTOPRAZOLE 40MG TAB (PROTONIX) PO SCH (09:03)
[2020-09-27] MEDS: SIMVASTATIN 40 MG TAB PO SCH (09:03)
[2020-09-27] MEDS: ASPIRIN 81MG ENTERIC TABLET PO SCH (09:03)
[2020-09-27] MEDS: atenoloL 50 MG TAB PO SCH (09:03)
[2020-09-27] MEDS: LEVEMIR (INSULIN DETEMIR) 1 UNITS/0.01ML SC SCH (09:04)
[2020-09-27] MEDS: FLUTICASONE PROP 0.05% NASAL SPRAY 16 GM (FLONASE) SCH (09:04)
[2020-09-27] MEDS ORDERED: ACET1TAB55 PO (10:27)
[2020-09-27] MEDS ORDERED: PERCOCET PO (10:27)
[2020-09-27] MEDS ORDERED: PERI12LIQ SSP (10:27)
--- NOTE | 2020-09-27 13:47 | DS.PDOC ---
Discharge Summary General Date of Admission 09/26/20 Date of Discharge 09/27/20 Discharge Summary PROCEDURES PERFORMED DURING STAY: [None]. ADMITTING DIAGNOSES: Tongue carcinoma Hyperlipidemia Hypertension Diabetes mellitus DISCHARGE DIAGNOSES: Tongue carcinoma Hyperlipidemia Hypertension Diabetes mellitus COMPLICATIONS/CHIEF COMPLAINT: Left Oral Tongue Carcinoma. HISTORY OF PRESENT ILLNESS: Patient is 70 years old male with past history of hyperlipidemia, hypertension, diabetes type 2, acid reflux, rheumatoid arthritis, ankylosing spondylitis, chronic back pain presented to the hospital for 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 Patient tolerates procedure well. He denied fever, chills, nausea, vomiting, diarrhea or dysuria. HOSPITAL COURSE: During hospital stay following issue addressed (1) Tongue carcinoma Status post surgery Pain management Decadron IV ENT follows him (2) Hyperlipidemia Continue statin (3) Hypertension Continue home cardioprotective medication Blood pressure under control (4) Diabetes mellitus Detemir twice a day Insulin sliding scale DISCHARGE MEDICATIONS: Please see below. ALLERGIES: Please see below. PHYSICAL EXAMINATION ON DISCHARGE: VITAL SIGNS: Please see below. Physical Examination General Exam: Positive: Alert, Cooperative Eye Exam: Positive: PERRLA ENT Exam: Positive: Pharynx Normal, Other ENT (drainage in place , 30 cc serosanguineous discharge) Neck Exam: Positive: Supple; Negative: JVD Chest Exam: Positive: Clear to auscultation Heart Exam: Positive: Rate Normal Telemetry: Positive: No significant arrhythmia Abdomen Exam: Positive: Normal bowel sounds Extremity Exam: Negative: Clubbing, Cyanosis Skin Exam: Positive: Nl turgor and temperature Neuro Exam: Positive: Strength at 5/5 X4 ext Psych Exam: Positive: Mental status NL LABORATORY DATA: Please see below. PROGNOSIS: fair ACTIVITY: [As tolerated]. DIET: Cardiac ITEMS TO FOLLOWUP ON ON OUTPATIENT: Follow-up with ENT in 2-3 days DISCHARGE CONDITION: [Stable]. TIME SPENT ON DISCHARGE: Greater than 20 minutes. Vital Signs/I&Os Vital Signs Date Time Temp Pulse Resp B/P (MAP) Pulse Ox O2 Delivery O2 Flow Rate FiO2 09/27/20 12:00 98.2 72 18 106/53 (70) 94 Nasal Cannula 2.0 I&O- Last 24 Hours up to 6 AM 09/27/20 06:00 Intake Total 3415 ml Output Total 2123 ml Balance 1292 ml Laboratory Data Labs 24H Laboratory Tests 2 09/26/20 16:57: Bedside Glucose (Misc Panel) 194H 09/26/20 19:25: Bedside Glucose (Misc Panel) 192H 09/27/20 04:30: Nucleated Red Blood Cells % (auto) 0.0, Anion Gap 5L, Glomerular Filtration Rate 53.5, Calcium Level 8.9, Total Bilirubin 0.7#, Aspartate Amino Transf (AST/SGOT) 17, Alanine Aminotransferase (ALT/SGPT) 24, Alkaline Phosphatase 70, Total Protein 7.2, Albumin 3.6, Albumin/Globulin Ratio 1.0 09/27/20 08:45: Bedside Glucose (Misc Panel) 265H 09/27/20 11:38: Bedside Glucose (Misc Panel) 266H CBC/BMP Laboratory Tests 09/27/20 04:30 FSBS Laboratory Tests Test 09/26/20 16:57 09/26/20 19:25 09/27/20 08:45 09/27/20 11:38 Range/Units Bedside Glucose (Misc Panel) 194 192 265 266 83-110 MG/DL Discharge Medications Scheduled Aspirin (Ecotrin) 81 Mg Tablet.dr, 81 MG PO DAILY, (Reported) Atenolol (Atenolol) 100 Mg Tab, 100 MG PO DAILY, (Reported) Chlorhexidine Gluconate (Chlorhexidine Gluconate) 473 Ml Mouthwash, 15 ML SSP TID Citalopram Hydrobromide (Citalopram HBr) 20 Mg Tab, 20 MG PO DAILY, (Reported) Empagliflozin (Jardiance) 10 Mg Tablet, Unknown Dose PO DAILY, (Reported) Fluticasone Propionate (Fluticasone Propionate) 16 Gm [place].susp, 1 SPRAY NA DAILY, (Reported) Gabapentin (Gabapentin) 300 Mg Capsule, 300 MG PO TID, (Reported) Hydrochlorothiazide (Hydrochlorothiazide) 25 Mg Tablet, 25 MG PO DAILY, (Reported) Insulin Glargine (Lantus) 100 Unit/1 Ml Vial, 64 UNITS SC QHS, (Reported) Insulin Human Lispro (Novolog) 100 U/Ml Inj, 20 UNITS SC AC, (Reported) Lisinopril (Lisinopril) 40 Mg Tablet, 40 MG PO DAILY, (Reported) Metformin HCl (Metformin HCl ER) 750 Mg Tab.er.24h, 750 MG PO BID, (Reported) Pantoprazole Sodium (Pantoprazole Sodium) 40 Mg Tab, 40 MG PO DAILY, (Reported) Simvastatin (Zocor) 80 Mg Tablet, 80 MG PO DAILY, (Reported) Scheduled PRN Acetaminophen (Acetaminophen) 325 Mg Tablet, 650 MG PO Q4H PRN for MILD PAIN OR FEVER Oxycodone/Acetaminophen (Oxycodone-Acetaminophen 5-325) 1 Each Tablet, 2 TAB PO Q4HP PRN for MODERATE/SEVERE PAIN (PS 5-10) Allergies Coded Allergies: atorvastatin (Verified Adverse Reaction, Unknown, sore muscles, 09/24/20) ISIDORO LEE DO Sep 27, 2020 13:47
--- NOTE | 2020-10-30 10:16 | RO ---
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 PROCEDURES PERFORMED: 1. Partial left glossectomy of lateral oral tongue. 2. Left supraomohyoid neck dissection. SURGEON: Nba Fields MD ASSISTANTS: Michael Jones MD and Raji Nicole PA-C ANESTHESIA: General. CLINICAL PREAMBLE: This is a 70-year-old man who presented to the office with history of leukoplakia of the left lower tongue. Biopsy of the left lateral oral tongue done approximately a month ago showed evidence of invasive squamous cell carcinoma. He has consulted with radiation oncology. At this time the patient wished surgical management of his left lateral oral tongue squamous cell carcinoma. Discussion of the risks and benefits of the surgical procedure had been carried out. The patient understood and consented to the procedure. DESCRIPTION OF PROCEDURE: The patient was identified in preholding and brought to the operating room in satisfactory condition. In the supine position on the operating table, the patient received general anesthesia followed by nasotracheal intubation without incident. The patient was prepped and draped in usual fashion for the procedure to perform left partial glossectomy first. The oral cavity was retracted open. The tongue was retracted rightward to expose the left lateral oral tongue. Initial excision measuring 4 cm x 4 cm x 1.5 cm was outlined to include the margin of the left lateral oral tongue tumor site. This was excised with 1 cm margin in each direction as well as depth. One suture indicated posterior margin, two sutures indicated superior margin. Intraoperative frozen sections were sent. The report of the frozen section indicated foci of tumor along the inferior margin. Therefore, additional 0.5 cm inferior margin was obtained. One suture indicating posterior margin and two sutures indicating superior margin. Hemostasis was achieved. Closure was achieved by using Vicryl suture done in horizontal mattress fashion. Attention was turned to performing left supraomohyoid neck dissection. The left neck was prepped and draped in usual fashion for the procedure. A left lateral neck incision was outlined approximately 2 finger's breadth below the inferior border of the left mandible. Incision was made through the skin and subcutaneous tissue and platysma. Subplatysmal flap was then elevated superiorly at the angle of the mandible and inferiorly down to the level of the omohyoid muscle. The anterior border of the sternocleidomastoid muscle was identified and dissected. The belly of the omohyoid muscle was identified and dissected off of the underlying fibrofatty tissue. The fibrofatty tissue was also mobilized out from the strap muscle layer. The entire fibrofatty tissue was mobilized superiorly toward the level II and III. At this time the dissection was carried out to isolate the left submandibular gland. The left retrofacial vessels were identified and ligated. Mylohyoid muscle was identified and retracted anteriorly. I identified Mohsen's duct as well as lingual and hypoglossal nerves. The nerves were carefully dissected and preserved. The contents of the left neck including level I, II and III were excised en bloc. The left submandibular gland was also excised as part of the left neck dissection as well. Hemostasis was achieved using bipolar electrocautery. FIONA flat #10 drain was placed. The skin incision was then closed in two layers. Deep layer was closed using 3-0 Vicryl and skin closure achieved using atif. At the end of the procedure sponge and instrument counts were correct. No complications noted. Estimated blood loss was approximately 50 mL. General anesthesia was reversed and the patient was extubated and brought to recovery in satisfactory condition. My medical assistant float Dr. Michael Jones was present throughout the entire case and necessary in retraction and manipulation of the soft tissues in order to allow the safe performance of the entire procedure. MYNOR
== END 2020-09-27 13:30 | disposition home or self-care (01) ==
LOC: M SDC 06:17 → M PCU 06:18 → M SDC 15:18 → M PCU 15:18 → M SDC 09-27 13:30
PROVIDERS: ADMIT Internal Medicine; ATTEND Internal Medicine
DX: C02.9 Malignant neoplasm of tongue, unspecified (principal); I10 Essential (primary) hypertension; E11.9 Type 2 diabetes mellitus without complications; G47.33 Obstructive sleep apnea (adult) (pediatric); E78.5 Hyperlipidemia, unspecified; K21.9 Gastro-esophageal reflux disease without esophagitis; Z87.891 Personal history of nicotine dependence; Z88.8 Allergy status to other drugs, medicaments and biological substances; Z79.4 Long term (current) use of insulin
CPT/HCPCS: 36415; 41135; 80053; 85027; 88305; 88331; 88332; 88342; 92526; 92610; 96361; 96365; 96366; 96372; 96375; G0378; J0330; J0697; J1100; J1170; J1644; J2250; J2270; J2405; J3010

== ENCOUNTER → 2020-11-26 | Outpatient (CLI) | payer MEDICARE, OTHER ==
[~2020-11-26] MED LIST changes: +ACET1TAB55 PO; +PERCOCET PO; +PERI12LIQ SSP
--- NOTE | 2020-11-29 04:10 | ECWPNPC ---
PATIENT NAME: TYE CLAUDIO : 1950 GENDER: MALE VISIT DATE: 11/26/2020 DISCHARGE DATE: 11/26/20 1213 VISIT LOCKED DATE TIME: PHYSICIAN: LULY JOHNSON RESOURCE: LULY JOHNSON REASON FOR APPOINTMENT 1. MRI F/U HISTORY OF PRESENT ILLNESS PAIN CENTER INTAKE QUESTIONS: 70-YEAR-OLD MALE IN FOR CHRONIC PAIN FOLLOW-UP. PATIENT HAD A RECENT MRI WHICH WILL BE REVIEWED WITH PATIENT TODAY. HE RATES HIS PAIN CURRENTLY AT A 7 OUT OF 10 AND DESCRIBES IT CONTINUOUS. PATIENT HAS HAD RF PROCEDURES IN THE PAST WITH GOOD RESULTS AND WE WILL DISCUSS REPEAT PROCEDURES TODAY. GENERAL: -. FALL RISK SCREENING: SCREENING YES ISI MESSINA. PAIN SCREENING: PATIENT HAS A COMPLAINT OF ACUTE OR CHRONIC PAIN :YES LOCATION OF PAIN:BACK INTENSITY OF PAIN (SCALE OF 1 TO 10):7 WHAT DOES YOUR PAIN FEEL LIKE:CONTINOUS PAIN IS INCREASED BY:ACTIVITIES NURSING NOTE: -. CURRENT MEDICATIONS TAKING ASPIRIN 81 81 MG TABLET CHEWABLE 1 TABLET ORALLY ONCE A DAY TAKING ATENOLOL 100 MG TABLET 1 TABLET ORALLY ONCE A DAY TAKING CITALOPRAM HYDROBROMIDE 20 MG TABLET 1 TABLET ORALLY ONCE A DAY TAKING FLONASE 50 MCG/DOSE INHALER 1 SPRAY IN EACH NOSTRIL NASALLY ONCE A DAILY-TAKES NEEDED TAKING HYDROCHLOROTHIAZIDE 25 MG TABLET 1 TABLET IN THE MORNING ORALLY ONCE A DAY TAKING NOVOLOG FLEXPEN 100 UNIT/ML SOLUTION PEN-INJECTOR SLIDING SCALE SUBCUTANEOUS TAKING LANTUS SOLOSTAR 100 UNIT/ML SOLUTION 60 UNITS SUBCUTANEOUS DAILY TAKING LISINOPRIL 40 MG TABLET 1 TABLET ORALLY ONCE A DAY TAKING PANTOPRAZOLE SODIUM 40 MG TABLET DELAYED RELEASE 1 TABLET ORALLY ONCE A DAY TAKING CRESTOR 20 MG TABLET 1 TABLET ORALLY ONCE A DAY TAKING METFORMIN HCL 850 MG TABLET 1 TABLET WITH MEALS ORALLY TWICE A DAY TAKING IBUPROFEN 600 MG TABLET 1 TABLET WITH FOOD OR MILK NEEDED ORALLY THREE TIMES A DAY TAKING ACETAMINOPHEN 325 MG CAPSULE 1 CAPSULE NEEDED ORALLY EVERY 4 HRS TAKING EMPAGLIFLOZIN 25 MG TABLET 1 TABLET ORALLY ONCE A DAY TAKING GABAPENTIN 600 MG TABLET 1 TABLET ORALLY Q8H TID TAKING VIT D-VIT E-SAFFLOWER OIL 1 CAP DAILY TAKING MULTI FOR HIM 50+ 1 CAP DAILY TAKING MIRALAX - PACKET 1 PACKET MIXED WITH 8 OUNCES OF FLUID ORALLY ONCE A DAY TAKING TIZANIDINE HCL 2 MG TABLET TAKE TWO TABLETS BY MOUTH AT BEDTIME ORAL TAKING CICLOPIROX 8 % SOLUTION 1 APPLICATION EXTERNALLY ONCE A DAY TO TOENAILS AT NIGHT TAKING CICLOPIROX 0.77 % GEL 1 APPLICATION EXTERNALLY TWICE A DAY TO FEET AND BACK RASH (USE LOTRIMIN ULTRA TO FEET MID-MORNING) MEDICATION LIST REVIEWED AND RECONCILED WITH THE PATIENT PAST MEDICAL HISTORY HYPERLIPIDEMIA HYPERTENSION DIABETES MELLITUS TYPE 2 ACID REFLUX ARTHRITIS ANKYLOSIS SPONDYLITIS/ ARTHRITIS HEALTH SPEC - SYRACUSE BACK PAIN TOUNGE CA ALLERGIES LIPITOR: MUSCLE PAIN - SIDE EFFECTS SURGICAL HISTORY LEFT KNEE SURGERY RIGHT FOOT BUNIONECTOMY TOUNGE CANCER TAKEN CARE OF BY DR. DENNIS 08/2020 HOSPITALIZATION/MAJOR DIAGNOSTIC PROCEDURE KNEE SURG DEHYDRATION AT [facility] 09/2019 REVIEW OF SYSTEMS CONSTITUTIONAL: ANY RECENT FEVER NO . CHILLS NO . WEIGHT CHANGE OF UNKNOWN REASONS NO . GASTROENTEROLOGY: NEW UNEXPLAINABLE CHANGES IN BOWEL CONTROL NO . CONSTIPATION NO . GENITOURINARY: ANY NEW CHANGE IN BLADDER CONTROL? NO . NEUROLOGY: NEW ONSET DIZZINESS OR NEUROLOGICAL CHANGES NOT MENTIONED NO . NEW NUMBNESS OR PAIN PATTERNS NOT MENTIONED AND PERTINENT TO TODAY'S VISIT NO . CARDIOLOGY: NEW CHEST PRESSURE NO . PATIENT DENIES NO . RESPIRATORY: UNEXPLAINABLE COUGH NO . NEW SHORTNESS OF BREATH NO . VITAL SIGNS WT 249 LBS, HT 70 IN, BMI 35.72 INDEX, BP 133/60 MM HG, HR 61 /MIN, RR 18 /MIN, TEMP 97.9 F, OXYGEN SAT % 97%, SAFE IN ENV? (Y/N) YES, NA INITIALS TN 11:14, REVIEWED BY: KG. EXAMINATION GENERAL EXAMINATION: GENERALNO ACUTE DISTRESS, WELL NOURISHED AND HYDRATED. PSYCHAPPROPRIATE MOOD AND AFFECT . LUNGS:CLEAR TO AUSCULTATION BILATERALLY, NO WHEEZES, RHONCHI, RALES. HEART:NO MURMURS, REGULAR RATE AND RHYTHM. BACK:DENIES POINT TENDERNESS ALONG LUMBAR SPINE . ASSESSMENTS SPONDYLOSIS OF LUMBOSACRAL REGION WITHOUT MYELOPATHY OR RADICULOPATHY - M47.817 (PRIMARY), RISK: (NULL) TREATMENT SPONDYLOSIS OF LUMBOSACRAL REGION WITHOUT MYELOPATHY OR RADICULOPATHY NOTES: 70-YEAR-OLD MALE IN FOR CHRONIC PAIN FOLLOW-UP. GIVEN PRESENTING SYMPTOMS AND RESULTS OF MRI RECOMMENDED DIAGNOSTIC FACET BLOCK #2 LEFT SIDE L4-L5 L5-S1 WITH POST PROCEDURAL FOLLOW-UP. PATIENT HAS EXPRESSED UNDERSTANDING OF AND WAS IN AGREEMENT WITH TREATMENT PLAN. GIVEN TIME TO ASK QUESTIONS AND EXPRESS CONCERNS. PROCEDURE CODES FA211 ESTABILISHED PATIENT [facility] CHARGE DISPOSITION & COMMUNICATION FOLLOW UP POST PROCEDURE (REASON: LEFT DIAGNOSTIC LUMBAR FACET BLOCK #2 L4-L5,L5-S1) ELECTRONICALLY SIGNED BY MARIXA SANDRA ON 11/28/2020 AT 08:30 AM EDT DISCLAIMER : THIS IS A VISIT SUMMARY EXTRACTED FROM THE [employer] CHART. IT IS NOT A COPY OF THE [employer] PROGRESS NOTE. MYLAD
== END ==
LOC: M PAIN 11:15
PROVIDERS: ATTEND Family Medicine
DX: M47.817 Spondylosis without myelopathy or radiculopathy, lumbosacral region (principal); E78.5 Hyperlipidemia, unspecified; I10 Essential (primary) hypertension; E11.9 Type 2 diabetes mellitus without complications; K21.9 Gastro-esophageal reflux disease without esophagitis; M45.9 Ankylosing spondylitis of unspecified sites in spine; Z88.8 Allergy status to other drugs, medicaments and biological substances; Z79.82 Long term (current) use of aspirin; Z79.4 Long term (current) use of insulin; Z79.899 Other long term (current) 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

== ENCOUNTER → 2020-12-04 | Outpatient (CLI) | payer MEDICARE, OTHER | LOC: M LABSMTC 11:51 | PROVIDERS: ATTEND Anesthesiology | DX: Z01.812 Encounter for preprocedural laboratory examination (principal) ==

== ENCOUNTER → 2020-12-09 | Outpatient (CLI) | payer MEDICARE, OTHER ==
[~2020-12-09] MED LIST changes: +BUPIVACAINE HCL 0.25% 30ML VIAL As Ordered ONE; +ISOVUE-M 300 61% 15ML VIAL As Ordered ONE; +LIDOCAINE 1% SDV 30ML VIAL As Ordered ONE
--- NOTE | 2020-12-09 10:17 | REP ---
INDICATION: LEFT DIAGNOSTIC LUMBAR FACET BLOCK. COMPARISON: None. TECHNIQUE: Two C-arm views lower lumbar spine. FINDINGS: Harriman are seen at the left lower lumbar facet joints. Small amount of contrast is injected. IMPRESSION: 36 seconds fluoroscopy time utilized. <Electronically signed by Ashu Nava > 12/09/20 1014
--- NOTE | 2020-12-11 08:16 | ECWPNPC ---
PATIENT NAME: TYE CLAUDIO : 1950 GENDER: MALE VISIT DATE: 12/09/2020 DISCHARGE DATE: 12/09/20950 VISIT LOCKED DATE TIME: PHYSICIAN: GARRETT MEDLEY MD RESOURCE: GARRETT MEDLEY MD REASON FOR APPOINTMENT 1. LEFT DIAGNOSTIC LUMBAR FACET BLOCK #2 L4-L5,L5-S1 HISTORY OF PRESENT ILLNESS GENERAL: -. FALL RISK SCREENING: SCREENING : NO FALLS REPORTED IN THE LAST YEAR. PAIN SCREENING: PATIENT HAS A COMPLAINT OF ACUTE OR CHRONIC PAIN :YES LOCATION OF PAIN:LOW BACK, LEG(S) INTENSITY OF PAIN (SCALE OF 1 TO 10):8 WHAT DOES YOUR PAIN FEEL LIKE:ACHING, STABBING DURATION:INTERMITTENT PAIN IS INCREASED BY:ACTIVITIES PAIN IS DECREASED BY:USE OF PAIN MEDICATIONS NURSING NOTE: -. PAIN CENTER INTAKE QUESTIONS: DO YOU HAVE A HISTORY OF MRSA? :NO DO YOU TAKE A BLOOD THINNERS? :NO DO YOU HAVE ANY BLEEDING DISORDERS? :NO ANY NEW NUMBNESS OR WEAKNESS IN YOUR LEGS OR ARMS? :NO ANY PACEMAKER,DEFIBRILLATOR, OR DORSAL COLUMN STIMULATOR? :NO DO YOU HAVE ANY RASHES OR OPEN SORES? :NO ARE YOU ALLERGIC TO IV DYE? :NO ARE YOU DIABETIC? :YES FSBS 138 THIS AM ANY NEW PROBLEMS WITH YOUR MEDICATIONS? :NO HAVE YOU RECEIVED A VACCINE IN THE PAST 30 DAYS? :NO DO YOU PLAN TO RECEIVE A VACCINE IN THE NEXT 21 DAYS? :NO DO YOU TAKE ANY IMMUNOSUPPRESSIVE MEDICATIONS? :YES REMICADE MONTHLY LAST DOSE 5 WEEKS AGO, NEXT DOSE DUE December ANY HISTORY OF SEIZURES? :NO ANY HISTORY OF CARDIAC ISSUES OR EVENTS? :NO DO YOU HAVE ANY KIDNEY OR LIVER DISEASE? :NO DO YOU HAVE SLEEP APNEA? :YES DO YOU WEAR A CPAP?YES ANY RECENT HEAD INJURY? :NO DO YOU HAVE ANY NEW INFECTIONS? :NO IS THERE A CHANCE YOU COULD BE ? :NO ARE YOU BREAST FEEDING? :NO WHEN DID YOU LAST EAT? : 12/08/202199 WHEN DID YOU LAST DRINK? : 12/08/202199 WHAT DID YOU LAST DRINK? : WATER NAME OF PERSON DRIVING YOU HOME? : DO YOU HAVE ANY OTHER QUESTIONS OR CONCERNS? : - CURRENT MEDICATIONS TAKING ASPIRIN 81 81 MG TABLET CHEWABLE 1 TABLET ORALLY ONCE A DAY, NOTES: 12/08/20 TAKING ATENOLOL 100 MG TABLET 1 TABLET ORALLY ONCE A DAY, NOTES: 12/08/20 TAKING CITALOPRAM HYDROBROMIDE 20 MG TABLET 1 TABLET ORALLY ONCE A DAY TAKING FLONASE 50 MCG/DOSE INHALER 1 SPRAY IN EACH NOSTRIL NASALLY ONCE A DAILY-TAKES NEEDED TAKING HYDROCHLOROTHIAZIDE 25 MG TABLET 1 TABLET IN THE MORNING ORALLY ONCE A DAY, NOTES: 12/08/20 TAKING NOVOLOG FLEXPEN 100 UNIT/ML SOLUTION PEN-INJECTOR SLIDING SCALE SUBCUTANEOUS , NOTES: 12/08/20 TAKING LANTUS SOLOSTAR 100 UNIT/ML SOLUTION 60 UNITS SUBCUTANEOUS DAILY, NOTES: 12/08/20 TAKING LISINOPRIL 40 MG TABLET 1 TABLET ORALLY ONCE A DAY, NOTES: 12/08/20 TAKING PANTOPRAZOLE SODIUM 40 MG TABLET DELAYED RELEASE 1 TABLET ORALLY ONCE A DAY TAKING CRESTOR 20 MG TABLET 1 TABLET ORALLY ONCE A DAY TAKING METFORMIN HCL 850 MG TABLET 1 TABLET WITH MEALS ORALLY TWICE A DAY, NOTES: 12/08/20 TAKING IBUPROFEN 600 MG TABLET 1 TABLET WITH FOOD OR MILK NEEDED ORALLY THREE TIMES A DAY TAKING ACETAMINOPHEN 325 MG CAPSULE 1 CAPSULE NEEDED ORALLY EVERY 4 HRS TAKING EMPAGLIFLOZIN 25 MG TABLET 1 TABLET ORALLY ONCE A DAY, NOTES: 12/08/20 TAKING GABAPENTIN 600 MG TABLET 1 TABLET ORALLY Q8H TID TAKING VIT D-VIT E-SAFFLOWER OIL 1 CAP DAILY TAKING MULTI FOR HIM 50+ 1 CAP DAILY TAKING MIRALAX - PACKET 1 PACKET MIXED WITH 8 OUNCES OF FLUID ORALLY ONCE A DAY TAKING TIZANIDINE HCL 2 MG TABLET TAKE TWO TABLETS BY MOUTH AT BEDTIME ORAL TAKING CICLOPIROX 8 % SOLUTION 1 APPLICATION EXTERNALLY ONCE A DAY TO TOENAILS AT NIGHT TAKING CICLOPIROX 0.77 % GEL 1 APPLICATION EXTERNALLY TWICE A DAY TO FEET AND BACK RASH (USE LOTRIMIN ULTRA TO FEET MID-MORNING) MEDICATION LIST REVIEWED AND RECONCILED WITH THE PATIENT PAST MEDICAL HISTORY HYPERLIPIDEMIA HYPERTENSION DIABETES MELLITUS TYPE 2 ACID REFLUX ARTHRITIS ANKYLOSIS SPONDYLITIS/ ARTHRITIS HEALTH SPEC - SYRACUSE BACK PAIN TOUNGE CA ALLERGIES LIPITOR: MUSCLE PAIN - SIDE EFFECTS SOCIAL HISTORY GENERAL: TOBACCO USE ARE YOU A:NONSMOKER LATEX QUESTIONNAIRE LATEX ALLERGY : HAVE YOU EVER DEVELOPED ANY TYPE OF REACTION AFTER HANDLING LATEX PRODUCTS SUCH RUBBER GLOVES, CONDOMS, DIAPHRAGMS, BALLOONS, SOCKS, OR UNDERWEAR?NO LATEX ALLERGY : HAVE YOU EVER DEVELOPED ANY TYPE OF REACTION DURING OR AFTER DENTAL APPOINTMENT, VAGINAL/RECTAL EXAMINATION, SURGICAL PROCEDURE, OR ANY OTHER EXPOSURE?NO DATE ASKED : 06/14/2020 LATEX RISK : HAVE YOU EVER HAD ANY DIFFICULTY BREATHING OR HIVES AFTER EATING OR HANDLING ANY FRUITS, OR VEGETABLES; SUCH KIWI, BANANAS, STONE FRUITS, OR CHESTNUTSNO LATEX RISK : DO YOU HAVE A PREVIOUS PERSONAL HISTORY OF MORE THAN NINE SURGERIES, SPINA BIFIDA, OR REPEATED CATHERIZATIONS? NO LATEX RISK : ARE YOU FREQUENTLY EXPOSED TO LATEX PRODUCTS IN YOUR OCCUPATION?NO ALCOHOL SCREENING DID YOU HAVE A DRINK CONTAINING ALCOHOL IN THE PAST YEAR?YES HOW OFTEN DID YOU HAVE SIX OR MORE DRINKS ON ONE OCCASION IN THE PAST YEAR?NEVER (0 POINTS) HOW MANY DRINKS DID YOU HAVE ON A TYPICAL DAY WHEN YOU WERE DRINKING IN THE PAST YEAR?1 OR 2 (0 POINTS) HOW OFTEN DID YOU HAVE A DRINK CONTAINING ALCOHOL IN THE PAST YEAR?TWO TO FOUR TIMES A MONTH (2 POINTS) POINTS2 INTERPRETATIONNEGATIVE RECREATIONAL DRUG USE DRUG USE?NO CAFFEINE CAFFEINE USE?YES COFFEE DAILY PENTECOSTALISM [id number] PENTECOSTAL LANGUAGE LANGUAGES SPOKEN:MALTESE LEARNING BARRIERS / SPECIAL NEEDS BARRIERS TO LEARNING?NO HEARING IMPAIRED?NO VISION IMPAIRED?YES COGNITIVELY IMPAIRED?NO :CORRECTIVE LENSES READINESS TO LEARN?YES LEARNING PREFERENCES?YES :DEMONSTRATION/VERBAL INSTRUCTION LEARNING CAPABILITIES PRESENT?YES EMOTIONAL BARRIERS?NO SPECIAL DEVICES?NO OIL HEATER INSTALLER NEEDED?NO DOMESTIC VIOLENCE DO YOU FEEL SAFE IN YOUR ENVIRONMENT?YES PATIENT DESCRIBES PAIN : ACHING, IT COMES AND GOES, SHARP, THROBBING, SHOOTING, FROM 0-10, WHAT LEVEL IS YOUR PAIN TODAY? 7, PRECIPITATING FACTORS ACTIVITY, WALKING, ALLEVIATING FACTORS REST, MEDICATIONS. - PFS REFERRAL NEEDED?NO CLERGY REFERRAL NEEDED?NO PUBLIC HEALTH REFERRAL NEEDED?NO WAS THE PROVIDER NOTIFIED OF ANY PERTINENT INFO? N/A HAS THE PATIENT BEEN EDUCATED REGARDING HIS/HER PLAN OF CARE?YES HAS THE PATIENT BEEN EDUCATED REGARDING PAIN, THE RISK FOR PAIN, THE IMPORTANCE OF EFFECTIVE PAIN MANAGEMENT, AND THE PAIN ASSESSMENT PROCESS?YES ADVANCE DIRECTIVE ADVANCE DIRECTIVE DISCUSSED WITH PATIENT:YES PT DOES NOT HAVE ANY ADVANCED DIRECTIVES AND HE DECLINES INFORMATION ON HCP AT THIS TIME, STATES THAT HE HAS THE INFORMATION AT HOME. ASSISTANCE OFFERED IN COMPLETING HCP IF NEEDED. VITAL SIGNS WT 245.0 LBS, HT 70 IN, BMI 35.15 INDEX, BP 133/74 MM HG, HR 56 /MIN, RR 18 /MIN, TEMP 97.5 F, OXYGEN SAT % 98%, SAFE IN ENV? (Y/N) YES, NA INITIALS AW 0826, REVIEWED BY: HUMERA. EXAMINATION GENERAL EXAMINATION: A HISTORY AND PHYSICAL EXAM ON THE PATIENT WAS DONE ON 11/26/2020 (DATE OF ORIGINAL ASSESSMENT) IN PREPARATION OF SURGERY/PROCEDURE. I HAVE NOW REASSESSED THIS PATIENT'S HEALTH STATUS AND PERFORMED AN UPDATED EXAM TODAY. ALL CHANGES IN THE PATIENT'S HISTORY, PHYSICAL EXAM, PRE-EXISTING CONDITONS, AND INDICATIONS/CONTRAINDICATIONS TO THE PLANNED PROCEDURE AND ANESTHESIA ARE DOCUMENTED AND EVALUATED BELOW. I ATTEST TO THE ADEQUACY AND APPROPRIATENESS OF MY ASSESSMENT, AND CONFIRM THE NECESSITY FOR THE PLANNED PROCEDURE. THE PATIENT IS ALERT, ORIENTED TIMES THREE AND COOPERATIVE. LUNGS ARE CLEAR TO AUSCULTATION. HEART SHOWS REGULAR RHYTHM, NO MURMURS AND NO GALLOPS. ASSESSMENTS SPONDYLOSIS OF LUMBAR REGION WITHOUT MYELOPATHY OR RADICULOPATHY - M47.816 (PRIMARY) SPONDYLOSIS OF LUMBOSACRAL REGION WITHOUT MYELOPATHY OR RADICULOPATHY - M47.817 TREATMENT SPONDYLOSIS OF LUMBAR REGION WITHOUT MYELOPATHY OR RADICULOPATHY SMC FACET BLOCK (PAIN)[id number] COMPLETION OF PROCEDURAL VISIT WHEN MEETS CRITERIASYANA SNEED Racquel 12/09/2020 9:49:08 AM > CRITERIA MET. OTHERS NOTES: PAT DONE 12/05/20 Kimani MINOR MACHINE JOINT CUTTER. PROCEDURES PAIN NURSING RECORD PROCEDURE IN ROOM 0906, PHYSICIAN IN ROOM 0922, START 0926, FINISH 0931, PHYSICIAN OUT OF ROOM 0932, OUT OF ROOM 0937, ECG OTHER SINUS STEFFANY, PATIENT SHIELDED YES, SAFETY STRAP YES, PREP CHLOROPREP Delvin TAPIA RN, DRESSING TEGADERM DR. MEDLEY LOC: ANISHAANA GREEN Racquel 12/09/2020 9:26:37 AM > , 1. ALERT, ORIENTED RESP: ANISHAPETREANA Racquel 12/09/2020 9:26:43 AM > , 1. REGULAR, NO DYSPNEA COLOR: ANISHAPETERANA Racquel 12/09/2020 9:26:49 AM > , 1. PINK SKIN: ANISHAPETERANA Racquel 12/09/2020 9:26:55 AM > , 1. WARM, DRY POSITION: REGINAANA L 12/09/2020 9:26:58 AM > , 1. PRONE VITALS: REGINAANA Clement 12/09/2020 9:09:23 AM > 145/74, 53, 16, 96% ANA TAPIA 12/09/2020 9:12:16 AM > 148/79, 52, 16, 97% ANA TAPIA 12/09/2020 9:27:08 AM > 166/109, 52, 16, 96% ANA TAPIA 12/09/2020 9:27:56 AM > 169/107, 52, 16, 96% ANA TAPIA 12/09/2020 9:33:24 AM > 171/112, 52, 16, 96% ,SYLANA GREEN 12/09/2020 9:44:24 AM > 146/80, 58, 16, 97% COMPLETION OF PROCEDURE APPOINTMENT: POST PAIN 0, DRESSING SITE DRY AND INTACT, IV N/A, GAIT STEADY, TEACHING COMPLETED, PATIENT ACKNOWLEDGES UNDERSTANDING YES, PROCEDURE APPOINTMENT COMPLETED AT 0949 BY: Delvin TAPIA RN PN LUMBAR FACET BLOCK DIAGNOSTIC PRE PROCEDURE DIAGNOSIS LUMBAR SPONDYLOSIS, LUMBOSACRAL SPONDYLOSIS POST PROCEDURE DIAGNOSIS LUMBAR SPONDYLOSIS, LUMBOSACRAL SPONDYLOSIS PROCEDURE LEFT L4-L5 AND LEFT L5-S1 FACET BLOCK DIAGNOSTIC NUMBER [address] GARRETT MEDLEY FINANCIAL PLANNING ADVISER NONE ANESTHESIA LOCAL PRE PROCEDURE NOTE THE PATIENT WITH HISTORY OF CHRONIC LOW BACK PAIN. I EVALUATED THE PATIENT AND REVIEWED THE CHART. I WENT OVER THE RISKS, ALTERNATIVES, AND BENEFITS ASSOCIATED WITH THIS PROCEDURE. THE PATIENT WOULD LIKE TO PROCEED AND GAVE CONSENT TO PERFORM THE PROCEDURE. AGREED WITH THE PATIENT, WE ARE DOING THIS PROCEDURE TO DETERMINE IF THE PATIENT IS A CANDIDATE FOR A RADIOFREQUENCY ABLATION OF THE FACETS JOINTS. THE PATIENT DENIES UNEXPLAINABLE WEIGHT LOSS, FEVER, CHILLS, OR NEW CHANGES IN URINARY OR BOWEL CONTROL. THE PATIENT IS COVID-19 NEGATIVE DESCRIPTION OF PROCEDURE THE PATIENT WAS BROUGHT TO THE PROCEDURE ROOM AND PLACED IN THE PRONE POSITION. THE LUMBOSACRAL AREA WAS CLEANED WITH CHLORAPREP SOLUTION AND DRAPED ASEPTICALLY. THE PROCEDURE WAS DONE UNDER STERILE CONDITIONS. A TIMEOUT WAS PERFORMED WHERE THE CONSENTED SITE WAS VERIFIED WITH EVERYONE IN THE ROOM. UNDER FLUOROSCOPIC GUIDANCE, TARGETS WERE SELECTED AT THE INTERSECTION OF THE LEFT TRANSVERSE PROCESS OF L4, L5 AND ALA OF S1 WITH ITS RESPECTIVE SUPERIOR ARTICULAR PROCESS WITH A TARGET OF THE MEDIAN BRANCHES OF L3, L4 AND THE DORSAL RAMI OF L5. I CONFIRMED AGAIN THE SITE OF TARGET. LIDOCAINE WAS USED TO NUMB THE SKIN AND THE SUBCUTANEOUS TISSUE BELOW IT. SPINAL NEEDLE, 22-GAUGE, WAS ADVANCED UNDER FLUOROSCOPIC GUIDANCE AND FOLLOWING PATIENT FEEDBACK UNTIL THE TARGETS WERE REACHED. POSITION OF THE NEEDLES WAS VERIFIED WITH AP AND LATERAL VIEWS. AFTER PROPER POSITION OF THE NEEDLES WAS ACHIEVED, ISOVUE-M DYE 30%, 0.1 ML, WAS INJECTED AT EACH SITE SHOWING ADEQUATE SPREAD OF THE DYE. THEN, A SOLUTION OF 0.4 ML OF BUPIVACAINE 0.25% WAS INJECTED AT EACH SITE. THE MEDICATIONS WERE VERIFIED WITH THE NURSE. THERE WAS NO EVIDENCE OF BLOOD, PARESTHESIA OR CEREBROSPINAL FLUID DURING THE PROCEDURE. THE PATIENT WAS SENT TO THE RECOVERY ROOM. THE PATIENT WAS MOVING THE EXTREMITIES AND DOING WELL. THERE WERE NO COMPLICATIONS DURING THE PROCEDURE. ESTIMATED BLOOD LOSS WAS LESS THAN 5 ML. FLUOROSCOPY TIME WAS 36 SECONDS POST PROCEDURE NOTE THE PATIENT WILL DOCUMENT THE PAIN LEVEL AND RESPONSE TO THIS PROCEDURE PER PAIN DIARY. THE PATIENT WILL BE SEEN IN A FOLLOW UP IN THE NEXT FEW WEEKS. FURTHER DETERMINATION FOR THE PATIENT'S CASE WILL BE DONE AT THE NEXT VISIT. INSTRUCTIONS WERE GIVEN, QUESTIONS WERE ANSWERED, AND THE PATIENT EXPRESSED UNDERSTANDING AND AGREED WITH THE PLAN. I, MELQUIADES GONCALVES, DOCUMENTED THE ABOVE INFORMATION ACTING A SCRIBE FOR DR. MEDLEY. I HAVE REVIEWED THE ABOVE DOCUMENT, WRITTEN BY MELQUIADES GONCALVES, STOCK WORKER, AND I VERIFY THAT IT IS ACCURATE PROCEDURE CODES 73809 INJ PARAVERT F JNT L/S 1 LEV, MODIFIERS: [place] 56593 INJ PARAVERT F JNT L/S 2 LEV, MODIFIERS: LT DISPOSITION & COMMUNICATION FOLLOW UP FOLLOW UP WITH PRISM MEASURER (REASON: POST LEFT DIAGNOSTIC LUMBAR FACET L4-L5, L5-S1) ELECTRONICALLY SIGNED BY GARRETT MEDLEY MD, MD ON 12/10/2020 AT 03:21 PM EDT DISCLAIMER : THIS IS A VISIT SUMMARY EXTRACTED FROM THE [employer] CHART. IT IS NOT A COPY OF THE [employer] PROGRESS NOTE. MYNOR
== END ==
LOC: M PAIN 08:30
PROVIDERS: ATTEND Anesthesiology
DX: M47.816 Spondylosis without myelopathy or radiculopathy, lumbar region (principal); M47.817 Spondylosis without myelopathy or radiculopathy, lumbosacral region; E78.5 Hyperlipidemia, unspecified; I10 Essential (primary) hypertension; E11.9 Type 2 diabetes mellitus without complications; K21.9 Gastro-esophageal reflux disease without esophagitis; M19.90 Unspecified osteoarthritis, unspecified site; M45.9 Ankylosing spondylitis of unspecified sites in spine; Z85.810 Personal history of malignant neoplasm of tongue; Z88.8 Allergy status to other drugs, medicaments and biological substances
CPT/HCPCS: 64493; 64494; Q9967

== ENCOUNTER → 2020-12-24 | Outpatient (CLI) | payer MEDICARE, OTHER ==
[~2020-12-24] MED LIST changes: -BUPIVACAINE HCL 0.25% 30ML VIAL As Ordered ONE; -ISOVUE-M 300 61% 15ML VIAL As Ordered ONE; -LIDOCAINE 1% SDV 30ML VIAL As Ordered ONE
--- NOTE | 2020-12-26 04:43 | ECWPNPC ---
PATIENT NAME: TYE CLAUDIO : 1950 GENDER: MALE VISIT DATE: 12/24/2020 DISCHARGE DATE: 12/24/20 1043 VISIT LOCKED DATE TIME: PHYSICIAN: LULY JOHNSON RESOURCE: LULY JOHNSON REASON FOR APPOINTMENT 1. POST LEFT DIAGNOSTIC LUMBAR FACET BLOCK #2 L4-L5,L5-S1 HISTORY OF PRESENT ILLNESS DEPRESSION SCREENING: PHQ-2 (2015 EDITION) LITTLE INTEREST OR PLEASURE IN DOING THINGS?NOT AT ALL FEELING DOWN, DEPRESSED, OR HOPELESS?NOT AT ALL TOTAL SCORE0 70-YEAR-OLD MALE IN FOR POST LEFT DIAGNOSTIC LUMBAR FACET BLOCK FOLLOW UP. HE RATES HIS PAIN PREPROCEDURE AT AN 8 OUT OF 10 AND POSTPROCEDURE AT A 0-4 OUT OF 10X5 HOURS. HE RATES HIS PAIN CURRENTLY AT AN 8 OUT OF 10 AND DESCRIBES IT ACHING, AND SHOOTING. GENERAL: -. FALL RISK SCREENING: SCREENING : NO FALLS REPORTED IN THE LAST YEAR. PAIN SCREENING: PATIENT HAS A COMPLAINT OF ACUTE OR CHRONIC PAIN :YES LOCATION OF PAIN:LOW BACK INTENSITY OF PAIN (SCALE OF 1 TO 10):8 WHAT DOES YOUR PAIN FEEL LIKE:ACHING, SHOOTING DURATION:CONTINOUS, CONSTANT, ALL DAY PAIN IS INCREASED BY:ACTIVITIES PAIN IS DECREASED BY:OTHERS RESTING NURSING NOTE: -. PAIN CENTER INTAKE QUESTIONS: DO YOU HAVE A HISTORY OF MRSA? :NO DO YOU TAKE A BLOOD THINNERS? :NO DO YOU HAVE ANY BLEEDING DISORDERS? :NO ANY NEW NUMBNESS OR WEAKNESS IN YOUR LEGS OR ARMS? :NO ANY PACEMAKER,DEFIBRILLATOR, OR DORSAL COLUMN STIMULATOR? :NO DO YOU HAVE ANY RASHES OR OPEN SORES? :NO ARE YOU ALLERGIC TO IV DYE? :NO ARE YOU DIABETIC? :YES ANY NEW PROBLEMS WITH YOUR MEDICATIONS? :NO HAVE YOU RECEIVED A VACCINE IN THE PAST 30 DAYS? :NO DO YOU PLAN TO RECEIVE A VACCINE IN THE NEXT 21 DAYS? :NO DO YOU NEED ANY PRESCRIPTION? :NO DO YOU TAKE ANY IMMUNOSUPPRESSIVE MEDICATIONS? :NO DO YOU HAVE ANY KIDNEY OR LIVER DISEASE? :NO IS THERE A CHANCE YOU COULD BE ? :NO ARE YOU BREAST FEEDING? :NO CURRENT MEDICATIONS TAKING ASPIRIN 81 81 MG TABLET CHEWABLE 1 TABLET ORALLY ONCE A DAY TAKING ATENOLOL 100 MG TABLET 1 TABLET ORALLY ONCE A DAY TAKING CITALOPRAM HYDROBROMIDE 20 MG TABLET 1 TABLET ORALLY ONCE A DAY TAKING FLONASE 50 MCG/DOSE INHALER 1 SPRAY IN EACH NOSTRIL NASALLY ONCE A DAILY-TAKES NEEDED TAKING HYDROCHLOROTHIAZIDE 25 MG TABLET 1 TABLET IN THE MORNING ORALLY ONCE A DAY TAKING NOVOLOG FLEXPEN 100 UNIT/ML SOLUTION PEN-INJECTOR SLIDING SCALE SUBCUTANEOUS TAKING LANTUS SOLOSTAR 100 UNIT/ML SOLUTION 60 UNITS SUBCUTANEOUS DAILY TAKING LISINOPRIL 40 MG TABLET 1 TABLET ORALLY ONCE A DAY TAKING PANTOPRAZOLE SODIUM 40 MG TABLET DELAYED RELEASE 1 TABLET ORALLY ONCE A DAY TAKING CRESTOR 20 MG TABLET 1 TABLET ORALLY ONCE A DAY TAKING METFORMIN HCL 850 MG TABLET 1 TABLET WITH MEALS ORALLY TWICE A DAY TAKING IBUPROFEN 600 MG TABLET 1 TABLET WITH FOOD OR MILK NEEDED ORALLY THREE TIMES A DAY TAKING ACETAMINOPHEN 325 MG CAPSULE 1 CAPSULE NEEDED ORALLY EVERY 4 HRS TAKING EMPAGLIFLOZIN 25 MG TABLET 1 TABLET ORALLY ONCE A DAY TAKING GABAPENTIN 600 MG TABLET 1 TABLET ORALLY Q8H TID TAKING VIT D-VIT E-SAFFLOWER OIL 1 CAP DAILY TAKING MULTI FOR HIM 50+ 1 CAP DAILY TAKING MIRALAX - PACKET 1 PACKET MIXED WITH 8 OUNCES OF FLUID ORALLY ONCE A DAY TAKING TIZANIDINE HCL 2 MG TABLET TAKE TWO TABLETS BY MOUTH AT BEDTIME ORAL TAKING CICLOPIROX 8 % SOLUTION 1 APPLICATION EXTERNALLY ONCE A DAY TO TOENAILS AT NIGHT TAKING CICLOPIROX 0.77 % GEL 1 APPLICATION EXTERNALLY TWICE A DAY TO FEET AND BACK RASH (USE LOTRIMIN ULTRA TO FEET MID-MORNING) MEDICATION LIST REVIEWED AND RECONCILED WITH THE PATIENT PAST MEDICAL HISTORY HYPERLIPIDEMIA HYPERTENSION DIABETES MELLITUS TYPE 2 ACID REFLUX ARTHRITIS ANKYLOSIS SPONDYLITIS/ ARTHRITIS HEALTH SPEC - SYRACUSE BACK PAIN TOUNGE CA ALLERGIES LIPITOR: MUSCLE PAIN - SIDE EFFECTS FAMILY HISTORY FATHER: , DIAGNOSED WITH DIABETES MOTHER: ALIVE, UNSPECIFIED CEREBRAL ARTERY OCCLUSION WITH CEREBRAL INFARCTION, OTHER SPECIFIED CONDITIONS INFLUENCING HEALTH STATUS 4 SON(S) , 1 DAUGHTER(S) - HEALTHY. MOTHER HAS HISTORY OF ARTHRITIS AND STROKE. DENIES FAMILY HX OF MELANONA AND PANCREATIC CANCER. SOCIAL HISTORY GENERAL: TOBACCO USE ARE YOU A:NONSMOKER LATEX QUESTIONNAIRE LATEX ALLERGY : HAVE YOU EVER DEVELOPED ANY TYPE OF REACTION AFTER HANDLING LATEX PRODUCTS SUCH RUBBER GLOVES, CONDOMS, DIAPHRAGMS, BALLOONS, SOCKS, OR UNDERWEAR?NO LATEX ALLERGY : HAVE YOU EVER DEVELOPED ANY TYPE OF REACTION DURING OR AFTER DENTAL APPOINTMENT, VAGINAL/RECTAL EXAMINATION, SURGICAL PROCEDURE, OR ANY OTHER EXPOSURE?NO LATEX RISK : HAVE YOU EVER HAD ANY DIFFICULTY BREATHING OR HIVES AFTER EATING OR HANDLING ANY FRUITS, OR VEGETABLES; SUCH KIWI, BANANAS, STONE FRUITS, OR CHESTNUTSNO LATEX RISK : DO YOU HAVE A PREVIOUS PERSONAL HISTORY OF MORE THAN NINE SURGERIES, SPINA BIFIDA, OR REPEATED CATHERIZATIONS? NO LATEX RISK : ARE YOU FREQUENTLY EXPOSED TO LATEX PRODUCTS IN YOUR OCCUPATION?NO DATE ASKED : 12/24/2020 ALCOHOL USE: NO. ALCOHOL SCREENING DID YOU HAVE A DRINK CONTAINING ALCOHOL IN THE PAST YEAR?YES HOW OFTEN DID YOU HAVE SIX OR MORE DRINKS ON ONE OCCASION IN THE PAST YEAR?NEVER (0 POINTS) HOW MANY DRINKS DID YOU HAVE ON A TYPICAL DAY WHEN YOU WERE DRINKING IN THE PAST YEAR?1 OR 2 (0 POINTS) HOW OFTEN DID YOU HAVE A DRINK CONTAINING ALCOHOL IN THE PAST YEAR?TWO TO FOUR TIMES A MONTH (2 POINTS) POINTS2 INTERPRETATIONNEGATIVE RECREATIONAL DRUG USE DRUG USE?NO CAFFEINE CAFFEINE USE?YES COFFEE DAILY YARSANI [id number] GNOSTICISM LANGUAGE LANGUAGES SPOKEN:ALGERIAN LEARNING BARRIERS / SPECIAL NEEDS BARRIERS TO LEARNING?NO HEARING IMPAIRED?NO VISION IMPAIRED?YES :CORRECTIVE LENSES READING COGNITIVELY IMPAIRED?NO READINESS TO LEARN?YES LEARNING PREFERENCES?YES :DEMONSTRATION/VERBAL INSTRUCTION LEARNING CAPABILITIES PRESENT?YES EMOTIONAL BARRIERS?NO SPECIAL DEVICES?NO CERTIFIED OPHTHALMIC ASSISTANT NEEDED?NO DOMESTIC VIOLENCE DO YOU FEEL SAFE IN YOUR ENVIRONMENT?YES PATIENT DESCRIBES PAIN : ACHING, IT COMES AND GOES, SHARP, THROBBING, SHOOTING, FROM 0-10, WHAT LEVEL IS YOUR PAIN TODAY? 7, PRECIPITATING FACTORS ACTIVITY, WALKING, ALLEVIATING FACTORS REST, MEDICATIONS. - PFS REFERRAL NEEDED?NO CLERGY REFERRAL NEEDED?NO PUBLIC HEALTH REFERRAL NEEDED?NO WAS THE PROVIDER NOTIFIED OF ANY PERTINENT INFO? N/A HAS THE PATIENT BEEN EDUCATED REGARDING HIS/HER PLAN OF CARE?YES HAS THE PATIENT BEEN EDUCATED REGARDING PAIN, THE RISK FOR PAIN, THE IMPORTANCE OF EFFECTIVE PAIN MANAGEMENT, AND THE PAIN ASSESSMENT PROCESS?YES ADVANCE DIRECTIVE ADVANCE DIRECTIVE DISCUSSED WITH PATIENT:YES PT DOES NOT HAVE ANY ADVANCED DIRECTIVES AND HE DECLINES INFORMATION ON HCP AT THIS TIME, STATES THAT HE HAS THE INFORMATION AT HOME. ASSISTANCE OFFERED IN COMPLETING HCP IF NEEDED. REVIEW OF SYSTEMS CONSTITUTIONAL: ANY RECENT FEVER NO . CHILLS NO . WEIGHT CHANGE OF UNKNOWN REASONS NO . GASTROENTEROLOGY: NEW UNEXPLAINABLE CHANGES IN BOWEL CONTROL NO . CONSTIPATION NO . GENITOURINARY: ANY NEW CHANGE IN BLADDER CONTROL? NO . NEUROLOGY: NEW ONSET DIZZINESS OR NEUROLOGICAL CHANGES NOT MENTIONED NO . NEW NUMBNESS OR PAIN PATTERNS NOT MENTIONED AND PERTINENT TO TODAY'S VISIT NO . CARDIOLOGY: NEW CHEST PRESSURE NO . PATIENT DENIES NO . RESPIRATORY: UNEXPLAINABLE COUGH NO . NEW SHORTNESS OF BREATH NO . VITAL SIGNS WT 249 LBS, HT 70 IN, BMI 35.72 INDEX, BP 145/69 MM HG, HR 58 /MIN, RR 18 /MIN, TEMP 97.5 F, OXYGEN SAT % 98%, SAFE IN ENV? (Y/N) YEST.KENNETH DANIELS EXAMINATION GENERAL EXAMINATION: GENERALNO ACUTE DISTRESS, WELL NOURISHED AND HYDRATED. PSYCHAPPROPRIATE MOOD AND AFFECT . LUNGS:CLEAR TO AUSCULTATION BILATERALLY, NO WHEEZES, RHONCHI, RALES. HEART:NO MURMURS, REGULAR RATE AND RHYTHM. BACK:DENIES POINT TENDERNESS ALONG LUMBAR SPINE, SURROUNDING SKIN SHOWS NO ERYTHEMA, ECCHYMOSIS, INCREASED WARMTH, AND/OR SKIN ERUPTIONS NOTED. PATIENT DOES ENDORSE INCREASED PAIN WITH FACET LOADING. . ASSESSMENTS OTHER CHRONIC PAIN - G89.29 (PRIMARY) SPONDYLOSIS OF LUMBOSACRAL REGION WITHOUT MYELOPATHY OR RADICULOPATHY - M47.817, RISK: (NULL) TREATMENT OTHER CHRONIC PAIN PAIN PROCEDURE LOGDATE OF [id number]/05/2021PROCEDURE:LEFT DIAGNOSTIC LUMBAR FACET BLOCK #2 L4-L5, L5-K9BWIUED OF PRE SEDATE0/0 PRESEDATERESULT:PRE-8/10 POST 0-4/10 X 5 HRS NOTES: 70-YEAR-OLD MALE IN FOR POST DIAGNOSTIC FACET BLOCK #2 FOLLOW-UP. GIVEN PRESENTING SYMPTOMS RECOMMENDED COOL RF OF THE LEFT LUMBAR SPINE L4-L5 L5-S1 WITH POSTPROCEDURAL FOLLOW-UP. PATIENT HAS EXPRESSED UNDERSTANDING OF AND WAS IN AGREEMENT WITH TREATMENT PLAN. GIVEN TIME TO ASK QUESTIONS AND EXPRESS CONCERNS. PRINTED AND REVIEWED PRE PROCEDURE TEACHING, PATIENT VERBALIZED UNDERSTANDING THO DANIELS PROCEDURE CODES FA211 ESTABILISHED PATIENT [facility] FACILITY CHARGE DISPOSITION & COMMUNICATION FOLLOW UP POST PROCEDURE (REASON: COOL RADIO FREQUENCY OF THE LEFT LUMBAR SPINE L4-L5, L5-S1) ELECTRONICALLY SIGNED BY MARIXA SANDRA ON 12/25/2020 AT 08:47 AM EDT DISCLAIMER : THIS IS A VISIT SUMMARY EXTRACTED FROM THE [facility] CHART. IT IS NOT A COPY OF THE [facility] PROGRESS NOTE. MYNOR
== END ==
LOC: M PAIN 10:15
PROVIDERS: ATTEND Family Medicine
DX: G89.29 Other chronic pain (principal); M47.817 Spondylosis without myelopathy or radiculopathy, lumbosacral region; E78.5 Hyperlipidemia, unspecified; I10 Essential (primary) hypertension; E11.9 Type 2 diabetes mellitus without complications; K21.9 Gastro-esophageal reflux disease without esophagitis; Z79.82 Long term (current) use of aspirin; Z79.4 Long term (current) use of insulin; Z79.899 Other long term (current) 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; Z88.8 Allergy status to other drugs, medicaments and biological substances

== ENCOUNTER → 2021-01-04 | Outpatient (CLI) | payer MEDICARE, OTHER | LOC: M LABSMTC 10:10 | PROVIDERS: ATTEND Anesthesiology | DX: Z11.52 Encounter for screening for COVID-19 (principal) ==

== ENCOUNTER → 2021-01-09 | Outpatient (CLI) | payer MEDICARE, OTHER ==
[~2021-01-09] MED LIST changes: +BUPIVACAINE HCL 0.25% 30ML VIAL As Ordered ONE; +LIDOCAINE 1% SDV 30ML VIAL As Ordered ONE; +dexameTHASONE 10MG/1ML VIAL PRES.FREE (J1100 PER 1MG) As Ordered ONE; +diazePAM 5MG TABLET As Ordered ONE; +oxyCODONE 5MG TAB As Ordered ONE
--- NOTE | 2021-01-09 17:30 | REP ---
INDICATION: LEFT LUMBAR COOL RAIOFREQUENCY L4-L5, L5-S1. COMPARISON: None. TECHNIQUE: Four views. 36.9 seconds of fluoroscopy time is reported. FINDINGS: A sequence of 4 last image hold fluoroscopically obtained spot radiograph(s) of the lumbar spine document(s) needle position(s) and contrast injection associated with injection procedure. IMPRESSION: Procedural imaging. <Electronically signed by Ted Hathaway > 01/09/21 [id number]
--- NOTE | 2021-01-15 02:25 | ECWPNPC ---
PATIENT NAME: TYE CLAUDIO : 1950 GENDER: MALE VISIT DATE: 01/09/2021 DISCHARGE DATE: 01/09/21 1528 VISIT LOCKED DATE TIME: PHYSICIAN: GARRETT MEDLEY MD RESOURCE: GARRETT MEDLEY MD REASON FOR APPOINTMENT 1. LEFT LUMBAR COOL RADIOFREQUENCY L4-L5, L5-S1 HISTORY OF PRESENT ILLNESS GENERAL: -. FALL RISK SCREENING: SCREENING : NO FALLS REPORTED IN THE LAST YEAR. PAIN SCREENING: PATIENT HAS A COMPLAINT OF ACUTE OR CHRONIC PAIN :YES LOCATION OF PAIN:LOW BACK, LEG(S) INTENSITY OF PAIN (SCALE OF 1 TO 10):8 6-/10 WHAT DOES YOUR PAIN FEEL LIKE:ACHING, SHOOTING DURATION:INTERMITTENT PAIN IS INCREASED BY:ACTIVITIES PAIN IS DECREASED BY:SITTING PLAN/GOALS/TREATMENT/INTERVENTION/FOLLOW UP:SEE PLAN NURSING NOTE: -. PAIN CENTER INTAKE QUESTIONS: DO YOU HAVE A HISTORY OF MRSA? :NO DO YOU TAKE A BLOOD THINNERS? :NO DO YOU HAVE ANY BLEEDING DISORDERS? :NO ANY NEW NUMBNESS OR WEAKNESS IN YOUR LEGS OR ARMS? :NO ANY PACEMAKER,DEFIBRILLATOR, OR DORSAL COLUMN STIMULATOR? :NO DO YOU HAVE ANY RASHES OR OPEN SORES? :NO ARE YOU ALLERGIC TO IV DYE? :NO ARE YOU DIABETIC? :YES ANY NEW PROBLEMS WITH YOUR MEDICATIONS? :NO HAVE YOU RECEIVED A VACCINE IN THE PAST 30 DAYS? :NO DO YOU PLAN TO RECEIVE A VACCINE IN THE NEXT 21 DAYS? :NO DO YOU TAKE ANY IMMUNOSUPPRESSIVE MEDICATIONS? :NO ANY HISTORY OF SEIZURES? :NO ANY HISTORY OF CARDIAC ISSUES OR EVENTS? :NO DO YOU HAVE ANY KIDNEY OR LIVER DISEASE? :NO DO YOU HAVE SLEEP APNEA? :YES DO YOU WEAR A CPAP?YES ANY RECENT HEAD INJURY? :NO DO YOU HAVE ANY NEW INFECTIONS? :NO IS THERE A CHANCE YOU COULD BE ? :N/A ARE YOU BREAST FEEDING? :N/A WHEN DID YOU LAST EAT? : 01/09/21 08 WHEN DID YOU LAST DRINK? : 01/09/21 08 WHAT DID YOU LAST DRINK? : WATER NAME OF PERSON DRIVING YOU HOME? : GEORGE (DAUGHTER) DO YOU HAVE ANY OTHER QUESTIONS OR CONCERNS? : NO CURRENT MEDICATIONS TAKING ASPIRIN 81 81 MG TABLET CHEWABLE 1 TABLET ORALLY ONCE A DAY TAKING ATENOLOL 100 MG TABLET 1 TABLET ORALLY ONCE A DAY, NOTES: 5/5/21 2100 TAKING CITALOPRAM HYDROBROMIDE 20 MG TABLET 1 TABLET ORALLY ONCE A DAY, NOTES: 01/08/212099 TAKING FLONASE 50 MCG/DOSE INHALER 1 SPRAY IN EACH NOSTRIL NASALLY ONCE A DAILY-TAKES NEEDED TAKING HYDROCHLOROTHIAZIDE 25 MG TABLET 1 TABLET IN THE MORNING ORALLY ONCE A DAY, NOTES: 01/08/212099 TAKING NOVOLOG FLEXPEN 100 UNIT/ML SOLUTION PEN-INJECTOR SLIDING SCALE SUBCUTANEOUS , NOTES: 01/08/211799 TAKING LANTUS SOLOSTAR 100 UNIT/ML SOLUTION 60 UNITS SUBCUTANEOUS DAILY, NOTES: 01/08/212099 TAKING LISINOPRIL 40 MG TABLET 1 TABLET ORALLY ONCE A DAY, NOTES: 01/08/212099 TAKING PANTOPRAZOLE SODIUM 40 MG TABLET DELAYED RELEASE 1 TABLET ORALLY ONCE A DAY TAKING CRESTOR 20 MG TABLET 1 TABLET ORALLY ONCE A DAY TAKING METFORMIN HCL 850 MG TABLET 1 TABLET WITH MEALS ORALLY TWICE A DAY, NOTES: 01/08/212099 TAKING IBUPROFEN 600 MG TABLET 1 TABLET WITH FOOD OR MILK NEEDED ORALLY THREE TIMES A DAY, NOTES: 01/08/212099 TAKING ACETAMINOPHEN 325 MG CAPSULE 1 CAPSULE NEEDED ORALLY EVERY 4 HRS, NOTES: 01/08/212099 TAKING EMPAGLIFLOZIN 25 MG TABLET 1 TABLET ORALLY ONCE A DAY, NOTES: (JARDIANCE) 01/08/212099 TAKING GABAPENTIN 600 MG TABLET 1 TABLET ORALLY Q8H TID, NOTES: 01/08/212099 TAKING VIT D-VIT E-SAFFLOWER OIL 1 CAP DAILY TAKING MULTI FOR HIM 50+ 1 CAP DAILY TAKING MIRALAX - PACKET 1 PACKET MIXED WITH 8 OUNCES OF FLUID ORALLY ONCE A DAY TAKING TIZANIDINE HCL 2 MG TABLET TAKE TWO TABLETS BY MOUTH AT BEDTIME ORAL , NOTES: 01/08/212099 TAKING CICLOPIROX 8 % SOLUTION 1 APPLICATION EXTERNALLY ONCE A DAY TO TOENAILS AT NIGHT TAKING CICLOPIROX 0.77 % GEL 1 APPLICATION EXTERNALLY TWICE A DAY TO FEET AND BACK RASH (USE LOTRIMIN ULTRA TO FEET MID-MORNING) MEDICATION LIST REVIEWED AND RECONCILED WITH THE PATIENT PAST MEDICAL HISTORY HYPERLIPIDEMIA HYPERTENSION DIABETES MELLITUS TYPE 2 ACID REFLUX ARTHRITIS ANKYLOSIS SPONDYLITIS/ ARTHRITIS HEALTH SPEC - SYRACUSE BACK PAIN TOUNGE CA ALLERGIES LIPITOR: MUSCLE PAIN - SIDE EFFECTS SOCIAL HISTORY GENERAL: TOBACCO USE ARE YOU A:NONSMOKER LATEX QUESTIONNAIRE LATEX ALLERGY : HAVE YOU EVER DEVELOPED ANY TYPE OF REACTION AFTER HANDLING LATEX PRODUCTS SUCH RUBBER GLOVES, CONDOMS, DIAPHRAGMS, BALLOONS, SOCKS, OR UNDERWEAR?NO LATEX ALLERGY : HAVE YOU EVER DEVELOPED ANY TYPE OF REACTION DURING OR AFTER DENTAL APPOINTMENT, VAGINAL/RECTAL EXAMINATION, SURGICAL PROCEDURE, OR ANY OTHER EXPOSURE?NO LATEX RISK : HAVE YOU EVER HAD ANY DIFFICULTY BREATHING OR HIVES AFTER EATING OR HANDLING ANY FRUITS, OR VEGETABLES; SUCH KIWI, BANANAS, STONE FRUITS, OR CHESTNUTSNO LATEX RISK : DO YOU HAVE A PREVIOUS PERSONAL HISTORY OF MORE THAN NINE SURGERIES, SPINA BIFIDA, OR REPEATED CATHERIZATIONS? NO LATEX RISK : ARE YOU FREQUENTLY EXPOSED TO LATEX PRODUCTS IN YOUR OCCUPATION?NO DATE ASKED : 01/09/2021 ALCOHOL USE: NO. ALCOHOL SCREENING DID YOU HAVE A DRINK CONTAINING ALCOHOL IN THE PAST YEAR?YES HOW OFTEN DID YOU HAVE SIX OR MORE DRINKS ON ONE OCCASION IN THE PAST YEAR?NEVER (0 POINTS) HOW MANY DRINKS DID YOU HAVE ON A TYPICAL DAY WHEN YOU WERE DRINKING IN THE PAST YEAR?1 OR 2 (0 POINTS) HOW OFTEN DID YOU HAVE A DRINK CONTAINING ALCOHOL IN THE PAST YEAR?TWO TO FOUR TIMES A MONTH (2 POINTS) POINTS2 INTERPRETATIONNEGATIVE RECREATIONAL DRUG USE DRUG USE?NO CAFFEINE CAFFEINE USE?YES COFFEE DAILY ORIENTAL ORTHODOX [id number] FAITH LANGUAGE LANGUAGES SPOKEN:FRISIAN LEARNING BARRIERS / SPECIAL NEEDS BARRIERS TO LEARNING?NO HEARING IMPAIRED?NO VISION IMPAIRED?YES COGNITIVELY IMPAIRED?NO :CORRECTIVE LENSES READING READINESS TO LEARN?YES LEARNING PREFERENCES?YES :DEMONSTRATION/VERBAL INSTRUCTION LEARNING CAPABILITIES PRESENT?YES EMOTIONAL BARRIERS?NO SPECIAL DEVICES?NO SNUFF BOX FINISHER NEEDED?NO DOMESTIC VIOLENCE DO YOU FEEL SAFE IN YOUR ENVIRONMENT?YES PATIENT DESCRIBES PAIN : ACHING, IT COMES AND GOES, SHARP, THROBBING, SHOOTING, FROM 0-10, WHAT LEVEL IS YOUR PAIN TODAY? 7, PRECIPITATING FACTORS ACTIVITY, WALKING, ALLEVIATING FACTORS REST, MEDICATIONS. - PFS REFERRAL NEEDED?NO CLERGY REFERRAL NEEDED?NO PUBLIC HEALTH REFERRAL NEEDED?NO WAS THE PROVIDER NOTIFIED OF ANY PERTINENT INFO? N/A HAS THE PATIENT BEEN EDUCATED REGARDING HIS/HER PLAN OF CARE?YES HAS THE PATIENT BEEN EDUCATED REGARDING PAIN, THE RISK FOR PAIN, THE IMPORTANCE OF EFFECTIVE PAIN MANAGEMENT, AND THE PAIN ASSESSMENT PROCESS?YES ADVANCE DIRECTIVE ADVANCE DIRECTIVE DISCUSSED WITH PATIENT:YES PT DOES NOT HAVE ANY ADVANCED DIRECTIVES AND HE DECLINES INFORMATION ON HCP AT THIS TIME, STATES THAT HE HAS THE INFORMATION AT HOME. ASSISTANCE OFFERED IN COMPLETING HCP IF NEEDED. VITAL SIGNS WT 245.6 LBS, HT 70 IN, BMI 35.24 INDEX, BP 142/66 MM HG, HR 50 /MIN, RR 18 /MIN, TEMP 98.2 F, OXYGEN SAT % 97%, SAFE IN ENV? (Y/N) YES, NA INITIALS AW 1409, REVIEWED BY: Master AN RN BSN. EXAMINATION GENERAL: A HISTORY AND PHYSICAL EXAM ON THE PATIENT WAS DONE ON 12/24/2020 (DATE OF ORIGINAL ASSESSMENT) IN PREPARATION OF SURGERY/PROCEDURE. I HAVE NOW REASSESSED THIS PATIENT'S HEALTH STATUS AND PERFORMED AN UPDATED EXAM TODAY. ALL CHANGES IN THE PATIENT'S HISTORY, PHYSICAL EXAM, PRE-EXISTING CONDITONS, AND INDICATIONS/CONTRAINDICATIONS TO THE PLANNED PROCEDURE AND ANESTHESIA ARE DOCUMENTED AND EVALUATED BELOW. I ATTEST TO THE ADEQUACY AND APPROPRIATENESS OF MY ASSESSMENT, AND CONFIRM THE NECESSITY FOR THE PLANNED PROCEDURE. THE PATIENT IS ALERT, ORIENTED TIMES THREE AND COOPERATIVE. LUNGS ARE CLEAR TO AUSCULTATION. HEART SHOWS REGULAR RHYTHM, NO MURMURS AND NO GALLOPS. ASSESSMENTS SPONDYLOSIS WITHOUT MYELOPATHY OR RADICULOPATHY, LUMBAR REGION - M47.816 (PRIMARY) SPONDYLOSIS WITHOUT MYELOPATHY OR RADICULOPATHY, LUMBOSACRAL REGION - M47.817 TREATMENT SPONDYLOSIS WITHOUT MYELOPATHY OR RADICULOPATHY, LUMBAR REGION [facility] FACET BLOCK (PAIN)[id number] MEDICATION: VALIUM TAB 5MG ORALLY (DIAZEPAM)BUCK HERNANDES 01/09/2021 2:45:05 PM > VERIFIED J CARLOS AN 01/09/2021 3:22:01 PM > ADMINISTERED AT 1520. MEDICATION: OXYCODONE HCL TAB 5MG ORALLY BUCK HERNANDES 01/09/2021 2:45:27 PM > VERIFIED J CARLOS AN 01/09/2021 3:22:14 PM > ADMINISTERED AT 1520. COMPLETION OF PROCEDURAL VISIT WHEN MEETS CRITERIA SPONDYLOSIS WITHOUT MYELOPATHY OR RADICULOPATHY, LUMBOSACRAL REGION SMC FACET BLOCK (PAIN)[id number] OTHERS NOTES: PAT DONE 01/07/21 Kimani MINOR RN BSN. PROCEDURES PAIN NURSING RECORD PROCEDURE IN ROOM 1618, PHYSICIAN IN ROOM 1630, START 1639, FINISH 1703, PHYSICIAN OUT OF ROOM 1704, OUT OF ROOM 1710, ECG NORMAL SINUS, PATIENT SHIELDED YES, SAFETY STRAP NO DUE TO PROCEDURE., PREP CHLORHEXIDINE AND DURAPREP Master AN RN, DRESSING TEGADERM DR. MEDLEY LOC: J CARLOS AN 01/09/2021 4:18:04 PM > 1. ALERT, ORIENTED RESP: J CARLOS AN 01/09/2021 4:18:04 PM > 1. REGULAR, NO DYSPNEA COLOR: J CARLOS AN 01/09/2021 4:18:04 PM > 1. PINK SKIN: J CARLOS AN 01/09/2021 4:18:04 PM > 1. WARM, DRY POSITION: J CARLOS AN 01/09/2021 4:18:04 PM > 1. PRONE VITALS: BUCK HERNANDES 01/09/2021 3:35:35 PM > 145/90, 50-18-95% J CARLOS AN 01/09/2021 3:50:11 PM > 133/61, 51, 95% RA, 18. J CARLOS AN 01/09/2021 4:05:55 PM > 121/57, 52, 96% RA, 18. J CARLOS AN 01/09/2021 4:23:28 PM > 147/72, 50, 96% RA, 18. J CARLOS AN 01/09/2021 4:30:27 PM > 138/73, 51, 95% RA, 18. J CARLOS AN 01/09/2021 4:45:50 PM > 140/51, 52, 94% RA, 18. J CARLOS AN 01/09/2021 5:00:21 PM > 161/100, 52, 94% RA, 18. J CARLOS AN 01/09/2021 5:01:41 PM > 163/102, 52, 94% RA, 18. J CARLOS AN 01/09/2021 5:18:58 PM > POST PROCEDURE 152/74, 55, 94% RA, 18. COMPLETION OF PROCEDURE APPOINTMENT: POST PAIN 09/15 INJECTION SITE., DRESSING SITE DRY AND INTACT, IV N/A, GAIT STEADY, TEACHING COMPLETED, PATIENT ACKNOWLEDGES UNDERSTANDING YES PATIENT PROVIDED POST PROCEDURE PAIN DIARY, COVID SYMPTOM MONITORING INSTRUCTIONS AND POST PROCEDURE INSTRUCTIONS, HANDOUTS REVIEWED WITH PATIENT; PATIENT VERBALIZES UNDERSTANDING, NO QUESTIONS OR CONCERNS AT THIS TIME., PROCEDURE APPOINTMENT COMPLETED AT 1725 BY: M. NATALIYA RN PN RADIOFREQUENCY DATE OF PROCEDURE 01/09/2021 THERMO LESION RADIOFREQUENCY > 80 DEGREES : COOL - AVANOS SYSTEM SET AT 60* WITH TISSUE TARGET TEMP > 80* OR MORE. STRAIGHT NEEDLE SIDE: : LEFT LEVELS: : L4-L5, L5-S1 NEEDLE/CATHETER/GAUGE: : 17 CANULA LENGTH: : 100 MM ACTIVE TIP: : 4 MM GROUNDING PAD PLACED ON AFFECTED SIDE (MUSCULAR AREA): : LUMBAR (POSTERIOR UPPER THIGH) 1 ST LEVEL: : L3, INITAL POSTIVE SENSORY RESPONE (50 HZ) 0.7, MOTOR RESPONSE (2 HZ-UP TO 3 VOLTS) 3.0 , PRE-LOCAL IMPEDENCE READING OHMS 330 , POST-LOCAL IMPEDENCE READING OHMS 179 , DURING RF IMPEDENCE READING OHMS 170 2 ND LEVEL: : L4, INITIAL POSITIVE SENSORY RESPONSE (50 HZ) 0.6, MOTOR RESPONSE (2 HZ- UP TO 3 VOLTS) 3.0 , PRE-LOCAL IMPEDENCE READING OHMS 354 , POST-LOCAL IMEPEDENCE READING OHMS 230 , DURING RF IMPEDENCE READING OHMS [address] LEVEL: : L5, INITIAL POSITIVE SENSORY RESPONSE (50 HZ) 0.6, MOTOR RESPONSE (2HZ- UP TO 3 VOLTS) 3.0 , PRE- LOCAL IMPEDENCE READING OHMS 398 , POST-LOCAL IMPEDENCE READING OHMS 214 , DURING RF IMPEDENCE READING OHMS 210 PRE PROCEDURE DIAGNOSES 1. LUMBAR SPONDYLOSIS. 2. LUMBOSACRAL SPONDYLOSIS POST PROCEDURE DIAGNOSES 1. LUMBAR SPONDYLOSIS. 2. LUMBOSACRAL SPONDYLOSIS PROCEDURE LEFT L4-L5 AND LEFT L5-S1 LUMBAR FACET RADIOFREQUENCY SURGEON DR. GARRETT MEDLEY ASSISTANT PROFESSOR OF BIOCHEMISTRY NONE ANESTHESIA LOCAL PRE PROCEDURE REPORT THE PATIENT HAS HISTORY OF CHRONIC LOW BACK PAIN. I EVALUATED THE PATIENT AND REVIEWED THE CHART. I WENT OVER THE RISKS, ALTERNATIVES, AND BENEFITS ASSOCIATED WITH THIS PROCEDURE. THE PATIENT WOULD LIKE TO PROCEED AND GAVE CONSENT TO PERFORM THE PROCEDURE. THE PATIENT DENIES UNEXPLAINABLE WEIGHT LOSS, FEVER, CHILLS OR NEW CHANGES IN URINARY OR BOWEL CONTROL. THE PATIENT IS COVID-19 NEGATIVE DESCRIPTION OF PROCEDURE THE PATIENT WAS BROUGHT TO THE PROCEDURE ROOM AND PLACED IN THE PRONE POSITION. A TIMEOUT WAS PERFORMED WHERE THE CONSENTED SITE WAS VERIFIED WITH EVERYONE IN THE ROOM. THE LUMBOSACRAL AREA WAS CLEANED WITH CHLORHEXIDINE AND DURAPREP SOLUTION AND DRAPED ASEPTICALLY. THE PROCEDURE WAS DONE UNDER STERILE CONDITIONS. UNDER FLUOROSCOPIC GUIDANCE, TARGETS WERE SELECTED AT THE INTERSECTION OF THE LEFT TRANSVERSE PROCESS OF L4, L5 AND ALA OF S1 WITH ITS RESPECTIVE SUPERIOR ARTICULAR PROCESS. I CONFIRMED AGAIN THE SITE OF TARGET. LIDOCAINE WAS USED TO NUMB THE SKIN AND THE SUBCUTANEOUS TISSUE BELOW IT. RADIOFREQUENCY CANNULAS, 17-GAUGE, 100 MM LONG WITH 4 MM ACTIVE TIP, WERE ADVANCED UNDER FLUOROSCOPIC GUIDANCE AND FOLLOWING PATIENT FEEDBACK UNTIL THE TARGET AREA WAS REACHED. POSITION OF THE CANNULA WAS VERIFIED WITH AP AND LATERAL VIEWS. AFTER PROPER POSITION OF THE CANNULA WAS ACHIEVED, WE WORKED WITH THE LEFT SELECTED MEDIAN BRANCHES OF L3, L4 AND THE DORSAL RAMI OF L5. WE MEASURED THE CORRESPONDING IMPEDANCES AND MOTOR RESPONSES INDICATED IN THE RADIOFREQUENCY WORK SHEET. POSITION OF THE CANNULA WAS VERIFIED AGAIN WITH AP AND LATERAL VIEWS. LIDOCAINE 1%, 2 ML, WAS INJECTED AT EACH LEVEL. RADIOFREQUENCY WAS DONE AT EACH LEVEL USING THE Magnasense SYSTEM-- COOLED RF-- WITH A SETTING AT THE MACHINE OF 60 DEGREES WITH A TARGET TISSUE TEMPERATURE OF 80 TO 90 DEGREES FOR A MINIMUM OF 150 SECONDS. AFTER RADIOFREQUENCY WAS DONE, THE PATIENT RECEIVED BUPIVACAINE 0.125%,1 ML, WITH DEXAMETHASONE 3 MG AT EACH SITE. THERE WAS NO EVIDENCE OF BLOOD, PARESTHESIA OR CEREBROSPINAL FLUID DURING THE PROCEDURE. THE PATIENT WAS SENT TO THE RECOVERY ROOMS. THE PATIENT WAS MOVING THE EXTREMITIES AND DOING WELL. EBL LESS THAN 5 ML. THERE WERE NO COMPLICATIONS DURING THE PROCEDURE. FLUOROSCOPY TIME WAS 36 SECONDS POST PROCEDURE NOTE THE PATIENT WILL BE SEEN IN A FOLLOW UP IN THE NEXT FEW WEEKS. INSTRUCTIONS WERE GIVEN, QUESTIONS WERE ANSWERED, AND THE PATIENT EXPRESSED UNDERSTANDING AND AGREES WITH THE PLAN. . I, MELQUIADES GONCALVES, DOCUMENTED THE ABOVE INFORMATION ACTING A SCRIBE FOR DR. MEDLEY. I HAVE REVIEWED THE ABOVE DOCUMENT, WRITTEN BY MELQUIADES GONCALVES, KARMENE, AND I VERIFY THAT IT IS ACCURATE PROCEDURE CODES 78750 DESTROY LUMB/SAC FACET JNT, [place]IF[place]: [place] [address] DESTROY L/S FACET JNT ADDL, MODIFIERS: LT DISPOSITION & COMMUNICATION FOLLOW UP FOLLOW UP WITH RELIGIOUS HEALER (REASON: POST LEFT LUMBAR COOL RADIOFREQUENCY L4-L5, L5-S1) ELECTRONICALLY SIGNED BY GARRETT MEDLEY MD, MD ON 01/14/2021 AT 03:23 PM EDT DISCLAIMER : THIS IS A VISIT SUMMARY EXTRACTED FROM THE [employer] CHART. IT IS NOT A COPY OF THE [employer] PROGRESS NOTE. MTDD
== END ==
LOC: M PAIN 14:00
PROVIDERS: ATTEND Anesthesiology
DX: M47.816 Spondylosis without myelopathy or radiculopathy, lumbar region (principal); M47.817 Spondylosis without myelopathy or radiculopathy, lumbosacral region; E78.5 Hyperlipidemia, unspecified; I10 Essential (primary) hypertension; E11.9 Type 2 diabetes mellitus without complications; K21.9 Gastro-esophageal reflux disease without esophagitis; Z85.810 Personal history of malignant neoplasm of tongue; M45.9 Ankylosing spondylitis of unspecified sites in spine; Z79.4 Long term (current) use of insulin; Z79.899 Other long term (current) 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; Z88.8 Allergy status to other drugs, medicaments and biological substances
CPT/HCPCS: 64635; 64636; J1100

== ENCOUNTER → 2021-01-23 | Outpatient (CLI) | payer MEDICARE, OTHER ==
[~2021-01-23] MED LIST changes: -BUPIVACAINE HCL 0.25% 30ML VIAL As Ordered ONE; -LIDOCAINE 1% SDV 30ML VIAL As Ordered ONE; -dexameTHASONE 10MG/1ML VIAL PRES.FREE (J1100 PER 1MG) As Ordered ONE; -diazePAM 5MG TABLET As Ordered ONE; -oxyCODONE 5MG TAB As Ordered ONE
--- NOTE | 2021-01-28 03:34 | ECWPNPC ---
PATIENT NAME: TYE CLAUDIO : 1950 GENDER: MALE VISIT DATE: 01/23/2021 DISCHARGE DATE: 01/23/21 1054 VISIT LOCKED DATE TIME: PHYSICIAN: LULY JOHNSON RESOURCE: LULY JOHNSON REASON FOR APPOINTMENT 1. POST COOL RADIOFREQUENCY OF THE LEFT LUMBAR SPINE L4-L5, L5-S1 HISTORY OF PRESENT ILLNESS GENERAL: HPI 70-YEAR-OLD MALE IN FOR POST RADIOFREQUENCY OF THE LEFT LUMBAR SPINE. PATIENT FEELS THE PROCEDURE WAS SUCCESSFUL RATING HIS PAIN PREPROCEDURE AT A 7-8 OUT OF 10 AND POSTPROCEDURE 0-1 OUT OF 10. PATIENT FURTHER STATES HE WOULD LIKE TO DISCUSS POTENTIALLY GETTING HIS RIGHT SIDE DONE HE IS EXPERIENCING INCREASED PAIN ON THAT SIDE.. -. FALL RISK SCREENING: SCREENING : NO FALLS REPORTED IN THE LAST YEAR. PAIN SCREENING: PATIENT HAS A COMPLAINT OF ACUTE OR CHRONIC PAIN :YES LOCATION OF PAIN:LOW BACK INTENSITY OF PAIN (SCALE OF 1 TO 10):1 WHAT DOES YOUR PAIN FEEL LIKE:ACHING, INTERMITTENT DURATION:INTERMITTENT PAIN IS INCREASED BY:ACTIVITIES, PROLONGED STANDING PAIN IS DECREASED BY:SITTING COOL RADIOFREQUENCY NURSING NOTE: -. PAIN CENTER INTAKE QUESTIONS: DO YOU HAVE A HISTORY OF MRSA? :NO DO YOU TAKE A BLOOD THINNERS? :NO DO YOU HAVE ANY BLEEDING DISORDERS? :NO ANY NEW NUMBNESS OR WEAKNESS IN YOUR LEGS OR ARMS? :NO ANY PACEMAKER,DEFIBRILLATOR, OR DORSAL COLUMN STIMULATOR? :NO DO YOU HAVE ANY RASHES OR OPEN SORES? :NO ARE YOU ALLERGIC TO IV DYE? :NO ARE YOU DIABETIC? :YES ANY NEW PROBLEMS WITH YOUR MEDICATIONS? :NO HAVE YOU RECEIVED A VACCINE IN THE PAST 30 DAYS? :NO DO YOU PLAN TO RECEIVE A VACCINE IN THE NEXT 21 DAYS? :NO DO YOU NEED ANY PRESCRIPTION? :NO DO YOU TAKE ANY IMMUNOSUPPRESSIVE MEDICATIONS? :NO DO YOU HAVE ANY KIDNEY OR LIVER DISEASE? :NO IS THERE A CHANCE YOU COULD BE ? :NO ARE YOU BREAST FEEDING? :NO CURRENT MEDICATIONS TAKING ASPIRIN 81 81 MG TABLET CHEWABLE 1 TABLET ORALLY ONCE A DAY TAKING ATENOLOL 100 MG TABLET 1 TABLET ORALLY ONCE A DAY, NOTES: 01/08/212099 TAKING CITALOPRAM HYDROBROMIDE 20 MG TABLET 1 TABLET ORALLY ONCE A DAY, NOTES: 01/08/212099 TAKING FLONASE 50 MCG/DOSE INHALER 1 SPRAY IN EACH NOSTRIL NASALLY ONCE A DAILY-TAKES NEEDED TAKING HYDROCHLOROTHIAZIDE 25 MG TABLET 1 TABLET IN THE MORNING ORALLY ONCE A DAY, NOTES: 01/08/212099 TAKING NOVOLOG FLEXPEN 100 UNIT/ML SOLUTION PEN-INJECTOR SLIDING SCALE SUBCUTANEOUS , NOTES: 01/08/211799 TAKING LANTUS SOLOSTAR 100 UNIT/ML SOLUTION 60 UNITS SUBCUTANEOUS DAILY, NOTES: 01/08/212099 TAKING LISINOPRIL 40 MG TABLET 1 TABLET ORALLY ONCE A DAY, NOTES: 01/08/212099 TAKING PANTOPRAZOLE SODIUM 40 MG TABLET DELAYED RELEASE 1 TABLET ORALLY ONCE A DAY TAKING CRESTOR 20 MG TABLET 1 TABLET ORALLY ONCE A DAY TAKING METFORMIN HCL 850 MG TABLET 1 TABLET WITH MEALS ORALLY TWICE A DAY, NOTES: 01/08/212099 TAKING IBUPROFEN 600 MG TABLET 1 TABLET WITH FOOD OR MILK NEEDED ORALLY THREE TIMES A DAY, NOTES: 01/08/212099 TAKING ACETAMINOPHEN 325 MG CAPSULE 1 CAPSULE NEEDED ORALLY EVERY 4 HRS, NOTES: 01/08/212099 TAKING EMPAGLIFLOZIN 25 MG TABLET 1 TABLET ORALLY ONCE A DAY, NOTES: (JARDIANCE) 01/08/212099 TAKING GABAPENTIN 600 MG TABLET 1 TABLET ORALLY Q8H TID, NOTES: 01/08/212099 TAKING VIT D-VIT E-SAFFLOWER OIL 1 CAP DAILY TAKING MULTI FOR HIM 50+ 1 CAP DAILY TAKING MIRALAX - PACKET 1 PACKET MIXED WITH 8 OUNCES OF FLUID ORALLY ONCE A DAY TAKING TIZANIDINE HCL 2 MG TABLET TAKE TWO TABLETS BY MOUTH AT BEDTIME ORAL , NOTES: 01/08/212099 TAKING CICLOPIROX 8 % SOLUTION 1 APPLICATION EXTERNALLY ONCE A DAY TO TOENAILS AT NIGHT TAKING CICLOPIROX 0.77 % GEL 1 APPLICATION EXTERNALLY TWICE A DAY TO FEET AND BACK RASH (USE LOTRIMIN ULTRA TO FEET MID-MORNING) MEDICATION LIST REVIEWED AND RECONCILED WITH THE PATIENT PAST MEDICAL HISTORY HYPERLIPIDEMIA HYPERTENSION DIABETES MELLITUS TYPE 2 ACID REFLUX ARTHRITIS ANKYLOSIS SPONDYLITIS/ ARTHRITIS HEALTH SPEC - SYRACUSE BACK PAIN TOUNGE CA ALLERGIES LIPITOR: MUSCLE PAIN - SIDE EFFECTS SOCIAL HISTORY GENERAL: TOBACCO USE ARE YOU A:NONSMOKER LATEX QUESTIONNAIRE LATEX ALLERGY : HAVE YOU EVER DEVELOPED ANY TYPE OF REACTION AFTER HANDLING LATEX PRODUCTS SUCH RUBBER GLOVES, CONDOMS, DIAPHRAGMS, BALLOONS, SOCKS, OR UNDERWEAR?NO LATEX ALLERGY : HAVE YOU EVER DEVELOPED ANY TYPE OF REACTION DURING OR AFTER DENTAL APPOINTMENT, VAGINAL/RECTAL EXAMINATION, SURGICAL PROCEDURE, OR ANY OTHER EXPOSURE?NO LATEX RISK : HAVE YOU EVER HAD ANY DIFFICULTY BREATHING OR HIVES AFTER EATING OR HANDLING ANY FRUITS, OR VEGETABLES; SUCH KIWI, BANANAS, STONE FRUITS, OR CHESTNUTSNO LATEX RISK : DO YOU HAVE A PREVIOUS PERSONAL HISTORY OF MORE THAN NINE SURGERIES, SPINA BIFIDA, OR REPEATED CATHERIZATIONS? NO LATEX RISK : ARE YOU FREQUENTLY EXPOSED TO LATEX PRODUCTS IN YOUR OCCUPATION?NO DATE ASKED : 01/23/2021 ALCOHOL USE: NO. ALCOHOL SCREENING DID YOU HAVE A DRINK CONTAINING ALCOHOL IN THE PAST YEAR?YES HOW OFTEN DID YOU HAVE SIX OR MORE DRINKS ON ONE OCCASION IN THE PAST YEAR?NEVER (0 POINTS) HOW MANY DRINKS DID YOU HAVE ON A TYPICAL DAY WHEN YOU WERE DRINKING IN THE PAST YEAR?1 OR 2 (0 POINTS) HOW OFTEN DID YOU HAVE A DRINK CONTAINING ALCOHOL IN THE PAST YEAR?TWO TO FOUR TIMES A MONTH (2 POINTS) POINTS2 INTERPRETATIONNEGATIVE RECREATIONAL DRUG USE DRUG USE?NO CAFFEINE CAFFEINE USE?YES COFFEE DAILY LATTER-DAY [id number] SCIENTOLOGIST LANGUAGE LANGUAGES SPOKEN:DANISH LEARNING BARRIERS / SPECIAL NEEDS CHANGE FROM LAST VISIT?NO BARRIERS TO LEARNING?NO HEARING IMPAIRED?NO VISION IMPAIRED?YES :CORRECTIVE LENSES READING COGNITIVELY IMPAIRED?NO READINESS TO LEARN?YES LEARNING PREFERENCES?YES :DEMONSTRATION/VERBAL INSTRUCTION LEARNING CAPABILITIES PRESENT?YES EMOTIONAL BARRIERS?NO SPECIAL DEVICES?NO LABEL PINKER NEEDED?NO DOMESTIC VIOLENCE DO YOU FEEL SAFE IN YOUR ENVIRONMENT?YES PATIENT DESCRIBES PAIN : ACHING, IT COMES AND GOES, SHARP, THROBBING, SHOOTING, FROM 0-10, WHAT LEVEL IS YOUR PAIN TODAY? 7, PRECIPITATING FACTORS ACTIVITY, WALKING, ALLEVIATING FACTORS REST, MEDICATIONS. - PFS REFERRAL NEEDED?NO CLERGY REFERRAL NEEDED?NO PUBLIC HEALTH REFERRAL NEEDED?NO WAS THE PROVIDER NOTIFIED OF ANY PERTINENT INFO? N/A HAS THE PATIENT BEEN EDUCATED REGARDING HIS/HER PLAN OF CARE?YES HAS THE PATIENT BEEN EDUCATED REGARDING PAIN, THE RISK FOR PAIN, THE IMPORTANCE OF EFFECTIVE PAIN MANAGEMENT, AND THE PAIN ASSESSMENT PROCESS?YES ADVANCE DIRECTIVE ADVANCE DIRECTIVE DISCUSSED WITH PATIENT:YES PT DOES NOT HAVE ANY ADVANCED DIRECTIVES AND HE DECLINES INFORMATION ON HCP AT THIS TIME, STATES THAT HE HAS THE INFORMATION AT HOME. ASSISTANCE OFFERED IN COMPLETING HCP IF NEEDED. REVIEW OF SYSTEMS CONSTITUTIONAL: ANY RECENT FEVER NO . CHILLS NO . WEIGHT CHANGE OF UNKNOWN REASONS NO . GASTROENTEROLOGY: NEW UNEXPLAINABLE CHANGES IN BOWEL CONTROL NO . CONSTIPATION NO . GENITOURINARY: ANY NEW CHANGE IN BLADDER CONTROL? NO . NEUROLOGY: NEW ONSET DIZZINESS OR NEUROLOGICAL CHANGES NOT MENTIONED NO . NEW NUMBNESS OR PAIN PATTERNS NOT MENTIONED AND PERTINENT TO TODAY'S VISIT NO . CARDIOLOGY: NEW CHEST PRESSURE NO . PATIENT DENIES NO . RESPIRATORY: UNEXPLAINABLE COUGH NO . NEW SHORTNESS OF BREATH NO . VITAL SIGNS WT 245.8 LBS, HT 70 IN, BMI 35.26 INDEX, BP 136/64 MM HG, HR 60 /MIN, RR 18 /MIN, TEMP 98.6 F, OXYGEN SAT % 98%, SAFE IN ENV? (Y/N) YES, REVIEWED BY: BHAVNA LÓPEZ MA. EXAMINATION GENERAL EXAMINATION: GENERALNO ACUTE DISTRESS, WELL NOURISHED AND HYDRATED. PSYCHAPPROPRIATE MOOD AND AFFECT . LUNGS:CLEAR TO AUSCULTATION BILATERALLY, NO WHEEZES, RHONCHI, RALES. HEART:NO MURMURS, REGULAR RATE AND RHYTHM. ASSESSMENTS OTHER CHRONIC PAIN - G89.29 (PRIMARY) SPONDYLOSIS OF LUMBOSACRAL REGION WITHOUT MYELOPATHY OR RADICULOPATHY - M47.817 TREATMENT OTHER CHRONIC PAIN PAIN PROCEDURE LOGDATE OF MZCBENVAK01/06/2021ROCEDURE:LEFT LUMBAR COOL RADIOFREQUENCY L4-L5, L5-D5LOACSQ OF PRE SEDATEVALIUM 5MG; OXYCODONE 5MGRESULT:PRE-7-8 POST 0-09/15 CONTINUES TO HELP TODAY CLINICAL NOTES: PREPROCEDURE AND PROCEDURE INFORMATION PRINTED AND PROVIDED TO PATIENT. PATIENT VERBALIZED AN UNDERSTANDING. BRODERICK LÓPEZ MA. SPONDYLOSIS OF LUMBOSACRAL REGION WITHOUT MYELOPATHY OR RADICULOPATHY NOTES: 70-YEAR-OLD MALE IN FOR POST RADIOFREQUENCY FOLLOW-UP. GIVEN PRESENTING SYMPTOMS RECOMMEND RIGHT DIAGNOSTIC LUMBAR FACET BLOCK #2 L4-L5 L5-S1. PATIENT HAS EXPRESSED UNDERSTANDING OF AND WAS IN AGREEMENT WITH TREATMENT PLAN. GIVEN TIME TO ASK QUESTIONS AND EXPRESS CONCERNS. PROCEDURE CODES FA211 ESTABILISHED PATIENT [facility] FACILITY CHARGE DISPOSITION & COMMUNICATION FOLLOW UP POST PROCEDURE (REASON: RIGHT LUMBAR DIAGNOSTIC FACET BLOCK #2 L4-L5, L5-S1) ELECTRONICALLY SIGNED BY MARIXA SANDRA ON 01/27/2021 AT 08:54 AM EDT DISCLAIMER : THIS IS A VISIT SUMMARY EXTRACTED FROM THE [employer] CHART. IT IS NOT A COPY OF THE [employer] PROGRESS NOTE. MTDD
== END ==
LOC: M PAIN 10:15
PROVIDERS: ATTEND Family Medicine
DX: G89.29 Other chronic pain (principal); M47.817 Spondylosis without myelopathy or radiculopathy, lumbosacral region; E78.5 Hyperlipidemia, unspecified; I10 Essential (primary) hypertension; E11.9 Type 2 diabetes mellitus without complications; K21.9 Gastro-esophageal reflux disease without esophagitis; M19.90 Unspecified osteoarthritis, unspecified site; M45.9 Ankylosing spondylitis of unspecified sites in spine; Z85.810 Personal history of malignant neoplasm of tongue; Z79.82 Long term (current) use of aspirin; Z79.4 Long term (current) use of insulin; Z79.899 Other long term (current) 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; Z88.8 Allergy status to other drugs, medicaments and biological substances

== ENCOUNTER → 2021-01-25 | Outpatient (CLI) | payer MEDICARE, OTHER | LOC: M LABSMTC 09:04 | PROVIDERS: ATTEND Anesthesiology | DX: Z20.822 Contact with and (suspected) exposure to COVID-19 (principal) ==

== ENCOUNTER → 2021-01-30 | Outpatient (CLI) | payer MEDICARE, OTHER ==
[~2021-01-30] MED LIST changes: +BUPIVACAINE HCL 0.25% 30ML VIAL As Ordered ONE; +ISOVUE-M 300 61% 15ML VIAL As Ordered ONE; +LIDOCAINE 1% SDV 30ML VIAL As Ordered ONE
--- NOTE | 2021-01-30 09:47 | REP ---
INDICATION: DX # [id number]. COMPARISON: None. TECHNIQUE: A single views. Twenty-five seconds of fluoroscopy time is reported. FINDINGS: A single last image hold fluoroscopically obtained spot radiograph(s) of the lumbar spine document(s) needle position(s) and contrast injection associated with injection procedure. IMPRESSION: Procedural imaging. <Electronically signed by Ted Hathaway > 01/30/21 0984
--- NOTE | 2021-01-30 23:56 | ECWPNPC ---
PATIENT NAME: TYE CLAUDIO : 1950 GENDER: MALE VISIT DATE: 01/30/2021 DISCHARGE DATE: 01/30/21 1001 VISIT LOCKED DATE TIME: PHYSICIAN: GARRETT MEDLEY MD RESOURCE: GARRETT MEDLEY MD REASON FOR APPOINTMENT 1. RIGHT LUMBAR DIAGNOSTIC FACET BLOCK #2 L4-L5, L5-S1 HISTORY OF PRESENT ILLNESS GENERAL: -. FALL RISK SCREENING: SCREENING : NO FALLS REPORTED IN THE LAST YEAR. PAIN SCREENING: PATIENT HAS A COMPLAINT OF ACUTE OR CHRONIC PAIN :YES LOCATION OF PAIN:LOW BACK RIGHT INTENSITY OF PAIN (SCALE OF 1 TO 10):8 WHAT DOES YOUR PAIN FEEL LIKE:ACHING, SHOOTING DURATION:CONTINOUS, MAINLY DURING THE DAY PAIN IS INCREASED BY:ACTIVITIES, PROLONGED STANDING, OTHERS WALKING PAIN IS DECREASED BY:SITTING, OTHERS LAYING DOWN, HEAT NURSING NOTE: -. PAIN CENTER INTAKE QUESTIONS: DO YOU HAVE A HISTORY OF MRSA? :NO DO YOU TAKE A BLOOD THINNERS? :NO DO YOU HAVE ANY BLEEDING DISORDERS? :NO ANY NEW NUMBNESS OR WEAKNESS IN YOUR LEGS OR ARMS? :NO ANY PACEMAKER,DEFIBRILLATOR, OR DORSAL COLUMN STIMULATOR? :NO DO YOU HAVE ANY RASHES OR OPEN SORES? :NO ARE YOU ALLERGIC TO IV DYE? :NO ARE YOU DIABETIC? :YES FSBS: 131 ANY NEW PROBLEMS WITH YOUR MEDICATIONS? :NO HAVE YOU RECEIVED A VACCINE IN THE PAST 30 DAYS? :NO DO YOU PLAN TO RECEIVE A VACCINE IN THE NEXT 21 DAYS? :NO DO YOU TAKE ANY IMMUNOSUPPRESSIVE MEDICATIONS? :NO ANY HISTORY OF SEIZURES? :NO ANY HISTORY OF CARDIAC ISSUES OR EVENTS? :NO DO YOU HAVE ANY KIDNEY OR LIVER DISEASE? :NO DO YOU HAVE SLEEP APNEA? :YES DO YOU WEAR A CPAP?YES ANY RECENT HEAD INJURY? :NO DO YOU HAVE ANY NEW INFECTIONS? :NO IS THERE A CHANCE YOU COULD BE ? :NO ARE YOU BREAST FEEDING? :NO WHEN DID YOU LAST EAT? : 01/29 2100 WHEN DID YOU LAST DRINK? : 01/30 06 WHAT DID YOU LAST DRINK? : ZINA BEASLEY NAME OF PERSON DRIVING YOU HOME? : KELECHI DO YOU HAVE ANY OTHER QUESTIONS OR CONCERNS? : NO CURRENT MEDICATIONS TAKING ASPIRIN 81 81 MG TABLET CHEWABLE 1 TABLET ORALLY ONCE A DAY TAKING ATENOLOL 100 MG TABLET 1 TABLET ORALLY ONCE A DAY, NOTES: 01/29 2200 TAKING CITALOPRAM HYDROBROMIDE 20 MG TABLET 1 TABLET ORALLY ONCE A DAY TAKING FLONASE 50 MCG/DOSE INHALER 1 SPRAY IN EACH NOSTRIL NASALLY ONCE A DAILY-TAKES NEEDED TAKING HYDROCHLOROTHIAZIDE 25 MG TABLET 1 TABLET IN THE MORNING ORALLY ONCE A DAY, NOTES: 01/29 AM TAKING NOVOLOG FLEXPEN 100 UNIT/ML SOLUTION PEN-INJECTOR SLIDING SCALE SUBCUTANEOUS , NOTES: 01/29 2200 TAKING LANTUS SOLOSTAR 100 UNIT/ML SOLUTION 60 UNITS SUBCUTANEOUS DAILY, NOTES: 01/29 2200 TAKING LISINOPRIL 40 MG TABLET 1 TABLET ORALLY ONCE A DAY, NOTES: 01/29 2200 TAKING PANTOPRAZOLE SODIUM 40 MG TABLET DELAYED RELEASE 1 TABLET ORALLY ONCE A DAY TAKING CRESTOR 20 MG TABLET 1 TABLET ORALLY ONCE A DAY TAKING METFORMIN HCL 850 MG TABLET 1 TABLET WITH MEALS ORALLY TWICE A DAY, NOTES: 01/29 2200 TAKING IBUPROFEN 600 MG TABLET 1 TABLET WITH FOOD OR MILK NEEDED ORALLY THREE TIMES A DAY, NOTES: 01/29 2200 TAKING ACETAMINOPHEN 325 MG CAPSULE 1 CAPSULE NEEDED ORALLY EVERY 4 HRS, NOTES: 01/29 2200 TAKING EMPAGLIFLOZIN 25 MG TABLET 1 TABLET ORALLY ONCE A DAY, NOTES: (JARDIANCE) 01/29 AM TAKING GABAPENTIN 600 MG TABLET 1 TABLET ORALLY Q8H TID, NOTES: 01/29 2200 TAKING VIT D-VIT E-SAFFLOWER OIL 1 CAP DAILY TAKING MULTI FOR HIM 50+ 1 CAP DAILY TAKING MIRALAX - PACKET 1 PACKET MIXED WITH 8 OUNCES OF FLUID ORALLY ONCE A DAY TAKING TIZANIDINE HCL 2 MG TABLET TAKE TWO TABLETS BY MOUTH AT BEDTIME ORAL , NOTES: 01/29 2200 TAKING CICLOPIROX 0.77 % GEL 1 APPLICATION EXTERNALLY TWICE A DAY TO FEET AND BACK RASH (USE LOTRIMIN ULTRA TO FEET MID-MORNING) NOT-TAKING CICLOPIROX 8 % SOLUTION 1 APPLICATION EXTERNALLY ONCE A DAY TO TOENAILS AT NIGHT MEDICATION LIST REVIEWED AND RECONCILED WITH THE PATIENT PAST MEDICAL HISTORY HYPERLIPIDEMIA HYPERTENSION DIABETES MELLITUS TYPE 2 ACID REFLUX ARTHRITIS ANKYLOSIS SPONDYLITIS/ ARTHRITIS HEALTH SPEC - SYRACUSE BACK PAIN TOUNGE CA ALLERGIES LIPITOR: MUSCLE PAIN - SIDE EFFECTS SOCIAL HISTORY GENERAL: TOBACCO USE ARE YOU A:NONSMOKER LATEX QUESTIONNAIRE LATEX ALLERGY : HAVE YOU EVER DEVELOPED ANY TYPE OF REACTION AFTER HANDLING LATEX PRODUCTS SUCH RUBBER GLOVES, CONDOMS, DIAPHRAGMS, BALLOONS, SOCKS, OR UNDERWEAR?NO LATEX ALLERGY : HAVE YOU EVER DEVELOPED ANY TYPE OF REACTION DURING OR AFTER DENTAL APPOINTMENT, VAGINAL/RECTAL EXAMINATION, SURGICAL PROCEDURE, OR ANY OTHER EXPOSURE?NO LATEX RISK : HAVE YOU EVER HAD ANY DIFFICULTY BREATHING OR HIVES AFTER EATING OR HANDLING ANY FRUITS, OR VEGETABLES; SUCH KIWI, BANANAS, STONE FRUITS, OR CHESTNUTSNO LATEX RISK : DO YOU HAVE A PREVIOUS PERSONAL HISTORY OF MORE THAN NINE SURGERIES, SPINA BIFIDA, OR REPEATED CATHERIZATIONS? NO LATEX RISK : ARE YOU FREQUENTLY EXPOSED TO LATEX PRODUCTS IN YOUR OCCUPATION?NO DATE ASKED : 01/23/2021 ALCOHOL USE: NO. ALCOHOL SCREENING DID YOU HAVE A DRINK CONTAINING ALCOHOL IN THE PAST YEAR?YES HOW OFTEN DID YOU HAVE SIX OR MORE DRINKS ON ONE OCCASION IN THE PAST YEAR?NEVER (0 POINTS) HOW MANY DRINKS DID YOU HAVE ON A TYPICAL DAY WHEN YOU WERE DRINKING IN THE PAST YEAR?1 OR 2 (0 POINTS) HOW OFTEN DID YOU HAVE A DRINK CONTAINING ALCOHOL IN THE PAST YEAR?TWO TO FOUR TIMES A MONTH (2 POINTS) POINTS2 INTERPRETATIONNEGATIVE RECREATIONAL DRUG USE DRUG USE?NO CAFFEINE CAFFEINE USE?YES COFFEE DAILY YARSANISM [id number] EPISCOPAL LANGUAGE LANGUAGES SPOKEN:UPPER SORBIAN LEARNING BARRIERS / SPECIAL NEEDS CHANGE FROM LAST VISIT?NO BARRIERS TO LEARNING?NO HEARING IMPAIRED?NO VISION IMPAIRED?YES :CORRECTIVE LENSES READING COGNITIVELY IMPAIRED?NO READINESS TO LEARN?YES LEARNING PREFERENCES?YES :DEMONSTRATION/VERBAL INSTRUCTION LEARNING CAPABILITIES PRESENT?YES EMOTIONAL BARRIERS?NO SPECIAL DEVICES?NO BODY COMPONENT ENGINEER NEEDED?NO DOMESTIC VIOLENCE DO YOU FEEL SAFE IN YOUR ENVIRONMENT?YES PATIENT DESCRIBES PAIN : ACHING, IT COMES AND GOES, SHARP, THROBBING, SHOOTING, FROM 0-10, WHAT LEVEL IS YOUR PAIN TODAY? 7, PRECIPITATING FACTORS ACTIVITY, WALKING, ALLEVIATING FACTORS REST, MEDICATIONS. - PFS REFERRAL NEEDED?NO CLERGY REFERRAL NEEDED?NO PUBLIC HEALTH REFERRAL NEEDED?NO WAS THE PROVIDER NOTIFIED OF ANY PERTINENT INFO? N/A HAS THE PATIENT BEEN EDUCATED REGARDING HIS/HER PLAN OF CARE?YES HAS THE PATIENT BEEN EDUCATED REGARDING PAIN, THE RISK FOR PAIN, THE IMPORTANCE OF EFFECTIVE PAIN MANAGEMENT, AND THE PAIN ASSESSMENT PROCESS?YES ADVANCE DIRECTIVE ADVANCE DIRECTIVE DISCUSSED WITH PATIENT:YES PT DOES NOT HAVE ANY ADVANCED DIRECTIVES AND HE DECLINES INFORMATION ON HCP AT THIS TIME, STATES THAT HE HAS THE INFORMATION AT HOME. ASSISTANCE OFFERED IN COMPLETING HCP IF NEEDED. VITAL SIGNS WT 248.8 LBS, HT 70 IN, BMI 35.70 INDEX, BP 117/62 MM HG, HR 53 /MIN, RR 18 /MIN, TEMP 97.0 F, OXYGEN SAT % 97%, BLOOD GLUCOSE LEVEL 131 THIS AM, SAFE IN ENV? (Y/N) YES, NA INITIALS SC 08:46, REVIEWED BY: Master AN SNOW PLOW OPERATOR. EXAMINATION GENERAL: A HISTORY AND PHYSICAL EXAM ON THE PATIENT WAS DONE ON 01/23/2021(DATE OF ORIGINAL ASSESSMENT) IN PREPARATION OF SURGERY/PROCEDURE. I HAVE NOW REASSESSED THIS PATIENT'S HEALTH STATUS AND PERFORMED AN UPDATED EXAM TODAY. ALL CHANGES IN THE PATIENT'S HISTORY, PHYSICAL EXAM, PRE-EXISTING CONDITONS, AND INDICATIONS/CONTRAINDICATIONS TO THE PLANNED PROCEDURE AND ANESTHESIA ARE DOCUMENTED AND EVALUATED BELOW. I ATTEST TO THE ADEQUACY AND APPROPRIATENESS OF MY ASSESSMENT, AND CONFIRM THE NECESSITY FOR THE PLANNED PROCEDURE. THE PATIENT IS ALERT, ORIENTED TIMES THREE AND COOPERATIVE. LUNGS ARE CLEAR TO AUSCULTATION. HEART SHOWS REGULAR RHYTHM, NO MURMURS AND NO GALLOPS. ASSESSMENTS SPONDYLOSIS WITHOUT MYELOPATHY OR RADICULOPATHY, LUMBAR REGION - M47.816 (PRIMARY) SPONDYLOSIS WITHOUT MYELOPATHY OR RADICULOPATHY, LUMBOSACRAL REGION - M47.817 TREATMENT SPONDYLOSIS WITHOUT MYELOPATHY OR RADICULOPATHY, LUMBAR REGION [facility] FACET BLOCK (PAIN)[id number] COMPLETION OF PROCEDURAL VISIT WHEN MEETS CRITERIA SPONDYLOSIS WITHOUT MYELOPATHY OR RADICULOPATHY, LUMBOSACRAL REGION SMC FACET BLOCK (PAIN)[id number] OTHERS NOTES: 01/29/21 1410 PAT COMPLETED. Delvin TAPIA RN. PROCEDURES PAIN NURSING RECORD PROCEDURE IN ROOM 0915, PHYSICIAN IN ROOM 0932, START 0937, FINISH 0941, PHYSICIAN OUT OF ROOM 0942, OUT OF ROOM 0945, ECG NORMAL SINUS SINUS BRADYCARDIA, PATIENT SHIELDED YES, SAFETY STRAP YES, PREP CHLOROPREP Master AN RN, DRESSING TEGADERM DR. MEDLEY LOC: HARRY ANISSA 01/30/2021 9:15:30 AM > 1. ALERT, ORIENTED LOC REMAINED AT BASELINE THROUGHOUT THE PROCEDURE RESP: HARRY ANISSA 01/30/2021 9:15:30 AM > 1. REGULAR, NO DYSPNEA COLOR: J CARLOS AN 01/30/2021 9:15:30 AM > 1. PINK SKIN: NATALIYAJ CARLOS 01/30/2021 9:15:30 AM > 1. WARM, DRY POSITION: J CARLOS AN 01/30/2021 9:15:30 AM > 1. PRONE VITALS: J CARLOS AN 01/30/2021 9:15:30 AM > 144/86, 51, 97% RA, 18. J CARLOS AN 01/30/2021 9:30:03 AM > 150/87, 51, 96% RA, 18. COMPLETION OF PROCEDURE APPOINTMENT: POST PAIN 0/10, DRESSING SITE DRY AND INTACT, IV N/A, GAIT STEADY, TEACHING COMPLETED, PATIENT ACKNOWLEDGES UNDERSTANDING YES PATIENT PROVIDED POST PROCEDURE PAIN DIARY, COVID SYMPTOM MONITORING INSTRUCTIONS AND POST PROCEDURE INSTRUCTIONS, HANDOUTS REVIEWED WITH PATIENT; PATIENT VERBALIZES UNDERSTANDING, NO QUESTIONS OR CONCERNS AT THIS TIME., PROCEDURE APPOINTMENT COMPLETED AT 1005 BY: Master AN RN. PN LUMBAR FACET BLOCK DIAGNOSTIC PRE PROCEDURE DIAGNOSIS LUMBAR SPONDYLOSIS, LUMBOSACRAL SPONDYLOSIS POST PROCEDURE DIAGNOSIS LUMBAR SPONDYLOSIS, LUMBOSACRAL SPONDYLOSIS PROCEDURE RIGHT L4-L5 AND RIGHT L5-S1 FACET BLOCK DIAGNOSTIC NUMBER [address] GARRETT MEDLEY BOGGER OPERATOR NONE ANESTHESIA LOCAL PRE PROCEDURE NOTE THE PATIENT WITH HISTORY OF CHRONIC LOW BACK PAIN. I EVALUATED THE PATIENT AND REVIEWED THE CHART. I WENT OVER THE RISKS, ALTERNATIVES, AND BENEFITS ASSOCIATED WITH THIS PROCEDURE. THE PATIENT WOULD LIKE TO PROCEED AND GAVE CONSENT TO PERFORM THE PROCEDURE. AGREED WITH THE PATIENT, WE ARE DOING THIS PROCEDURE TO DETERMINE IF THE PATIENT IS A CANDIDATE FOR A RADIOFREQUENCY ABLATION OF THE FACETS JOINTS. THE PATIENT DENIES UNEXPLAINABLE WEIGHT LOSS, FEVER, CHILLS, OR NEW CHANGES IN URINARY OR BOWEL CONTROL. THE PATEINT IS COVID-19 NEGATIVE. THE PATIENT HAD A RADIOFREQUENCY RIGHT L4-L5, L5-S1 ON 08/21/2019 DESCRIPTION OF PROCEDURE THE PATIENT WAS BROUGHT TO THE PROCEDURE ROOM AND PLACED IN THE PRONE POSITION. THE LUMBOSACRAL AREA WAS CLEANED WITH CHLORAPREP SOLUTION AND DRAPED ASEPTICALLY. THE PROCEDURE WAS DONE UNDER STERILE CONDITIONS. A TIMEOUT WAS PERFORMED WHERE THE CONSENTED SITE WAS VERIFIED WITH EVERYONE IN THE ROOM. UNDER FLUOROSCOPIC GUIDANCE, TARGETS WERE SELECTED AT THE INTERSECTION OF THE RIGHT TRANSVERSE PROCESS OF L4, L5 AND ALA OF S1 WITH ITS RESPECTIVE SUPERIOR ARTICULAR PROCESS WITH A TARGET OF THE MEDIAN BRANCHES OF L3, L4 AND THE DORSAL RAMI OF L5. I CONFIRMED AGAIN THE SITE OF TARGET. LIDOCAINE WAS USED TO NUMB THE SKIN AND THE SUBCUTANEOUS TISSUE BELOW IT. SPINAL NEEDLE, 22-GAUGE, WAS ADVANCED UNDER FLUOROSCOPIC GUIDANCE AND FOLLOWING PATIENT FEEDBACK UNTIL THE TARGETS WERE REACHED. POSITION OF THE NEEDLES WAS VERIFIED WITH AP AND LATERAL VIEWS. AFTER PROPER POSITION OF THE NEEDLES WAS ACHIEVED, ISOVUE-M DYE 30%, 0.1 ML, WAS INJECTED AT EACH SITE SHOWING ADEQUATE SPREAD OF THE DYE. THEN, A SOLUTION OF 0.4 ML OF BUPIVACAINE 0.25% WAS INJECTED AT EACH SITE. THE MEDICATIONS WERE VERIFIED WITH THE NURSE. THERE WAS NO EVIDENCE OF BLOOD, PARESTHESIA OR CEREBROSPINAL FLUID DURING THE PROCEDURE. THE PATIENT WAS SENT TO THE RECOVERY ROOM. THE PATIENT WAS MOVING THE EXTREMITIES AND DOING WELL. THERE WERE NO COMPLICATIONS DURING THE PROCEDURE. ESTIMATED BLOOD LOSS WAS LESS THAN 5 ML. FLUOROSCOPY TIME WAS 24 SECONDS POST PROCEDURE NOTE THE PATIENT WILL DOCUMENT THE PAIN LEVEL AND RESPONSE TO THIS PROCEDURE PER PAIN DIARY. THE PATIENT WILL BE SEEN IN A FOLLOW UP IN THE NEXT FEW WEEKS. FURTHER DETERMINATION FOR THE PATIENT'S CASE WILL BE DONE AT THE NEXT VISIT. INSTRUCTIONS WERE GIVEN, QUESTIONS WERE ANSWERED, AND THE PATIENT EXPRESSED UNDERSTANDING AND AGREED WITH THE PLAN. I, MELQUIADES GONCALVES, DOCUMENTED THE ABOVE INFORMATION ACTING A SCRIBE FOR DR. MEDLEY. I HAVE REVIEWED THE ABOVE DOCUMENT, WRITTEN BY MELQUIADES GONCALVES, BALLOON TESTER, AND I VERIFY THAT IT IS ACCURATE PROCEDURE CODES 66103 INJ PARAVERT F JNT L/S 1 LEV, MODIFIERS: [place] [address] INJ PARAVERT F JNT L/S 2 LEV, MODIFIERS: RT DISPOSITION & COMMUNICATION FOLLOW UP FOLLOW UP WITH CUSTOMER ACCOUNTS ADVISOR (REASON: POST RIGHT LUMBAR FACET BLOCK #2 L4-L5, L5-S1) ELECTRONICALLY SIGNED BY GARRETT MEDLEY MD, MD ON 01/30/2021 AT 05:35 PM EDT DISCLAIMER : THIS IS A VISIT SUMMARY EXTRACTED FROM THE [employer] CHART. IT IS NOT A COPY OF THE [employer] PROGRESS NOTE. MYLAD
== END ==
LOC: M PAIN 08:30
PROVIDERS: ATTEND Anesthesiology
DX: M47.816 Spondylosis without myelopathy or radiculopathy, lumbar region (principal); M47.817 Spondylosis without myelopathy or radiculopathy, lumbosacral region; E78.5 Hyperlipidemia, unspecified; I10 Essential (primary) hypertension; E11.9 Type 2 diabetes mellitus without complications; K21.9 Gastro-esophageal reflux disease without esophagitis; M45.9 Ankylosing spondylitis of unspecified sites in spine; Z85.810 Personal history of malignant neoplasm of tongue; Z79.82 Long term (current) use of aspirin; Z79.899 Other long term (current) 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; Z79.4 Long term (current) use of insulin; Z88.8 Allergy status to other drugs, medicaments and biological substances
CPT/HCPCS: 64493; 64494; Q9967

== ENCOUNTER → 2021-02-06 | Outpatient (CLI) | payer MEDICARE, OTHER ==
[~2021-02-06] MED LIST changes: -BUPIVACAINE HCL 0.25% 30ML VIAL As Ordered ONE; -ISOVUE-M 300 61% 15ML VIAL As Ordered ONE; -LIDOCAINE 1% SDV 30ML VIAL As Ordered ONE
--- NOTE | 2021-02-08 02:50 | ECWPNPC ---
PATIENT NAME: TYE CLAUDIO : 1950 GENDER: MALE VISIT DATE: 02/06/2021 DISCHARGE DATE: 02/06/21 1109 VISIT LOCKED DATE TIME: PHYSICIAN: LULY JOHNSON RESOURCE: LULY JOHNSON REASON FOR APPOINTMENT 1. POST RIGHT LUMBAR DIAGNOSTIC FACET BLOCK #2 L4-L5, L5-S1 HISTORY OF PRESENT ILLNESS GENERAL: HPI 70-YEAR-OLD MALE IN FOR POST DIAGNOSTIC LUMBAR FACET BLOCK FOLLOW-UP. PATIENT FEELS THE PROCEDURE WAS SUCCESSFUL OVERALL RATING HIS PAIN PREPROCEDURE AT AN 8 OUT OF 10 AND POSTPROCEDURE AT A 0-3 OUT OF 10 X 4 HOURS. HE RATES HIS PAIN CURRENTLY AT A 6 OUT OF 10.. -. FALL RISK SCREENING: SCREENING : NO FALLS REPORTED IN THE LAST YEAR. PAIN SCREENING: PATIENT HAS A COMPLAINT OF ACUTE OR CHRONIC PAIN :YES LOCATION OF PAIN:LOW BACK INTENSITY OF PAIN (SCALE OF 1 TO 10):6 VARIES BETWEEN A 6-9 DEPENDING UPON ACTIVITIES. WHAT DOES YOUR PAIN FEEL LIKE:ACHING, CONTINOUS, STABBING DURATION:CONTINOUS, CONSTANT PAIN IS INCREASED BY:ACTIVITIES, PROLONGED STANDING PAIN IS DECREASED BY:USE OF PAIN MEDICATIONS, SITTING, OTHERS MASSAGES. NURSING NOTE: -. PAIN CENTER INTAKE QUESTIONS: DO YOU HAVE A HISTORY OF MRSA? :NO DO YOU TAKE A BLOOD THINNERS? :NO DO YOU HAVE ANY BLEEDING DISORDERS? :NO ANY NEW NUMBNESS OR WEAKNESS IN YOUR LEGS OR ARMS? :NO ANY PACEMAKER,DEFIBRILLATOR, OR DORSAL COLUMN STIMULATOR? :NO DO YOU HAVE ANY RASHES OR OPEN SORES? :NO ARE YOU ALLERGIC TO IV DYE? :NO ARE YOU DIABETIC? :YES ANY NEW PROBLEMS WITH YOUR MEDICATIONS? :NO HAVE YOU RECEIVED A VACCINE IN THE PAST 30 DAYS? :NO DO YOU PLAN TO RECEIVE A VACCINE IN THE NEXT 21 DAYS? :NO DO YOU NEED ANY PRESCRIPTION? :NO DO YOU TAKE ANY IMMUNOSUPPRESSIVE MEDICATIONS? :NO DO YOU HAVE ANY KIDNEY OR LIVER DISEASE? :NO IS THERE A CHANCE YOU COULD BE ? :NO ARE YOU BREAST FEEDING? :NO CURRENT MEDICATIONS TAKING ASPIRIN 81 81 MG TABLET CHEWABLE 1 TABLET ORALLY ONCE A DAY TAKING ATENOLOL 100 MG TABLET 1 TABLET ORALLY ONCE A DAY TAKING CITALOPRAM HYDROBROMIDE 20 MG TABLET 1 TABLET ORALLY ONCE A DAY TAKING FLONASE 50 MCG/DOSE INHALER 1 SPRAY IN EACH NOSTRIL NASALLY ONCE A DAILY-TAKES NEEDED TAKING HYDROCHLOROTHIAZIDE 25 MG TABLET 1 TABLET IN THE MORNING ORALLY ONCE A DAY TAKING NOVOLOG FLEXPEN 100 UNIT/ML SOLUTION PEN-INJECTOR SLIDING SCALE SUBCUTANEOUS TAKING LANTUS SOLOSTAR 100 UNIT/ML SOLUTION 60 UNITS SUBCUTANEOUS DAILY TAKING LISINOPRIL 40 MG TABLET 1 TABLET ORALLY ONCE A DAY TAKING PANTOPRAZOLE SODIUM 40 MG TABLET DELAYED RELEASE 1 TABLET ORALLY ONCE A DAY TAKING CRESTOR 20 MG TABLET 1 TABLET ORALLY ONCE A DAY TAKING METFORMIN HCL 850 MG TABLET 1 TABLET WITH MEALS ORALLY TWICE A DAY TAKING IBUPROFEN 600 MG TABLET 1 TABLET WITH FOOD OR MILK NEEDED ORALLY THREE TIMES A DAY TAKING ACETAMINOPHEN 325 MG CAPSULE 1 CAPSULE NEEDED ORALLY EVERY 4 HRS TAKING EMPAGLIFLOZIN 25 MG TABLET 1 TABLET ORALLY ONCE A DAY, NOTES: (JARDIANCE) TAKING GABAPENTIN 600 MG TABLET 1 TABLET ORALLY Q8H TID TAKING VIT D-VIT E-SAFFLOWER OIL 1 CAP DAILY TAKING MULTI FOR HIM 50+ 1 CAP DAILY TAKING MIRALAX - PACKET 1 PACKET MIXED WITH 8 OUNCES OF FLUID ORALLY ONCE A DAY TAKING TIZANIDINE HCL 2 MG TABLET TAKE TWO TABLETS BY MOUTH AT BEDTIME ORAL TAKING CICLOPIROX 0.77 % GEL 1 APPLICATION EXTERNALLY TWICE A DAY TO FEET AND BACK RASH (USE LOTRIMIN ULTRA TO FEET MID-MORNING) NOT-TAKING CICLOPIROX 8 % SOLUTION 1 APPLICATION EXTERNALLY ONCE A DAY TO TOENAILS AT NIGHT MEDICATION LIST REVIEWED AND RECONCILED WITH THE PATIENT PAST MEDICAL HISTORY HYPERLIPIDEMIA HYPERTENSION DIABETES MELLITUS TYPE 2 ACID REFLUX ARTHRITIS ANKYLOSIS SPONDYLITIS/ ARTHRITIS HEALTH SPEC - SYRACUSE BACK PAIN TOUNGE CA ALLERGIES LIPITOR: MUSCLE PAIN - SIDE EFFECTS SURGICAL HISTORY LEFT KNEE SURGERY RIGHT FOOT BUNIONECTOMY TOUNGE CANCER TAKEN CARE OF BY DR. DENNIS 08/2020 SOCIAL HISTORY GENERAL: TOBACCO USE ARE YOU A:NONSMOKER LATEX QUESTIONNAIRE LATEX ALLERGY : HAVE YOU EVER DEVELOPED ANY TYPE OF REACTION AFTER HANDLING LATEX PRODUCTS SUCH RUBBER GLOVES, CONDOMS, DIAPHRAGMS, BALLOONS, SOCKS, OR UNDERWEAR?NO LATEX ALLERGY : HAVE YOU EVER DEVELOPED ANY TYPE OF REACTION DURING OR AFTER DENTAL APPOINTMENT, VAGINAL/RECTAL EXAMINATION, SURGICAL PROCEDURE, OR ANY OTHER EXPOSURE?NO LATEX RISK : HAVE YOU EVER HAD ANY DIFFICULTY BREATHING OR HIVES AFTER EATING OR HANDLING ANY FRUITS, OR VEGETABLES; SUCH KIWI, BANANAS, STONE FRUITS, OR CHESTNUTSNO LATEX RISK : DO YOU HAVE A PREVIOUS PERSONAL HISTORY OF MORE THAN NINE SURGERIES, SPINA BIFIDA, OR REPEATED CATHERIZATIONS? NO LATEX RISK : ARE YOU FREQUENTLY EXPOSED TO LATEX PRODUCTS IN YOUR OCCUPATION?NO DATE ASKED : 02/06/2021 ALCOHOL USE: NO. ALCOHOL SCREENING DID YOU HAVE A DRINK CONTAINING ALCOHOL IN THE PAST YEAR?YES HOW OFTEN DID YOU HAVE SIX OR MORE DRINKS ON ONE OCCASION IN THE PAST YEAR?NEVER (0 POINTS) HOW MANY DRINKS DID YOU HAVE ON A TYPICAL DAY WHEN YOU WERE DRINKING IN THE PAST YEAR?1 OR 2 (0 POINTS) HOW OFTEN DID YOU HAVE A DRINK CONTAINING ALCOHOL IN THE PAST YEAR?TWO TO FOUR TIMES A MONTH (2 POINTS) POINTS2 INTERPRETATIONNEGATIVE RECREATIONAL DRUG USE DRUG USE?NO CAFFEINE CAFFEINE USE?YES COFFEE DAILY [employer] [id number] AMISH LANGUAGE LANGUAGES SPOKEN:MALAY EDUCATION LEVEL OF EDUCATION:NOT FINISHED COLLEGE LEARNING BARRIERS / SPECIAL NEEDS CHANGE FROM LAST VISIT?NO BARRIERS TO LEARNING?NO HEARING IMPAIRED?NO VISION IMPAIRED?YES :CORRECTIVE LENSES READING COGNITIVELY IMPAIRED?NO READINESS TO LEARN?YES LEARNING PREFERENCES?YES :DEMONSTRATION/VERBAL INSTRUCTION LEARNING CAPABILITIES PRESENT?YES EMOTIONAL BARRIERS?NO SPECIAL DEVICES?NO DISTRIBUTION COORDINATOR NEEDED?NO DOMESTIC VIOLENCE DO YOU FEEL SAFE IN YOUR ENVIRONMENT?YES PATIENT DESCRIBES PAIN : ACHING, IT COMES AND GOES, SHARP, THROBBING, SHOOTING, FROM 0-10, WHAT LEVEL IS YOUR PAIN TODAY? 7, PRECIPITATING FACTORS ACTIVITY, WALKING, ALLEVIATING FACTORS REST, MEDICATIONS. - PFS REFERRAL NEEDED?NO CLERGY REFERRAL NEEDED?NO PUBLIC HEALTH REFERRAL NEEDED?NO WAS THE PROVIDER NOTIFIED OF ANY PERTINENT INFO? N/A HAS THE PATIENT BEEN EDUCATED REGARDING HIS/HER PLAN OF CARE?YES HAS THE PATIENT BEEN EDUCATED REGARDING PAIN, THE RISK FOR PAIN, THE IMPORTANCE OF EFFECTIVE PAIN MANAGEMENT, AND THE PAIN ASSESSMENT PROCESS?YES ADVANCE DIRECTIVE ADVANCE DIRECTIVE DISCUSSED WITH PATIENT:YES PT DOES NOT HAVE ANY ADVANCED DIRECTIVES AND HE DECLINES INFORMATION ON HCP AT THIS TIME, STATES THAT HE HAS THE INFORMATION AT HOME. ASSISTANCE OFFERED IN COMPLETING HCP IF NEEDED. HOSPITALIZATION/MAJOR DIAGNOSTIC PROCEDURE KNEE SURG DEHYDRATION AT [facility] 09/2019 REVIEW OF SYSTEMS CONSTITUTIONAL: ANY RECENT FEVER NO . CHILLS NO . WEIGHT CHANGE OF UNKNOWN REASONS NO . GASTROENTEROLOGY: NEW UNEXPLAINABLE CHANGES IN BOWEL CONTROL NO . CONSTIPATION NO . GENITOURINARY: ANY NEW CHANGE IN BLADDER CONTROL? NO . NEUROLOGY: NEW ONSET DIZZINESS OR NEUROLOGICAL CHANGES NOT MENTIONED NO . NEW NUMBNESS OR PAIN PATTERNS NOT MENTIONED AND PERTINENT TO TODAY'S VISIT NO . CARDIOLOGY: NEW CHEST PRESSURE NO . PATIENT DENIES NO . RESPIRATORY: UNEXPLAINABLE COUGH NO . NEW SHORTNESS OF BREATH NO . VITAL SIGNS WT 248.2 LBS, HT 70 IN, BMI 35.61 INDEX, BP 138/66 MM HG, HR 55 /MIN, RR 18 /MIN, TEMP 95.5 F, OXYGEN SAT % 96%, SAFE IN ENV? (Y/N) YES, NA INITIALS [place] 10:38, REVIEWED BY: BHAVNA LÓPEZ MA. EXAMINATION GENERAL EXAMINATION: GENERALNO ACUTE DISTRESS, WELL NOURISHED AND HYDRATED. PSYCHAPPROPRIATE MOOD AND AFFECT . LUNGS:CLEAR TO AUSCULTATION BILATERALLY, NO WHEEZES, RHONCHI, RALES. HEART:NO MURMURS, REGULAR RATE AND RHYTHM. BACK:PATIENT DOES ENDORSE INCREASED PAIN WITH FACET LOADING. POINT TENDER RIGHT LUMBAR REGION. ASSESSMENTS OTHER CHRONIC PAIN - G89.29 (PRIMARY) SPONDYLOSIS OF LUMBOSACRAL REGION WITHOUT MYELOPATHY OR RADICULOPATHY - M47.817, RISK: (NULL) TREATMENT OTHER CHRONIC PAIN PAIN PROCEDURE LOGDATE OF [id number]/27/2021ROCEDURE:RIGHT LUMBAR DIAGNOSTIC FACET BLOCK #2 L4-L5, L5-[id number] OF PRE SEDATE0/0RESULT:PRE 8/10 POST 0-3/10 X 4 HRS MEDICATION: VALIUM TAB 5MG ORALLY (DIAZEPAM) (ORDERED FOR 02/14/2021) MEDICATION: OXYCODONE HCL TAB 5MG ORALLY (ORDERED FOR 02/14/2021) NOTES: 70-YEAR-OLD MALE IN FOR POST DIAGNOSTIC FACET BLOCK FOLLOW-UP. GIVEN PRESENTING SYMPTOMS RECOMMEND LUMBAR COOL RADIOFREQUENCY L4-L5, L5-S1 WITH POSTPROCEDURAL FOLLOW UP. PATIENT HAS EXPRESSED UNDERSTANDING OF AND WAS IN AGREEMENT WITH TREATMENT PLAN.GIVEN TIME TO ASK QUESTIONS AND EXPRESS CONCERNS. CLINICAL NOTES: PREPROCEDURE AND PROCEDURE INFORMATION PRINTED AND PROVIDED TO PATIENT. PATIENT VERBALIZED AN UNDERSTANDING. BRODERICK LÓPEZ MA. PROCEDURE CODES FA211 ESTABILISHED PATIENT [facility] CHARGE DISPOSITION & COMMUNICATION FOLLOW UP POST PROCEDURE (REASON: RIGHT LUMBAR COOL RADIOFREQUENCY L4-L5,L5-S1) ELECTRONICALLY SIGNED BY MARIXA SANDRA ON 02/07/2021 AT 08:45 AM EDT DISCLAIMER : THIS IS A VISIT SUMMARY EXTRACTED FROM THE [employer] CHART. IT IS NOT A COPY OF THE [employer] PROGRESS NOTE. MYNOR
== END ==
LOC: M PAIN 10:30
PROVIDERS: ATTEND Family Medicine
DX: G89.29 Other chronic pain (principal); M47.817 Spondylosis without myelopathy or radiculopathy, lumbosacral region; E78.5 Hyperlipidemia, unspecified; I10 Essential (primary) hypertension; E11.9 Type 2 diabetes mellitus without complications; K21.9 Gastro-esophageal reflux disease without esophagitis; M45.9 Ankylosing spondylitis of unspecified sites in spine; Z85.810 Personal history of malignant neoplasm of tongue; Z79.82 Long term (current) use of aspirin; Z79.4 Long term (current) use of insulin; Z79.1 Long term (current) use of non-steroidal anti-inflammatories (NSAID); Z79.899 Other long term (current) 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; Z88.8 Allergy status to other drugs, medicaments and biological substances

== ENCOUNTER → 2021-03-11 | Outpatient (REF) | payer MEDICARE, OTHER ==
[2021-03-11 18:18] LABS: BILIRUBIN,TOTAL 0.4 MG/DL (0.2-1.0); CALCIUM LEVEL 9.6 MG/DL (8.8-10.2); CREATININE FOR GFR 1.49 MG/DL (0.70-1.30); GLOMERULAR FILTRATION RATE 49.2 (>42); POTASSIUM SERUM 4.9 MEQ/L (3.5-5.1)
== END ==
LOC: M LABDRWAD 16:24
PROVIDERS: ATTEND Family Medicine
DX: I10 Essential (primary) hypertension (principal)

== ENCOUNTER → 2021-03-13 | Outpatient (CLI) | payer MEDICARE, OTHER | LOC: M LABSMTC 10:04 | PROVIDERS: ATTEND Anesthesiology | DX: Z11.52 Encounter for screening for COVID-19 (principal) ==

== ENCOUNTER → 2021-03-18 | Outpatient (CLI) | payer MEDICARE, OTHER ==
[~2021-03-18] MED LIST changes: +BUPIVACAINE HCL 0.25% 30ML VIAL As Ordered ONE; +LIDOCAINE 1% SDV 30ML VIAL As Ordered ONE; +dexameTHASONE 10MG/1ML VIAL PRES.FREE (J1100 PER 1MG) As Ordered ONE; +diazePAM 5MG TABLET As Ordered ONE; +oxyCODONE 5MG TAB As Ordered ONE
--- NOTE | 2021-03-18 16:03 | REP ---
INDICATION: RIGHT LUMBAR COOL RADIOFREQUENCY. COMPARISON: None. TECHNIQUE: Nine views. 62.8 seconds of fluoroscopy time is reported. FINDINGS: A sequence of 9 last image hold fluoroscopically obtained spot radiograph(s) of the lumbar spine document(s) needle position(s) and contrast injection associated with injection procedure. IMPRESSION: Procedural imaging. <Electronically signed by Ted Hathaway > 03/18/21 1365
--- NOTE | 2021-03-22 06:43 | ECWPNPC ---
PATIENT NAME: TYE CLAUDIO : 1950 GENDER: MALE VISIT DATE: 03/18/2021 DISCHARGE DATE: 03/18/21 1610 VISIT LOCKED DATE TIME: PHYSICIAN: GARRETT MEDLEY MD RESOURCE: GARRETT MEDLEY MD REASON FOR APPOINTMENT 1. LUMBAR COOL RADIOFREQUENCY RIGHT L4-L5,L5-S1 HISTORY OF PRESENT ILLNESS GENERAL: -. FALL RISK SCREENING: SCREENING : NO FALLS REPORTED IN THE LAST YEAR. PAIN SCREENING: PATIENT HAS A COMPLAINT OF ACUTE OR CHRONIC PAIN :YES LOCATION OF PAIN:LOW BACK INTENSITY OF PAIN (SCALE OF 1 TO 10):7 VARIES BETWEEN A 6-9 DEPENDING UPON ACTIVITIES. WHAT DOES YOUR PAIN FEEL LIKE:ACHING, SHARP DURATION:INTERMITTENT PAIN IS INCREASED BY:ACTIVITIES, PROLONGED STANDING WALKING PAIN IS DECREASED BY:USE OF PAIN MEDICATIONS, SITTING, OTHERS MASSAGES. PLAN/GOALS/TREATMENT/INTERVENTION/FOLLOW UP:SEE PLAN NURSING NOTE: -. PAIN CENTER INTAKE QUESTIONS: DO YOU HAVE A HISTORY OF MRSA? :NO DO YOU TAKE A BLOOD THINNERS? :NO DO YOU HAVE ANY BLEEDING DISORDERS? :NO ANY NEW NUMBNESS OR WEAKNESS IN YOUR LEGS OR ARMS? :NO ANY PACEMAKER,DEFIBRILLATOR, OR DORSAL COLUMN STIMULATOR? :NO DO YOU HAVE ANY RASHES OR OPEN SORES? :NO ARE YOU ALLERGIC TO IV DYE? :NO ARE YOU DIABETIC? :YES FSBS: 162 ANY NEW PROBLEMS WITH YOUR MEDICATIONS? :NO HAVE YOU RECEIVED A VACCINE IN THE PAST 30 DAYS? :NO DO YOU PLAN TO RECEIVE A VACCINE IN THE NEXT 21 DAYS? :NO DO YOU TAKE ANY IMMUNOSUPPRESSIVE MEDICATIONS? :NO ANY HISTORY OF SEIZURES? :NO ANY HISTORY OF CARDIAC ISSUES OR EVENTS? :NO DO YOU HAVE ANY KIDNEY OR LIVER DISEASE? :NO DO YOU HAVE SLEEP APNEA? :YES DO YOU WEAR A CPAP?YES ANY RECENT HEAD INJURY? :NO DO YOU HAVE ANY NEW INFECTIONS? :NO IS THERE A CHANCE YOU COULD BE ? :NO ARE YOU BREAST FEEDING? :NO WHEN DID YOU LAST EAT? : 03/18/2021699 WHEN DID YOU LAST DRINK? : 03/18/2021699 WHAT DID YOU LAST DRINK? : BLACK COFFEE NAME OF PERSON DRIVING YOU HOME? : DAUGHTER DO YOU HAVE ANY OTHER QUESTIONS OR CONCERNS? : NO CURRENT MEDICATIONS TAKING ASPIRIN 81 81 MG TABLET CHEWABLE 1 TABLET ORALLY ONCE A DAY TAKING ATENOLOL 100 MG TABLET 1 TABLET ORALLY ONCE A DAY TAKING CITALOPRAM HYDROBROMIDE 20 MG TABLET 1 TABLET ORALLY ONCE A DAY TAKING FLONASE 50 MCG/DOSE INHALER 1 SPRAY IN EACH NOSTRIL NASALLY ONCE A DAILY-TAKES NEEDED TAKING HYDROCHLOROTHIAZIDE 25 MG TABLET 1 TABLET IN THE MORNING ORALLY ONCE A DAY TAKING NOVOLOG FLEXPEN 100 UNIT/ML SOLUTION PEN-INJECTOR SLIDING SCALE SUBCUTANEOUS TAKING LANTUS SOLOSTAR 100 UNIT/ML SOLUTION 60 UNITS SUBCUTANEOUS DAILY TAKING LISINOPRIL 40 MG TABLET 1 TABLET ORALLY ONCE A DAY TAKING PANTOPRAZOLE SODIUM 40 MG TABLET DELAYED RELEASE 1 TABLET ORALLY ONCE A DAY TAKING CRESTOR 20 MG TABLET 1 TABLET ORALLY ONCE A DAY TAKING METFORMIN HCL 850 MG TABLET 1 TABLET WITH MEALS ORALLY TWICE A DAY TAKING IBUPROFEN 600 MG TABLET 1 TABLET WITH FOOD OR MILK NEEDED ORALLY THREE TIMES A DAY TAKING ACETAMINOPHEN 325 MG CAPSULE 1 CAPSULE NEEDED ORALLY EVERY 4 HRS TAKING EMPAGLIFLOZIN 25 MG TABLET 1 TABLET ORALLY ONCE A DAY, NOTES: (JARDIANCE) TAKING GABAPENTIN 600 MG TABLET 1 TABLET ORALLY Q8H TID TAKING VIT D-VIT E-SAFFLOWER OIL 1 CAP DAILY TAKING MULTI FOR HIM 50+ 1 CAP DAILY TAKING MIRALAX - PACKET 1 PACKET MIXED WITH 8 OUNCES OF FLUID ORALLY ONCE A DAY TAKING TIZANIDINE HCL 2 MG TABLET TAKE TWO TABLETS BY MOUTH AT BEDTIME ORAL TAKING CICLOPIROX 0.77 % GEL 1 APPLICATION EXTERNALLY TWICE A DAY TO FEET AND BACK RASH (USE LOTRIMIN ULTRA TO FEET MID-MORNING) NOT-TAKING CICLOPIROX 8 % SOLUTION 1 APPLICATION EXTERNALLY ONCE A DAY TO TOENAILS AT NIGHT MEDICATION LIST REVIEWED AND RECONCILED WITH THE PATIENT PAST MEDICAL HISTORY HYPERLIPIDEMIA HYPERTENSION DIABETES MELLITUS TYPE 2 ACID REFLUX ARTHRITIS ANKYLOSIS SPONDYLITIS/ ARTHRITIS HEALTH SPEC - SYRACUSE BACK PAIN TOUNGE CA ALLERGIES LIPITOR: MUSCLE PAIN - SIDE EFFECTS SOCIAL HISTORY GENERAL: TOBACCO USE ARE YOU A:NONSMOKER LATEX QUESTIONNAIRE LATEX ALLERGY : HAVE YOU EVER DEVELOPED ANY TYPE OF REACTION AFTER HANDLING LATEX PRODUCTS SUCH RUBBER GLOVES, CONDOMS, DIAPHRAGMS, BALLOONS, SOCKS, OR UNDERWEAR?NO LATEX ALLERGY : HAVE YOU EVER DEVELOPED ANY TYPE OF REACTION DURING OR AFTER DENTAL APPOINTMENT, VAGINAL/RECTAL EXAMINATION, SURGICAL PROCEDURE, OR ANY OTHER EXPOSURE?NO LATEX RISK : HAVE YOU EVER HAD ANY DIFFICULTY BREATHING OR HIVES AFTER EATING OR HANDLING ANY FRUITS, OR VEGETABLES; SUCH KIWI, BANANAS, STONE FRUITS, OR CHESTNUTSNO LATEX RISK : DO YOU HAVE A PREVIOUS PERSONAL HISTORY OF MORE THAN NINE SURGERIES, SPINA BIFIDA, OR REPEATED CATHERIZATIONS? NO LATEX RISK : ARE YOU FREQUENTLY EXPOSED TO LATEX PRODUCTS IN YOUR OCCUPATION?NO DATE ASKED : 03/17/2021 ALCOHOL USE: NO. ALCOHOL SCREENING DID YOU HAVE A DRINK CONTAINING ALCOHOL IN THE PAST YEAR?YES HOW OFTEN DID YOU HAVE SIX OR MORE DRINKS ON ONE OCCASION IN THE PAST YEAR?NEVER (0 POINTS) HOW MANY DRINKS DID YOU HAVE ON A TYPICAL DAY WHEN YOU WERE DRINKING IN THE PAST YEAR?1 OR 2 (0 POINTS) HOW OFTEN DID YOU HAVE A DRINK CONTAINING ALCOHOL IN THE PAST YEAR?TWO TO FOUR TIMES A MONTH (2 POINTS) POINTS2 INTERPRETATIONNEGATIVE RECREATIONAL DRUG USE DRUG USE?NO CAFFEINE CAFFEINE USE?YES COFFEE DAILY [employer] [id number] [employer] LANGUAGE LANGUAGES SPOKEN:KHMER EDUCATION LEVEL OF EDUCATION:NOT FINISHED COLLEGE LEARNING BARRIERS / SPECIAL NEEDS CHANGE FROM LAST VISIT?NO BARRIERS TO LEARNING?NO HEARING IMPAIRED?NO VISION IMPAIRED?YES :CORRECTIVE LENSES READING COGNITIVELY IMPAIRED?NO READINESS TO LEARN?YES LEARNING PREFERENCES?YES :DEMONSTRATION/VERBAL INSTRUCTION LEARNING CAPABILITIES PRESENT?YES EMOTIONAL BARRIERS?NO SPECIAL DEVICES?NO CATTLE BROKER NEEDED?NO DOMESTIC VIOLENCE DO YOU FEEL SAFE IN YOUR ENVIRONMENT?YES PATIENT DESCRIBES PAIN : ACHING, IT COMES AND GOES, SHARP, THROBBING, SHOOTING, FROM 0-10, WHAT LEVEL IS YOUR PAIN TODAY? 7, PRECIPITATING FACTORS ACTIVITY, WALKING, ALLEVIATING FACTORS REST, MEDICATIONS. - PFS REFERRAL NEEDED?NO CLERGY REFERRAL NEEDED?NO PUBLIC HEALTH REFERRAL NEEDED?NO WAS THE PROVIDER NOTIFIED OF ANY PERTINENT INFO? N/A HAS THE PATIENT BEEN EDUCATED REGARDING HIS/HER PLAN OF CARE?YES HAS THE PATIENT BEEN EDUCATED REGARDING PAIN, THE RISK FOR PAIN, THE IMPORTANCE OF EFFECTIVE PAIN MANAGEMENT, AND THE PAIN ASSESSMENT PROCESS?YES ADVANCE DIRECTIVE ADVANCE DIRECTIVE DISCUSSED WITH PATIENT:YES PT DOES NOT HAVE ANY ADVANCED DIRECTIVES AND HE DECLINES INFORMATION ON HCP AT THIS TIME, STATES THAT HE HAS THE INFORMATION AT HOME. ASSISTANCE OFFERED IN COMPLETING HCP IF NEEDED. VITAL SIGNS WT 248.0 LBS, HT 70 IN, BMI 35.58 INDEX, BP 118/58 MM HG, HR 58 /MIN, RR 18 /MIN, TEMP 96.6 F, OXYGEN SAT % 94%, BLOOD GLUCOSE LEVEL 162, SAFE IN ENV? (Y/N) YES, NA INITIALS AW 1314, REVIEWED BY: Mahogany HUDSON RN. EXAMINATION GENERAL: THE PATIENT IS ALERT, ORIENTED TIMES THREE AND COOPERATIVE. LUNGS ARE CLEAR TO AUSCULTATION. HEART SHOWS REGULAR RHYTHM, NO MURMURS AND NO GALLOPS. ASSESSMENTS SPONDYLOSIS WITHOUT MYELOPATHY OR RADICULOPATHY, LUMBAR REGION - M47.816 (PRIMARY) SPONDYLOSIS WITHOUT MYELOPATHY OR RADICULOPATHY, LUMBOSACRAL REGION - M47.817 TREATMENT SPONDYLOSIS WITHOUT MYELOPATHY OR RADICULOPATHY, LUMBAR REGION COMPLETION OF PROCEDURAL VISIT WHEN MEETS CRITERIADEMELISSA CASTORENAITA 03/18/2021 4:45:55 PM > CRITERIA MET AT 1609 OTHERS NOTES: 03/17/21 PAT COMPLETED. 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 PROCEDURES PAIN NURSING RECORD PROCEDURE IN ROOM 1445, PHYSICIAN IN ROOM 1518, START 1521, FINISH 1545, PHYSICIAN OUT OF ROOM 1547, OUT OF ROOM 1555, ECG OTHER SINUS STEFFANY-DR. MEDLEY AWARE, PATIENT SHIELDED N/A, SAFETY STRAP N/A, PREP CHLOROPREP, DRESSING TEGADERM DR. MEDLEY LOC: AMENA,SIDNEY 03/18/2021 2:16:08 PM > 1. ALERT, ORIENTED AMENA,SIDNEY 03/18/2021 4:05:18 PM > 1. ALERT, ORIENTED RESP: AMENA,SIDNEY 03/18/2021 2:16:11 PM > 1. REGULAR, NO DYSPNEA AMENA,SIDNEY 03/18/2021 4:05:24 PM > 1. REGULAR, NO DYSPNEA COLOR: AMENA,SIDNEY 03/18/2021 2:16:17 PM > 1. PINK AMENA,SIDNEY 03/18/2021 4:05:29 PM > 1. PINK SKIN: AMENA,SIDNEY 03/18/2021 2:16:23 PM > 1. WARM, DRY AMENA,SIDNEY 03/18/2021 4:05:34 PM > 1. WARM, DRY POSITION: AMENA,SIDNEY 03/18/2021 2:45:23 PM > 1. PRONE AMENA,SIDNEY 03/18/2021 4:05:38 PM > 5. SITTING VITALS: 1400 P 51 0295 R18 BP111/60 AW 1415 P51 0294 R18 BP124/66 AW 1430 P51 0292 R18 BP118/62 AW MELISSA BECKWITHITA 03/18/2021 2:50:39 PM > 129/72,52,16,97% AMENA,SIDNEY 03/18/2021 2:56:13 PM > 124/65,50,16,94% AMENA,SIDNEY 03/18/2021 3:11:51 PM > 126/67,51,16,93% AMENA,SIDNEY 03/18/2021 3:26:07 PM > 148/85,53.16,96% AMENA,SIDNEY 03/18/2021 3:41:21 PM > 131/72,52,18,95% AMENA,SIDNEY 03/18/2021 3:51:51 PM > 132/76,55,18,93% AMENA,SIDNEY 03/18/2021 4:02:53 PM > 145/70,56,16,98% COMPLETION OF PROCEDURE APPOINTMENT: POST PAIN 0, DRESSING SITE DRY AND INTACT, IV N/A, GAIT STEADY, TEACHING COMPLETED, PATIENT ACKNOWLEDGES UNDERSTANDING YES, PROCEDURE APPOINTMENT COMPLETED AT 1609 BY: Wagner BECKWITH RN PN RADIOFREQUENCY DATE OF PROCEDURE 03/18/2021 THERMO LESION RADIOFREQUENCY > 80 DEGREES : [employer] - [employer] SYSTEM SET AT 60* WITH TISSUE TARGET TEMP > 80* OR MORE. STRAIGHT NEEDLE SIDE: : RIGHT LEVELS: : L4-L5, L5-S1 NEEDLE/CATHETER/GAUGE: : 17 CANULA LENGTH: : 150 MM ACTIVE TIP: : 4 MM GROUNDING PAD PLACED ON AFFECTED SIDE (MUSCULAR AREA): : LUMBAR (POSTERIOR UPPER THIGH) 1 ST LEVEL: : L3, INITAL POSTIVE SENSORY RESPONE (50 HZ) 0.4, MOTOR RESPONSE (2 HZ-UP TO 3 VOLTS) 3.0, PRE-LOCAL IMPEDENCE READING OHMS 260, POST-LOCAL IMPEDENCE READING OHMS 285, DURING RF IMPEDENCE READING OHMS 250 2 ND LEVEL: : L4, INITIAL POSITIVE SENSORY RESPONSE (50 HZ) 0.6, MOTOR RESPONSE (2 HZ- UP TO 3 VOLTS) 3.0, PRE-LOCAL IMPEDENCE READING OHMS 761, POST-LOCAL IMEPEDENCE READING OHMS 286, DURING RF IMPEDENCE READING OHMS [address] LEVEL: : L5, INITIAL POSITIVE SENSORY RESPONSE (50 HZ) 0.2, MOTOR RESPONSE (2HZ- UP TO 3 VOLTS) 3.0, PRE- LOCAL IMPEDENCE READING OHMS 466, POST-LOCAL IMPEDENCE READING OHMS 404, DURING RF IMPEDENCE READING OHMS 449 PRE PROCEDURE DIAGNOSES 1. LUMBAR SPONDYLOSIS. 2. LUMBOSACRAL SPONDYLOSIS POST PROCEDURE DIAGNOSES 1. LUMBAR SPONDYLOSIS. 2. LUMBOSACRAL SPONDYLOSIS PROCEDURE RIGHT L4-L5 AND RIGHT L5-S1 LUMBAR FACET RADIOFREQUENCY AVANOS COOL RADIOFREQUENCY SURGEON DR. GARRETT MEDLEY BEVERAGE MANAGER NONE ANESTHESIA LOCAL PRE PROCEDURE REPORT THE PATIENT HAS HISTORY OF CHRONIC LOW BACK PAIN. I EVALUATED THE PATIENT AND REVIEWED THE CHART. I WENT OVER THE RISKS, ALTERNATIVES, AND BENEFITS ASSOCIATED WITH THIS PROCEDURE. THE PATIENT WOULD LIKE TO PROCEED AND GAVE CONSENT TO PERFORM THE PROCEDURE. THE PATIENT DENIES UNEXPLAINABLE WEIGHT LOSS, FEVER, CHILLS OR NEW CHANGES IN URINARY OR BOWEL CONTROL. THE PATIENT IS COVID-19 NEGATIVE DESCRIPTION OF PROCEDURE THE PATIENT WAS BROUGHT TO THE PROCEDURE ROOM AND PLACED IN THE PRONE POSITION. A TIMEOUT WAS PERFORMED WHERE THE CONSENTED SITE WAS VERIFIED WITH EVERYONE IN THE ROOM. THE LUMBOSACRAL AREA WAS CLEANED WITH CHLORAPREP SOLUTION AND DRAPED ASEPTICALLY. THE PROCEDURE WAS DONE UNDER STERILE CONDITIONS. UNDER FLUOROSCOPIC GUIDANCE, TARGETS WERE SELECTED AT THE INTERSECTION OF THE RIGHT TRANSVERSE PROCESS OF L4, L5 AND ALA OF S1 WITH ITS RESPECTIVE SUPERIOR ARTICULAR PROCESS. I CONFIRMED AGAIN THE SITE OF TARGET. LIDOCAINE WAS USED TO NUMB THE SKIN AND THE SUBCUTANEOUS TISSUE BELOW IT. RADIOFREQUENCY CANNULAS, 17-GAUGE,150 MM LONG WITH 4 MM ACTIVE TIP, WERE ADVANCED UNDER FLUOROSCOPIC GUIDANCE AND FOLLOWING PATIENT FEEDBACK UNTIL THE TARGET AREA WAS REACHED. POSITION OF THE CANNULA WAS VERIFIED WITH AP AND LATERAL VIEWS. AFTER PROPER POSITION OF THE CANNULA WAS ACHIEVED, WE WORKED WITH THE RIGHT SELECTED MEDIAN BRANCHES OF L3, L4 AND THE DORSAL RAMI OF L5. WE MEASURED THE CORRESPONDING IMPEDANCES AND MOTOR RESPONSES INDICATED IN THE RADIOFREQUENCY WORK SHEET. POSITION OF THE CANNULA WAS VERIFIED AGAIN WITH AP AND LATERAL VIEWS. LIDOCAINE 1%, 2 ML, WAS INJECTED AT EACH LEVEL. RADIOFREQUENCY WAS DONE AT EACH LEVEL USING THE [employer] SYSTEM-- COOLED RF-- WITH A SETTING AT THE MACHINE OF 60 DEGREES WITH A TARGET TISSUE TEMPERATURE OF 80 TO 90 DEGREES FOR A MINIMUM OF 150 SECONDS. AFTER RADIOFREQUENCY WAS DONE, THE PATIENT RECEIVED BUPIVACAINE 0.125%,1 ML, WITH DEXAMETHASONE 3 MG AT EACH SITE. THERE WAS NO EVIDENCE OF BLOOD, PARESTHESIA OR CEREBROSPINAL FLUID DURING THE PROCEDURE. THE PATIENT WAS SENT TO THE RECOVERY ROOMS. THE PATIENT WAS MOVING THE EXTREMITIES AND DOING WELL. EBL LESS THAN 5 ML. THERE WERE NO COMPLICATIONS DURING THE PROCEDURE. FLUOROSCOPY TIME WAS 1 MINUTE 2 SECONDS POST PROCEDURE NOTE THE PATIENT WILL BE SEEN IN A FOLLOW UP IN THE NEXT FEW WEEKS. INSTRUCTIONS WERE GIVEN, QUESTIONS WERE ANSWERED, AND THE PATIENT EXPRESSED UNDERSTANDING AND AGREES WITH THE PLAN. . I, MELQUIADES GONCALVES, DOCUMENTED THE ABOVE INFORMATION ACTING A SCRIBE FOR DR. MEDLEY. I HAVE REVIEWED THE ABOVE DOCUMENT, WRITTEN BY MARCELLA CHOPRA, AND I VERIFY THAT IT IS [facility] FACET BLOCK (PAIN)[id number] PROCEDURE CODES 36101 DESTROY LUMB/SAC FACET JNT, MODIF[place]: [place] [id number] DESTROY L/S FACET JNT ADDL, MODIFIERS: RT DISPOSITION & COMMUNICATION FOLLOW UP FOLLOW UP WITH [facility] [employer] [facility] (REASON: POST RIGHT LUMBAR COOL RADIOFREQUENCY L4-L5, L5-S1) ELECTRONICALLY SIGNED BY GARRETT MEDLEY MD, MD ON 03/21/2021 AT 09:40 AM EDT DISCLAIMER : THIS IS A VISIT SUMMARY EXTRACTED FROM THE [employer] CHART. IT IS NOT A COPY OF THE [employer] PROGRESS NOTE. MYNOR
== END ==
LOC: M PAIN 13:00
PROVIDERS: ATTEND Anesthesiology
DX: M47.816 Spondylosis without myelopathy or radiculopathy, lumbar region (principal); M47.817 Spondylosis without myelopathy or radiculopathy, lumbosacral region; E78.5 Hyperlipidemia, unspecified; I10 Essential (primary) hypertension; E11.9 Type 2 diabetes mellitus without complications; K21.9 Gastro-esophageal reflux disease without esophagitis; Z79.82 Long term (current) use of aspirin; Z79.4 Long term (current) use of insulin; Z79.899 Other long term (current) 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; Z88.8 Allergy status to other drugs, medicaments and biological substances
CPT/HCPCS: 64635; 64636; J1100

== ENCOUNTER → 2021-04-02 | Outpatient (CLI) | payer MEDICARE, OTHER ==
[~2021-04-02] MED LIST changes: -BUPIVACAINE HCL 0.25% 30ML VIAL As Ordered ONE; -LIDOCAINE 1% SDV 30ML VIAL As Ordered ONE; -dexameTHASONE 10MG/1ML VIAL PRES.FREE (J1100 PER 1MG) As Ordered ONE; -diazePAM 5MG TABLET As Ordered ONE; -oxyCODONE 5MG TAB As Ordered ONE
--- NOTE | 2021-04-04 03:59 | ECWPNPC ---
PATIENT NAME: TYE CLAUDIO : 1950 GENDER: MALE VISIT DATE: 04/02/2021 DISCHARGE DATE: 04/02/21 1014 VISIT LOCKED DATE TIME: PHYSICIAN: LULY JOHNSON RESOURCE: LULY JOHNSON REASON FOR APPOINTMENT 1. POST RIGHT LUMBAR COOL RADIOFREQUENCY L4-L5,L5-S1 HISTORY OF PRESENT ILLNESS GENERAL: HPI 71-YEAR-OLD MALE IN FOR POST RIGHT LUMBAR CORE RADIOFREQUENCY FOLLOW-UP. PATIENT FEELS THE PROCEDURE WAS SUCCESSFUL OVERALL RATING HIS PAIN PREPROCEDURE AT A 9 OUT OF 10 AND POST PROCEDURE AT A 0-2 OUT OF 10. HE FURTHER STATES THE PROCEDURE CONTINUES TO HELP HIM TODAY.. -. FALL RISK SCREENING: SCREENING : NO FALLS REPORTED IN THE LAST YEAR. PAIN SCREENING: PATIENT HAS A COMPLAINT OF ACUTE OR CHRONIC PAIN :YES LOCATION OF PAIN:LOW BACK INTENSITY OF PAIN (SCALE OF 1 TO 10):2 WHAT DOES YOUR PAIN FEEL LIKE:SORE, OTHER TIGHTNESS DURATION:STEADY, INTERMITTENT PAIN IS INCREASED BY:ACTIVITIES, PROLONGED STANDING PAIN IS DECREASED BY:USE OF PAIN MEDICATIONS, SITTING, OTHERS LAYING DOWN NURSING NOTE: -. PAIN CENTER INTAKE QUESTIONS: DO YOU HAVE A HISTORY OF MRSA? :NO DO YOU TAKE A BLOOD THINNERS? :NO DO YOU HAVE ANY BLEEDING DISORDERS? :NO ANY NEW NUMBNESS OR WEAKNESS IN YOUR LEGS OR ARMS? :NO ANY PACEMAKER,DEFIBRILLATOR, OR DORSAL COLUMN STIMULATOR? :NO DO YOU HAVE ANY RASHES OR OPEN SORES? :NO ARE YOU ALLERGIC TO IV DYE? :NO ARE YOU DIABETIC? :YES ANY NEW PROBLEMS WITH YOUR MEDICATIONS? :NO HAVE YOU RECEIVED A VACCINE IN THE PAST 30 DAYS? :NO DO YOU PLAN TO RECEIVE A VACCINE IN THE NEXT 21 DAYS? :NO DO YOU NEED ANY PRESCRIPTION? :NO DO YOU TAKE ANY IMMUNOSUPPRESSIVE MEDICATIONS? :NO DO YOU HAVE ANY KIDNEY OR LIVER DISEASE? :NO IS THERE A CHANCE YOU COULD BE ? :NO ARE YOU BREAST FEEDING? :NO CURRENT MEDICATIONS TAKING ASPIRIN 81 81 MG TABLET CHEWABLE 1 TABLET ORALLY ONCE A DAY TAKING ATENOLOL 100 MG TABLET 1 TABLET ORALLY ONCE A DAY TAKING CITALOPRAM HYDROBROMIDE _ TABLET 30 MG 1 TABLET ORALLY ONCE A DAY TAKING FLONASE 50 MCG/DOSE INHALER 1 SPRAY IN EACH NOSTRIL NASALLY ONCE A DAILY-TAKES NEEDED TAKING HYDROCHLOROTHIAZIDE 25 MG TABLET 1 TABLET IN THE MORNING ORALLY ONCE A DAY TAKING NOVOLOG FLEXPEN 100 UNIT/ML SOLUTION PEN-INJECTOR SLIDING SCALE SUBCUTANEOUS TAKING LANTUS SOLOSTAR 100 UNIT/ML SOLUTION 60 UNITS SUBCUTANEOUS DAILY TAKING LISINOPRIL 40 MG TABLET 1 TABLET ORALLY ONCE A DAY TAKING PANTOPRAZOLE SODIUM 40 MG TABLET DELAYED RELEASE 1 TABLET ORALLY ONCE A DAY TAKING CRESTOR 20 MG TABLET 1 TABLET ORALLY ONCE A DAY TAKING METFORMIN HCL 850 MG TABLET 1 TABLET WITH MEALS ORALLY TWICE A DAY TAKING IBUPROFEN 600 MG TABLET 1 TABLET WITH FOOD OR MILK NEEDED ORALLY THREE TIMES A DAY TAKING ACETAMINOPHEN 325 MG CAPSULE 1 CAPSULE NEEDED ORALLY EVERY 4 HRS TAKING EMPAGLIFLOZIN 25 MG TABLET 1 TABLET ORALLY ONCE A DAY, NOTES: (JARDIANCE) TAKING GABAPENTIN 600 MG TABLET 1 TABLET ORALLY Q8H TID TAKING VIT D-VIT E-SAFFLOWER OIL 1 CAP DAILY TAKING MULTI FOR HIM 50+ 1 CAP DAILY TAKING MIRALAX - PACKET 1 PACKET MIXED WITH 8 OUNCES OF FLUID ORALLY ONCE A DAY TAKING TIZANIDINE HCL 2 MG TABLET TAKE TWO TABLETS BY MOUTH AT BEDTIME ORAL TAKING CICLOPIROX 0.77 % GEL 1 APPLICATION EXTERNALLY TWICE A DAY TO FEET AND BACK RASH (USE LOTRIMIN ULTRA TO FEET MID-MORNING) NOT-TAKING CICLOPIROX 8 % SOLUTION 1 APPLICATION EXTERNALLY ONCE A DAY TO TOENAILS AT NIGHT MEDICATION LIST REVIEWED AND RECONCILED WITH THE PATIENT PAST MEDICAL HISTORY HYPERLIPIDEMIA HYPERTENSION DIABETES MELLITUS TYPE 2 ACID REFLUX ARTHRITIS ANKYLOSIS SPONDYLITIS/ ARTHRITIS HEALTH SPEC - [place] BACK PAIN TOUNGE CA ALLERGIES LIPITOR: MUSCLE PAIN - SIDE EFFECTS SOCIAL HISTORY GENERAL: TOBACCO USE ARE YOU A:NONSMOKER LATEX QUESTIONNAIRE LATEX ALLERGY : HAVE YOU EVER DEVELOPED ANY TYPE OF REACTION AFTER HANDLING LATEX PRODUCTS SUCH RUBBER GLOVES, CONDOMS, DIAPHRAGMS, BALLOONS, SOCKS, OR UNDERWEAR?NO LATEX ALLERGY : HAVE YOU EVER DEVELOPED ANY TYPE OF REACTION DURING OR AFTER DENTAL APPOINTMENT, VAGINAL/RECTAL EXAMINATION, SURGICAL PROCEDURE, OR ANY OTHER EXPOSURE?NO LATEX RISK : HAVE YOU EVER HAD ANY DIFFICULTY BREATHING OR HIVES AFTER EATING OR HANDLING ANY FRUITS, OR VEGETABLES; SUCH KIWI, BANANAS, STONE FRUITS, OR CHESTNUTSNO LATEX RISK : DO YOU HAVE A PREVIOUS PERSONAL HISTORY OF MORE THAN NINE SURGERIES, SPINA BIFIDA, OR REPEATED CATHERIZATIONS? NO LATEX RISK : ARE YOU FREQUENTLY EXPOSED TO LATEX PRODUCTS IN YOUR OCCUPATION?NO DATE ASKED : 04/02/2021 ALCOHOL USE: NO. ALCOHOL SCREENING DID YOU HAVE A DRINK CONTAINING ALCOHOL IN THE PAST YEAR?YES HOW OFTEN DID YOU HAVE SIX OR MORE DRINKS ON ONE OCCASION IN THE PAST YEAR?NEVER (0 POINTS) HOW MANY DRINKS DID YOU HAVE ON A TYPICAL DAY WHEN YOU WERE DRINKING IN THE PAST YEAR?1 OR 2 (0 POINTS) HOW OFTEN DID YOU HAVE A DRINK CONTAINING ALCOHOL IN THE PAST YEAR?TWO TO FOUR TIMES A MONTH (2 POINTS) POINTS2 INTERPRETATIONNEGATIVE RECREATIONAL DRUG USE DRUG USE?NO CAFFEINE CAFFEINE USE?YES COFFEE DAILY GNOSTICISM [id number] PENTECOSTALISM LANGUAGE LANGUAGES SPOKEN:LAO EDUCATION LEVEL OF EDUCATION:NOT FINISHED COLLEGE LEARNING BARRIERS / SPECIAL NEEDS CHANGE FROM LAST VISIT?NO BARRIERS TO LEARNING?NO HEARING IMPAIRED?NO VISION IMPAIRED?YES :CORRECTIVE LENSES READING COGNITIVELY IMPAIRED?NO READINESS TO LEARN?YES LEARNING PREFERENCES?YES :DEMONSTRATION/VERBAL INSTRUCTION LEARNING CAPABILITIES PRESENT?YES EMOTIONAL BARRIERS?NO SPECIAL DEVICES?NO DIRECTOR DANCE NEEDED?NO DOMESTIC VIOLENCE DO YOU FEEL SAFE IN YOUR ENVIRONMENT?YES PATIENT DESCRIBES PAIN : ACHING, IT COMES AND GOES, SHARP, THROBBING, SHOOTING, FROM 0-10, WHAT LEVEL IS YOUR PAIN TODAY? 7, PRECIPITATING FACTORS ACTIVITY, WALKING, ALLEVIATING FACTORS REST, MEDICATIONS. - PFS REFERRAL NEEDED?NO CLERGY REFERRAL NEEDED?NO PUBLIC HEALTH REFERRAL NEEDED?NO WAS THE PROVIDER NOTIFIED OF ANY PERTINENT INFO? N/A HAS THE PATIENT BEEN EDUCATED REGARDING HIS/HER PLAN OF CARE?YES HAS THE PATIENT BEEN EDUCATED REGARDING PAIN, THE RISK FOR PAIN, THE IMPORTANCE OF EFFECTIVE PAIN MANAGEMENT, AND THE PAIN ASSESSMENT PROCESS?YES ADVANCE DIRECTIVE ADVANCE DIRECTIVE DISCUSSED WITH PATIENT:YES PT DOES NOT HAVE ANY ADVANCED DIRECTIVES AND HE DECLINES INFORMATION ON HCP AT THIS TIME, STATES THAT HE HAS THE INFORMATION AT HOME. ASSISTANCE OFFERED IN COMPLETING HCP IF NEEDED. REVIEW OF SYSTEMS CONSTITUTIONAL: ANY RECENT FEVER NO . CHILLS NO . WEIGHT CHANGE OF UNKNOWN REASONS NO . GASTROENTEROLOGY: NEW UNEXPLAINABLE CHANGES IN BOWEL CONTROL NO . CONSTIPATION NO . GENITOURINARY: ANY NEW CHANGE IN BLADDER CONTROL? NO . NEUROLOGY: NEW ONSET DIZZINESS OR NEUROLOGICAL CHANGES NOT MENTIONED NO . NEW NUMBNESS OR PAIN PATTERNS NOT MENTIONED AND PERTINENT TO TODAY'S VISIT NO . CARDIOLOGY: NEW CHEST PRESSURE NO . PATIENT DENIES NO . RESPIRATORY: UNEXPLAINABLE COUGH NO . NEW SHORTNESS OF BREATH NO . VITAL SIGNS WT 248.8 LBS, HT 70 IN, BMI 35.70 INDEX, BP 125/70 MM HG, HR 59 /MIN, RR 18 /MIN, TEMP 99.5 F, OXYGEN SAT % 96%, SAFE IN ENV? (Y/N) YES, REVIEWED BY: BHAVNA LÓPEZ MA. EXAMINATION GENERAL EXAMINATION: GENERALNO ACUTE DISTRESS, WELL NOURISHED AND HYDRATED. PSYCHAPPROPRIATE MOOD AND AFFECT . LUNGS:CLEAR TO AUSCULTATION BILATERALLY, NO WHEEZES, RHONCHI, RALES. HEART:NO MURMURS, REGULAR RATE AND RHYTHM. ASSESSMENTS OTHER CHRONIC PAIN - G89.29 (PRIMARY) SPONDYLOSIS OF LUMBOSACRAL REGION WITHOUT MYELOPATHY OR RADICULOPATHY - M47.817, RISK: (NULL) TREATMENT OTHER CHRONIC PAIN PAIN PROCEDURE LOGDATE OF [id number]/13/2021PROCEDURE:LUMBAR COOL RADIOFREQUENCY RIGHT L4-L5, L5-J1VPBHXV OF PRE SEDATEVALIUM 5MG; OXYCODONE 5MGRESULT:PREPROCEDURE 9 OUT OF 10 POST PROCEDURE 0-2 OUT OF 10. CONTINUES TO HELP TODAY. SPONDYLOSIS OF LUMBOSACRAL REGION WITHOUT MYELOPATHY OR RADICULOPATHY NOTES: 71-YEAR-OLD MALE IN FOR POST PROCEDURAL FOLLOW-UP. GIVEN PRESENTING SYMPTOMS RECOMMEND FOLLOW-UP IN 2 MONTHS. PATIENT HAS EXPRESSED UNDERSTANDING OF AND WAS IN AGREEMENT WITH TREATMENT PLAN. GIVEN TIME ASKED QUESTIONS AND EXPRESS CONCERNS. PROCEDURE CODES FA211 ESTABILISHED PATIENT [facility] CHARGE DISPOSITION & COMMUNICATION FOLLOW UP 2 MONTHS (REASON: BACK PAIN ) ELECTRONICALLY SIGNED BY MARIXA SANDRA ON 04/03/2021 AT 08:05 AM EDT DISCLAIMER : THIS IS A VISIT SUMMARY EXTRACTED FROM THE [employer] CHART. IT IS NOT A COPY OF THE [employer] PROGRESS NOTE. MTDD
== END ==
LOC: M PAIN 09:45
PROVIDERS: ATTEND Family Medicine
DX: G89.29 Other chronic pain (principal); M47.817 Spondylosis without myelopathy or radiculopathy, lumbosacral region; E78.5 Hyperlipidemia, unspecified; I10 Essential (primary) hypertension; E11.9 Type 2 diabetes mellitus without complications; K21.9 Gastro-esophageal reflux disease without esophagitis; M45.9 Ankylosing spondylitis of unspecified sites in spine; Z79.82 Long term (current) use of aspirin; Z79.4 Long term (current) use of insulin; Z79.899 Other long term (current) 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; Z88.8 Allergy status to other drugs, medicaments and biological substances

== ENCOUNTER → 2021-04-04 | Outpatient (REF) | payer MEDICARE, OTHER ==
[2021-04-04 13:23] LABS: HEMOGLOBIN A1c 8.4 %
[2021-04-04 13:34] LABS: BILIRUBIN,TOTAL 0.4 MG/DL (0.2-1.0); CALCIUM LEVEL 9.1 MG/DL (8.8-10.2); CHOLESTEROL RISK RATIO 3.818 (<5); CREATININE FOR GFR 1.67 MG/DL (0.70-1.30); GLOMERULAR FILTRATION RATE 43.1 (>42); POTASSIUM SERUM 5.1 MEQ/L (3.5-5.1); THYROID STIMULATING HORMONE 1.3 uIU/ML (0.358-3.740); TOTAL PROTEIN 7.6 GM/DL (6.4-8.2)
[2021-04-04 13:35] LABS: CREATININE, URINE 94.5 MG/DL; CREATININE,RANDOM URINE 94.5 MG/DL; MALB URINE SIEMENS 7.3 MG/L; MAU/CREAT RATIO 7.7 MCG/MG (0.0-30.0)
== END ==
LOC: M LABDRWAD 12:33
PROVIDERS: ATTEND Nurse Practitioner
DX: E11.22 Type 2 diabetes mellitus with diabetic chronic kidney disease (principal); I12.9 Hypertensive chronic kidney disease with stage 1 through stage 4 chronic kidney disease, or unspecified chronic kidney disease; N18.9 Chronic kidney disease, unspecified

== ENCOUNTER → 2021-04-10 | Outpatient (CLI) | payer MEDICARE, BC, OTHER ==
--- NOTE | 2021-04-10 15:12 | REP ---
INDICATION: THYROID NODULE. COMPARISON: 06/15/2012 which showed a 4 x 3.4 x 2.8 cm sized heterogenous nodule in the right lobe of the thyroid TECHNIQUE: Bilateral thyroid ultrasound FINDINGS: The right lobe of the thyroid gland measures 6 x 4.2 x 3.7 cm and the left lobe measures 3.7 x 1.6 x 1.9 cm. The isthmus measures 4.4 mm. In the right lobe of the thyroid gland once again, there is a solid nodule which today measures 4.5 x 3.2 x 3.1 cm. There are no nodules in the left side IMPRESSION: No significant change compared to the prior exam with findings as described above. <Electronically signed by Dann Green > 04/10/21 3543
== END ==
LOC: M RAD 14:23
PROVIDERS: ATTEND Nurse Practitioner
DX: E04.1 Nontoxic single thyroid nodule (principal)

== ENCOUNTER → 2021-06-25 | Outpatient (CLI) | payer MEDICARE, OTHER | LOC: M PAIN 10:15 | PROVIDERS: ATTEND Anesthesiology | DX: M47.816 Spondylosis without myelopathy or radiculopathy, lumbar region (principal); M48.062 Spinal stenosis, lumbar region with neurogenic claudication; E78.5 Hyperlipidemia, unspecified; I10 Essential (primary) hypertension; E11.9 Type 2 diabetes mellitus without complications; K21.9 Gastro-esophageal reflux disease without esophagitis; M19.90 Unspecified osteoarthritis, unspecified site; M45.9 Ankylosing spondylitis of unspecified sites in spine; Z85.810 Personal history of malignant neoplasm of tongue; Z79.82 Long term (current) use of aspirin; Z79.4 Long term (current) use of insulin; Z79.899 Other long term (current) 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; Z88.8 Allergy status to other drugs, medicaments and biological substances ==

== ENCOUNTER 2021-08-16 11:36 | Emergency (ER) | payer MEDICARE, BC, OTHER ==
[~2021-08-16] VITALS: Ht 177.8 cm; Wt 113.6 kg
[2021-08-16] MEDS ORDERED: LOPE-39 PO (11:42)
--- OUTSIDE RECORDS SUMMARY | 2021-08-16 11:42 | CCD | Continuity of Care Document ---
Author Author Medardo NICOLE Organization Unknown Address [address], [address] [place] [address] Phone [phone] Care Team Providers Care Graduate Engineer Name Role Phone Alejandro Del Rio D.O. AUTM [phone] Dalton Arita AUTM [phone] AUTM Unavailable Juan Manuel Segal M.D. AUTM [phone] [facility] AUTM [phone] Problems Active Problems Provider Date Type 2 [...] Smoker Smoking Status Reviewed: 08/20/20 Non Smoker Allergies and adverse reactions Active Allergies Criticality Reaction | Severity Comments Date Lipitor Unable to assess criticality 01/04/2015 Inactive Allergies NKDA Unable to assess criticality 07/18/2009 Medications Active Medications SIG Qnty Indications Ordering Provide r Date Ofloxacin (Otic) 0.3% Solution 5 drops to left ear twice a day x 7 days 1units H60.8x2 Nba Fields MD CPAP [facility] Audie Carpenter MD 08/06 Ozempic (0.25 Or 0.5 MG/Dose) 2mg/1.5ML Solution Pen-Inject 1 week Unknown Gabapentin 600mg Tablets 1 by mouth twice a day, morning and night Unknown 000 Tizanidine HCL 4mg Tablets Alberta Santiago, R.P.A.-C Metformin HCL 500mg Tablets 1 qd Unknown Gabapentin 300mg Capsules 1 t id Unknown Victoza 18mg/3ML Solution Pen-Inje ct 1 injection every week Unknown Aspir-[address] 1 po qd Unknown Fluticasone Propionate 50mcg/Act Suspension 1 sprays [...] CPT Code Status Date Vaccine Lot # 15950 Given 06/19/2016 Influenza Virus Split 3 Yrs And Above For Intramuscular Use 15273 Given 07/03/2015 Influenza Virus Split 3 Yrs And Above For Intramuscular Use Q2036 Given 06/15/2012 Influenza Vaccine 3 Years Of Age Or Older (Flulaval) Q2036 Given 07/15/2011 Influenza Vaccine 3 Years Of Age Or Older (Flulaval) 45912 Given 06/14/2008 Influenza Vaccine Vital Signs Date Vital Result Comment 07/21/2021 11:05am Height 70 inches 5'10" Weight 251.00 lb BMI (Body Mass Index) 36.0 kg/m2 [place] Body Weight 166 lb Weight 113.854 kg BSA (Body Surface Area) 2.30 m2 05/20/2021 10:48am Height 70 inches 5'10" Weight 251.50 lb BMI (Body Mass Index) 36.1 kg/m2 [place] Body Weight 166 lb Weight 114.080 kg BSA (Body Surface Area) 2.30 m2 Results Description No Information Available Procedures Date Code Description Status 05/20/2021 20225 Office/Outpatient Established Lo w MDM 20-29 Min Completed 03/19/2021 47508 Office/Outpatient Established Lo w MDM 20-29 Min Completed Medical Devices Description No Information Available Encounters Type Date Location Provider Dx Diagnosis Office Visit 05/20/2021 11:00a [facility] Raji Nicole II, PA-C 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, 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 H72.02 Central perforation of tympa cuong membrane, left ear Office Visit 03/19/2021 10:00a [facility] Raji Nicole II, PA-C 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, 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 H72.02 Central perforation of tympa cuong membrane, left ear Assessments Date Code Description Provider 07/21/2021 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, incl uding tongue Raji Corey II, KEVIN 07/21/2021 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 [facility] GABE, KEVIN 07/21/2021 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, left ear Raji Coreycarlos BERNAL, KEVIN 07/21/2021 H61.23 Impacted cerumen, bilateral Asa as Corey BERNAL, DENC 05/20/2021 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, incl uding tongue [facility] GABE, DENC 05/20/2021 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 [facility], KEVIN 05/20/2021 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, left ear [facility] KEV[facility] 03/19/2021 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, incl uding tongue Raji Corey II, KEVIN 03/19/2021 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 Patient is on immunosuppressive medications. Will continue close follow up. 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 There is a persistent perforation of the left drum following e xtrusion of tympanostomy tube. There is no inflammation and this is not giving him any difficulties. * H61.23 Impacted cerumen, bilateral* Comments:* cleared as above Functional Status Functional Condition Comment Date Status C-Pap Active Mental Status Description No Information Available Referrals Description No Information Available
--- OUTSIDE RECORDS SUMMARY | 2021-08-16 11:42 | CCD | Continuity of Care Document ---
Author Author Medardo NICOLE Organization Unknown Address [address], [address] [place] [address] Phone [phone] Care Team Providers Care Plumbing Engineering Draftsperson Name Role Phone Alejandro Del Rio D.O. AUTM [phone] Dalton Arita AUTM [phone] AUTM Unavailable Juan Manuel Segal M.D. AUTM [phone] [facility] AUTM [phone] Problems Active Problems Provider Date Type 2 [...] MD Onset: 09/15/2011 Mabel Alegria Corey BERNAL [place] Onset: 05/25/2018 Social History Type Date Description Comments Sex Unknown Tobacco Use Start: Unknown Never Smoked Cigarettes ETOH Use 1 A Month Tobacco Use Start: Unknown Non Smoker Smoking Status Reviewed: 08/20/20 Non Smoker Allergies, Adverse Reactions, Alerts Active Allergies Criticality Reaction | Severity Comments [...] night Unknown 000 Tizanidine HCL 4mg Tablets Albetra Santiago, R.P.A.-Ruby Metformin HCL 500mg Tablets 1 qd Unknown [...] CPT Code Status Date Vaccine Lot # 73533 Given 06/19/2016 Influenza Virus Split 3 Yrs And Above For Intramuscular Use 02632 Given 07/03/2015 Influenza Virus Split 3 Yrs And Above For Intramuscular Use Q2036 Given 06/15/2012 Influenza Vaccine 3 Years Of Age Or Older (Flulaval) Q2036 Given 07/15/2011 Influenza Vaccine 3 Years Of Age Or Older (Flulaval) 42443 Given 06/14/2008 Influenza Vaccine Vital Signs Date Vital Result Comment 05/20/2021 10:48am Height 70 inches 5'10" Weight 251.50 lb BMI (Body Mass Index) 36.1 kg/m2 [place] Body Weight 166 lb Weight 114.080 kg BSA (Body Surface Area) 2.30 m2 03/19/2021 10:10am Height 70 inches 5'10" Weight 256.00 lb BMI (Body Mass Index) 36.7 kg/m2 [place] Body Weight 166 lb Weight 116.122 kg BSA (Body Surface Area) 2.32 m2 Results Description No Information Available Procedures Date Code Description Status 05/20/2021 19443 Office/Outpatient Established Lo w MDM 20-29 Min Completed 03/19/2021 61077 Office/Outpatient Established Lo w MDM 20-29 Min Completed 01/14/2021 83361 Office/Outpatient Established Lo w MDM 20-29 Min Completed 01/14/2021 56601 Remove Impacted Cerumen Complete d Medical Devices Description No Information Available Encounters Type Date Location Provider Dx Diagnosis Office Visit 05/20/2021 11:00a [facility] Raji Nicole II, PA-C 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, 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 H72.02 Central perforation of tympa cuong membrane, left ear Office Visit 03/19/2021 10:00a [facility] Raji Nicole II, PA-C 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, 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 H72.02 Central perforation of tympa cuong membrane, left ear Office Visit 01/14/2021 10:15a [facility] Raji Nicole II, PA-C 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, including tongue H72.02 Central perforation of tympa cuong membrane, left ear H61.23 Impacted cerumen, bilateral Assessments Date Code Description Provider 05/20/2021 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, incl uding tongue Raji Nicole II, DENC 05/20/2021 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 Raji Nicole II, DENC 05/20/2021 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, left ear Raji Nicole II, DENC 03/19/2021 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, incl uding tongue Raji Nicole II, DENC 03/19/2021 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 Raji Nicole II, DENC 03/19/2021 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, left ear Raji Nicole II, JULIOCESAR-C 01/14/2021 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 Raji Nicole II, JULIOCESAR-C 01/14/2021 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, incl uding tongue Raji Nicole II, DENC 01/14/2021 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, left ear Raji Nicole II, DENC 01/14/2021 H61.23 Impacted cerumen, bilateral Asa as Corey BERNAL PA-C Plan of Treatment Future Appointment(s):* 07/21/2021 11:00 am - Raji Nicole II, PA-C at [facility] * 08/13/2021 9:45 am - Audie Carpenter MD at [facility] Pulmonary/Thoracic 05/20/2021 - Raji Nicole II, PA-C* 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 Patient is on immunosuppressive medications. Will continue close follow up. 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 No clinical evidence of disease reoccurrence (excision ) * 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, left ear* Comments:* He is doing well. There is a persistent perforation of the left drum following e xtrusion of tympanostomy tube. This is not giving him any difficulties. Functional Status Functional Condition Comment Date Status C-Pap Active Mental Status Description No Information Available Referrals Description No Information Available
--- OUTSIDE RECORDS SUMMARY | 2021-08-16 11:42 | CCD ---
Continuity of Care Document (CCD) Created on: 07/21/2021 Medardo Simeon External Reference #: [id number] : 1950 Sex: Male Author Author Medardo NICOLE Organization Unknown Address [address], [address] [place] [address] Phone [phone] Care Team Providers Care Investment Professional Name Role Phone Alejandro Del Rio D.O. AUTM [phone] Dalton Arita AUTM [phone] AUTM Unavailable Juan Manuel Segal M.D. AUTM [phone] [facility] AUTM [phone] Problems Active Problems Provider Date Type 2 [...] CPT Code Status Date Vaccine Lot # [id number] Given 06/19/2016 Influenza Virus Split 3 Yrs And Above For Intramuscular Use 10286 Given 07/03/2015 Influenza Virus Split 3 Yrs And Above For Intramuscular Use Q2036 Given 06/15/2012 Influenza Vaccine 3 Years Of Age Or Older (Flulaval) Q2036 Given 07/15/2011 Influenza Vaccine 3 Years Of Age Or Older (Flulaval) 78894 Given 06/14/2008 Influenza Vaccine Vital Signs Date Vital Result Comment 07/21/2021 11:05am Height 70 inches 5'10" Weight 251.00 lb BMI (Body Mass Index) 36.0 kg/m2 [place] Body Weight 166 lb Weight 113.854 kg BSA (Body Surface Area) 2.30 m2 05/20/2021 10:48am Height 70 inches 5'10" Weight 251.50 lb BMI (Body Mass Index) 36.1 kg/m2 [place] Body Weight 166 lb Weight 114.080 kg BSA (Body Surface Area) 2.30 m2 Results Description No Information Available Procedures Date Code Description Status 05/20/2021 17274 Office/Outpatient Established Lo w MDM 20-29 Min Completed 03/19/2021 94414 Office/Outpatient Established Lo w MDM 20-29 Min Completed Medical Devices Description No Information Available Encounters Type Date Location Provider Dx Diagnosis Office Visit 05/20/2021 11:00a [facility] Raji Nicole II, PA-C 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, 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 H72.02 Central perforation of tympa cuong membrane, left ear Office Visit 03/19/2021 10:00a [facility] Raji Nicole II, PA-C 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, 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 H72.02 Central perforation of tympa cuong membrane, left ear Assessments Date Code Description Provider 07/21/2021 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, incl uding tongue Raji Corey II, KEVIN 07/21/2021 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 [facility] GABE, KEVIN 07/21/2021 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, left ear Raji Coreycarlos BERNAL, KEVIN 07/21/2021 H61.23 Impacted cerumen, bilateral Asa as Corey BERNAL, DENC 05/20/2021 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, incl uding tongue [facility] GABE, DENC 05/20/2021 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 [facility], KEVIN 05/20/2021 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, left ear Raji [facility] GABE, KEVIN 03/19/2021 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, incl uding tongue Raji Corey II, KEVIN 03/19/2021 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
--- OUTSIDE RECORDS SUMMARY | 2021-08-16 11:42 | CCD ---
Author Author [facility] Organization [facility] Address Unknown Phone Unavailable Care Team Providers Care Director Sports Name Role Phone Juaquin Quintanilla Unavailable PROBLEMS Type Condition ICD9-CM Code [id number] Code Onset Dates Condition S tatus W/U Status Risk SNOMED Code Notes Problem Spondylosis of lumbar region without myelopathy or radiculopathy M47.816 Active confirmed 04709481 Problem Spondylosis of lumbosacral region without myelop athy or radiculopathy M47.817 Active confirmed 99964868 Problem Sacroiliitis, not elsewhere classified M46.1 A ctive confirmed 89857962 Problem Myalgia M79.1 Active confirmed 01945177 Problem Spondylosis 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.815 Active confirmed 17225378 Problem Lumbosacral spondylosis with radiculopathy M47.27 Active confirmed 844846402 Problem Spondylosis without myelopathy or radiculopathy, lumbar region M47.816 Active confirmed 184491585 Problem 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 y or radiculopathy M47.814 Active confirmed 230442286 Problem Nevus of buttock D22.5 Active confirmed 923 42859 Problem Tinea pedis of both feet B35.3 Active confirmed 0555576 Problem Onychomycosis B35.1 Active confirmed 748256 008 Problem Spondylosis without myelopathy or radiculopathy, lumbosacral region M47.817 Active confirmed 86100901 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 Active confirmed 09508 01 Problem Lumbar facet arthropathy M46.96 Active confirmed 915974457 Problem Lumbar Facet arthropathy M47.816 Active confirmed 709037497 Problem History of atypical nevus Z87.898 Active confirmed 6352046480421 Problem Ankylosing spondylitis, unspecified site of spine M45.9 Active confirmed 4029777 Problem Lumbar disc displacement without myelopathy M51.26 Active confirmed 19572291 Problem Melanocytic nevi of left upper limb, including shoulder D22.62 Active confirmed 778754808782583 Problem Melanocytic nevi of right upper limb, including shoulder D22.61 Active confirmed 514610804 Problem Melanocytic nevi of trunk D22.5 Active confirmed 430687768 Problem Other chronic pain G89.29 Active confirmed 8 6312361 ALLERGIES Allergen (clinical drug ingredient) Drug/Non Drug Allergy do cumented on EMR Reaction Allergy Type Onset Date Status atorvastatin Lipitor([facility] Code:[address]-73) muscle pain Drug Allergy Active ENCOUNTERS from 1950 to 2021-06-27 Encounter Location Date Provider Diagnosis [facility] [address] [phone] [place] [address] Jun, Juaquin Quintanilla Spondylosis of lumba r region without myelopathy or radiculopathy M47.816 ; Lumbar Facet arthropathy M47.816 and Spinal stenosis, lumbar region with neurogenic claudication M48.062 IMMUNIZATIONS No Information SOCIAL HISTORY Tobacco Use: Social History Observation Description Date Details (start date - stop date) Never Smoker Sex Assigned At : Social History Observation Description Sex Assigned At Unknown Education: Question Answer Notes Level of Education: Not Finished College Language: Question Answer Notes Languages spoken: Togolese Sikh: Question Answer Notes Sikh 08 [employer] Alcohol Screening: Question Answer Notes Did you [...] FOR REFERRAL No Information VITAL SIGNS Weight 252 lbs Jun, Weight-kg 114.31 kg Jun, Height 70 in Jun, BMI 36.15 kg/m2 Jun, Heart Rate 60 /min Jun, Respiratory Rate 18 /min Jun, Temperature 98.4 degrees Fahrenheit Jun, Oximetry 99 Jun, Blood pressure systolic 120 mm Hg Jun, Blood pressure diastolic 63 mm Hg Jun, MEDICATIONS Medication SIG (Take, Route, Frequency, Duration) Notes Start Da te End Date Status Acetaminophen 325 MG 1 capsule as needed Orally every 4 hrs Active Empagliflozin 25 MG 1 tablet Orally Once a day for 30 day(s) (LAYAAN CE) Active Vit D-Vit E-Safflower Oil 1 cap Daily Active Pantoprazole Sodium 40 MG 1 tablet Orally Once a day Active hydroCHLOROthiazide 25 MG 1 tablet in the morning Orally Once a day Active MiraLax - 1 packet mixed with 8 ounces of fluid Orally Once a day Active Gabapentin 300 MG 1 tablet Orally Q8H TID Active tiZANidine HCl 2 MG TAKE TWO TABLETS BY MOUTH AT BEDTIME Oral for 7 Active Lantus SoloStar 100 UNIT/ML 60 units Subcutaneous Daily Active Lisinopril 40 MG 1 tablet Orally Once a day Active Citalopram Hydrobromide _ 30 mg 1 tablet Orally Once a day Active Ciclopirox 0.77 % 1 application Externally Twi ce a day to feet and back rash (use Lotrimin Ultra to feet mid-morning) for 30 days Active Atenolol 100 MG 1 tablet Orally Once a day Active metFORMIN HCl 850 MG 1 tablet with meals Orally Daily Active Multi For Him 50+ 1 cap Daily Active Ciclopirox 8 % 1 application Externally Onc e a day to toenails at night for 30 days Oct, Not-Taking Ibuprofen 600 MG 1 tablet with food or milk as needed Ora lly Three times a day Not-Taking NovoLOG FlexPen 100 UNIT/ML Sliding scale Subcutaneous Active Aspirin 81 81 MG 1 tablet Orally Once a day Active Crestor 20 MG 1 tablet Orally Once a day Active Flonase 50 MCG/DOSE 1 spray in each nostril Nasa lly Once a daily-takes as needed Active PROCEDURES No Information RESULTS No Results REASON FOR VISIT Back pain MEDICAL (GENERAL) HISTORY Type Description Date Medical History hyperlipidemia Medical History hypertension Medical History diabetes mellitus type 2 Medical History acid reflux Medical History arthritis Medical History Ankylosis Spondylitis/ Arthritis Health Spec - [place] Medical History Back Pain Medical History tounge ca Surgical History left knee surgery Surgical History right foot bunionectomy Surgical History tounge cancer taken care of by DR. Ojeda 08/2020 Hospitalization History Knee Surg Hospitalization History Dehydration at [facility] 09/2019 Goals Section No Information Health Concerns No Information MEDICAL EQUIPMENT No Information MENTAL STATUS No Information FUNCTIONAL STATUS No Information ASSESSMENTS Encounter Date Diagnosis Assessment Notes Treatment Notes Treatm ent Clinical Notes Jun, Spondylosis of lumbar region without myelopathy or radiculopathy (ICD-10 - M47.816) I discussed alternatives with Mr. Claudio. I will order some x-rays AP and lateral on flexion and extension to check the stability of his spine. I will also review the MRI films. We have done radiofrequency in the past that has helped him. My inclination is to do another diagnostic test over the left side to consider repeating the radiofrequency. He is indicating that when he walks and stands for a long time, his pain gets worse and gets better when he sits so he may be a candidate for MILD or Vertiflex. I would have to do an epidural at probably L4-L5 and see how he does with that and based on that, we can determine where to go from there. The patient is going to call us when the pain is really uncomfortable and we will reassess the case at that time. The patient reports understanding and agrees with the plan. I, Catherine Chaves, documented the above information acting as a scribe for Dr. Quintanilla. I have reviewed the above document, written by Catherine Chaves, biomedical field service engineer, and I verify that it is accurate. Jun, Lumbar Facet arthropathy (ICD9-CM - M47.816) Jun, Spinal stenosis, lumbar sudha on with neurogenic claudication (ICD-10 - M48.062) PLAN OF TREATMENT Treatment Notes Assessment Notes Clinical Notes Spondylosis of lumbar region without myelopathy or radiculop athy I discussed alternatives with Mr. Claudio. I will order some x-rays AP and lateral on flexion and extension to check the stability of his spine. I will also review the MRI films. We have done radiofrequency in the past that has helped him. My inclination is to do another diagnostic test over the left side to consider repeating the radiofrequency. He is indicating that when he walks and stands for a long time, his pain gets worse and gets better when he sits so he may be a candidate for MILD or Vertiflex. I would have to do an epidural at probably L4- L5 and see how he does with that and based on that, we can determine where to go from there. The patient is going to call us when the pain is really uncomfortable and we will reassess the case at that time. The patient reports understanding and agrees with the plan. I, Catherine Chaves, documented the above information acting as a scribe for Dr. Quintanilla. I have reviewed the above document, written by Catherine Chaves, biomedical field service engineer, and I verify that it is accurate. Treatment Notes Test Name Order Date [facility], Lumbosacral w/flex-ext 2021-06-25 Next Appt Details X-RAY ORDERED, next available Reason:PSV , back pain Provider Name:Carley Pillai, 01:00:00 PM, [address] [place] [address], [place], [place], [facility], Follow Up:X-RAY ORDERED, next availablePSV, back pain Insurance Providers Payer Name Payer Address Payer Phone Insured Name Patient Relati onship to Insured Coverage Start Date Coverage End Date MEDICARE Part A and B [address] [facility] [address] [facility] [address] [facility] [id number] TYE BULLARD
--- OUTSIDE RECORDS SUMMARY | 2021-08-16 11:42 | CCD | Continuity of Care Document ---
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 AUTM [phone] Dalton Arita AUTM [phone] AUTM Unavailable Juan Manuel Segal M.D. AUTM [phone] [facility] AUTM [phone] Problems Active Problems Provider Date Type 2 [...] CPT Code Status Date Vaccine Lot # 52460 Given 06/19/2016 Influenza Virus Split 3 Yrs And Above For Intramuscular Use 17292 Given 07/03/2015 Influenza Virus Split 3 Yrs And Above For Intramuscular Use Q2036 Given 06/15/2012 Influenza Vaccine 3 Years Of Age Or Older (Flulaval) Q2036 Given 07/15/2011 Influenza Vaccine 3 Years Of Age Or Older (Flulaval) 99975 Given 06/14/2008 Influenza Vaccine Vital Signs Date Vital Result Comment 07/21/2021 11:05am Height 70 inches 5'10" Weight 251.00 lb BMI (Body Mass Index) 36.0 kg/m2 [place] Body Weight 166 lb Weight 113.854 kg BSA (Body Surface Area) 2.30 m2 05/20/2021 10:48am Height 70 inches 5'10" Weight 251.50 lb BMI (Body Mass Index) 36.1 kg/m2 [place] Body Weight 166 lb Weight 114.080 kg BSA (Body Surface Area) 2.30 m2 Results Description No Information Available Procedures Date Code Description Status 07/21/2021 31045 Office/Outpatient Established Lo w MDM 20-29 Min Completed 07/21/2021 51995 Remove Impacted Cerumen Complete d 05/20/2021 61962 Office/Outpatient Established Lo w MDM 20-29 Min Completed 03/19/2021 03001 Office/Outpatient Established Lo w MDM 20-29 Min Completed Medical Devices Description No Information Available Encounters Type Date Location Provider Dx Diagnosis Office Visit 07/21/2021 11:00a [facility] Raji Nicole II, PA-C 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, 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 H72.02 Central perforation of tympa cuong membrane, left ear H61.23 Impacted cerumen, bilateral Office Visit 05/20/2021 11:00a [facility] Raji Nicole II, PA-C 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, 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 H72.02 Central perforation of tympa cuong membrane, left ear Office Visit 03/19/2021 10:00a [facility] Raji Nicole II, PA-C 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, 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 H72.02 Central perforation of tympa cuong membrane, left ear Assessments Date Code Description Provider 07/21/2021 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, incl uding tongue Raji Coreycarlos BERNAL, DENC 07/21/2021 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 Raji Corey II, DENC 07/21/2021 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, left ear Raji Nicole II, DENC 07/21/2021 H61.23 Impacted cerumen, bilateral Asa Corey BERNAL, DENC 05/20/2021 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, incl uding tongue Raji Corey II, DENC 05/20/2021 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 Raji [facility] GABE, DENC 05/20/2021 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, left ear Raji Coreycarlos BERNAL, DENC 03/19/2021 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, incl uding tongue Raji Corey II, DENC 03/19/2021 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
--- OUTSIDE RECORDS SUMMARY | 2021-08-16 11:42 | CCD | Continuity of Care Document ---
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 AUTM [phone] Dalton Arita AUTM [phone] AUTM Unavailable Juan Manuel Segal M.D. AUTM [phone] [facility] AUTM [phone] Problems Active Problems Provider Date Type 2 [...] Fields MD Onset: Chronic serous otitis media bNa Fields MD Onset: 01/04 Other specified disorders [...] 000 Tizanidine HCL 4mg Tablets Alberta Santiago, R.P.A.-Ruby Metformin HCL 500mg Tablets 1 [...] CPT Code Status Date Vaccine Lot # [id number] Given 06/19/2016 Influenza Virus Split 3 Yrs And Above For Intramuscular Use 74455 Given 07/03/2015 Influenza Virus Split 3 Yrs And Above For Intramuscular Use Q2036 Given 06/15/2012 Influenza Vaccine 3 Years Of Age Or Older (Flulaval) Q2036 Given 07/15/2011 Influenza Vaccine 3 Years Of Age Or Older (Flulaval) 69095 Given 06/14/2008 Influenza Vaccine Vital Signs Date Vital Result Comment 05/20/2021 10:48am Height 70 inches 5'10" Weight 251.50 lb BMI (Body Mass Index) 36.1 kg/m2 [place] Body Weight 166 lb Weight 114.080 kg BSA (Body Surface Area) 2.30 m2 03/19/2021 10:10am Height 70 inches 5'10" Weight 256.00 lb BMI (Body Mass Index) 36.7 kg/m2 [place] Body Weight 166 lb Weight 116.122 kg BSA (Body Surface Area) 2.32 m2 Results Description No Information Available Procedures Date Code Description Status 03/19/2021 40778 Office/Outpatient Established Lo w MDM 20-29 Min Completed 01/14/2021 21083 Office/Outpatient Established Lo w MDM 20-29 Min Completed 01/14/2021 59711 Remove Impacted Cerumen Complete d Medical Devices Description No Information Available Encounters Type Date Location Provider Dx Diagnosis Office Visit 03/19/2021 10:00a [facility] Raji Nicole II, PA-C 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, 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 H72.02 Central perforation of tympa cuong membrane, left ear Office Visit 01/14/2021 10:15a [facility] Raji Nicole II, PA-C 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, including tongue H72.02 Central perforation of tympa cuong membrane, left ear H61.23 Impacted cerumen, bilateral Assessments Date Code Description Provider 05/20/2021 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, incl uding tongue Raji Nicole II, KEVIN 05/20/2021 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 Raji Nicole II, KEVIN 05/20/2021 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, left ear Raji Nicole II, KEVIN 03/19/2021 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, incl uding tongue Raji Nicole II, KEVIN 03/19/2021 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 Raji Nicole II, KEVIN 03/19/2021 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, left ear Raji Nicole II, KEVIN 01/14/2021 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
[2021-08-16] MEDS ORDERED: INFL10VL IV (11:43)
--- OUTSIDE RECORDS SUMMARY | 2021-08-16 11:44 | CCD ---
Author Author [facility] Organization [facility] Address Unknown Phone Unavailable Care Team Providers Care Audiovisual Lead Technician Name Role Phone BOSSI, A ROSA PA Unavailable Unavailable BOSSI, A ROSA PA Unavailable Unavailable BOSSI, A ROSA PA Unavailable Unavailable BOSSI, A ROSA PA Unavailable Unavailable BOSSI, A ROSA PA Unavailable Unavailable BOSSI, A ROSA PA Unavailable Unavailable BOSSI, A ROSA PA Unavailable Unavailable BOSSI, A ROSA PA Unavailable Unavailable BOSSI, A ROSA PA Unavailable Unavailable BOSSI, A ROSA PA Unavailable Unavailable BOSSI, A ROSA PA Unavailable Unavailable BOSSI, A ROSA PA Unavailable Unavailable BOSSI, A ROSA PA Unavailable Unavailable BOSSI, A ROSA PA Unavailable Unavailable BOSSI, A ROSA PA Unavailable Unavailable BOSSI, A ROSA PA Unavailable Unavailable BOSSI, A ROSA PA Unavailable Unavailable BOSSI, A ROSA PA Unavailable Unavailable BOSSI, A ROSA PA Unavailable Unavailable BOSSI, A ROSA PA Unavailable Unavailable BOSSI, A ROSA PA Unavailable Unavailable BOSSI, A ROSA PA Unavailable Unavailable BOSSI, A ROSA PA Unavailable Unavailable BOSSI, A ROSA PA Unavailable Unavailable BOSSI, A ROSA PA Unavailable Unavailable BOSSI, A ROSA PA Unavailable Unavailable BOSSI, A ROSA PA Unavailable Unavailable BOSSI, A ROSA PA Unavailable Unavailable BOSSI, A ROSA PA Unavailable Unavailable BOSSI, A ROSA PA Unavailable Unavailable BOSSI, A ROSA PA Unavailable Unavailable BOSSI, A ROSA PA Unavailable Unavailable BOSSI, A ROSA PA Unavailable Unavailable Crystal Del Rio DO Unavailable Unavailable Crystal Del Rio DO Unavailable Unavailable Carguello J Alejandro DO Unavailable Unavailable Carguello J Alejandro DO Unavailable Unavailable Carguello J Alejandro DO Unavailable Unavailable Carguello J Alejandro DO Unavailable Unavailable Carguello J Alejandro DO Unavailable Unavailable Carguello J Alejandro DO Unavailable Unavailable Carguello J Alejandro DO Unavailable Unavailable Carguello, J Alejandro DO Unavailable Unavailable Carguello, J Alejandro DO Unavailable Unavailable Carguello, J Alejandro DO Unavailable Unavailable Carguello, J Alejandro DO Unavailable Unavailable Carguello J Alejandro DO Unavailable Unavailable Carguello, J Alejandro DO Unavailable Unavailable Carguello, J Alejandro DO Unavailable Unavailable Carguello, J Alejandro DO Unavailable Unavailable Carguello J Alejandro DO Unavailable Unavailable Carguello, J Alejandro DO Unavailable Unavailable Carguello J Alejandro DO Unavailable Unavailable Carguello, J Alejandro DO Unavailable Unavailable Carguello, J Alejandro DO Unavailable Unavailable Carguello, J Alejandro DO Unavailable Unavailable Carguello J Alejandro DO Unavailable Unavailable Carguello, J Alejandro DO Unavailable Unavailable Carguello J Alejandro DO Unavailable Unavailable Carguello J Alejandro DO Unavailable Unavailable Carguello J Alejandro DO Unavailable Unavailable Carguello J Alejandro DO Unavailable Unavailable Carguello J Alejandro DO Unavailable Unavailable Carguello J Alejandro DO Unavailable Unavailable Carguello J Alejandro DO Unavailable Unavailable Carguello J Alejandro DO Unavailable Unavailable Carguello J Alejandro DO Unavailable Unavailable Carguello, J Alejandro DO Unavailable Unavailable Carguello, J Alejandro DO Unavailable Unavailable Carguello J Alejandro DO Unavailable Unavailable Carguello J Alejandro DO Unavailable Unavailable Carguello J Alejandro DO Unavailable Unavailable Carguello J Alejandro DO Unavailable Unavailable Carguello J Alejandro DO Unavailable Unavailable Carguello J Alejandro DO Unavailable Unavailable Carguello J Alejandro DO Unavailable Unavailable Carguello J Alejandro DO Unavailable Unavailable Carguello J Alejandro DO Unavailable Unavailable Carguello J Alejandro DO Unavailable Unavailable Carguello J Alejandro DO Unavailable Unavailable Carguello J Alejandro DO Unavailable Unavailable Carguello J Alejandro DO Unavailable Unavailable Carguello J Alejandro DO Unavailable Unavailable Carguello J Alejandro DO Unavailable Unavailable Carguello J Alejandro DO Unavailable Unavailable Carguello, J Alejandro DO Unavailable Unavailable CarguelloCrystal Alejandro DO Unavailable Unavailable CarguelloCrystal Alejandro DO Unavailable Unavailable CarguelloCrystal Alejandro DO Unavailable Unavailable CarguelloCrystal Alejandro DO Unavailable Unavailable CarguelloCrystal Alejandro DO Unavailable Unavailable CarguelloCrystal Alejandro DO Unavailable Unavailable Carguello J Alejandro DO Unavailable Unavailable Carguello, J Alejandro DO Unavailable Unavailable Carguello J Alejandro DO Unavailable Unavailable Carguello J Alejandro DO Unavailable Unavailable Carguello J Alejandro DO Unavailable Unavailable Carguello J Alejanrdo DO Unavailable Unavailable Carguello J Alejandro DO Unavailable Unavailable Carguello J Alejandro DO Unavailable Unavailable Carguello J Alejandro DO Unavailable Unavailable Carguello J Alejandro DO Unavailable Unavailable CarguelloCrystal Alejandro DO Unavailable Unavailable Carguello J Alejandro DO Unavailable Unavailable Carguello J Alejandro DO Unavailable Unavailable Carguello J Alejandro DO Unavailable Unavailable CarguelloCrystal Alejandro DO Unavailable Unavailable Carguello J Alejandro DO Unavailable Unavailable CarguelloCrystal Alejandro DO Unavailable Unavailable CarguelloCrystal Alejandro DO Unavailable Unavailable CarguelloCrystal Alejandro DO Unavailable Unavailable CarguelloCrystal Alejandro DO Unavailable Unavailable Carguello J Alejandro DO Unavailable Unavailable CarguelloCrystal Alejandro DO Unavailable Unavailable CarguelloCrystal Alejandro DO Unavailable Unavailable CarguelloCrystal Alejandro DO Unavailable Unavailable Carguello J Alejandro DO Unavailable Unavailable CarguelloCrystal Alejandro DO Unavailable Unavailable CarguelloCrystal Alejandro DO Unavailable Unavailable CarguelloCrystal Alejandro DO Unavailable Unavailable CarguelloCrystal Alejandro DO Unavailable Unavailable CarguelloCrystal Alejandro DO Unavailable Unavailable Machovec, B Kusum PA-C Unavailable [...] Unavailable Machovec, B Kusum PA-C Unavailable Unavailable Carguello J Alejandro DO Unavailable Unavailable Carguello J Alejandro DO Unavailable Unavailable Carguello J Alejandro DO Unavailable Unavailable Carguello J Alejandro DO Unavailable Unavailable Carguello J Alejandro DO Unavailable Unavailable Carguello J Alejandro DO Unavailable Unavailable Carguello J Alejandro DO Unavailable Unavailable Carguello J Alejandro DO Unavailable Unavailable Carguello J Alejandro DO Unavailable Unavailable Carguello, J Alejandro DO Unavailable Unavailable Carguello J Alejandro DO Unavailable Unavailable Carguello J Alejandro DO Unavailable Unavailable Carguello J Alejandro DO Unavailable Unavailable Carguello J Alejandro DO Unavailable Unavailable Carguello J Alejandro DO Unavailable Unavailable Carguello, J Alejandro DO Unavailable Unavailable Carguello J Alejandro DO Unavailable Unavailable Carguello J Alejandro DO Unavailable Unavailable Carguello J Alejandro DO Unavailable Unavailable Carguello J Alejandro DO Unavailable Unavailable Carguello J Alejandro DO Unavailable Unavailable Carguello J Alejandro DO Unavailable Unavailable Carguello J Alejandro DO Unavailable Unavailable Carguello J Alejandro DO Unavailable Unavailable Carguello J Alejandro DO Unavailable Unavailable Carguello J Alejandro DO Unavailable Unavailable Carguello J Alejandro DO Unavailable Unavailable Carguello J Alejandro DO Unavailable Unavailable Carguello J Alejandro DO Unavailable Unavailable Carguello J Alejandro DO Unavailable Unavailable Carguello J Alejandro DO Unavailable Unavailable Carguello J Alejandro DO Unavailable Unavailable Carguello J Alejandro DO Unavailable Unavailable Carguello J Alejandro DO Unavailable Unavailable Carguello J Alejandro DO Unavailable Unavailable Carguello J Alejandro DO Unavailable Unavailable Carguello J Alejandro DO Unavailable Unavailable Carguello J Alejandro DO Unavailable Unavailable Carguello J Alejandro DO Unavailable Unavailable Carguello J Alejandro DO Unavailable Unavailable Carguello J Alejandro DO Unavailable Unavailable Carguello J Alejandro DO Unavailable Unavailable Carguello J Alejandro DO Unavailable Unavailable Carguello J Alejandro DO Unavailable Unavailable Carguello, J Alejandro DO Unavailable Unavailable CarguelloCrystal Alejandro DO Unavailable Unavailable Carguello J Alejandro DO Unavailable Unavailable Carguello J Alejandro DO Unavailable Unavailable Carguello J Alejandro DO Unavailable Unavailable Carguello J Alejandro DO Unavailable Unavailable Carguello J Alejandro DO Unavailable Unavailable Carguello J Alejandro DO Unavailable Unavailable Carguello J Alejandro DO Unavailable Unavailable Carguello J Alejandro DO Unavailable Unavailable Carguello J Alejandro DO Unavailable Unavailable Carguello J Alejandro DO Unavailable Unavailable Carguello J Alejandro DO Unavailable Unavailable Carguello J Alejandro DO Unavailable Unavailable Carguello J Alejandro DO Unavailable Unavailable Carguello J Alejandro DO Unavailable Unavailable Carguello J Alejandro DO Unavailable Unavailable Carguello J Alejandro DO Unavailable Unavailable Carguello J Alejandro DO Unavailable Unavailable Carguello J Alejandro DO Unavailable Unavailable Carguello J Alejandro DO Unavailable Unavailable Carguello J Alejandro DO Unavailable Unavailable Carguello J Alejandro DO Unavailable Unavailable Carguello J Alejandro DO Unavailable Unavailable CarguelloCrystal Alejandro DO Unavailable Unavailable Carguello J Alejandro DO Unavailable Unavailable CarguelloCrystal Alejandro DO Unavailable Unavailable Carguello J Alejandro DO Unavailable Unavailable Carguello J Alejandro DO Unavailable Unavailable Carguello J Alejandro DO Unavailable Unavailable Carguello J Alejandro DO Unavailable Unavailable Carguello J Alejandro DO Unavailable Unavailable Carguello J Alejandro DO Unavailable Unavailable Carguello J Alejandro DO Unavailable Unavailable Carguello J Alejandro DO Unavailable Unavailable Carguello J Alejandro DO Unavailable Unavailable Carguello J Alejandro DO Unavailable Unavailable Carguello J Alejandro DO Unavailable Unavailable Carguello J Alejandro DO Unavailable Unavailable Carguello J Alejandro DO Unavailable Unavailable Carguello J Alejandro DO Unavailable Unavailable Carguello J Alejandro DO Unavailable Unavailable Carguello, J Alejandro DO Unavailable Unavailable Carguello, J Alejandro DO Unavailable Unavailable Carguello, J Alejandro DO Unavailable Unavailable MARGO PARRA Unavailable Unavailable MARGO PARRA Unavailable Unavailable MARGO PARRA Unavailable Unavailable MARGO PARRA Unavailable Unavailable MARGO PARRA Unavailable Unavailable MARGO PARRA Unavailable Unavailable FIDEL, MARGO PA Unavailable Unavailable [...] Unavailable Unavailable FIDEL, MARGO PA Unavailable Unavailable LESLIE Mcknight, Magy Unavailable Wall SUGAR CONTROLLER, A Dimitri Unavailable [phone] Wall SUGAR CONTROLLER, A Dimitri Unavailable [phone] Wall SUGAR CONTROLLER, A Dimitri Unavailable [phone] Wall SUGAR CONTROLLER, A Dimitri Unavailable [phone] Wall SUGAR CONTROLLER, A Dimitri Unavailable [phone] Wall SUGAR CONTROLLER, A Dimitri Unavailable [phone] KEZIA PRINCE MD Unavailable Unavailable KEZIA PRINCE [...] Unavailable Unavailable KHAIRALLAH, RAMZI MD Unavailable Unavailable Ruby FIELDS MD Unavailable [...] Unavailable Unavailable Ruby FIELDS MD Unavailable Unavailable uRby FIELDS MD Unavailable Unavailable Ruby FIELDS MD Unavailable Unavailable Ruby FIELDS MD Unavailable Unavailable Ruby FIELDS MD Unavailable Unavailable Ruby FIELDS MD Unavailable Unavailable Ruby FIELDS MD Unavailable Unavailable Ruby FIELDS MD Unavailable Unavailable Ruby FIELDS MD Unavailable Unavailable Corey II, Raji PA [...] Unavailable Corey II, Raji PA Unavailable Unavailable Aicha Hadley MD Unavailable Unavailable [...] Unavailable Unavailable Abdulky, Aicha MD Unavailable Unavailable Aicha Hadley MD Unavailable [...] Unavailable Unavailable Aicha Hadley MD Unavailable Unavailable [id number], [id number] Unavailable Jyoti vailable Denise, M Maria C RELIEF MATE Unavailable Unavailable Denise, M Maria C RELIEF MATE Unavailable Unavailable Denise, M Maria C RELIEF MATE Unavailable Unavailable Denise, M Maria C RELIEF MATE Unavailable Unavailable Denise, M Maria C RELIEF MATE Unavailable Unavailable Denise, M Maria C RELIEF MATE Unavailable Unavailable Denise, M Maria C RELIEF MATE Unavailable Unavailable Denise, M Maria C RELIEF MATE Unavailable Unavailable Denise, M Maria C RELIEF MATE Unavailable Unavailable Denise, M Maria C RELIEF MATE Unavailable Unavailable Denise, M Maria C RELIEF MATE Unavailable Unavailable Denise, M Maria C RELIEF MATE Unavailable Unavailable Denise, M Maria C RELIEF MATE Unavailable Unavailable Denise, M Maria C RELIEF MATE Unavailable Unavailable Denise, M Maria C RELIEF MATE Unavailable Unavailable Denise, M Maria C RELIEF MATE Unavailable Unavailable MtaKevin pineda MD Unavailable Unavailable MtanoKevin collins MD Unavailable Unavailable MtanoKevin collins MD Unavailable Unavailable MtanoKevin collins MD Unavailable Unavailable MtanoKevin collins MD Unavailable Unavailable MtanoKevin collins MD Unavailable Unavailable MtanoKevin collins MD Unavailable Unavailable MtaKevin pineda MD Unavailable Unavailable MtanoKevin collins MD Unavailable Unavailable MtanoKevin collins MD Unavailable Unavailable MtanoKevin collins MD Unavailable Unavailable MtanoKevin collins MD Unavailable Unavailable MtanoKevin collins MD Unavailable Unavailable MtanoKevin collins MD Unavailable Unavailable MtanoKevin collins MD Unavailable Unavailable MtaKevin pineda MD Unavailable Unavailable MtanoKevin collins MD Unavailable Unavailable MtanosKevin MD Unavailable Unavailable MtanoKevin collins MD Unavailable Unavailable MtanoKevin collins MD Unavailable Unavailable MtanoKevin collins MD Unavailable Unavailable MtanoKevin collins MD Unavailable Unavailable MtanoKevin collins MD Unavailable Unavailable MtanoKevin collins MD Unavailable Unavailable MtanoKevin collins MD Unavailable Unavailable MtanosKevin MD Unavailable Unavailable MtanoKevin collins MD Unavailable Unavailable MtanosKevin MD Unavailable Unavailable MtanosKevin MD Unavailable Unavailable MtanosKevin MD Unavailable Unavailable MtanosKevin MD Unavailable Unavailable MtanosKevin MD Unavailable Unavailable MtanosKevin MD Unavailable Unavailable MtanosKevin MD Unavailable Unavailable MtanosKevin MD Unavailable Unavailable MtanosKevin MD Unavailable Unavailable MtanosKevin MD Unavailable Unavailable MtanosKevin MD Unavailable Unavailable MtanosKevin MD Unavailable Unavailable MtanosKevin MD Unavailable Unavailable MtanosKevin MD Unavailable Unavailable MtanosKevin MD Unavailable Unavailable MtanosKevin MD Unavailable Unavailable MtanosKevin MD Unavailable Unavailable MtanosKevin MD Unavailable Unavailable MtanosKevin MD Unavailable Unavailable MtanosKevin MD Unavailable Unavailable MtanosKevin MD Unavailable Unavailable MtanosKevin MD Unavailable Unavailable MtanosKevin MD Unavailable Unavailable MtanosKevin MD Unavailable Unavailable MtanosKevin MD Unavailable Unavailable MtanosKevin MD Unavailable Unavailable MtanosKevin MD Unavailable Unavailable MtanosKevin MD Unavailable Unavailable MtanosKevin MD Unavailable Unavailable MtanosKevin MD Unavailable Unavailable MtanosKevin MD Unavailable Unavailable MtanosKevin MD Unavailable Unavailable MtanosKevin MD Unavailable Unavailable MtanosKevin MD Unavailable Unavailable MtanosKevin MD Unavailable Unavailable MtanosKevin MD Unavailable Unavailable MtanosKevin MD Unavailable Unavailable MtanosKevin MD Unavailable Unavailable MtanosKevin MD Unavailable Unavailable MtanosKevin MD Unavailable Unavailable MtanoKevin collins MD Unavailable Unavailable MtanosKevin MD Unavailable Unavailable MtanosKevin MD Unavailable Unavailable MtanosKevin MD Unavailable Unavailable MtanosKevin MD Unavailable Unavailable MtanosKevin MD Unavailable Unavailable MtanosKevin MD Unavailable Unavailable MtanosKevin MD Unavailable Unavailable MtanosKevin MD Unavailable Unavailable MtanosKevin MD Unavailable Unavailable MtanosKevin MD Unavailable Unavailable MtanosKevin MD Unavailable Unavailable MtanosKevin MD Unavailable Unavailable MtanosKevin MD Unavailable Unavailable MtanosKevin MD Unavailable Unavailable MtanosKevin MD Unavailable Unavailable MtanosKevin MD Unavailable Unavailable MtanosKevin MD Unavailable Unavailable MtanosKevin MD Unavailable Unavailable MtanosKevin MD Unavailable Unavailable MtanosKevin MD Unavailable Unavailable MtanosKevin MD Unavailable Unavailable MtanosKevin MD Unavailable Unavailable MtanoKevin collins MD Unavailable Unavailable MtanoKevin collins MD Unavailable Unavailable MtanoKevin collins MD Unavailable Unavailable MtanoKevin collins MD Unavailable Unavailable MtanoKevin collins MD Unavailable Unavailable MtanoKevin collins MD Unavailable Unavailable MtanoKevin collins MD Unavailable Unavailable MtanoKevin collins MD Unavailable Unavailable MtanoKevin collins MD Unavailable Unavailable MtanoKevin collins MD Unavailable Unavailable MtanoKevin collins MD Unavailable Unavailable MtanoKevin collins MD Unavailable Unavailable MtanoKevin collins MD Unavailable Unavailable MtanoKevin collins MD Unavailable Unavailable MtanoKevin collins MD Unavailable Unavailable MtanoKevin collins MD Unavailable Unavailable MtanoKevin collins MD Unavailable Unavailable Kerens, Pema RELIEF MATE Unavailable Unavailable Kerens, Pema RELIEF MATE Unavailable Unavailable Kelsea, Pema RELIEF MATE Unavailable Unavailable Kelsea, Pema RELIEF MATE Unavailable Unavailable Kelsea, Pema RELIEF MATE Unavailable Unavailable Kelsea, Pema RELIEF MATE Unavailable Unavailable Kelsea, Pema RELIEF MATE Unavailable Unavailable Kerens, Pema RELIEF MATE Unavailable Unavailable Kerens, Pema RELIEF MATE Unavailable Unavailable Kerens, Pema RELIEF MATE Unavailable Unavailable Kelsea, Pema RELIEF MATE Unavailable Unavailable Kerens, Pema RELIEF MATE Unavailable Unavailable Kelsea, Pema RELIEF MATE Unavailable Unavailable Kerens, Pema RELIEF MATE Unavailable Unavailable Kelsea, Pema RELIEF MATE Unavailable Unavailable Kerens, Pema RELIEF MATE Unavailable Unavailable Kelsea, Pema RELIEF MATE Unavailable Unavailable Kerens, Pema RELIEF MATE Unavailable Unavailable Kerens, Pema RELIEF MATE Unavailable Unavailable GabKarl davis MD, FACC Unavailable [...] Unavailable GabKarl davis MD, FACC Unavailable Unavailable GabrisKarl MD, FACC Unavailable Unavailable GabKarl davis MD, FACC Unavailable Unavailable Gabris, Karl Mart MD, [facility] Unavailable Unavailable Gabris, Karl Mart MD, [facility] Unavailable Unavailable Gabris, Karl Mart MD, [facility] Unavailable Unavailable Gabris, Karl Mart MD, [facility] Unavailable Unavailable Gabris, Karl Mart MD, [facility] Unavailable Unavailable Gabris, Karl Mart MD, [facility] Unavailable Unavailable Gabris, Karl Mart MD, [facility] Unavailable Unavailable Gabris, Karl Mart MD, [facility] Unavailable Unavailable Gabris, Karl Mart MD, [facility] Unavailable Unavailable Gabris, Karl Mart MD, [facility] Unavailable Unavailable Gabris, Karl Mart MD, [facility] Unavailable Unavailable Gabris, Karl Mart MD, [facility] Unavailable Unavailable Gabris, Karl Mart MD, [facility] Unavailable Unavailable Gabris, Karl Mart MD, [facility] Unavailable Unavailable Gabris, Karl Mart MD, [facility] Unavailable Unavailable Gabris, Karl Mart MD, [facility] Unavailable Unavailable Gabris, Karl Mart MD, [facility] Unavailable Unavailable Gabris, Karl Mart MD, [facility] Unavailable Unavailable Gabris, Karl Mart MD, [facility] Unavailable Unavailable Gabris, Karl Mart MD, [facility] Unavailable Unavailable Gabris, Karl Mart MD, [facility] Unavailable Unavailable Gabris, Karl Mart MD, [facility] Unavailable Unavailable Gabris, Karl Mart MD, [facility] Unavailable Unavailable Gabris, Karl Mart MD, [facility] Unavailable Unavailable Gabris, Karl Mart MD, [facility] Unavailable Unavailable Gabris, Karl Mart MD, [facility] Unavailable Unavailable Gabris, Karl Mart MD, [facility] Unavailable Unavailable Gabris, Karl Mart MD, [facility] Unavailable Unavailable Gabris, Karl Mart MD, [facility] Unavailable Unavailable Gabris, Karl Mart MD, [facility] Unavailable Unavailable Gabris, Karl Mart MD, [facility] Unavailable Unavailable Gabris, Karl Mart MD, [facility] Unavailable Unavailable Gabris, Karl Mart MD, [facility] Unavailable Unavailable Gabris, Karl Mart MD, [facility] Unavailable Unavailable Gabris, Karl Mart MD, [facility] Unavailable Unavailable Gabris, Karl Mart MD, [facility] Unavailable Unavailable Gabris, Karl Mart MD, [facility] Unavailable Unavailable Gabris, Karl Mart MD, [facility] Unavailable Unavailable Gabris, Karl Mart MD, [facility] Unavailable Unavailable Gabris, Karl Mart MD, [facility] Unavailable Unavailable Gabris, Karl Mart MD, [facility] Unavailable Unavailable Gabris, Karl Mart MD, [facility] Unavailable Unavailable Gabris, Karl Mart MD, [facility] Unavailable Unavailable Gabris, Karl Mart MD, [facility] Unavailable Unavailable Gabris, Karl Mart MD, [facility] Unavailable Unavailable Gabris, Karl Mart MD, [facility] Unavailable Unavailable Gabris, Karl Mart MD, FACC Unavailable Unavailable Gabris, Karl Mart MD, [facility] Unavailable Unavailable Gabris, Karl Mart MD, [facility] Unavailable Unavailable Gabris, Karl Mart MD, [facility] Unavailable Unavailable Gabris, Karl Mart MD, [facility] Unavailable Unavailable Gabris, Karl Mart MD, FACC Unavailable Unavailable Gabsusan, Karl Mart MD, FACC Unavailable Unavailable Furnace, A Alisabeth PA Unavailable Unavailable Furnace, A Alisabeth PA Unavailable Unavailable Furnace, A Alisabeth PA Unavailable Unavailable Furnace, A Alisabeth PA Unavailable Unavailable Furnace, A Alisabeth PA Unavailable Unavailable Furnace, A Alisabeth PA Unavailable Unavailable Furnace, A Alisabeth PA Unavailable Unavailable Furnace, A Alisabeth PA Unavailable Unavailable Furnace, A Alisabeth PA Unavailable Unavailable Furnace, A Alisabeth PA Unavailable Unavailable Kravec, Blaze SUGAR CONTROLLER Unavailable Unavailable Kravec, Blaze SUGAR CONTROLLER Unavailable Unavailable Kravec, Blaze SUGAR CONTROLLER Unavailable Unavailable Kravec, Blaze SUGAR CONTROLLER Unavailable Unavailable Kravec, Blaze SUGAR CONTROLLER Unavailable Unavailable Kravec, Blaze SUGAR CONTROLLER Unavailable Unavailable Kravec, Blaze SUGAR CONTROLLER Unavailable Unavailable Kravec, Blaze SUGAR CONTROLLER Unavailable Unavailable Kravec, Blaze SUGAR CONTROLLER Unavailable Unavailable Kravec, Blaze SUGAR CONTROLLER Unavailable Unavailable Kravec, Blaze SUGAR CONTROLLER Unavailable Unavailable Kravec, Blaze SUGAR CONTROLLER Unavailable Unavailable Kravec, Blaze SUGAR CONTROLLER Unavailable Unavailable Kevin Carpenter MD Unavailable Unavailable [...] Unavailable Kevin Carpenter MD Unavailable Unavailable Kevin aCrpenter MD Unavailable Unavailable Kevin Carpenter MD Unavailable [...] Unavailable Unavailable Kevin Carpenter MD Unavailable Unavailable Jayden, Kevin Bronson MD Unavailable Unavailable Kevin Carpenter MD Unavailable Unavailable Jayden, Kevin Bronson MD Unavailable Unavailable Kevin Carpenter MD Unavailable Unavailable Kevin Carpenter MD Unavailable Unavailable Kevin Carpenter MD Unavailable Unavailable Kevin Carpenter MD Unavailable Unavailable Kevin Carpenter MD Unavailable Unavailable Jayden, Kevin Bronson MD Unavailable Unavailable Jayden, Kevin Bronson MD Unavailable Unavailable Kevin Carpenter MD Unavailable Unavailable Kevin Carpenter MD Unavailable Unavailable Kevin Carpenter MD Unavailable Unavailable Kevin Carpenter MD Unavailable Unavailable Kevin Carpenter MD Unavailable Unavailable CarpenterKevin MD Unavailable Unavailable Shaben, E Aicha SUGAR CONTROLLER Unavailable Unavailable Shaben, E Aicha SUGAR CONTROLLER Unavailable Unavailable Shaben, E Aicha SUGAR CONTROLLER Unavailable Unavailable Shaben, E Aicha SUGAR CONTROLLER Unavailable Unavailable Shaben, E Aicha SUGAR CONTROLLER Unavailable Unavailable Shaben, E Aicha SUGAR CONTROLLER Unavailable Unavailable Shaben, E Aicha SUGAR CONTROLLER Unavailable Unavailable Shaben, E Aicha SUGAR CONTROLLER Unavailable Unavailable Shaben, E Aicha SUGAR CONTROLLER Unavailable Unavailable Shaben, E Aicha SUGAR CONTROLLER Unavailable Unavailable Shaben, E Aicha SUGAR CONTROLLER Unavailable Unavailable Shaben, E Aicha SUGAR CONTROLLER Unavailable Unavailable Shaben, E Aicha SUGAR CONTROLLER Unavailable Unavailable Shaben, E Aicha SUGAR CONTROLLER Unavailable Unavailable Shaben, E Aicha SUGAR CONTROLLER Unavailable Unavailable Shaben, E Aicha SUGAR CONTROLLER Unavailable Unavailable Shaben, E Aicha SUGAR CONTROLLER Unavailable Unavailable Shaben, E Aicha SUGAR CONTROLLER Unavailable Unavailable Shaben, E Aicha SUGAR CONTROLLER Unavailable Unavailable Shaben, E Aicha SUGAR CONTROLLER Unavailable Unavailable Shaben, E Aicha SUGAR CONTROLLER Unavailable Unavailable Shaben, E Aicha SUGAR CONTROLLER Unavailable Unavailable Shaben, E Aicha SUGAR CONTROLLER Unavailable Unavailable Shaben, E Aicha SUGAR CONTROLLER Unavailable Unavailable Shaben, E Aicha SUGAR CONTROLLER Unavailable Unavailable Shaben, E Aciha SUGAR CONTROLLER Unavailable Unavailable Shaben, E Aicha SUGAR CONTROLLER Unavailable Unavailable Shaben, E Aicha SUGAR CONTROLLER Unavailable Unavailable Shaben, E Aicha SUGAR CONTROLLER Unavailable Unavailable Shaben, E Aicha SUGAR CONTROLLER Unavailable Unavailable Shaben, E Aicha SUGAR CONTROLLER Unavailable Unavailable Re-disclosure Warning The records that [...] is protected by Article 27-F of the [facility] Public Health law. If you continue you may have access to information: Regarding HIV / AIDS; Provided by facilities licensed or operated by the [facility] Office of Mental Health; or Provided by the [facility] Office for People With Developmental Disabilities. If such information is present, then the following [facility] mandated warning applies: This information [...] law may result in a fine or prison sentence or both. A general authorization for the release of medical or other information is NOT sufficient authorization for further disc losure. 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 Observation Descr iption Data Source(s) COVID Screening Performed completed COVI D Screening Performed MAH[facility]Z ([facility]) packet given Pt Bill of Rights, Priv Prac, Ad Dir completed packet given Pt Bill of Rights, Priv Prac, Ad Dir [facility] ([facility] Note: Pt declined AD packet Allergies and Adverse Reactions Type Description Substance Reaction Status Data Source(s ) Propensity to adverse reactions ATORVASTATIN CALCIUM Atorvastatin C alcium Active [facility] Family History Family Member Name Family Member Gender Family Member Status Date o f Status Description Data Source(s) Unknown Unknown Problem [facility]ENT ([facility]) Unknown Male Problem MEDENT ([facility] () Unknown Female Problem MEDENT ([facility]) Unknown Female Problem MEDENT ([facility]) Unknown Male Problem MEDENT ([facility]) Encounters Encounter Providers Location Date Indications Data Source(s ) Attender: KEZIA PRINCE MD [facility] 08/06/2021 09:20:00 AM EST - 08/06/2021 09:20:00 AM EST Ankylosing spondylitis of multiple sites in spine [facility] ([facility]) Ankylosing spondylitis of multiple sites in spine Attender: Natalie GANDARA 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 07/02/2021 09:40:00 AM EDT - 07/02/2021 09:40:00 AM EDT Ankylosing spondylitis of multiple sites in spine [facility] ([facility]) Ankylosing spondylitis of multiple sites in spine Outpatient [facility] [facility] [address] 06/25/2021 12:00:00 AM EDT eCW1 ([facility]) Attender: Aicha Hadley MD [facility]jaren conk[facility] 06/02/2021 09:40:00 AM EDT - 06/02/2021 09:40:00 AM EDT Ankylosing spondylitis of multiple sites in spine [facility] ([facility]) Ankylosing spondylitis of multiple sites in spine Outpatient Attender: Raji Fields/[place]/Дмитрий/Rein dl 05/20/2021 11:00:00 AM EDT MEDENT ([facility]) Outpatient<td ID="encounterTypeDescripti onID0">Telephonic Encounter</td><td>Blake Alaniz RELIEF MATE</td><td>[facility]</td><td>05/15/2021</td><td>11:20AM</td><td>12:18PM</td><td><content ID="encounterDiagnosisID0-0">Diabetes Mellitus Type 2</content>, <content ID="encounterDiagnosisID0-1">Depression</content>, <content ID="encounterDiagnosisID0-2">Nontoxic Solitary Thyroid Nodule</content></td> Attender: Blake Alaniz [facility] 05/15/2021 11:20:00 AM EDT - 05/15/2021 12:18:44 PM EDT Nontoxic Solitary Thyroid NoduleDepressi onDiabetes Mellitus Type 2 [facility]Z ([facility]) Nontoxic Solitary Thyroid Nodule Depression Diabetes Mellitus Type 2 Attender: KEZIA PRINCE MD [facility] 05/02/2021 11:00:00 AM EDT - 05/02/2021 11:00:00 AM EDT Ankylosing spondylitis of multiple sites in spine [facility] ([facility]) Ankylosing spondylitis of multiple sites in spine <td ID="encounterTypeDescriptionID0">Tel ephonic Encounter</td><td>Pema Enamorado NP</td><td>[facility]</td><td>04/17/2021</td><td>8:18AM</td><td>9:00AM</td><td><content ID="encounterDiagnosisID0-0">Nontoxic Solitary Thyroid Nodule</content>, <content ID="encounterDiagnosisID0-1">Diabetes Mellitus Type 2</content>, <content ID="encounterDiagnosisID0-2">Renal Insufficiency Chronic</content></td>Outpatient Attender: Pema Enamorado NP [facility] 04/17/2021 08:18:00 AM EDT - 04/17/2021 09:00:25 AM EDT Nontoxic Solitary Thyroid NoduleRenal Insufficiency ChronicDiabetes Mellitus Type 2 [facility] ([facility] Nontoxic Solitary Thyroid Nodule Renal Insufficiency Chronic Diabetes Mellitus Type 2 <td ID="encounterTypeDescriptionID0">Emi rt Update</td><td>Magy Mcknight RN</td><td></td><td>04/10/2021</td><td>2:09PM</td><td>11:59PM</td><td></td>Unkno Attender: Magy Mcknight RN 04/10/2021 02 :09:00 PM EDT - 04/10/2021 11:59:00 PM EDT MA[facility]Z ([facility] Unknown<td ID="encounterTypeDescriptionI D0">Chart Update</td><td>Magy Mcknight RN</td><td></td><td>04/03/2021</td><td>3:27PM</td><td>11:59PM</td><td></td> Attender: Magy Mcknight RN 04/03/2021 03:27:00 PM EDT - 04/03/2021 11:59:00 PM EDT [facility] ([facility]) Attender: KEZIA PRINCE MD [facility] 04/03/2021 12:40:00 PM EDT - 04/03/2021 12:40:00 PM EDT Ankylosing spondylitis of multiple sites in spine [facility] ([facility]) Ankylosing spondylitis of multiple sites in spine Outpatient [address] [facility] [address] 04/02/2021 12:00:00 AM EDT eC ([facility]) Attender: Maria C Walker NP [facility] 04/01/2021 03:00:00 PM EDT - 04/01/2021 03:00:00 PM EDT Other fci (current) drug therapyLow back painMalignant neoplasm of tongue, unspecifiedAnkylosing spondylitis of multiple sites in spine [facility] ([facility]) Other fci (current) drug therapy Low back pain Malignant neoplasm of tongue, unspecifie d Ankylosing spondylitis of multiple sites in spine <td ID="encounterTypeDescriptionID0">Chr onic Disease Follow-up</td><td>Pema Enamorado NP</td><td>[facility]</td><td>03/31/2021</td><td>10:42AM</td><td>11:59AM</td><td><content ID="encounterDiagnosisID0-0">Depression</content>, <content ID="encounterDiagnosisID0-1">Diabetes Mellitus Type 2</content>, <content ID="encounterDiagnosisID0-2">Essential Hypertension</content>, <content ID="encounterDiagnosisID0-3">Gerd</content>, <content ID="encounterDiagnosisID0- 4">Lung Neoplasm Uncertain Behavior</content>, <content ID="encounterDiagnosisID0-5">Nonorganic Sleep Apnea</content>, <content ID="encounterDiagnosisID0-6">Tongue Neoplasm Malignant Carcinoma Squamous Cell</content>, <content ID="encounterDiagnosisID0-7">Ankylosing Spondylitis</content>, <content ID="encounterDiagnosisID0-8">Nontoxic Solitary Thyroid Nodule</content></td>Unknown Attender: Pema Enamorado NP [facility] 03/31/2021 10:42:00 AM EDT - 03/31/2021 11:59:34 AM ED T Tongue Neoplasm Malignant Carcinoma Squamous CellTongue Neoplasm Malignant Carcinoma Squamous CellLung Neoplasm Uncertain BehaviorLung Neoplasm Uncertain BehaviorAnkylosing SpondylitisAnkylosing SpondylitisGerdGerdNontoxic Solitary Thyroid NoduleNontoxic Solitary Thyroid NoduleNonorganic Sleep ApneaNonorganic Sleep ApneaEssential HypertensionDepressionEssential HypertensionDepressionDiabetes Mellitus Type 2Diabetes Mellitus Type 2 [facility] ([facility]) Tongue Neoplasm Malignant Carcinoma Squa mous Cell Tongue Neoplasm Malignant Carcinoma Squa mous Cell Lung Neoplasm Uncertain Behavior Lung Neoplasm Uncertain Behavior Ankylosing Spondylitis Ankylosing Spondylitis Gerd Gerd 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 Essential Hypertension Depression Essential Hypertension Depression Diabetes Mellitus Type 2 Diabetes Mellitus Type 2 Outpatient Attender: Raji Fields/[place] [place]/Дмитрий/Rein dl 03/19/2021 10:00:00 AM EDT MEDENT ([facility]) (PN RF) Pain Radiofrequency [address] [place] [address] 03/18/2021 12:00:00 AM EDT eCW1 ([facility]) Attender: Kevin Milian MD [facility] 03/06/2021 11:40:00 AM EDT - 03/06/2021 11:40:00 AM EDT Ankylosing spondylitis of multiple sites in spine [facility] ([facility]) Ankylosing spondylitis of multiple sites in spine Outpatient [address] [facility] [address] 02/06/2021 12:00:00 AM EDT eCW1 ([facility]) Attender: KEZIA PRINCE MD [facility] 02/05/2021 10:20:00 AM EDT - 02/05/2021 10:20:00 AM EDT Ankylosing spondylitis of multiple sites in spine [facility] ([facility]) Ankylosing spondylitis of multiple sites in spine (PN Proc 45) Pain Procedure 45 [address] [place] [address] 01/30/2021 12:00:00 AM EDT eCW1 ([facility]) Unknown [address] [facility] [address] 01/29/2021 12:00:00 AM EDT eCW1 ([facility]) Outpatient [address] [facility] [address] 01/23/2021 12:00:00 AM EDT eCW1 ([facility]) Outpatient Attender: Raji Fields/[place]/Дмитрий/Rein dl 01/14/2021 10:15:00 AM EDT MED[facility] ([facility]) (PN RF) Pain Radiofrequency [address] [place] [address] 01/09/2021 12:00:00 AM EDT eCW1 ([facility]) Unknown [address] [facility] [address] 01/07/2021 12:00:00 AM EDT eCW1 ([facility]) Attender: Kevin Milian MD [facility] 01/03/2021 09:00:00 AM EDT - 01/03/2021 09:00:00 AM EDT Ankylosing spondylitis of multiple sites in spine [facility] ([facility]) Ankylosing spondylitis of multiple sites in spine Attender: ROSA GANDARA [facility] 01/01/2021 11:18:00 AM EDT - 01/01/2021 11:18:00 AM EDT [facility] ([facility]) (PN Proc 45) Pain Procedure 45 [address] [place] [address] 12/09/2020 12:00:00 AM EDT eCW1 ([facility]) Attender: Aicha Hadley MD [facility] 12/05/2020 09:00:00 AM EDT - 12/05/2020 09:00:00 AM EDT Ankylosing spondylitis of multiple sites in spine [facility] ([facility]) Ankylosing spondylitis of multiple sites in spine Unknown [address] [facility] [address] 12/05/2020 12:00:00 AM EDT eCW1 ([facility]) Attender: KEZIA PRINCE [facility] 12/03/2020 11:30:00 AM EDT - 12/03/2020 11:30:00 AM EDT [facility] ( [facility]) Outpatient [address] [facility] [address] 11/26/2020 12:00:00 AM EDT eCW1 ([facility]) Attender: KEZIA PRINCE [facility] 11/20/2020 03:09:00 PM EDT - 11/20/2020 03:09:00 PM EDT [facility] ( [facility]) OutpatientOFFICE/OUTPATIENT VISIT, EST Attender: ROSA GANDARA [facility] 11/19/2020 09:00:00 AM EDT - 11/19/2020 09:00:00 AM ED T Cancer of tongueAnkylosing spondylitis of multiple sites in spine [facility] ([facility]) Cancer of tongue Ankylosing spondylitis of multiple sites in spine Office Visit Attender: Raji Fields/Karen/Дмитрий/Rein dl 11/14/2020 09:30:00 AM EST MEDENT ([facility]) Office Visit, Est Pt., Level 4 PC [address] [place] [address] 10/28/2020 12:00:00 AM EST eCW1 ([facility]) Office Visit Attender: Raji Fields/[place]/Дмитрий/Rein dl 10/17/2020 09:45:00 AM EST MED[facility] ([facility]) Office Visit Attender: ADALI Fields/Karen/Дмитрий/Denis hanley 10/02/2020 10:00:00 AM EST [facility] ([facility]) Unknown<td ID="encounterTypeDescriptionI D1">Chart Prep</td><td>Alejandro Del Rio DO</td><td></td><td>10/29/2020</td><td>09/24/2020 6:52PM</td><td>09/24/2020 11:59PM</td><td></td> Attender: Alejandro Del Rio DO 09/24/2020 06:52:00 PM EST - 09/24/2020 11:59:00 PM EST [facility] ([facility]) <td ID="encounterTypeDescriptionID2">Cor respondence</td><td>Alejandro Del Rio DO</td><td></td><td>10/28/2020</td><td>09/24/2020 11:05AM</td><td>09/24/2020 11:59PM</td><td></td>Unknown Attender: Alejandro Del Rio DO 09/24/2020 11:05:00 AM EST - 09/24/2020 11:59:00 PM EST [facility] ([facility]) <td ID="encounterTypeDescriptionID3">Pre Op</td><td>Aicha Barrera RELIEF MATE</td><td>[facility]</td><td>09/24/2020</td><td>10:27AM</td><td>11:07AM</td><td><content ID="encounterDiagnosisID3-0">Tongue Neoplasm Malignant</content>, <content ID="encounterDiagnosisID3-1">Diabetes Mellitus Type 2</content>, <content ID="encounterDiagnosisID3-2">Essential Hypertension</content>, <content ID="encounterDiagnosisID3-3">Hyperlipidemia</content>, <content ID="encounterDiagnosisID3-4">Nonorganic Sleep Apnea</content>, <content ID="encounterDiagnosisID3-5">Renal Insufficiency Chronic</content></td>Outpatient Attender: [facility] 09/24/2020 10:27:00 AM EST - 09/24/2020 11:07:03 AM EST Tongue Neoplasm MalignantRenal Insufficiency ChronicNonorganic Sleep ApneaHyperlipidemiaEssential HypertensionDiabetes Mellitus Type 2 [facility] ([facility]) Tongue Neoplasm Malignant Renal Insufficiency Chronic Nonorganic Sleep Apnea Hyperlipidemia Essential Hypertension Diabetes Mellitus Type 2 Outpatient<td ID="encounterTypeDescripti onID0">Telephonic Encounter</td><td>Alejandro Del Rio DO</td><td>[facility]</td><td>11/11/2020</td><td>09/24/2020 9:00AM</td><td>09/24/2020 11:59PM</td><td><content ID="encounterDiagnosisID0-0">Diabetes Mellitus Type 2</content>, <content ID="encounterDiagnosisID0-1">Nonorganic Sleep Apnea</content>, <content ID="encounterDiagnosisID0-2">Essential Hypertension</content>, <content ID="encounterDiagnosisID0-3">Tongue Neoplasm Malignant</content>, <content ID="encounterDiagnosisID0-4">Hyperlipidemia</content>, <content ID="encounterDiagnosisID0-5">Renal Insufficiency Chronic</content></td> Attender: Alejandro Del Rio DO [facility] 09/24/2020 09:00:00 AM EST - 09/24/2020 11:59:00 PM EST Tongue Neoplasm MalignantRenal Insuffici ency ChronicNonorganic Sleep ApneaHyperlipidemiaEssential HypertensionDiabetes Mellitus Type 2 [facility] ([facility]) Tongue Neoplasm Malignant Renal Insufficiency Chronic Nonorganic Sleep Apnea Hyperlipidemia Essential Hypertension Diabetes Mellitus Type 2 Outpatient Attender: ADALI Fields/Karen/Дмитрий/Reind l 09/20/2020 09:30:00 AM EST [facility] ([facility]) Outpatient Attender: Raji Fields/[place]/Дмитрий/Rein dl 09/17/2020 07:30:00 AM EST [facility] ([facility]) Unknown [address] [facility] [address] 09/13/2020 12:00:00 AM EST eCW1 ([facility]) Attender: [id number] [facility]_ [id number]: Dimitri Bennett [facility] 09/10/2020 01:08:00 PM EST - 09/10/2020 01:08:00 PM ES T [facility] ([facility]) Outpatient Attender: ADALI Fields/Karen/Дмитрий/Reind l 09/04/2020 12:00:00 PM EST [facility] ([facility] OutpatientOFFICE/OUTPATIENT VISIT, EST Attender: [id number]: Dimitri CALVIN [facility] 09/03/2020 11:00:00 AM EST - 09/03/2020 11:00:00 AM EST Low back painOther moth exterminator (current) drug therapyAnkylosing spondylitis of multiple sites in spine [facility] ([facility]) Low back pain Other fci (current) drug therapy Ankylosing spondylitis of multiple sites in spine Outpatient Attender: ADALI FIELDS MD 08/27/2020 11:46:00 AM EST [facility] Office Visit Attender: Raji Fields/Karen/Дмитирй/Rein dl 08/22/2020 08:30:00 AM EST [facility] ([facility]) Attender: Kusum Curiel PA-C [facility] 08/21/2020 09:15:00 AM EST - 08/21/2020 09:15:00 AM EST [facility] ( [facility]) Outpatient Attender: Audie Fields/Karen/Дмитрий/R eindl 08/20/2020 08:45:00 AM EST MED[facility] ([facility]) Outpatient [address] [place] [address] 08/14/2020 12:00:00 AM EST eCW1 ([facility]) Outpatient Attender: Barron Thomas MD, FACCReferre r: Alejandro Del Rio DO [email or web address] 08/07/2020 12:00:00 AM EST - 08/07/2020 02:35:28 PM EST [facility] <td ID="encounterTypeDescriptionID4">Lab Order</td><td>Alejandro Del Rio DO</td><td></td><td>09/03/2020</td><td>08/05/2020 3:23PM</td><td>08/05/2020 11:59PM</td><td></td>Obstetrics Attender: Alejadnro Del Rio DO 08/05/2020 03:23:00 PM EST - 08/05/2020 11:59:00 PM EST [facility] ([facility]) Unknown<td ID="encounterTypeDescriptionI D5">Chart Update</td><td>Magy Mcknight RN</td><td></td><td>08/05/2020</td><td>2:47PM</td><td>11:59PM</td><td></td> Attender: Magy Mcknight RN 08/05/2020 02:47:00 PM EST - 08/05/2020 11:59:00 PM EST [facility] ([facility]) <td ID="encounterTypeDescriptionID6">Pre Op</td><td>Alejandro Del Rio </td><td>[facility]</td><td>08/05/2020</td><td>9:01AM</td><td>10:06AM</td><td><content ID="encounterDiagnosisID6-0">Diabetes Mellitus Type 2</content>, <content ID="encounterDiagnosisID6-1">Essential Hypertension</content>, <content ID="encounterDiagnosisID6-2">Gerd</content>, <content ID="encounterDiagnosisID6- 3">Hyperlipidemia</content>, <content ID="encounterDiagnosisID6-4">Oral Leukoplakia</content>, <content ID="encounterDiagnosisID6-5">Nonorganic Sleep Apnea</content>, <content ID="encounterDiagnosisID6-6">Abnormal Electrocardiogram</content></td>Outpatient Attender: Alejandro Del Rio DO [facility] 08/05/2020 09:01:00 AM EST - 08/05/2020 10:06:29 AM ES T Abnormal ElectrocardiogramOral LeukoplakiaAbnormal ElectrocardiogramOral LeukoplakiaGerdGerdNonorganic Sleep ApneaNonorganic Sleep ApneaHyperlipidemiaEssential HypertensionHyperlipidemiaEssential Hyp ertensionDiabetes Mellitus Type 2Diabetes Mellitus Type 2 [facility] ([facility]) Abnormal Electrocardiogram Oral Leukoplakia Abnormal Electrocardiogram Oral Leukoplakia Gerd Gerd Nonorganic Sleep Apnea Nonorganic Sleep Apnea Hyperlipidemia Essential Hypertension Hyperlipidemia Essential Hypertension Diabetes Mellitus Type 2 Diabetes Mellitus Type 2 Attender: KEZIA PRINCE MD [facility] 07/23/2020 11:20:00 AM EST - 07/23/2020 11:20:00 AM EST Ankylosing spondylitis of multiple sites in spine [facility] ([facility]) Ankylosing spondylitis of multiple sites in spine Outpatient Attender: ADALI Fields/Karen/Дмитрий/Denis hanley 07/17/2020 09:15:00 AM EST [facility] ([facility]) Outpatient Attender: MARGO meade 07/16/2020 08:00:00 AM EST [facility] ([facility]) Attender: Aicha Hadley MD [facility] 06/24/2020 10:40:00 AM EDT - 06/24/2020 10:40:00 AM EDT Ankylosing spondylitis of multiple sites in spine [facility] ([facility]) Ankylosing spondylitis of multiple sites in spine Immunizations Vaccine Date Status Description Data Source(s) IIV3. This is one of two codes replacing CVX 15, which is being retired. 07/25/2021 12:00:00 AM EST completed Historical Influenza Vaccine [facility] ([facility]) Source: Other Provider Covid 19 Pfizer Vaccine 06/26/2021 12:00:00 AM EDT completed Covid 19 Pfizer Vaccine [facility] ([facility]) Source: Other Provider COVID-19 VACCINE Pfizer 06/26/2021 12:00:00 AM EDT completed NYSIIS Vaccine Series Complete: YESThis Data wa s Submitted to [facility] Via [employer]. Covid 19 Pfizer Vaccine 10/27/2020 12:00:00 AM EST completed Covid 19 Pfizer Vaccine [facility] ([facility]) Source: Other Provider COVID-19 VACCINE Pfizer 10/27/2020 12:00:00 AM EST completed NYSIIS Vaccine Series Complete: YESThis Data wa s Submitted to [facility] [employer]. Covid 19 Pfizer Vaccine 10/06/2020 12:00:00 AM EST completed Covid 19 Pfizer Vaccine [facility] ([facility]) Source: Other Provider COVID-19 VACCINE Pfizer 10/06/2020 12:00:00 AM EST completed NYSIIS Vaccine Series Complete: NOThis Data was Submitted to [facility] [employer]. IIV3. This is one of two codes replacing CVX 15, which is being retired. 07/24/2020 12:00:00 AM EST completed Historical Influenza Vaccine [facility] ([facility]) Note: APPROX ; Source: Other Provider IIV3. This is one of two codes replacing CVX 15, which is being retired. 06/24/2020 02:47:00 PM EDT completed <td ID="[id number]">Influenza</td><td ID="ImmunizationDose- 11">10</td><td>06/24/2020</td><td ID="[id number]"></td><td></td><td ID="[id number]">Complete (Reported)</td><td>Patient</td><td ID="[id number]"></td> MAHNAZ ([facility]) Medications Medication Brand Name Start Date Product Form Dose Route Admi nistrative Instructions Pharmacy Instructions Status Indications Reaction Description Data Source(s) 10 mg 04/19/2021 12:00:00 AM EDT tablet 30 TAKE ONE TABLET BY MOUTH EVERY DAY IN ADDITION TO 20 MG TAKE ONE TABLET BY MOUTH EVERY DAY IN AD DITION TO 20 MG SOLD: 05/06/2021 [facility] Citalopram 10 MG Oral Tablet Citalopram Hydrobromide 1 0 MG Oral Tablet Citalopram Hydrobromide 10 MG Oral Tablet 04/18/2021 12:00:00 AM EDT active citalopram 10 MG Oral Tablet [facility] ([facility]) infliximab 100 MG Injection [Remicade] Remicade 100 mg intravenous solution Remicade 100 mg intravenous solution 04/01/2021 12:00:00 AM EDT 1000 mg INTRAVENOUS active infliximab 100 MG Injection [Remicade] [facility]Gen ([facility]) Ibuprofen 600 MG Oral Tablet Ibuprofen 600 MG Oral Tablet 12:00:00 AM EDT 1 aborted ibuprofen 600 MG Oral Tablet MAHNAZ ([facility]) 3 ML Insulin Glargine 100 UNT/ML Pen Inj elba [Lantus] Lantus SoloStar 100 UNIT/ML Subcutaneous Solution Pen-injector Lantus SoloStar 100 UNIT/ML Subcutaneous Solution Pen-injector 03/31/2021 12:00:00 AM EDT active 3 ML insulin glargine 100 UNT/ML Pen Inj elba [Lantus] STANDISH ([facility]) Atenolol 100 MG Oral Tablet Atenolol 100 MG Oral Tablet 03/07 12:00:00 AM EDT 1 active atenolol 100 MG O ral Tablet STANDISH ([facility]) Lisinopril 40 MG Oral Tablet Lisinopril 40 MG Oral Tablet 12:00:00 AM EDT 1 active lisinopril 40 MG Oral Tablet [facility]ISH ([facility]) 3 ML Insulin, Aspart, Human 100 UNT/ML P en Injector [NovoLog] NovoLOG FlexPen 100 UNIT/ML Subcutaneous Solution Pen-injector NovoLOG FlexPen 100 UNIT/ML Subcutaneous Solution Pen-injector 03/31/2021 12:00:00 AM EDT active 3 ML insulin aspart, human 100 UNT/ML Pe n Injector [NovoLog] STANDISH ([facility]) pantoprazole 40 MG Delayed Release Oral Tablet Pantoprazole Sodium 40 MG Oral Tablet Delayed Release Pantoprazole Sodium 40 MG Oral Tablet Delayed Release 03/31/2021 12:00:00 AM EDT 1 active pantoprazole 40 MG Delayed Release Oral Tablet STANDISH ([facility]) Tylenol 325 MG Oral Capsule Tylenol 325 MG Oral Capsule 03/07 12:00:00 AM EDT active acetaminophen 325 MG Oral Capsule [Tylenol] STANDISH ([facility]) Citalopram 20 MG Oral Tablet Citalopram Hydrobromide 2 0 MG Oral Tablet Citalopram Hydrobromide 20 MG Oral Tablet 03/31/2021 12:00:00 AM EDT 1 active citalopram 20 MG Oral Tablet [facility] ([facility]) Rosuvastatin calcium 20 MG Oral Tablet [Crestor] Crest or 20 MG Oral Tablet Crestor 20 MG Oral Tablet 03/31/2021 12:00:00 AM EDT 1 active rosuvastatin calcium 20 MG Oral Tablet [Crestor] STANDISH ([facility]) Flonase 50 MCG/ACT Nasal Suspension Flonase 50 MCG/ACT Nasal Suspension 03/31/2021 12:00:00 AM EDT 1 active fluticasone propionate 0.05 MG/ACTUAT Metered Dose Nasal [place] [Flonase] STANDISH ([facility]) gabapentin 300 MG Oral Capsule Gabapentin 300 MG Oral Capsule Gabapentin 300 MG Oral Capsule 03/31/2021 12:00:00 AM EDT 1 activ e gabapentin 300 MG Oral Capsule STANDISH ([facility]) Hydrochlorothiazide 25 MG Oral Tablet hydroCHLOROthiaz nik 25 MG Oral Tablet hydroCHLOROthiazide 25 MG Oral Tablet 03/31/2021 12:00:00 AM EDT 1 active hydrochlorothiazide 25 MG Oral T ablet MAHNAZ ([facility]) Citalopram 10 MG Oral Tablet Citalopram Hydrobromide 1 0 MG Oral Tablet Citalopram Hydrobromide 10 MG Oral Tablet 03/31/2021 12:00:00 AM EDT active citalopram 10 MG Oral Tablet [facility] ([facility]) infliximab 100 MG Injection [Remicade] Remicade 100 mg intravenous solution Remicade 100 mg intravenous solution 12/05/2020 12:00:00 AM EDT completed infliximab 100 MG Injection [Rem icade] NextGen ([facility]) infliximab 100 MG Injection [Remicade] Remicade 100 mg intravenous solution Remicade 100 mg intravenous solution 12/05/2020 12:00:00 AM EDT 900 mg INTRAVENOUS active infliximab 100 MG Injection [Remicade] NextGen ([facility]) gabapentin 300 MG Oral Capsule gabapentin 300 mg capsu le gabapentin 300 mg capsule 11/19/2020 12:00:00 AM EDT active take 2 capsule by oral route in AM, 1 capsules at lunch and 2 capsule at bedtime every day [facility] ([facility]) 8 % 10/29/2020 12:00:00 AM EST solution 6 APPLY ONCE A DAY TO TOENAILS AT NIGHT APPLY ONCE A DAY TO TOENAILS AT NIGHT SOLD: 11/09/2020 [facility] ciclopirox 80 MG/ML Topical Solution Ciclopirox 8 % Ciclopir ox 8 % 10/28/2020 12:00:00 AM EST 1.0 {application} suspended Ciclopirox 8 % eCW1 ([facility]) ciclopirox 80 MG/ML Topical Solution Ciclopirox 8 % Ciclopir ox 8 % 10/28/2020 12:00:00 AM EST 1.0 {application} active eCW1 ([facility]) ciclopirox 80 MG/ML Topical Solution Ciclopirox 8 % Ciclopir ox 8 % 10/28/2020 12:00:00 AM EST 1.0 {application} active Ciclopirox 8 % eCW1 ([facility]) ciclopirox 80 MG/ML Topical Solution Ciclopirox 8 % Ciclopir ox 8 % 10/28/2020 12:00:00 AM EST 1.0 {application} active Ciclopirox 8 % eCW1 ([facility]) ciclopirox 80 MG/ML Topical Solution Ciclopirox 8 % Ciclopir ox 8 % 10/28/2020 12:00:00 AM EST 1.0 {application} suspended Ciclopirox 8 % eCW1 ([facility]) ciclopirox 80 MG/ML Topical Solution Ciclopirox 8 % Ciclopir ox 8 % 10/28/2020 12:00:00 AM EST 1.0 {application} suspended Ciclopirox 8 % eCW1 ([facility]) ciclopirox 80 MG/ML Topical Solution Ciclopirox 8 % Ciclopir ox 8 % 10/28/2020 12:00:00 AM EST 1.0 {application} active Ciclopirox 8 % eCW1 ([facility]) ciclopirox 80 MG/ML Topical Solution Ciclopirox 8 % Ciclopir ox 8 % 10/28/2020 12:00:00 AM EST 1.0 {application} suspended Ciclopirox 8 % eCW1 ([facility]) ciclopirox 80 MG/ML Topical Solution Ciclopirox 8 % Ciclopir ox 8 % 10/28/2020 12:00:00 AM EST 1.0 {application} active Ciclopirox 8 % eCW1 ([facility]) ciclopirox 80 MG/ML Topical Solution Ciclopirox 8 % Ciclopir ox 8 % 10/28/2020 12:00:00 AM EST 1.0 {application} suspended Ciclopirox 8 % eCW1 ([facility]) 0.77 % 10/28/2020 12:00:00 AM EST gel 30 APPLY TWO TIMES A DAY TO FEET AND BACK RASH ( USE LOTRIMIN ULTRA TO FEET MID MORNING) APPLY TWO TIMES A DAY TO FEET AND BACK RASH ( USE LOTRIMIN ULTRA TO FEET MID MORNING) SOLD: 11/09/2020 [facility] ciclopirox 80 MG/ML Topical Solution Ciclopirox 8 % Ciclopir ox 8 % 10/28/2020 12:00:00 AM EST 1.0 {application} active Ciclopirox 8 % eCW1 ([facility]) ciclopirox 80 MG/ML Topical Solution Ciclopirox 8 % Ciclopir ox 8 % 10/28/2020 12:00:00 AM EST 1.0 {application} active Ciclopirox 8 % eCW1 ([facility]) ciclopirox 80 MG/ML Topical Solution Ciclopirox 8 % Ciclopir ox 8 % 10/28/2020 12:00:00 AM EST 1.0 {application} suspended Ciclopirox 8 % eCW1 ([facility]) 400-57 mg/5 mL 10/02/2020 12:00:00 AM EST suspension for rec onstitution 200 TAKE 10 MLS BY MOUTH TWO TIMES A DAY FOR 10 DAYS TAKE 10 MLS BY MOUTH TWO TIMES A DAY FOR 10 DAYS SOLD: 10/02/2020 [facility] 5-325 mg 10/02/2020 12:00:00 AM EST tablet 20 TAKE ONE TABLET BY MOUTH EVERY 6 HOURS NEEDED FOR PAIN MAXIMUM DAILY DOSE = 4 TAKE ONE TABLET BY MOUTH EVERY 6 HOURS NEEDED FOR PAIN MAXIMUM DAILY DOSE = 4 SOLD: 10/02/2020 [facility] Acetaminophen 325 MG / Oxycodone Hydrochloride 5 MG Or al Tablet Oxycodone-Acetaminophen 10/02/2020 12:00:00 AM EST ORAL completed MEDENT ([facility], ) Amoxicillin 80 MG/ML / Clavulanate 11.4 MG/ML Oral Reyna pension Amoxicillin/Clavulanate Potassium 10/02/2020 12:00:00 AM EST ORAL completed MEDENT ([facility]) 0.12 % 09/27/2020 12:00:00 AM EST mouthwash 473 SWISH AND SPIT 15 MLS THREE TIMES A DAY SWISH AND SPIT 15 MLS THREE TIMES A DAY SOLD: 09/27/2020 [facility] 325 mg 09/27/2020 12:00:00 AM EST tablet 42 TAKE TWO TABLETS BY MOUTH EVERY 4 HOURS NEEDED FOR MILD PAIN OR FEVER TAKE TWO TABLETS BY MOUTH EVERY 4 HOURS NEEDED FOR MILD PAIN OR FEVER SOLD: 09/27/2020 [facility] 5-325 mg 09/27/2020 12:00:00 AM EST tablet 20 TAKE TWO TABLETS BY MOUTH EVERY 4 HOURS NEEDED FOR MODERATE/SEVERE PAIN MAXIMUM DAILY DOSE = 6 TAKE TWO TABLETS BY MOUTH EVERY 4 HOURS NEEDED FOR MODERATE/SEVERE PAIN MAXIMUM DAILY DOSE = 6 SOLD: 09/27/2020 [facility] 0.3 % 09/17/2020 12:00:00 AM EST drops 5 INSTILL 5 DROP IN THE LEFT EAR TWO TIMES A DAY FOR 7 DAYS INSTILL 5 DROP IN THE LEFT EAR TWO TIMES A DAY FOR 7 DAYS SOLD: 09/17/2020 [facility] Ofloxacin 3 MG/ML Otic Solution Ofloxacin (Otic) 09/17/2020 12:00:00 AM EST AURICULAR active MEDENT ([facility], ) tizanidine 2 MG Oral Tablet TIZANIDINE HCL 09/11/2020 12:00:[address] tablet 180 TAKE TWO TABLETS BY MOUTH AT BEDTIME TAKE TWO TA BLETS BY MOUTH AT BEDTIME SOLD: 09/17/2020 [facility] tizanidine 2 MG Oral Tablet tizanidine 2 mg tablet tizanidin e 2 mg tablet 09/10/2020 12:00:00 AM EST active take 2 tablet by oral route every bedtime NextGen ([facility]) chlorhexidine gluconate 1.2 MG/ML Mouthwash Chlorhexidine Gl uconate 08/15/2020 12:00:00 AM EST ORAL completed MEDENT ([facility], ) Amoxicillin 875 MG / Clavulanate 125 MG Oral Tablet Am oxicillin/Clavulanate Potassium 08/15/2020 12:00:00 AM EST ORAL completed MEDENT ([facility], ) 875-125 mg 08/15/2020 12:00:00 AM EST tablet 20 TAKE ONE TABLET BY MOUTH TWICE A DAY FOR 10 DAYS TAKE ONE TABLET BY MOUTH TWICE A DAY FOR 10 DAYS SOLD: 08/15/2020 [facility] 0.12 % 08/15/2020 12:00:00 AM EST mouthwash 473 SWISH AND SPIT 3 TEASPOONFULS (15 ML) BY MOUTH THREE TIMES A DAY FOR 10 DAYS SWISH AND SPIT 3 TEASPOONFULS (15 ML) BY MOUTH THREE TIMES A DAY FOR 10 DAYS SOLD: 08/15/2020 [facility] 875-125 mg 08/15/2020 12:00:00 AM EST tablet 20 TAKE ONE TABLET BY MOUTH TWICE A DAY FOR 10 DAYS TAKE ONE TABLET BY MOUTH TWICE A DAY FOR 10 DAYS SOLD: 08/28/2020 [facility] 0.12 % 08/15/2020 12:00:00 AM EST mouthwash 473 SWISH AND SPIT 3 TEASPOONFULS (15 ML) BY MOUTH THREE TIMES A DAY FOR 10 DAYS SWISH AND SPIT 3 TEASPOONFULS (15 ML) BY MOUTH THREE TIMES A DAY FOR 10 DAYS SOLD: 08/28/2020 [facility] empagliflozin 10 MG Oral Tablet [Jardiance] Jardiance 10 MG Oral Tablet Jardiance 10 MG Oral Tablet 08/05/2020 12:00:00 AM EST 1 active empagliflozin 10 MG Oral Tablet [Jardiance] MAHNAZ ([facility]) 24 HR Metformin hydrochloride 750 MG Ext ended Release Oral Tablet metFORMIN HCl ER 750 MG Oral Tablet Extended Release 24 Hour metFORMIN HCl ER 750 MG Oral Tablet Extended Release 24 Hour 08/05/2020 12:00:00 AM EST 1 active 24 HR metformin hydrochloride 750 MG Extended Release Oral Tablet MAHNAZ ([facility]) 0.12 % 07/19/2020 12:00:00 AM EST mouthwash [address] 15 MLS IN THE MOUTH BY MUCOUS MEMBRANE ROUTE ONCE A DAY AFTER BRUSHING TEETH, SWISH IN MOUTH FOR 30 SECONDS THEN SPIT OUT PLACE 15 MLS IN THE MOUTH BY MUCOUS MEMB NEMESIO ROUTE ONCE A DAY AFTER BRUSHING TEETH, SWISH IN MOUTH FOR 30 SECONDS THEN SPIT OUT SOLD: 07/24/2020 [facility] tizanidine 2 MG Oral Tablet tizanidine 2 mg tablet tizanidin e 2 mg tablet 05/16/2020 12:00:00 AM EDT completed take 2 tablet by oral route [facility]) POLYETHYLENE GLYCOL 3350 142 MG/ML Oral Solution Polyethylene Glycol 3350 Oral Powder Polyethylene Glycol 3350 Oral Powder 09/18/2019 12:00:00 AM EST 1 aborted polyethylene glycol 3350 170 00 MG Powder for Oral Solution MAHNAZ ([facility]) doxycycline hyclate 100 MG Oral Tablet Doxycycline Hyc late 100 MG Oral Tablet Doxycycline Hyclate 100 MG Oral Tablet 09/15/2019 12:00:00 AM EST 1 aborted doxycycline hyclate 100 MG Oral Tablet MAHNAZ ([facility]) Ondansetron 4 MG Oral Tablet Ondansetron HCl 4 MG Oral Tablet Ondansetron HCl 4 MG Oral Tablet 09/15/2019 12:00:00 AM EST abo rted ondansetron 4 MG Oral Tablet MAHNAZ ([facility]) Metformin hydrochloride 500 MG Oral Tablet metFORMIN H Cl 500MG Oral Tablet metFORMIN HCl 500MG Oral Tablet 02/28/2019 12:00:00 AM EDT 1 aborted metformin hydrochloride 500 MG Oral Tablet MAHNAZ ([facility]) infliximab 100 MG Injection [Remicade] R emicade 100MG Intravenous Solution Reconstituted Remicade 100MG Intravenous Solution Reconstituted 09/06 12:00:00 AM EST 1 aborted inflixi mab 100 MG Injection [Remicade] MAHNAZ ([facility]) Aspirin 81 MG Delayed Release Oral Table t Adult Aspirin EC Low Strength 81MG Oral Tablet Delayed Release Adult Aspirin EC Low Strength 81MG Oral Tablet Delayed Release 09/20/2018 12:00:00 AM EST 1 ab orted aspirin 81 MG Delayed Release Oral Tablet MAHNAZ ([facility]) infliximab 100 MG Injection [Remicade] Remicade 100 mg intravenous solution Remicade 100 mg intravenous solution 09/03/2017 12:00:00 AM EST 900 mg INTRAVENOUS completed infliximab 100 MG Injection [Remicade] NextGen ([facility]) gabapentin 300 mg capsule gabapentin 300 MG Oral Capsule completed take 2 capsule by oral route in AM, 2 capsules at lunch and 1 capsule at bedtime every day [facility] ([facility]) Metformin hydrochloride 500 MG Oral Tablet metformin 5 00 mg tablet metformin 500 mg tablet 1 {tbl} ORAL completed ta ke 1 tablet by oral route 2 times every day with morning and evening meals [facility] ([facility]) Ondansetron 8 MG Oral Tablet ondansetron HCl 8 mg tabl et ondansetron HCl 8 mg tablet 1 {tbl} ORAL completed take 1 tablet by oral route 3 times every day Next[facility] ([facility]) Insurance Providers Payer name Policy type / Coverage type Policy ID Covered democrat ID Covered democrat's relationship to nelson Policy Nelson Plan Information United[employer] Other 0 [id number] Self 0 UnitedHealth[employer] Other 0 [id number] Self 0 UnitedHealth[employer] Other 0 [id number] Self 0 UnitedHealth[employer] Other 0 [id number] Self 0 UnitedHealthcare Other 0 [id number] Self 0 UnitedHealthcare Other 0 [id number] Self 0 UnitedHealthcare Other 0 [id number] Self 0 UnitedHealthcare Other 0 [id number] Self 0 UnitedHealthcare Other 0 [id number] Self 0 UnitedHealthcare Other 0 [id number] Self 0 UnitedHealthcare Other 0 [id number] Self 0 BLUE CROSS [id number] SP [id number] [facility] [address] Part B [id number] Self [id number] MEDICARE [id number] SP [id number] A BLUE CROSS [id number] SP [id number] MEDICARE A [id number] Self [id number] A Medicare Part A [facility] Other 0 [id number] Self 0 MEDICARE [id number] Gloria [id number] Medicare [facility] Medicare Primary [id number] Self [id number] MEDICARE [id number] xxxxxxxxxxx [id number] Medicare [place] Medicare Primary [id number] Self 0 [id number] Medicare Part A [place] Other 0 [id number] Self 0 [place] Other 0 [id number] Self 0 [place] Medicare Primary [id number] Self 0 [id number] [place] Medicare Primary [id number] Self 4 [id number] MEDICARE [id number] SP [id number] A Medicare [place] Other 0 [id number] Self 0 Medicare [place] Other 0 [id number] Self 0 MEDICARE [id number] SP [id number] A EMPIRE PLAN [facility] [id number] Self [id number] [place] Medicare Primary [id number] Self [facility] [id number] SP [id number] BCBS EMPIRE YADI DIV [id number] SP [id number] EXCELLUS BCBS [id number] Gloria YLS [id number] EXCELLUS BCBS [id number] xxxxxxxxxxxx [id number] BLUE CROSS [id number] SP [id number] SELF PAY MEDICARE [id number] SP [id number] ANSI-Commercial [id number] ANSI-Medicare Part B [id number] ANSI-Commercial [id number] ANSI-Commercial [id number] ANSI-Commercial [id number] ANSI-Medicare Part B [id number] [facility] Part B [id number] Self [id number] ANSI-Medicare Part B [id number] ANSI-Commercial [id number] ANSI-Commercial [id number] ANSI-Commercial [id number] ANSI-Commercial [id number] ANSI-Medicare Part B [id number] ANSI-Commercial [id number] ANSI-Commercial [id number] [facility]-Medicare Part B [id number] [facility] Part B [id number] Self [id number] ANSI-Commercial [id number] ANSI-Commercial [id number] ANSI-Medicare Part B [id number] ANSI-Commercial [id number] ANSI-Commercial [id number] ANSI-Medicare Part B [id number] ANSI-Commercial [id number] ANSI-Commercial [id number] ANSI-Medicare Part B [id number] [facility] Part B [id number] Self [id number] Medicare Natl Gov't Servi Medicare Primary [id number] Self [id number] MEDICARE C [id number] S [id number] A [facility] Medigap Part B [id number] Self [id number] Medicare Natl Gov't Servi Medicare Primary [id number] Self [id number] [facility] Medigap Part B [id number] Self [id number] Medicare Natl Gov't Servi Medicare Primary [id number] Self [id number] [facility] Medigap Part B [id number] Self [id number] Medicare Natl Gov't Servi Medicare Primary [id number] Self [id number] [facility] Medigap Part B [id number] Self [id number] [place] Medicare Primary [id number] Self 0 [id number] BCBS EMPIRE YADI DIV [id number] SP [id number] [place] [facility] Medigap Part B [id number] Self [id number] [facility] Medigap Part B [id number] Self [id number] Medicare [place] Medicare Primary [id number] Self 0 [id number] [facility] Medigap Part B [id number] Self [id number] [place]/[facility] Medicare Primary [id number] Self 0 [id number] [facility] Medigap Part B [id number] Self [id number] 01 [place] Medicare Primary [id number] Self 0 [id number] [facility] Medigap Part B [id number] Self [id number] Medicare Natl Gov't Servi Medicare Primary [id number] Self [id number] [facility] Medigap Part B [id number] Self [id number] Medicare Natl Gov't Servi Medicare Primary [id number] Self [id number] [facility] Medigap Part B [id number] Self [place] Medicare Primary [id number] Self BCBS EMPIRE YADI DIV [id number] SP [id number] [facility] Medigap Part B [id number] Self Medicare Natl Gov't Servi Medicare Primary [id number] Self EMPIRE BLUE CROSS BLUE SHIELD -O/P [id number] 18 [id number] MEDICARE -O/P [id number] 18 [id number] MEDICARE -O/P UNAVAILABLE UNAVAILABLE MEDICARE [id number] SP [id number] BCBS EMPIRE YADI DIV [id number] [facility] [id number] SP [id number] BCBS EMPIRE YADI DIV [id number] SP [id number] [facility] [id number] SP [id number] Medicare Part [place] Other 0 [id number] Self 0 Medicare [place] Other 0 [id number] Self 0 BCBS EMPIRE YADI DIV [id number] SP [id number] Medicare Part [place] Other 0 [id number] Self 0 [place] Other 0 [id number] Self [address] [facility] [place] Other 0 [id number] Self 0 [employer] [place] DIV [id number] SP [id number] [employer] [place] DIV [id number] SP [id number] [employer] [place] DIV [id number] SP [id number] [place] Other 0 [id number] Self 0 MEDICARE [id number] SP [id number] MEDICARE C [id number] S [id number] [facility] O [id number] S [id number] [employer] E[employer] [place] DIV [id number] SP [id number] EMPIRE (STATE EMP) O [id number] S [id number] MEDICARE C [id number] S [id number] [employer] [id number] S [id number] MEDICARE MCA [id number] S [id number] MEDICARE [place] [id number] S [id number] ANSI-Commercial [id number] ANSI-Medicare Part [id number] ANSI-Commercial [id number] ANSI-Commercial [id number] ANSI-Commercial [id number] ANSI-Medicare Part B [id number] [employer] E[employer] [place] DIV [id number] SP [id number] [employer] [place] DIV [id number] SP [id number] ANSI-Medicare Part B [id number] ANSI-Commercial [id number] ANSI-Commercial [id number] ANSI-Medicare Part B [id number] ANSI-Commercial [id number] ANSI-Commercial [id number] [facility] B [id number] Self 8 [id number] Problems, Conditions, and Diagnoses Code Display Name Description Problem Type Effective Dates Data Source(s) G47.33 Obstructive sleep apnea (adult) (pediatr ic) Obstructive sleep apnea (adult) (pediatr Diagnosis 08/07/2020 01:58:[address] [facility] E78.2 Mixed hyperlipidemia Mixed hyperlipidemia Diagnosis 08/07/2020 01:58:[address] [facility] I10 Essential (primary) hypertension Essential (primary) h ypertension Diagnosis 08/07/2020 01:58:[address] [facility] R94.31 Abnormal electrocardiogram [ECG] [EKG] A bnormal electrocardiogram (ECG) (EKG) Diagnosis 08/07/2020 01:58:[address] [facility] Z01.818 Encounter for other preprocedural examin ation Encounter for other preprocedural examin Diagnosis 08/07/2020 01:58:[address] [facility] M47.816 [id number] Lumbar Facet arthropathy Problem 06/25/2021 12:00:00 AM EDT eCW1 ([facility]) M47.817 [id number] Spondylosis without myelopathy or radiculopathy, lumbosacral region Problem 01/08/2021 12:00:00 AM EDT eCW1 ([facility]) G89.29 Chronic pain Other chronic pain Problem 12/20/2020 12:0 0:00 AM EDT eCW1 (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) D22.61 [id number] Melanocytic nevi of right upper limb, including shoulder Problem 10/28/2020 12:00:00 AM EST eCW1 ([facility]) D22.62 [id number] Melanocytic nevi of left upper l imb, including shoulder Problem 10/28/2020 12:00:00 AM EST eCW1 ([facility]) Z87.898 [id number] History of atypical nevus Problem 0 10/28/2020 12:00:00 AM EST eCW1 (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) B35.1 [id number] Onychomycosis Problem 10/28/2020 12:00:00 AM EST eCW1 ([facility]) B35.3 [id number] Tinea pedis of both feet Problem 10/28/2020 12:00:00 AM EST eCW1 ([facility]) D22.5 72710490 Nevus of buttock Problem 10/28/2020 12:00:00 AM EST eCW1 ([facility]) G47.33 Obstructive sleep apnea Obstructive sleep apnea 461641 01 08/06/2020 12:00:00 AM EST [facility] E78.5 Hyperlipidemia Hyperlipidemia [id number] 08/06/2020 12:00: 00 AM EST [facility] I10 Essential hypertension Essential hypertension [id number] 08/06/2020 12:00:00 AM EST [facility] R94.31 Abnormal electrocardiogram Abnormal electrocardiogram [id number] 08/06/2020 12:00:00 AM EST [facility] Z01.818 Pre-op evaluation Pre-op evaluation [id number] 08/06/2020 12:00:[address] [facility] Surgeries/Procedures Procedure Description Date Indications Data Source(s) Normal saline solution infus 08/06/2021 12:00:00 AM EST - 08/06/2021 12:00:00 AM EST [facility] ([facility]) Infliximab injection Remicade 08/06/2021 12:00:00 AM EST - 08/06/2021 12:00:00 AM EST [facility] ([facility]) CHEMO, IV INFUSION, ADDL HR 08/06/2021 1 2:00:00 AM EST - 08/06/2021 12:00:00 AM EST [facility] ([facility]) CHEMO, IV INFUSION, 1 HR 08/06/2021 12:0 0:00 AM EST - 08/06/2021 12:00:00 AM EST [facility] ([facility]) Remove Impacted Cerumen 07/21/2021 12:00:00 AM EST [facility] ([facility] ) OFFICE OUTPATIENT VISIT 15 MINUTES 07/21/2021 12:00:00 AM EST [facility] ([facility] ) OFFICE OUTPATIENT VISIT 15 MINUTES 05/20/2021 12:00:00 AM EDT [facility] ([facility], ) Summary provided electronically in CCDA format & reasonable certainty of receipt 05/15/2021 12:00:00 AM EDT - 05/15/2021 12:00:00 AM EDT MAHNAZ ([facility]) Transition in care medication list update 05/15/2021 12:00:00 AM EDT - 05/15/2021 12:00:00 AM EDT MAH[facility]Z ([facility]) records management 05/13/2021 - Chart Prep Performed 05/13/2021 12:00:00 AM EDT - 05/13/2021 12:00:00 AM EDT MAHNAZ ([facility] ) Summary provided electronically in CCDA format & reasonable certainty of receipt 04/17/2021 12:00:00 AM EDT - 04/17/2021 12:00:00 AM EDT MAHNAZ ([facility]) Transition in care medication list update 04/17/2021 12:00:00 AM EDT - 04/17/2021 12:00:00 AM EDT MAHNAZ ([facility]) Operation on bone (procedure) History of orthopedic curtis rgery Radiofrequency treatment of the lumbar - L4-L5, L5-S1. [facility]. See scanned image. KLavereLPN 04/10/2021 12:00:00 AM EDT MAH[facility]Z ([facility]) Glossectomy (procedure) 04/03/2021 12:00 :00 AM EDT - 04/03/2021 12:00:00 AM EDT MAHNAZ ([facility]) Pain Procedure Log 04/02/2021 12:00:00 AM EDT eCW1 ([facility]) Summary provided electronically in CCDA format & reasonable certainty of receipt 03/31/2021 12:00:00 AM EDT - 03/31/2021 12:00:00 AM EDT MAHNAZ ([facility]) Clinical summary provided to patient 12:00:00 AM EDT - 03/31/2021 12:00:00 AM EDT MAH[facility]Z ([facility]) Clinical summary provided to patient 12:00:00 AM EDT - 03/31/2021 12:00:00 AM EDT MAH[facility]Z ([facility]) medical regimen review 03/31/2021 12:00: 00 AM EDT - 03/31/2021 12:00:00 AM EDT [facility] ([facility]) JORGE INHIBITOR/ARB THERAPY RXD/CURRENTLY TAKEN 03/31/2021 12:00:00 AM EDT - 03/31/2021 12:00:00 AM EDT MA[facility]Z ([facility]) Transition in care medication list update 03/31/2021 12:00:00 AM EDT - 03/31/2021 12:00:00 AM EDT MAHNAZ ([facility]) continue current medication except where otherwise noted 03/31/2021 12:00:00 AM EDT - 03/31/2021 12:00:00 AM EDT [facility] ([facility]) OFFICE OUTPATIENT VISIT 15 MINUTES 03/19/2021 12:00:00 AM [facility] Unclassified drugs 03/18/2021 12:00:00 AM EDT eCW1 ([facility]) Completion of procedural visit when meets criteria 03/18/2021 12:00:00 AM EDT eCW1 ([facility]) Normal saline solution infus 02/05/2021 12:00:00 AM EDT - 02/05/2021 12:00:00 AM EDT [facility] ([facility]) Infliximab injection Remicade 02/05/2021 12:00:00 AM EDT - 02/05/2021 12:00:00 AM EDT [facility] ([facility]) CHEMO, IV INFUSION, ADDL HR 02/05/2021 1 2:00:00 AM EDT - 02/05/2021 12:00:00 AM EDT [facility] ([facility]) CHEMO, IV INFUSION, 1 HR 02/05/2021 12:0 0:00 AM EDT - 02/05/2021 12:00:00 AM EDT [facility] ([facility]) Pain Procedure Log 01/23/2021 12:00:00 AM EDT eCW1 ([facility]) Remove Impacted Cerumen 01/14/2021 12:00:00 AM EDT [facility] ([facility], ) OFFICE OUTPATIENT VISIT 15 MINUTES 01/14/2021 12:00:00 AM EDT [facility] ([facility], ) Completion of procedural visit when meets criteria 01/09/2021 12:00:00 AM EDT eCW1 ([facility]) Unclassified drugs 01/09/2021 12:00:00 AM EDT eCW1 ([facility]) Completion of procedural visit when meets criteria 12/09/2020 12:00:00 AM EDT eCW1 ([facility]) OFFICE/OUTPATIENT VISIT, EST 11/19/2020 12:00:00 AM EDT - 11/19/2020 12:00:00 AM EDT [facility] ([facility]) GLOSSECTOMY PRTL W/UNI RADICAL NECK DSJ 10/30/2020 12:00:00 AM EST - 10/30/2020 12:00:00 AM EST MAHNAZ ([facility]) GLOSSECTOMY PRTL W/UNI RADICAL NECK DSJ 09/26/2020 12: 00:00 AM EST [facility] ([facility], ) GLOSSECTOMY PRTL W/UNI RADICAL NECK DSJ 09/26/2020 12: 00:00 AM EST [facility] ([facility], ) GLOSSECTOMY PRTL W/UNI RADICAL NECK DSJ 09/26/2020 12: 00:00 AM EST [facility] ([facility], ) 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 receiving a [facility] visit FQ Visit, established patient 09/24/2020 12:00:00 AM EST MAHNAZ ([facility]) OFFICE OUTPATIENT VISIT 25 MINUTES 09/20/2020 12:00:00 AM EST [facility] ([facility], ) Remove Impacted Cerumen 09/17/2020 12:00:00 AM EST [facility] ([facility], ) OFFICE/OUTPATIENT VISIT, EST 09/03/2020 12:00:00 AM [...] TONGUE ANTERIOR TWO-THIRDS 08/15/2020 12:00:00 AM EST [facility] ([facility], ) EKG with Interpretation and Report EKG with Interpretation a nd Report 08/05/2020 12:00:00 AM EST MAHNAZ ([facility]) 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 operator to a patient receiving a fq visit FQHC Visit, established patient 08/05/2020 12:00:00 AM EST MAH[facility]Z ([facility]) Ekg With Interpretation and Report Ekg With Interpretation a nd Report 08/05/2020 12:00:00 AM EST MAH[facility]Z ([facility]) Remove Impacted Cerumen 07/17/2020 12:00:00 AM EST [facility] ([facility], ) Results ID Date Data Source [id number] 08/01/2021 12:00:00 AM EST [facility] Name Value Range Interpretation Code Description Data Lucille rce(s) Supporting Document(s) SARS-COV 2 PCR (NASAL SWAB) NEGATIVE [place] [facility] This lab was ordered by Diane Lackey #4 and reported by [employer]. ID Date Data Source [id number] 08/01/2021 12:00:00 AM EST [facility] Name Value Range Interpretation Code Description Data Lucille rce(s) Supporting Document(s) SARS-CoV-2 (COVID-19) RNA [Presence] in Respiratory specimen by ROSA ELENA with probe detection Not detected [facility] This lab was ordered by [employer] and r eported by [employer]. ID Date Data Source [id number] 03/31/2021 11:36:00 AM EDT MHANAZ ([facility]) Name Value Range Interpretation Code Description Data Lucille rce(s) Supporting Document(s) Hemoglobin A1c/Hemoglobin.total in Blood 8.4 Above high normal Hgb A1c MAHNAZ ([facility]) ID Date Data Source [id number] 01/25/2021 09:15:00 AM EDT [facility] Name Value Range Interpretation Code Description Data Lucille rce(s) Supporting Document(s) SARS-CoV-2 (COVID-19) RNA [Presence] in Respiratory specimen by ROSA ELENA with probe detection Not Detected [facility] This lab [facility] and reported by [employer] ID Date Data Source [id number] 01/04/2021 10:15:00 AM EDT [facility] Name Value Range Interpretation Code Description Data Lucille rce(s) Supporting Document(s) SARS-CoV-2 (COVID-19) RNA [Presence] in Respiratory specimen by ROSA ELENA with probe detection Not Detected [facility] This lab was ordered by [facility] and reported by [employer]. ID Date Data Source [id number] 12/04/2020 12:00:00 PM EDT [facility] Name Value Range Interpretation Code Description Data Lucille rce(s) Supporting Document(s) SARS-CoV-2 (COVID-19) RNA [Presence] in Respiratory specimen by ROSA ELENA with probe detection Not Detected [facility] This lab was [facility] and reported by [employer]. ID Date Data Source [id number] 12/02/2020 12:00:00 AM EDT [facility] Name Value Range Interpretation Code Description Data Lucille rce(s) Supporting Document(s) SARS-CoV2 Rapid Antigen Not Detected [facility] This lab was ordered by [facility] and reported by [facility]. ID Date Data Source [id number] 11/18/2020 12:00:00 AM EDT [facility] Name Value Range Interpretation Code Description Data Lucille rce(s) Supporting Document(s) SARS-CoV2 Rapid Antigen Not Detected [facility] This lab was ordered by [facility] and reported by [facility]. ID Date Data Source [id number] 09/27/2020 11:38:00 AM EST [facility] ([facility]) Name Value Range Interpretation Code Description Data Lucille rce(s) Supporting Document(s) Glucose [Mass/volume] in Capillary blood by Glucometer 266 mg/dL 83-110 Above high normal [facility] ([facility]) ID Date Data Source [id number] 09/27/2020 08:45:00 AM EST [facility] ([facility]) Name Value Range Interpretation Code Description Data Lucille rce(s) Supporting Document(s) Glucose [Mass/volume] in Capillary blood by Glucometer 265 mg/dL 83-110 Above high normal [facility] ([facility]) ID Date Data Source [id number] 09/27/2020 04:30:00 AM EST [facility] ([facility]) Name Value Range Interpretation Code Description Data Lucille rce(s) Supporting Document(s) Glucose, Fasting 179 mg/dL 70-100 Above high normal [facility] ([facility]) Creatinine For GFR 1.39 mg/dL 0.70-1.30 Above high normal [facility] Blood Urea Nitrogen 28 mg/dL 7-18 Above high normal [facility] Glomerular Filtration Rate 53.5 Normal (applies to n on-numeric results) [facility]) <content>Units are mL/min/1.73 m2</content>
<content></content>
<content>Chronic Kidney Disease Staging per NKF:</content>
<content></content>
<content>Stage I & II GFR >=60 Normal to Mildly Decreased</content>
<content>Stage III GFR 30- 59 Moderately Decreased</content>
<content>Stage IV GFR 15-29 Severely Decreased</content>
<content>Stage V GFR <15 Very Little GFR Left</content>
<content>ESRD GFR <15 on SAFETY LEADER</content>
<content></content> Potassium Serum 5.1 meq/L 3.5-5.1 Normal (applies to non-numeric results) [facility] ([facility], ) Chloride Level 102 meq/L 98-107 Normal (applies to non-numeric r esults) [facility] ([facility], ) Sodium Level 134 meq/L 136-145 Below low normal [facility] ([facility], ) Carbon Dioxide Level 27 meq/L 21-32 Normal (applies to non-num darvin results) [facility] ([facility], ) Anion Gap 5 meq/L 8-16 Below low normal [facility] ( [facility], ) Ast/Sgot 17 U/L 7-37 Normal (applies to non-numeric resul ts) [facility] ([facility], ) Calcium Level 8.9 mg/dL 8.8-10.2 Normal (applies to non-numeric re sults) [facility] ([facility], ) Alt/SGPT 24 U/L 12-78 Normal (applies to non-numeric resul ts) [facility] ([facility], ) Alkaline Phosphatase 70 U/L 45-117 Normal (applies to non-num darvin results) [facility] ([facility], ) Total Protein 7.2 GM/DL 6.4-8.2 Normal (applies to non-numeric re sults) [facility] ([facility], ) Bilirubin,Total 0.7 mg/dL 0.2-1.0 Significant change down [facility] ([facility], ) Albumin/Globulin Ratio 1.0 Normal (applies to non-n umeric results) [facility] ([facility]) Albumin 3.6 GM/DL 3.2-5.2 Normal (applies to non-numeric resul ts) [facility]) ID Date Data Source [id number] 09/27/2020 04:30:00 AM EST [facility] ([facility]) Name Value Range Interpretation Code Description Data Lucille rce(s) Supporting Document(s) White Blood Count 10.2 10 4.0-10.0 Above high normal [facility] ([facility]) Red Blood Count 5.25 10 4.30-6.10 Normal (applies to non-numeric results) [facility] ([facility]) Hematocrit 46.7 % 42.0-52.0 Normal (applies to non-numeric resul ts) [facility]) Hemoglobin 15.3 g/dL 13.5-17.5 Normal (applies to non-numeric resul ts) [facility]) Mean Corpuscular Volume 89.0 fl 80.0-96.0 Normal ( applies to non-numeric results) [facility]) Mean Corpuscular Hemoglobin 29.1 pg 27.0-33.0 Norm al (applies to non-numeric results) [facility]) Mean Corpuscular HGB Conc 32.8 g/dL 32.0-36.5 Normal (applies to non-numeric results) [facility]) Red Cell Distribution Width 12.8 % 11.5-14.5 Norm al (applies to non-numeric results) [facility] ([facility]) Platelet Count, Automated 201 10 150-450 Normal (applies to non-numeric results) [facility]) Nucleated Red Blood Cell % 0.0 % 0-0 Normal (applies to n on-numeric results) [facility]) ID Date Data Source [id number] 09/26/2020 07:25:00 PM EST [facility] ([facility]) Name Value Range Interpretation Code Description Data Lucille rce(s) Supporting Document(s) Glucose [Mass/volume] in Capillary blood by Glucometer 192 mg/dL 83-110 Above high normal [facility] ([facility]) ID Date Data Source [id number] 09/26/2020 04:57:00 PM EST [facility] ([facility]) Name Value Range Interpretation Code Description Data Lucille rce(s) Supporting Document(s) Glucose [Mass/volume] in Capillary blood by Glucometer 194 mg/dL 83-110 Above high normal [facility] ([facility]) ID Date Data Source [id number] 09/26/2020 12:50:00 PM [facility] Name Value Range Interpretation Code Description Data Lucille rce(s) Supporting Document(s) Glucose, Fasting 232 mg/dL 70-100 Above [facility] Blood Urea Nitrogen 24 mg/dL 7-18 Above high normal [facility] ([facility]) Creatinine For GFR 1.64 mg/dL 0.70-1.30 Above high normal [facility] ([facility]) Glomerular Filtration Rate 44.2 Normal (applies to n on-numeric results) [facility] ([facility]) <content>Units are mL/min/1.73 m2</content>
<content></content>
<content>Chronic Kidney Disease Staging per NKF:</content>
<content></content>
<content>Stage I & II GFR >=60 Normal to Mildly Decreased</content>
<content>Stage III GFR 30- 59 Moderately Decreased</content>
<content>Stage IV GFR 15-29 Severely Decreased</content>
<content>Stage V GFR <15 Very Little GFR Left</content>
<content>ESRD GFR <15 on SAFETY LEADER</content>
<content></content> Sodium Level 137 meq/L 136-145 Normal (applies to non-numeric res ults) [facility] ([facility]) Potassium Serum 5.1 meq/L 3.5-5.1 Normal (applies to non-numeric results) [facility] ([facility]) Chloride Level 103 meq/L 98-107 Normal (applies to non-numeric r esults) [facility] ([facility]) Carbon Dioxide Level 26 meq/L 21-32 Normal (applies to non-num darvin results) [facility] ([facility]) Anion Gap 8 meq/L 8-16 Normal (applies to non-numeric resul ts) [facility] ([facility]) Calcium Level 9.5 mg/dL 8.8-10.2 Normal (applies to non-numeric re sults) [facility] ([facility]) Ast/Sgot 18 U/L 7-37 Normal (applies to non-numeric resul ts) [facility] ([facility]) Alt/SGPT 26 U/L 12-78 Normal (applies to non-numeric resul ts) [facility] ([facility]) Alkaline Phosphatase 76 U/L 45-117 Normal (applies to non-num darvin results) [facility] ([facility]) Total Protein 7.6 GM/DL 6.4-8.2 Normal (applies to non-numeric re sults) [facility] ([facility]) Bilirubin,Total 0.4 mg/dL 0.2-1.0 Normal (applies to non-numeric results) [facility] ([facility]) Albumin/Globulin Ratio 1.1 Normal (applies to non-n umeric results) [facility] ([facility]) Albumin 4.0 GM/DL 3.2-5.2 Normal (applies to non-numeric resul ts) [facility] ([facility]) ID Date Data Source [id number] 09/26/2020 12:50:00 PM EST [facility] ([facility]) Name Value Range Interpretation Code Description Data Lucille rce(s) Supporting Document(s) White Blood Count 11.2 10 4.0-10.0 Above high normal [facility] ([facility]) Red Blood Count 5.46 10 4.30-6.10 Normal (applies to non-numeric results) [facility] ([facility]) Hemoglobin 15.6 g/dL 13.5-17.5 Normal (applies to non-numeric resul ts) [facility] ([facility]) Hematocrit 48.8 % 42.0-52.0 Normal (applies to non-numeric resul ts) [facility]) Mean Corpuscular Volume 89.4 fl 80.0-96.0 Normal ( applies to non-numeric results) [facility]) Mean Corpuscular HGB Conc 32.0 g/dL 32.0-36.5 Normal (applies to non-numeric results) [facility]) Mean Corpuscular Hemoglobin 28.6 pg 27.0-33.0 Norm al (applies to non-numeric results) [facility] ([facility]) Platelet Count, Automated 208 10 150-450 Normal (applies to non-numeric results) [facility]) Red Cell Distribution Width 12.9 % 11.5-14.5 Norm al (applies to non-numeric results) [facility]) Nucleated Red Blood Cell % 0.0 % 0-0 Normal (applies to n on-numeric results) [facility]) ID Date Data Source [id number] 09/26/2020 11:57:00 AM [facility]) Name Value Range Interpretation Code Description Data Lucille rce(s) Supporting Document(s) Glucose [Mass/volume] in Capillary blood by Glucometer 193 mg/dL 83-110 Above high normal [facility]) ID Date Data Source [id number] 09/26/2020 08:24:00 AM EST [facility]) Name Value Range Interpretation Code Description Data Lucille rce(s) Supporting Document(s) Surgical pathology study Laboratory test result [facility]) <content>FINAL DIAGNOSIS</content>
< content></content>
<content>BRADEN - Left lateral tongue inferior biopsy(A), left lateral tongue</content>
<content>excision (B) and re-excision inferior margin left lateral oral</content>
<content>tongue(E).:</content>
<content>Superficially invasive squamous cell carcinoma, seen in a background of</conten t>
<content>predominantly squamous cell carcinoma in situ, in aggregate</content>
<content>approximately 2cm in largest surface</content>
<content>dimension, with maximal thickness of 3-4mm and maximal depth of invasion</content>
<content>of</content>
<content>1-2mm.</content>
< content>All resection margins appear free of invasive and in situ carcinoma.</content>
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
<content>margins, follow up is recommended as clinically indicated, as patient is</content>
<content>on immunosuppressive agent.</content>
<content>P16 stain is negative.</content>
<content>See also previous report [id number].</content>
<content>See summary report.</content>
<content></content>
<content>C - Contents of left neck, level I, II, and III, dissection:</content>
<content>Multiple lymph nodes are noted, negative for malignancy.</content>
<content>1 lymph node from level I.</content>
<content>2-3 lymph nodes from level II.</content>
<content>3 lymph nodes from level III.</content>
<content></content>
<content>D - Submandibular gland, excision:</content>
<content>Submandibular gland, without significant pathologic diagnosis.</content>
<content></content>
<content></content>
<content></content>
<content ></content>
<content>Summary:</content>
<content>Tumor site: Left lateral oral tongue</content>
<content>Grade: superficially invasive moderately differentiated, keratinizing</content>
<content>squamous cell carcinoma, seen in a background of in-situ carcinoma.</content>
<content> Size: The lesion including in-situ and invasive is >1 and <2cm</content>
<content>Thickness: Maximally 3-4mm(also includes estimate from previous biopsy</content>
<content>findings of the ulcerated lesion)</content>
<content>Depth of invasion:1-2mm(also includes estimate from previous biopsy</content>
<content>findings of the ulcerated lesion)</content>
<content>Lymph/vascular invasion: not noted</content>
<content>Perineural invasion: not noted</content>
<content>P16 IHC: Negative</content>
<content>Margins: free of carcinoma and high grade dysplasia</content>
<content>pT1 N0 MX</content>
<content></content>
<content>4/TR</content>
<content></ content>
<content>10/01/2020 - 0713</content>
<content></content>
<content>CLINICAL DIAGNOSIS</content>
<content></content>
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
<content>09/26/2020 - 1323</content>
<content></content>
<content>GROSS DIAGNOSIS</content>
<content></content>
<content>A - Received fresh labeled "left lateral tongue, inferior" is a 0.5 x</content>
<content>0.5 x 0.2 cm. portion of mucosa. All frozen. Frozen section diagnosis</content>
<content>is "mild hyperkeratosis, no invasive or in situ carcinoma is</content>
<content>identified". The specimen was received at 8:29 AM and reported at 8:46</content>
<content>AM by Dr. Jauregui to Dr. Fields.The frozen remainder in one.</content>
<content></content>
<content>B - Received fresh labeled "left lateral tongue, check margins, 1 suture</content>
<content>is posterior and 2 sutures are superior" is a 2.5 x 2.3 x 1.3 cm thick</content>
<content>portion of tongue. Two stitches are noted designating the superior</content>
<content>aspect and one stitch designating the posterior aspect. The two sutures</content>
<content>are arbitrarily considered as 12 o'clock and the one suture as 3</content>
<content>o'clock. The mucosal surface does not show ulceration or exophytic</content>
<content>growth. It is inked, the 12 to 3 to 6 o'clock is inked yellow, the 6 to</content>
<content>9 to 12 o'clock is inked black. The margins are sectioned en face and</content>
<content> frozen as follows; (B1) 11 to 12 to 2 o'clock margin, (B2) 2 to 3 to 5</content>
<content>o'clock margin, (B3) 5 to 6 to 7 o'clock margin, (B4) 8 to 9 to 11</content>
<content>o'clock margin. Frozen section diagnosis is "squamous cell carcinoma in</content>
<content>situ with focal superficial invasion is noted in the section from 5 to 6</content>
<content>to 7 o'clock area, immediately opposite the double suture jordan/superior</content>
<content>(probable inferior aspect), other margins appear free". The specimen</content>
<content>was received at 8:44 AM and reported to Dr. Fields at 9:35 AM by </content>
<content>Haghir. The frozen remainders are submitted sequentially in (B1-B4).</content>
<content> The rest of the specimen is sectioned serially and submitted entirely in</content>
<content>(B5-B8).</content>
<content></content>
<conten t>C - Received in formalin labeled "contents of left neck level 1, 2 & 3,</content>
<content># of atif represent levels" is an approximately 5.5 x 2.5 x 1 cm.</content>
<content>portion of irregular soft tissue containing lymph nodes. At one end two</content>
<content>atif are noted, consistent with level II and another end three</content>
<content> atif, consistent with level III. It is sectioned serially starting</content>
<content>from the end closer to the two sutures and submitted entirely as</content>
<content>follows; (C1) level I, (C2) level II, (C3 & C4) level III. The</content>
<content>specimens entirely submitted in four blocks.</content>
<content></content>
<content>D - Received in formalin labeled "submandibular gland" is a 3.5 x 2.5 x</content>
<content>2.5 cm. submandibular gland. Sectioning reveals preserved lobular</content>
<content>architecture. Stereotyper in one.</content>
<content></content>
<content>E - Received in formalin labeled "re-excision inferior margin left</content>
<content>lateral oral tongue, one suture posterior, two sutures inferior" is a</content>
<content>crescent shaped portion of mucosa, approximately 4.5 x maximally 0.7 x</content>
<content>0.6 cm. Two sutures are noted on the specimen on one edge, single</content>
<content>suture designated as posterior and double suture as inferior. The</content>
<content>specimen is inked on the new margin, sectioned serially starting from</content>
<content>the single suture and submitted as follows; (E1) contains area of single</content>
<content>suture, (E2) area of double suture, (E3) the rest of the specimen.</content>
<content>- SH</content>
<content>10/01/2020 - 712</content>
<content></content>
<content>Signed Hector Jauregui MD 10/01/2020712</content>
<content></content> ID Date Data Source [id number] 09/26/2020 07:13:00 AM EST [facility] ([facility], ) Name Value Range Interpretation Code Description Data Lucille rce(s) Supporting Document(s) Glucose [Mass/volume] in Capillary blood by Glucometer 153 mg/dL 83-110 Above high normal [facility] ([facility], ) ID Date Data Source [id number] 09/21/2020 10:00:00 AM EST [facility] Name Value Range Interpretation Code Description Data Lucille rce(s) Supporting Document(s) SARS coronavirus 2 RNA Not Detected [facility] [place] This lab was ordered by [facility] and reported by [facility]. ID Date Data Source [id number] 09/03/2020 11:43:00 AM EST [facility] ([facility]) Name Value Range Interpretation Code Description Data Lucille rce(s) Supporting Document(s) <0.2 0.0-0.5 CRP [facility] ([facility]) ID Date Data Source [id number] 09/03/2020 11:43:00 AM EST [facility] ([facility]) Name Value Range Interpretation Code Description Data Lucille rce(s) Supporting Document(s) 53.1 mL/min/1.73 eGFR [place] [facility] ([facility]) 1.5 mg/dL 0.9-1.2 Above high normal CREATININE [facility] ([facility]) 45.9 mL/min/1.73m eGFR Non- A merican [facility] ([facility]) ID Date Data Source [id number] 09/03/2020 11:43:00 AM EST [facility] ([facility]) Name Value Range Interpretation Code Description Data Lucille rce(s) Supporting Document(s) 19 U/L 15-37 AST [facility] ID Date Data Source [id number] 09/03/2020 11:43:00 AM EST [facility] ([facility]) Name Value Range Interpretation Code Description Data Lucille rce(s) Supporting Document(s) 34 U/L 30-65 ALT [facility] ID Date Data Source [id number] 09/03/2020 11:43:00 AM EST [facility] ([facility]) Name Value Range Interpretation Code Description Data Ulcille rce(s) Supporting Document(s) 11 mm/Hr 0-20 ESR [facility] ID Date Data Source [id number] 09/03/2020 11:43:00 AM EST [facility] ([facility]) Name Value Range Interpretation Code Description Data Lucille rce(s) Supporting Document(s) 5.81 10*6/uL 4.00-5.90 RBC [facility] ([facility]) 7.0 10*3/uL 3.7-10.1 WBC [facility] ([facility]) 52.7 % 39.0-55.0 HCT [facility] 17.1 g/dL 13.5-18.0 HGB [facility] ([facility]) 90.8 fL 70.0-100.0 MCV [facility] ([facility]) 12.4 % 10.0-15.0 RDW [facility] 29.4 pg 26.0-34.0 MCH [facility] ([facility]) ID Date Data Source [id number] 08/27/2020 03:04:00 PM EST [facility] ([facility]) Name Value Range Interpretation Code Description Data Lucille rce(s) Supporting Document(s) Creatinine For GFR 1.57 mg/dL 0.70-1.30 Above high normal [facility]) Glomerular Filtration Rate 46.5 Normal (applies to n on-numeric results) [facility]) <content>Units are mL/min/1.73 m2</content>
<content></content>
<content>Chronic Kidney Disease Staging per NKF:</content>
<content></content>
<content>Stage I & II GFR >=60 Normal to Mildly Decreased</content>
<content>Stage III GFR 30- 59 Moderately Decreased</content>
<content>Stage IV GFR 15-29 Severely Decreased</content>
<content>Stage V GFR <15 Very Little GFR Left</content>
<content>ESRD GFR <15 on SAFETY LEADER</content>
<content></content> ID Date Data Source [id number] 08/27/2020 03:04:00 PM EST [facility] ([facility]) Name Value Range Interpretation Code Description Data Lucille rce(s) Supporting Document(s) Urea nitrogen [Mass/volume] in Serum or Plasma 23 mg/dL 7-18 Above high normal [facility] ([facility]) ID Date Data Source [id number] 08/15/2020 09:36:00 AM EST [facility] ([facility]) Name Value Range Interpretation Code Description Data Lucille rce(s) Supporting Document(s) Surgical pathology study Laboratory test result [facility]) FINAL DIAGNOSIS A-Left lateral oral tongue, superior, [...] 1355 Signed ARTURO PACHECO MD 08/16/2020 1310 ID Date Data Source [id number] 08/15/2020 07:12:00 AM EST [facility] ([facility]) Name Value Range Interpretation Code Description Data Lucille rce(s) Supporting Document(s) Glucose [Mass/volume] in Capillary blood by Glucometer 152 mg/dL 83-110 Above high normal [facility] ([facility]) ID Date Data Source [id number] 08/10/2020 11:45:00 AM EST [facility] Name Value Range Interpretation Code Description Data Lucille rce(s) Supporting Document(s) SARS coronavirus 2 RNA [facility] This lab was ordered by [facility] and reported by [facility]. ID Date Data Source [id number] 08/05/2020 09:50:00 AM EST [facility] ([facility]) Name Value Range Interpretation Code Description Data Lucille rce(s) Supporting Document(s) Hemoglobin A1c/Hemoglobin.total in Blood 7.0 Abnormal (applies to non-numeric results) Hgb A1c [facility] ([facility]) ID Date Data Source [id number] 06/26/2020 12:00:00 AM EDT [facility] Name Value Range Interpretation Code Description Data Lucille rce(s) Supporting Document(s) SARS coronavirus 2 Ag [facility] This lab was ordered by [facility] and reported by [facility] Procedure Social History Code Duration Value Status Description Data Source(s ) Caffeine Use Details 08/06/2021 12:00:00 AM EST comple claude coffee and soda, 5 cups [facility] ([facility]) Smoking 08/06/2021 12:00:00 AM EST Unknown if ever smoked comp leted Unknown if ever smoked [facility] ([facility]) Smoking 06/25/2021 12:00:00 AM EDT Never Smoker completed Never S moker eCW1 ([facility]) Smoking 05/15/2021 12:00:00 AM EDT Ex-smoker (finding) complet ed Ex-smoker (finding) [facility] ([facility]) Smoking 04/17/2021 12:00:00 AM EDT Ex-smoker (finding) complet ed Ex-smoker (finding) [facility] ([facility]) Smoking 04/02/2021 12:00:00 AM EDT Never Smoker completed Never S moker eCW1 ([facility]) Smoking 03/31/2021 12:00:00 AM EDT Never smoked tobacco (findi ng) completed Never smoked tobacco (finding) [facility] ([facility]) Smoking 03/17/2021 12:00:00 AM EDT Never Smoker completed Never S moker eCW1 ([facility]) Smoking 02/06/2021 12:00:00 AM EDT Never Smoker completed Never S moker eCW1 ([facility]) Smoking 01/29/2021 12:00:00 AM EDT Never Smoker completed Never S moker eCW1 ([facility]) Smoking 01/29/2021 12:00:00 AM EDT Never Smoker completed Never S moker eCW1 ([facility]) Smoking 01/23/2021 12:00:00 AM EDT Never Smoker completed Never S moker eCW1 ([facility]) Smoking 01/09/2021 12:00:00 AM EDT Never Smoker completed Never S moker eCW1 ([facility]) Smoking 01/07/2021 12:00:00 AM EDT Never Smoker completed Never S moker eCW1 ([facility]) Smoking 12/05/2020 12:00:00 AM EDT Never Smoker completed Never S moker eCW1 ([facility]) Smoking 12/05/2020 12:00:00 AM EDT Never Smoker completed Never S moker eCW1 ([facility]) Smoking 11/26/2020 12:00:00 AM EDT Never Smoker completed Never S moker eCW1 ([facility]) Alcohol Use Details 11/19/2020 12:00:00 AM EDT complet ed all types 3 drinks occasion [facility] ([facility]) 11/19/2020 12:00:00 AM EDT Ex-cigarette smoker completed Ex-cigarette smoker [facility] ([facility]) Smoking 11/11/2020 12:00:00 AM EST Ex-smoker (finding) complet ed Ex-smoker (finding) [facility] Assertion 11/11/2020 12:00:00 AM EST Finding relat ing to drug misuse behavior (finding) completed Finding relating to drug misuse behavior (finding) [facility] ([facility]) Assertion 11/11/2020 12:00:00 AM EST Current drinker of al cohol (finding) completed Current drinker of alcohol (finding) MAHNAZ ([facility]) Smoking 11/11/2020 12:00:00 AM EST Ex-smoker (finding) complet ed Ex-smoker (finding) [facility]ISH ([facility]) Assertion 11/11/2020 12:00:00 AM EST Finding relat ing to drug misuse behavior (finding) completed Finding relating to drug misuse behavior (finding) [facility] ([facility]) Assertion 11/11/2020 12:00:00 AM EST Current drinker of al cohol (finding) completed Current drinker of alcohol (finding) [facility] ([facility]) Smoking 10/28/2020 12:00:00 AM EST Never Smoker completed Never S moker eCW1 ([facility]) Smoking 08/20/2020 12:00:00 AM EST Non Smoker completed Non Smoke r [facility] ([facility]) Smoking 08/14/2020 12:00:00 AM EST Never Smoker completed Never S moker eCW1 ([facility]) Smoking 08/14/2020 12:00:00 AM EST Never Smoker completed Never S moker eCW1 ([facility]) Alcohol intake 08/07/2020 12:00:00 AM EST Yes completed [facility] Smoking 08/07/2020 12:00:00 AM EST Never smoker completed Never s moker [facility] Smoking 08/05/2020 12:00:00 AM EST Ex-smoker (finding) complet ed Ex-smoker (finding) [facility] ([facility]) Vital Signs ID Date Data Source UNK Name Value Range Interpretation Code Description Data Source(s) Systolic blood pressure 140 mm[Hg] 140 mm[Hg] N [facility] ([facility]) Diastolic blood pressure 80 mm[Hg] 80 mm[Hg] [facility] ([facility]) Body weight 113.398 kg 113.398 kg [facility]) Systolic blood pressure 138 mm[Hg] 138 mm[Hg] N [facility] ([facility]) Diastolic blood pressure 86 mm[Hg] 86 mm[Hg] [facility] ([facility]) Heart rate 88 /min 88 /min [facility] Body temperature 36.56 Cherrie 36.56 Cherrie [facility] ([facility]) Respiratory rate 17 /min 17 /min [facility] ([facility]) Body height 70 [in_i] 70 [in_i] [facility] ([facility]) 5'10" Body weight 251.00 [lb_av] 251.00 [lb_av] MEDEN T ([facility]) Body mass index (BMI) [Ratio] 36.0 kg/m2 36.0 k g/m2 [facility]) [place] body weight 166 [lb_av] 166 [lb_av] MEDEN T ([facility]) Body weight 113.854 kg 113.854 kg [facility] ([facility]) Body surface area Derived from formula 2.30 m2 2.30 m2 [facility] ([facility]) Body weight 252 [lb_av] 252 [lb_av] eCW1 ([facility]) Body weight 114.31 kg 114.31 kg eCW1 ([facility]) Body height 70 [in_i] 70 [in_i] eCW1 ([facility]) Body mass index (BMI) [Ratio] 36.15 kg/m2 36.15 kg/m2 eCW1 ([facility]) Heart rate 60 /min 60 /min eCW1 ([facility]) Respiratory rate 18 /min 18 /min eCW1 ([facility] Body temperature 98.4 [degF] 98.4 [degF] eCW1 ( [facility]) Systolic blood pressure 120 mm[Hg] 120 mm[Hg] e CW1 ([facility]) Diastolic blood pressure 63 mm[Hg] 63 mm[Hg] eCW1 ([facility]) Body weight 251.50 [lb_av] 251.50 [lb_av] MEDEN T ([facility]) Body mass index (BMI) [Ratio] 36.1 kg/m2 36.1 k g/m2 [facility] ([facility]) [place] body weight 166 [lb_av] 166 [lb_av] MEDEN T ([facility]) Body height 70 [in_i] 70 [in_i] [facility] ([facility] ) 5'10" Body weight 114.080 kg 114.080 kg [facility] ([facility]) Body surface area Derived from formula 2.30 m2 2.30 m2 [facility] ([facility]) Body temperature 98.7 [degF] 98.7 [degF] GREENW AY ([facility]) pt unable to obtain full set of vitals, [facility] Body weight 250 [lb_av] 250 [lb_av] MAHNAZ ([facility]) pt unable to obtain full set of vitals, LbaldwinCA PhenX - pain, abdominal - type and intensity protocol 0 0 [facility]Z ([facility]) pt unable to obtain full set of vitals, LbaldwinCA Systolic blood pressure 116 mm[Hg] 116 mm[Hg] G REENWAY ([facility]) Limited vital signs due to telehealth vi sit due to covid 19. KLavereLPN Diastolic blood pressure 69 mm[Hg] 69 mm[Hg] MAHNAZ ([facility]) Limited vital signs due to telehealth vi sit due to covid 19. KLavereLPN PhenX - pain, abdominal - type and intensity protocol 5 5 MA[facility]Z ([facility]) Limited vital signs due to telehealth vi sit due to covid 19. [facility] Body weight 248.8 [lb_av] 248.8 [lb_av] eCW1 ([facility]) Body height 70 [in_i] 70 [in_i] eCW1 ([facility]) Body mass index (BMI) [Ratio] 35.70 kg/m2 35.70 kg/m2 eCW1 ([facility]) Heart rate 59 /min 59 /min eCW1 ([facility]) Respiratory rate 18 /min 18 /min eCW1 ([facility]) Body temperature 99.5 [degF] 99.5 [degF] eCW1 ( [facility]) Systolic blood pressure 125 mm[Hg] 125 mm[Hg] e CW1 ([facility]) Diastolic blood pressure 70 mm[Hg] 70 mm[Hg] eCW1 ([facility]) Heart rate 60 /min 60 /min MAHNAZ ([facility]) Systolic blood pressure 108 mm[Hg] 108 mm[Hg] G REENWAY ([facility]) Heart rate rhythm 1 1 GREENWA Y ([facility]) Body temperature 96.6 [degF] 96.6 [degF] GREENW AY ([facility]) Diastolic blood pressure 62 mm[Hg] 62 mm[Hg] MAHNAZ ([facility]) Body weight 246 [lb_av] 246 [lb_av] MAHNAZ ([facility]) Respiratory rate 20 /min 20 /min [facility]Z ([facility]) Body surface area Derived from formula 2.28 m2 2.28 m2 MA[facility]Z ([facility]) Body height 70 [in_i] 70 [in_i] MAHNAZ ([facility]) Oxygen saturation in Arterial blood by Pulse oximetry 97 % 97 % STANDISH ([facility]) PhenX - pain, abdominal - type and intensity protocol 0 0 MAHNAZ ([facility]) Inhaled oxygen flow rate 0 L/min 0 L/min STANDISH ([facility]) Body mass index (BMI) [Ratio] 35.3 kg/m2 35.3 k g/m2 MA[facility]Z ([facility]) Inhaled oxygen concentration 21 % 21 % MAHNAZ ([facility]) Body height 70 [in_i] 70 [in_i] [facility] ([facility], ) 5'10" Body weight 256.00 [lb_av] 256.00 [lb_av] MEDEN T ([facility]) Body mass index (BMI) [Ratio] 36.7 kg/m2 36.7 k g/m2 [facility] ([facility]) [place] body weight 166 [lb_av] 166 [lb_av] MEDEN T ([facility]) Body weight 116.122 kg 116.122 kg [facility] ([facility]) Body surface area Derived from formula 2.32 m2 2.32 m2 [facility] ([facility]) Body weight 256.00 [lb_av] 256.00 [lb_av] MEDEN T ([facility]) Body mass index (BMI) [Ratio] 36.7 kg/m2 36.7 k g/m2 [facility] ([facility]) [place] body weight 166 [lb_av] 166 [lb_av] MEDEN T ([facility]) Body weight 116.122 kg 116.122 kg [facility] ([facility]) Body surface area Derived from formula 2.32 m2 2.32 m2 [facility] ([facility]) Body height 70 [in_i] 70 [in_i] [facility] ([facility]) 5'10" Diastolic blood pressure 58 mm[Hg] 58 mm[Hg] eCW1 ([facility]) Body weight 248.0 [lb_av] 248.0 [lb_av] eCW1 ([facility]) Body height 70 [in_i] 70 [in_i] eCW1 ([facility]) Body mass index (BMI) [Ratio] 35.58 kg/m2 35.58 kg/m2 eCW1 ([facility]) Heart rate 58 /min 58 /min eCW1 ([facility]) Respiratory rate 18 /min 18 /min eCW1 ([facility]) Body temperature 96.6 [degF] 96.6 [degF] eCW1 ( [facility]) Systolic blood pressure 118 mm[Hg] 118 mm[Hg] e CW1 ([facility]) Body weight 248.2 [lb_av] 248.2 [lb_av] eCW1 ([facility]) Body height 70 [in_i] 70 [in_i] eCW1 ([facility]) Body mass index (BMI) [Ratio] 35.61 kg/m2 35.61 kg/m2 eCW1 ([facility]) Heart rate 55 /min 55 /min eCW1 ([facility]) Respiratory rate 18 /min 18 /min eCW1 ([facility]) Body temperature 95.5 [degF] 95.5 [degF] eCW1 ( [facility]) Systolic blood pressure 138 mm[Hg] 138 mm[Hg] e CW1 ([facility]) Diastolic blood pressure 66 mm[Hg] 66 mm[Hg] eCW1 ([facility]) Systolic blood pressure 124 mm[Hg] 124 mm[Hg] N extGen ([facility]) Diastolic blood pressure 64 mm[Hg] 64 mm[Hg] [facility] ([facility]) Body weight 110.677 kg 110.677 kg [facility] ([facility]) Systolic blood pressure 128 mm[Hg] 128 mm[Hg] N extGen ([facility]) Diastolic blood pressure 82 mm[Hg] 82 mm[Hg] [facility] ([facility]) Heart rate 76 /min 76 /min [facility] ([facility] Body temperature 36.11 Cherrie 36.11 Cherrie [facility] ([facility]) Respiratory rate 17 /min 17 /min [facility] ([facility]) Body weight 248.8 [lb_av] 248.8 [lb_av] eCW1 ([facility]) Heart rate 53 /min 53 /min eCW1 ([facility]) Respiratory rate 18 /min 18 /min eCW1 [facility] Body temperature 97.0 [degF] 97.0 [degF] eCW1 ( [facility]) Systolic blood pressure 117 mm[Hg] 117 mm[Hg] e CW1 ([facility]) Diastolic blood pressure 62 mm[Hg] 62 mm[Hg] eCW1 ([facility]) Body height 70 [in_i] 70 [in_i] eCW1 ([facility]) Body mass index (BMI) [Ratio] 35.70 kg/m2 35.70 kg/m2 eCW1 ([facility]) Body weight 245.8 [lb_av] 245.8 [lb_av] eCW1 ([facility]) Body height 70 [in_i] 70 [in_i] eCW1 ([facility]) Body mass index (BMI) [Ratio] 35.26 kg/m2 35.26 kg/m2 W1 ([facility]) Heart rate 60 /min 60 /min eCW1 ([facility]) Respiratory rate 18 /min 18 /min eCW1 ([facility]) Body temperature 98.6 [degF] 98.6 [degF] eCW1 ( [facility]) Systolic blood pressure 136 mm[Hg] 136 mm[Hg] e CW1 ([facility]) Diastolic blood pressure 64 mm[Hg] 64 mm[Hg] eCW1 ([facility]) Body height 70 [in_i] 70 [in_i] MEDENT ([facility], ) 5'10" Body mass index (BMI) [Ratio] 35.7 kg/m2 35.7 k g/m2 MEDENT ([facility]) Body weight 112.946 kg 112.946 kg [facility] ([facility]) [place] body weight 166 [lb_av] 166 [lb_av] MEDEN T ([facility]) Body surface area Derived from formula 2.29 m2 2.29 m2 [facility] ([facility]) Body weight 249.00 [lb_av] 249.00 [lb_av] MEDEN T ([facility]) [place] body weight 166 [lb_av] 166 [lb_av] MEDEN T ([facility]) Body weight 112.946 kg 112.946 kg [facility] ([facility]) Body surface area Derived from formula 2.29 m2 2.29 m2 [facility] ([facility]) Body height 70 [in_i] 70 [in_i] MEDENT ([facility]) 5'10" Body weight 249.00 [lb_av] 249.00 [lb_av] MEDEN T ([facility]) Body mass index (BMI) [Ratio] 35.7 kg/m2 35.7 k g/m2 MEDENT ([facility]) Systolic blood pressure 142 mm[Hg] 142 mm[Hg] e CW1 ([facility]) Body weight 245.6 [lb_av] 245.6 [lb_av] eCW1 ([facility]) Body height 70 [in_i] 70 [in_i] eCW1 ([facility]) Body mass index (BMI) [Ratio] 35.24 kg/m2 35.24 kg/m2 eCW1 ([facility]) Diastolic blood pressure 66 mm[Hg] 66 mm[Hg] eCW1 ([facility]) Heart rate 50 /min 50 /min eCW1 ([facility]) Respiratory rate 18 /min 18 /min eCW1 ([facility]) Body temperature 98.2 [degF] 98.2 [degF] eCW1 ( [facility]) Systolic blood pressure 134 mm[Hg] 134 mm[Hg] N extGen ([facility]) Diastolic blood pressure 82 mm[Hg] 82 mm[Hg] NextGen ([facility]) Body height 180.34 cm 180.34 cm Next[facility] ([facility]) Body weight 112.491 kg 112.491 kg [facility] ([facility]) Systolic blood pressure 122 mm[Hg] 122 mm[Hg] N extGen ([facility]) Diastolic blood pressure 80 mm[Hg] 80 mm[Hg] NextGen ([facility]) Heart rate 60 /min 60 /min [facility] Body temperature 36.44 Cherrie 36.44 Cherrie NextGen ([facility]) Respiratory rate 16 /min 16 /min NextGen ([facility]) Body mass index (BMI) [Ratio] 34.59 kg/m2 [facility] 34.59 [facility] Body weight 245.0 [lb_av] 245.0 [lb_av] eCW1 ([facility]) Body height 70 [in_i] 70 [in_i] eCW1 ([facility]) Body mass index (BMI) [Ratio] 35.15 kg/m2 35.15 kg/m2 W1 ([facility]) Heart rate 56 /min 56 /min eCW1 ([facility]) Respiratory rate 18 /min 18 /min eCW1 ([facility]) Body temperature 97.5 [degF] 97.5 [degF] eCW1 ( [facility]) Systolic blood pressure 133 mm[Hg] 133 mm[Hg] e CW1 ([facility]) Diastolic blood pressure 74 mm[Hg] 74 mm[Hg] eCW1 ([facility]) Body weight 249 [lb_av] 249 [lb_av] eCW1 [facility]) Body height 70 [in_i] 70 [in_i] eCW1 ([facility]) Body mass index (BMI) [Ratio] 35.72 kg/m2 35.72 kg/m2 eCW1 ([facility]) Heart rate 61 /min 61 /min eCW1 ([facility]) Respiratory rate 18 /min 18 /min eCW1 ([facility]) Body temperature 97.9 [degF] 97.9 [degF] eCW1 ( [facility]) Systolic blood pressure 133 mm[Hg] 133 mm[Hg] e CW1 ([facility]) Diastolic blood pressure 60 mm[Hg] 60 mm[Hg] eCW1 ([facility]) Body height 180.34 cm 180.34 cm Next[facility] ([facility]) Body weight 111.130 kg 111.130 kg [facility] ([facility]) Systolic blood pressure 122 mm[Hg] 122 mm[Hg] N extGen ([facility]) Diastolic blood pressure 68 mm[Hg] 68 mm[Hg] NextGen ([facility]) Body mass index (BMI) [Ratio] 34.17 kg/m2 Overweight 34.17 kg/m2 NextGen ([facility]) Body height 70 [in_i] 70 [in_i] [facility] ([facility], ) 5'10" Body weight 249.00 [lb_av] 249.00 [lb_av] MEDEN T ([facility], ) Body mass index (BMI) [Ratio] 35.7 kg/m2 35.7 k g/m2 [facility] ([facility], ) [place] body weight 166 [lb_av] 166 [lb_av] MEDEN T ([facility], ) Body weight 112.946 kg 112.946 kg [facility] ([facility], ) Body surface area Derived from formula 2.29 m2 2.29 m2 [facility] ([facility], ) Systolic blood pressure 125 mm[Hg] 125 mm[Hg] G REENWAY ([facility]) Diastolic blood pressure 55 mm[Hg] 55 mm[Hg] MAHNAZ ([facility]) Heart rate 59 /min 59 /min MAHNAZ [facility] Body mass index (BMI) [Ratio] 35.29 kg/m2 35.29 kg/m2 eCW1 ([facility]) Body weight 246 [lb_av] 246 [lb_av] eCW1 ([facility]) Body height 70 [in_i] 70 [in_i] eCW1 ([facility]) Systolic blood pressure 122 mm[Hg] 122 mm[Hg] e CW1 ([facility]) Diastolic blood pressure 68 mm[Hg] 68 mm[Hg] eCW1 ([facility]) Body height 70 [in_i] 70 [in_i] MEDENT ([facility], ) 5'10" Body weight 249.00 [lb_av] 249.00 [lb_av] MEDEN T ([facility]) Body mass index (BMI) [Ratio] 35.7 kg/m2 35.7 k g/m2 [facility] ([facility]) [place] body weight 166 [lb_av] 166 [lb_av] MEDEN T ([facility]) Body weight 112.946 kg 112.946 kg [facility] ([facility]) Body surface area Derived from formula 2.29 m2 2.29 m2 [facility] ([facility]) Body height 70 [in_i] 70 [in_i] MEDENT ([facility]) 5'10" Body weight 249.00 [lb_av] 249.00 [lb_av] MEDEN T ([facility]) Body mass index (BMI) [Ratio] 35.7 kg/m2 35.7 k g/m2 [facility] ([facility]) [place] body weight 166 [lb_av] 166 [lb_av] MEDEN T ([facility]) Body weight 112.946 kg 112.946 kg MEDENT ([facility]) Body surface area Derived from formula 2.29 m2 2.29 m2 [facility] ([facility]) Systolic blood pressure 124 mm[Hg] 124 mm[Hg] G REENWAY ([facility]) Diastolic blood pressure 70 mm[Hg] 70 mm[Hg] MAHNAZ ([facility]) Heart rate 56 /min 56 /min MAHNAZ ([facility]) Heart rate rhythm 1 1 GREENWA Y ([facility]) Respiratory rate 20 /min 20 /min MAHNAZ ([facility]) Body temperature 97.2 [degF] 97.2 [degF] GREENW AY ([facility]) Body weight 243 [lb_av] 243 [lb_av] MAHNAZ ([facility]) PhenX - pain, abdominal - type and intensity protocol 5 5 MAHNAZ ([facility]) Oxygen saturation in Arterial blood by Pulse oximetry 97 % 97 % MAHNAZ ([facility]) Inhaled oxygen flow rate 0 L/min 0 L/min MAHNAZ ([facility]) Inhaled oxygen concentration 21 % 21 % MAHNAZ ([facility]) Body height 70 [in_i] 70 [in_i] [facility] ([facility]) 5'10" Body weight 249.00 [lb_av] 249.00 [lb_av] MEDEN T ([facility]) Body mass index (BMI) [Ratio] 35.7 kg/m2 35.7 k g/m2 [facility] ([facility]) [place] body weight 166 [lb_av] 166 [lb_av] MEDEN T ([facility]) Body weight 112.946 kg 112.946 kg [facility] ([facility]) Body surface area Derived from formula 2.29 m2 2.29 m2 [facility] ([facility]) Body weight 249.00 [lb_av] 249.00 [lb_av] MEDEN T ([facility]) Body weight 112.946 kg 112.946 kg [facility] ([facility]) Body height 180.34 cm 180.34 cm NextGen ([facility]) Body weight 134.263 kg 134.263 kg NextGen ([facility]) Systolic blood pressure 130 mm[Hg] 130 mm[Hg] N extGen ([facility]) Diastolic blood pressure 68 mm[Hg] 68 mm[Hg] NextGen ([facility]) Body mass index (BMI) [Ratio] 41.28 kg/m2 Overweight 41.28 kg/m2 NextGen ([facility]) Body height 70 [in_i] 70 [in_i] [facility] ([facility]) 5'10" Body weight 245.00 [lb_av] 245.00 [lb_av] MEDEN T ([facility]) Body mass index (BMI) [Ratio] 35.1 kg/m2 35.1 k g/m2 [facility] ([facility]) [place] body weight 166 [lb_av] 166 [lb_av] MEDEN T ([facility]) Body weight 111.132 kg 111.132 kg [facility] ([facility]) Body surface area Derived from formula 2.28 m2 2.28 m2 [facility] ([facility]) Systolic blood pressure 124 mm[Hg] 124 [facility] Body weight 247.00 [lb_av] 247.00 [lb_av] MEDEN T ([facility]) Diastolic blood pressure 78 mm[Hg] 78 mm[Hg] [facility] ([facility]) Heart rate 78 /min 78 /min [facility] ([facility]) Oxygen saturation in Arterial blood by Pulse oximetry 97 % 97 % [facility] ([facility]) Room Air Body height 70 [in_i] 70 [in_i] [facility] ([facility]) 5'10" Body mass index (BMI) [Ratio] 35.4 kg/m2 35.4 k g/m2 [facility] ([facility]) [place] body weight 166 [lb_av] 166 [[facility]_av] [facility] Body weight 112.039 kg 112.039 kg [facility] ([facility]) Body surface area Derived from formula 2.28 m2 2.28 m2 [facility] ([facility]) Heart rate 56 /min 56 /min eCW1 ([facility]) Body mass index (BMI) [Ratio] 36.01 kg/m2 36.01 kg/m2 eCW1 ([facility]) Body weight 251 [lb_av] 251 [lb_av] eCW1 ([facility]) Body height 70 [in_i] 70 [in_i] eCW1 ([facility]) Respiratory rate 18 /min 18 /min eCW1 ([facility] Systolic blood pressure 115 mm[Hg] 115 mm[Hg] e CW1 ([facility]) Body temperature 97.1 [degF] 97.1 [degF] eCW1 ( [facility]) Diastolic blood pressure 62 mm[Hg] 62 mm[Hg] W1 ([facility]) Systolic blood pressure 122 mm[Hg] 122 mm[Hg] [facility] Diastolic blood pressure 70 mm[Hg] 70 mm[Hg] [facility] Heart rate 61 /min 61 /min [facility] Body temperature 36.33 Cherrie 36.33 Cherrie [facility] Body height 177.8 cm 177.8 cm [facility] Body weight 112.946 kg 112.946 kg [facility] Body mass index (BMI) [Ratio] 35.73 kg/m2 35.73 kg/m2 [facility] Oxygen saturation in Arterial blood by Pulse oximetry 98 % 98 % [facility] Heart rate rhythm 1 1 GREENWA Y ([facility]) Respiratory rate 18 /min 18 /min MAHNAZ ([facility]) Body temperature 96.9 [degF] 96.9 [degF] GREENW AY ([facility]) Body weight 195 [lb_av] 195 [lb_av] MAHNAZ ([facility]) PhenX - pain, abdominal - type and intensity protocol 0 0 MAHNAZ ([facility]) Oxygen saturation in Arterial blood by Pulse oximetry 98 % 98 % MAHNAZ ([facility]) Inhaled oxygen flow rate 0 L/min 0 L/min MAHNAZ ([facility]) Inhaled oxygen concentration 21 % 21 % MAHNAZ ([facility]) Systolic blood pressure 118 mm[Hg] 118 mm[Hg] G REENWAY ([facility]) Diastolic blood pressure 60 mm[Hg] 60 mm[Hg] MAHNAZ ([facility]) Heart rate 65 /min 65 /min MAHNAZ ([facility]) Body mass index (BMI) [Ratio] 34.9 kg/m2 34.9 k g/m2 MEDENT ([facility]) Body weight 243.00 [lb_av] 243.00 [lb_av] MEDEN T ([facility]) [place] body weight 166 [lb_av] 166 [lb_av] MEDEN T ([facility]) Body weight 110.225 kg 110.225 kg [facility] ([facility]) Body height 70 [in_i] 70 [in_i] [facility] ([facility]) 5'10" Systolic blood pressure 139 mm[Hg] 139 mm[facility]Hg] [facility] Diastolic blood pressure 80 mm[Hg] 80 mm[Hg] [facility]) Heart rate 67 /min 67 /min [facility] ([facility]) Respiratory rate 20 /min 20 /min [facility] ( [facility], [facility]) Oxygen saturation in Arterial blood by Pulse oximetry 99 % 99 % [facility] ([facility]) Body temperature 98.6 [degF] 98.6 [degF] [facility] ([facility], [facility]) Body weight 239.00 [lb_av] 239.00 [lb_av] [facility]) Body height 70 [in_i] 70 [in_i] [facility] ([facility]) 5'10" Body mass index (BMI) [Ratio] 34.3 kg/m2 34.3 k g/m2 [facility] ([facility], [facility]) Patient Treatment Plan of Care Planned Activity Planned Date Details Description Data Source (s) Citalopram 10 MG Oral Tablet 04/18/2021 12:00:00 AM EDT MAHNAZ ([facility]) infliximab 100 MG Injection [Remicade] 04/01/2021 12:00:00 AM EDT NextGen ([facility]) Citalopram 10 MG Oral Tablet 03/31/2021 12:00:00 AM EDT MAHNAZ ([facility]) infliximab 100 MG Injection [Remicade] 12/05/2020 12:00:00 AM EDT NextGen ([facility]) infliximab 100 MG Injection [Remicade] 12/05/2020 12:00:00 AM EDT NextGen ([facility]) gabapentin 300 MG Oral Capsule 11/19/2020 12:00:00 AM EDT NextGen ([facility]) ciclopirox 80 MG/ML Topical Solution 10/28/2020 12:00:00 AM EST eCW1 ([facility]) tizanidine 2 MG Oral Tablet 09/10/2020 12:00:00 AM EST NextGen ([facility]) tizanidine 2 MG Oral Tablet 05/16/2020 12:00:00 AM EDT NextGen ([facility]) POLYETHYLENE GLYCOL 3350 142 MG/ML Oral Solution 09/18/2019 12:00:0 0 AM EST MAHNAZ ([facility]) infliximab 100 MG Injection [Remicade] 09/03/2017 12:00:00 AM EST NextGen ([facility]) gabapentin 300 mg capsule Ne xtGen ([facility]) Metformin hydrochloride 500 MG Oral Tablet NextGen ([facility]) Ondansetron 8 MG Oral Tablet NextGen ([facility])
[2021-08-16 12:40] LABS: BASO # 0.1 10^3/uL (0.0-0.2); BASO % 0.6 % (0.0-1.0); EOS # 0.5 10^3/uL (0.0-0.5); EOS % 5.2 % (0.0-3.0); HEMATOCRIT 49.9 % (42.0-52.0); HEMOGLOBIN 16.4 g/dl (13.5-17.5); LYMPH # 1.9 10^3/uL (1.5-5.0); LYMPH % 21.7 % (24.0-44.0); MEAN CORPUSCULAR HEMOGLOBIN 29.6 pg (27.0-33.0); MEAN CORPUSCULAR HGB CONC 32.9 g/dl (32.0-36.5); MEAN CORPUSCULAR VOLUME 90.1 fl (80.0-96.0); MONO # 0.8 10^3/uL (0.0-0.8); MONO % 9.1 % (2.0-8.0); NEUTROPHILS # 5.7 10^3/uL (1.5-8.5); NEUTROPHILS % 63.2 % (36.0-66.0); PLATELET COUNT, AUTOMATED 247 10^3/uL (150-450); RED BLOOD COUNT 5.54 10^6/uL (4.30-6.10); WHITE BLOOD COUNT 8.9 10^3/uL (4.0-10.0)
[2021-08-16 13:08] LABS: ALBUMIN 4.1 GM/DL (3.2-5.2); BILIRUBIN,DIRECT 0.1 MG/DL (0.0-0.2); BILIRUBIN,TOTAL 0.4 MG/DL (0.2-1.0); CALCIUM LEVEL 9.5 MG/DL (8.8-10.2); CREATININE FOR GFR 1.48 MG/DL (0.70-1.30); GLOMERULAR FILTRATION RATE 49.6 (>42); POTASSIUM SERUM 4.5 MEQ/L (3.5-5.1); TOTAL PROTEIN 8.2 GM/DL (6.4-8.2)
[2021-08-16] MEDS ORDERED: ISOVUE-370 76% 100ML VIAL As Ordered ONE (13:11)
--- OUTSIDE RECORDS SUMMARY | 2021-08-16 13:58 | CCD ---
Author Author [facility] Organization [facility] Address Unknown Phone Unavailable Care Team Providers Care Radiology Practitioner Assistant Name Role Phone BOSSI, A ROSA PA [...] J Alejandro DO Unavailable Unavailable Carguello J Alejnadro DO Unavailable Unavailable Carguello J Alejandro DO [...] Carguello J Alejandro DO Unavailable Unavailable CarguelloCrystal Alejanrdo DO Unavailable Unavailable Carguello J Alejandro [...] Unavailable Unavailable LESLIE Mcknight, Magy Unavailable Wall VALIDATION ANALYST, A Dimitri Unavailable [phone] Wall VALIDATION ANALYST, A Dimitri Unavailable [phone] Wall VALIDATION ANALYST, A Dimitri Unavailable [phone] Wall VALIDATION ANALYST, A Dimitri Unavailable [phone] Wall VALIDATION ANALYST, A Dimitri Unavailable [phone] Wall VALIDATION ANALYST, A Dimitri Unavailable [phone] KEZIA PRINCE MD Unavailable Unavailable KEZIA PRINCE [...] Unavailable Unavailable Aicha Hadley MD Unavailable Unavailable [facility][id number], [id number] Unavailable Jyoti vailable Denise, M Maria C PROTEIN SCIENTIST Unavailable Unavailable Denise, M Maria C PROTEIN SCIENTIST Unavailable Unavailable Denise, M Maria C PROTEIN SCIENTIST Unavailable Unavailable Denise, M Maria C PROTEIN SCIENTIST Unavailable Unavailable Denise, M Maria C PROTEIN SCIENTIST Unavailable Unavailable Denise, M Maria C PROTEIN SCIENTIST Unavailable Unavailable Denise, M Maria C PROTEIN SCIENTIST Unavailable Unavailable Denise, M Maria C PROTEIN SCIENTIST Unavailable Unavailable Denise, M Maria C PROTEIN SCIENTIST Unavailable Unavailable Denise, M Maria C PROTEIN SCIENTIST Unavailable Unavailable Denise, M Maria C PROTEIN SCIENTIST Unavailable Unavailable Denise, M Maria C PROTEIN SCIENTIST Unavailable Unavailable Denise, M Maria C PROTEIN SCIENTIST Unavailable Unavailable Denise, M Maria C PROTEIN SCIENTIST Unavailable Unavailable Denise, M Maria C PROTEIN SCIENTIST Unavailable Unavailable Denise, M Maria C PROTEIN SCIENTIST Unavailable Unavailable MtaKevin pineda MD Unavailable Unavailable [...] Unavailable Unavailable MtanoKevin collins MD Unavailable Unavailable MtanosKeivn MD Unavailable Unavailable MtanoKevin collins MD Unavailable [...] Unavailable Unavailable MtanoKevin collins MD Unavailable Unavailable [place], Pema PROTEIN SCIENTIST Unavailable Unavailable [place], Pema PROTEIN SCIENTIST Unavailable Unavailable Kelsea, Pema PROTEIN SCIENTIST Unavailable Unavailable Kelsea, Pema PROTEIN SCIENTIST Unavailable Unavailable Kelsea, Pema PROTEIN SCIENTIST Unavailable Unavailable Kelsea, Pema PROTEIN SCIENTIST Unavailable Unavailable Kelsea, Pema PROTEIN SCIENTIST Unavailable Unavailable [place], Pema PROTEIN SCIENTIST Unavailable Unavailable [place], Pema PROTEIN SCIENTIST Unavailable Unavailable [place], Pema PROTEIN SCIENTIST Unavailable Unavailable Kelsea, Pema PROTEIN SCIENTIST Unavailable Unavailable [place], Pema PROTEIN SCIENTIST Unavailable Unavailable Kelsea, Pema PROTEIN SCIENTIST Unavailable Unavailable [place], Pema PROTEIN SCIENTIST Unavailable Unavailable Kelsea, Pema PROTEIN SCIENTIST Unavailable Unavailable [place], Pema PROTEIN SCIENTIST Unavailable Unavailable Kelsea, Pema PROTEIN SCIENTIST Unavailable Unavailable [place], Pema PROTEIN SCIENTIST Unavailable Unavailable [place], Pema PROTEIN SCIENTIST Unavailable Unavailable GabaKrl davis MD, FACC Unavailable Unavailable GabKarl davis [...] FACC Unavailable Unavailable Gabris, Karl Mart MD, [facility] Unavailable Unavailable Gabris, Karl Mart MD, [facility] Unavailable Unavailable Gabris, Karl Mart MD, [facility] Unavailable Unavailable Gabris, Karl Mart MD, [facility] Unavailable Unavailable Gabris, Karl Mart MD, [facility] Unavailable Unavailable Gabris, Karl Mart MD, [facility] Unavailable Unavailable Gabris, Karl Mart MD, [facility] Unavailable Unavailable Gabris, Karl Mart MD, [facility] Unavailable Unavailable Gabris, Karl Mart MD, [facility] Unavailable Unavailable Gabris, Karl Mart MD, [facility] Unavailable Unavailable Gabris, Karl Mart MD, [facility] Unavailable Unavailable Gabris, Karl Mart MD, [facility] Unavailable Unavailable Gabris, Karl Mart MD, [facility] Unavailable Unavailable Gabris, Karl Mart MD, [facility] Unavailable Unavailable Gabris, Karl Mart MD, [facility] Unavailable Unavailable Gabris, Karl Mart MD, [facility] Unavailable Unavailable Gabris, Karl Mart MD, [facility] Unavailable Unavailable Gabris, Karl Mart MD, [facility] Unavailable Unavailable Gabris, Karl Mart MD, [facility] Unavailable Unavailable Gabris, Karl Mrat MD, [facility] Unavailable Unavailable Gabris, Karl Mart MD, [facility] Unavailable Unavailable Gabris, Karl Mart MD, [facility] Unavailable Unavailable Gabris, Karl Mart MD, [facility] Unavailable Unavailable Gabris, Karl Mart MD, [facility] Unavailable Unavailable Gabris, Karl Mart MD, [facility] Unavailable Unavailable Gabris, Karl Mart MD, [facility] Unavailable Unavailable Gabris, Karl Mart MD, [facility] Unavailable Unavailable Gabris, Karl Mart MD, [facility] Unavailable Unavailable Gabris, Karl Mart MD, [facility] Unavailable Unavailable Gabris, Karl Mart MD, [facility] Unavailable Unavailable Gabris, Karl Mart MD, [facility] Unavailable Unavailable Gabris, Karl Mart MD, [facility] Unavailable Unavailable Gabris, Karl Mart MD, [facility] Unavailable Unavailable Gabris, Karl Mart MD, [facility] Unavailable Unavailable Gabris, Karl Mart MD, [facility] Unavailable Unavailable Gabris, Karl Mart MD, [facility] Unavailable Unavailable Gabris, Karl Mart MD, [facility] Unavailable Unavailable Gabris, Karl Mart MD, [facility] Unavailable Unavailable Gabris, Karl Mart MD, [facility] Unavailable Unavailable Gabris, Karl Mart MD, [facility] Unavailable Unavailable Gabris, Karl Mart MD, [facility] Unavailable Unavailable Gabris, Karl Mart MD, [facility] Unavailable Unavailable Gabris, Karl Mart MD, [facility] Unavailable Unavailable Gabris, Karl Mart MD, [facility] Unavailable Unavailable Gabris, Karl Mart MD, [facility] Unavailable Unavailable Gabris, Karl Mart MD, [...] A Alisabeth PA Unavailable Unavailable Kravec, Blaze VALIDATION ANALYST Unavailable Unavailable Kravec, Blaze VALIDATION ANALYST Unavailable Unavailable Kravec, Blaze VALIDATION ANALYST Unavailable Unavailable Kravec, Blaze VALIDATION ANALYST Unavailable Unavailable Kravec, Blaze VALIDATION ANALYST Unavailable Unavailable Kravec, Blaze VALIDATION ANALYST Unavailable Unavailable Kravec, Blaze VALIDATION ANALYST Unavailable Unavailable Kravec, Blaze VALIDATION ANALYST Unavailable Unavailable Kravec, Blaze VALIDATION ANALYST Unavailable Unavailable Kravec, Blaze VALIDATION ANALYST Unavailable Unavailable Kravec, Blaze VALIDATION ANALYST Unavailable Unavailable Kravec, Blaze VALIDATION ANALYST Unavailable Unavailable Kravec, Blaze VALIDATION ANALYST Unavailable Unavailable Kevin Carpenter MD Unavailable Unavailable [...] CarpenterKevin MD Unavailable Unavailable Shaben, E Aicha VALIDATION ANALYST Unavailable Unavailable Shaben, E Aicha VALIDATION ANALYST Unavailable Unavailable Shaben, E Aicha VALIDATION ANALYST Unavailable Unavailable Shaben, E Aicha VALIDATION ANALYST Unavailable Unavailable Shaben, E Aicha VALIDATION ANALYST Unavailable Unavailable Shaben, E Aicha VALIDATION ANALYST Unavailable Unavailable Shaben, E Aicha VALIDATION ANALYST Unavailable Unavailable Shaben, E Aicha VALIDATION ANALYST Unavailable Unavailable Shaben, E Aicha VALIDATION ANALYST Unavailable Unavailable Shaben, E Aicha VALIDATION ANALYST Unavailable Unavailable Shaben, E Aicha VALIDATION ANALYST Unavailable Unavailable Shaben, E Aicha VALIDATION ANALYST Unavailable Unavailable Shaben, E Aicha VALIDATION ANALYST Unavailable Unavailable Shaben, E Aicha VALIDATION ANALYST Unavailable Unavailable Shaben, E Aicha VALIDATION ANALYST Unavailable Unavailable Shaben, E Aicha VALIDATION ANALYST Unavailable Unavailable Shaben, E Aicha VALIDATION ANALYST Unavailable Unavailable Shaben, E Aicha VALIDATION ANALYST Unavailable Unavailable Shaben, E Aicha VALIDATION ANALYST Unavailable Unavailable Shaben, E Aicha VALIDATION ANALYST Unavailable Unavailable Shaben, E Aicha VALIDATION ANALYST Unavailable Unavailable Shaben, E Aicha VALIDATION ANALYST Unavailable Unavailable Shaben, E Aicha VALIDATION ANALYST Unavailable Unavailable Shaben, E Aicha VALIDATION ANALYST Unavailable Unavailable Shaben, E Aicha VALIDATION ANALYST Unavailable Unavailable Shaben, E Aicha VALIDATION ANALYST Unavailable Unavailable Shaben, E Aicha VALIDATION ANALYST Unavailable Unavailable Shaben, E Aicha VALIDATION ANALYST Unavailable Unavailable Shaben, E Aicha VALIDATION ANALYST Unavailable Unavailable Shaben, E Aicha VALIDATION ANALYST Unavailable Unavailable Shaben, E Aicha VALIDATION ANALYST Unavailable Unavailable Re-disclosure Warning The records that [...] is protected by Article 27-F of the [facility] Public Health law. If you continue you may have access to information: Regarding HIV / AIDS; Provided by facilities licensed or operated by the [facility] Office of Mental Health; or Provided by the [facility] Office for People With Developmental Disabilities. If such information is present, then the following [facility] mandated warning applies: This information has been [...] further disc losure. Advance Directives Directive Description Production Specialist Promotions Firm Accounts Manager Status Observation Descr iption Data Source(s) COVID Screening Performed completed COVI D Screening Performed [facility] packet given Pt Bill of Rights, Priv Prac, Ad Dir completed packet given Pt Bill of Rights, Priv Prac, Ad Dir [facility] Note: Pt declined AD packet Allergies and Adverse Reactions Type Description Substance Reaction Status Data Source(s ) Propensity to adverse reactions ATORVASTATIN CALCIUM Atorvastatin C alcium Active [facility] Family History Family Member Name Family Member Gender Family Member Status Date o f Status Description Data Source(s) Unknown Unknown Problem [facility] ([facility]) Unknown Male Problem MEDENT ([facility] () Unknown Female Problem MEDENT ([facility]) Unknown Female Problem MEDENT ([facility]) Unknown Male Problem MEDENT ([facility]) Encounters Encounter Providers Location Date Indications Data Source(s ) Attender: KEZIA PRINCE [facility] 08/06/2021 09:20:00 AM EST - 08/06/2021 09:20:00 AM EST Ankylosing spondyl[facility] of multiple sites in [facility]) Ankylosing spondylitis of multiple sites in spine Attender: Natalie GANDARA [facility] 08/04/2021 11:00:00 AM EST - 08/04/2021 11:00:00 AM EST 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 (current) drug therapyAnkylosing spondylitis of multiple sites in spine [facility] ([facility]) 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 (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) 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 Ankylosing spondylitis of multiple sites in spine Outpatient Attender: Raji Fields/Loris/Дмитрий/Rein dl 07/21/2021 10:00:00 AM EST [facility] ([facility]) Attender: Kevin Milian [facility] 07/02/2021 09:40:00 AM EDT - 07/02/2021 09:40:00 AM EDT Ankylosing spondylitis of multiple sites in spine [facility] ([facility]) Ankylosing spondylitis of multiple sites in spine Outpatient [address] [place] [address], [facility] [address] 06/25/2021 12:00:00 AM EDT eCW1 ([facility]) Attender: Aicha Hadley [facility] 06/02/2021 09:40:00 AM EDT - 06/02/2021 09:40:00 AM EDT Ankylosing spondylitis of multiple sites in spine [facility] ([facility]) Ankylosing spondylitis of multiple sites in spine Outpatient Attender: Raji Fields/Loris/Дмитрий/Rein dl 05/20/2021 11:00:00 AM EDT [facility] ([facility]) <td ID="encounterTypeDescriptionID0">Tel ephonic Encounter</td><td>Blake Alaniz PROTEIN SCIENTIST</td><td>[facility]</td><td>05/15/2021</td><td>11:20AM</td><td>12:18PM</td><td><content ID="encounterDiagnosisID0-0">Diabetes Mellitus Type 2</content>, <content ID="encounterDiagnosisID0-1">Depression</content>, <content ID="encounterDiagnosisID0-2">Nontoxic Solitary Thyroid Nodule</content></td>Outpatient Attender: Blake Alaniz [facility] 05/15/2021 11:20:00 AM EDT - 05/15/2021 12:18:44 PM EDT Nontoxic Solitary Thyroid NoduleDepressionDiabetes Mellitus Type 2 [facility] ([facility]) Nontoxic Solitary Thyroid Nodule Depression Diabetes Mellitus Type 2 Attender: KEZIA PRINCE MD [facility] 05/02/2021 11:00:00 AM EDT - 05/02/2021 11:00:00 AM EDT Ankylosing spondylitis of multiple sites in spine [facility] ([facility]) Ankylosing spondylitis of multiple sites in spine Outpatient<td ID="encounterTypeDescripti onID0">Telephonic Encounter</td><td>Pema Enamorado NP</td><td>[facility]</td><td>04/17/2021</td><td>8:18AM</td><td>9:00AM</td><td><content ID="encounterDiagnosisID0-0">Nontoxic Solitary Thyroid Nodule</content>, <content ID="encounterDiagnosisID0-1">Diabetes Mellitus Type 2</content>, <content ID="encounterDiagnosisID0-2">Renal Insufficiency Chronic</content></td> Attender: Pema Enamorado NP [facility] 04/17/2021 08:18:00 AM EDT - 04/17/2021 09:00:25 AM EDT Nontoxic Solitary Thyroid NoduleRenal In sufficiency ChronicDiabetes Mellitus Type 2 [facility] ([facility] Nontoxic Solitary Thyroid Nodule Renal Insufficiency Chronic Diabetes Mellitus Type 2 <td ID="encounterTypeDescriptionID0">Emi rt Update</td><td>Magy Mcknight RN</td><td></td><td>04/10/2021</td><td>2:09PM</td><td>11:59PM</td><td></td>Unkno Attender: Magy Mcknight RN 04/10/2021 02 :09:00 PM EDT - 04/10/2021 11:59:00 PM EDT [facility] ([facility]) <td ID="encounterTypeDescriptionID0">Emi rt Update</td><td>Magy Mcknight RN</td><td></td><td>04/03/2021</td><td>3:27PM</td><td>11:59PM</td><td></td>Unkno Attender: Magy Mcknight RN 04/03/2021 03 :27:00 PM EDT - 04/03/2021 11:59:00 PM EDT [facility] ([facility]) Attender: KEZIA PRINCE MD [facility] 04/03/2021 12:40:00 PM EDT - 04/03/2021 12:40:00 PM EDT Ankylosing spondylitis of multiple sites in spine [facility] ([facility]) Ankylosing spondylitis of multiple sites in spine Outpatient [address] [facility] [address] 04/02/2021 12:00:00 AM EDT eC1 ([facility]ly [facility]) Attender: Maria C Walker NP [facility] 04/01/2021 03:00:00 PM EDT - 04/01/2021 03:00:00 PM EDT 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 (current) drug therapyLow back painMalignant neoplasm of tongue, unspecifiedAnkylosing spondylitis of multiple sites in spine [facility] ([facility]) Other retirement (current) drug therapy Low back pain Malignant neoplasm of tongue, unspecifie d Ankylosing spondylitis of multiple sites in spine Unknown<td ID="encounterTypeDescriptionI D0">Chronic Disease Follow- up</td><td>Pema Enamorado NP</td><td>[facility]</td><td>03/31/2021</td><td>10:42AM</td><td>11:59AM</td><td><content ID="encounterDiagnosisID0-0">Depression</content>, <content ID="encounterDiagnosisID0-1">Diabetes Mellitus Type 2</content>, <content ID="encounterDiagnosisID0-2">Essential Hypertension</content>, <content ID="encounterDiagnosisID0-3">Gerd</content>, <content ID="encounterDiagnosisID0- 4">Lung Neoplasm Uncertain Behavior</content>, <content ID="encounterDiagnosisID0-5">Nonorganic Sleep Apnea</content>, <content ID="encounterDiagnosisID0-6">Tongue Neoplasm Malignant Carcinoma Squamous Cell</content>, <content ID="encounterDiagnosisID0-7">Ankylosing Spondylitis</content>, <content ID="encounterDiagnosisID0-8">Nontoxic Solitary Thyroid Nodule</content></td> Attender: Pema Enamorado NP [facility] 03/31/2021 10:42:00 AM EDT - 03/31/2021 11:59:34 AM EDT Tongue Neoplasm Malignant Carcinoma Squamous CellTongue Neoplasm Malignant Carcinoma Squamous CellLung Neoplasm Uncertain BehaviorLung Neoplasm Uncertain BehaviorAnkylosing SpondylitisAnkylosing SpondylitisGerdGerdNontoxic Solitary Thyroid NoduleNontoxic Solitary Thyroid NoduleNonorganic Sleep ApneaNonorganic Sleep ApneaEssential HypertensionDepressionEssential HypertensionDepressionDiabetes Mellitus Type 2Diabetes Mellitus Type 2 [facility] ([facility]) Tongue Neoplasm Malignant Carcinoma Squa mous Cell Tongue Neoplasm Malignant Carcinoma Squa mous Cell Lung Neoplasm Uncertain Behavior Lung Neoplasm Uncertain Behavior Ankylosing Spondylitis Ankylosing Spondylitis Gerd Gerd 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 Essential Hypertension Depression Essential Hypertension Depression Diabetes Mellitus Type 2 Diabetes Mellitus Type 2 Outpatient Attender: Raji Fields/Loris/Дмитрий/Rein dl 03/19/2021 10:00:00 AM EDT [facility] ([facility]) (PN RF) Pain Radiofrequency [address] [place] [address] 03/18/2021 12:00:00 AM EDT eCW1 (Counts include 234 beds at the [facility]) Attender: Kevin Milian MD [facility] 03/06/2021 11:40:00 AM EDT - 03/06/2021 11:40:00 AM EDT Ankylosing spondylitis of multiple sites in spine [facility] ([facility]) Ankylosing spondylitis of multiple sites in spine Outpatient [address] [facility] [address] 02/06/2021 12:00:00 AM EDT eCW1 ([facility]) Attender: KEZIA PRINCE [facility] 02/05/2021 10:20:00 AM EDT - 02/05/2021 10:20:00 AM EDT Ankylosing spondylitis of multiple sites in spine [facility] ([facility]) Ankylosing spondylitis of multiple sites in spine (PN Proc 45) Pain Procedure 45 [address] [place] [address] 01/30/2021 12:00:00 AM EDT eCW1 (Counts include 234 beds at the [facility]) Unknown [address] [facility] [address] 01/29/2021 12:00:00 AM EDT eCW1 ([facility]) Outpatient [address] [facility] [address] 01/23/2021 12:00:00 AM EDT eCW1 ([facility]) Outpatient Attender: Raji Fields/Loris/Дмитрий/Rein dl 01/14/2021 10:15:00 AM EDT [facility] ([facility]) (PN RF) Pain Radiofrequency [address] [place] [address] 01/09/2021 12:00:00 AM EDT eCW1 (Counts include 234 beds at the [facility]) Unknown [address] [facility] [address] 01/07/2021 12:00:00 AM EDT eCW1 ([facility]) Attender: Kevin Milian [facility] 01/03/2021 09:00:00 AM EDT - 01/03/2021 09:00:00 AM EDT Ankylosing spondylitis of multiple sites in [facility]) Ankylosing spondylitis of multiple sites in spine Attender: ROSA GANDARA [facility] 01/01/2021 11:18:00 AM EDT - 01/01/2021 11:18:00 AM EDT [facility] ([facility]) (PN Proc 45) Pain Procedure 45 [address] [place] [address] 12/09/2020 12:00:00 AM EDT eCW1 (Counts include 234 beds at the [facility]) Attender: Aicha Hadley MD [facility] 12/05/2020 09:00:00 AM EDT - 12/05/2020 09:00:00 AM EDT Ankylosing spondylitis of multiple sites in [facility] ([facility]) Ankylosing spondylitis of multiple sites in spine Unknown [address] [facility] [address] 12/05/2020 12:00:00 AM EDT eCW1 ([facility]) Attender: KEZIA PRINCE [facility] 12/03/2020 11:30:00 AM EDT - 12/03/2020 11:30:00 AM EDT [facility] ( [facility]) Outpatient [address] [facility] [address] 11/26/2020 12:00:00 AM EDT eCW1 ([facility]) Attender: KEZIA PRINCE [facility] 11/20/2020 03:09:00 PM EDT - 11/20/2020 03:09:00 PM EDT [facility] ( [facility]) OutpatientOFFICE/OUTPATIENT VISIT, EST Attender: ROSA GANDARA [facility] 11/19/2020 09:00:00 AM EDT - 11/19/2020 09:00:00 AM ED T Cancer of tongueAnkylosing spondylitis of multiple sites in spine [facility] ([facility]) Cancer of tongue Ankylosing spondylitis of multiple sites in spine Office Visit Attender: Raji Fields/Karen/Дмитрий/Rein dl 11/14/2020 09:30:00 AM EST [facility] ([facility]) Office Visit, Est Pt., Level 4 PC [address] [place] [address] 10/28/2020 12:00:00 AM EST eCW1 ([facility]) Office Visit Attender: Raji Fields/Loris/Дмитрий/Rein dl 10/17/2020 09:45:00 AM EST [facility] ([facility]) Office Visit Attender: ADALI Fields/Karen/Дмитрий/Kimberlyd dayan 10/02/2020 10:00:00 AM EST [facility] ([facility]) <td ID="encounterTypeDescriptionID1">Emi rt Prep</td><td>Alejandro Del Rio DO</td><td></td><td>10/29/2020</td><td>09/24/2020 6:52PM</td><td>09/24/2020 11:59PM</td><td></td>Unknown Attender: Alejandro Del Rio DO 09/24/2020 06:52:00 PM EST - 09/24/2020 11:59:00 PM EST [facility] ([facility]) Unknown<td ID="encounterTypeDescriptionI D2">Correspondence</td><td>Alejandro Del Rio DO</td><td></td><td>10/28/2020</td><td>09/24/2020 11:05AM</td><td>09/24/2020 11:59PM</td><td></td> Attender: Alejandro Del Rio DO 09/24/2020 11:05:00 AM EST - 09/24/2020 11:59:00 PM EST [facility] ([facility]) <td ID="encounterTypeDescriptionID3">Pre Op</td><td>Ibis Bruce PROTEIN SCIENTIST</td><td>[facility]</td><td>09/24/2020</td><td>10:27AM</td><td>11:07AM</td><td><content ID="encounterDiagnosisID3-0">Tongue Neoplasm Malignant</content>, <content ID="encounterDiagnosisID3-1">Diabetes Mellitus Type 2</content>, <content ID="encounterDiagnosisID3-2">Essential Hypertension</content>, <content ID="encounterDiagnosisID3-3">Hyperlipidemia</content>, <content ID="encounterDiagnosisID3-4">Nonorganic Sleep Apnea</content>, <content ID="encounterDiagnosisID3-5">Renal Insufficiency Chronic</content></td>[facility]: [facility] 10:27:00 AM EST - 09/24/2020 11:07:03 AM EST Tongue Neoplasm MalignantRenal Insufficiency ChronicNonorganic Sleep ApneaHyperlipidemiaEssential HypertensionDiabetes Mellitus Type 2 [facility] ([facility]) Tongue Neoplasm Malignant Renal Insufficiency Chronic Nonorganic Sleep Apnea Hyperlipidemia Essential Hypertension Diabetes Mellitus Type 2 <td ID="encounterTypeDescriptionID0">Tel ephonic Encounter</td><td>Alejandro Del Rio DO</td><td>[facility]</td><td>11/11/2020</td><td>09/24/2020 9:00AM</td><td>09/24/2020 11:59PM</td><td><content ID="encounterDiagnosisID0- 0">Diabetes Mellitus Type 2</content>, <content ID="encounterDiagnosisID0- 1">Nonorganic Sleep Apnea</content>, <content ID="encounterDiagnosisID0-2"> Essential Hypertension</content>, <content ID="encounterDiagnosisID0-3">Tongue Neoplasm Malignant</content>, <content ID="encounterDiagnosisID0-4">Hyperlipidemia</content>, <content ID="encounterDiagnosisID0-5">Renal Insufficiency Chronic</content></td>Outpatient Attender: Alejandro Del Rio DO [facility] 09/24/2020 09:00:00 AM EST - 09/24/2020 11:59:00 PM EST Tongue Neoplasm MalignantRenal Insufficiency ChronicNonorganic Sleep ApneaHyperlipidemiaEssential HypertensionDiabetes Mellitus Type 2 [place] ([facility]) Tongue Neoplasm Malignant Renal Insufficiency Chronic Nonorganic Sleep Apnea Hyperlipidemia Essential Hypertension Diabetes Mellitus Type 2 Outpatient Attender: ADALI Fields/Loris/Дмитрий/Reind l 09/20/2020 09:30:00 AM EST [facility] ([facility]) Outpatient Attender: Raji Fields/Loris/Дмитрий/Rein dl 09/17/2020 07:30:00 AM EST [facility] ([facility]) Unknown [address] [facility] [address] 09/13/2020 12:00:00 AM EST eCW1 ([facility]) Attender: [id number] NEXTGEN_ [id number]: Dimitri Bennett [facility] 09/10/2020 01:08:00 PM EST - 09/10/2020 01:08:00 PM ES T NextGen ([facility]) Outpatient Attender: ADALI Fields/Karen/Дмитрий/Reind l 09/04/2020 12:00:00 PM EST MED[facility] ([facility]) OFFICE/OUTPATIENT VISIT, ESTOutpatient Attender: [id number] NEXTGEN_[id number]: Dimitri CALVIN [facility] 09/03/2020 11:00:00 AM EST - 09/03/2020 11:00:00 AM EST Low back painOther retirement (current) drug therapyAnkylosing spondylitis of multiple sites in spine NextGen ([facility]) Low back pain Other retirement (current) drug therapy Ankylosing spondylitis of multiple sites in spine Outpatient Attender: ADALI FIELDS MD 08/27/2020 11:46:00 AM EST [facility] Lab Office Visit Attender: Raji Fields/Karen/Дмитрий/Rein dl 08/22/2020 08:30:00 AM EST [facility] ([facility]) Attender: Kusum Curiel PA-C [facility] 08/21/2020 09:15:00 AM EST - 08/21/2020 09:15:00 AM EST NextGen ( [facility]) Outpatient Attender: Audie Fields/Karen/Дмитрий/R eindl 08/20/2020 08:45:00 AM EST MEDENT ([facility]) Outpatient [address] [place] [phone] 08/14/2020 12:00:00 AM EST eCW1 ([facility]) Outpatient Attender: Barron Thomas MD, FACCReferre r: Alejandro Del Rio DO [id number].[email or web address] 08/07/2020 12:00:00 AM EST - 08/07/2020 02:35:28 PM EST [facility] <td ID="encounterTypeDescriptionID4">Lab Order</td><td>Alejandro Del Rio DO</td><td></td><td>09/03/2020</td><td>08/05/2020 3:23PM</td><td>08/05/2020 11:59PM</td><td></td>Obstetrics Attender: Alejandro Del Rio DO 08/05/2020 03:23:00 PM EST - 08/05/2020 11:59:00 PM EST [facility] ([facility]) <td ID="encounterTypeDescriptionID5">Emi rt Update</td><td>Magy Mcknight RN</td><td></td><td>08/05/2020</td><td>2:47PM</td><td>11:59PM</td><td></td>Unkno Attender: Magy Mcknight RN 08/05/2020 02 :47:00 PM EST - 08/05/2020 11:59:00 PM EST [place] ([facility]) Outpatient<td ID="encounterTypeDescripti onID6">Pre Op</td><td>Alejandro Del Rio </td><td>[facility]</td><td>08/05/2020</td><td>9:01AM</td><td>10:06AM</td><td><content ID="encounterDiagnosisID6-0">Diabetes Mellitus Type 2</content>, <content ID="encounterDiagnosisID6-1">Essential Hypertension</content>, <content ID="encounterDiagnosisID6-2">Gerd</content>, <content ID="encounterDiagnosisID6- 3">Hyperlipidemia</content>, <content ID="encounterDiagnosisID6-4">Oral Leukoplakia</content>, <content ID="encounterDiagnosisID6-5">Nonorganic Sleep Apnea</content>, <content ID="encounterDiagnosisID6-6">Abnormal Electrocardiogram</content></td> Attender: Alejandro Del Rio DO [facility] 08/05/2020 09:01:00 AM EST - 08/05/2020 10:06:29 AM EST Abnormal ElectrocardiogramOral LeukoplakiaAbnormal ElectrocardiogramOral LeukoplakiaGerdGerdNonorganic Sleep ApneaNonorganic Sleep ApneaHyperlipidemiaEssential HypertensionHyperlipidemiaEssential Hyp ertensionDiabetes Mellitus Type 2Diabetes Mellitus Type 2 [place] ([facility]) Abnormal Electrocardiogram Oral Leukoplakia Abnormal Electrocardiogram Oral Leukoplakia Gerd Gerd Nonorganic Sleep Apnea Nonorganic Sleep Apnea Hyperlipidemia Essential Hypertension Hyperlipidemia Essential Hypertension Diabetes Mellitus Type 2 Diabetes Mellitus Type 2 Attender: KEZIA PRINCE MD [facility] 07/23/2020 11:20:00 AM EST - 07/23/2020 11:20:00 AM EST Ankylosing spondylitis of multiple sites in spine NextGen ([facility]) Ankylosing spondylitis of multiple sites in spine Outpatient Attender: ADALI Fields/Karen/Дмитрий/Denis hanley 07/17/2020 09:15:00 AM EST [facility] ([facility]) Outpatient Attender: MARGO meade 07/16/2020 08:00:00 AM EST [facility] ([facility]) Attender: Aicha Hadley MD [facility] 06/24/2020 10:40:00 AM EDT - 06/24/2020 10:40:00 [...] Complete: YESThis Data wa s Submitted to [facility] Via enGene. Covid 19 Pfizer Vaccine 10/27/2020 12:00:00 AM EST completed Covid 19 Pfizer Vaccine NextGen ([facility]) Source: Other Provider COVID-19 VACCINE Pfizer 10/27/2020 12:00:00 AM EST completed NYSIIS Vaccine Series Complete: YESThis Data wa s Submitted to [facility] Via [facility]. Covid 19 Pfizer Vaccine 10/06/2020 12:00:00 AM EST completed Covid 19 Pfizer Vaccine NextGen ([facility]) Source: Other Provider COVID-19 VACCINE Pfizer 10/06/2020 12:00:00 AM EST completed NYSIIS Vaccine Series Complete: NOThis Data was Submitted to [facility] Via [facility]. IIV3. This is one of two codes replacing CVX 15, which is being retired. 07/24/2020 12:00:00 AM EST completed Historical Influenza Vaccine Next Gen ([facility]) Note: APPROX ; Source: Other Provider IIV3. This is one of two codes replacing CVX 15, which is being retired. 06/24/2020 02:47:00 PM EDT completed <td ID="Dywpbokhyyogg-Yajfcqgjkon-PX73">Influenza</td><td ID="ImmunizationDose- 11">10</td><td>06/24/2020</td><td ID="Tqatdwyycepid-WiaafOgif-YZ12"></td><td></td><td ID="Zokhagbszkugm-Vyvwhd-UT29">Complete (Reported)</td><td>Patient</td><td ID="Ynuismucmwkyj-Fzzxg-Kxve-Comment-ID11"></td> [facility] ([facility]) Medications Medication Brand Name Start Date Product [...] EDT active citalopram 10 MG Oral Tablet [facility] infliximab 100 MG Injection [Remicade] Remicade 100 mg intravenous solution Remicade 100 mg intravenous solution 04/01/2021 12:00:00 AM EDT 1000 mg INTRAVENOUS active infliximab 100 MG Injection [Remicade] NextGen ([facility]) Ibuprofen 600 MG Oral Tablet Ibuprofen 600 MG Oral Tablet 12:00:00 AM EDT 1 aborted ibuprofen 600 MG Oral Tablet [facility] ([facility]) 3 ML Insulin Glargine 100 UNT/ML Pen Inj elba [Lantus] Lantus SoloStar 100 UNIT/ML Subcutaneous Solution Pen-injector Lantus SoloStar 100 UNIT/ML Subcutaneous Solution Pen-injector 03/31/2021 12:00:00 AM EDT active 3 ML insulin glargine 100 UNT/ML Pen Inj elba [Lantus] [place] ([facility]) Atenolol 100 MG Oral Tablet Atenolol 100 MG Oral Tablet 03/07 12:00:00 AM EDT 1 active atenolol 100 MG O ral Tablet [place] ([facility]) Lisinopril 40 MG Oral Tablet Lisinopril 40 MG Oral Tablet 12:00:00 AM EDT 1 active lisinopril 40 MG Oral Tablet [place] ([facility]) 3 ML Insulin, Aspart, Human 100 UNT/ML P en Injector [NovoLog] NovoLOG FlexPen 100 UNIT/ML Subcutaneous Solution Pen-injector NovoLOG FlexPen 100 UNIT/ML Subcutaneous Solution Pen-injector 03/31/2021 12:00:00 AM EDT active 3 ML insulin aspart, human 100 UNT/ML Pe n Injector [NovoLog] [place] ([facility]) pantoprazole 40 MG Delayed Release Oral Tablet Pantoprazole Sodium 40 MG Oral Tablet Delayed Release Pantoprazole Sodium 40 MG Oral Tablet Delayed Release 03/31/2021 12:00:00 AM EDT 1 active pantoprazole 40 MG Delayed Release Oral Tablet [place] ([facility]) Tylenol 325 MG Oral Capsule Tylenol 325 MG Oral Capsule 03/07 12:00:00 AM EDT active acetaminophen 325 MG Oral Capsule [Tylenol] [place] ([facility]) Citalopram 20 MG Oral Tablet Citalopram Hydrobromide 2 0 MG Oral Tablet Citalopram Hydrobromide 20 MG Oral Tablet 03/31/2021 12:00:00 AM EDT 1 active citalopram 20 MG Oral Tablet [facility] ([facility]) Rosuvastatin calcium 20 MG Oral Tablet [Crestor] Crest or 20 MG Oral Tablet Crestor 20 MG Oral Tablet 03/31/2021 12:00:00 AM EDT 1 active rosuvastatin calcium 20 MG Oral Tablet [Crestor] [place] ([facility]) Flonase 50 MCG/ACT Nasal Suspension Flonase 50 MCG/ACT Nasal Suspension 03/31/2021 12:00:00 AM EDT 1 active fluticasone propionate 0.05 MG/ACTUAT Metered Dose Nasal Hamer [Flonase] [place] ([facility]) gabapentin 300 MG Oral Capsule Gabapentin 300 MG Oral Capsule Gabapentin 300 MG Oral Capsule 03/31/2021 12:00:00 AM EDT 1 activ e gabapentin 300 MG Oral Capsule [place] ([facility]) Hydrochlorothiazide 25 MG Oral Tablet hydroCHLOROthiaz nik 25 MG Oral Tablet hydroCHLOROthiazide 25 MG Oral Tablet 03/31/2021 12:00:00 AM EDT 1 active hydrochlorothiazide 25 MG Oral T ablet [facility] ([facility]) Citalopram 10 MG Oral Tablet Citalopram Hydrobromide 1 0 MG Oral Tablet Citalopram Hydrobromide 10 MG Oral Tablet 03/31/2021 12:00:00 AM EDT active citalopram 10 MG [facility]t [facility] infliximab 100 MG Injection [Remicade] Remicade 100 mg intravenous solution Remicade 100 mg intravenous solution 12/05/2020 12:00:00 AM EDT completed infliximab 100 MG Injection [facility]ade] [facility] infliximab 100 MG Injection [Remicade] Remicade 100 mg intravenous solution Remicade 100 mg intravenous solution 12/05/2020 12:00:00 AM EDT 900 mg INTRAVENOUS active infliximab 100 MG Injection [facility]icade] [facility] gabapentin 300 MG Oral Capsule gabapentin 300 mg capsu le gabapentin 300 mg capsule 11/19/2020 12:00:00 AM EDT active take 2 capsule by oral route in AM, 1 capsules at lunch and 2 capsule at bedtime every day [facility] 8 % 10/29/2020 12:00:00 AM EST solution 6 APPLY ONCE A DAY TO TOENAILS AT NIGHT APPLY ONCE A DAY TO TOENAILS AT NIGHT SOLD: 11/09/2020 [facility] ciclopirox 80 MG/ML Topical Solution Ciclopirox 8 % Ciclopir ox 8 % 10/28/2020 12:00:00 AM EST 1.0 {application} suspended Ciclopirox 8 % eCW1 ([facility]) ciclopirox 80 MG/ML Topical Solution Ciclopirox 8 % Ciclopir ox 8 % 10/28/2020 12:00:00 AM EST 1.0 {application} active eCW1 ([facility]) ciclopirox 80 MG/ML Topical Solution Ciclopirox 8 % Ciclopir ox 8 % 10/28/2020 12:00:00 AM EST 1.0 {application} active Ciclopirox 8 % eCW1 ([facility]) ciclopirox 80 MG/ML Topical Solution Ciclopirox 8 % Ciclopir ox 8 % 10/28/2020 12:00:00 AM EST 1.0 {application} active Ciclopirox 8 % eCW1 ([facility]) ciclopirox 80 MG/ML Topical Solution Ciclopirox 8 % Ciclopir ox 8 % 10/28/2020 12:00:00 AM EST 1.0 {application} suspended Ciclopirox 8 % eCW1 ([facility]) ciclopirox 80 MG/ML Topical Solution Ciclopirox 8 % Ciclopir ox 8 % 10/28/2020 12:00:00 AM EST 1.0 {application} suspended Ciclopirox 8 % eCW1 ([facility]) ciclopirox 80 MG/ML Topical Solution Ciclopirox 8 % Ciclopir ox 8 % 10/28/2020 12:00:00 AM EST 1.0 {application} active Ciclopirox 8 % eCW1 ([facility]) ciclopirox 80 MG/ML Topical Solution Ciclopirox 8 % Ciclopir ox 8 % 10/28/2020 12:00:00 AM EST 1.0 {application} suspended Ciclopirox 8 % eCW1 ([facility]) ciclopirox 80 MG/ML Topical Solution Ciclopirox 8 % Ciclopir ox 8 % 10/28/2020 12:00:00 AM EST 1.0 {application} active Ciclopirox 8 % eCW1 ([facility]) ciclopirox 80 MG/ML Topical Solution Ciclopirox 8 % Ciclopir ox 8 % 10/28/2020 12:00:00 AM EST 1.0 {application} suspended Ciclopirox 8 % eCW1 ([facility]) 0.77 % 10/28/2020 12:00:00 AM EST gel [...] 1.0 {application} active Ciclopirox 8 % eCW1 ([facility]) ciclopirox 80 MG/ML Topical Solution Ciclopirox 8 % Ciclopir ox 8 % 10/28/2020 12:00:00 AM EST 1.0 {application} active Ciclopirox 8 % eCW1 ([facility]) ciclopirox 80 MG/ML Topical Solution Ciclopirox 8 % Ciclopir ox 8 % 10/28/2020 12:00:00 AM EST 1.0 {application} suspended Ciclopirox 8 % eCW1 ([facility]) 400-57 mg/5 mL 10/02/2020 12:00:00 AM EST [...] 10/02/2020 12:00:00 AM EST ORAL completed MEDENT ([facility]) Amoxicillin 80 MG/ML / Clavulanate 11.4 MG/ML Oral Reyna pension Amoxicillin/Clavulanate Potassium 10/02/2020 12:00:00 AM EST ORAL completed [facility] ([facility]) 0.12 % 09/27/2020 12:00:00 [...] 09/17/2020 12:00:00 AM EST AURICULAR active MEDENT ([facility], ) tizanidine 2 MG Oral Tablet TIZANIDINE [...] 08/15/2020 12:00:00 AM EST ORAL completed MEDENT ([facility], ) Amoxicillin 875 MG / Clavulanate 125 MG Oral Tablet Am oxicillin/Clavulanate Potassium 08/15/2020 12:00:00 AM EST ORAL completed MEDENT ([facility], ) 875-125 mg 08/15/2020 12:00:00 AM EST [...] A DAY FOR 10 DAYS SOLD: 08/28/2020 [facility] empagliflozin 10 MG Oral Tablet [...] 30 SECONDS THEN SPIT OUT SOLD: 07/24/2020 [facility] tizanidine 2 MG Oral Tablet tizanidine 2 mg tablet tizanidin e 2 mg tablet 05/16/2020 12:00:00 AM EDT completed take 2 tablet by oral route every bedtime NextGen ([facility]) POLYETHYLENE GLYCOL 3350 142 MG/ML Oral Solution Polyethylene Glycol 3350 Oral Powder Polyethylene Glycol 3350 Oral Powder 09/18/2019 12:00:00 AM EST 1 aborted polyethylene glycol 3350 170 00 MG Powder for Oral Solution [place] ([facility]) doxycycline hyclate 100 MG Oral Tablet Doxycycline Hyc late 100 MG Oral Tablet Doxycycline Hyclate 100 MG Oral Tablet 09/15/2019 12:00:00 AM EST 1 aborted doxycycline hyclate 100 MG Oral Tablet [place] ([facility]) Ondansetron 4 MG Oral Tablet Ondansetron HCl 4 MG Oral Tablet Ondansetron HCl 4 MG Oral Tablet 09/15/2019 12:00:00 AM EST abo rted ondansetron 4 MG Oral Tablet [place] ([facility]) Metformin hydrochloride 500 MG Oral Tablet metFORMIN H Cl 500MG Oral Tablet metFORMIN HCl 500MG Oral Tablet 02/28/2019 12:00:00 AM EDT 1 aborted metformin hydrochloride 500 MG Oral Tablet [place] ([facility]) infliximab 100 MG Injection [Remicade] R emicade 100MG Intravenous Solution Reconstituted Remicade 100MG Intravenous Solution Reconstituted 09/06 12:00:00 AM EST 1 aborted inflixi mab 100 MG Injection [Remicade] [place] ([facility]) Aspirin 81 MG Delayed Release Oral Table t Adult Aspirin EC Low Strength 81MG Oral Tablet Delayed Release Adult Aspirin EC Low Strength 81MG Oral Tablet Delayed Release 09/20/2018 12:00:00 AM EST 1 ab orted aspirin 81 MG Delayed Release Oral Tablet [place] ([facility]) infliximab 100 MG Injection [Remicade] Remicade 100 [...] type / Coverage type Policy ID Covered constitution party ID Covered constitution party's relationship to nelson Policy Nelson Plan Information UnitedHealthcare Other 0 [id number] Self 0 UnitedHealthcare Other [id number] Self 0 UnitedHealthcare Other [id number] Self 0 UnitedHealthcare Other 0 [id number] Self 0 UnitedHealthcare Other 0 [id number] Self 0 UnitedHealthcare Other 0 [id number] Self 0 UnitedHealthcare Other 0 [id number] Self 0 UnitedHealthcare Other 0 [id number] Self 0 UnitedHealthcare Other 0 [id number] Self 0 UnitedHealthcare Other 0 [id number] Self 0 UnitedHealthcare Other 0 [id number] Self 0 BLUE CROSS [id number] SP [id number] [facility] Part B [id number] Self [id number] MEDICARE [id number] SP [id number] A BLUE CROSS [id number] SP [id number] MEDICARE A [id number] Self [id number] A Medicare Part A of [place] Other 0 [id number] Self 0 MEDICARE [id number] Gloria [id number] Medicare [facility] Medicare Primary [id number] Self [id number] MEDICARE [id number] xxxxxxxxxxx [id number] Medicare NGS Medicare Primary [id number] Self 0 [id number] Medicare Part A of [place] Other 0 [id number] Self 0 Medicare Part A of [place] Other 0 [id number] Self 0 Medicare [place]/NGS Medicare Primary [id number] Self 0 [id number] Medicare Part A of [place] Other 0 [id number] Self 0 Medicare [place]state/NGS Medicare Primary [id number] Self 4 [id number] MEDICARE [id number] SP [id number] A Medicare Part A of [place] Other 0 [id number] Self 0 MEDICARE [id number] SP [id number] A EMPIRE PLAN [facility] [id number] Self [id number] Medicare [place] Medicare Primary [id number] Self [facility] [id number] SP [id number] BCBS EMPIRE YADI DIV [id number] SP [id number] EXCELLUS BCBS [id number] Gloria YLS [id number] EXCELLUS BCBS [id number] xxxxxxxxxxxx [id number] BLUE CROSS [id number] SP [id number] SELF PAY MEDICARE [id number] SP [id number] ANSI-Commercial [id number] ANSI-Medicare Part B [id number] ANSI-Commercial [id number] ANSI-Commercial [id number] ANSI-Commercial [id number] ANSI-Medicare Part B [id number] [facility] Part B [id number] Self [id number] ANSI-Medicare Part B [id number] ANSI-Commercial [id number] ANSI-Commercial [id number] ANSI-Commercial [id number] ANSI-Commercial [id number] ANSI-Medicare Part B [id number] ANSI-Commercial [id number] ANSI-Commercial [id number] [facility]-Medicare Part B [id number] [facility] Part B [id number] Self [id number] ANSI-Commercial [id number] ANSI-Commercial [id number] ANSI-Medicare Part B [id number] ANSI-Commercial [id number] ANSI-Commercial [id number] ANSI-Medicare Part B [id number] ANSI-Commercial [id number] ANSI-Commercial [id number] ANSI-Medicare Part B [id number] [facility] Part B [id number] Self [id number] Medicare Natl Gov't Servi Medicare Primary [id number] Self [id number] MEDICARE C [id number] S [id number] A [facility] [place] [employer] Part B [id number] Self [id number] Medicare Natl Gov't Servi Medicare Primary [id number] Self [id number] [facility] [place] Medigap Part B [id number] Self [id number] Medicare Natl Gov't Servi Medicare Primary [id number] Self [id number] [facility] [place] Med[employer] Part B [id number] Self [id number] Medicare Natl Gov't Servi Medicare Primary [id number] Self [id number] [facility] [place] [employer] Part B [id number] Self [id number] Medicare Upstate/NGS Medicare Primary [id number] Self 0 [id number] BCBS [facility] DIV [id number] SP [id number] [place] [employer] Medigap Part B [id number] Self [id number] [facility] [place] [employer] Part B [id number] Self [id number] 01 [place] Medicare Primary [id number] 2.16.840.1.973170.3.227.99.8646.3822.0 Self [id number] [facility] [employer] Medigap Part B [id number] 01 2.16.840.1.986055.3.227.99.8646.3822.0 Self [id number] 01 [place] Medicare Primary [id number] 2.840.1.462196.3.227.99.8646.3822.0 Self [id number] [facility] [employer] Medigap Part B [id number] 2..840.1.828447.3.227.99.8646.3822.0 Self 8 [id number] 01 [place] Medicare Primary [id number] 2.840.1.670417.3.227.99.8646.3822.0 Self [id number] [facility] [employer] Medigap Part B [id number] 2.840.1.354861.3.227.99.1767.02495.0 Self [id number] Medicare Natl Gov't Servi Medicare Primary [id number] 2.840.1.612161.3.227.99.1767.48455.0 Self [id number] [facility] [employer] Medigap Part B [id number] 2.840.1.476241.3.227.99.1767.17785.0 Self [id number] Medicare Natl Gov't Servi Medicare Primary [id number] 2.840.1.158886.3.227.99.1767.11908.0 Self [id number] [facility] [employer] Medigap Part B ..84 0.1.842690.3.227.99.8646.3822.0 Self [place] Medicare Primary [id number] Self BCBS EMPIRE YADI DIV [id number] SP [id number] [facility] [place] Medigap Part B [id number] Self Medicare Natl Gov't Servi Medicare Primary [id number] Self EMPIRE BLUE CROSS BLUE SHIELD -O/P [id number] 18 [id number] MEDICARE -O/P [id number] 18 [id number] MEDICARE -O/P UNAVAILABLE UNAVAILABLE MEDICARE [id number] SP [id number] [id number] [facility] [id number] SP [id number] BCBS EMPIRE YADI DIV [id number] SP [id number] [facility] [id number] SP [id number] BCBS EMPIRE YADI DIV [id number] SP [id number] Medicare Part A of [place] Other 0 [id number] Self 0 Medicare Part A of [place] Other 0 [id number] Self 0 BCBS EMPIRE YADI DIV [id number] SP [id number] Medicare Part A of [place] Other 0 [id number] Self 0 Medicare Part A of [place] Other 0 [id number] Self 0 Medicare Part A of [place] Other 0 [id number] Self 0 BCBS EMPIRE YADI DIV [id number] SP [id number] BCBS EMPIRE YADI DIV [id number] SP [id number] BCBS EMPIRE YADI DIV [id number] SP [id number] Medicare Part A of [place] Other 0 [id number] Self 0 MEDICARE [id number] SP [id number] MEDICARE C [id number] S [id number] [facility] O [id number] S [id number] BCBS EMPIRE YADI DIV [id number] SP [id number] EMPIRE (STATE EMP) O [id number] S [id number] MEDICARE C [id number] S [id number] EXCELLUS BLUE CROSS BLUE SHIELD HEA [id number] S [id number] MEDICARE MCA [id number] S [id number] MEDICARE MCA [id number] S [id number] ANSI-Commercial [id number] ANSI-Medicare Part B [id number] ANSI-Commercial [id number] ANSI-Commercial [id number] ANSI-Commercial [id number] ANSI-Medicare Part B [id number] BCBS EMPIRE YADI DIV [id number] SP [id number] BCBS EMPIRE YADI DIV [id number] SP [id number] ANSI-Medicare Part B [id number] ANSI-Commercial [id number] ANSI-Commercial [id number] ANSI-Medicare Part B [id number] ANSI-Commercial [id number] ANSI-Commercial [id number] [facility] Part B [id number] Self [id number] Problems, Conditions, and Diagnoses Code Display Name Description Problem Type Effective Dates Data Source(s) G47.33 Obstructive sleep apnea (adult) (pediatr ic) Obstructive sleep apnea (adult) (pediatr Diagnosis 08/07/2020 01:58:53 PM [facility] E78.2 Mixed hyperlipidemia Mixed hyperlipidemia Diagnosis 08/07/2020 01:58:53 PM [facility] I10 Essential (primary) hypertension Essential (primary) h ypertension Diagnosis 08/07/2020 01:58:53 PM [facility] R94.31 Abnormal electrocardiogram [ECG] [EKG] A bnormal electrocardiogram (ECG) (EKG) Diagnosis 08/07/2020 01:58:53 PM [facility] Z01.818 Encounter for other preprocedural examin ation Encounter for other preprocedural examin Diagnosis 08/07/2020 01:58:53 PM [facility] M47.816 [id number] Lumbar Facet arthropathy Problem 06/25/2021 12:00:00 AM EDT eCW1 ([facility]) M47.817 [id number] Spondylosis without myelopathy or radiculopathy, lumbosacral region Problem 01/08/2021 12:00:00 AM EDT eCW1 ([facility]) G89.29 Chronic pain Other chronic pain Problem 12/20/2020 12:0 0:00 AM EDT eCW1 ([facility]) 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 mous [...] 11/15/2020 10:29:00 AM EST MAHNAZ ([facility]) D22.5 [id number] Melanocytic nevi of trunk Problem 10/28/2020 12:00:00 AM EST eCW1 ([facility]) D22.61 [id number] Melanocytic nevi of right upper limb, including shoulder Problem 10/28/2020 12:00:00 AM EST eCW1 (Counts include 234 beds at the [facility]) D22.62 [id number] Melanocytic nevi of left upper l imb, including shoulder Problem 10/28/2020 12:00:00 AM EST eCW1 (Counts include 234 beds at the [facility]) Z87.898 [id number] History of atypical nevus Problem 0 10/28/2020 12:00:00 AM EST eCW1 ([facility]) 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 Problem 10/28/2020 12:00:00 A M EST eCW1 ([facility]) B35.1 [id number] Onychomycosis Problem 10/28/2020 12:00:00 AM EST eCW1 ([facility]) B35.3 [id number] Tinea pedis of both feet Problem 10/28/2020 12:00:00 AM EST eCW1 ([facility]) D22.5 [id number] Nevus of buttock Problem 10/28/2020 12:00:00 AM EST eCW1 ([facility]) G47.33 Obstructive sleep apnea Obstructive sleep apnea 755266 01 08/06/2020 12:00:00 AM EST [facility] E78.5 Hyperlipidemia Hyperlipidemia [id number] 08/06/2020 12:00: 00 AM EST [facility] I10 Essential hypertension Essential hypertension [id number] 08/06/2020 12:00:00 AM EST [facility] R94.31 Abnormal electrocardiogram Abnormal electrocardiogram [id number] 08/06/2020 12:00:00 AM EST [facility] Z01.818 Pre-op evaluation Pre-op evaluation [id number] 08/06/2020 12:00:00 AM [facility] Surgeries/Procedures Procedure Description Date Indications Data Source(s) [...] Impacted Cerumen 07/21/2021 12:00:00 AM EST MEDENT ([facility], ) OFFICE OUTPATIENT VISIT 15 MINUTES 07/21/2021 12:00:00 AM EST MEDENT ([facility], ) OFFICE OUTPATIENT VISIT 15 MINUTES 05/20/2021 12:00:00 AM EDT MEDENT ([facility], ) Summary provided electronically in CCDA format [...] treatment of the lumbar - L4-L5, L5-S1. [facility]. See scanned image. KLavereLPN 04/10/2021 12:00:00 AM EDT MAHANZ ([facility]) Glossectomy (procedure) 04/03/2021 12:00 :00 AM EDT - 04/03/2021 12:00:00 AM EDT MAHNAZ ([facility]) Pain Procedure Log 04/02/2021 12:00:00 AM EDT eCW1 ([facility]) Summary provided electronically in CCDA format & [...] EDT - 03/31/2021 12:00:00 AM EDT MAHNAZ ([facility]) JORGE INHIBITOR/ARB THERAPY RXD/CURRENTLY TAKEN 03/31/2021 12:00:00 AM EDT - 03/31/2021 12:00:00 AM EDT MAHNAZ ([facility]) Transition in care medication list update 03/31/2021 12:00:00 AM EDT - 03/31/2021 12:00:00 AM EDT MAHNAZ ([facility]) continue current medication except where otherwise noted 03/31/2021 12:00:00 AM EDT - 03/31/2021 12:00:00 AM EDT MA[facility]Z ([facility]) OFFICE OUTPATIENT VISIT 15 MINUTES 03/19/2021 12:00:00 AM [facility]T [facility], ) Unclassified drugs 03/18/2021 12:00:00 AM EDT eCW ([facility]) Completion of procedural visit when meets criteria 03/18/2021 12:00:00 AM EDT eCW1 ([facility]) Normal saline solution infus 02/05/2021 12:00:00 AM [...] Procedure Log 01/23/2021 12:00:00 AM EDT eCW1 ([facility]) Remove Impacted Cerumen 01/14/2021 12:00:00 AM EDT [facility] ([facility], ) OFFICE OUTPATIENT VISIT 15 MINUTES 01/14/2021 12:00:00 AM EDT [facility] ) Completion of procedural visit when meets criteria 01/09/2021 12:00:00 AM EDT eCW1 ([facility]) Unclassified drugs 01/09/2021 12:00:00 AM EDT eCW1 ([facility]) Completion of procedural visit when meets criteria 12/09/2020 12:00:00 AM EDT eCW1 ([facility]) OFFICE/OUTPATIENT VISIT, EST 11/19/2020 12:00:00 AM EDT - 11/19/2020 12:00:00 AM EDT [facility] ([facility]) GLOSSECTOMY PRTL W/UNI RADICAL NECK DSJ 10/30/2020 12:00:00 AM EST - 10/30/2020 12:00:00 AM EST MAHNAZ ([facility]) GLOSSECTOMY PRTL W/UNI RADICAL NECK DSJ 09/26/2020 12: 00:00 AM EST MEDENT ([facility], ) GLOSSECTOMY PRTL W/UNI RADICAL NECK DSJ 09/26/2020 12: 00:00 AM EST MEDENT ([facility], ) GLOSSECTOMY PRTL W/UNI RADICAL NECK DSJ 09/26/2020 12: 00:00 AM EST MEDENT ([facility], ) [facility] (formerly [facility]) visit, established patient; a medically-necessary, oncp-qk-fwak encounter (one-on-one) between an established patient and a formerly [facility] practitioner during which time one or more formerly [facility] services are rendered and includes a typical bundle of medicare-covered services that would be furnished supervisor carbon electrodes to a patient receiving a fq visit FQ Visit, established patient 09/24/2020 12:00:00 AM EST MAHNAZ ([facility]) OFFICE OUTPATIENT VISIT 25 MINUTES 09/20/2020 12:00:00 AM EST MEDENT ([facility], ) Remove Impacted Cerumen 09/17/2020 12:00:00 AM EST MEDENT ([facility], ) OFFICE/OUTPATIENT VISIT, EST 09/03/2020 12:00:00 AM [...] ANTERIOR TWO-THIRDS 08/15/2020 12:00:00 AM EST MEDENT ([facility], ) EKG with Interpretation and Report EKG with Interpretation a nd Report 08/05/2020 12:00:00 AM EST MAHNAZ ([facility]) [facility] (fq) visit, established patient; a medically-necessary, hcxp-wu-omqj encounter (one-on-one) between an established patient and a fq practitioner during which time one or more [facility] services are rendered and includes a typical bundle of medicare-covered services that would be furnished supervisor carbon electrodes to a patient receiving a fq visit FQHC Visit, established patient 08/05/2020 12:00:00 AM EST MAHNAZ ([facility]) Ekg With Interpretation and Report Ekg With Interpretation a nd Report 08/05/2020 12:00:00 AM EST MAHNAZ ([facility]) Remove Impacted Cerumen 07/17/2020 12:00:00 AM EST MEDENT ([facility], ) Results ID Date Data Source [id number] 08/01/2021 12:00:00 AM EST [facility] Name Value Range Interpretation Code Description Data Lucille rce(s) Supporting Document(s) SARS-COV 2 PCR (NASAL SWAB) NEGATIVE [place] [facility] This lab was ordered by Diane Farias4 and reported by [employer]. ID Date Data Source [id number] 08/01/2021 12:00:00 AM EST [facility] Name Value Range Interpretation Code Description Data Lucille rce(s) Supporting Document(s) SARS-CoV-2 (COVID-19) RNA [Presence] in Respiratory specimen by ROSA ELENA with probe detection Not detected [facility] This lab was ordered by [facility] and r eported by [employer]. ID Date Data Source [id number] 03/31/2021 11:36:00 AM EDT MAHNAZ ([facility]) Name Value Range Interpretation Code Description Data Lucille rce(s) Supporting Document(s) Hemoglobin A1c/Hemoglobin.total in Blood 8.4 Above high normal Hgb A1c [facility] ([facility]) ID Date Data Source [id number] 01/25/2021 09:15:00 AM EDT [facility] Name Value Range Interpretation Code Description Data Lucille rce(s) Supporting Document(s) SARS-CoV-2 (COVID-19) RNA [Presence] in Respiratory specimen by ROSA ELENA with probe detection Not Detected [facility] This lab was ordered by [facility] and reported by [employer] ID Date Data Source [id number] 01/04/2021 10:15:00 AM EDT [facility] Name Value Range Interpretation Code Description Data Lucille rce(s) Supporting Document(s) SARS-CoV-2 (COVID-19) RNA [Presence] in Respiratory specimen by ROSA ELENA with probe detection Not Detected [facility] and reported by [employer] ID Date Data Source [id number] 12/04/2020 12:00:00 PM EDT [facility] Name Value Range Interpretation Code Description Data Lucille rce(s) Supporting Document(s) SARS-CoV-2 (COVID-19) RNA [Presence] in Respiratory specimen by ROSA ELENA with probe detection Not Detected [facility] This lab was ordered by [facility] and reported by [employer]. ID Date Data Source [id number] 12/02/2020 12:00:00 AM [facility]T [facility] Name Value Range Interpretation Code Description Data Lucille rce(s) Supporting Document(s) SARS-CoV2 Rapid Antigen Not Detected [facility] This lab was ordered by [facility] and reported by [facility]. ID Date Data Source [id number] 11/18/2020 12:00:00 AM EDT [facility] Name Value Range Interpretation Code Description Data Lucille rce(s) Supporting Document(s) SARS-CoV2 Rapid Antigen Not Detected [facility] This lab was ordered by [facility] and reported by [facility]. ID Date Data Source [id number] 09/27/2020 11:38:00 AM EST MEDENT ([facility]) Name Value Range Interpretation Code Description Data Lucille rce(s) Supporting Document(s) Glucose [Mass/volume] in Capillary blood by Glucometer 266 mg/dL 83-110 Above high normal MEDENT ([facility]) ID Date Data Source [id number] 09/27/2020 08:45:00 AM EST [facility] ([facility]) Name Value Range Interpretation Code Description Data Lucille rce(s) Supporting Document(s) Glucose [Mass/volume] in Capillary blood by Glucometer 265 mg/dL 83-110 Above high normal [facility] ([facility]) ID Date Data Source [id number] 09/27/2020 04:30:00 AM EST [facility] ([facility]) Name Value Range Interpretation Code Description Data Lucille rce(s) Supporting Document(s) Glucose, Fasting 179 mg/dL 70-100 Above high normal [facility] ([facility]) Creatinine For GFR 1.39 mg/dL 0.70-1.30 Above high normal [facility]) Blood Urea Nitrogen 28 mg/dL 7-18 Above high normal [facility] ([facility]) Glomerular Filtration Rate 53.5 Normal (applies to n on-numeric results) [facility] ([facility]) <content>Units are mL/min/1.73 m2</content>
<content></content>
<content>Chronic Kidney Disease Staging per NKF:</content>
<content></content>
<content>Stage I & II GFR >=60 Normal to Mildly Decreased</content>
<content>Stage III GFR 30- 59 Moderately Decreased</content>
<content>Stage IV GFR 15-29 Severely Decreased</content>
<content>Stage V GFR <15 Very Little GFR Left</content>
<content>ESRD GFR <15 on [employer]</content>
<content></content> Potassium Serum 5.1 meq/L 3.5-5.1 Normal (applies to non-numeric results) [facility] ([facility], ) Chloride Level 102 meq/L 98-107 Normal (applies to non-numeric r esults) [facility] ) Sodium Level 134 meq/L 136-145 Below low normal [facility] Carbon Dioxide Level 27 meq/L 21-32 Normal (applies to non-num darvin results) [facility] ([facility], ) Anion Gap 5 meq/L 8-16 Below low normal [facility] ( [facility], ) Ast/Sgot 17 U/L 7-37 Normal (applies to non-numeric resul ts) [facility] ([facility], ) Calcium Level 8.9 mg/dL 8.8-10.2 Normal (applies to non-numeric re sults) [facility] ([facility], ) Alt/SGPT 24 U/L 12-78 Normal (applies to non-numeric resul ts) [facility] ([facility], ) Alkaline Phosphatase 70 U/L 45-117 Normal (applies to non-num darvin results) [facility] ([facility], ) Total Protein 7.2 GM/DL 6.4-8.2 Normal (applies to non-numeric re sults) [facility] ([facility], ) Bilirubin,Total 0.7 mg/dL 0.2-1.0 Significant change down [facility] ([facility], ) Albumin/Globulin Ratio 1.0 Normal (applies to non-n umeric results) [facility]) Albumin 3.6 GM/DL 3.2-5.2 Normal (applies to non-numeric resul ts) [facility]) ID Date Data Source [id number] 09/27/2020 04:30:00 AM EST [facility] ([facility]) Name Value Range Interpretation Code Description Data Lucille rce(s) Supporting Document(s) White Blood Count 10.2 10 4.0-10.0 Above high normal [facility] ([facility]) Red Blood Count 5.25 10 4.30-6.10 Normal (applies to non-numeric results) [facility]) Hematocrit 46.7 % 42.0-52.0 Normal (applies to non-numeric resul ts) [facility]) Hemoglobin 15.3 g/dL 13.5-17.5 Normal (applies to non-numeric resul ts) [facility]) Mean Corpuscular Volume 89.0 fl 80.0-96.0 Normal ( applies to non-numeric results) [facility] ([facility]) Mean Corpuscular Hemoglobin 29.1 pg 27.0-33.0 Norm al (applies to non-numeric results) [facility]) Mean Corpuscular HGB Conc 32.8 g/dL 32.0-36.5 Normal (applies to non-numeric results) [facility]) Red Cell Distribution Width 12.8 % 11.5-14.5 Norm al (applies to non-numeric results) [facility] ([facility]) Platelet Count, Automated 201 10 150-450 Normal (applies to non-numeric results) [facility]) Nucleated Red Blood Cell % 0.0 % 0-0 Normal (applies to n on-numeric results) [facility]) ID Date Data Source [id number] 09/26/2020 07:25:00 PM EST [facility] ([facility]) Name Value Range Interpretation Code Description Data Lucille rce(s) Supporting Document(s) Glucose [Mass/volume] in Capillary blood by Glucometer 192 mg/dL 83-110 Above high normal [facility] ([facility]) ID Date Data Source [id number] 09/26/2020 04:57:00 PM EST [facility] ([facility]) Name Value Range Interpretation Code Description Data Lucille rce(s) Supporting Document(s) Glucose [Mass/volume] in Capillary blood by Glucometer 194 mg/dL 83-110 Above high normal [facility] ([facility]) ID Date Data Source [id number] 09/26/2020 12:50:00 PM EST [facility] Name Value Range Interpretation Code Description Data Lucille rce(s) Supporting Document(s) Glucose, Fasting 232 mg/dL 70-100 Above high [facility] Blood Urea Nitrogen 24 mg/dL 7-18 Above high normal [facility] ([facility]) Creatinine For GFR 1.64 mg/dL 0.70-1.30 Above high normal [facility] ([facility]) Glomerular Filtration Rate 44.2 Normal (applies to n on-numeric results) [facility] ([facility]) <content>Units are mL/min/1.73 m2</content>
<content></content>
<content>Chronic Kidney Disease Staging per NKF:</content>
<content></content>
<content>Stage I & II GFR >=60 Normal to Mildly Decreased</content>
<content>Stage III GFR 30- 59 Moderately Decreased</content>
<content>Stage IV GFR 15-29 Severely Decreased</content>
<content>Stage V GFR <15 Very Little GFR Left</content>
<content>ESRD GFR <15 on [employer]</content>
<content></content> Sodium Level 137 meq/L 136-145 Normal (applies to non-numeric res ults) [facility] ([facility]) Potassium Serum 5.1 meq/L 3.5-5.1 Normal (applies to non-numeric results) [facility] ([facility]) Chloride Level 103 meq/L 98-107 Normal (applies to non-numeric r esults) [facility] ([facility]) Carbon Dioxide Level 26 meq/L 21-32 Normal (applies to non-num darvin results) [facility] ([facility]) Anion Gap 8 meq/L 8-16 Normal (applies to non-numeric resul ts) [facility] ([facility]) Calcium Level 9.5 mg/dL 8.8-10.2 Normal (applies to non-numeric re sults) [facility] ([facility]) Ast/Sgot 18 U/L 7-37 Normal (applies to non-numeric resul ts) [facility] ([facility]) Alt/SGPT 26 U/L 12-78 Normal (applies to non-numeric resul ts) [facility] ([facility]) Alkaline Phosphatase 76 U/L 45-117 Normal (applies to non-num darvin results) [facility] ([facility]) Total Protein 7.6 GM/DL 6.4-8.2 Normal (applies to non-numeric re sults) [facility] ([facility]) Bilirubin,Total 0.4 mg/dL 0.2-1.0 Normal (applies to non-numeric results) [facility] ([facility]) Albumin/Globulin Ratio 1.1 Normal (applies to non-n umeric results) [facility] ([facility]) Albumin 4.0 GM/DL 3.2-5.2 Normal (applies to non-numeric resul ts) [facility] ([facility]) ID Date Data Source [id number] 09/26/2020 12:50:00 PM EST [facility] ([facility]) Name Value Range Interpretation Code Description Data Lucille rce(s) Supporting Document(s) White Blood Count 11.2 10 4.0-10.0 Above high normal [facility] ([facility], ) Red Blood Count 5.46 10 4.30-6.10 Normal (applies to non-numeric results) [facility] ([facility]) Hemoglobin 15.6 g/dL 13.5-17.5 Normal (applies to non-numeric resul ts) [facility]) Hematocrit 48.8 % 42.0-52.0 Normal (applies to non-numeric resul ts) [facility] ([facility]) Mean Corpuscular Volume 89.4 fl 80.0-96.0 Normal ( applies to non-numeric results) [facility] ([facility]) Mean Corpuscular HGB Conc 32.0 g/dL 32.0-36.5 Normal (applies to non-numeric results) [facility] ([facility]) Mean Corpuscular Hemoglobin 28.6 pg 27.0-33.0 Norm al (applies to non-numeric results) [facility] ([facility]) Platelet Count, Automated 208 10 150-450 Normal (applies to non-numeric results) [facility] ([facility]) Red Cell Distribution Width 12.9 % 11.5-14.5 Norm al (applies to non-numeric results) [facility] ([facility]) Nucleated Red Blood Cell % 0.0 % 0-0 Normal (applies to n on-numeric results) [facility]) ID Date Data Source [id number] 09/26/2020 11:57:00 AM [facility]) Name Value Range Interpretation Code Description Data Lucille rce(s) Supporting Document(s) Glucose [Mass/volume] in Capillary blood by Glucometer 193 mg/dL 83-110 Above high normal [facility]) ID Date Data Source [id number] 09/26/2020 08:24:00 AM EST [facility] ([facility]) Name Value Range Interpretation Code Description Data Lucille rce(s) Supporting Document(s) Surgical pathology study Laboratory test result [facility]) <content>FINAL DIAGNOSIS</content>
< content></content>
<content>BRADEN - Left [...] stain is negative.</content>
<content>See also previous report [id number].</content>
<content>See summary report.</content>
<content></content>
<content>C - Contents [...] submandibular gland. Sectioning reveals preserved lobular</content>
<content>architecture. Policy Officer in one.</content>
<content></content>
<content>E - Received in [...] MD 10/01/2020712</content>
<content></content> ID Date Data Source [id number] 09/26/2020 07:13:00 AM EST [facility] ([facility], ) Name Value Range Interpretation Code Description Data Lucille rce(s) Supporting Document(s) Glucose [Mass/volume] in Capillary blood by Glucometer 153 mg/dL 83-110 Above high normal [facility] ([facility], ) ID Date Data Source [id number] 09/21/2020 10:00:00 AM EST [facility] Name Value Range Interpretation Code Description Data Lucille rce(s) Supporting Document(s) SARS coronavirus 2 RNA Not Detected [facility] [place] This lab was ordered by [facility] and reported by [facility]. ID Date Data Source [id number] 09/03/2020 11:43:00 AM EST [facility] ([facility]) Name Value Range Interpretation Code Description Data Lucille rce(s) Supporting Document(s) <0.2 0.0-0.5 CRP [facility] ([facility]) ID Date Data Source [id number] 09/03/2020 11:43:00 AM EST [facility] ([facility]) Name Value Range Interpretation Code Description Data Lucille rce(s) Supporting Document(s) 53.1 mL/min/1.73 eGFR [place] [facility] ([facility]) 1.5 mg/dL 0.9-1.2 Above high normal CREATININE [facility] ([facility]) 45.9 mL/min/1.73m eGFR Non- A merican [facility] ([facility]) ID Date Data Source [id number] 09/03/2020 11:43:00 AM EST [facility] ([facility]) Name Value Range Interpretation Code Description Data Lucille rce(s) Supporting Document(s) 19 U/L 15-37 AST [facility] ID Date Data Source [id number] 09/03/2020 11:43:00 AM EST [facility] ([facility]) Name Value Range Interpretation Code Description Data Lucille rce(s) Supporting Document(s) 34 U/L 30-65 ALT [facility] ID Date Data Source [id number] 09/03/2020 11:43:00 AM EST [facility] ([facility]) Name Value Range Interpretation Code Description Data Lucille rce(s) Supporting Document(s) 11 mm/Hr 0-20 ESR [facility] ([facility]) ID Date Data Source [id number] 09/03/2020 11:43:00 AM EST [facility] ([facility]) Name Value Range Interpretation Code Description Data Lucille rce(s) Supporting Document(s) 5.81 10*6/uL 4.00-5.90 RBC [facility] ([facility] 7.0 10*3/uL 3.7-10.1 WBC [facility] ([facility]) 52.7 % 39.0-55.0 HCT [facility] ([facility]) 17.1 g/dL 13.5-18.0 HGB [facility] ([facility]) 90.8 fL 70.0-100.0 MCV [facility] ([facility]) 12.4 % 10.0-15.0 RDW [facility] ([facility]) 29.4 pg 26.0-34.0 MCH [facility] ([facility]) ID Date Data Source [id number] 08/27/2020 03:04:00 PM EST [facility] ([facility]) Name Value Range Interpretation Code Description Data Lucille rce(s) Supporting Document(s) Creatinine For GFR 1.57 mg/dL 0.70-1.30 Above high normal [facility] ([facility]) Glomerular Filtration Rate 46.5 Normal (applies to n on-numeric results) [facility] ([facility]) <content>Units are mL/min/1.73 m2</content>
<content></content>
<content>Chronic Kidney Disease Staging per NKF:</content>
<content></content>
<content>Stage I & II GFR >=60 Normal to Mildly Decreased</content>
<content>Stage III GFR 30- 59 Moderately Decreased</content>
<content>Stage IV GFR 15-29 Severely Decreased</content>
<content>Stage V GFR <15 Very Little GFR Left</content>
<content>ESRD GFR <15 on [employer]</content>
<content></content> ID Date Data Source [id number] 08/27/2020 03:04:00 PM EST [facility] ([facility]) Name Value Range Interpretation Code Description Data Lucille rce(s) Supporting Document(s) Urea nitrogen [Mass/volume] in Serum or Plasma 23 mg/dL 7-18 Above high normal [facility] ([facility]) ID Date Data Source [id number] 08/15/2020 09:36:00 AM EST [facility] ([facility]) Name Value Range Interpretation Code Description Data Lucille rce(s) Supporting Document(s) Surgical pathology study Laboratory test result [facility] ([facility]) FINAL DIAGNOSIS A-Left lateral oral tongue, superior, [...] MD 08/16/2020 1310 ID Date Data Source [id number] 08/15/2020 07:12:00 AM EST [facility] ([facility]) Name Value Range Interpretation Code Description Data Lucille rce(s) Supporting Document(s) Glucose [Mass/volume] in Capillary blood by Glucometer 152 mg/dL 83-110 Above high normal [facility] ([facility]) ID Date Data Source [id number] 08/10/2020 11:45:00 AM EST [facility] Name Value Range Interpretation Code Description Data Lucille rce(s) Supporting Document(s) SARS coronavirus 2 RNA [facility] This lab was ordered by [facility] and reported by [facility]. ID Date Data Source [id number] 08/05/2020 09:50:00 AM EST [facility] ([facility]) Name Value Range Interpretation Code Description Data Lucille rce(s) Supporting Document(s) Hemoglobin A1c/Hemoglobin.total in Blood 7.0 Abnormal (applies to non-numeric results) Hgb A1c [facility] ([facility]) ID Date Data Source [id number] 06/26/2020 12:00:00 AM EDT [facility] Name Value Range Interpretation Code Description Data Lucille rce(s) Supporting Document(s) SARS coronavirus 2 Ag [facility] This lab was ordered by [facility] and reported by [facility] Procedure Social History Code Duration Value Status Description Data Source(s ) Caffeine Use Details 08/06/2021 12:00:00 AM EST comple claude coffee and soda, 5 cups [facility] ([facility]) Smoking 08/06/2021 12:00:00 AM EST Unknown if ever smoked comp leted Unknown if ever smoked [facility] ([facility]) Smoking 06/25/2021 12:00:00 AM EDT Never Smoker completed Never S moker eCW1 ([facility]) Smoking 05/15/2021 12:00:00 AM EDT Ex-smoker (finding) complet ed Ex-smoker (finding) [facility] ([facility]) Smoking 04/17/2021 12:00:00 AM EDT Ex-smoker (finding) complet ed Ex-smoker (finding) [facility] ([facility]) Smoking 04/02/2021 12:00:00 AM EDT Never Smoker completed Never S moker eCW1 ([facility]) Smoking 03/31/2021 12:00:00 AM EDT Never smoked tobacco (findi ng) completed Never smoked tobacco (finding) [facility] ([facility]) Smoking 03/17/2021 12:00:00 AM EDT Never Smoker completed Never S moker eCW1 ([facility]) Smoking 02/06/2021 12:00:00 AM EDT Never Smoker completed Never S moker eCW1 ([facility]) Smoking 01/29/2021 12:00:00 AM EDT Never Smoker completed Never S moker eCW1 ([facility]) Smoking 01/29/2021 12:00:00 AM EDT Never Smoker completed Never S moker eCW1 ([facility]) Smoking 01/23/2021 12:00:00 AM EDT Never Smoker completed Never S moker eCW1 ([facility]) Smoking 01/09/2021 12:00:00 AM EDT Never Smoker completed Never S moker eCW1 ([facility]) Smoking 01/07/2021 12:00:00 AM EDT Never Smoker completed Never S moker eCW1 ([facility]) Smoking 12/05/2020 12:00:00 AM EDT Never Smoker completed Never S moker eCW1 ([facility]) Smoking 12/05/2020 12:00:00 AM EDT Never Smoker completed Never S moker eCW1 ([facility]) Smoking 11/26/2020 12:00:00 AM EDT Never Smoker completed Never S moker eCW1 ([facility]) Alcohol Use Details 11/19/2020 12:00:00 AM EDT complet ed all types 3 drinks occasion [facility] ([facility]) 11/19/2020 12:00:00 AM EDT Ex-cigarette smoker completed Ex-cigarette smoker [facility] ([facility]) Smoking 11/11/2020 12:00:00 AM EST Ex-smoker (finding) complet ed Ex-smoker (finding) [facility] ([facility]) Assertion 11/11/2020 12:00:00 AM EST Finding relat ing to drug misuse behavior (finding) completed Finding relating to drug misuse behavior (finding) [facility] ([facility]) Assertion 11/11/2020 12:00:00 AM EST Current drinker of al cohol (finding) completed Current drinker of alcohol (finding) [facility] ([facility]) Smoking 11/11/2020 12:00:00 AM EST Ex-smoker (finding) complet ed Ex-smoker (finding) [facility] ([facility]) Assertion 11/11/2020 12:00:00 AM EST Finding relat ing to drug misuse behavior (finding) completed Finding relating to drug misuse behavior (finding) [facility] ([facility]) Assertion 11/11/2020 12:00:00 AM EST Current drinker of al cohol (finding) completed Current drinker of alcohol (finding) [facility] ([facility]) Smoking 10/28/2020 12:00:00 AM EST Never Smoker completed Never S moker eCW1 ([facility]) Smoking 08/20/2020 12:00:00 AM EST Non Smoker completed Non Smoke r [facility] ([facility]) Smoking 08/14/2020 12:00:00 AM EST Never Smoker completed Never S moker eCW1 ([facility]) Smoking 08/14/2020 12:00:00 AM EST Never Smoker completed Never S moker eCW1 ([facility]) Alcohol intake 08/07/2020 12:00:00 AM EST Yes completed [facility] Smoking 08/07/2020 12:00:00 AM EST Never smoker completed Never s moker [facility] Smoking 08/05/2020 12:00:00 AM EST Ex-smoker (finding) complet ed Ex-smoker (finding) [facility] ([facility]) Vital Signs ID Date Data Source UNK [...] Body height 70 [in_i] 70 [in_i] [facility] ([facility]) 5'10" Body weight 251.00 [lb_av] 251.00 [lb_av] MEDEN T ([facility]) Body mass index (BMI) [Ratio] 36.0 kg/m2 36.0 k g/m2 [facility] ([facility]) [place] body weight 166 [lb_av] 166 [lb_av] MED[facility] T ([facility]) Body weight 113.854 kg 113.854 kg [facility] ([facility]) Body surface area Derived from formula 2.30 m2 2.30 m2 [facility] ([facility]) Body weight 252 [lb_av] 252 [lb_av] eCW1 ([facility]) Body weight 114.31 kg 114.31 kg eCW1 ([facility]) Body height 70 [in_i] 70 [in_i] eCW1 ([facility]) Body mass index (BMI) [Ratio] 36.15 kg/m2 36.15 kg/m2 eCW1 ([facility]) Heart rate 60 /min 60 /min eCW1 ([facility]) Respiratory rate 18 /min 18 /min eCW1 ([facility]) Body temperature 98.4 [degF] 98.4 [degF] eCW1 ( [facility]) Systolic blood pressure 120 mm[Hg] 120 mm[Hg] e CW1 ([facility]) Diastolic blood pressure 63 mm[Hg] 63 mm[Hg] eCW1 ([facility]) Body weight 251.50 [lb_av] 251.50 [lb_av] MEDEN T ([facility]) Body mass index (BMI) [Ratio] 36.1 kg/m2 36.1 k g/m2 [facility] ([facility]) [place] body weight 166 [lb_av] 166 [lb_av] MEDEN T ([facility]) Body height 70 [in_i] 70 [in_i] [facility] ([facility]) 5'10" Body weight 114.080 kg 114.080 kg [facility] ([facility]) Body surface area Derived from formula 2.30 m2 2.30 m2 [facility] ([facility]) Body temperature 98.7 [degF] 98.7 [degF] GREENW AY ([facility]) pt unable to obtain full set of vitals, L[facility]dwinCA Body weight 250 [lb_av] 250 [lb_av] [place] pt unable to obtain full set of vitals, LbaldwinCA PhenX - pain, abdominal - type and intensity protocol 0 0 MAHNAZ ([facility]) pt unable to obtain full set of vitals, LbaldwinCA Systolic blood pressure 116 mm[Hg] 116 mm[Hg] G REENWAY ([facility]) Limited vital signs due to telehealth vi sit due to covid 19. KLavereLPN Diastolic blood pressure 69 mm[Hg] 69 mm[Hg] MAHNAZ ([facility]) Limited vital signs due to telehealth vi sit due to covid 19. KLavereLPN PhenX - pain, abdominal - type and intensity protocol 5 5 MAHNAZ ([facility]) Limited vital signs due to telehealth vi sit due to covid 19. [facility] Body weight 248.8 [lb_av] 248.8 [lb_av] eCW1 ([facility]) Body height 70 [in_i] 70 [in_i] eCW1 ([facility]) Body mass index (BMI) [Ratio] 35.70 kg/m2 35.70 kg/m2 eCW1 ([facility]) Heart rate 59 /min 59 /min eCW1 ([facility]) Respiratory rate 18 /min 18 /min eCW1 ([facility]) Body temperature 99.5 [degF] 99.5 [degF] eCW1 ( [facility]) Systolic blood pressure 125 mm[Hg] 125 mm[Hg] e CW1 ([facility]) Diastolic blood pressure 70 mm[Hg] 70 mm[Hg] eCW1 ([facility]) Heart rate 60 /min 60 /min [facility]HNAZ [facility] Systolic blood pressure 108 mm[Hg] 108 mm[Hg] G REENWAY ([facility]) Body temperature 96.6 [degF] 96.6 [degF] GREENW AY ([facility]) Heart rate rhythm 1 1 GREENWA Y ([facility]) Diastolic blood pressure 62 mm[Hg] 62 mm[Hg] MAHNAZ ([facility]) Body weight 246 [lb_av] 246 [lb_av] [facility] Body height 70 [in_i] 70 [in_i] [facility] Respiratory rate 20 /min 20 /min MAHNAZ ([facility]) Body surface area Derived from formula 2.28 m2 2.28 m2 [facility] ([facility]) Oxygen saturation in Arterial blood by Pulse oximetry 97 % 97 % [facility] ([facility]) PhenX - pain, abdominal - type and intensity protocol 0 0 MAHNAZ ([facility]) Inhaled oxygen flow rate 0 L/min 0 L/min [facility] ([facility]) Body mass index (BMI) [Ratio] 35.3 kg/m2 35.3 k g/m2 MAHNAZ ([facility]) Inhaled oxygen concentration 21 % 21 % [facility] ([facility]) Body weight 256.00 [lb_av] 256.00 [lb_av] MEDEN T ([facility]) Body mass index (BMI) [Ratio] 36.7 kg/m2 36.7 k g/m2 [facility] ([facility]) [place] body weight 166 [lb_av] 166 [lb_av] MEDEN T ([facility]) Body weight 116.122 kg 116.122 kg [facility] ([facility]) Body surface area Derived from formula 2.32 m2 2.32 m2 [facility] ([facility]) Body height 70 [in_i] 70 [in_i] [facility] ([facility]) 5'10" Body height 70 [in_i] 70 [in_i] [facility] ([facility]) 5'10" Body weight 256.00 [lb_av] 256.00 [lb_av] MEDEN T ([facility]) Body mass index (BMI) [Ratio] 36.7 kg/m2 36.7 k g/m2 [facility] ([facility]) [place] body weight 166 [lb_av] 166 [lb_av] [facility] Body weight 116.122 kg 116.122 kg [facility] ([facility]) Body surface area Derived from formula 2.32 m2 2.32 m2 [facility] ([facility]) Body weight 248.0 [lb_av] 248.0 [lb_av] eCW1 ([facility]) Diastolic blood pressure 58 mm[Hg] 58 mm[Hg] eCW1 ([facility]) Body height 70 [in_i] 70 [in_i] eCW1 ([facility]) Body mass index (BMI) [Ratio] 35.58 kg/m2 35.58 kg/m2 eCW1 ([facility]) Heart rate 58 /min 58 /min eCW1 ([facility]) Respiratory rate 18 /min 18 /min eCW1 ([facility]) Body temperature 96.6 [degF] 96.6 [degF] eCW1 ( [facility]) Systolic blood pressure 118 mm[Hg] 118 mm[Hg] e CW1 ([facility]) Body weight 248.2 [lb_av] 248.2 [lb_av] eCW1 ([facility]) Body height 70 [in_i] 70 [in_i] eCW1 ([facility]) Body mass index (BMI) [Ratio] 35.61 kg/m2 35.61 kg/m2 eCW1 ([facility]) Heart rate 55 /min 55 /min eCW1 ([facility]) Respiratory rate 18 /min 18 /min eCW1 ([facility]) Body temperature 95.5 [degF] 95.5 [degF] eCW1 ( [facility]) Systolic blood pressure 138 mm[Hg] 138 mm[Hg] e CW1 ([facility]) Diastolic blood pressure 66 mm[Hg] 66 mm[Hg] eCW1 ([facility]) Systolic blood pressure 124 mm[Hg] 124 mm[Hg] [...] /min 76 /min [facility] ([facility]) Body temperature 36.11 Cherrie 36.11 Cherrie [facility] ([facility]) Respiratory rate 17 /min 17 /min [facility] ([facility]) Body weight 248.8 [lb_av] 248.8 [lb_av] eCW1 ([facility]) Heart rate 53 /min 53 /min eCW1 ([facility]) Respiratory rate 18 /min 18 /min eCW1 ([facility]) Body temperature 97.0 [degF] 97.0 [degF] eCW1 ( [facility]) Systolic blood pressure 117 mm[Hg] 117 mm[Hg] e CW1 ([facility]) Diastolic blood pressure 62 mm[Hg] 62 mm[Hg] eCW1 ([facility]) Body height 70 [in_i] 70 [in_i] eCW1 ([facility]) Body mass index (BMI) [Ratio] 35.70 kg/m2 35.70 kg/m2 eCW1 ([facility]) Body weight 245.8 [lb_av] 245.8 [lb_av] eCW1 ([facility]) Body height 70 [in_i] 70 [in_i] eCW1 ([facility]) Body mass index (BMI) [Ratio] 35.26 kg/m2 35.26 kg/m2 eCW1 ([facility]) Heart rate 60 /min 60 /min eCW1 ([facility]) Respiratory rate 18 /min 18 /min eCW1 ([facility]) Body temperature 98.6 [degF] 98.6 [degF] eCW1 ( [facility]) Systolic blood pressure 136 mm[Hg] 136 mm[Hg] e CW1 ([facility]) Diastolic blood pressure 64 mm[Hg] 64 mm[Hg] eCW1 ([facility]) Body weight 249.00 [lb_av] 249.00 [lb_av] MEDEN T ([facility]) [place] body weight 166 [lb_av] 166 [lb_av] MEDEN T ([facility]) Body height 70 [in_i] 70 [in_i] [facility] ([facility]) 5'10" Body surface area Derived from formula 2.29 m2 2.29 m2 [facility] ([facility]) Body weight 112.946 kg 112.946 kg [facility] ([facility]) Body mass index (BMI) [Ratio] 35.7 kg/m2 35.7 k g/m2 [facility] ([facility]) [place] body weight 166 [lb_av] 166 [lb_av] MEDEN T ([facility]) Body weight 112.946 kg 112.946 kg [facility] Body surface area Derived from formula 2.29 m2 2.29 m2 [facility] ([facility]) Body height 70 [in_i] 70 [in_i] [facility] ([facility]) 5'10" Body weight 249.00 [lb_av] 249.00 [lb_av] MEDEN T ([facility]) Body mass index (BMI) [Ratio] 35.7 kg/m2 35.7 k g/m2 [facility] ([facility]) Systolic blood pressure 142 mm[Hg] 142 mm[Hg] e CW1 ([facility]) Body weight 245.6 [lb_av] 245.6 [lb_av] eCW1 ([facility]) Body height 70 [in_i] 70 [in_i] eCW1 ([facility]) Body mass index (BMI) [Ratio] 35.24 kg/m2 35.24 kg/m2 eCW1 ([facility]) Heart rate 50 /min 50 /min eCW1 ([facility]) Respiratory rate 18 /min 18 /min eCW1 ([facility]) Body temperature 98.2 [degF] 98.2 [degF] eCW1 ( [facility]) Diastolic blood pressure 66 mm[Hg] 66 mm[Hg] eCW1 ([facility]) Systolic blood pressure 134 mm[Hg] 134 mm[Hg] N extGen ([facility]) Diastolic blood pressure 82 mm[Hg] 82 mm[Hg] [facility] ([facility]) Body height 180.34 cm 180.34 cm Next[facility] ([facility]) Body weight 112.491 kg 112.491 kg [facility] ([facility]) Systolic blood pressure 122 mm[Hg] 122 mm[Hg] N extGen ([facility]) Diastolic blood pressure 80 mm[Hg] 80 mm[Hg] [facility] ([facility]) Heart rate 60 /min 60 /min [facility] ([facility] Body temperature 36.44 Cherrie 36.44 Cherrie [facility] ([facility]) Respiratory rate 16 /min 16 /min [facility] ([facility]) Body mass index (BMI) [Ratio] 34.59 kg/m2 Overweight 34.59 kg/m2 [facility] ([facility]) Body weight 245.0 [lb_av] 245.0 [lb_av] eCW1 ([facility]) Body height 70 [in_i] 70 [in_i] eCW1 ([facility]) Body mass index (BMI) [Ratio] 35.15 kg/m2 35.15 kg/m2 W1 ([facility]) Heart rate 56 /min 56 /min eCW1 ([facility]) Respiratory rate 18 /min 18 /min eCW1 ([facility]) Body temperature 97.5 [degF] 97.5 [degF] eCW1 ( [facility]) Systolic blood pressure 133 mm[Hg] 133 mm[Hg] e CW1 ([facility]) Diastolic blood pressure 74 mm[Hg] 74 mm[Hg] eCW1 ([facility]) Body weight 249 [lb_av] 249 [lb_av] eCW1 ([facility]) Body height 70 [in_i] 70 [in_i] eCW1 ([facility]) Body mass index (BMI) [Ratio] 35.72 kg/m2 35.72 kg/m2 eCW1 ([facility]) Heart rate 61 /min 61 /min eCW1 ([facility]) Respiratory rate 18 /min 18 /min eCW1 ([facility]) Body temperature 97.9 [degF] 97.9 [degF] eCW1 ( [facility]) Systolic blood pressure 133 mm[Hg] 133 mm[Hg] e CW1 ([facility]) Diastolic blood pressure 60 mm[Hg] 60 mm[Hg] eCW1 ([facility]) Body height 180.34 cm 180.34 cm Next[facility] ([facility] Body weight 111.130 kg 111.130 kg NextGen ([facility]) Systolic blood pressure 122 mm[Hg] 122 mm[Hg] N extGen ([facility]) Diastolic blood pressure 68 mm[Hg] 68 mm[Hg] Next[facility] ([facility]) Body mass index (BMI) [Ratio] 34.17 kg/m2 Overweight 34.17 kg/m2 Next[facility] ([facility]) Body height 70 [in_i] 70 [in_i] [facility] 5'10" Body weight 249.00 [lb_av] 249.00 [lb_av] MEDEN T ([facility], ) Body mass index (BMI) [Ratio] 35.7 kg/m2 35.7 k g/m2 [facility] ([facility], ) [place] body weight 166 [lb_av] 166 [lb_av] MEDEN T ([facility], ) Body weight 112.946 kg 112.946 kg [facility] ([facility], ) Body surface area Derived from formula 2.29 m2 2.29 m2 [facility] ([facility], ) Systolic blood pressure 125 mm[Hg] 125 mm[Hg] G REENWAY ([facility]) Diastolic blood pressure 55 mm[Hg] 55 mm[Hg] AMHNAZ ([facility]) Heart rate 59 /min 59 /min MAHNAZ [facility] Body weight 246 [lb_av] 246 [lb_av] eCW1 ([facility]) Body height 70 [in_i] 70 [in_i] eCW1 ([facility]) Body mass index (BMI) [Ratio] 35.29 kg/m2 35.29 kg/m2 eCW1 ([facility]) Systolic blood pressure 122 mm[Hg] 122 mm[Hg] e CW1 ([facility]) Diastolic blood pressure 68 mm[Hg] 68 mm[Hg] eCW1 ([facility]) Body height 70 [in_i] 70 [in_i] MEDENT ([facility]) 5'10" Body weight 249.00 [lb_av] 249.00 [lb_av] MEDEN T ([facility]) Body mass index (BMI) [Ratio] 35.7 kg/m2 35.7 k g/m2 [facility] ([facility]) [place] body weight 166 [lb_av] 166 [lb_av] MEDEN T ([facility]) Body weight 112.946 kg 112.946 kg [facility] ([facility]) Body surface area Derived from formula 2.29 m2 2.29 m2 [facility] ([facility]) Body height 70 [in_i] 70 [in_i] MEDENT ([facility]) 5'10" Body weight 249.00 [lb_av] 249.00 [lb_av] MEDEN T ([facility]) Body mass index (BMI) [Ratio] 35.7 kg/m2 35.7 k g/m2 [facility] ([facility]) [place] body weight 166 [lb_av] 166 [lb_av] MEDEN T ([facility]) Body weight 112.946 kg 112.946 [facility] Body surface area Derived from formula 2.29 m2 2.29 m2 [facility] ([facility]) Systolic blood pressure 124 mm[Hg] 124 mm[Hg] G REENWAY ([facility]) Diastolic blood pressure 70 mm[Hg] 70 mm[Hg] MAHNAZ ([facility]) Heart rate 56 /min 56 /min MAHNAZ ([facility]) Heart rate rhythm 1 1 GREENWA Y ([facility]) Respiratory rate 20 /min 20 /min MAHNAZ ([facility]) Body temperature 97.2 [degF] 97.2 [degF] GREENW AY ([facility]) Body weight 243 [lb_av] 243 [lb_av] MAHNAZ ([facility]) PhenX - pain, abdominal - type and intensity protocol 5 5 MAHNAZ ([facility]) Oxygen saturation in Arterial blood by Pulse oximetry 97 % 97 % MAHNAZ ([facility]) Inhaled oxygen flow rate 0 L/min 0 L/min MAHNAZ ([facility]) Inhaled oxygen concentration 21 % 21 % MAHNAZ ([facility]) Body height 70 [in_i] 70 [in_i] [facility] ([facility]) 5'10" Body weight 249.00 [lb_av] 249.00 [lb_av] [facility] Body mass index (BMI) [Ratio] 35.7 kg/m2 35.7 k g/m2 [facility] ([facility]) [place] body weight 166 [lb_av] 166 [lb_av] [facility] Body weight 112.946 kg 112.946 kg [facility] ([facility]) Body surface area Derived from formula 2.29 m2 2.29 m2 [facility] ([facility]) Body weight 249.00 [lb_av] 249.00 [lb_av] MEDEN T ([facility]) Body weight 112.946 kg 112.946 kg [facility] ([facility]) Body height 180.34 cm 180.34 cm [facility] ([facility]) Body weight 134.263 kg 134.263 kg [facility] ([facility]) Systolic blood pressure 130 mm[Hg] 130 mm[Hg] N extGen ([facility]) Diastolic blood pressure 68 mm[Hg] 68 mm[Hg] [facility] ([facility]) Body mass index (BMI) [Ratio] 41.28 kg/m2 Overweight 41.28 kg/m2 [facility] ([facility]) Body height 70 [in_i] 70 [in_i] [facility] ([facility]) 5'10" Body weight 245.00 [lb_av] 245.00 [lb_av] MEDEN T ([facility]) Body mass index (BMI) [Ratio] 35.1 kg/m2 35.1 k g/m2 [facility] ([facility]) [place] body weight 166 [lb_av] 166 [lb_av] MEDEN T ([facility]) Body weight 111.132 kg 111.132 kg [facility] ([facility]) Body surface area Derived from formula 2.28 m2 2.28 m2 [facility] ([facility]) Diastolic blood pressure 78 mm[Hg] 78 mm[Hg] [facility] ([facility]) Systolic blood pressure 124 mm[Hg] 124 mm[Hg] [facility] Heart rate 78 /min 78 /min [facility] ([facility]) Oxygen saturation in Arterial blood by Pulse oximetry 97 % 97 % [facility] ([facility]) Room Air Body height 70 [in_i] 70 [in_i] [facility] ([facility]) 5'10" Body mass index (BMI) [Ratio] 35.4 kg/m2 35.4 k g/m2 [facility] ([facility]) Body weight 247.00 [lb_av] 247.00 [lb_av] MEDEN T ([facility]) [place] body weight 166 [lb_av] 166 [lb_av] MEDEN T ([facility]) Body surface area Derived from formula 2.28 m2 2.28 m2 [facility] ([facility]) Body weight 112.039 kg 112.039 kg [facility] ([facility]) Body weight 251 [lb_av] 251 [lb_av] eCW1 ([facility]) Body mass index (BMI) [Ratio] 36.01 kg/m2 36.01 kg/m2 eCW1 ([facility]) Body height 70 [in_i] 70 [in_i] eCW1 ([facility]) Heart rate 56 /min 56 /min eCW1 ([facility]) Systolic blood pressure 115 mm[Hg] 115 mm[Hg] e CW1 ([facility]) Respiratory rate 18 /min 18 /min eCW1 ([facility]) Body temperature 97.1 [degF] 97.1 [degF] eCW1 ( [facility]) Diastolic blood pressure 62 mm[Hg] 62 mm[Hg] W1 ([facility]) Systolic blood pressure 122 mm[Hg] 122 mm[Hg] [facility] Diastolic blood pressure 70 mm[Hg] 70 mm[Hg] [facility] Heart rate 61 /min 61 /min [facility] Body temperature 36.33 Cherrie 36.33 Cherrie [facility] Body height 177.8 cm 177.8 cm [facility] Body weight 112.946 kg 112.946 kg [facility] Body mass index (BMI) [Ratio] 35.73 kg/m2 35.73 kg/m2 [facility] Oxygen saturation in Arterial blood by Pulse oximetry 98 % 98 % [facility] Heart rate rhythm 1 1 GREENWA Y ([facility]) Respiratory rate 18 /min 18 /min MAHNAZ ([facility]) Body temperature 96.9 [degF] 96.9 [degF] GREENW AY ([facility]) Body weight 195 [lb_av] 195 [lb_av] MAHNAZ ([facility]) PhenX - pain, abdominal - type and intensity protocol 0 0 MAHNAZ ([facility]) Systolic blood pressure 118 mm[Hg] 118 mm[Hg] G REENWAY ([facility]) Diastolic blood pressure 60 mm[Hg] 60 mm[Hg] MAHNAZ ([facility]) Oxygen saturation in Arterial blood by Pulse oximetry 98 % 98 % [place] ([facility]) Heart rate 65 /min 65 /min MAHNAZ ([facility]) Inhaled oxygen flow rate 0 L/min 0 L/min [place] ([facility]) Inhaled oxygen concentration 21 % 21 % [place] ([facility]) Body weight 243.00 [lb_av] 243.00 [lb_av] MEDEN T ([facility]) Body mass index (BMI) [Ratio] 34.9 kg/m2 34.9 k g/m2 [facility] ([facility]) [place] body weight 166 [lb_av] 166 [lb_av] MEDEN T ([facility]) Body weight 110.225 kg 110.225 kg [facility] ([facility]) Body height 70 [in_i] 70 [in_i] [facility] ([facility]) 5'10" Body temperature 98.6 [degF] 98.6 [facility]degF] [facility] Body weight 239.00 [lb_av] 239.00 [lb_av] MEDEN T ([facility]) Body height 70 [in_i] 70 [in_i] [facility] 5'10" Body mass index (BMI) [Ratio] 34.3 kg/m2 34.3 k g/m2 [facility] ([facility]) Systolic blood pressure 139 mm[Hg] 139 mm[facility]Hg] [facility] Diastolic blood pressure 80 mm[Hg] 80 mm[Hg] [facility] Heart rate 67 /min 67 /min [facility] ([facility], [facility]) Respiratory rate 20 /min 20 /min [facility] ( [facility]) Oxygen saturation in Arterial blood by Pulse oximetry 99 % 99 % [facility] ([facility]) Patient Treatment Plan of Care Planned Activity Planned Date Details Description Data Source (s) Citalopram 10 MG Oral Tablet 04/18/2021 12:00:00 AM EDT MAHNAZ ([facility]) infliximab 100 MG Injection [Remicade] 04/01/2021 12:00:00 AM EDT [facility] ([facility]) Citalopram 10 MG Oral Tablet 03/31/2021 12:00:00 AM EDT MAHNAZ ([facility]) infliximab 100 MG Injection [Remicade] 12/05/2020 12:00:00 AM EDT [facility] ([facility]) infliximab 100 MG Injection [Remicade] 12/05/2020 12:00:00 AM EDT [facility] ([facility]) gabapentin 300 MG Oral Capsule 11/19/2020 12:00:00 AM EDT [facility] ([facility]) ciclopirox 80 MG/ML Topical Solution 10/28/2020 12:00:00 AM EST eCW1 ([facility]) tizanidine 2 MG Oral Tablet 09/10/2020 12:00:00 AM EST [facility] ([facility]) tizanidine 2 MG Oral Tablet 05/16/2020 12:00:00 AM EDT [facility] ([facility]) POLYETHYLENE GLYCOL 3350 142 MG/ML Oral Solution 09/18/2019 12:00:0 0 AM EST MAHNAZ ([facility]) infliximab 100 MG Injection [Remicade] 09/03/2017 12:00:00 AM EST [facility] ([facility]) gabapentin 300 mg capsule Ne xt[facility] ([facility]) Metformin hydrochloride 500 MG Oral Tablet [facility] ([facility]) Ondansetron 8 MG Oral Tablet [facility] ([facility])
--- NOTE | 2021-08-16 14:14 | REP ---
INDICATION: RLQ pain, diarrhea. COMPARISON: None. TECHNIQUE: Imaging protocol: Computed tomography of the abdomen and pelvis without and with IV contrast. Contiguous 3 mm thick axial projection images were obtained through the abdomen and pelvis. 2D sagittal and coronal reconstructions were performed. Radiation optimization: All CT scans at this facility use at least one of these dose optimization techniques: automated exposure control; mA and/or kV adjustment per patient size (includes targeted exams where dose is matched to clinical indication); or iterative reconstruction. Contrast material: ISOVUE 370; Contrast volume: 100 ml; Contrast route: INTRAVENOUS (IV). FINDINGS: Heart and lung bases: There is minimal pleural-parenchymal scarring in the basilar segments of both lower lobes. There are no pleural effusions. The heart size is normal. There is no pericardial effusion. There is calcific vascular disease of the thoracic aorta. Liver: Fatty infiltration. Gallbladder: Normal. Spleen: Normal. Pancreas: Normal. Adrenal glands: Normal. Kidneys/bladder: There are 2 small cortical cysts on the right kidney. Left kidney is unremarkable. The urinary bladder has a normal unenhanced appearance. Pelvic structures: The prostate gland is normal in size. The seminal vesicles are unremarkable. There is no free fluid the pelvis. There is no pelvic or inguinal lymphadenopathy. GI tract: There is a small hiatal hernia. There is moderate sigmoid diverticulosis. There are scattered diverticuli throughout the remainder of the colon. There is no evidence of acute inflammation. There is a normal appendix demonstrated. Abdominal wall and mesentery: There are bilateral inguinal hernias, containing normal fat, measuring 3.6 cm in diameter on the right and 2.9 cm in diameter on the left. There is a 2.8 cm in diameter umbilical hernia containing normal fat. There are few reactive central mesenteric lymph nodes. There is no retroperitoneal lymphadenopathy. Abdominal aorta and vascular structures: There is minimal calcific vascular disease of the abdominal aorta. The inferior vena cava and portal venous system are normal. Bony structures: There is moderate multilevel degenerative disc disease of the lower thoracic and lumbar spine with mild dextroscoliosis. The SI joints and hips are unremarkable. IMPRESSION: 1. Umbilical and bilateral inguinal hernias containing normal fat. 2. Colonic diverticulosis without diverticulitis. 3. There is a small hiatal hernia. 4. 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 5. Fatty liver infiltration. z6. Other findings as noted. <Electronically signed by Jairo Aparicio > 08/16/21 [id number]
[2021-08-16 14:45] VITALS: BP 140/79
== END 2021-08-16 15:06 | disposition home or self-care (01) ==
LOC: M ED 11:36
DX: R19.7 Diarrhea, unspecified (principal); E11.9 Type 2 diabetes mellitus without complications; I10 Essential (primary) hypertension; E78.5 Hyperlipidemia, unspecified; K21.9 Gastro-esophageal reflux disease without esophagitis; M54.9 Dorsalgia, unspecified; M19.90 Unspecified osteoarthritis, unspecified site; Z85.810 Personal history of malignant neoplasm of tongue; K42.9 Umbilical hernia without obstruction or gangrene; K40.90 Unilateral inguinal hernia, without obstruction or gangrene, not specified as recurrent; K57.30 Diverticulosis of large intestine without perforation or abscess without bleeding; K76.0 Fatty (change of) liver, not elsewhere classified; M51.36 Other intervertebral disc degeneration, lumbar region; M51.34 Other intervertebral disc degeneration, thoracic region; Z79.4 Long term (current) use of insulin; Z79.82 Long term (current) use of aspirin; Z79.899 Other long term (current) 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; Z88.8 Allergy status to other drugs, medicaments and biological substances
CPT/HCPCS: 74177; 80048; 80076; 83690; 85025; 93041; 99285; Q9967

== ENCOUNTER → 2021-10-24 | Outpatient (CLI) | payer MEDICARE, BC, OTHER ==
[~2021-10-24] MED LIST changes: +INFL10VL IV; +LOPE-39 PO
== END ==
LOC: M RAD 11:29
PROVIDERS: ATTEND Family Medicine
DX: E04.1 Nontoxic single thyroid nodule (principal)

== ENCOUNTER 2022-01-20 10:27 | Emergency (ER) | payer MEDICARE, BC, OTHER ==
[~2022-01-20] VITALS: Ht 177.8 cm; Wt 112.1 kg
[2022-01-20] MEDS ORDERED: NS 1,000 ML IV ONE (14:15)
[2022-01-20] MEDS ORDERED: KETOROLAC 30 MG/ML 1ML VIAL IV ONE (14:30)
[2022-01-20 15:03] LABS: BASO % 0.3 % (0.0-1.0); EOS # 0.1 10^3/uL (0.0-0.5); EOS % 0.5 % (0.0-3.0); HEMATOCRIT 47.4 % (42.0-52.0); HEMOGLOBIN 15.4 g/dl (13.5-17.5); LYMPH # 1.9 10^3/uL (1.5-5.0); LYMPH % 18.4 % (24.0-44.0); MEAN CORPUSCULAR HEMOGLOBIN 29.2 pg (27.0-33.0); MEAN CORPUSCULAR HGB CONC 32.5 g/dl (32.0-36.5); MEAN CORPUSCULAR VOLUME 89.8 fl (80.0-96.0); MONO # 1.3 10^3/uL (0.0-0.8); MONO % 12.9 % (2.0-8.0); NEUTROPHILS % 67.5 % (36.0-66.0); PLATELET COUNT, AUTOMATED 203 10^3/uL (150-450); RED BLOOD COUNT 5.28 10^6/uL (4.30-6.10); WHITE BLOOD COUNT 10.3 10^3/uL (4.0-10.0)
[2022-01-20 15:26] LABS: ERYTHROCYTE SEDIMENTATION RATE 9 mm/hr (0-20)
[2022-01-20] MEDS ORDERED: REGL10TA6 PO (16:07)
[2022-01-20 16:29] VITALS: BP 131/69
== END 2022-01-20 16:32 | disposition home or self-care (01) ==
LOC: M ED 10:27
DX: R50.9 Fever, unspecified (principal); Z86.16 Personal history of COVID-19; M77.31 Calcaneal spur, right foot; E11.9 Type 2 diabetes mellitus without complications; I10 Essential (primary) hypertension; Z85.810 Personal history of malignant neoplasm of tongue; Z88.8 Allergy status to other drugs, medicaments and biological substances; Z79.899 Other long term (current) 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; Z79.82 Long term (current) use of aspirin; Z79.84 Long term (current) use of oral hypoglycemic drugs
CPT/HCPCS: 71046; 73610; 80047; 83605; 85025; 85652; 86140; 87040; 87400; 96361; 96374; 99284; J1885

== ENCOUNTER → 2022-02-04 | Outpatient (CLI) | payer MEDICARE, OTHER ==
[~2022-02-04] MED LIST changes: +REGL10TA6 PO
== END ==
LOC: M PAIN 10:30
PROVIDERS: ATTEND Anesthesiology
DX: M47.816 Spondylosis without myelopathy or radiculopathy, lumbar region (principal); E78.5 Hyperlipidemia, unspecified; I10 Essential (primary) hypertension; E11.9 Type 2 diabetes mellitus without complications; K21.9 Gastro-esophageal reflux disease without esophagitis; M45.3 Ankylosing spondylitis of cervicothoracic region; Z79.82 Long term (current) use of aspirin; Z79.4 Long term (current) use of insulin; Z79.899 Other long term (current) 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; Z88.8 Allergy status to other drugs, medicaments and biological substances

== ENCOUNTER → 2022-03-24 | Outpatient (CLI) | payer MEDICARE, BC, OTHER | LOC: M LABSMTC 10:08 | PROVIDERS: ATTEND Anesthesiology | DX: Z11.52 Encounter for screening for COVID-19 (principal) ==

== ENCOUNTER 2022-03-27 07:21 | Day surgery (SDC) | payer MEDICARE, BC, OTHER ==
[~2022-03-27] VITALS: Ht 177.8 cm; Wt 110.7 kg
[~2022-03-27 07:21] MED LIST changes: +NS 1,000 ML IV ONE; +propofoL 500 MG/50 ML VIAL As Ordered ONE
[2022-03-27] MEDS ORDERED: fentaNYL 100 MCG/2 ML INJECTION As Ordered ONE (08:16)
[2022-03-27] MEDS ORDERED: LIDOCAINE 2% 100MG/5ML SDV (FOR ANES.) As Ordered ONE (08:17)
[2022-03-27 09:25] VITALS: BP 159/84
[2022-03-27] MEDS ORDERED: propofoL 200 MG/20 ML VIAL As Ordered ONE (09:36)
== END 2022-03-27 09:53 | disposition home or self-care (01) ==
LOC: M OPP 07:21
PROVIDERS: ATTEND Internal Medicine Gastroenterology
DX: Z12.11 Encounter for screening for malignant neoplasm of colon (principal); D12.6 Benign neoplasm of colon, unspecified; K57.30 Diverticulosis of large intestine without perforation or abscess without bleeding; K64.8 Other hemorrhoids; K21.00 Gastro-esophageal reflux disease with esophagitis, without bleeding; K29.70 Gastritis, unspecified, without bleeding; C02.9 Malignant neoplasm of tongue, unspecified; E11.9 Type 2 diabetes mellitus without complications; G47.30 Sleep apnea, unspecified; I10 Essential (primary) hypertension; M13.80 Other specified arthritis, unspecified site; E78.00 Pure hypercholesterolemia, unspecified; Z79.02 Long term (current) use of antithrombotics/antiplatelets; Z79.1 Long term (current) use of non-steroidal anti-inflammatories (NSAID); Z79.4 Long term (current) use of insulin; Z79.51 Long term (current) use of inhaled steroids; Z79.82 Long term (current) use of aspirin; Z79.899 Other long term (current) 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
CPT/HCPCS: 43239; 45385; 88305; J3010

== ENCOUNTER → 2022-05-24 | Outpatient (CLI) | payer MEDICARE, BC, OTHER ==
[~2022-05-24] MED LIST changes: -NS 1,000 ML IV ONE; -propofoL 500 MG/50 ML VIAL As Ordered ONE
== END ==
LOC: M LABSMTC 10:41
PROVIDERS: ATTEND Anesthesiology
DX: Z11.52 Encounter for screening for COVID-19 (principal)

== ENCOUNTER → 2022-05-28 | Outpatient (CLI) | payer MEDICARE, OTHER ==
[~2022-05-28] MED LIST changes: +BUPIVACAINE HCL 0.25% 30ML VIAL As Ordered ONE; +ISOVUE-M 300 61% 15ML VIAL As Ordered ONE; +LIDOCAINE 1% SDV 30ML VIAL As Ordered ONE
== END ==
LOC: M PAIN 10:00
PROVIDERS: ATTEND Anesthesiology
DX: M47.816 Spondylosis without myelopathy or radiculopathy, lumbar region (principal); M47.817 Spondylosis without myelopathy or radiculopathy, lumbosacral region; E78.5 Hyperlipidemia, unspecified; I10 Essential (primary) hypertension; E11.9 Type 2 diabetes mellitus without complications; K21.9 Gastro-esophageal reflux disease without esophagitis; K58.9 Irritable bowel syndrome, unspecified; Z85.810 Personal history of malignant neoplasm of tongue; M45.9 Ankylosing spondylitis of unspecified sites in spine; Z79.82 Long term (current) use of aspirin; Z79.4 Long term (current) use of insulin; Z79.899 Other long term (current) 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; Z88.8 Allergy status to other drugs, medicaments and biological substances
CPT/HCPCS: 64493; 64494; Q9967

== ENCOUNTER → 2022-06-02 | Outpatient (CLI) | payer MEDICARE, OTHER ==
[~2022-06-02] MED LIST changes: -BUPIVACAINE HCL 0.25% 30ML VIAL As Ordered ONE; -ISOVUE-M 300 61% 15ML VIAL As Ordered ONE; -LIDOCAINE 1% SDV 30ML VIAL As Ordered ONE
== END ==
LOC: M PAIN 09:00
PROVIDERS: ATTEND Anesthesiology
DX: M47.816 Spondylosis without myelopathy or radiculopathy, lumbar region (principal); E78.5 Hyperlipidemia, unspecified; I10 Essential (primary) hypertension; E11.9 Type 2 diabetes mellitus without complications; K21.9 Gastro-esophageal reflux disease without esophagitis; K58.9 Irritable bowel syndrome, unspecified; Z85.810 Personal history of malignant neoplasm of tongue; M45.9 Ankylosing spondylitis of unspecified sites in spine; Z79.82 Long term (current) use of aspirin; Z79.4 Long term (current) use of insulin; Z79.899 Other long term (current) 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; Z88.8 Allergy status to other drugs, medicaments and biological substances

== ENCOUNTER → 2022-07-29 | Outpatient (CLI) | payer MEDICARE, OTHER | LOC: M LABSMTC 11:36 | PROVIDERS: ATTEND Anesthesiology | DX: Z01.812 Encounter for preprocedural laboratory examination (principal); Z20.822 Contact with and (suspected) exposure to COVID-19 ==

== ENCOUNTER → 2022-08-04 | Outpatient (CLI) | payer MEDICARE, OTHER ==
[~2022-08-04] MED LIST changes: +BUPIVACAINE HCL 0.25% 30ML VIAL As Ordered ONE; +LIDOCAINE 1% SDV 30ML VIAL As Ordered ONE; +diazePAM 5MG TABLET As Ordered ONE; +oxyCODONE 5MG TAB As Ordered ONE
== END ==
LOC: M PAIN 14:00
PROVIDERS: ATTEND Anesthesiology
DX: M47.816 Spondylosis without myelopathy or radiculopathy, lumbar region (principal); E78.5 Hyperlipidemia, unspecified; I10 Essential (primary) hypertension; E11.9 Type 2 diabetes mellitus without complications; K21.9 Gastro-esophageal reflux disease without esophagitis; M19.90 Unspecified osteoarthritis, unspecified site; K58.9 Irritable bowel syndrome, unspecified; M45.9 Ankylosing spondylitis of unspecified sites in spine; Z85.810 Personal history of malignant neoplasm of tongue; Z79.82 Long term (current) use of aspirin; Z79.4 Long term (current) use of insulin; Z79.899 Other long term (current) 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; Z88.8 Allergy status to other drugs, medicaments and biological substances
CPT/HCPCS: 64635; 64636; J1100

== ENCOUNTER → 2022-10-14 | Outpatient (CLI) | payer MEDICARE, OTHER ==
[~2022-10-14] MED LIST changes: -BUPIVACAINE HCL 0.25% 30ML VIAL As Ordered ONE; -LIDOCAINE 1% SDV 30ML VIAL As Ordered ONE; -diazePAM 5MG TABLET As Ordered ONE; -oxyCODONE 5MG TAB As Ordered ONE
== END ==
LOC: M PAIN 10:45
PROVIDERS: ATTEND Anesthesiology
DX: M47.816 Spondylosis without myelopathy or radiculopathy, lumbar region (principal); M46.96 Unspecified inflammatory spondylopathy, lumbar region; G89.29 Other chronic pain; E11.9 Type 2 diabetes mellitus without complications; I10 Essential (primary) hypertension; K21.9 Gastro-esophageal reflux disease without esophagitis; Z88.8 Allergy status to other drugs, medicaments and biological substances; Z79.4 Long term (current) use of insulin; Z79.82 Long term (current) use of aspirin; Z79.84 Long term (current) use of oral hypoglycemic drugs; Z79.899 Other long term (current) 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

== ENCOUNTER → 2023-01-13 | Outpatient (CLI) | payer MEDICARE, OTHER ==
[~2023-01-13] MED LIST changes: +FLUT50SP17; -FLUTISP
== END ==
LOC: M PAIN 10:00
PROVIDERS: ATTEND Anesthesiology
DX: M47.816 Spondylosis without myelopathy or radiculopathy, lumbar region (principal); G89.29 Other chronic pain; E78.5 Hyperlipidemia, unspecified; I10 Essential (primary) hypertension; E11.9 Type 2 diabetes mellitus without complications; K21.9 Gastro-esophageal reflux disease without esophagitis; M19.90 Unspecified osteoarthritis, unspecified site; K58.9 Irritable bowel syndrome, unspecified; Z79.82 Long term (current) use of aspirin; Z79.4 Long term (current) use of insulin; Z79.899 Other long term (current) 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; Z88.8 Allergy status to other drugs, medicaments and biological substances

== ENCOUNTER → 2023-03-01 | Outpatient (CLI) | payer MEDICARE, OTHER ==
[~2023-03-01] MED LIST changes: +ISOVUE-M 300 61% 15ML VIAL As Ordered ONE; +LIDOCAINE 1% SDV 30ML VIAL As Ordered ONE
== END ==
LOC: M PAIN 12:30
PROVIDERS: ATTEND Anesthesiology
DX: M47.817 Spondylosis without myelopathy or radiculopathy, lumbosacral region (principal); G89.29 Other chronic pain; E11.9 Type 2 diabetes mellitus without complications; G47.30 Sleep apnea, unspecified; I10 Essential (primary) hypertension; K21.9 Gastro-esophageal reflux disease without esophagitis; Z88.8 Allergy status to other drugs, medicaments and biological substances; Z79.4 Long term (current) use of insulin; Z79.82 Long term (current) use of aspirin; Z79.84 Long term (current) use of oral hypoglycemic drugs; Z79.899 Other long term (current) 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
CPT/HCPCS: 64493; 64494; Q9967

== ENCOUNTER → 2023-03-08 | Outpatient (CLI) | payer MEDICARE, OTHER ==
[~2023-03-08] MED LIST changes: -ISOVUE-M 300 61% 15ML VIAL As Ordered ONE; -LIDOCAINE 1% SDV 30ML VIAL As Ordered ONE
== END ==
LOC: M PAIN 10:00
PROVIDERS: ATTEND Anesthesiology
DX: M47.817 Spondylosis without myelopathy or radiculopathy, lumbosacral region (principal); G89.29 Other chronic pain; E11.9 Type 2 diabetes mellitus without complications; I10 Essential (primary) hypertension; K21.9 Gastro-esophageal reflux disease without esophagitis; Z88.8 Allergy status to other drugs, medicaments and biological substances; Z79.4 Long term (current) use of insulin; Z79.82 Long term (current) use of aspirin; Z79.84 Long term (current) use of oral hypoglycemic drugs; Z79.899 Other long term (current) 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

== ENCOUNTER → 2023-03-12 | Outpatient (CLI) | payer MEDICARE, OTHER | LOC: M PLARAD 12:44 | PROVIDERS: ATTEND Anesthesiology | DX: M47.817 Spondylosis without myelopathy or radiculopathy, lumbosacral region (principal); M54.50 Low back pain, unspecified ==

== ENCOUNTER 2023-04-06 09:56 | Day surgery (SDC) | payer MEDICARE, BC, OTHER ==
[~2023-04-06] VITALS: Ht 177.8 cm; Wt 107.4 kg
[~2023-04-06 09:56] MED LIST changes: +CELE10TA PO; +LIDOCAINE W/EPINEPHRINE 1% 20ML VIAL As Ordered ONE; +METHYLENE BLUE 0.5% (5MG/ML) 10 ML AMP (PROVAYBLUE) As Ordered ONE; +OXYMETAZOLINE 0.05% NASAL SPRAY (AFRIN) As Ordered ONE; +ROSU20TA61 PO; +SEMA2PEN SQ; +TIZA2CAP PO
[2023-04-06] MEDS ORDERED: LR 1,000 ML IV SCH ×2 (10:00→14:25)
[2023-04-06 11:03] LABS: CALCIUM LEVEL 9.6 MG/DL (8.3-10.6); CREATININE FOR GFR 1.47 MG/DL (0.70-1.30); GLOMERULAR FILTRATION RATE 49.7 (>42); POTASSIUM SERUM 5.1 MMOL/L (3.5-5.1)
[2023-04-06] MEDS ORDERED: ONDANSETRON 4MG 2ML VIAL As Ordered ONE (11:20)
[2023-04-06] MEDS ORDERED: SUGAMMADEX SODIUM 500 MG/5 ML VIAL (BRIDION) As Ordered ONE (11:20)
[2023-04-06] MEDS ORDERED: ROCURONIUM BROMIDE 50MG/5ML VIAL As Ordered ONE ×2 (11:20→13:24)
[2023-04-06] MEDS ORDERED: propofoL 200 MG/20 ML VIAL As Ordered ONE (11:20)
[2023-04-06] MEDS ORDERED: LIDOCAINE 2% 100MG/5ML SDV (FOR ANES.) As Ordered ONE (11:20)
[2023-04-06] MEDS ORDERED: MIDAZOLAM INJ 2MG/2ML VIAL As Ordered ONE (11:28)
[2023-04-06] MEDS ORDERED: fentaNYL 100 MCG/2 ML INJECTION As Ordered ONE (11:28)
[2023-04-06] MEDS ORDERED: ACETAMINOPHEN 1000MG 100ML IV BAG As Ordered ONE (13:02)
[2023-04-06] MEDS ORDERED: ePHEDrine SULFATE 25 MG/5 ML(5MG/ML) SYRINGE As Ordered ONE (13:06)
[2023-04-06] MEDS ORDERED: OXYMETAZOLINE 0.05% NASAL SPRAY (AFRIN) As Ordered ONE (13:15)
[2023-04-06] MEDS ORDERED: SILVER NITRATE APPLICATOR (1 = QTY 10) As Ordered ONE (13:53)
[2023-04-06] MEDS ORDERED: oxyCODONE 5MG TAB PO PRN (14:25)
[2023-04-06] MEDS ORDERED: fentaNYL 100 MCG/2 ML INJECTION IV PRN (14:25)
[2023-04-06] MEDS ORDERED: HYDROMORPHONE HCL 0.5 MG/ 0.5 ML SYRINGE IV PRN (14:25)
[2023-04-06] MEDS ORDERED: ONDANSETRON 4MG 2ML VIAL IV PRN (14:25)
[2023-04-06 15:27] VITALS: BP 169/87; TEMP 97.5; O2SAT 95
== END 2023-04-06 16:05 | disposition home or self-care (01) ==
LOC: M SDC 09:56
PROVIDERS: ATTEND Otolaryngology
DX: 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, including tongue (principal); E11.9 Type 2 diabetes mellitus without complications; G47.30 Sleep apnea, unspecified; Z79.84 Long term (current) use of oral hypoglycemic drugs; Z79.85 Long-term (current) use of injectable non-insulin antidiabetic drugs; Z79.899 Other long term (current) 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; Z85.810 Personal history of malignant neoplasm of tongue; Z88.8 Allergy status to other drugs, medicaments and biological substances
CPT/HCPCS: 31535; 36415; 80048; 88305; 93005; J0131; J1100; J2250; J2405; J3010; Q9968

== ENCOUNTER → 2023-04-16 | Outpatient (CLI) | payer MEDICARE, OTHER ==
[~2023-04-16] MED LIST changes: -LIDOCAINE W/EPINEPHRINE 1% 20ML VIAL As Ordered ONE; -METHYLENE BLUE 0.5% (5MG/ML) 10 ML AMP (PROVAYBLUE) As Ordered ONE; -OXYMETAZOLINE 0.05% NASAL SPRAY (AFRIN) As Ordered ONE
== END ==
LOC: M PAIN 10:00
PROVIDERS: ATTEND Nurse Practitioner Family
DX: M47.816 Spondylosis without myelopathy or radiculopathy, lumbar region (principal); M47.817 Spondylosis without myelopathy or radiculopathy, lumbosacral region; G89.29 Other chronic pain; E78.5 Hyperlipidemia, unspecified; I10 Essential (primary) hypertension; E11.9 Type 2 diabetes mellitus without complications; K21.9 Gastro-esophageal reflux disease without esophagitis; M19.90 Unspecified osteoarthritis, unspecified site; K58.9 Irritable bowel syndrome, unspecified; Z79.82 Long term (current) use of aspirin; Z79.4 Long term (current) use of insulin; Z79.899 Other long term (current) 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; Z88.8 Allergy status to other drugs, medicaments and biological substances

== ENCOUNTER → 2024-03-30 | Outpatient (REF) | payer MEDICARE, OTHER, BC ==
[~2024-03-30] MED LIST changes: -FLUT50SP17; +FLUTISP
[2024-03-30 18:46] LABS: CREATININE FOR GFR 1.55 MG/DL (0.70-1.30); GLOMERULAR FILTRATION RATE 46.6 (>42)
== END ==
LOC: M LABDRWAD 17:00
PROVIDERS: ATTEND Nurse Practitioner Adult Health
DX: M54.50 Low back pain, unspecified (principal)

== ENCOUNTER → 2024-08-14 | Outpatient (CLI) | payer MEDICARE, OTHER, BC ==
[~2024-08-14] MED LIST changes: +GABA-1172 PO; -GABA-282 PO; -ROSU20TA61 PO; +ROSU20TA86 PO
== END ==
LOC: M RAD 11:30
PROVIDERS: ATTEND Family Medicine
DX: R07.9 Chest pain, unspecified (principal)

== ENCOUNTER 2024-11-19 11:49 | Inpatient (IN) | payer MEDICARE, OTHER, BC ==
[~2024-11-19] VITALS: Ht 177.8 cm; Wt 104.7 kg
[2024-11-19] VITALS (20 sets, daily range): BP systolic 135–160; BP diastolic 65–87; TEMP 97–98.6; O2SAT 91–98
[~2024-11-19 11:49] MED LIST changes: +LIDOCAINE 5% (LIDODERM) PATCH TD SCH
[2024-11-19] MEDS ORDERED: ISOVUE-370 76% 100ML VIAL As Ordered ONE (11:57)
[2024-11-19 12:18] LABS: BASO % 0.3 % (0.0-1.0); EOS # 0.1 10^3/uL (0.0-0.5); HEMATOCRIT 43.8 % (42.0-52.0); HEMOGLOBIN 14.5 g/dl (13.5-17.5); LYMPH # 1.5 10^3/uL (1.5-5.0); LYMPH % 21.3 % (24.0-44.0); MEAN CORPUSCULAR HEMOGLOBIN 31.1 pg (27.0-33.0); MEAN CORPUSCULAR HGB CONC 33.1 g/dl (32.0-36.5); MONO # 0.7 10^3/uL (0.0-0.8); MONO % 9.1 % (2.0-8.0); NEUTROPHILS # 4.8 10^3/uL (1.5-8.5); NEUTROPHILS % 66.9 % (36.0-66.0); PLATELET COUNT, AUTOMATED 194 10^3/uL (150-450); RED BLOOD COUNT 4.66 10^6/uL (4.30-6.10); WHITE BLOOD COUNT 7.1 10^3/uL (4.0-10.0)
[2024-11-19 12:29] LABS: INR 0.94; PARTIAL THROMBOPLASTIN TIME 28.1 SECONDS (24.8-34.2); PROTHROMBIN TIME 12.9 SECONDS (12.5-14.5)
[2024-11-19 12:45] LABS: CALCIUM LEVEL 9.1 MG/DL (8.3-10.6); CREATININE FOR GFR 1.29 MG/DL (0.70-1.30); GLOMERULAR FILTRATION RATE 57.6 (>42)
[2024-11-19] MEDS: TENECTEPLASE 50 MG/10 ML VIAL IVP ONE (12:59)
[2024-11-19] MEDS: SODIUM CHLORIDE 0.9% INJ 10 ML SYR IV ONE ×2 (12:59→13:00)
[2024-11-19] MEDS: D5W/LR 1,000 ML IV SCH (16:22)
[2024-11-19] MEDS ORDERED: DEXTROSE 50% 50ML SYRINGE IV PRN (16:55)
[2024-11-19] MEDS ORDERED: GLUCAGON INJ 1MG VIAL SC PRN (16:55)
[2024-11-19] MEDS ORDERED: GLUCOSE 4 GM CHEW PO PRN (16:55)
[2024-11-19] MEDS: INSULIN LISPRO (NovoLOG) PER UNIT SC SCH (18:00)
[2024-11-19] MEDS ORDERED: ACET-683 PO (18:10)
[2024-11-19] MEDS ORDERED: METH2.5T48 PO (18:18)
[2024-11-19] MEDS ORDERED: FOLI1TAB11 PO (18:18)
[2024-11-19] MEDS ORDERED: HOME MED LIST COMPLETE! XX SCH (18:20)
[2024-11-19] MEDS: ROSUVASTATIN 10 MG TAB (CRESTOR) PO SCH (20:27)
[2024-11-19] MEDS: LIDOCAINE 5% (LIDODERM) PATCH TD SCH (20:27)
[2024-11-19] MEDS: LanTUS (INSULIN GLARGINE INJ) 1 UNITS/0.01 ML SC SCH (20:28)
[2024-11-20] VITALS (14 sets, daily range): BP systolic 104–167; BP diastolic 56–91; TEMP 97–98.7; O2SAT 93–97
[2024-11-20] MEDS: ACETAMINOPHEN *IV* 1,000 MG in IV 1 EA IV ONE ×2 (01:26→10:31)
[2024-11-20] MEDS: ONDANSETRON 4MG 2ML VIAL IV PRN (10:31)
[2024-11-20] MEDS: INSULIN LISPRO (NovoLOG) PER UNIT SC SCH ×2 (12:50→20:45)
[2024-11-20] MEDS: ASPIRIN 81MG ENTERIC TABLET PO SCH (18:53)
[2024-11-20] MEDS: CLOPIDOGREL 75 MG TAB PO SCH (18:53)
[2024-11-20] MEDS: PANTOPRAZOLE 40MG TAB (PROTONIX) PO ONE (20:45)
[2024-11-20] MEDS: ACETAMINOPHEN 325 MG TAB PO PRN (22:49)
[2024-11-21] VITALS: BP 144/61; TEMP 97.7; O2SAT 93
[2024-11-21 04:00] VITALS: BP 130/79; TEMP 98; O2SAT 92
[2024-11-21 04:56] LABS: HEMATOCRIT 42.3 % (42.0-52.0); HEMOGLOBIN 14.2 g/dl (13.5-17.5); MEAN CORPUSCULAR HEMOGLOBIN 30.7 pg (27.0-33.0); MEAN CORPUSCULAR HGB CONC 33.6 g/dl (32.0-36.5); MEAN CORPUSCULAR VOLUME 91.6 fl (80.0-96.0); PLATELET COUNT, AUTOMATED 175 10^3/uL (150-450); RED BLOOD COUNT 4.62 10^6/uL (4.30-6.10); WHITE BLOOD COUNT 7.5 10^3/uL (4.0-10.0)
[2024-11-21 05:32] LABS: ALBUMIN 3.7 G/DL (3.2-5.2); ALKALINE PHOSPHATASE 76 U/L (40-129); ALT/SGPT 24 U/L (7.0-40); AST/SGOT 21 U/L (<34); BILIRUBIN,TOTAL 0.7 MG/DL (0.3-1.2); BLOOD UREA NITROGEN 17 MG/DL (9-23); CARBON DIOXIDE LEVEL 26 MMOL/L (20-31); CHLORIDE LEVEL 102 MMOL/L (98-107); CHOLESTEROL LEVEL 101 MG/DL (<200); CHOLESTEROL RISK RATIO 3.12 (<5); CREATININE FOR GFR 1.14 MG/DL (0.70-1.30); GLOMERULAR FILTRATION RATE > 60.0 (>42); GLUCOSE, FASTING 104 MG/DL (74-106); HDL CHOLESTEROL 32.3 MG/DL (>40); LDL CHOLESTEROL 43.9 MG/DL (<100); NON-HDL-C 68.7 MG/DL; POTASSIUM SERUM 4.6 MMOL/L (3.5-5.1); SODIUM LEVEL 135 MMOL/L (136-145); TOTAL PROTEIN 7.3 G/DL (5.7-8.2); TRIGLYCERIDES LEVEL 124 MG/DL (<150)
[2024-11-21 05:34] LABS: THYROID STIMULATING HORMONE 2.211 uIU/ML (0.55-4.78)
[2024-11-21 05:48] LABS: HEMOGLOBIN A1c 6.4 % (4.0-6.0)
[2024-11-21] MEDS: KETOROLAC 30 MG/ML 1ML VIAL IV ONE (06:25)
[2024-11-21 08:00] VITALS: BP 139/71; TEMP 98.7; O2SAT 96
[2024-11-21] MEDS: PANTOPRAZOLE 40MG TAB (PROTONIX) PO SCH (08:44)
[2024-11-21] MEDS: ENOXAPARIN 40MG/0.4ML SYRINGE (J1650 PER 10MG) SC SCH (09:56)
[2024-11-21 12:00] VITALS: BP 138/70; TEMP 98.7; O2SAT 94
[2024-11-21 16:00] VITALS: BP 142/78; TEMP 98.4; O2SAT 94
[2024-11-21] MEDS ORDERED: ROSU40TA81 PO (16:03)
[2024-11-21] MEDS ORDERED: CLOP75TA2 PO (16:03)
[2024-11-21] MEDS ORDERED: ASPI81TAEC PO (16:03)
== END 2024-11-21 18:12 | disposition home or self-care (01) | DRG 63 ==
LOC: M ED 11:49 → M ED INP 13:27 → M ICU 15:33
PROVIDERS: ADMIT Internal Medicine Pulmonary Disease; ATTEND Internal Medicine Pulmonary Disease
PROC: 3E03317 Introduction of Other Thrombolytic into Peripheral Vein, Percutaneous Approach (ICD-10-PCS; principal; 2024-11-19)
PROC: B246ZZZ Ultrasonography of Right and Left Heart (ICD-10-PCS; 2024-11-19)
DX: I63.531 Cerebral infarction due to unspecified occlusion or stenosis of right posterior cerebral artery (principal); I63.512 Cerebral infarction due to unspecified occlusion or stenosis of left middle cerebral artery; E11.9 Type 2 diabetes mellitus without complications; I10 Essential (primary) hypertension; E78.5 Hyperlipidemia, unspecified; M19.90 Unspecified osteoarthritis, unspecified site; R29.810 Facial weakness; R47.81 Slurred speech; Z79.4 Long term (current) use of insulin; Z79.899 Other long term (current) 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; Z88.8 Allergy status to other drugs, medicaments and biological substances; Z85.818 Personal history of malignant neoplasm of other sites of lip, oral cavity, and pharynx

== ENCOUNTER → 2025-06-11 | Outpatient (CLI) | payer MEDICARE, OTHER, BC ==
[~2025-06-11] MED LIST changes: +ACET-683 PO; +ASPI81TAEC PO; +CLOP75TA2 PO; +FOLI1TAB11 PO; -LIDOCAINE 5% (LIDODERM) PATCH TD SCH; +LISI40TA10 PO; -LISI40TA4 PO; +METH2.5T48 PO; +ROSU40TA81 PO
[2025-06-11 17:46] LABS: BASO # 0.0 10^3/uL (0.0-0.2); BASO % 0.7 % (0.0-1.0); EOS # 0.2 10^3/uL (0.0-0.5); EOS % 3.0 % (0.0-3.0); LYMPH # 1.3 10^3/uL (1.5-5.0); LYMPH % 22.9 % (24.0-44.0); MONO # 0.4 10^3/uL (0.0-0.8); MONO % 7.9 % (2.0-8.0); NEUTROPHILS # 3.6 10^3/uL (1.5-8.5); NEUTROPHILS % 65.1 % (36.0-66.0); PLATELET COUNT, AUTOMATED 248 10^3/uL (150-450)
[2025-06-11 18:13] LABS: CREATININE, URINE 65.6 MG/DL; MALB URINE SIEMENS 3.0 MG/L
[2025-06-11 18:16] LABS: ALT/SGPT 19.0 U/L (7.0-40); AST/SGOT 21.0 U/L (<34); CALCIUM LEVEL 9.3 MG/DL (8.3-10.6); CARBON DIOXIDE LEVEL 30.0 MMOL/L (20-31); CHLORIDE LEVEL 101.0 MMOL/L (98-107); CHOLESTEROL LEVEL 108.0 MG/DL (<200); CHOLESTEROL RISK RATIO 2.94 (<5); CREATININE FOR GFR 1.41 MG/DL (0.70-1.30); GLOMERULAR FILTRATION RATE 51.3 (>42); LDL CHOLESTEROL 45.3 MG/DL (<100); NON-HDL-C 71.3 MG/DL; POTASSIUM SERUM 4.8 MMOL/L (3.5-5.1); SODIUM LEVEL 139.0 MMOL/L (136-145); TRIGLYCERIDES LEVEL 130.0 MG/DL (<150)
== END ==
LOC: M LABDRWAD 10:44
PROVIDERS: ATTEND Family Medicine
DX: E11.22 Type 2 diabetes mellitus with diabetic chronic kidney disease (principal); N18.9 Chronic kidney disease, unspecified